=== PATIENT | male | born 1935 | race Caucasian/White ===

== ENCOUNTER 2017-09-26 08:39 | Emergency (ER) | payer MEDICARE, OTHER ==
[~2017-09-26] VITALS: Ht 180.3 cm; Wt 106.6 kg
[~2017-09-26 08:39] MED LIST: ADULT LOW DOSE81 MG PO; ALBUTEROL S5 MG/1 ML INH; ALLOPURINOL100 MG PO; AMLODIPINE BESYL5 MG PO; ATENOLOL100 MG PO; ATORVASTATIN CA40 MG PO; CEPHALEXIN500 MG PO; DOXAZOSIN MESYLA1 MG PO; DOXAZOSIN MESYLA8 MG PO; FLOMAX0.4 MG PO; HYDROCODON-ACE1 EA10 PO; IBUPROFEN600 MG PO; LIPITOR20 MG PO; LISINOPRIL10 MG PO; METFORMIN HCL500 MG PO; NORCO 5-325 TA1 EACH PO; OCUVITE SOFTGE1 EACH PO; PANTOPRAZOLE SO40 MG PO; PERCOCET 5-3251 EACH PO; PROTONIX40 MG PO; TESTOSTERO200 MG/1 M IM; TUMS200 MG PO
[2017-09-26] MEDS ORDERED: ONDANSETRON ODT8 MG PO (10:09)
[2017-09-26] MEDS ORDERED: NORCO 5-325 TA1 EACH PO (10:09)
== END 2017-09-26 10:28 | disposition home or self-care (01) ==
LOC: ED 08:39
DX: T21.14XA Burn of first degree of lower back, initial encounter (principal); T31.0 Burns involving less than 10% of body surface; M54.5 Low back pain; I10 Essential (primary) hypertension; Z87.01 Personal history of pneumonia (recurrent); Z91.041 Radiographic dye allergy status; Z79.899 Other long term (current) drug therapy; Z79.82 Long term (current) use of aspirin; X16.XXXA Contact with hot heating appliances, radiators and pipes, initial encounter
CPT/HCPCS: 81001; 99283

== ENCOUNTER 2018-08-19 09:25 | Emergency (ER) | payer MEDICARE, OTHER ==
[~2018-08-19] VITALS: Ht 180.3 cm; Wt 106.6 kg
[~2018-08-19 09:25] MED LIST changes: +ONDANSETRON ODT8 MG PO
== END 2018-08-19 13:36 | disposition home or self-care (01) ==
LOC: ED 09:25
DX: R10.9 Unspecified abdominal pain (principal); I10 Essential (primary) hypertension; Z87.442 Personal history of urinary calculi; Z87.01 Personal history of pneumonia (recurrent); Z90.49 Acquired absence of other specified parts of digestive tract; Z91.041 Radiographic dye allergy status; Z79.899 Other long term (current) drug therapy; Z79.82 Long term (current) use of aspirin
CPT/HCPCS: 99283

== ENCOUNTER 2018-11-24 08:40 | Emergency (ER) | payer MEDICARE, OTHER ==
[~2018-11-24] VITALS: Ht 180.3 cm; Wt 106.6 kg
[2018-11-24] MEDS ORDERED: NORVASC5 MG PO (12:20)
[2018-11-24] MEDS ORDERED: LIPITOR40 MG PO (12:21)
== END 2018-11-24 13:52 | disposition home or self-care (01) ==
LOC: ED 08:40
PROC: 4A0D7LZ Measurement of Urinary Volume, Via Natural or Artificial Opening (ICD-10-PCS; principal; 2018-11-24)
DX: R53.1 Weakness (principal); R35.0 Frequency of micturition; I10 Essential (primary) hypertension; Z87.01 Personal history of pneumonia (recurrent); Z87.442 Personal history of urinary calculi; Z90.49 Acquired absence of other specified parts of digestive tract; Z91.041 Radiographic dye allergy status; Z79.899 Other long term (current) drug therapy; Z79.82 Long term (current) use of aspirin
CPT/HCPCS: 51798; 80053; 81001; 84484; 85025; 99284-25; J7040

== ENCOUNTER 2019-12-15 10:17 | Emergency (ER) | payer MEDICARE, OTHER ==
[~2019-12-15] VITALS: Ht 180.3 cm; Wt 106.6 kg
--- OUTSIDE RECORDS SUMMARY | ~2019-12-15 | XMS | Encounter Summary ---
Demographics + + + | Address | [address] | | | [place] [address] | + + + | Home Phone | | + + + | Preferred Language | Unknown | + + + | Marital Status | | + + + | Caodaism Affiliation | 1013 | + + + | Race | Unknown | + + + | Ethnic Group | Unknown | + + + Author + + + | Author | [facility] | | | and [place] | + + + | Organization | [facility] | | | and [place] | + + + | Address | Unknown | + + + | Phone | Unavailable | + + + Support + + + + + | Name | Relationship | Address | Phone | + + + + + | Katie Yusuf | ECON | [address] | | | | | [place] [address] | | + + + + + | Melissa Daley | ECON | [address] | | | | | [place] [address] | | + + + + + Care Team Providers + +------+ + | Care Bacon De Rinder Name | Role | Phone | + +------+ + | Jona Deal MD | PCP | | + +------+ + Reason for Visit +--------+--------+ + | Reason | Onset | Comments | | | Date | | +--------+--------+ + | Other | 06/03/ | | | | 2011 | | +--------+--------+ + Encounter Details +--------+ + + + + | Date | Type | Department | Care Team | Description | +--------+ + + + + | 06/03/ | Telephone | [facility] | Jared Garcia, | Other | | 2011 | | PULMONARY [address] | RN | | | | | [place], | | | | | | [place] [address] | | | | | | [phone] | | | +--------+ + + + + Social History + +-------+ +--------+------+ | Tobacco Use | Types | Packs/Day | Years | Date | | | | | Used | | + +-------+ +--------+------+ | Never Smoker | | | | | + +-------+ +--------+------+ + + +---------+ + | Alcohol Use | Drinks/Week | oz/Week | Comments | + + +---------+ + | No | | | | + + +---------+ + + + + | Sex Assigned at | Date Recorded | | | | + + + | Not on file | | + + + documented as of this encounter Miscellaneous Notes Telephone Encounter - Jared Garcia RN - 06/03/2012 2:30 PM PSTSusan Velasquez and relay ed this message. Okay per patient.Electronically signed by Jared Garcia RN at 2 2:30 PM PSTTelephone Encounter - Jared Garcia RN - 06/03/2012 2:29 PM PSTKoby masters opied by JARED GARCIA on ThuJun 03, 2012 1429 ------ Message from: ERNESTO QUACH Created: ThuJun 02, 2012 1305 Please let Mr. Daley know his chest x-ray looks improved. documented in this encounter Plan of Treatment +--------+---------+ + + + | Date | Type | Specialty | Care Team | Description | +--------+---------+ + + + | 01/12/ | Office | Neurology | Erica Nova | | | 2020 | Visit | | MD Sebastian [address] | | | | | | [place] | | | | | | [place] [address] | | | | | | [phone] | | | | | | | | +--------+---------+ + + + documented as of this encounter Visit Diagnoses Not on filedocumented in this encounter"
--- OUTSIDE RECORDS SUMMARY | ~2019-12-15 | XMS | Encounter Summary ---
Demographics + + + | Address | [address] | | | [place] [address] | + + + | Home Phone | | + + + | Preferred Language | Unknown | + + + | Marital Status | | + + + | Anabaptist Affiliation | 1013 | + + + | Race | Unknown | + + + | Ethnic Group | Unknown | + + + Author + + + | Author | [facility] | | | and [place] | + + + | Organization | [facility] | | | and [...] | | | | | [place] [address] | | + + + + + | Melissa Daley | ECON | [address] | | | | | [place] [address] | | + + + + + Care Team Providers + +------+ + | Care Rocket Engine Component Mechanic Name | Role | Phone | + +------+ + | Unknown, Doctor | PCP | | + +------+ + Encounter Details +--------+ + + + + | Date | Type | Department | Care Team | Description | +--------+ + + + + | 05/31/ | Abstract | [facility] [place] | Offenstein, | Abnormal chest CT; | | 2011 | | PULMONARY [address] | Carmelita Penny MD | Respiratory failure | | | | [place], | | ([facility]); Chronic | | | | [place] [address] | | hypoxemic | | | | [phone] | | respiratory failure | | | | | | ([facility]); Pneumonia; | | | | | | Bronchiectasis | | | | | | (HCC); Renal | | | | | | calculi; GERD | | | | | | (gastroesophageal | | | | | | reflux disease); | | | | | | Osteoarthritis; | | | | | | Pulmonary | | | | | | hypertension (HCC); | | | | | | Dyslipidemia | +--------+ + + + + Social [...] + + + | Blood Pressure | 153/86 | 05/31/2012 1:14 PM | | | | | PST | | + + + + + | Pulse | 72 | 05/31/2012 1:14 PM | | | | | PST | | + + + + + | Temperature | 36.4 C (97.5 F) | 05/31/2012 1:14 PM | | | | | PST | | + + + + + | Respiratory Rate | 20 | 05/31/2012 1:14 PM | | | | | PST | | + + + + + | Oxygen Saturation | 90% | 05/31/2012 1:14 PM | | | | | PST | | + + + + + | Inhaled Oxygen | - | - | | | Concentration | | | | + + + + + | Weight | - | - | | + + + + + | Height | - | - | | + + + + + | Body Mass Index | - | - | | + + + + + documented in this encounter Plan of Treatment +--------+---------+ + + + | Date | Type | Specialty | Care Team | Description | +--------+---------+ + + + | 01/12/ | Office | Neurology | Erica Nova | | | 2019 | Visit | | MD Sebastian [address] | | | | | | [place] | | | | | | [place] [address] | | | | | | [phone] | | | | | | | | +--------+---------+ + + + documented as of this encounter Visit Diagnoses + + | Diagnosis | + + | Abnormal chest CT Nonspecific (abnormal) findings on radiological and other | | examination of other intrathoracic organs | + + | Respiratory failure (HCC) Acute respiratory failure | + + | Chronic hypoxemic respiratory failure (HCC) Chronic respiratory failure | + + | Pneumonia Pneumonia, organism unspecified | + + | Bronchiectasis (HCC) Bronchiectasis without acute exacerbation | + + | Renal calculi Calculus of kidney | + + | GERD (gastroesophageal reflux disease) Esophageal reflux | + + | Osteoarthritis Osteoarthrosis, unspecified whether generalized or localized, | | unspecified site | + + | Pulmonary hypertension (HCC) Other chronic pulmonary heart diseases | + + | Dyslipidemia Other and unspecified hyperlipidemia | + + documented in this encounter"
--- OUTSIDE RECORDS SUMMARY | ~2019-12-15 | XMS | Clinical Summary ---
Demographics + + + | Address | [address] | | | [place] [address] | + + + | Home Phone | | + + + | Preferred Language | Unknown | + + + | Marital Status | | + + + | Restorationism Affiliation | 1013 | + + + | Race | Unknown | + + + | Ethnic Group | Unknown | + + + Author + + + | Author | [facility] | | | and [place] | + + + | Organization | [facility] | | | [...] | | | | | [place] [address] | | + + + + + | Melissa Daley | ECON | [address] | | | | | [place] [address] | | + + + + + Care Team Providers + +------+ + | Care Laboratory Mechanic Helper Name | Role | Phone | + +------+ + | Jona Deal MD | PCP | | + +------+ + Allergies + + + + + + | Active Allergy | Reactions | Severity | Noted | Comments | | | | | Date | | + + + + + + | Meperidine | | | 12/04/10 | | | | | | 12 | | + + + + + + | Iodine | | | 12 | IV Iodine | | | | | 12 | | + + + + + + | Morphine | | | 1220 | | | | | | 12 | | + + + + + + Medications + + + +---------+------+------+-------+ | Medication | Sig | Dispensed | Refills | Star | End | Statu | | | | | | t | Date | s | | | | | | Date | | | + + + +---------+------+------+-------+ | allopurinol | Take 100 mg by mouth | | 0 | | | Activ | | (ZYLOPRIM) 100 mg | Daily. | | | | | e | | tablet | | | | | | | + + + +---------+------+------+-------+ | amLODIPine | Take 2.5 mg by mouth | | 0 | | | Activ | | (NORVASC) 5 mg | Daily. | | | | | e | | tablet | | | | | | | + + + +---------+------+------+-------+ | atorvaSTATin | Take 20 mg by mouth | | 0 | 12/1 | | Activ | | (LIPITOR) 40 mg | nightly. | | | / | | e | | tablet | | | | 16 | | | + + + +---------+------+------+-------+ | doxazosin | take 1/2 tablet by | | 0 | 01/3 | | Activ | | (CARDURA) 8 MG | mouth twice a day | | | 0/20 | | e | | tablet | | | | 17 | | | + + + +---------+------+------+-------+ | pantoprazole | Take 40 mg by mouth | | 0 | 11/2 | | Activ | | (PROTONIX) 40 mg | Daily. | | | /20 | | e | | tablet | | | | 16 | | | + + + +---------+------+------+-------+ | aspirin 325 mg | Take 325 mg by mouth | | 0 | | | Activ | | tablet | Daily. | | | | | e | + + + +---------+------+------+-------+ | atenolol | Take 1 tablet by | | 0 | 05/22 | | Activ | | (TENORMIN) 50 mg | mouth 2 times daily. 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 | 2014 | | classifiable elsewhere | | + + + | Sleepiness | 2014 | + + + | Abnormal humeral head xray | 07/26/2013 | + + + | Diabetes mellitus, type 2 | 04/01/2013 | + + + | Chronic rhinitis | 06/02/2012 | + + + | BOOP (bronchiolitis obliterans with organizing pneumonia) | 06/02/2012 | + + + | Bronchiectasis | 05/31/2012 | + + + | GERD (gastroesophageal reflux disease) | 05/31/2012 | + + + | Osteoarthritis | 05/31/2012 | + + + | Dyslipidemia | 05/31/2012 | + + + | Peripheral vascular disease | | + + + | Prostatic hyperplasia, benign localized, with obstruction | | + + + | Gastro-esophageal reflux disease with esophagitis | | + + + | Gout | | + + + | Bilateral nephrolithiasis | | + + + | Intermittent claudication | | + + + | Hyperlipoproteinemia | | + + + + + | Overview: Hyperlipoproteinemia Type-Ii-a | + + Resolved Problems + + + + | Problem | Noted | Resolved | | | Date | Date | + + + + | Diabetes in | 06/02/20 | | | | 12 | 2 | + + + + | 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 | | | | 12 | 3 | + + + + | Abnormal chest CT | 05/31/20 | | | | 12 | 2 | + + + + | Respiratory failure | 05/31/20 | | | | 12 | 2 | + + + + | Chronic hypoxemic respiratory failure | 05/31/20 | | | | 12 | 2 | + + + + | Pneumonia | 05/31/20 | | | | 12 | 3 | + + + + | Renal calculi | 05/31/20 | | | | 12 | 3 | + + + + | Pulmonary hypertension | 05/31/20 | | | | 12 | 2 | + + + + Encounters +--------+ + + + + | Date | Type | Specialty | Care Team | Description | +--------+ + + + + | 12/14/ | Imaging | Radiology | Sowmya Sykes | | 2019 | Exam | | MD Joy | | +--------+ + + + + | 12/14/ | Hospital | | Kiko Garrido, | | | 2019 | Encounter | | | | +--------+ + + + + | 09/25/ | Telephone | Neurology | Erica Nova | Appointment | | 2019 | | | MD Sebastian | | +--------+ + + + + from Last 3 Months Immunizations + + + + | Name | Administration Dates | Next Due | + + + + | INFLUENZA PF 16 Y OR | 03/25/2013, 05/25/2012 | | | >,TRIVALENT | | | | RECOMBINANT | | | + + + + | PNEUMOCOCCAL | 07/21/2012, 06/23/2002 | | | POLYSACCHARIDE | | | | 23-VALENT (PPSV23) | | | + + + + Family History + + +------+ + | Medical History | Relation | Name | Comments | + + +------+ + | Heart attack | Father | | | + + +------+ + | Kidney disease | Sister | | | + + +------+ + | Other (see comment) | Sister | | hemodialysis | + + +------+ + | Hypertension | Sister | | | + + +------+ + | Diabetes | Sister | | | + + +------+ + + +------+ + + | Relation | Name | Status | Comments | + +------+ + + | Father | | | | + +------+ + + | Mother | | | | + +------+ + + | Sister | | | | + +------+ + + | Sister | | | | + +------+ + + | Sister | | | | + +------+ + + | Sister | | | | + +------+ + + Social History + +-------+ +--------+------+ [...] on file | | + + + Last Filed Vital Signs + + + + + | Vital Sign | Reading | Time Taken | Comments | + + + + + | Blood Pressure | 142/86 | 06/08/2017 2:16 PM | | | | | PST | | + + + + + | Pulse | 66 | 06/08/2017 2:16 PM | | | | | PST | | + + + + + | Temperature | 37.1 C (98.8 F) | 06/08/2017 2:16 PM | | | | | PST | | + + + + + | Respiratory Rate | 18 | 06/08/2017 2:16 PM | | | | | PST | | + + + + + | Oxygen Saturation | 95% | 06/08/2017 2:16 PM | | | | | PST | | + + + + + | Inhaled Oxygen | - | - | | | Concentration | | | | + + + + + | Weight | 109.5 kg (241 lb 6.5 | 06/08/2017 2:16 PM | | | | oz) | PST | | + + + + + | Height | 175.3 cm (5' 9") | 06/08/2017 2:16 PM | | | | | PST | | + + + + + | Body Mass Index | 35.65 | 06/08/2017 2:16 PM | | | | | PST | | + + + + + Plan of Treatment +--------+---------+ + + + | Date | Type | Specialty | Care Team | Description | +--------+---------+ + + + | 01/12/ | Office | Neurology | Erica Nova | | | 2020 | Visit | | MD Sebastian [address] | | | | | | [place] | | | | | | [place] [address] | | | | | | [phone] | | | | | | | | +--------+---------+ + + + + + + + + | Health Maintenance | Due Date | Last | Comments | | | | Done | | + + + + + | Diabetic Eye Exam | | | | | | 1 | | | + + + + + | Diabetic Foot Exam | | | | | | 1 | | | + + + + + | Vaccine: | | | | | Dtap/Tdap/Td (1 - | 2 | | | | Tdap) | | | | + + + + + | Vaccine: Zoster (1 | | | | | of 2) | 3 | | | + + + + + | Hemoglobin A1c | | 01/13/20 | | | Screening | 4 | 14 | | + + + + + | Adult Annual | | | | | Wellness Visit | 5 | | | + + + + + | Microalbumin | | | | | Screening | 5 | | | + + + + + | Vaccine: Influenza | | 03/25/20 | | | (Season Ended) | 0 | 13, | | | | | 05/25/20 | | | | | 12 | | + + + + + | Vaccine: | Completed | 07/21/19 | | | Pneumococcal 65+ | | 13, | | | | | 06/23/19 | | | | | 03 | | + + + + + Procedures + +--------+ + + + | Procedure Name | Priori | Date/Time | Associated Diagnosis | Comments | | | ty | | | | + +--------+ + + + | CT ABDOMEN PELVIS WO | Routin | 12/15/2019 | | Results for this | | CONTRAST | e | 3:03 PM | | procedure are in the | | | | PDT | | results section. | + +--------+ + + + from Last [address] Abdomen Pelvis wo Contrast (12/15/2019 3:03 PM PDT) + + | Specimen | [...] | | | + +---------+ + + from Last 3 Months Insurance + +--------+ +--------+ + +--------+ | Payer | Benefi | Subscriber | Effect | Phone | Address | Type | | | t Plan | ID | mike | | | | | | / | | Dates | | | | | | Group | | | | | | + +--------+ +--------+ + +--------+ | MEDICARE | MEDICA | [id number] | 12/20/18 | [phone] | | Medica | | | RE | | 98-Pre | 5 | | re | | | PART A | | sent | | | | | | AND B | | | | | | + +--------+ +--------+ + +--------+ | MEDICARE | MEDICA | [id number] | 12/20/18 | [phone] | | Medica | | | RE | | 98-Pre | 5 | | re | | | PART A | | sent | | | | | | AND B | | | | | | + +--------+ +--------+ + +--------+ | MODA | MODA | [id number] | 06/22/19 | [phone] | [address] | Indemn | | | HEALTH | | 19-Pre | 9 | [phone] | ity | | | MDCR | | sent | | [place], | | | | [place] | | | | [place] [address] | | + +--------+ +--------+ + +--------+ | MODA | MODA | [id number] | 08/21/19 | [phone] | [address] | Indemn | | | HEALTH | | 08-Pre | 9 | [phone] | ity | | | MDCR | | sent | | [place], | | | | [place] | | | | [place] [address] | | + +--------+ +--------+ + +--------+ + +--------+ +--------+ + + | Guarantor Name | Accoun | Relation to | Date | Phone | Billing Address | | | t Type | Patient | of | | | | | | | | | | + +--------+ +--------+ + + | Ron Daley | Person | Self [birth year] | [address] | | [place] | al/Fam | | 1935 | [phone] | [address] [place], | | | [place] | | | [address] (Home) | [place] [address] | + +--------+ +--------+ + + | Ron Daley | Person | Self | [birth year] | [address] | | [place] | al/Fam | | 1935 | [phone] | [address] [place], | | | [place] | | | [address] (Home) | [place] [address] | + +--------+ +--------+ + + Advance Directives + + + + + | Type | Date Recorded | Patient | Explanation | | | | Composing Machine Operator/Tender | | + + + + + | Power of | | | | | Strip Deburrer | | | | + + + + + | Advance | | | | | Directive | | | | + + + + +
--- OUTSIDE RECORDS SUMMARY | ~2019-12-15 | XMS | Encounter Summary ---
Demographics + + + | Address | [address] | | | [place] [address] | + + + | Home Phone | | + + + | Preferred Language | Unknown | + + + | Marital Status | | + + + | Samaritan Affiliation | 1013 | + + + | Race | Unknown | + + + | Ethnic Group | Unknown | + + + Author + + + | Author | [facility] | | | and [place] | + + + | Organization | [facility] | | | [...] | | | | | [place] [address] | | + + + + + | Melissa Sheldon | ECON | [address] | | | | | [place] [address] | | + + + + + Care Team Providers + +------+ + | Care Triage Specialist Name | Role | Phone | + +------+ + | Jona Deal MD | PCP | | + +------+ + Encounter Details +--------+ + + + + | Date | Type | Department | Care Team | Description | +--------+ + + + + | 07/21/ | Hospital | [facility] | Offenstein, | BOOP (bronchiolitis | | 2012 - | Encounter | MED CTR XRAY [address] | Carmelita Penny MD | obliterans with | | | | [place] | | organizing | | 07/23/ | | [place] [address] | | pneumonia) (HCC) | | 2012 | | [phone] | | | +--------+ + + + [...] +---------+ + + | metFORMIN | Take 500 mg by mouth | | 0 | 07/21/19 | | | (GLUCOPHAGE) 500 mg | 2 times daily. | | | 13 | 3 | | tablet | | | | | | + + + +---------+ + + | metFORMIN | Take 1 tablet by | 30 | 0 | 07/21/19 | | | (GLUCOPHAGE) 500 mg | mouth daily (with | tablet | | 13 | 3 | | tabletIndications: | breakfast). | | | | | | BOOP (bronchiolitis | | | | | | | obliterans with | | | | | | | organizing | | | | | | | pneumonia) ([facility]) | | | | | | + + + +---------+ + + | omeprazole | Take 20 mg by mouth | | 0 | | | | (PRILOSEC) 20 mg | 2 times daily. | | | | 3 | | capsule | | | | | | + + + +---------+ + + | predniSONE | Take 0.5 tablets by | | 0 | 07/21/19 | | | (DELTASONE) 10 mg | mouth Every other | | | 13 | 3 | | tabletIndications: | day. | | | | | | BOOP (bronchiolitis | | | | | | | obliterans with | | | | | | | organizing | | | | | | | pneumonia) ([facility]) | | | | | | + + + +---------+ + + | testosterone | Inject 200 mg of | | 0 | | 02/06/201 | | (ANDROGEL) 50 mg/5 g | [...] | | | | | [place] [address] | | | | | | [phone] | | | | | | | | +--------+---------+ + + + documented as of this encounter Procedures + +--------+ + + + | Procedure Name | Priori | Date/Time | Associated Diagnosis | Comments | | | ty | | | | + +--------+ + + + | XR CHEST PA AND | Routin | 07/21/2012 | BOOP | Results for this | | LATERAL | e | 11:21 AM | (bronchiolitis | procedure are in the | | | | PST | obliterans with | results section. | | | | | organizing | | | | | | pneumonia) (HCC) | | + +--------+ + + + documented in this encounter Results XR Chest PA and Lateral (07/21/2012 11:21 AM PST) + + | Specimen | + + | | + + + + + | Narrative | Performed At | + + + | [facility] | [place] | | Department [address] [place] | [facility] | | [ rep ct [address]] [ rep ct [facility] | | st zip] Signed | - IMAGING | | | | | Patient Name: RON SHELDON V Physician: | | | OFFE. : 1935 Age: 77 Sex: M Unit #: [id number] | | | Exam Date: 07/21/12 [place] [facility] [place] | | Report #: [id number] Page: | | | %(RAD)RES..mtdd.print.filter("pg") of %(RAD) | | | RES..mtdd.print.filter("tpg") | | | | | | Accession Number: [id number] | | | PA AND LATERAL TWO VIEW CHEST X-RAY CLINICAL HISTORY: | | | FOLLOW UP BOOP. COMPARISON: 06/23/2012 and multiple | | | x-rays dating back to April 2012. CT chest 05/17/2012. | | | FINDINGS: Heart size and mediastinal contours are within normal | | | limits. There is stable widespread patchy increased lung | | | opacification with linear and patchy components. Density in the | | | region of the horizontal fissure is unchanged, consistent with | | | scarring. Perihilar region increased density is also unchanged. | | | There is no superimposed focal consolidation to suggest pneumonia. | | | There is no pleural effusion or pneumothorax. There is | | | flattening of the hemidiaphragms. There is diffuse degenerative | | | disk disease with bridging osteophyte formation and some suggestion of | | | ankylosis. There is osteopenia. Degenerative change is seen in | | | both shoulders. IMPRESSION: NO CHANGE IN THE | | | DIFFUSE PULMONARY DENSITIES COMPARED WITH 06/23/2012. | | | Dictated Date/Time: 07/21/2012 11:21 Transcribed Date/Time: | | | 07/21/2012 11:27 Policeman: | | | <<Signature on File>> | | | Kiko | | | Melina Hair MD07/21/121920 <Electronically signed by Kiko Summers | | | Laxmi TERAN> Kiko Hair MD 07/21/12 1121 | | | Policeman: [employer] [id number]/30/13 1127 | | | Carmelita Mckeon MD | | + + + + + + + + | Performing | Address | City/State/Zipcode | Phone Number | | Organization | | | | + + + + + | [facility] | [address] 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
--- OUTSIDE RECORDS SUMMARY | ~2019-12-15 | XMS | Encounter Summary ---
Demographics + + + | Address | [address] | | | [place] [address] | + + + | Home Phone | | + + + | Preferred Language | Unknown | + + + | Marital Status | | + + + | Baptism Affiliation | 1013 | + + + | Race | Unknown | + + + | Ethnic Group | Unknown | + + + Author + + + | Author | [facility] | | | and [place] | + + + | Organization | [facility] | | [...] | | | | | [place] [address] | | + + + + + | Melissa Daley | ECON | [address] | | | | | [place] [address] | | + + + + + Care Team Providers + +------+ + | Care Corporate Counsel Name | Role | Phone | + [...] Description | +--------+--------+ + + + | 12/12/ | Refill | [facility] | Mike, | Medication Refill | | 2012 | | PULMONARY [address] | Carmelita Penny MD | | | | | [place], | | | | | | [place] [address] | | | | | | [phone] | | | +--------+--------+ + + + [...] | Visit | | MD Sebastian [address] | | | | | | [place] | | | | | | [place] [address] | | | | | | [phone] | | | | | | | | +--------+---------+ + + + documented as of this encounter Visit Diagnoses Not on filedocumented in this encounter"
--- OUTSIDE RECORDS SUMMARY | ~2019-12-15 | XMS | Encounter Summary ---
Demographics + + + | Address | [address] | | | [place] [address] | + + + | Home Phone | | + + + | Preferred Language | Unknown | + + + | Marital Status | | + + + | Mandaeism Affiliation | 1013 | + + + | Race | Unknown | + + + | Ethnic Group | Unknown | + + + Author + + + | Author | [facility] | | | and [place] | + + + | Organization | [facility] | | [...] | | | | | [place] [address] | | + + + + + | Melissa Daley | ECON | [address] | | | | | [place] [address] | | + + + + + Care Team Providers + +------+ + | Care Forestry Patrolman Name | Role | Phone | + +------+ + | Jona Mcintosh MD | PCP | | + +------+ + Encounter Details +--------+ + + + + | Date | Type | Department | Care Team | Description | +--------+ + + + + | 04/30/ | Emergency | [facility] | Anthony Ramirez | Syncope, vasovagal | | 2013 | | [facility] | MD [address] | | | | | EM[facility]Y [facility]ENTER | [place], | | | | | [address] [facility] [facility] | [place] [address] | | | | | [place], [place] | [phone] | | | | | [address] | | | | | | [phone] | | | +--------+ + + + [...] + +---------+ + + | fluticasone | | | 0 | 06/29/19 | | | (FLONASE) 50 | | | | 14 | 7 | | mcg/nasal spray | | | | | | + [...] + + documented as of this encounter ED Notes Conversion Transaction, Provider Unknown - 04/30/2014 12:47 PM PSTFormatting of this note m ight be different from the original. ED Notes by Cecelia Alamo at 04/30/14 1247 Author: Cecelia Alamo Service: (none) Author Type: Gravure Printing Machinist Filed: 04/30/141246 Date of Service: 04/30/141246 Status: Signed Researcher: Cecelia Alamo (Gravure Printing Machinist) EKG completed, results given to Dr Hugh Alamo 04/30/141246 Anthony Awan MD - 04/30/2014 12:04 PM PST ED Provider Notes by Anthony Ramirez MD at 04/30/14 1204 Author: Anthony Ramirez MD Service: Emergency Department Author Type: Physician Filed: 04/30/14 1758 Date of Service: 04/30/14 120 Status: Signed Researcher: Anthony Ramirez MD (Physician) [facility] Department of Emergency Medicine 04/30/14 12:04 PM History of Present Illness Patient Identification Ron Daley is a 79 y.o. male. Patient information was obtained from patient. History/Exam limitations: none. Patient presented to the Emergency Department by: Car Chief Complaint Chief Complaint Patient presents with Syncope pt was a visiting in ICU, had syncopal episode. "I was visiting my who had heart s urgery yesterday. I was standing." The patient presents to ED with complaints of syncope. 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 The symptoms are described to be of moderate severity. The patient describe s the quality and location of the symptoms as the following: The pt reports he was visiting his in ICU after she had heart surgery and the began to become lightheaded. The pt's re lative reports the pt stopped talking and began to slide down the wall. The pt's relative re ports the pt was sitting down and would not talk for a minute or less and then began talking again. The pt reports having breakfast this morning. The patient also complains of nausea. Patient denies diaphoresis, fever, cough, or congestion. No care REGIONAL MARKETING DIRECTOR. The pt reports he has never passed out in the past and denies hx of seizures. PMHx: Pneumonia treated with steroids which caused the pt to have high blood sugar. Hypertension. The pt reports having kidney stones about a week ago and reports he has not passed the ston e yet. PCP: JONA MCINTOSH Past Medical History Diagnosis Date Pneumonia 2012 Diabetes mellitus, type 2 Hypertension Gout GERD (gastroesophageal reflux disease) Arthritis Past Surgical History Procedure Laterality Date Knee arthroplasty Bilateral Ankle fusion Right Rotator cuff repair Right Prior to Admission medications Medication Sig Start Date End Date Taking? Authorizing Provider amLODIPine (NORVASC) 2.5 MG tablet Take 2.5 mg by mouth daily. Yes Historical Provider atenolol (TENORMIN) 100 MG tablet Take 100 mg by mouth 2 (two) times daily. Yes Historica l Provider atorvastatin (LIPITOR) 20 MG tablet Take 20 mg by mouth nightly. Yes Historical Provider doxazosin (CARDURA) 4 MG tablet Take 4 mg by mouth 2 (two) times daily. Yes Historical Pr ovider No Known Allergies History Social History Marital Status: Spouse Name: N/A Number of Children: N/A Years of Education: N/A Occupational History Not on file. Social History Main Topics Smoking status: Never Smoker Smokeless tobacco: Never Used Alcohol Use: No Drug Use: Not on file Sexually Active: Not on file Other Topics Concern Not on file Social History Narrative History reviewed. No pertinent family history. Review of Systems Constitutional: Negative for fever, chills, diaphoresis Eyes: Negative for vision changes Nose: Negative for congestion, nosebleeds Throat: Negative for sore throat CV/Resp: Negative for chest pain, ncwjvabky-[id number]-nkgpka, cough GI: Positive for nausea Negative for abdominal pain, vomiting, or diarrhea : Negative for urinary problems Musculoskeletal: Negative for back pain, joint pain Skin: Negative for rash Neuro/Psych: Positive for syncope and lightheadedness Negative for headache Endo/heme/Lymph: Negative for swollen lymph nodes, easy bruising All other systems reviewed and negative except as noted. Physical Exam BP 134/75 | Pulse 68 | Temp(Src) 98.5 F (36.9 C) (Temporal) | Resp 16 | Wt 105.688 kg ( 233 lb) | SpO2 95% Vital signs interpretation: Normal Pulse Oximetry interpretation: Normal General: Alert, awake, and well oriented, in no apparent distress Eyes: Normal inspection, pupils equal and round, non-icteric HEENT: NCAT Ears normal TMs nl Nose normal Pharynx normal Nl oropharyngeal mucosa Voice nl Neck: Normal inspection, normal ROM with no apparent pain No lymphadenopathy No JVD Cardiovascular: Rate and rhythm normal No murmurs, no bruit or gallop Good distal pulses and good cap refill Chest: Non tender, good excursion Respiratory: Breath sounds normal bilaterally No rales, wheezing or rhonchi No accessory muscle use Abdomen: Soft, non-tender at this time, non-distended Normal active bowel sounds No organomegaly No guarding or rebound Back: Normal inspection, good ROM without apparent pain Extremities: No edema, good ROM without aparent pain Skin: Color normal Warm and dry No rash Neuro: Alert, no AMS No motor deficit No sensory deficit Medical Decision Making and Emergency Department Course ED Department Course Patient presents to ED with complaints of one syncopal episode. The pt has an unremarkable exam. My DDx includes, but is not limited to: vasovagal syncope, ACS, arrhythmia, bleeding, cerebral vascular insufficiency, vs other. Will order EKG, cardiac panel, and reevaluate the patient. Patient is stable at this time. 12:11 PM Cardiac panel reviewed, which appears good. Will repeat heart enzyme labs. 12:59 PM Pt reevaluation. Pt is stable and reports feeling better at this time. I have disc ussed my clinical impression and treatment plan with the pt. We have specifically discussed the signs and symptoms that would constitute the need for an immediate return to the ED, the importance of continued outpatient f/u and the importance of compliance with the d/c instru ctions. I have answered any questions that the pt has to the best of my ability. Based upon the pt s history, physical exam, ED course, and diagnostic studies, I feel that there is n o current emergent medical condition that warrants admission, transfer, or further ED treatm ent at this time. Records Reviewed Old medical records. Nursing notes. Laboratory Evaluation Results Procedure Component Value Ref Range Date/Time Troponin I, Lab [[id number]] Collected: 04/30/14 1134 Order Status: Completed Updated: 04/30/14 1205 Specimen Information: Blood TROPONIN I <0.020 0.00 - 0.10 ng/mL Cardiac Panel [[id number]] (Abnormal) Collected: 04/30/14 1134 Order Status: Completed Updated: 04/30/14 1205 WBC 5.9 3.8 - 11.0 K/uL RBC 4.28 4.20 - 5.70 M/uL HGB 14.8 13.2 - 17.0 g/dL HCT 44.0 39.0 - 50.0 % MCV 103.0 (H) 80.0 - 100.0 fl MCH 34.6 (H) 27.0 - 34.0 pg MCHC 33.6 32.0 - 35.5 g/dL RDW SD 48.6 37 - 53 fl PLT 175 150 - 400 K/uL MPV 8.5 fl DIFF TYPE AUTOMATED NEUTROPHILS 68.4 % LYMPHOCYTES 23.0 % MONOCYTES 7.5 % EOSINOPHILS 0.4 % BASOPHILS 0.7 % NEUTROPHILS ABS 4.1 1.9 - 7.4 K/uL LYMPHOCYTES ABS 1.4 1.0 - 3.9 K/uL MONOCYTES ABS 0.4 0 - 0.8 K/uL EOSINOPHILS ABS 0.0 0 - 0.5 K/uL BASOPHILS ABS 0.0 0 - 0.1 K/uL SODIUM 143 135 - 143 mmol/L POTASSIUM 3.9 3.5 - 4.9 mmol/L CHLORIDE 112 (H) 99 - 109 mmol/L CO2 26 23 - 32 mmol/L ANION GAP AGAP 9 5 - 20 mmol/L GLUCOSE 114 (H) 65 - 99 mg/dL BUN 15 8 - 25 mg/dL CREATININE 1.09 0.70 - 1.30 mg/dL BUN/CREAT 14 CALCIUM 8.5 8.5 - 10.2 mg/dL TOTAL PROTEIN 6.7 6.3 - 8.2 g/dL Albumin 3.7 3.3 - 4.8 g/dL GLOBULIN 3.1 1.3 - 4.9 g/dL A/G 1.2 1.0 - 2.4 TBIL 1.4 0.1 - 1.5 mg/dL ALK PHOS 93 35 - 115 U/L AST 19 10 - 45 U/L ALT 25 10 - 65 U/L EGFR >60 >60 mL/min/1.73m2 CPK 53 (L) 55 - 400 U/L INR 1.1 APTT 21 (L) 23 - 32 seconds MMB 1.1 0.5 - 3.6 ng/mL CK-MB Index 2.1 I personally reviewed the lab results and they have been posted to the chart. Pertinent po sitive and negative findings have been addressed appropriately. Radiology and EKG Evaluation Imaging Results None Secondary EKG done at 12:43 PM: NSR with a rate of 67 bpm Normal intervals Normal axes Normal ST No signs of ischemia This study has been independently viewed and interpreted by me Anthony Ramirez MD ED Diagnosis Final diagnosis Syncope, vasovagal Disposition: ED Disposition Discharge Condition at discharge: Stable Follow-up Information Follow up With Details Comments Contact Info Jona Mcintosh MD In 2 days For follow up [address] [place] [id number] [facility] Emergency Department If symptoms worsen [address] [place] [address] Discharge Medications: Discharge Medication List as of 04/30/2014 1:17 PM Procedures Additional Documentation Procedures Attending Note: Documentation assistance provided by Marisa Yanes (Scribe). Information recorded by the scribe has been reviewed and validated by me. I gumaro [place] with its contents. MD Anthony Calderón MD 04/30/14 5143 onversion Pina saction, Provider Unknown - 04/30/2014 10:31 AM PSTFormatting of this note might be differen t from the original. ED Notes by Anika Lee RN at 04/30/14 1031 Author: Anika Lee RN Service: (none) Author Type: Registered Nurse Filed: 04/30/14 1031 Date of Service: 04/30/14 103 Status: Signed Researcher: Anika Lee RN (Registered Nurse) Laced pt placed in ED Room B for EKG Anika Lee RN 04/30/14 103 docume nted in this encounter Plan of Treatment +--------+---------+ + + + | Date | Type | Specialty | Care Team | Description | +--------+---------+ + + + | 01/12/ | Office | Neurology | Erica Nova | | | 2019 | Visit | | MD Sebastian [address] | | | | | | [place] | | | | | | [place] [address] | | | | | | [phone] | | | | | | | | +--------+---------+ + + + documented as of this encounter Procedures + +--------+ + + + | Procedure Name | Priori | Date/Time | Associated Diagnosis | Comments | | | ty | | | | + +--------+ + + + | ECG 12 LEAD | Routin | 04/30/2014 | | Results for this | | | e | 12:43 PM | | procedure are in the | | | | PST | | results section. | + +--------+ + + + | HISTORICAL LAB PANEL | Routin | 04/30/2014 | | Results for this | | RESULT | e | 11:34 AM | | procedure are in the | | | | PST | | results section. | + +--------+ + + + | TROPONIN I | Routin | 04/30/2014 | | Results for this | | | e | 11:34 AM | | procedure are in the | | | | PST | | results section. | + +--------+ + + + documented in this encounter Results ECG 12 lead (04/30/2014 12:43 PM PST) + + + + + + | Component | Value | Ref Range | Performed | Pathologist | | | | | At | Signature | + + + + + + | DIAGNOSIS: | Normal sinus | | EXTERNAL | | | | rhythmNormal ECGNo | | LAB | | | | previous ECGs | | | | | | availableThis ECG | | | | | | contains Unconfirmed | | | | | | Interpretation | | | | | | Statements. See ED | | | | | | Record for Physician | | | | | | Interpretation. | | | | | | Confirmed by MUSE READ | | | | | | ONLY, -COMPUTER ([id number]), | | | | | | material expeditor Tracie Ortiz | | | | | | (29) on 04/30/2014 | | | | | | 5:19:20 PM | | | | + + + + + + + + | Specimen | + + | | + + + + + | Narrative | Performed At | + + + | Historically converted procedure from [facility] environment | EXTERNAL LAB | + + + + +---------+ + + | Performing | Address | City/State/Zipcode | Phone Number | | Organization | | | | + +---------+ + + | EXTERNAL LAB | | | | + +---------+ + + HISTORICAL LAB PANEL RESULT (04/30/2014 11:34 AM PST) + + + + + -+ | Component | Value | Ref Range | Performed | Pathologist | | | | | At | Signature | + + + + + -+ | WBC | 5.9Comment: Testing | 3.8 - 11.0 K/uL | EXTERNAL | | | | performed at [facility] | | LAB | | | | [address];[place] | | | | | | [address] | | | | + + + + + -+ | Red Blood | 4.28Comment: Testing | 4.20 - 5.70 | EXTERNAL | | | Cells | performed at [facility];[address] | M/uL | LAB | | | Counted | [address];[place] | | | | | | [address] | | | | + + + + + -+ | Hemoglobin | 14.8Comment: Testing | 13.2 - 17.0 | EXTERNAL | | | | performed at [facility];[address] | g/dL | LAB | | | | [address];[place] | | | | | | [address] | | | | + + + + + -+ | Hematocrit, | 44.0Comment: Testing | 39.0 - 50.0 % | EXTERNAL | | | POC | performed at [facility];[address] | | LAB | | | | [address];[place] | | | | | | [address] | | | | + + + + + -+ | MCV | 103.0 (H)Comment: | 80.0 - 100.0 fl | EXTERNAL | | | | Testing performed at | | LAB | | | | [facility];[address] | | | | | | [address];[place] [address] | | | | + + + + + -+ | MCH | 34.6 (H)Comment: Testing | 27.0 - 34.0 pg | EXTERNAL | | | | performed at [facility];[address] | | LAB | | | | [address];[place] | | | | | | [address] | | | | + + + + + -+ | MCHC | 33.6Comment: Testing | 32.0 - 35.5 | EXTERNAL | | | | performed at [facility];[address] | g/dL | LAB | | | | [address];[place] | | | | | | [address] | | | | + + + + + -+ | RDW-CV | 48.6Comment: Testing | 37 - 53 fl | EXTERNAL | | | | performed at [facility];[address] | | LAB | | | | [address];[place] | | | | | | [address] | | | | + + + + + -+ | Platelet | 175Comment: Testing | 150 - 400 K/uL | EXTERNAL | | | Count | performed at [facility];[address] | | LAB | | | Plasma | [address];[place] | | | | | | [address] | | | | + + + + + -+ | MPV | 8.5Comment: Testing | fl | EXTERNAL | | | | performed at [facility];[address] | | LAB | | | | [address];[place] | | | | | | [address] | | | | + + + + + -+ | Differentia | AUTOMATEDComment: | | EXTERNAL | | | l Type | Testing performed at | | LAB | | | | [facility];[address];[place] [address] | | | | + + + + + -+ | % Segmented | 68.4Comment: Testing | % | EXTERNAL | | | | performed at [facility];[address] | | LAB | | | Neutrophils | [address];[place] | | | | | | [address] | | | | + + + + + -+ | % | 23.0Comment: Testing | % | EXTERNAL | | | Lymphocytes | performed at [facility];[address] | | LAB | | | | [address];[place] | | | | | | [address] | | | | + + + + + -+ | % Monocytes | 7.5Comment: Testing | % | EXTERNAL | | | | performed at [facility];[address] | | LAB | | | | [address];[place] | | | | | | [address] | | | | + + + + + -+ | % | 0.4Comment: Testing | % | EXTERNAL | | | Eosinophils | performed at [facility];[address] | | LAB | | | | [address];[place] | | | | | | [address] | | | | + + + + + -+ | % Basophils | 0.7Comment: Testing | % | EXTERNAL | | | | performed at [facility];[address] | | LAB | | | | [address];[place] | | | | | | [address] | | | | + + + + + -+ | Absolute | 4.1Comment: Testing | 1.9 - 7.4 K/uL | EXTERNAL | | | Segmented | performed at [facility];[address] | | LAB | | | Neutrophils | [address];[place] | | | | | | [address] | | | | + + + + + -+ | Absolute | 1.4Comment: Testing | 1.0 - 3.9 K/uL | EXTERNAL | | | Lymphocytes | performed at [facility];[address] | | LAB | | | | [address];[place] | | | | | | [address] | | | | + + + + + -+ | Absolute | 0.4Comment: Testing | 0 - 0.8 K/uL | EXTERNAL | | | Monocytes | performed at [facility];[address] | | LAB | | | | [address];[place] | | | | | | [address] | | | | + + + + + -+ | Absolute | 0.0Comment: Testing | 0 - 0.5 K/uL | EXTERNAL | | | Eosinophils | performed at [facility];[address] | | LAB | | | | [address];[place] | | | | | | [address] | | | | + + + + + -+ | Absolute | 0.0Comment: Testing | 0 - 0.1 K/uL | EXTERNAL | | | Basophils | performed at [facility];[address] | | LAB | | | | [address];[place] | | | | | | [address] | | | | + + + + + -+ | Na | 143Comment: Testing | 135 - 143 | EXTERNAL | | | | performed at [facility];[address] | mmol/L | LAB | | | | [address];[place] | | | | | | [address] | | | | + + + + + -+ | K | 3.9Comment: Testing | 3.5 - 4.9 | EXTERNAL | | | | performed at [facility];[address] | mmol/L | LAB | | | | [address];[place] | | | | | | [address] | | | | + + + + + -+ | Cl | 112 (H)Comment: Testing | 99 - 109 mmol/L | EXTERNAL | | | | performed at [facility];[address] | | LAB | | | | [address];[place] | | | | | | [address] | | | | + + + + + -+ | CO2 | 26Comment: Testing | 23 - 32 mmol/L | EXTERNAL | | | | performed at [facility];[address] | | LAB | | | | [address];[place] | | | | | | [address] | | | | + + + + + -+ | Anion Gap | 9Comment: Testing | 5 - 20 mmol/L | EXTERNAL | | | | performed at [facility];[address] | | LAB | | | | [address];[place] | | | | | | [address] | | | | + + + + + -+ | Glucose, | 114 (H)Comment: Testing | 65 - 99 mg/dL | EXTERNAL | | | Fasting | performed at [facility];[address] | | LAB | | | | [address];[place] | | | | | | [address] | | | | + + + + + -+ | BUN | 15Comment: Testing | 8 - 25 mg/dL | EXTERNAL | | | | performed at [facility];[address] | | LAB | | | | [address];[place] | | | | | | [address] | | | | + + + + + -+ | Creatinine | 1.09Comment: Testing | 0.70 - 1.30 | EXTERNAL | | | | performed at [facility];[address] | mg/dL | LAB | | | | [address];[place] | | | | | | [address] | | | | + + + + + -+ | BUN/Creatin | 14Comment: Testing | | EXTERNAL | | | ine Ratio | performed at [facility];[address] | | LAB | | | | [address];[place] | | | | | | [address] | | | | + + + + + -+ | Calcium | 8.5Comment: Testing | 8.5 - 10.2 | EXTERNAL | | | | performed at [facility];[address] | mg/dL | LAB | | | | [address];[place] | | | | | | [address] | | | | + + + + + -+ | Protein, | 6.7Comment: Testing | 6.3 - 8.2 g/dL | EXTERNAL | | | Total | performed at [facility];[address] | | LAB | | | | [address];[place] | | | | | | [address] | | | | + + + + + -+ | Albumin | 3.7Comment: Testing | 3.3 - 4.8 g/dL | EXTERNAL | | | | performed at [facility];[address] | | LAB | | | | [address];[place] | | | | | | [address] | | | | + + + + + -+ | Globulin | 3.1Comment: Testing | 1.3 - 4.9 g/dL | EXTERNAL | | | | performed at [facility];[address] | | LAB | | | | [address];[place] | | | | | | [address] | | | | + + + + + -+ | A/G Ratio | 1.2Comment: Testing | 1.0 - 2.4 | EXTERNAL | | | | performed at [facility];[address] | | LAB | | | | [address];[place] | | | | | | [address] | | | | + + + + + -+ | Bilirubin | 1.4Comment: Testing | 0.1 - 1.5 mg/dL | EXTERNAL | | | Total | performed at [facility];[address] | | LAB | | | | [address];[place] | | | | | | [address] | | | | + + + + + -+ | ALP, | 93Comment: Testing | 35 - 115 U/L | EXTERNAL | | | External | performed at [facility];[address] | | LAB | | | | [address];[place] | | | | | | [address] | | | | + + + + + -+ | AST | 19Comment: Testing | 10 - 45 U/L | EXTERNAL | | | | performed at [facility];[address] | | LAB | | | | [address];[place] | | | | | | [address] | | | | + + + + + -+ | ALT | 25Comment: Testing | 10 - 65 U/L | EXTERNAL | | | | performed at [facility];[address] | | LAB | | | | [address];[place] | | | | | | [address] | | | | + + + + + -+ | Estimated | >60Comment: GFR <60: | mL/min/1.73m2 | EXTERNAL | | | GFR | CHRONIC KIDNEY DISEASE, | | LAB | | | | IF FOUND OVER A 3 MONTH | | | | | | PERIOD.GFR <15: KIDNEY | | | | | | FAILURE.FOR | | | | | | AMERICANS, MULTIPLY THE | | | | | | CALCULATED GFR BY | | | | | | 1.210.Testing performed | | | | | | at [facility];[address] | | | | | | [address];[place] [address] | | | | + + + + + -+ | CK, Total | 53 (L)Comment: Testing | 55 - 400 U/L | EXTERNAL | | | | performed at [facility];[address] | | LAB | | | | [address];[place] | | | | | | [address] | | | | + + + + + -+ | INR | 1.1Comment: REFERENCE | | EXTERNAL | | | | RANGE:0.9 - 1.2 | | LAB | | | | NON-ANTICOAGULATED2.0 | | | | | | - 3.0 ALL OTHER | | | | | | THERAPEUTIC | | | | | | INDICATIONS2.5 - 3.5 | | | | | | MECHANICAL HEART VALVES, | | | | | | RECURRENT OR SYSTEMIC | | | | | | EMBOLISMTesting | | | | | | performed at [facility];[address] | | | | | | [address];[place] | | | | | | [address] | | | | + + + + + -+ | aPTT, | 21 (L)Comment: Testing | 23 - 32 seconds | EXTERNAL | | | Patient | performed at [facility];[address] | | LAB | | | | [address];[place] | | | | | | [address] | | | | + + + + + -+ | CK-MB | 1.1Comment: Testing | 0.5 - 3.6 ng/mL | EXTERNAL | | | | performed at [facility];[address] | | LAB | | | | [address];[place] | | | | | | [address] | | | | + + + + + -+ | CK-MB Index | 2.1Comment: CK INDEX | | EXTERNAL | | | | INTERPRETATION: | | LAB | | | | MMB ng/mL | | | | | | | | | | | |CK INDEX INTERPRETATION: | | | | | | MMB ng/mL | | | | | | | | | | + + + + + -+ + + | Specimen | + + | | + + + +---------+ + + | Performing | Address | City/State/Zipcode | Phone Number | | Organization | | | | + +---------+ + + | EXTERNAL LAB | | | | + +---------+ + + Troponin I (04/30/2014 11:34 AM PST) + + + + + + | Component | Value | Ref Range | Performed | Pathologist | | | | | At | Signature | + + + + + + | Troponin I, | <0.020Comment: 0.00 to | 0.00 - 0.10 | EXTERNAL | | | Qual | 0.10 CONSISTENT WITH | ng/mL | LAB | | | | NORMAL POPULATION0.11 | | | | | | to 0.60 CONSISTENT | | | | | | WITH INCREASED RISK FOR | | | | | | ADVERSE OUTCOMES> 0.60 | | | | | | CONSISTENT | | | | | | WITH WHO CRITERIA FOR | | | | | | ACUTE SC Testing | | | | | | performed at [facility];[address] | | | | | | [facility];[place], [place] | | | | | | [address] | | | | + + + + + + + + | Specimen | + + | Blood specimen | | (specimen) | + + + +---------+ + + | Performing | Address | City/State/Zipcode | Phone Number | | Organization | | | | + +---------+ + + | EXTERNAL LAB | | | | + +---------+ + + documented in this encounter Visit Diagnoses + + | Diagnosis | + + | Syncope, vasovagal Syncope and collapse | + + documented in this encounter
--- OUTSIDE RECORDS SUMMARY | ~2019-12-15 | XMS | Encounter Summary ---
Demographics + + + | Address | [address] | | | [place] [address] | + + + | Home Phone | | + + + | Preferred Language | Unknown | + + + | Marital Status | | + + + | Lutheran Affiliation | 1013 | + + + | Race | Unknown | + + + | Ethnic Group | Unknown | + + + Author + + + | Author | [facility] | | | and [place] | + + + | Organization | [facility] | | | [...] | | | | | [place] [address] | | + + + + + | Melissa Daley | ECON | [address] | | | | | [place] [address] | | + + + + + Care Team Providers + +------+ + | Care Cement Mason Apprentice Name | Role | Phone | + +------+ + | Jona Deal MD | PCP | | + +------+ + Encounter Details +--------+ + + + + | Date | Type | Department | Care Team | Description | +--------+ + + + + | // | Orders Only | [facility] | Marci Mcneal, | Nocturnal hypoxemia | | 2013 | | PULMONARY [address] | RN | | | | | [place], | | | | | | [place] [address] | | | | | | [phone] | | | +--------+ + + + [...] | | | | | [place] [address] | | | | | | [phone] | | | | | | | | +--------+---------+ + + + documented as of this encounter Visit Diagnoses + + | Diagnosis | + + | Nocturnal hypoxemia Hypoxemia | + + documented in this encounter"
--- OUTSIDE RECORDS SUMMARY | ~2019-12-15 | XMS | Encounter Summary ---
Demographics + + + | Address | [address] | | | [place] [address] | + + + | Home Phone [...] | | | | | [place] [address] | | + + + + + | Melissa Sheldon | ECON | [address] | | | | | [place] [address] | | + + + + + Care Team Providers + +------+ + | Care Public Health Dentist Name | Role | Phone | + [...] Description | +--------+---------+ + + + | 06/01/ | Office | [facility] | [place], | BOOP (bronchiolitis | | 2011 | Visit | PULMONARY [address] | Carmelita Penny MD | obliterans with | | | | [place], | | organizing | | | | [place] [address] | | pneumonia) ([facility]); | | | | [phone] | | Hypoxemia; Chronic | | | | | | rhinitis; | | | | | | 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[facility]) | +--------+---------+ + + + Social History [...] + + + | Blood Pressure | 120/70 | 06/01/2012 9:45 AM | | | | | PST | | + + + + + | Pulse | 68 | 06/01/2012 9:45 AM | | | | | PST | | + + + + + | Temperature | - | - | | + + + + + | Respiratory Rate | - | - | | + + + + + | Oxygen Saturation | 93% | 06/01/2012 9:45 AM | | | | | PST | | + + + + + | Inhaled Oxygen | - | - | | | Concentration | | | | + + + + + | Weight | 101.5 kg (223 lb | 06/01/2012 9:45 AM | | | | 11.2 oz) | PST | | + + + + + | Height | 175.3 cm (5' 9") | 06/01/2012 9:45 AM | | | | | PST | | + + + + + | Body Mass Index | 33.03 | 06/01/2012 9:45 AM | | | | | PST | | + + + + + documented in this encounter Patient Instructions Patient Instructions Carmelita Mckeon MD - 06/01/2012 10:43 AM PSTPlease make ling drapero w up with Dr. Deal regarding diabetes and having home health discontinued. documented in this encounter Progress Notes Carmelita Mckeon MD - 06/01/2012 10:20 AM PSTFormatting of this note might be differe nt from the original. Pulmonary Follow Up HPI Ron Sheldon is a 77 y.o. male patient of Jona Deal here today for follow u p of BOOP. He comes in today for post hospital follow up. He was recently hospitalized and diagnosed w ith BOOP, and responded well to steroids. He went home on oxygen, 2LPM with exertion and 2LP M at night. He is wearing the oxygen with exertion with longer walks, but not simple things like shaving, showering and getting to the breakfast table. He is wearing it reliably at [facility] [place]. He is coughing almost not at all, only a mild throat tickle. He has not coughed up any b lood. He has had some blood clots from his nose. He does feel like the shortness of breath i s getting better and better. He walked seven times around the house last night, which is 150 feet each time. The home health nurse has come twice. His blood sugars have been doing okay. He is running 110 first thing in the morning. At noon he is as high as 220, as well as in the evening. The y are covering him with sliding scale insulin, and he is taking medication as well. He does not have symptoms of heartburn or reflux. The nasal congestion is doing okay. He is using Flonase for the nasal congestion and this is helping. Past Medical History Past Medical History Diagnosis [...] Topics Smoking status: Never Smoker Smokeless tobacco: None Alcohol Use: No Drug Use: No Sexually Active: None Other Topics Concern None Social History Narrative None Allergies: Allergies Allergen Reactions Iodine IV Iodine Meperidine Morphine Medications: Outpatient Encounter Prescriptions as of 06/01/2012 Medication Sig Dispense Refill doxazosin (CARDURA) 4 mg tablet Take 4 mg by mouth 2 times daily. testosterone (ANDROGEL) 50 mg/5 g (1%) gel Inject 200 mg of testosterone into the muscl e Daily. Every three weeks. predniSONE (DELTASONE) 10 mg tablet Take 6 tablets by mouth Daily. metFORMIN (GLUCOPHAGE) 500 mg tablet Take 1 tablet by mouth daily (with breakfast). 30 tablet 0 atenolol (TENORMIN) 100 MG tablet Take 100 mg by mouth 2 times daily. albuterol-ipratropium (DUONEB) 2.5-0.5 mg/3 mL SOLN Take 3 mLs by nebulization. allopurinol (ZYLOPRIM) 100 mg tablet Take 100 mg by mouth 2 times daily. lisinopril (PRINIVIL, ZESTRIL) 10 mg tablet Take 10 mg by mouth Daily. omeprazole (PRILOSEC) 20 mg capsule Take 20 mg by mouth 2 times daily. atorvaSTATin (LIPITOR) 20 mg tablet Take 20 mg by mouth Daily. amLODIPine (NORVASC) 5 mg tablet Take 5 mg by mouth Daily. fluticasone (FLONASE) 50 mcg/nasal spray 2 sprays by Nasal route Daily. @ sprays in eac h nostril daily 16 g 12 acetaminophen (TYLENOL) 650 MG CR tablet Take 650 mg by mouth every 8 hours as needed. Insulin regular sliding scale docusate sodium (COLACE) 100 mg capsule Take 100 mg by mouth Twice daily as needed. Review of Systems Constitutional: Denies fever, chills, sweats. He has not gained weight since discharge. Sleep: He reports he is sleeping better at night. Eyes: Denies vision change and eye irritation. ENT: Denies earache, sore throat, and hoarseness. He has decreased hearing, no change. Resp: See HPI. CV: Denies chest pain, palpitations, syncope, and peripheral edema. GI: Denies nausea, vomiting, and abdominal pain. : Denies difficulty emptying bladder. Nocturia 2-3 times per night. Musculoskeletal: Chronic arthritis. Objective BP 120/70 | Pulse 68 | Ht 1.753 m (5' 9") | Wt 101.47 kg (223 lb 11.2 oz) | BMI 33.03 kg/m2 | SpO2 93% General Appearance: Alert, cooperative, no distress, appears stated age Head: Normocephalic, without obvious abnormality, atraumatic Eyes: PERRL, conjunctiva clear, no scleral icterus, EOM's intact Ears: Normal TM's and external auditory canals, significantly diminished acuity Nose: Nares normal, septum midline, mucosa edematous with turbinate hypertrophy Mouth: No oral lesions or exudate, large tongue, Mallampati 3-4 Neck: Supple, symmetrical, no adenopathy Lungs: No accessory muscle use, breath sounds are slightly diminished, no wheezes, crackl es or rhonchi Chest Wall: No deformity Heart: Regular rate and rhythm, no murmur, rub or gallop Abdomen: Soft, non-tender, non-distended, mildly obese Extremities: No cyanosis, clubbing, or edema Pulses: Radial pulses 2+ and symmetric Skin: Warm and dry Lymph nodes: Cervical and supraclavicular nodes normal Neurologic: Gait normal Data: No new data since hospitalization Assessment /Plan Mr. 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 I think at this point we will taper his steroids, dropping from 60 mg a day to 40 mg a day to day. I will leave him on 40 mg a day of prednisone until I see him at his next vis it in 2 weeks, and likely plan on continuing that for a total of 4 weeks before dropping him to 30 mg. We will check a chest x-ray today, and also ambulating oximetry. He would like to get off of exertional oxygen. We will also do an overnight oximetry, to evaluate to see if he is still desaturating at night, per [facility]'s request. - Pulse oximetry titration today - Overnight oximetry study on room air - XR Chest PA and Lateral today - predniSONE (DELTASONE) 40 mg Daily. Hypoxemia His hypoxemia has improved significantly especially when compared to a couple of weeks ago. We will repeat his ambulating oximetry, and then do nocturnal oximetry testing on room air to confirm that he does require nocturnal oxygen. If he does require nocturnal oxygen, we will repeat his study on 2 L per minute. In the hospital when he was spot checked at night he was satting approximately 90% on 2 L per minute. Chronic rhinitis He has had long-standing issues with chronic rhinitis, which has improved significantly on nasal Flonase. We did discharge him on this medication, and his symptoms continue to be imp roved. 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 I encouraged him to followup with his primary care lynda phoenix and remain on the metformin for now. They feel comfortable with the sliding scale t hat they are on. I am hopeful that with decreasing the prednisone dose, his blood sugars wi ll decrease. His did have some questions today about what optimal blood sugar control should be. I did do some education regarding that blood sugars in the 220 range were too hi gh, and while I did not know what the optimal control was considered currently, my feeling w as that ideally his blood sugar should likely be less than 120 in the fasting state. His me tformin prescription was refilled today as they only have several more days left on the pres cription. - metFORMIN (GLUCOPHAGE) 500 mg tablet; Take 1 tablet by mouth daily (with breakfast) . Return to clinic in 2 weeks. CC: Jona Deal documented in t his encounter Plan of Treatment +--------+---------+ + + + | Date | Type | Specialty | Care Team | Description | +--------+---------+ + + + | 01/12/ | Office | Neurology | Erica Nova | | | 2019 | Visit | | MD Sebastian [address] | | | | | | [place], [place] | | | | | | [place] [address] | | | | | | [phone] | | | | | | | | +--------+---------+ + + + + + +--------+ + + | Name | Type | Priori | Associated Diagnoses | Order Schedule | | | | ty | | | + + +--------+ + + | Pulse oximetry | Respiratory | Routin | BOOP | Expected: | | titation | Care | e | (bronchiolitis | 06/01/2012, Expires: | | | | | obliterans with | 06/01/2013 | | | | | organizing | | | | | | pneumonia) ([facility]) | | + + +--------+ + + | Pulse oximetry, | Respiratory | Routin | BOOP | Expected: | | overnight study | Care | e | (bronchiolitis | 06/03/2012, Expires: | | | | | obliterans with | 06/02/2013 | | | | | organizing | | | | | | pneumonia) ([facility]) | | + + +--------+ + + documented as of this encounter Results XR Chest PA and Lateral (06/01/2012 2:14 PM PST) + + | Specimen | + + | | + + + + + | Narrative | Performed At | + + + | [facility] | [place] | | Department [address] [facility] | [facility] | | [ rep [address]] [ rep ct [facility] | | st zip] Signed | - IMAGING | | | | | Patient Name: RON SHELDON V Physician: | | | CARLIEE. : 1935 Age: 77 Sex: M Unit #: [id number] | | | Exam Date: 06/01/12 Location: [facility] | | | Report #: [id number] Page: | | | %(RAD)RES..mtdd.print.filter("pg") of %(RAD) | | | RES..mtdd.print.filter("tpg") | | | | | | Accession Number: [id number] | | | CHEST PA AND LATERAL, 06/01/2012 CLINICAL HISTORY: | | | FOLLOW UP BOOP. COMPARISON: 05/23/2012 | | | FINDINGS: Frontal and lateral views of the chest. There has been | | | interval decrease in irregularly- shaped areas of parenchymal | | | consolidation in both lungs. A significant amount of residual | | | airspace disease remains. No new areas of involvement. No | | | pleural effusions. No pneumothorax. Cardiac contour is mildly | | | enlarged but stable. Osseous structures are grossly unchanged. | | | IMPRESSION: 1. SOME RADIOGRAPHIC IMPROVEMENT OF | | | BILATERAL AIRSPACE PROCESSES. Dictated Date/Time: | | | 06/01/2012 14:14 Transcribed Date/Time: 06/01/2012 15:42 | | | Body Trimmer: <<Signature on File>> | | | | | | Rakesh Guerrero MD06/01/122004 <Electronically signed by Rakesh Whitmore | | | Yolanda TERAN> Rakesh Guerrero MD 06/01/12 1414 | | | Body Trimmer: Cayetano [id number]/11/12 0810 | | | Carmelita Mckeon MD | | + + + + + + + + | Performing | Address | City/State/Zipcode | Phone Number | | Organization | | | | + + + + + | [facility] | [address] 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
--- OUTSIDE RECORDS SUMMARY | ~2019-12-15 | XMS | Encounter Summary ---
Demographics + + + | Address | [address] | | | [place] [address] | + + + | Home Phone | | + + + | Preferred Language | Unknown | + + + | Marital Status | | + + + | Christian Affiliation | 1013 | + + + | Race | Unknown | + + + | Ethnic Group | Unknown | + + + Author + + + | Author | [facility] | | | and [place] | + + + | Organization | [facility] | | | [...] | | | | | [place] [address] | | + + + + + | Melissa Daley | ECON | [address] | | | | | [place] [address] | | + + + + + Care Team Providers + +------+ + | Care Sports Equipment Repairer Name | Role | Phone | + +------+ + PCP | Unavailable | + +------+ + Encounter Details +--------+ + + + + | Date | Type | Department | Care Team | Description | +--------+ + + + + | 02/01/ | Hospital | [facility] | | | | 1991 | Encounter | MED CTR XRAY [address] | | | | | | [place] | | | | | | [place] [address] | | | | | | [phone] | | | +--------+ + + + [...] | | | | | [place] [address] | | | | | | [phone] | | | | | | | | +--------+---------+ + + + documented as of this encounter Visit Diagnoses Not on filedocumented in this encounter"
--- OUTSIDE RECORDS SUMMARY | ~2019-12-15 | XMS | Encounter Summary ---
Demographics + + + | Address | [address] | | | [place] [address] | + + + | Home Phone [...] + | Author | [facility] | | | and [place] | + + + | Organization | [facility] | | | and [...] | | | | | [place] [address] | | + + + + + | Melissa Sheldon | ECON | [address] | | | | | [place] [address] | | + + + + + Care Team Providers + +------+ + | Care Alining Inspector Name | Role | Phone | + +------+ + | Jona Deal MD | PCP | | + +------+ + Encounter Details +--------+ + + + + | Date | Type | Department | Care Team | Description | +--------+ + + + + | 06/23/ | Hospital | [facility] | [place], | BOOP (bronchiolitis | | 2012 - | Encounter | MED CTR XRAY [address] | Carmelita Penny MD | obliterans with | | | | [place] | | organizing | | 06/25/ | | [place] [address] | | pneumonia) (HCC) | | 2012 | | [phone] | | | +--------+ + + + [...] | | | | | | pneumonia) ([facility]) | | | | | | + [...] | | | | | | pneumonia) ([facility]) | | | | | | + [...] | | | | | [place] [address] | | | | | | [phone] | | | | | | | [...] Performed At | + + + | [facility] | PERRY | | Department [address] [facility] [place] | [facility] | | [ rep ct [address]] [ rep [facility] | | st zip] Signed | - IMAGING | | | | | Patient Name: RON SHELDON V Physician: | | | DOROTEO. : 1935 Age: 77 Sex: M Unit #: [id number] | | | Exam Date: 06/23/12 Location: [facility] | | | Report #: [id number] Page: | | | %(RAD)RES..mtdd.print.filter("pg") of %(RAD) | | | RES..mtdd.print.filter("tpg") | | | | | | Accession Number: [id number] | | | TWO-VIEW CHEST CLINICAL HISTORY: [...] Transcribed Date/Time: 06/23/2012 13:44 | | | Accountant Cost: <<Signature on File>> | | | | | | Tan Keenan MD06/23/12 0757 <Electronically signed by | | | Tan Keenan MD> Tan Keenan MD 06/23/12 | | | 3179 Accountant Cost: [employer] Spbgeebtsfcep45/02/13 6484 | | | Carmelita Mckeon MD | | + + + + + + + + | Performing | Address | City/State/Zipcode | Phone Number | | Organization | | | | + + + + + | [facility] | [address] 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
--- OUTSIDE RECORDS SUMMARY | ~2019-12-15 | XMS | Encounter Summary ---
Demographics + + + | Address | [address] | | | [place] [address] | + + + | Home Phone | | + + + | Preferred Language | Unknown | + + + | Marital Status | | + + + | Christianity Affiliation | 1013 | + + + [...] | | | | | [place] [address] | | + + + + + | Melissa Daley | ECON | [address] | | | | | [place] [address] | | + + + + + Care Team Providers + +------+ + | Care Shoe Stainer Name | Role | Phone | + [...] MD | Dx) | | | | [place], | | | | | | [place] [address] | | | | | | [phone] | | | +--------+ + + + [...] Description | +--------+---------+ + + + | 07/24/ | Office | Neurology | Erica Nova | | | 2020 | Visit | | MD Sebastian [address] | | | | | | [place] | | | | | | [place] [address] | | | | | | [phone] | | | | | | | [...]
--- OUTSIDE RECORDS SUMMARY | ~2019-12-15 | XMS | Encounter Summary ---
Demographics + + + | Address | [address] | | | [place] [address] | + + + | Home Phone [...] | | | | | [place] [address] | | + + + + + | Melissa Daley | ECON | [address] | | | | | [place] [address] | | + + + + + Care Team Providers + +------+ + | Care Poultry Field Service Technician Name | Role | Phone | [...] | RN | | | | | [place], | | | | | | [place] [address] | | | | | | [phone] | | | +--------+ + + + [...] | | | | | | [place], [place] [address] | | | | | | [phone] | | | | | | | | +--------+---------+ + + + documented as of this encounter Visit Diagnoses Not on filedocumented in this encounter"
--- OUTSIDE RECORDS SUMMARY | ~2019-12-15 | XMS | Encounter Summary ---
Demographics + + + | Address | [address] | | | [place] [address] | + + + | Home Phone [...] | | | | | [place] [address] | | + + + + + | Melissa Daley | ECON | [address] | | | | | [place] [address] | | + + + + + Care Team Providers + +------+ + | Care Structural Engineering Drafting Officer Name | Role | Phone | [...] | alveolar and | | | | [place], | | parietoalveolar | | | | [place] [address] | | pneumonopathies | | | | [phone] | | ([facility]); | | | | | | Bronchiectasis | | | | | | without acute | | | | | | exacerbation ([facility]); | | | | | | Hypoxemia [...] | 01/12/ | Office | Neurology | Rohini Erica | | | 2019 | Visit | | MD [address] | | | | | | [place] | | | | | | [place] [address] | | | | | | [phone] | | | | | | | [...]
--- OUTSIDE RECORDS SUMMARY | ~2019-12-15 | XMS | Encounter Summary ---
Demographics + + + | Address | [address] | | | [place] [address] | + + + | Home Phone [...] | | | | | [place] [address] | | + + + + + | Melissa Sheldon | ECON | [address] | | | | | [place] [address] | | + + + + + Care Team Providers + +------+ + | Care Hydrostatic Tester Name | Role | Phone | + +------+ + | Jona Deal MD | PCP | | + +------+ + Encounter Details +--------+ + + + + | Date | Type | Department | Care Team | Description | +--------+ + + + + | 07/26/ | Hospital | [facility] | [place], | BOOP (bronchiolitis | | 2014 | Encounter | MED CTR XRAY [address] | Carmelita Penny MD | obliterans with | | | | [place] | | organizing | | | | [place] [address] | | pneumonia) (HCC) | | | | [phone] | | | +--------+ + + + [...] + +---------+ + + | fluticasone | instill 2 sprays | 16 g | 12 | 06/29/19 | | | (FLONASE) 50 | into each nostril | | | 14 | 4 | | mcg/nasal spray | once daily | | | | | + [...] | | | | | [place] [address] | | | | | | [phone] | | | | | | | | +--------+---------+ + + + documented as of this encounter Procedures + +--------+ + + + | Procedure Name | Priori | Date/Time | Associated Diagnosis | Comments | | | ty | | | | + +--------+ + + + | XR CHEST PA AND | Routin | 07/26/2013 | BOOP | Results for this | | LATERAL | e | 2:32 PM | (bronchiolitis | procedure are in [...] At | + + + | [facility] | [place] | | Department [address] [place] [place] | [facility] | | [ rep ct [address]] [ rep ct [facility] | | st zip] Signed | - IMAGING | | | | | Patient Name: RON SHELDON Anabelle Physician: | | | CARMENE.01 : 1935 Age: 78 Sex: M Unit #: [id number] | | | Exam Date: 07/26/13 Location: [facility] | | | Report #: [id number] Page: | | | %(RAD)RES..mtdd.print.filter("pg") of %(RAD) | | | RES..mtdd.print.filter("tpg") | | | | | | Accession Number: [id number] | | | CHEST, PA AND LATERAL, [...] Transcribed Date/Time: 07/26/2013 16:02 | | | Enterostomal Nurse: <<Signature on File>> | | | | | | Kiko Hair MD07/26/13 1931 <Electronically signed by Kiko | | | Melina Hair MD> Kiko Hair MD 07/26/13 1432 | | | Enterostomal Nurse: RunTitle [id number]/04/14 1602 | | | Carmelita Mckeon MD | | + + + + + + + + | Performing | Address | City/State/Zipcode | Phone Number | | Organization | | | | + + + + + | [facility] | [address] 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
--- OUTSIDE RECORDS SUMMARY | ~2019-12-15 | XMS | Encounter Summary ---
Demographics + + + | Address | [address] | | | [place] [address] | + + + | Home Phone | | + + + | Preferred Language | Unknown | + + + | Marital Status | | + + + | Baptism Affiliation | 1013 | + + + | Race | Unknown | + + + | Ethnic Group | Unknown | + + + Author + + + | Author | [facility] | | | and [place] | + + + | Organization | [facility] | | [...] | | | | | [place] [address] | | + + + + + | Melissa Daley | ECON | [address] | | | | | [place] [address] | | + + + + + Care Team Providers + +------+ + | Care Can Maker Name | Role | Phone | + [...] | | | | unspecified | Elvi Berg | [place], | | | | | ([facility]) | [place], | [place] [address] | | | | | Procedures | [place] | Phone: | | | | | [place] OFFICE | [address] | [phone] | | | | | OUTPATIENT | Phone: | Fax: | | | | | NEW 45 | [phone] | [phone] | | | | | MINUTES TRAFFIC INSPECTOR | Fax: | | | | | | | [phone] | | +--------+--------+ + + + + Encounter Details +--------+---------+ + + + | Date | Type | Department | Care Team | Description | +--------+---------+ + + + | 06/08/ | Office | [facility] | Alex Nam | 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 Nahun vang in [place], [place]. Reports he did his total knees. [...] and numbness in his toes. CARDIAC: Denies [place], chest pain or tightness. RISK: Never smoker, Denies diabetes. Father had [place] SANDRA Score: 5 SANDRA Risk Score 06/08/2017 Risk for Obstructive Sleep Apnea Suspected Risk for SANDRA RECENT TEST RESULTS and IMAGING: [facility] facility practice specialist. RIGHT: 1.12 LEFT 1.19 NOTES: Bilateral [...] intact, face symmetric, tongue protrudes midline Equal hair baler and plantar flexion, no pronator drift, Gait [...] | | | | | [place] [address] | | | | | | [phone] | | | | | | | [...]
--- OUTSIDE RECORDS SUMMARY | ~2019-12-15 | XMS | Encounter Summary ---
Demographics + + + | Address | [address] | | | [place] [address] | + + + | Home Phone | | + + + | Preferred Language | Unknown | + + + | Marital Status | | + + + | Hoahaoism Affiliation | 1013 | + + + | Race | Unknown | + + + | Ethnic Group | Unknown | + + + Author + + + | Author | [facility] | | | and [place] | + + + | Organization | [facility] | | [...] | | | | | [place] [address] | | + + + + + | Melissa Daley | ECON | [address] | | | | | [place] [address] | | + + + + + Care Team Providers + +------+ + | Care Company Laborer Name | Role | Phone | + [...] | obliterans with | | | | [place], | | organizing | | | | [place] [address] | | pneumonia) ([facility]) | | | | [phone] | | (Primary Dx); Other | | | | | | 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 | | | | | | ([facility]) | +--------+ + + + [...] | | | | | [place] [address] | | | | | | [phone] | | | | | | | [...] | | | | | | pneumonia) ([facility]) | | + + +--------+ [...]
--- OUTSIDE RECORDS SUMMARY | ~2019-12-15 | XMS | Encounter Summary ---
Demographics + + + | Address | [address] | | | [place] [address] | + + + | Home Phone | | + + + | Preferred Language | Unknown | + + + | Marital Status | | + + + | Oriental Orthodox Affiliation | 1013 | + + + [...] | | | | | [place] [address] | | + + + + + | Melissa Daley | ECON | [address] | | | | | [place] [address] | | + + + + + Care Team Providers + +------+ + | Care Road Hogger Operator Name | Role | Phone | + +------+ + PCP | Unavailable | + +------+ + Encounter Details +--------+ + + + + | Date | Type | Department | Care Team | Description | +--------+ + + + + | 10/10/ | Hospital | [facility] | Rakesh Ruiz MD | | | 2008 | Encounter | MED CTR GENERIC OP | [address], [place] | | | | | CONV DEPT [address] | [address] [place], [place] | | | | | [place], | [address] | | | | | [place] [address] | | | | | | [phone] | | | +--------+ + + + [...] | | | | | [place] [address] | | | | | | [phone] | | | | | | | | +--------+---------+ + + + documented as of this encounter Visit Diagnoses Not on filedocumented in this encounter"
--- OUTSIDE RECORDS SUMMARY | ~2019-12-15 | XMS | Encounter Summary ---
Demographics + + + | Address | [address] | | | [place] [address] | + + + | Home Phone [...] | | | | | [place] [address] | | + + + + + | Melissa Daley | ECON | [address] | | | | | [place] [address] | | + + + + + Care Team Providers + +------+ + | Care Product Marketing Programs Manager Name | Role | Phone | + +------+ + | Jona Deal MD | PCP | | + +------+ + Encounter Details +--------+ + + + + | Date | Type | Department | Care Team | Description | +--------+ + + + + | 05/22/ | Abstract | [facility] | Alex Nam | Peripheral vascular | | 2017 | | SURGERY [address] | MD Malaika, FACS [address] | disease (HCC); | | | | [address] [place], [place] | [address] | Prostatic | | | | [address] | [place] [address] | hyperplasia, benign | | | | [phone] | [phone] | localized, with | | | | [...] and Digit waveform s on 05/05/2017 at [facility] affirmative action specialist. NOTES: Bilateral waveforms and numeric values [...] | | | | | [place] [address] | | | | | | [phone] | | | | | | | [...]
--- OUTSIDE RECORDS SUMMARY | ~2019-12-15 | XMS | Encounter Summary ---
Demographics + + + | Address | [address] | | | [place] [address] | + + + | Home Phone | | + + + | Preferred Language | Unknown | + + + | Marital Status | | + + + | Taoism Affiliation | 1013 | + + + | Race | Unknown | + + + | Ethnic Group | Unknown | + + + Author + + + | Author | [facility] | | | and [place] | + + + | Organization | [facility] | | | [...] | | | | | [place] [address] | | + + + + + | Melissa Daley | ECON | [address] | | | | | [place] [address] | | + + + + + Care Team Providers + +------+ + | Care Meter Shop Superintendent Name | Role | Phone | + [...] | [address], | [place] [address] | | | | | [place] [address] | [phone] | | | | | [phone] | | | +--------+ + + + [...] | | | | | [place] [address] | | | | | | [phone] | | | | | | | | +--------+---------+ + + + documented as of this encounter Visit Diagnoses Not on filedocumented in this encounter"
--- OUTSIDE RECORDS SUMMARY | ~2019-12-15 | XMS | Encounter Summary ---
Demographics + + + | Address | [address] | | | [place] [address] | + + + | Home Phone | | + + + | Preferred Language | Unknown | + + + | Marital Status | | + + + | Religion Affiliation | 1013 | + + + | Race | Unknown | + + + | Ethnic Group | Unknown | + + + Author + + + | Author | [facility] | | | and [place] | + + + | Organization | [facility] | | | [...] | | | | | [place] [address] | | + + + + + | Melissa Daley | ECON | [address] | | | | | [place] [address] | | + + + + + Care Team Providers + +------+ + | Care Cocktail Server Name | Role | Phone | + +------+ + PCP | Unavailable | + +------+ + Encounter Details +--------+ + + + + | Date | Type | Department | Care Team | Description | +--------+ + + + + | 05/27/ | Hospital | [facility] | | | | 2000 | Encounter | MED CTR GENERIC OP | | | | | | CONV DEPT [address] | | | | | | [place], | | | | | | [place] [address] | | | | | | [phone] | | | +--------+ + + + [...] | | | | | [place] [address] | | | | | | [phone] | | | | | | | | +--------+---------+ + + + documented as of this encounter Visit Diagnoses Not on filedocumented in this encounter"
--- OUTSIDE RECORDS SUMMARY | ~2019-12-15 | XMS | Encounter Summary ---
Demographics + + + | Address | [address] | | | [place] [address] | + + + | Home Phone | | + + + | Preferred Language | Unknown | + + + | Marital Status | | + + + | Bahai Affiliation | 1013 | + + + | Race | Unknown | + + + | Ethnic Group | Unknown | + + + Author + + + | Author | [facility] | | | and [place] | + + + | Organization | [facility] | | [...] | | | | | [place] [address] | | + + + + + | Melissa Daley | ECON | [address] | | | | | [place] [address] | | + + + + + Care Team Providers + +------+ + | Care Estimator Project Manager Name | Role | Phone | + +------+ + | Jona Deal MD | PCP | | + +------+ + Encounter Details +--------+ + + + + | Date | Type | Department | Care Team | Description | +--------+ + + + + | 01/12/ | Hospital | [facility] | [place], | DM type 2 (diabetes | | 2014 | Encounter | MED CTR LABORATORY | Carmelita Penny MD | mellitus, type 2) | | | | [address] | | ([facility]) | | | | [place] | | | | | | [address] | | | | | | [phone] | | | +--------+ + + + [...] | | | | | [place] [address] | | | | | | [phone] | | | | | | | [...] | | | PDT | type 2) ([facility]) | results section. | + +--------+ + [...] | | | A1c | | | [facility] | | [...] + | [facility] | [address] | [place] | [phone] | | [facility] | | [address] | | | - LABORATORY | | | | + + + + + | [facility] | [address] | [place] | | | [facility] | | [address], [place] | | | - LABORATORY | | | | + + + + + documented in this encounter Visit Diagnoses + + | Diagnosis | + + | DM type 2 (diabetes mellitus, type 2) ([facility]) Type II or unspecified type diabetes | | mellitus without mention of complication, not stated as uncontrolled | + + documented in this encounter"
--- OUTSIDE RECORDS SUMMARY | ~2019-12-15 | XMS | Encounter Summary ---
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 100 each 3 DISCONTD: predniSONE [...] | | | | | | [place] [address] | | | | | | [phone] | | | | | | | | +--------+---------+ + + + documented as of this encounter Results XR Chest PA and Lateral (08/16/2012 11:14 AM PST) + + | Specimen | + + | | + + + + + | Narrative | Performed At | + + + | [facility] | [place] | | Department [address] [facility] | [facility] | | [ rep [address]] [ rep [facility] | | st zip] Signed | - IMAGING | | | | | Patient Name: RON SHELDON V Physician: | | | : 1935 Age: 77 Sex: M Unit #: [id number] | | | Exam Date: 08/16/12 Location: [facility] | | | Report #: [id number] Page: | | | %(RAD)RES..mtdd.print.filter("pg") of %(RAD) | | | RES..mtdd.print.filter("tpg") | | | | | | Accession Number: [id number] | | | CHEST X-RAY CLINICAL HISTORY: [...] Transcribed Date/Time: | | | 08/16/2012 11:23 Typer: | | | <<Signature on File>> | | | Mart | | | MD [place]08/16/12 1439 <Electronically signed by Mart Boyle MD> | | | Mart Boyle MD 08/16/12 1114 Typer: [place] | | | Zydtrqryiojyn64/25/13 1123 Carmelita Mckeon MD | | | | | + + + + + + + + | Performing | Address | City/State/Zipcode | Phone Number | | Organization | | | | + + + + + | [facility] | [address] | [place], [place] | [phone] | | [facility] | | [address] | | | - IMAGING | | [...]
--- OUTSIDE RECORDS SUMMARY | ~2019-12-15 | XMS | Encounter Summary ---
Demographics + + + | Address | [address] | | | [place] [address] | + + + | Home Phone [...] | | | | | [place] [address] | | + + + + + | Melissa Sheldon | ECON | [address] | | | | | [place] [address] | | + + + + + Care Team Providers + +------+ + | Care Dairy Husbandry Teacher Name | Role | Phone | + +------+ + | Unknown, Doctor | PCP | | + +------+ + Encounter Details +--------+ + + + + | Date | Type | Department | Care Team | Description | +--------+ + + + + | 05/17/ | Hospital | [facility] | Felice Ford, | | | 2011 - | Encounter | [facility] | [address] | | | | | [address] [place] | [place], [place] | | | 05/24/ | | [place] [address] | [address] | | | 2011 | | [phone] | [phone] | | | | | | | | | | | | Mali Foreman MD | | | | | | [address] | | | | | | [place] | | | | | | [address] | | | | | | | [...] Mali Foreman MD - 05/24/2012 10:32 [place] [address] Patient Name: RON SHELDON V Provider: Felice Ford MD Unit #: [id number] Location: [address] [place] [address] #: [id number] : 1935 ADMISSION DATE: 05/17/2012 DISCHARGE DATE: 05/24/2012 DISCHARGE CONDITION: Good. DISCHARGE DIAGNOSES 1. ACUTE RESPIRATORY FAILURE. 2. BRONCHIOLITIS OBLITERANS-ORGANIZING PNEUMONIA. 3. RESPIRATORY CULTURE POSITIVE FOR KARLY AND SENSITIVE STAPHYLOCOCCUS. 4. HYPERTENSION. 5. DYSLIPIDEMIA. 6. OSTEOARTHRITIS. 7. HISTORY OF COLON POLYPS. 8. GASTROESOPHAGEAL REFLUX DISEASE. 9. RENAL CALCULI. 10. STATUS POST APPENDECTOMY. 11. CHOLECYSTECTOMY. 12. RIGHT ANKLE FUSION. 13. RIGHT SHOULDER SURGERY. 14. THREE BACK SURGERIES. 15. BILATERAL KNEE REPLACEMENT. HOSPITAL COURSE: The patient was admitted on transfer from [facility] in [place], [place] , after being admitted 05/13/2012. He required up to 10 liters of oxygen and h ad a significant cough. As there was no pulmonary consultation available, he was transferre d to [facility]. The patient was started on IV methylprednisolone 8 0 mg t.i.d., but due to hyperglycemia, this apparently was discontinued. Sputum culture gre w staph feces, which appeared to be sensitive. Additional respiratory culture here at [facility] grew Karly. The patient was empirically covered with Levaquin, [...] is re commended by Dr. Mckeon, his fundraising consultant, that he have a sleep study [...] Mali Foreman MD Internal Medicine JOB #: [id number] EXT JOB #:[id number] cc: MD Jona Gregorio MD Benjamin Leach, [...] Felice Ford MD - 05/17/2012 8:00 [place] [address] Patient Name: RON SHELDON V Provider: Felice Ford MD Unit #: [id number] Location: [address] [place] [address] #: [id number] : 1935 DATE: 05/17/2012 CHIEF COMPLAINT: Cough, [...] has had in the past was what aure lindo describes as a "walking pneumonia" in [...] about 20 feet. He was admitted to [facility] on 05/13/2012. An xray showed multifocal consolidations. [...] up to 10 liters of oxygen at [facility] and because a backshoe person was not available, he was transferred to [facility] for further workup. He did have a [...] HISTORY: He lives on a ranch outside [place]. 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 He denies any history of ever smoking. Aure lindo has never used alcohol. He states [...] and well perfused. LABORATORY DATA: Chem-7 from [facility] this AM shows sodium 135, potassium 4, [...] initial sputum culture, negative bacterial culture at [facility]. It does seem to be a subacute [...] BY: Felice Ford MD Hospitalist JOB #: [id number] EXT JOB #:[id number] cc: Carmelita Mckeon MD <<Signature on File>> Dat Jarvis D107/18/11 0123 < documented in thi s encounter Consult Notes Carmelita Mckeon MD - 05/18/2012 3:19 PM PST [place], [place] [address] Patient Name: RON SHELDON V Provider: Felice Ford MD Unit #: [id number] Location: [address] [place], [place] [address] #: [id number] : 1935 DATE: 05/18/2012 CONSULTING PHYSICIAN: Carmelita [...] [facility] in [place], [place] on 05/13/2012, with cough, hemoptysis, and [...] any unusual travel. He did have a libertarian back in January where he was i n contact with a number of people to celebrate his mcc from farming as well as his anniversary. He notes that at baseline he goes to mosque every Thursday and at [facility] he is exposed to a large [...] He went to a care clinic in [place] on Thursday05/03/2012 and wa s treated with [...] not have the notes available [facility]. Three days later on , which is now 05/13/2012, he had continu ed to have worsening shortness of breath, increasing hemoptysis with now fresh blood mixed in with his sputum and was now turning blue with exertion. This prompted him to go to the e mergency room at [facility]. He notes that the color of [...] was poor. Chest x-ray on presentation to [facility] showed multifocal consolidations and ground- glass [...] and sputum cultures sent on presentation to [facility] and his sputum culture is gr [...] transfer arrangements were made to transfer to [facility]. On the morning as his transfer he [...] He lives on a ranch outside of [place] with his of 60 years. There are [...] g use. 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 He has previously been exposed to to [facility] chemicals, namely herbicides, and also extensively to [...] had had high blood mccollum gars in [place]. He denies any history of thyroid disease. [...] negative. Influenza A and B swab from [facility] was also negative. BNP on arrival to [facility] w as 349 and decreased to [...] 05/17/2012 . His chest x-ray from the [facility] on 05/10/2012, already shows patchy [...] with steroids for about 24 hours at [facility] a nd had clinical worsening of [...] going to request the culture data from [facility] to see if they have further speciated [...] Carmelita Mckeon MD Pulmonary Medicine JOB #: [id number] EXT JOB #:[id number] cc: MD Felice Worthy MD <<Signature on [...] | | | | | [place] [address] | | | | | | [phone] | | | | | | | [...] | | | DIFFERENTIA | | | [facility] | | | L ? | [...] + | [facility] | [address] | [place] | [phone] | | [facility] | | [address] | | | - LABORATORY | | | | + + + + + | [facility] | [address] | [place], [place] | | | [facility] | | [address], [facility] | | | - [...] | | | | | mg/dL | [facility] | | | | [...] [address] | [place] | [phone] | | [facility] | | [address] | | | - LABORATORY | | | | + + + + + | [facility] | [address] | [place] | | | [facility] | | [address], [facility] | | | - LABORATORY | | | | + + + + + XR Chest AP Portable (05/23/2012 12:43 PM PST) + + | Specimen | + + | | + + + + + | Narrative | Performed At | + + + | [facility] Diagnostic Imaging | [place] | | Department [address], [place] | [facility] | | [ rep ct street1+2] [ rep [facility] | | st zip] Signed | - IMAGING | | | | | Patient Name: RON SHELDON V Physician: | | | VAN. : 1935 Age: 77 Sex: M Unit #: [id number] | | | Exam Date: 05/23/12 Location: [address] [place] [address] | | | Report #: [id number] Page: | | | %(RAD)RES..mtdd.print.filter("pg") of %(RAD) | | | RES..mtdd.print.filter("tpg") | | | | | | Accession Number: [id number] | | | PORTABLE CHEST, 05/23/2012 CLINICAL [...] | | | Transcribed Date/Time: 05/23/2012 14:11 Inspector Heating And Refrigeration: | | | MR.SC <<Signature on File>> | | | Rakesh | | | Myranda Guerrero MD05/23/12 1725 <Electronically signed by Rakesh Whitmore | Sowmya Guerrero MD> Rakesh Guerrero MD 05/23/12 1243 | | | Inspector Heating And Refrigeration: [employer] Yljujgzpqmohf48/02/12 1411 | | | | | + + + + + + + + | Performing | Address | City/State/Zipcode | Phone Number | | Organization | | | | + + + + + | [facility] | [address] | [place] | [phone] | | [facility] | | [address] | | | - IMAGING | | [...] + | [facility] | [address] | [place] | [phone] | | [facility] | | [address] | | | - LABORATORY | | | | + + + + + | [facility] | [address] | [place] | | | [facility] | | [address] | | | - [...] [address] | [place] | [phone] | | [facility] | | [address] | | | - LABORATORY | | | | + + + + + | [facility] | [address] | [place] | | | [facility] | | [address] | | | - LABORATORY | [...] (H) | 7 - 18 mg/dL | [facility] | | | | | | [facility] | | | | | | MEDICAL | | | | | | CENTER - | | | | | | LABORATORY | | + + + + + + | Creatinine | 0.95 | 0.60 - 1.30 | [facility] | | | | | mg/dL | [...] + | [facility] | [address] | [place], [place] | [phone] | | [facility] | | [address] | | | - LABORATORY | | | | + + + + + | [facility] | [address] | [place], [place] | | | [facility] | | [address], [facility] | | | - LABORATORY | | | | + + + + + XR Chest AP Portable (05/22/2012 10:52 AM PST) + + | Specimen | + + | | + + + + + | Narrative | Performed At | + + + | [facility] Diagnostic [facility] | [place] | | Department [address] [place] [address] | [facility] | | [ rep ct street1+2] [ rep ct [facility] | | [facility] Signed | - IMAGING | | | | | Patient Name: RON SHELDON V Physician: | | | OFFMelina. : 1935 Age: 77 Sex: M Unit #: [id number] | | | Exam Date: 05/22/12 Location: [address] [place] [address] | | | Report #: [id number] Page: | | | %(RAD)RES..mtdd.print.filter("pg") of %(RAD) | | | RES..mtdd.print.filter("tpg") | | | | | | Accession Number: [id number] | | | PORTABLE CHEST, 05/22/2012 CLINICAL [...] Transcribed Date/Time: | | | 05/22/2012 11:53 Inspector Heating And Refrigeration: | | | <<Signature on File>> | | | Rakesh | | | Myranda Guerrero MD05/22/121943 <Electronically signed by Rakesh Whitmore | | | Yolanda TERAN> Rakesh Guerrero MD 05/22/12 1052 | | | Inspector Heating And Refrigeration: [employer] [id number]/01/12 1153 | | | Carmelita Mckeon MD | | + + + + + + + + | Performing | Address | City/State/Zipcode | Phone Number | | Organization | | | | + + + + + | [facility] | [address] | [place] | [phone] | | [facility] | | [address] | | | - IMAGING | | [...] | | | | | M/uL | [facility] | | | | [...] | | Neutrophils | | | [facility] | | | | | | MEDICAL | | | | | | CENTER - | | | | | | LABORATORY | | + + + + + + | % | 3.8 (L) | 20 - 45 % | [facility] | | | Lymphocytes | | | [facility] | | [...] + | [facility] | [address] | [place], [place] | [phone] | | [facility] | | [address] | | | - LABORATORY | | | | + + + + + | [facility] | [address] | [place], [place] | | | [facility] | | [id number] [place] [address] | | | - LABORATORY | | [...] | 0.92 | 0.60 - 1.30 | [facility] | | | | | mg/dL | [facility] | | | | | | MEDICAL | | | | | | CENTER - | | | | | | LABORATORY | | + + + + + + | Estimated | >60Comment: For | >60 mL/min/A | [facility] | | | GFR | -Americans, | [...] 26.1 (H) | 12 - 20 | [place] | [...] + | [facility] | [address] | [place], [place] | [phone] | | [facility] | | [address] | | | - LABORATORY | | | | + + + + + | [facility] | [address] | [place], [place] | | | [facility] | | [address] | | | - LABORATORY | [...] + | [facility] | [address] | [place], [place] | [phone] | | [facility] | | [address] | | | - LABORATORY | | | | + + + + + | [facility] | [address] | [place], [place] | | | [facility] | | [address] [place] [address] | | | - LABORATORY | | [...] | performed on the Nate | | [facility] | | | | [facility] | | MEDICAL | | | [...] + | [facility] | [address] | [place] | [phone] | | [facility] | | [address] | | | - LABORATORY | | | | + + + + + | [facility] | [address] | [place] | | | [facility] | | [address] | | | - LABORATORY | [...] (L) | 3.2 - 5.0 gm/dL | [facility] | | | | | | ST[facility]yler [...] + | [facility] | [address] | [place] | [phone] | | [facility] | | [address] | | | - LABORATORY | | | | + + + + + | [facility] | [address] | [place] | | | [facility] | | [address], [facility] | | | - [...] (H) | 7 - 18 mg/dL | [facility] | | | | [...] | >60Comment: For | >60 mL/min/A | [facility] | | | GFR | -Americans, | [...] + | [facility] | [address] | [place], [place] | [phone] | | [facility] | | [address] | | | - LABORATORY | | | | + + + + + | [facility] | [address] | [place], [place] | | | [facility] | | [id number] [place] [address] | | | - LABORATORY | | [...] + | [facility] | [address] | [place] | [phone] | | [facility] | | [address] | | | - LABORATORY | | | | + + + + + | [facility] | [address] | [place], [place] | | | [facility] | | [address] | | | - LABORATORY | | | | + + + + + XR Chest AP Portable (05/20/2012 10:12 AM PST) + + | Specimen | + + | | + + + + + | Narrative | Performed At | + + + | [facility] | [place] | | Department [address] [facility], [place] | [facility] | | [ rep ct street1+2] [ rep [facility] | | st zip] Signed | - IMAGING | | | | | Patient Name: RON SHELDON V Physician: | | | E. : 1935 Age: 77 Sex: M Unit #: [id number] | | | Exam Date: 05/20/12 Location: [address] [place] [address] | | | Report #: [id number] Page: | | | %(RAD)RES..mtdd.print.filter("pg") of %(RAD) | | | RES..mtdd.print.filter("tpg") | | | | | | Accession Number: [id number] | | | PORTABLE CHEST X-RAY CLINICAL [...] Transcribed | | | Date/Time: 05/20/2012 10:16 Inspector Heating And Refrigeration: | | | <<Signature on File>> | | | Kiko | | | Melina Hair MD05/20/12 1038 <Electronically signed by Kiko Lindo | | | Laxmi TERAN> Kiko Hair MD 05/20/12 1012 | | | Inspector Heating And Refrigeration: Cayetano Iwmszcucbypmb62/29/12 1016 | | | Carmelita Mckeon MD | | + + + + + + + + | Performing | Address | City/State/Zipcode | Phone Number | | Organization | | | | + + + + + | [facility] | [address] | [place] | [phone] | | [facility] | | [address] | | | - IMAGING | | [...] | Sample Type | | | [facility] | | | | | | MEDICAL | | | | | | CENTER - | | | | | | LABORATORY | | + + + + + + | Blood Gas | 1LR0 | | [facility] | | | Sample Site | | | [facility] | | [...] | | Oxygen | | | [facility] | | | | | | MEDICAL | | | | | | CENTER - | | | | | | LABORATORY | | + + + + + + | L/min of O2 | 15 | | [facility] | | | | | | [facility] | | | | | | [...] + | [facility] | [address] | [place], [place] | [phone] | | [facility] | | [address] | | | - LABORATORY | | | | + + + + + | [facility] | [address] | [place], [place] | | | [facility] | | [address] | | | - LABORATORY | [...] | | | | | g/dL | [facility] | | | | [...] | | Monocytes | | | [facility] | | [...] [address] | [place] | [phone] | | [facility] | | [address] | | | - LABORATORY | | | | + + + + + | [facility] | [address] | [place] | | | [facility] | | [address] | | | - LABORATORY | [...] 4.1 | 3.5 - 5.1 mEq/l | [facility] | | | | | | ST. [...] + | [facility] | [address] | [place] | [phone] | | [facility] | | [address] | | | - LABORATORY | | | | + + + + + | [facility] | [address] | [place] | | | [facility] | | [address] | | | - [...] + | [facility] | [address] | [place] | [phone] | | [facility] | | [address] | | | - LABORATORY | | | | + + + + + | [facility] | [address] | [place] | | | [facility] | | [address] | | | - LABORATORY | | | | + + + + + CBC with Differential (05/19/2012 5:25 AM PST) + + + + + + | Component | Value | Ref Range | Performed | Pathologist | | | | | At | Signature | + + + + + + | MANUAL | NO | | [facility] | | | DIFFERENTIA | | | BRYN | | | L ? | [...] | | | | | g/dL | [facility] | | | | [...] | | Neutrophils | | | [facility] | | [...] + | [facility] | [address] | [place], [place] | [phone] | | [facility] | | [address] | | | - LABORATORY | | | | + + + + + | [facility] | [address] | [place], [place] | | | [facility] | | [address], [facility] | | | - [...] | >60Comment: For | >60 mL/min/A | [facility] | | | GFR | -Americans, | [...] + | [facility] | [address] | [place] | [phone] | | [facility] | | [address] | | | - LABORATORY | | | | + + + + + | [facility] | [address] | [place], [place] | | | [facility] | | [address] | | | - LABORATORY | | | | + + + + + Quantiferon Gold (05/18/2012 2:48 PM PST) + + + [...] | | | | | | by: [facility] | | | | | | Laboratory, [address] | | | | | | [address], | | | | | | [place] [address] | | | | + + + + + + + + | Specimen | + + | | + + + + + + + | Performing | Address | City/State/Zipcode | Phone Number | | Organization | | | | + + + + + | [facility] | [address] | [place] | [phone] | | [facility] | | [address] | | | - LABORATORY | | | | + + + + + | [facility] | [address] | [place] | | | [facility] | | [id number] [place] [address] | | | - LABORATORY | | [...] | | | | | | Performed: [facility] | | | | | | Diagnostics, [address] | | | | | | [facility], | | | | | | [place] [address] | | | | | | CLIA: [id number] | | | | + + + + + + + + | Specimen | + + | | + + + + + + + | Performing | Address | City/State/Zipcode | Phone Number | | Organization | | | | + + + + + | [facility] | [address] | [place] | [phone] | | [facility] | | [address] | | | - LABORATORY | | | | + + + + + | [facility] | [address] | [place] | | | [facility] | | [address] | | | - LABORATORY | | | | + + + + + XR Chest AP Portable (05/18/2012 8:55 AM PST) + + | Specimen | + + | | + + + + + | Narrative | Performed At | + + + | [facility] | [place] | | Department [address], [place] | [facility] | | [ rep ct street1+2] [ rep ct [facility] | | st zip] Signed | - IMAGING | | | | | Patient Name: RON SHELDON V Physician: | | | [id number] : 1935 Age: 77 Sex: M Unit #: [id number] | | | Exam Date: 05/17/12 Location: [address] [place] [address] | | | Report #: [id number] Page: | | | %(RAD)RES..mtdd.print.filter("pg") of %(RAD) | | | RES..mtdd.print.filter("tpg") | | | | | | Accession Number: [id number] | | | PORTABLE CHEST CLINICAL HISTORY: [...] Transcribed Date/Time: | | | 05/18/2012 08:58 Inspector Heating And Refrigeration: RUPERT | | | <<Signature on File>> | | | | | | Tan Keenan MD05/18/12 1402 <Electronically signed by | | | Tan Keenan MD> Tan Keenan MD 05/18/12 | | | 0855 Inspector Heating And Refrigeration: [employer] [id number]/27/12 0858 | | | | | + + + + + + + + | Performing | Address | City/State/Zipcode | Phone Number | | Organization | | | | + + + + + | [facility] | [address] | [place] | [phone] | | [facility] | | [address] | | | - IMAGING | | [...] + | [facility] | [address] | [place] | [phone] | | [facility] | | [address] | | | - LABORATORY | | | | + + + + + | [facility] | [address] | [place], [place] | | | [facility] | | [address], [facility] | | | - [...] | performed on the Nate | | [facility] | | | | [facility] | | MEDICAL | | | [...] + | [facility] | [address] | [place] | [phone] | | [facility] | | [address] | | | - LABORATORY | | | | + + + + + | [facility] | [address] | [place] | | | [facility] | | [address] | | | - [...] | | | DIFFERENTIA | | | [facility] | | | L ? | [...] + | [facility] | [address] | [place], [place] | [phone] | | [facility] | | [address] | | | - LABORATORY | | | | + + + + + | [facility] | [address] | [place], [place] | | | [facility] | | [address] [place] [address] | | | - LABORATORY | | [...] | CENTER - | | | | [address] CLIA: [id number] | | LABORATORY | | | | | | | | + + + + + + + + | Specimen | + + | | + + + + + + + | Performing | Address | City/State/Zipcode | Phone Number | | Organization | | | | + + + + + | [facility] | [address] | [place] | [phone] | | [facility] | | [address] | | | - LABORATORY | | | | + + + + + | [facility] | [address] | [place], [place] | | | [facility] | | [address] | | | - LABORATORY | | | | + + + + + SEMAJ Anais, Loreto, Reflex (05/18/2012 4:39 AM PST) + + [...] CENTER - | | | | Chromatin, KELP OR SEAGRASS GATHERER, Sm KELP OR SEAGRASS GATHERER, | | LABORATORY | | | | [...] | | | | | [address], [place] | | | | | | [address] CLIA: [id number] | | | | | | | | | | + + + + + + + + | Specimen | + + | | + + + + + + + | Performing | Address | City/State/Zipcode | Phone Number | | Organization | | | | + + + + + | [facility] | [address] | [place] | [phone] | | [facility] | | [address] | | | - LABORATORY | | | | + + + + + | [facility] | [address] | [place], [place] | | | [facility] | | [address] | | | - LABORATORY | | | | + + + + + TSH (05/18/2012 4:39 AM PST) + + + + + + | Component | Value | Ref Range | Performed | Pathologist | | | | | At | Signature | + + + + + + | TSH | 1.10Comment: Testing | 0.34 - 5.60 | [facility] | | | | performed on the Nate | uIU/mL | [facility] | | | | [facility] | | MEDICAL | | | [...] + | [facility] | [address] | [place] | [phone] | | [facility] | | [id number] | | | - LABORATORY | | | | + + + + + | [facility] | [address] | [place], [place] | | | [facility] | | [address], [facility] | | | - [...] | | | Cells, | | | [facility] | | | Urine | | | [...] + | [facility] | [address] | [place], [place] | [phone] | | [facility] | | [address] | | | - LABORATORY | | | | + + + + + | [facility] | [address] | [place], [place] | | | [facility] | | [address] | | | - LABORATORY | [...] - 1.030 | [facility] | | | [place], | | | [facility] | | [...] [address] | [place] | [phone] | | [facility] | | [address] | | | - LABORATORY | | | | + + + + + | [facility] | [address] | [place] | | | [facility] | | [address], [facility] | | | - LABORATORY | | | | + + + + + Respiratory Syncytial Virus, Screen (05/17/2012 9:41 PM PST) + + + + + + | Component | Value | Ref Range | Performed | Pathologist | | | | | At | Signature | + + + + + + | RSV | NEGATIVEComment: | | [facility] | | | Antigen, | INTERPRETATION: | | [facility] | | | Rapid | NEGATIVE: [...] [address] | [place] | [phone] | | [facility] | | [address] | | | - LABORATORY | | | | + + + + + | [facility] | [address] | [place], [place] | | | [facility] | | [address], [facility] | | | - [...] | | AB | NEGATIVEComment: | | [facility] | | | | Presumptive NEGATIVE [...] | + + + + + | [facility] | [address] | [place] | [phone] | | [facility] | | [address] | | | - LABORATORY | | | | + + + + + | [facility] | [address] | [place], [place] | | | [facility] | | [address], [facility] | | | - [...] + + | [facility] | [address] | [place] | [phone] | | [facility] | | [address] | | | - LABORATORY | | | | + + + + + documented in this encounter Visit Diagnoses Not on filedocumented in this encounter
--- OUTSIDE RECORDS SUMMARY | ~2019-12-15 | XMS | Encounter Summary ---
Demographics + + + | Address | [address] | | | [place] [address] | + + + | Home Phone | | + + + | Preferred Language | Unknown | + + + | Marital Status | | + + + | Zoroastrianism Affiliation | 1013 | + + + [...] | | | | | [place] [address] | | + + + + + | Melissa Daley | ECON | [address] | | | | | [place] [address] | | + + + + + Care Team Providers + +------+ + | Care Broadband Technician Name | Role | Phone | + +------+ + | Jona Deal MD | PCP | | + +------+ + Reason for Visit +--------+--------+ + | Reason | Onset | Comments | | | Date | | +--------+--------+ + | Other | 07/14/ | Oximetry order | | | 2012 | | +--------+--------+ + Encounter Details +--------+ + + + + | Date | Type | Department | Care Team | Description | +--------+ + + + + | 07/14/ | Telephone | [facility] [place] | Offenstein, | Other (Oximetry | | 2012 | | PULMONARY [address] | Carmelita Penny MD | order) | | | | [place], | | | | | | [place] [address] | | | | | | [phone] | | | +--------+ + + + [...] Telephone Encounter - Sushil Crockett RN - 07/14/2012 9:30 AM PSTPatient called. re sharrond. Informed that overnight pulse oximetry to be done on room air. Voiced understanding . Order faxed to Joya Butt. documented in this en counter Plan of [...] | | | | | [place] [address] | | | | | | [phone] | | | | | | | | +--------+---------+ + + + documented as of this encounter Visit Diagnoses Not on filedocumented in this encounter"
--- OUTSIDE RECORDS SUMMARY | ~2019-12-15 | XMS | Encounter Summary ---
Demographics + + + | Address | [address] | | | [place] [address] | + + + | Home Phone | | + + + | Preferred Language | Unknown | + + + | Marital Status | | + + + | Caodaism Affiliation | 1013 | + + + | Race | Unknown | + + + | Ethnic Group | Unknown | + + + Author + + + | Author | [facility] | | | and [place] | + + + | Organization | [facility] | | | [...] | | | | | [place] [address] | | + + + + + | Melissa Daley | ECON | [address] | | | | | [place] [address] | | + + + + + Care Team Providers + +------+ + | Care Pheresis Nurse Name | Role | Phone | [...] | | | | | | [place] [address] | | | | | | [phone] | | | +--------+ + + + [...] | | | | | [place], [place] [address] | | | | | | [phone] | | | | | | | | +--------+---------+ + + + documented as of this encounter Visit Diagnoses Not on filedocumented in this encounter"
--- OUTSIDE RECORDS SUMMARY | ~2019-12-15 | XMS | Encounter Summary ---
Demographics + + + | Address | [address] | | | [place] [address] | + + + | Home Phone | | + + + | Preferred Language | Unknown | + + + | Marital Status | | + + + | Baptism Affiliation | 1013 | + + + | Race | Unknown | + + + | Ethnic Group | Unknown | + + + Author + + + | Author | [facility] | | | and [place] | + + + | Organization | [facility] | | | and [...] | | | | | [place] [address] | | + + + + + | Melissa Daley | ECON | [address] | | | | | [place] [address] | | + + + + + Care Team Providers + +------+ + | Care Half Backer Name | Role | Phone | + +------+ + PCP | Unavailable | + +------+ + Encounter Details +--------+ + + + + | Date | Type | Department | Care Team | Description | +--------+ + + + + | 02/24/ | Hospital | [facility] | Rakseh Ruiz MD | | | 1999 | Encounter | MED CTR GENERIC OP | [address], [place] | | | | | CONV DEPT [address] | [address] [place], [place] | | | | | [place], | [address] | | | | | [place] [address] | | | | | | [phone] | | | +--------+ + + + [...] | | | | | [place] [address] | | | | | | [phone] | | | | | | | | +--------+---------+ + + + documented as of this encounter Visit Diagnoses Not on filedocumented in this encounter"
--- OUTSIDE RECORDS SUMMARY | ~2019-12-15 | XMS | Encounter Summary ---
Demographics + + + | Address | [address] | | | [place] [address] | + + + | Home Phone | | + + + | Preferred Language | Unknown | + + + | Marital Status | | + + + | Religion Affiliation | 1013 | + + + | Race | Unknown | + + + | Ethnic Group | Unknown | + + + Author + + + | Author | [facility] | | | and [place] | + + + | Organization | [facility] | | | [...] | | | | | [place] [address] | | + + + + + | Melissa Sheldon | ECON | [address] | | | | | [place] [address] | | + + + + + Care Team Providers + +------+ + | Care Manager Control Name | Role | Phone | + [...] + | 08/16/ | Office | [facility] | Mike, | BOOP (bronchiolitis | | 2013 | Visit | PULMONARY [address] | Carmelita Penny MD | obliterans with | | | | [place], | | organizing | | | | [place] [address] | | pneumonia) ([facility]) | | | | [phone] | | (Primary Dx); | | | [...] routine follow up. He notes that Dr. Deal di d also double his metformin dose to [...] | | | | | [place] [address] | | | | | | [phone] | | | | | | | | +--------+---------+ + + + documented as of this encounter Results XR Chest PA and Lateral (09/29/2012 12:27 PM PDT) + + | Specimen | + + | | + + + + + | Narrative | Performed At | + + + | [facility] | [place] | | Department [address] [facility] | [facility] | | [ rep ct [address]] [ rep [facility] | | st zip] Signed | - IMAGING | | | | | Patient Name: RON SHELDON V Physician: | | | DOROTEOTylerAllan : 1935 Age: 77 Sex: M Unit #: [id number] | | | Exam Date: 09/29/12 Location: [facility] | | | Report #: [id number] Page: | | | %(RAD)RES..mtdd.print.filter("pg") of %(RAD) | | | RES..mtdd.print.filter("tpg") | | | | | | Accession Number: [id number] | | | CHEST, PA AND LATERAL, [...] | | | Transcribed Date/Time: 09/29/2012 12:33 Customs Examiner: | | | MR.BS <<Signature on File>> | | | Mart | | | MD [place]09/29/12 1551 <Electronically signed by Mart Boyle MD> | | | Mart Boyle MD 09/29/12 1227 Customs Examiner: [employer] | | | Hasctjnadatfg84/10/13 1233 Carmelita Mckeon MD | | | | | + + + + + + + + | Performing | Address | City/State/Zipcode | Phone Number | | Organization | | | | + + + + + | [facility] | [address] | [place] | [phone] | | [facility] | | [address] | | | - IMAGING | | [...]
--- OUTSIDE RECORDS SUMMARY | ~2019-12-15 | XMS | Encounter Summary ---
Demographics + + + | Address | [address] | | | [place] [address] | + + + | Home Phone | | + + + | Preferred Language | Unknown | + + + | Marital Status | | + + + | Sabianist Affiliation | 1013 | + + + | Race | Unknown | + + + | Ethnic Group | Unknown | + + + Author + + + | Author | [facility] | | | and [place] | + + + | Organization | [facility] | | [...] | | | | | [place] [address] | | + + + + + | Melissa Daley | ECON | [address] | | | | | [place] [address] | | + + + + + Care Team Providers + +------+ + | Care House Carpenter Name | Role | Phone | + [...] | obliterans with | | | | [place], | | organizing | | | | [place] [address] | | pneumonia) (HCC) | | | | [phone] | | | +--------+ + + + [...] [place] | | | | | | [place] [address] | | | | | | [phone] | | | | | | | | +--------+---------+ + + + documented as of this encounter Visit Diagnoses + + | Diagnosis | + + | BOOP (bronchiolitis obliterans with organizing pneumonia) ([facility]) 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
--- OUTSIDE RECORDS SUMMARY | ~2019-12-15 | XMS | Encounter Summary ---
Demographics + + + | Address | [address] | | | [place] [address] | + + + | Home Phone | | + + + | Preferred Language | Unknown | + + + | Marital Status | | + + + | Muslim Affiliation | 1013 | + + + [...] | | | | | [place] [address] | | + + + + + | Melissa Sheldon | ECON | [address] | | | | | [place] [address] | | + + + + + Care Team Providers + +------+ + | Care Supervisor Film Processing Name | Role | Phone | + [...] + + | 07/26/ | Office | [facility] | Carlieenstein, | BOOP (bronchiolitis | | 2013 | Visit | PULMONARY [address] | Carmelita Penny MD | obliterans with | | | | [place], | | organizing | | | | [place] [address] | | pneumonia) (HCC) | | | | [phone] | | (Primary Dx); | | | [...] [place] [facility] [address] [place], [address] HPI Ron Sheldon is a 78 y.o. [...] made to ensure accuracy; however, inadvertent computerized behavioral health consultant errors may be pre sent. Ydorose mary in t his encounter Plan of Treatment [...] | | | | | [place] [address] | | | | | | [phone] | | | | | | | [...] | [facility] | [place] | | Department [address] [facility] | [place] | | [ rep ct [address]] [ rep ct [facility] | | st zip] Signed | - IMAGING | | | | | Patient Name: RON SHELDON V Physician: | | | DOROTEO. : 1935 Age: 78 Sex: M Unit #: [id number] | | | Exam Date: 07/26/13 Location: [facility] | | | Report #: [id number] Page: | | | %(RAD)RES..mtdd.print.filter("pg") of %(RAD) | | | RES..mtdd.print.filter("tpg") | | | | | | Accession Number: [id number] | | | CHEST, PA AND LATERAL, [...] Transcribed Date/Time: 07/26/2013 16:02 | | | Gis Consultant: <<Signature on File>> | | | | | | Kiko Hair MD07/26/13 1931 <Electronically signed by Kiko | | | Melina Hair MD> Kiko Hair MD 07/26/13 1432 | | | Gis Consultant: [email or web address] Intelligenceangela Mcrtxhuixoaco73/04/14 1602 | | | Carmelita Mckeon MD | | + + + + + + + + | Performing | Address | City/State/Zipcode | Phone Number | | Organization | | | | + + + + + | [facility] | [address] | [place] | [phone] | | [facility] | | [address] | | | - IMAGING | | [...]
--- OUTSIDE RECORDS SUMMARY | ~2019-12-15 | XMS | Encounter Summary ---
Demographics + + + | Address | [address] | | | [place] [address] | + + + | Home Phone | | + + + | Preferred Language | Unknown | + + + | Marital Status | | + + + | Buddhist Affiliation | 1013 | + + + [...] | | | | | [place] [address] | | + + + + + | Melissa Daley | ECON | [address] | | | | | [place] [address] | | + + + + + Care Team Providers + +------+ + | Care Electroplater Automatic Name | Role | Phone | + +------+ + PCP | Unavailable | + +------+ + Encounter Details +--------+ + + + + | Date | Type | Department | Care Team | Description | +--------+ + + + + | 02/23/ | Hospital | [facility] | | | | 1991 | Encounter | MED CTR XRAY [address] | | | | | | [place] | | | | | | [place] [address] | | | | | | [phone] | | | +--------+ + + + [...] | | | | | [place] [address] | | | | | | [phone] | | | | | | | | +--------+---------+ + + + documented as of this encounter Visit Diagnoses Not on filedocumented in this encounter"
--- OUTSIDE RECORDS SUMMARY | ~2019-12-15 | XMS | Encounter Summary ---
Demographics + + + | Address | [address] | | | [place] [address] | + + + | Home Phone | | + + + | Preferred Language | Unknown | + + + | Marital Status | | + + + | Jain Affiliation | 1013 | + + + | Race | Unknown | + + + | Ethnic Group | Unknown | + + + Author + + + | Author | [facility] | | | and [place] | + + + | Organization | [facility] | | [...] | | | | | [place] [address] | | + + + + + | Melissa Daley | ECON | [address] | | | | | [place] [address] | | + + + + + Care Team Providers + +------+ + | Care Engineering Scientist Name | Role | Phone | + [...] Penny MD | | | | | [place], | | | | | | [place] [address] | | | | | | [phone] | | | +--------+--------+ + + + [...] | | | | | [place] [address] | | | | | | [phone] | | | | | | | | +--------+---------+ + + + documented as of this encounter Visit Diagnoses Not on filedocumented in this encounter"
--- OUTSIDE RECORDS SUMMARY | ~2019-12-15 | XMS | Encounter Summary ---
Demographics + + + | Address | [address] | | | [place] [address] | + + + | Home Phone | | + + + | Preferred Language | Unknown | + + + | Marital Status | | + + + | Denominational Affiliation | 1013 | + + + | Race | Unknown | + + + | Ethnic Group | Unknown | + + + Author + + + | Author | [facility] | | | and [place] | + + + | Organization | [facility] | [...] | | | | | [place] [address] | | + + + + + | Melissa Daley | ECON | [address] | | | | | [place] [address] | | + + + + + Care Team Providers + +------+ + | Care Chopping Machine Operator Name | Role | Phone [...] Penny MD | | | | | [place], | | | | | | [place] [address] | | | | | | [phone] | | | +--------+--------+ + + + [...] | | | | | [place] [address] | | | | | | [phone] | | | | | | | | +--------+---------+ + + + documented as of this encounter Visit Diagnoses Not on filedocumented in this encounter"
--- OUTSIDE RECORDS SUMMARY | ~2019-12-15 | XMS | Encounter Summary ---
Demographics + + + | Address | [address] | | | [place] [address] | + + + | Home Phone [...] | | | | | [place] [address] | | + + + + + | Melissa Daley | ECON | [address] | | | | | [place] [address] | | + + + + + Care Team Providers + +------+ + | Care Bakery Worker Conveyor Line Name | Role | Phone | + [...] | | | | | | [place] [address] | | | | | | [phone] | | | +--------+ + + + [...] time. P M PDTTelephone Encounter - Marci Mcneal RN - 04/05/2013 3:09 PM PDTCalled Ron [...] | | | | | [place], [place] [address] | | | | | | [phone] | | | | | | | | +--------+---------+ + + + documented as of this encounter Visit Diagnoses Not on filedocumented in this encounter"
--- OUTSIDE RECORDS SUMMARY | ~2019-12-15 | XMS | Encounter Summary ---
Demographics + + + | Address | [address] | | | [place] [address] | + + + | Home Phone [...] + + | Author | [facility] | | | and [place] | + + + | Organization | [facility] | | | [...] | | | | | [place] [address] | | + + + + + | Melissa Daley | ECON | [address] | | | | | [place] [address] | | + + + + + Care Team Providers + +------+ + | Care Country Printer Name | Role | Phone | + [...] | RN | | | | | [place], | | | | | | [place] [address] | | | | | | [phone] | | | +--------+ + + + [...] | | | | | [place] [address] | | | | | | [phone] | | | | | | | | +--------+---------+ + + + documented as of this encounter Visit Diagnoses Not on filedocumented in this encounter"
--- OUTSIDE RECORDS SUMMARY | ~2019-12-15 | XMS | Encounter Summary ---
Demographics + + + | Address | [address] | | | [place] [address] | + + + | Home Phone | | + + + | Preferred Language | Unknown | + + + | Marital Status | | + + + | Hinduism Affiliation | 1013 | + + + | Race | Unknown | + + + | Ethnic Group | Unknown | + + + Author + + + | Author | [facility] | | | and [place] | + + + | Organization | [facility] | | [...] | | | | | [place] [address] | | + + + + + | Melissa Daley | ECON | [address] | | | | | [place] [address] | | + + + + + Care Team Providers + +------+ + | Care Pier Hand Name | Role | Phone | + +------+ + PCP | Unavailable | + +------+ + Encounter Details +--------+ + + + + | Date | Type | Department | Care Team | Description | +--------+ + + + + | 09/19/ | Hospital | [facility] | Rakesh Ruiz MD | | | 2005 | Encounter | MED CTR GENERIC OP | [address], [place] | | | | | CONV DEPT [address] | [address] [place], [place] | | | | | [place], | [address] | | | | | [place] [address] | | | | | | [phone] | | | +--------+ + + + [...] | | | | | [place] [address] | | | | | | [phone] | | | | | | | | +--------+---------+ + + + documented as of this encounter Visit Diagnoses Not on filedocumented in this encounter"
--- OUTSIDE RECORDS SUMMARY | ~2019-12-15 | XMS | Encounter Summary ---
Demographics + + + | Address | [address] | | | [place] [address] | + + + | Home Phone | | + + + | Preferred Language | Unknown | + + + | Marital Status | | + + + | Adventism Affiliation | 1013 | + + + [...] | | | | | [place] [address] | | + + + + + | Melissa Daley | ECON | [address] | | | | | [place] [address] | | + + + + + Care Team Providers + +------+ + | Care Stereotype Finisher Name | Role | Phone | + +------+ + | Jona Deal MD | PCP | | + +------+ + Encounter Details +--------+ + + + + | Date | Type | Department | Care Team | Description | +--------+ + + + + | 06/01/ | Abstract | [facility] | Alex Nam | | | 2017 | | SURGERY [address] | MD Malaika, FACS [address] | | | | [address] [place], [place] | [address] [facility] | | | | | [address] | [place] [address] | | | | | [phone] | [phone] | | | | | | | [...] and Digit waveform s on 05/05/2017 at [facility] client resolution specialist. RIGHT: 1.12 LEFT 1.19 NOTES: Bilateral [...] | | | | | [place] [address] | | | | | | [phone] | | | | | | | | +--------+---------+ + + + documented as of this encounter Visit Diagnoses Not on filedocumented in this encounter"
--- OUTSIDE RECORDS SUMMARY | ~2019-12-15 | XMS | Encounter Summary ---
Demographics + + + | Address | [address] | | | [place] [address] | + + + | Home Phone [...] | | | | | [place] [address] | | + + + + + | Melissa Sheldon | ECON | [address] | | | | | [place] [address] | | + + + + + Care Team Providers + +------+ + | Care Admissions Recruiter Name | Role | Phone | + +------+ + | Jona Deal MD | PCP | | + +------+ + Encounter Details +--------+ + + + + | Date | Type | Department | Care Team | Description | +--------+ + + + + | 09/29/ | Hospital | [facility] | Offenstein, | BOOP (bronchiolitis | | 2012 - | Encounter | MED CTR XRAY [address] | Carmelita Penny MD | obliterans with | | | | [place] | | organizing | | 10/01/ | | [place] [address] | | pneumonia) (HCC) | | 2012 | | [phone] | | | +--------+ + + + [...] | | | | | [place] [address] | | | | | | [phone] | | | | | | | [...] Performed At | + + + | [facility] | [place] | | Department [address] [place] [address], [place] | [facility] | | [ rep ct [address]] [ rep [facility] | | st zip] Signed | - IMAGING | | | | | Patient Name: RON SHELDON V Physician: | | | DOROTEOTyler : 1935 Age: 77 Sex: M Unit #: [id number] | | | Exam Date: 09/29/12 Location: [facility] | | | Report #: [id number] Page: | | | %(RAD)RES..mtdd.print.filter("pg") of %(RAD) | | | RES..mtdd.print.filter("tpg") | | | | | | Accession Number: [id number] | | | CHEST, PA AND LATERAL, [...] | | | Transcribed Date/Time: 09/29/2012 12:33 Engineering Designer: | | | <<Signature on File>> | | | Mart | | | MD [place]09/29/12 1551 <Electronically signed by Mart Boyle MD> | | | Mart Boyle MD 09/29/12 1227 Engineering Designer: SofGenieangela | | | [email or web address]/10/13 1233 Carmelita Mckeon MD | | | | | + + + + + + + + | Performing | Address | City/State/Zipcode | Phone Number | | Organization | | | | + + + + + | [facility] | [address] 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
--- OUTSIDE RECORDS SUMMARY | ~2019-12-15 | XMS | Encounter Summary ---
Demographics + + + | Address | [address] | | | [place] [address] | + + + | Home Phone | | + + + | Preferred Language | Unknown | + + + | Marital Status | | + + + | Sikhism Affiliation | 1013 | + + + [...] | | | | | [place] [address] | | + + + + + | Melissa Daley | ECON | [address] | | | | | [place] [address] | | + + + + + Care Team Providers + +------+ + | Care Friction Paint Machine Tender Name | Role | Phone [...] | RN | | | | | [place], | | | | | | [place] [address] | | | | | | [phone] | | | +--------+ + + + [...] wearing nocturnal O 2 at 1 l/m. Okjosr per Mrs. Daley. 13 12:04 PM PSTdocumented [...] | | | | | [place] [address] | | | | | | [phone] | | | | | | | | +--------+---------+ + + + documented as of this encounter Visit Diagnoses Not on filedocumented in this encounter"
--- OUTSIDE RECORDS SUMMARY | ~2019-12-15 | XMS | Encounter Summary ---
Demographics + + + | Address | [address] | | | [place] [address] | + + + | Home Phone [...] | | | | | [place] [address] | | + + + + + | Melissa Daley | ECON | [address] | | | | | [place] [address] | | + + + + + Care Team Providers + +------+ + | Care Land Leasing Examiner Name | Role | Phone | + [...] | | | | | | [place] [address] | | | | | | | Phone: | | | | | | | [phone] | | | | | | | Fax: | | | | | | | [phone] | +--------+--------+ + + + + Encounter Details +--------+---------+ + + + | Date | Type | Department | Care Team | Description | +--------+---------+ + + + | 03/05/ | Office | [facility] | Donnie Palacios, | Primary | | 2017 | Visit | ORTHOPEDIC SURGERY | [address] | 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
--- OUTSIDE RECORDS SUMMARY | ~2019-12-15 | XMS | Encounter Summary ---
Demographics + + + | Address | [address] | | | [place] [address] | + + + | Home Phone | | + + + | Preferred Language | Unknown | + + + | Marital Status | | + + + | Mormon Affiliation | 1013 | + + + | Race | Unknown | + + + | Ethnic Group | Unknown | + + + Author + + + | Author | [facility] | | | and [place] | + + + | Organization | [facility] | | | [...] | | | | | [place] [address] | | + + + + + | Melissa Daley | ECON | [address] | | | | | [place] [address] | | + + + + + Care Team Providers + +------+ + | Care Watchmaking Teacher Name | Role | Phone | [...] | | | | | | [place] [address] | | | | | | [phone] | | | +--------+ + + + [...] discontinue portable oxygen. V oineelima Hinson in [place] faxed DC of portable Oxygen order. documented [...] | | | | | [place] [address] | | | | | | [phone] | | | | | | | | +--------+---------+ + + + documented as of this encounter Visit Diagnoses Not on filedocumented in this encounter"
--- OUTSIDE RECORDS SUMMARY | ~2019-12-15 | XMS | Encounter Summary ---
Demographics + + + | Address | [address] | | | [place] [address] | + + + | Home Phone [...] | | | | | [place] [address] | | + + + + + | Melissa Daley | ECON | [address] | | | | | [place] [address] | | + + + + + Care Team Providers + +------+ + | Care Roller Hand Name | Role | Phone | [...] | RN | | | | | [place], | | | | | | [place] [address] | | | | | | [phone] | | | +--------+ + + + [...] | | | | | [place] [address] | | | | | | [phone] | | | | | | | | +--------+---------+ + + + documented as of this encounter Visit Diagnoses Not on filedocumented in this encounter"
--- OUTSIDE RECORDS SUMMARY | ~2019-12-15 | XMS | Encounter Summary ---
Demographics + + + | Address | [address] | | | [place] [address] | + + + | Home Phone [...] | | | | | [place] [address] | | + + + + + | Melissa Daley | ECON | [address] | | | | | [place] [address] | | + + + + + Care Team Providers + +------+ + | Care Director Human Services Name | Role | Phone | + +------+ + PCP | Unavailable | + +------+ + Encounter Details +--------+ + + + + | Date | Type | Department | Care Team | Description | +--------+ + + + + | 10/18/ | Hospital | [facility] | Unknown, | | | 1992 | Encounter | MED CTR XRAY [address] | MD Payton . | | | | | [place] | | | | | | [place] [address] | (Fax) | | | | | [phone] | | | +--------+ + + + [...] | | | | | [place] [address] | | | | | | [phone] | | | | | | | | +--------+---------+ + + + documented as of this encounter Visit Diagnoses Not on filedocumented in this encounter"
--- OUTSIDE RECORDS SUMMARY | ~2019-12-15 | XMS | Encounter Summary ---
Demographics + + + | Address | [address] | | | [place] [address] | + + + | Home Phone [...] | | | | | [place] [address] | | + + + + + | Melissa Daley | ECON | [address] | | | | | [place] [address] | | + + + + + Care Team Providers + +------+ + | Care Assembler Seat Name | Role | Phone | + [...] + + | 12/18/ | Telephone | [facility] | Rakesh Ruiz MD | Referral | | 2017 | | GASTROENTEROLOGY | [address], [place] | (colonoscopy not | | | | [address] [place] | [address] [place] | needed unless | | | | [address] [place], [place] | [address] | symptoms.) | | | | [address] | | | | | | [phone] | | | +--------+ + + + [...] [address] | | | | | | [address], [place] | | | | | | [place] [address] | | | | | | [phone] | | | | | | | | +--------+---------+ + + + documented as of this encounter Visit Diagnoses Not on filedocumented in this encounter"
--- OUTSIDE RECORDS SUMMARY | ~2019-12-15 | XMS | Encounter Summary ---
Demographics + + + | Address | [address] | | | [place] [address] | + + + | Home Phone [...] | | | | | [place] [address] | | + + + + + | Melissa Daley | ECON | [address] | | | | | [place] [address] | | + + + + + Care Team Providers + +------+ + | Care Second Floor Operator Name | Role | Phone | + +------+ + PCP | Unavailable | + +------+ + Encounter Details +--------+ + + + + | Date | Type | Department | Care Team | Description | +--------+ + + + + | 04/09/ | Hospital | [facility] | | | | 2000 | Encounter | MED CTR XRAY [address] | | | | | | [place] | | | | | | [place] [address] | | | | | | [phone] | | | +--------+ + + + [...] | | | | | [place] [address] | | | | | | [phone] | | | | | | | | +--------+---------+ + + + documented as of this encounter Visit Diagnoses Not on filedocumented in this encounter"
--- OUTSIDE RECORDS SUMMARY | ~2019-12-15 | XMS | Encounter Summary ---
Demographics + + + | Address | [address] | | | [place] [address] | + + + | Home Phone | | + + + | Preferred Language | Unknown | + + + | Marital Status | | + + + | Anglican Affiliation | 1013 | + + + [...] | | | | | [place] [address] | | + + + + + | Melissa Sheldon | ECON | [address] | | | | | [place] [address] | | + + + + + Care Team Providers + +------+ + | Care Radio Division Officer Name | Role | Phone | [...] + + | 06/23/ | Office | [facility] | Carlieenstein, | BOOP (bronchiolitis | | 2012 | Visit | PULMONARY [address] | Carmelita Penny MD | obliterans with | | | | [place], | | organizing | | | | [place] [address] | | pneumonia) (HCC) | | | | [phone] | | (Primary Dx); | | | [...] note he occasionally has gotten dizzy with Lingvist around. His oxygen level has been running [...] breath sounds are diminished bilaterally, no wheezes, aircraft maintenance instructor ckles or rhonchi Chest Wall: No deformity [...] | | | | | [place] [address] | | | | | | [phone] | | | | | | | | +--------+---------+ + + + documented as of this encounter Results XR Chest PA and Lateral (07/21/2012 11:21 AM PST) + + | Specimen | + + | | + + + + + | Narrative | Performed At | + + + | [facility] | [place] | | Department [address] [facility] [place] | [facility] | | [ rep ct street[address]] [ rep ct [facility] | | st zip] Signed | - IMAGING | | | | | Patient Name: MARQUISMyrandaRACHAELRON Anabelle Physician: | | | E. : 1935 Age: 77 Sex: M Unit #: [id number] | | | Exam Date: 07/21/12 Location: [facility] | | | Report #: [id number] Page: | | | %(RAD)RES..mtdd.print.filter("pg") of %(RAD) | | | RES..mtdd.print.filter("tpg") | | | | | | Accession Number: [id number] | | | PA AND LATERAL TWO [...] Transcribed Date/Time: | | | 07/21/2012 11:27 Film Cutter: | | | <<Signature on File>> | | | Kiko | | | Melina Hair MD07/21/121920 <Electronically signed by Kiko Deng | Sowmya Hair MD> Kiko Hair MD 07/21/12 1121 | | | Film Cutter: [employer] [id number]/30/13 1127 | | | Carmelita Mckeon MD | | + + + + + + + + | Performing | Address | City/State/Zipcode | Phone Number | | Organization | | | | + + + + + | [facility] | [address] | [place] | [phone] | | [facility] | | [address] | | | - IMAGING | | | | + + + + + XR Chest PA and Lateral (06/23/2012 1:39 PM PST) + + | Specimen | + + | | + + + + + | Narrative | Performed At | + + + | [facility] | [place] | | Department [address] [place] | [facility] | | [ rep ct street1+[address]] [ rep ct [facility] | | st zip] Signed | - IMAGING | | | | | Patient Name: RON SHELDON V Physician: | | | OFFE.01 : 1935 Age: 77 Sex: M Unit #: [id number] | | | Exam Date: 06/23/12 Location: [facility] | | | Report #: [id number] Page: | | | %(RAD)RES..mtdd.print.filter("pg") of %(RAD) | | | RES..mtdd.print.filter("tpg") | | | | | | Accession Number: [id number] | | | TWO-VIEW CHEST CLINICAL HISTORY: [...] Transcribed Date/Time: 06/23/2012 13:44 | | | Film Cutter: <<Signature on File>> | | | | | | Tan Keenan MD06/23/12 1729 <Electronically signed by | | | Tan Keenan MD> Tan Keenan MD 06/23/12 | | | 1339 Film Cutter: [employer] [id number]/02/13 1344 | | | Carmelita Mckeon MD | | + + + + + + + + | Performing | Address | City/State/Zipcode | Phone Number | | Organization | | | | + + + + + | [facility] | [address] | [place] | [phone] | | [facility] | | [address] | | | - IMAGING | | [...]
--- OUTSIDE RECORDS SUMMARY | ~2019-12-15 | XMS | Encounter Summary ---
Demographics + + + | Address | [address] | | | [place] [address] | + + + | Home Phone | | + + + | Preferred Language | Unknown | + + + | Marital Status | | + + + | Amish Affiliation | 1013 | + + + | Race | Unknown | + + + | Ethnic Group | Unknown | + + + Author + + + | Author | [facility] | | | and [place] | + + + | Organization | [facility] | [...] [address] | | | | | [place] [address] | | + + + + + | Melissa Sheldon | ECON | [address] | | | | | [place] [address] | | + + + + + Care Team Providers + +------+ + | Care Agency Development Manager Name | Role | Phone | + +------+ + | Jona Deal MD | PCP | | + +------+ + Encounter Details +--------+ + + + + | Date | Type | Department | Care Team | Description | +--------+ + + + + | 05/17/ | Hospital | [facility] | | | | 2012 | Encounter | MED CTR XRAY [address] | | | | | | [place] | | | | | | [place] [address] | | | | | | [phone] | | | +--------+ + + + [...] | | | | | [place] [address] | | | | | | [phone] | | | | | | | [...] + | [facility] | [place] | | Department [address] [facility] [place] | [facility] | | [ rep ct street1+2] [ rep [facility] | | st zip] Signed | - IMAGING | | | | | Patient Name: RON SHELDON V Physician: | | | GIFF.20 : 1935 Age: 78 Sex: M Unit #: [id number] | | | Exam Date: 05/17/13 [place] [facility] | | | Report #: [id number] Page: | | | %(RAD)RES..mtdd.print.filter("pg") of %(RAD) | | | RES..mtdd.print.filter("tpg") | | | | | | Accession Number: [id number] | | | MRI LUMBAR SPINE, 05/17/2013 [...] | | pole of the right kidney. Nvlmz-tp-qasiy analysis of | | | the axial [...] | | | Transcribed Date/Time: 05/17/2013 17:36 Orthotic/Prosthetic Practitioner: | | | <<Signature on File>> | | | | | | Tan Keenan MD05/18/13 0654 <Electronically signed by | | | Tan Keenan MD> Tan Keenan MD 05/17/13 | | | 1548 Orthotic/Prosthetic Practitioner: [employer] [email or web address]/26/13 1736 | | | DO Jona Weir MD | | + + + + + + + + | Performing | Address | City/State[facility] | Phone Number | | Organization | | | | + + + + + | [facility] | [address] | [place] | [phone] | | [facility] | | [address] | | | - IMAGING | | | | + + + + + documented in this encounter Visit Diagnoses Not on filedocumented in this encounter
--- OUTSIDE RECORDS SUMMARY | ~2019-12-15 | XMS | Encounter Summary ---
Demographics + + + | Address | [address] | | | [place] [address] | + + + | Home Phone [...] | | | | | [place] [address] | | + + + + + | Melissa Sheldon | ECON | [address] | | | | | [place] [address] | | + + + + + Care Team Providers + +------+ + | Care Rubber Goods Assembler Name | Role | Phone | + +------+ + | Jona Deal MD | PCP | | + +------+ + Encounter Details +--------+ + + + + | Date | Type | Department | Care Team | Description | +--------+ + + + + | 04/01/ | Hospital | [facility] | [place], | BOOP (bronchiolitis | | 2013 | Encounter | MED CTR XRAY [address] | Carmelita Penny MD | obliterans with | | | | [place] | | organizing | | | | [place] [address] | | pneumonia) (HCC) | | | | [phone] | | | +--------+ + + + [...] | | | | | [place] [address] | | | | | | [phone] | | | | | | | [...] At | + + + | [facility] | [place] | | Department [address] [facility] | [facility] | | [ rep ct street1[address]] [ rep [facility] | | [facility]] Signed | - IMAGING | | | | | Patient Name: RON SHELDON V Physician: | | | DOROTEO. : 1935 Age: 78 Sex: M Unit #: [id number] | | | Exam Date: 04/01/13 Location[place] [facility] | | | Report #: [id number] Page: | | | %(RAD)RES..mtdd.print.filter("pg") of %(RAD) | | | RES..mtdd.print.filter("tpg") | | | | | | Accession Number: [id number] | | | CHEST X-RAY CLINICAL HISTORY: [...] | | | Transcribed Date/Time: 04/01/2013 13:30 Dental Assisting Instructor: | | | <<Signature on File>> | | | Mart | | | MD [place]04/01/13 5885 <Electronically signed by Mart Boyle MD> | | | Mart Boyle MD 04/01/13 1300 Dental Assisting Instructor: Cayetano | | | [id number]/11/13 5451 Carmelita Mckeon MD | | | | | + + + + + + + + | Performing | Address | City/State/Zipcode | Phone Number | | Organization | | | | + + + + + | [facility] | [address] 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
--- OUTSIDE RECORDS SUMMARY | ~2019-12-15 | XMS | Encounter Summary ---
Demographics + + + | Address | [address] | | | [place] [address] | + + + | Home Phone [...] | | | | | [place] [address] | | + + + + + | Melissa Daley | ECON | [address] | | | | | [place] [address] | | + + + + + Care Team Providers + +------+ + | Care Varnish Cooker Name | Role | Phone | + [...] | | [address] [place] [address] | [place] [address] | | | | | | [place], | Phone: | | | | | | [place] | [phone] | | | | | | [address] | Fax: | | | | | | Phone: | [phone] | | | | | | [phone] | | | | | | | Fax: | | | | | | | [phone] | | +--------+--------+ + + + + Encounter Details +--------+---------+ + + + | Date | Type | Department | Care Team | Description | +--------+---------+ + + + | 07/28/ | Office | [facility] | Donnie Palacios, | Plantar fasciitis of | | 2017 | Visit | ORTHOPEDIC SURGERY | MD [address] | right foot (Primary | | | | [address] [place] | [place] | Dx) | | | | [place] | [address] | | | | | [address] | | | | | | [phone] | | | +--------+---------+ + + + [...] remodeling 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
--- OUTSIDE RECORDS SUMMARY | ~2019-12-15 | XMS | Encounter Summary ---
Demographics + + + | Address | [address] | | | [place] [address] | + + + | Home Phone [...] + + | Author | [facility] | | | and [place] | + + + | Organization | [facility] | | [...] | | | | | [place] [address] | | + + + + + | Melissa Daley | ECON | [address] | | | | | [place] [address] | | + + + + + Care Team Providers + +------+ + | Care Tennis Camp Instructor Name | Role | Phone | + +------+ + | Jona Deal MD | PCP | | + +------+ + Encounter Details +--------+ + + + + | Date | Type | Department | Care Team | Description | +--------+ + + + + | 12/14/ | Hospital | [facility] | Kiko Garrido, | | | 2019 | Encounter | MED CTR SURGICAL | [address] | | | | | [address] [place] | [place] | | | | | [place] [address] | [address] | | | | | [phone] | | | +--------+ + + + [...] | | | | | [place] [address] | | | | | | [phone] | | | | | | | | +--------+---------+ + + + documented as of this encounter Visit Diagnoses Not on filedocumented in this encounter"
--- OUTSIDE RECORDS SUMMARY | ~2019-12-15 | XMS | Encounter Summary ---
Demographics + + + | Address | [address] | | | [place] [address] | + + + | Home Phone [...] | | | | | [place] [address] | | + + + + + | Melissa Daley | ECON | [address] | | | | | [place] [address] | | + + + + + Care Team Providers + +------+ + | Care Senior Financial Reporting Analyst Name | Role | Phone | + +------+ + PCP | Unavailable | + +------+ + Encounter Details +--------+ + + + + | Date | Type | Department | Care Team | Description | +--------+ + + + + | 04/16/ | Hospital | [facility] | | | | 2000 - | Encounter | MED CTR OP REHAB | | | | | | [address] | | | | 04/20/ | | [place] [address] | | | | 2000 | | [phone] | | | +--------+ + + + [...] | | | | | [place] [address] | | | | | | [phone] | | | | | | | | +--------+---------+ + + + documented as of this encounter Visit Diagnoses Not on filedocumented in this encounter"
--- OUTSIDE RECORDS SUMMARY | ~2019-12-15 | XMS | Encounter Summary ---
Demographics + + + | Address | [address] | | | [place] [address] | + + + | Home Phone [...] | | | | | [place] [address] | | + + + + + | Melissa Daley | ECON | [address] | | | | | [place] [address] | | + + + + + Care Team Providers + +------+ + | Care Six Color Press Operator Name | Role | Phone | [...] | alveolar and | | | | [place], | | parietoalveolar | | | | [place] [address] | | pneumonopathies | | | | [phone] | | (HCC) (Primary Dx); | | [...] | | | | | [place] [address] | | | | | | [phone] | | | | | | | [...]
--- OUTSIDE RECORDS SUMMARY | ~2019-12-15 | XMS | Encounter Summary ---
Demographics + + + | Address | [address] | | | [place] [address] | + + + | Home Phone | | + + + | Preferred Language | Unknown | + + + | Marital Status | | + + + | Pentecostalism Affiliation | 1013 | + + + [...] | | | | | [place] [address] | | + + + + + | Melissa Daley | ECON | [address] | | | | | [place] [address] | | + + + + + Care Team Providers + +------+ + | Care Channel Cementer Outsole Machine Name | Role | Phone | + [...] + + | 04/01/ | Office | [facility] | Carlieenstein, | BOOP (bronchiolitis | | 2012 | Visit | PULMONARY [address] | Carmelita Penny MD | obliterans with | | | | [place], | | organizing | | | | [place] [address] | | pneumonia) (HCC) | | | | [phone] | | (Primary Dx); | | | | | | Nocturnal hypoxemia; | | | | | | Diabetes mellitus, | | | | | | type 2 ([facility]); | | | | | | [...] PDTDo an overnight oxy gen test through [employer]. Call to have a box delivered by the [employer]. Wear the finger probe through the night. Do the test on room air. Call the [employer] to contreras ve the box picked up the following day. Try a [employer] Sinus Rinse for your nose once a day. documented in this encounter Progress Notes Carmelita Mckeon MD - 04/01/2013 11:18 AM PDTFormatting of this note might be differe nt from the original. Pulmonary Follow Up MD [place] [facility] [address] [place], [address] HPI Ron Daley is a 78 y.o. 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 He had a fasting blood sugar on Thursday, and it was 103. He stopped the metformin on Thursday. He has been checking his blood sugars before supper and they have been 100-120. On the [facility] or, off the prednisone, he did have [...] made to ensure accuracy; however, inadvertent computerized employee development manager errors may be pre sent. documented [...] | | | | | [place] [address] | | | | | | [phone] | | | | | | | [...] + + | Diabetes mellitus, type 2 ([facility]) Type II or unspecified type diabetes mellitus without | | mention of complication, not stated as uncontrolled | + + | Chronic rhinitis | + + documented in this encounter
--- OUTSIDE RECORDS SUMMARY | ~2019-12-15 | XMS | Encounter Summary ---
Demographics + + + | Address | [address] | | | [place] [address] | + + + | Home Phone [...] | | | | | [place] [address] | | + + + + + | Melissa Daley | ECON | [address] | | | | | [place] [address] | | + + + + + Care Team Providers + +------+ + | Care Line Cook Name | Role | Phone | + [...] | RN | | | | | [place], | | | | | | [place] [address] | | | | | | [phone] | | | +--------+ + + + [...] | | | | | [place] [address] | | | | | | [phone] | | | | | | | | +--------+---------+ + + + documented as of this encounter Visit Diagnoses Not on filedocumented in this encounter"
--- OUTSIDE RECORDS SUMMARY | ~2019-12-15 | XMS | Encounter Summary ---
Demographics + + + | Address | [address] | | | [place] [address] | + + + | Home Phone [...] | | | | | [place] [address] | | + + + + + | Melissa Sheldon | ECON | [address] | | | | | [place] [address] | | + + + + + Care Team Providers + +------+ + | Care Computer Operator Name | Role | Phone | [...] + + | 09/29/ | Office | [facility] | Mike, | BOOP (bronchiolitis | | 2013 | Visit | PULMONARY [address] | Carmelita Penny MD | obliterans with | | | | [place], | | organizing | | | | [place] [address] | | pneumonia) (HCC) | | | | [phone] | | (Primary Dx); | | | | | | Nocturnal hypoxemia; | | | | | | Diabetes mellitus | | | | | | ([facility]) | +--------+---------+ + + + Social History [...] his lungs. They return today for rout [facility] follow up. Currently they are able to [...] time. 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 He is not ve ry interested in [...] made to ensure accuracy; however, inadvertent computerized unloader operator errors may be pre sent. documented in [...] | | | | | | [place] [address] | | | | | | [phone] | | | | | | | | +--------+---------+ + + + + +------+--------+ + + | Name | Type | Priori | Associated Diagnoses | Order Schedule | | | | ty | | | + +------+--------+ + + | Glucose, Fasting | Lab | Routin | Diabetes mellitus | 1 Occurrences | | | | e | ([facility]) | starting 09/29/2012 | | | | | | until 09/29/2013 | + +------+--------+ + + documented as of this encounter Results XR Chest PA and Lateral (04/01/2013 1:07 PM PDT) + + | Specimen | + + | | + + + + + | Narrative | Performed At | + + + | [facility] | [place] | | Department [address] [place] [address] | [facility] | | [ rep ct [address]] [ rep ct [facility] | | [facility]] Signed | - IMAGING | | | | | Patient Name: RON SHELDON V Physician: | | | DOROTEO. : 1935 Age: 78 Sex: M Unit #: [id number] | | | Exam Date: 04/01/13 Location: [facility] | | | Report #: [id number] Page: | | | %(RAD)RES..mtdd.print.filter("pg") of %(RAD) | | | RES..mtdd.print.filter("tpg") | | | | | | Accession Number: [id number] | | | CHEST X-RAY CLINICAL HISTORY: [...] | | | Transcribed Date/Time: 04/01/2013 13:30 Rubber Extrusion Machine Operator: | | | <<Signature on File>> | | | Mart | | | MD [place]04/01/13 3816 <Electronically signed by Mart Boyle MD> | | | Mart Boyle MD 04/01/13 1307 Rubber Extrusion Machine Operator: [employer] | | | [id number]/11/13 2905 Carmelita Mckeon MD | | | | | + + + + + + + + | Performing | Address | City/State/Zipcode | Phone Number | | Organization | | | | + + + + + | [facility] | [address] | [place] | [phone] | | [facility] | | [address] | | | - IMAGING | | | | + + + + + documented in this encounter Visit Diagnoses + + | Diagnosis | + + | BOOP (bronchiolitis obliterans with organizing pneumonia) ([facility]) - Primary Other | | specified alveolar and parietoalveolar pneumonopathies | + + | Nocturnal hypoxemia Hypoxemia | + + | Diabetes mellitus ([facility]) Type II or unspecified type diabetes mellitus without mention | | of complication, not stated as uncontrolled | + + documented in this encounter
--- OUTSIDE RECORDS SUMMARY | ~2019-12-15 | XMS | Encounter Summary ---
Demographics + + + | Address | [address] | | | [place] [address] | + + + | Home Phone [...] | | | | | [place] [address] | | + + + + + | Melissa Daley | ECON | [address] | | | | | [place] [address] | | + + + + + Care Team Providers + +------+ + | Care Forest Technology Professor Name | Role | Phone | + +------+ + PCP | Unavailable | + +------+ + Encounter Details +--------+ + + + + | Date | Type | Department | Care Team | Description | +--------+ + + + + | 05/31/ | Hospital | [facility] | | | | 2000 - | Encounter | MED CTR GENERIC IP | | | | | | CONV DEPT [address] | | | | 06/02/ | | [place], | | | | 2000 | | [place] [address] | | | | | | [phone] | | | +--------+ + + + [...] | | | | | [place] [address] | | | | | | [phone] | | | | | | | | +--------+---------+ + + + documented as of this encounter Visit Diagnoses Not on filedocumented in this encounter"
--- OUTSIDE RECORDS SUMMARY | ~2019-12-15 | XMS | Encounter Summary ---
Demographics + + + | Address | [address] | | | [place] [address] | + + + | Home Phone [...] | | | | | [place] [address] | | + + + + + | Melissa Daley | ECON | [address] | | | | | [place] [address] | | + + + + + Care Team Providers + +------+ + | Care Second Crusher Name | Role | Phone | + [...] Penny MD | | | | | [place], | | | | | | [place] [address] | | | | | | [phone] | | | +--------+--------+ + + + [...] | | | | | [place] [address] | | | | | | [phone] | | | | | | | | +--------+---------+ + + + documented as of this encounter Visit Diagnoses Not on filedocumented in this encounter"
--- OUTSIDE RECORDS SUMMARY | ~2019-12-15 | XMS | Encounter Summary ---
Demographics + + + | Address | [address] | | | [place] [address] | + + + | Home Phone [...] | | | | | [place] [address] | | + + + + + | Melissa Sheldon | ECON | [address] | | | | | [place] [address] | | + + + + + Care Team Providers + +------+ + | Care Supervisor Compounding And Finishing Name | Role | Phone | + +------+ + | Jona Deal MD | PCP | | + +------+ + Encounter Details +--------+ + + + + | Date | Type | Department | Care Team | Description | +--------+ + + + + | 08/16/ | Hospital | [facility] | [place], | BOOP (bronchiolitis | | 2012 - | Encounter | MED CTR XRAY [address] | Carmelita Penny MD | obliterans with | | | | [place] | | organizing | | 08/18/ | | [place] [address] | | pneumonia) (HCC) | | 2012 | | [phone] | | | +--------+ + + + [...] | | | | | [place] [address] | | | | | | [phone] | | | | | | | [...] At | + + + | [facility] | [place] | | Department [address] [facility] [address] | [facility] | | [ rep ct [address]] [ rep [facility] | | st [facility]] Signed | - IMAGING | | | | | Patient Name: RON SHELDON Anabelle Physician: | | | DOROTEO.01 : 1935 Age: 77 Sex: M Unit #: [id number] | | | Exam Date: 08/16/12 Location: [facility] | | | Report #: [id number] Page: | | | %(RAD)RES..mtdd.print.filter("pg") of %(RAD) | | | RES..mtdd.print.filter("tpg") | | | | | | Accession Number: [id number] | | | CHEST X-RAY CLINICAL HISTORY: [...] Transcribed Date/Time: | | | 08/16/2012 11:23 Head Stock Operator: | | | <<Signature on File>> | | | Mart | | | MD [place]08/16/12 1439 <Electronically signed by Mart Boyle MD> | | | Mart Boyle MD 08/16/12 1114 Head Stock Operator: Cayetano | | | Tfarhqqiufbfy80/25/13 1123 Carmelita Mckeon MD | | | | | + + + + + + + + | Performing | Address | City/State/Zipcode | Phone Number | | Organization | | | | + + + + + | [facility] | [address] 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
--- OUTSIDE RECORDS SUMMARY | ~2019-12-15 | XMS | Encounter Summary ---
Demographics + + + | Address | [address] | | | [place] [address] | + + + | Home Phone | | + + + | Preferred Language | Unknown | + + + | Marital Status | | + + + | Yazidism Affiliation | 1013 | + + + [...] | | | | | [place] [address] | | + + + + + | Melissa Daley | ECON | [address] | | | | | [place] [address] | | + + + + + Care Team Providers + +------+ + | Care Aircraft Systems Technician Name | Role | Phone | [...] | | BOOP | [place], | [place] | | | | | (bronchiolit | Carmelita B, | [place], | | | | | is | MD [address] | [place] [address] | | | | | obliterans | [address] | Phone: | | | | | with | [place], | [phone] | | | | | organizing | [place] [address] | Fax: | | | | | pneumonia) | | [phone] | | | | | (HCC) | [...] + + | 01/12/ | Office | [facility] | [place], | BOOP (bronchiolitis | | 2013 | Visit | PULMONARY [address] | Carmelita Penny MD | obliterans with | | | | [place], | | organizing | | | | [place] [address] | | pneumonia) ([facility]) | | | | [phone] | | (Primary Dx); Sleep | | [...] made to ensure accuracy; however, inadvertent computerized assistant director of residence life errors may be pre sent. Electronically signed by: Carmelita Mckeon MD 01/12/2014 10:26 documented in t his encounter Miscellaneous Notes Miscellaneous - ONNAHOMI CEDENO - 01/12/2014 12:00 AM PDT documented in this encounter Plan of Treatment +--------+---------+ + + + | Date | Type | Specialty | Care Team | Description | +--------+---------+ + + + | 01/12/ | Office | Neurology | Erica Nova | | | 2019 | Visit | | MD Sebastian [address] | | | | | [address], [place] | | | | | | [place] [address] | | | | | | [phone] | | | | | | | [...] | Estimated | 117 | mg/dL | [facility] | | | Average | | | [...] + | [facility] | [address] | [place], [place] | [phone] | | [facility] | | [address] | | | - LABORATORY | | | | + + + + + | [facility] | [address] | [place], [place] | | | [facility] | | [address] [place] [address] | | | - LABORATORY | | [...] CT chest dated May 17, 2012 from [facility] | | | [facility]. TECHNIQUE: Axial images are obtained from | [...] CT chest dated May 17, 2012 from [facility] | | [facility].TECHNIQUE: Axial images are obtained from [...] + | MISCELLANEOUS LAB | | | [phone] | + +---------+ + + | MISCELANIOUS LAB | | | [phone] | + +---------+ + + documented in [...]
--- OUTSIDE RECORDS SUMMARY | ~2019-12-15 | XMS | Encounter Summary ---
Demographics + + + | Address | [address] | | | [place] [address] | + + + | Home Phone [...] | | | | | [place] [address] | | + + + + + | Melissa Daley | ECON | [address] | | | | | [place] [address] | | + + + + + Care Team Providers + +------+ + | Care Pbx Manager Name | Role | Phone | [...] | | BOOP | [place], | [address] [place] | | | | | (bronchiolit | Carmelita B, | [place], | | | | | is | MD [address] | [place] [address] | | | | | obliterans | [address] | Phone: | | | | | with | [place], | [phone] | | | | | organizing | [place] [address] | Fax: | | | | | pneumonia) | | [phone] | | | | | (HCC) | [...] | | BOOP | [place], | [address] | | | | | (bronchiolit | Carmelita B, | [place], | | | | | is | MD [address] | [place] [address] | | | | | obliterans | [address] | Phone: | | | | | with | [place], | [phone] | | | | | organizing | [place] [address] | Fax: | | | | | pneumonia) | | [phone] | | | | | (HCC) | [...] + + | 01/12/ | Hospital | [facility] | [place], | BOOP (bronchiolitis | | 2014 | Encounter | MED CTR CT [address] | Carmelita Penny MD | obliterans with | | | | [place], | | organizing | | | | [place] [address] | | pneumonia) ([facility]) | | | | [phone] | | | +--------+ + + + [...] | | | | | [place] [address] | | | | | | [phone] | | | | | | | [...] 17, [address] | | | [facility]. 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
--- OUTSIDE RECORDS SUMMARY | ~2019-12-15 | XMS | Encounter Summary ---
Demographics + + + | Address | [address] | | | [place] [address] | + + + | Home Phone [...] | | | | | [place] [address] | | + + + + + | Melissa Daley | ECON | [address] | | | | | [place] [address] | | + + + + + Care Team Providers + +------+ + | Care Grab Operator Name | Role | Phone | [...] | | | | | | [place] [address] | | | | | | [phone] | | | +--------+ + + + [...] | | | | | [place] [address] | | | | | | [phone] | | | | | | | | +--------+---------+ + + + documented as of this encounter Visit Diagnoses Not on filedocumented in this encounter"
--- OUTSIDE RECORDS SUMMARY | ~2019-12-15 | XMS | Encounter Summary ---
Demographics + + + | Address | [address] | | | [place] [address] | + + + | Home Phone | | + + + | Preferred Language | Unknown | + + + | Marital Status | | + + + | Islam Affiliation | 1013 | + + + [...] | | | | | [place] [address] | | + + + + + | Melissa Sheldon | ECON | [address] | | | | | [place] [address] | | + + + + + Care Team Providers + +------+ + | Care Weight Guesser Name | Role | Phone | + +------+ + | Jona Deal MD | PCP | | + +------+ + Encounter Details +--------+ + + + + | Date | Type | Department | Care Team | Description | +--------+ + + + + | 06/01/ | Hospital | [facility] | [place], | BOOP (bronchiolitis | | 2011 - | Encounter | MED CTR GENERIC OP | Carmelita Penny MD | obliterans with | | | | CONV DEPT [address] | | organizing | | 06/03/ | | [place], | | pneumonia) (HCC) | | 2011 | | [place] [address] | | | | | | [phone] | | | +--------+ + + + [...] | | | | pneumonia) ([facility]) | | | | | [...] | | | | pneumonia) ([facility]) | | | | | [...] | | | | | [place], [place] [address] | | | | | | [phone] | | | | | | | [...] | | | | pneumonia) ([facility]) | | + +--------+ + + + documented in this encounter Results XR Chest PA and Lateral (06/01/2012 2:14 PM PST) + + | Specimen | + + | | + + + + + | Narrative | Performed At | + + + | [facility] | [place] | | Department [address] [facility] | [facility] | | [ rep ct [address]2] [ rep [facility] | | st zip] Signed | - IMAGING | | | | | Patient Name: RON SHELDON V Physician: | | | DOROTEO. : 1935 Age: 77 Sex: M Unit #: [id number] | | | Exam Date: 06/01/12 Location: [facility] | | | Report #: [id number] Page: | | | %(RAD)RES..mtdd.print.filter("pg") of %(RAD) | | | RES..mtdd.print.filter("tpg") | | | | | | Accession Number: [id number] | | | CHEST PA AND LATERAL, [...] Transcribed Date/Time: 06/01/2012 15:42 | | | Etiologist: <<Signature on File>> | | | | | | Rakesh Guerrero MD06/01/122004 <Electronically signed by Rakesh Whitmore | | | Yolanda TERAN> Rakesh Guerrero MD 06/01/12 1414 | | | Etiologist: Cayetano Vmergtqmoahqe15/11/12 1646 | | | Carmelita Mckeon MD | | + + + + + + + + | Performing | Address | City/State/Zipcode | Phone Number | | Organization | | | | + + + + + | [facility] | [address] 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
[~2019-12-15 10:17] MED LIST changes: +LIPITOR40 MG PO; +NORVASC5 MG PO
== END 2019-12-15 15:10 | disposition short-term general hospital (02) ==
LOC: ED 10:17
PROC: 0T9B70Z Drainage of Bladder with Drainage Device, Via Natural or Artificial Opening (ICD-10-PCS; principal; 2019-12-15)
DX: N13.2 Hydronephrosis with renal and ureteral calculous obstruction (principal); I10 Essential (primary) hypertension; Z91.041 Radiographic dye allergy status; Z79.899 Other long term (current) drug therapy; Z79.82 Long term (current) use of aspirin
CPT/HCPCS: 51701; 51798; 74176; 80053; 81001; 83690; 85025; 99285-25; J2405; J7030; J7040

== ENCOUNTER 2019-12-20 10:36 | Emergency (ER) | payer MEDICARE, OTHER ==
[~2019-12-20] VITALS: Ht 180.3 cm; Wt 106.6 kg
--- OUTSIDE RECORDS SUMMARY | ~2019-12-20 | XMS | Encounter Summary ---
Demographics + + + | Address | [address] | | | [place] [address] | + + + | Home Phone | | + + + | Preferred Language | Unknown | + + + | Marital Status | | + + + | Bahai Affiliation | 1013 | + + + | Race | Unknown | + + + | Ethnic Group | Unknown | + + + Author + + + | Author | [facility] | | | and [place] | + + + | Organization | [facility] | | | and [place] | + + + | Address | Unknown | + + + | Phone | Unavailable | + + + Support + + + + + | Name | Relationship | Address | Phone | + + + + + | Katie Yusuf | ECON | [address] | | | | | [place] [address] | | + + + + + | Melissa Sheldon | ECON | [address] | | | | | [place] [address] | | + + + + + Care Team Providers + +------+ + | Care Junior Architect Name | Role | Phone | + +------+ + | Jona Deal MD | PCP | | + +------+ + Reason for Visit + + + | Reason | Comments | + + + | Follow-up | BOVASILIY | + + + Encounter Details +--------+---------+ + + + | Date | Type | Department | Care Team | Description | +--------+---------+ + + + | 09/29/ | Office | [facility] | Mike, | BOOP (bronchiolitis | | 2013 | Visit | PULMONARY [address] | Carmelita Penny MD | obliterans with | | | | [place], | | organizing | | | | [place] [address] | | pneumonia) (HCC) | | | | [phone] | | (Primary Dx); | | | | | | Nocturnal hypoxemia; | | | | | | Diabetes mellitus | | | | | | ([facility]) | +--------+---------+ + + + Social History + +-------+ +--------+------+ | Tobacco Use | Types | Packs/Day | Years | Date | | | | | Used | | + +-------+ +--------+------+ | Never Smoker | | | | | + +-------+ +--------+------+ + +---+---+---+ | Smokeless Tobacco: | | | | | Never Used | | | | + +---+---+---+ + + +---------+ + | Alcohol Use | Drinks/Week | oz/Week | Comments | + + +---------+ + | No | | | | + + +---------+ + + + + | Sex Assigned at | Date Recorded | | | | + + + | Not on file | | + + + documented as of this encounter Last Filed Vital Signs + + + + + | Vital Sign | Reading | Time Taken | Comments | + + + + + | Blood Pressure | 130/80 | 09/29/2012 10:52 AM | | | | | PDT | | + + + + + | Pulse | 69 | 09/29/2012 10:52 AM | | | | | PDT | | + + + + + | Temperature | - | - | | + + + + + | Respiratory Rate | - | - | | + + + + + | Oxygen Saturation | 98% | 09/29/2012 10:52 AM | | | | | PDT | | + + + + + | Inhaled Oxygen | - | - | | | Concentration | | | | + + + + + | Weight | 102.6 kg (226 lb 4.8 | 09/29/2012 10:52 AM | | | | oz) | PDT | | + + + + + | Height | 175.3 cm (5' 9.02") | 09/29/2012 10:52 AM | | | | | PDT | | + + + + + | Body Mass Index | 33.4 | 09/29/2012 10:52 AM | | | | | PDT | | + + + + + documented in this encounter Patient Instructions Patient Instructions Cramelita Mckeon MD - 09/29/2012 11:41 AM PDTStop metformin a we ek before blood test. Do fasting blood sugar with next blood draw. Let me know if blood sugar is high off of metf ormin. documented in this encounter Progress Notes Carmelita Mckeon MD - 09/29/2012 11:10 AM PDTFormatting of this note might be differe nt from the original. Pulmonary Follow Up HPI Ron Sheldon is a 77 y.o. male patient of Jona Deal here today for follow u p of bronchiolitis obliterans organizing pneumonia. He notes that last Thursday he had a kidney stone. He has since seen two doctor's. He did take 9 oxycodone during this time. He reports that it is still in his bladder and has not pa ssed out yet. At their last visit, we had him take 2.5mg of prednisone for about two weeks and then stop. He has been off prednisone for about three weeks now and has not had any issues since that time. Since their last visit he feels like he has been doing otherwise okay. He has not othe rwise been ill. He is not on any other medications for his lungs. They return today for [facility] follow up. Currently they are able to walk 1/2 mile at their own pace on level ground. They are exerci sing regularly. He does not cough chronically. He did bring up some mucous on Thursday afternoon. They have n ot had hemoptysis. He has been evaluated for nocturnal oxygen and does use it. They are currently on 1 LPM at night. They report good compliance. He does not have symptoms of heartburn or reflux. They have had symptoms of nasal congestio n, runny nose or post nasal drip. His nose has been running some, but not worse than previou s. It comes and goes some. Blood sugars have been running in the low 100s. Oxygen is running 95-97% during the day even with exertion. Past Medical History Past Medical History Diagnosis Date BOOP (bronchiolitis obliterans with organizing pneumonia) Acute respiratory failure with hypoxia Hypertension Dyslipidemia Colon polyps Acid reflux disease Cough Sinus infection Hyperlipidemia Diverticulosis Nephrolithiasis Cataract Carpal tunnel syndrome Osteoarthritis Walking pneumonia Steroid-induced diabetes Past Surgical History Past Surgical History Procedure Date Colonoscopy Appendectomy age 8 Cholecystectomy Ankle fusion right, x2 Shoulder surgery x2 Back surgery x3 including 2 laminectomies and one fusion Total knee arthroplasty Tonsillectomy Carpal tunnel release Social History: History Social History Marital Status: Spouse Name: N/A Number of Children: N/A Years of Education: N/A Social History Main Topics Smoking status: Never Smoker Smokeless tobacco: Never Used Alcohol Use: No Drug Use: No Sexually Active: None Other Topics Concern None Social History Narrative None Allergies: Allergies Allergen Reactions Iodine IV Iodine Meperidine Morphine Medications: Outpatient Encounter Prescriptions as of 09/29/2012 Medication Sig Dispense Refill metFORMIN (GLUCOPHAGE) 500 mg tablet Take 500 mg by mouth 2 times daily. BD PEN NEEDLE DONELL U/F 32G X 4 MM MISC glucose blood test strips (ONE TOUCH ULTRA TEST) strip Use to test blood sugar 4 true es daily. 100 each 3 doxazosin (CARDURA) 4 mg tablet Take 4 mg by mouth 2 times daily. testosterone (ANDROGEL) 50 mg/5 g (1%) gel Inject 200 mg of testosterone into the muscl e Daily. Every three weeks. atenolol (TENORMIN) 100 MG tablet Take 100 mg by mouth 2 times daily. albuterol-ipratropium (DUONEB) 2.5-0.5 mg/3 mL SOLN Take 3 mLs by nebulization. allopurinol (ZYLOPRIM) 100 mg tablet Take 200 mg by mouth Daily. lisinopril (PRINIVIL, ZESTRIL) 10 mg tablet Take 10 mg by mouth Daily. acetaminophen (TYLENOL) 650 MG CR tablet Take 650 mg by mouth every 8 hours as needed. atorvaSTATin (LIPITOR) 20 mg tablet Take 20 mg by mouth Daily. amLODIPine (NORVASC) 5 mg tablet Take 5 mg by mouth Daily. fluticasone (FLONASE) 50 mcg/nasal spray 2 sprays by Nasal route Daily. @ sprays in eac h nostril daily 16 g 12 Review of Systems Constitutional: Denies fever, chills, sweats, and change in weight. Sleep: He is wearing the oxygen and occasionally snores. Eyes: Denies vision change and eye irritation. ENT: Denies earache, decreased hearing, nasal congestion, nosebleeds, sore throat, and ho arseness. Resp: See HPI. CV: Denies chest pain, palpitations, syncope. Some right ankle edema. GI: Denies nausea, vomiting, and abdominal pain. : Denies difficulty emptying bladder and nocturia. Musculoskeletal: Denies joint pain/stiffness, joint swelling, and muscle cramps. Objective BP 130/80 | Pulse 69 | Ht 1.753 m (5' 9.02") | Wt 102.649 kg (226 lb 4.8 oz) | BMI 33.40 kg /m2 | SpO2 98% General Appearance: Alert, cooperative, no distress, appears stated age Head: Normocephalic, without obvious abnormality, atraumatic Eyes: PERRL, conjunctiva clear, no scleral icterus, EOM's intact Ears: Normal TM's, external auditory canals, and acuity Nose: Nares normal, septum midline, mucosa remains edematous with some turbinate hypertroph y but no drainage Mouth: No oral lesions or exudate Neck: Supple, symmetrical, no adenopathy Lungs: No accessory muscle use, breath sounds are somewhat diminished bilaterally, no whe ezes, crackles or rhonchi Chest Wall: No deformity Heart: Regular rate and rhythm, no murmur, rub or gallop Abdomen: Soft, non-tender, non-distended Extremities: No cyanosis, clubbing, trace edema Pulses: Radial pulses 1+ and symmetric Skin: Warm and dry Lymph nodes: Cervical and supraclavicular nodes normal Data: Labs reviewed. Fasting blood sugar was 110. HgBA1C was 5.1. Chest x-ray was done prior to clinic today and was reviewed and interpreted in clinic today . It shows continued clearing, but with a persistent linear scar. Immunization History Administered Date(s) Administered INFLUENZA, PRESERVATIVE FREE IM 05/25/2012 Pneumococcal (Adult) 06/23/2002, 07/21/2012 Assessment /Plan Mr. 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 Diagnoses and associated orders for this visit: Boop (bronchiolitis obliterans with organizing pneumonia) His x-ray continues to clear and he continues to improve clinically off the prednisone. We will check back in 6 months to ensure he continues to improve and consider follow up chest C T at that time. - XR Chest PA and Lateral; 6 months Nocturnal hypoxemia He remains on nocturnal oxygen at this time. 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 He is not ve ry interested in a sleep study and they feel he snores very little at this point. We will co ntinue the oxygen for now, and consider reevaluation at next visit. Diabetes mellitus He has a fasting blood sugar of 1110 and a hemoglobin A1C of 5.1 on metformin. Their feelin g was that Dr. Deal wanted me to manage this. I recommended stopping the metformin a wee k before his next blood draw, checking his blood sugars periodically and then doing a fastin g blood sugar at his next blood draw. If it is less than 121, he can stop the metformin for now. - Glucose, Fasting; with next lab draw He was advised to call if new pulmonary symptoms were to develop. Return to clinic in 6 months, with check of fasting blood sugar prior to then to determine if we need to stop metformin. CC: Jona Deal MD Portions of this report were transcribed using voice recognition software. Every effort wa s made to ensure accuracy; however, inadvertent computerized prosthetic assistant errors may be pre sent. documented in t his encounter Plan of Treatment +--------+---------+ + + + | Date | Type | Specialty | Care Team | Description | +--------+---------+ + + + | 12/25/ | Office | Urology | Kiko Garrido, | | | 2019 | Visit | | MD Jorge [address] | | | | | | [place] | | | | | | [address] | | | | | | | | +--------+---------+ + + + | 01/12/ | Office | Neurology | Erica Nova | | | 2020 | Visit | | MD Sebastian [address] | | | | | | [place] | | | | | | [place] [address] | | | | | | [phone] | | | | | | | | +--------+---------+ + + + + +------+--------+ + + | Name | Type | Priori | Associated Diagnoses | Order Schedule | | | | ty | | | + +------+--------+ + + | Glucose, Fasting | Lab | Routin | Diabetes mellitus | 1 Occurrences | | | | e | ([facility]) | starting 09/29/2012 | | | | | | until 09/29/2013 | + +------+--------+ + + documented as of this encounter Results XR Chest PA and Lateral (04/01/2013 1:07 PM PDT) + + | Specimen | + + | | + + + + + | Narrative | Performed At | + + + | [facility] | [facility] | | Department [address] [place] [address] [place] | [facility] | | [ rep [address]] [ rep [facility] | | st zip] Signed | - IMAGING | | | | | Patient Name: RON SHELDON V Physician: | | | DOROTEO. : 1935 Age: 78 Sex: M Unit #: [id number] | | | Exam Date: 04/01/13 Location: [facility] | | | Report #: [id number] Page: | | | %(RAD)RES..mtdd.print.filter("pg") of %(RAD) | | | RES..mtdd.print.filter("tpg") | | | | | | Accession Number: [id number] | | | CHEST X-RAY CLINICAL HISTORY: FOLLOWUP OF BOOP. | | | COMPARISON: Numerous previous chest x-rays, most recently 09/29/2012. | | | FINDINGS: Again seen are diffuse reticulonodular | | | opacities of the bilateral lungs. Some thicker scarring is observed | | | in the right mid lung that has remained stable. Subtle focal scarring | | | is observed in the right mid lung as well just superior to this and | | | has remained stable. The cardiomediastinal silhouette is normal. The | | | aorta is tortuous. Moderate spondylosis is present of the thoracic | | | spine with bridging osteophytes. There are degenerative changes | | | involving the bilateral shoulders with some slight flattening of the | | | right humeral head that is better observed compared to prior studies. | | | IMPRESSION: 1. 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 2. DEGENERATIVE CHANGES | | | OF BOTH SHOULDERS WITH SOME FLATTENING OF THE RIGHT HUMERAL HEAD THAT | | | IS BETTER APPRECIATED. THIS COULD POTENTIALLY REPRESENT AVASCULAR | | | NECROSIS. IF CLINICALLY INDICATED, DEDICATED X-RAYS OF THE RIGHT | | | SHOULDER COULD BE OBTAINED FOR FURTHER EVALUATION. COMMENT: | | | This information was conveyed to the office of Dr. Mae | | | Mike. Dictated Date/Time: 04/01/2013 13:07 | | | Transcribed Date/Time: 04/01/2013 13:30 Booking Clerk: | | | <<Signature on File>> | | | Mart | | | MD [place]04/01/13 [id number] <Electronically signed by Mart Boyle MD> | | | Mart Boyle MD 04/01/13 [id number] Booking Clerk: Cayetano | | | [email or web address]/11/13 4571 Carmelita Mckeon MD | | | | | + + + + + + + + | Performing | Address | City/State/Zipcode | Phone Number | | Organization | | | | + + + + + | [facility] | [address] 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
--- OUTSIDE RECORDS SUMMARY | ~2019-12-20 | XMS | Encounter Summary ---
Demographics + + + | Address | [address] | | | [place] [address] | + + + | Home Phone | | + + + | Preferred Language | Unknown | + + + | Marital Status | | + + + | Mu-Ism Affiliation | 1013 | + + + | Race | Unknown | + + + | Ethnic Group | Unknown | + + + Author + + + | Author | [facility] | | | and [place] | + + + | Organization | [facility] | | | [...] | | | | | [place] [address] | | + + + + + | Melissa Daley | ECON | [address] | | | | | [place] [address] | | + + + + + Care Team Providers + +------+ + | Care Digital Experience Manager Name | Role | Phone | + +------+ + PCP | Unavailable | + +------+ + Encounter Details +--------+ + + + + | Date | Type | Department | Care Team | Description | +--------+ + + + + | 10/18/ | Hospital | [facility] | Unknown, | | | 1992 | Encounter | MED CTR XRAY [address] | MD [place] . | | | | | [place] | | | | | | [place] [address] | (Fax) | | | | | [phone] | | | +--------+ + + + + Social History + +-------+ +--------+------+ | Tobacco Use | Types | Packs/Day | Years | Date | | | | | Used | | + +-------+ +--------+------+ | Never Assessed | | | | | + +-------+ +--------+------+ + + + | Sex Assigned at | Date Recorded | | | | + + + | Not on file | | + + + documented as of this encounter Plan of Treatment +--------+---------+ + + + | Date | Type | Specialty | Care Team | Description | +--------+---------+ + + + | 12/25/ | Office | Urology | Kiko Garrido, | | | 2019 | Visit | | MD Jorge A [address] | | | | | | [place] | | | | | | [address] | | | | | | | | +--------+---------+ + + + | 01/12/ | Office | Neurology | Erica Nova | | | 2019 | Visit | | MD Sebastian [address] | | | | | | [place] | | | | | | [place] [address] | | | | | | [phone] | | | | | | | | +--------+---------+ + + + documented as of this encounter Visit Diagnoses Not on filedocumented in this encounter"
--- OUTSIDE RECORDS SUMMARY | ~2019-12-20 | XMS | Encounter Summary ---
Demographics + + + | Address | [address] | | | [place] [address] | + + + | Home Phone | | + + + | Preferred Language | Unknown | + + + | Marital Status | | + + + | Episcopal Affiliation | 1013 | + + + | Race | Unknown | + + + | Ethnic Group | Unknown | + + + Author + + + | Author | [facility] | | | and [place] | + + + | Organization | [facility] | | | [...] | | | | | [place] [address] | | + + + + + | Melissa Daley | ECON | [address] | | | | | [place] [address] | | + + + + + Care Team Providers + +------+ + | Care Marketing Project Manager Name | Role | Phone | + +------+ + | Bunny Corcoran | PCP | | | MD | | | + +------+ + Reason for Visit + + + | Reason | Comments | + + + | Medication Refill | | + + + Encounter Details +--------+--------+ + + + | Date | Type | Department | Care Team | Description | +--------+--------+ + + + | 12/21/ | Refill | [facility] | Mike, | Medication Refill | | 2012 | | PULMONARY [address] | Carmelita Penny MD | | | | | [place], | | | | | | [place] [address] | | | | | | [phone] | | | +--------+--------+ + + + Social History + +-------+ [...] | | 2019 | Visit | | [address] | | | | | | [place] | | | | | | [address] | | | | | | | | +--------+---------+ + + + | 01/12/ | Office | Neurology | Erica Nova | | | 2019 | Visit | | MD Sebastian [address] | | | | | | [place] | | | | | | [place] [address] | | | | | | [phone] | | | | | | | | +--------+---------+ + + + documented as of this encounter Visit Diagnoses Not on filedocumented in this encounter Additional Health Concerns + + + + + | Infection | Onset Date | Last Indicated | Resolved Time | + + + + + | Rule out COVID-19 | 12/15/2019 | 12/15/2019 | 12/15/2019 5:40 PM | | | | | PDT | + + + + + documented as of this encounter"
--- OUTSIDE RECORDS SUMMARY | ~2019-12-20 | XMS | Encounter Summary ---
Demographics + + + | Address | [address] | | | [place] [address] | + + + | Home Phone | | + + + | Preferred Language | Unknown | + + + | Marital Status | | + + + | Mormon Affiliation | 1013 | + + + | Race | Unknown | + + + | Ethnic Group | Unknown | + + + Author + + + | Author | [facility] | | | and [place] | + + + | Organization | [facility] | | [...] | | | | | [place] [address] | | + + + + + | Melissa Daley | ECON | [address] | | | | | [place] [address] | | + + + + + Care Team Providers + +------+ + | Care Rocket Motor Mechanic Name | Role | Phone | + +------+ + | Jona Deal MD | PCP | | + +------+ + Reason for Visit +--------+--------+ + | Reason | Onset | Comments | | | Date | | +--------+--------+ + | Other | 07/01/ | | | | 2012 | | +--------+--------+ + Encounter Details +--------+ + + + + | Date | Type | Department | Care Team | Description | +--------+ + + + + | 07/01/ | Telephone | [facility] [place] | Marci Mcneal, | Other | | 2012 | | PULMONARY [address] | RN | | | | | [place], | | | | | | [place] [address] | | | | | | [phone] | | | +--------+ + + + [...] this encounter Miscellaneous Notes Telephone Encounter - Marci Mcneal RN - 07/02/2012 11:24 AM PSTThis message was relay ed to Ron on 06/24/12 and again today. Okay per Ron. elephone Encounter - Carmelita Mckeon MD - 2012 3:24 PM PSTResult note routed to you on 06/24 noting that chest x-ray was improved. Han martinez reference that report. Thanks. Electronically signed by Carmelita Mckeon MD at 07/01 3:24 PM PSTTelephone Encounter - Marci Mcneal RN - 07/01/2012 2:29 PM PSTMrs. Rhinhart called asking for results of Ron's CXR. documented in this encounter Plan of Treatment +--------+---------+ + + + | Date | Type | Specialty | Care Team | Description | +--------+---------+ + + + | 12/25/ | Office | Urology | Kiko Garrido, | | 2019 | Visit | | [address] | | | | | | [place] | | | | | | [address] | | | | | | | | +--------+---------+ + + + | 01/12/ | Office | Neurology | Erica Nova | | 2019 | Visit | | MD Sebastian [address] | | | | | | [place] | | | | | | [place] [address] | | | | | | [phone] | | | | | | | | +--------+---------+ + + + documented as of this encounter Visit Diagnoses Not on filedocumented in this encounter"
--- OUTSIDE RECORDS SUMMARY | ~2019-12-20 | XMS | Encounter Summary ---
Demographics + + + | Address | [address] | | | [place] [address] | + + + | Home Phone | | + + + | Preferred Language | Unknown | + + + | Marital Status | | + + + | Scientologist Affiliation | 1013 | + + + [...] | | | | | [place] [address] | | + + + + + | Melissa Daley | ECON | [address] | | | | | [place] [address] | | + + + + + Care Team Providers + +------+ + | Care Vehicle Body Builder Name | Role | Phone | + +------+ + PCP | Unavailable | + +------+ + Encounter Details +--------+ + + + + | Date | Type | Department | Care Team | Description | +--------+ + + + + | 02/24/ | Hospital | [facility] | Rakesh Ruiz MD | | | 1999 | Encounter | MED CTR GENERIC OP | [address], [place] | | | | | CONV DEPT [address] | [address] [place], [place] | | | | | [place], | [address] | | | | | [place] [address] | | | | | | [phone] | | | +--------+ + + + [...] [place] | | | | | | [address] | | | | | | | | +--------+---------+ + + + | 01/12/ | Office | Neurology | Erica Nova | | | 2019 | Visit | | MD Sebastian [address] | | | | | | [place] | | | | | | [place] [address] | | | | | | [phone] | | | | | | | | +--------+---------+ + + + documented as of this encounter Visit Diagnoses Not on filedocumented in this encounter"
--- OUTSIDE RECORDS SUMMARY | ~2019-12-20 | XMS | Encounter Summary ---
Demographics + + + | Address | [address] | | | [place] [address] | + + + | Home Phone | | + + + | Preferred Language | Unknown | + + + | Marital Status | | + + + | Congregational Affiliation | 1013 | + + + | Race | Unknown | + + + | Ethnic Group | Unknown | + + + Author + + + | Author | [facility] | | | and [place] | + + + | Organization | [facility] | | | and [...] | | | | | [place] [address] | | + + + + + | Melissa Daley | ECON | [address] | | | | | [place] [address] | | + + + + + Care Team Providers + +------+ + | Care Bog Worker Name | Role | Phone | + +------+ + PCP | Unavailable | + +------+ + Encounter Details +--------+ + + + + | Date | Type | Department | Care Team | Description | +--------+ + + + + | 09/19/ | Hospital | [facility] | Rakesh Ruiz MD | | | 2005 | Encounter | MED CTR GENERIC OP | [address], [place] | | | | | CONV DEPT [address] | [address] [place], [place] | | | | | [place], | [address] | | | | | [place] [address] | | | | | | [phone] | | | +--------+ + + + [...] [place] | | | | | | [id number] | | | | | | | | +--------+---------+ + + + | 01/12/ | Office | Neurology | Erica Nova | | | 2019 | Visit | | MD Sebastian [address] | | | | | | [place] | | | | | | [place] [address] | | | | | | [phone] | | | | | | | | +--------+---------+ + + + documented as of this encounter Visit Diagnoses Not on filedocumented in this encounter"
--- OUTSIDE RECORDS SUMMARY | ~2019-12-20 | XMS | Encounter Summary ---
Demographics + + + | Address | [address] | | | [place] [address] | + + + | Home Phone | | + + + | Preferred Language | Unknown | + + + | Marital Status | | + + + | Samaritan Affiliation | 1013 | + + + | Race | Unknown | + + + | Ethnic Group | Unknown | + + + Author + + + | Author | [facility] | | | and [place] | + + + | Organization | [facility] | | | [...] | | | | | [place] [address] | | + + + + + | Melissa Daley | ECON | [address] | | | | | [place] [address] | | + + + + + Care Team Providers + +------+ + | Care Photo Editor Name | Role | Phone | + +------+ + PCP | Unavailable | + +------+ + Encounter Details +--------+ + + + + | Date | Type | Department | Care Team | Description | +--------+ + + + + | 10/10/ | Hospital | [facility] | Rakesh Ruiz MD | | | 2008 | Encounter | MED CTR GENERIC OP | [address], [place] | | | | | CONV DEPT [address] | [address] [place], [place] | | | | | [place], | [address] | | | | | [place] [address] | | | | | | [phone] | | | +--------+ + + + [...] 12/25/ | Office | Urology | Kiko Garirdo, | | | 2019 | Visit | | [address] | | | | | | [place] | | | | | | [id number] | | | | | | | | +--------+---------+ + + + | 01/12/ | Office | Neurology | Erica Nova | | | 2019 | Visit | | MD Sebastian [address] | | | | | | [place] | | | | | | [place] [address] | | | | | | [phone] | | | | | | | | +--------+---------+ + + + documented as of this encounter Visit Diagnoses Not on filedocumented in this encounter"
--- OUTSIDE RECORDS SUMMARY | ~2019-12-20 | XMS | Encounter Summary ---
Demographics + + + | Address | [address] | | | [place] [address] | + + + | Home Phone | | + + + | Preferred Language | Unknown | + + + | Marital Status | | + + + | Jewish Affiliation | 1013 | + + + | Race | Unknown | + + + | Ethnic Group | Unknown | + + + Author + + + | Author | [facility] | | | and [place] | + + + | Organization | [facility] | | [...] | | | | | [place] [address] | | + + + + + | Melissa Daley | ECON | [address] | | | | | [place] [address] | | + + + + + Care Team Providers + +------+ + | Care Hatch Supervisor Name | Role | Phone | + +------+ + | Jona Deal MD | PCP | | + +------+ + Reason for Visit +---------+--------+ + | Reason | Onset | Comments | | | Date | | +---------+--------+ + | Results | 04/29/ | nocturnal oximetry | | | 2012 | | +---------+--------+ + Encounter Details +--------+ + + + + | Date | Type | Department | Care Team | Description | +--------+ + + + + | 04/29/ | Telephone | [facility] | Marci Mcneal, | Results (nocturnal | | 2012 | | PULMONARY [address] | RN | oximetry) | | | | [place], | | | | | | [place] [address] | | | | | | [phone] | | | +--------+ + + + [...] encounter Miscellaneous Notes Telephone Encounter - Marci Mcneal, JUANCARLOS - 04/29/2013 10:53 AM PSTCalguanaco Velasquez and advis ed per Dr Fabian that he technically still meets criteria for oxygen at night but just b rasheeda. Okay per patient. documented in this encounter Plan of Treatment +--------+---------+ + + + | Date | Type | Specialty | Care Team | Description | +--------+---------+ + + + | 12/25/ | Office | Urology | Kiko Garrido, | | 2019 | Visit | | [address] | | | | | | [place] | | | | | | [address] | | | | | | | | +--------+---------+ + + + | 01/12/ | Office | Neurology | Erica Nova | | 2019 | Visit | | MD Sebastian [address] | | | | | | [place] | | | | | | [place] [address] | | | | | | [phone] | | | | | | | | +--------+---------+ + + + documented as of this encounter Visit Diagnoses Not on filedocumented in this encounter"
--- OUTSIDE RECORDS SUMMARY | ~2019-12-20 | XMS | Encounter Summary ---
Demographics + + + | Address | [address] | | | [place] [address] | + + + | Home Phone | | + + + | Preferred Language | Unknown | + + + | Marital Status | | + + + | Spiritism Affiliation | 1013 | + + + | Race | Unknown | + + + | Ethnic Group | Unknown | + + + Author + + + | Author | [facility] | | | and [place] | + + + | Organization | [facility] | | | [...] | | | | | [place] [address] | | + + + + + | Melissa Daley | ECON | [address] | | | | | [place] [address] | | + + + + + Care Team Providers + +------+ + | Care Cocoa Mill Operator Name | Role | Phone | + +------+ + | Jona Deal MD | PCP | | + +------+ + Reason for Visit + + + | Reason | Comments | + + + | New Patient | PVD | + + + Evaluate & Treat (Routine) +--------+--------+ + + + + | Status | Reason | Specialty | Diagnoses / | Referred By | Referred To | | | | | Procedures | Contact | Contact | +--------+--------+ + + + + | Closed | | General | Diagnoses | Nilo, | , | | | | Surgery | Peripheral | Bunny | Alex Dai, | | | | | vascular | MD Drew | , FACS [address] | | | | | disease, | [address] | | | | | unspecified | Elvi Henriquez | [place], | | | | | ([facility]) | [place], | [place] [address] | | | | | Procedures | [place] | Phone: | | | | | CT OFFICE | [address] | [phone] | | | | | OUTPATIENT | Phone: | Fax: | | | | | NEW 45 | [phone] | [phone] | | | | | [employer] [address] | Fax: | | | | | | | [phone] | | +--------+--------+ + + + + Encounter Details +--------+---------+ + + + | Date | Type | Department | Care Team | Description | +--------+---------+ + + + | 06/08/ | Office | [facility] | Alex Nam | Neurogenic | | 2017 | Visit | SURGERY [address] | MD Malaika, FACS [address] | | | | [address] [place], [place] | [address] [facility] | (Primary Dx) | | | | [address] | [place] [address] | | | | | [phone] | [phone] | | | | | | | | +--------+---------+ + + + Social History [...] + + + documented in this encounter Progress Notes Alex Nam MD, FACS - 06/08/2017 2:20 PM PSTFormatting of this note might be diff erent from the original. Vascular Surgery Consult Note HISTORY OF PRESENT ILLNESS Ron Daley is a 82 y.o. male patient of Jona Deal MD here today. Is here with his . ( daughter is Katie Yusuf). Physician notes: Patient arrives to consult on PVD. Patient reports pain in bilateral legs. States his legs hurt a lot and if he is on them for long periods of time in the morning, by noon he can hardly get in the house. Patient report s RIGHT greater then LEFT ankle pain. Patient states pain started to get worse about 6 year s ago. Has hd two back surgeries in the past. Patient reports previous RIGHT ankle fusion 8 years ago. His Orthopedic surgeon was Dr. Nahun vang in [place]. Reports he did his total knees. And ? Fused his right ankle. Noy ent has not seen him regarding his LEFT ankle pain. Dr. Ruggiero would not do anything mo re for the RIGHT ankle. States his RIGHT ankle swells in the day but goes down in the night. Saw a foot doctor which recommended different shoes and liners which helped. Patient is unable to stand for long periods of time. States Just standing up his legs and b ack hurt. states he does his personal hygiene sitting down due to his back pain. He rep orts a prior back fusion and 2 laminectomies. States he is able to walk 300-400 ft before his feet start to hurt. He then has to sit befo re continuing. Worse pain is in his feet and back. Denies nocturnal pain in legs. Patient s leeps in a bed. Reports occasional tingling and numbness in his toes. CARDIAC: Denies NH, chest pain or tightness. RISK: Never smoker, Denies diabetes. 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 RIGHT: 1.12 LEFT 1.19 NOTES: Bilateral waveforms and numeric values suggest that the patient is at low risk for signific ant peripheral vascular disease. RENAL: BUN/Cr Lab Results Component Value Date BUN 26 (H) 05/24/2012 Lab Results Component Value Date CREA 1.06 05/24/2012 Jona Deal MD's notes were reviewed in clinic today. 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) Carpal tunnel syndrome Cataract Colon polyps Cough Diabetes mellitus, type 2 (HCC) Diverticulosis Dyslipidemia Gastro-esophageal reflux disease with esophagitis Gout Hyperlipidemia Hyperlipoproteinemia Hyperlipoproteinemia Type-Ii-a Hypertension Intermittent claudication (HCC) Nephrolithiasis recurrent, calcium oxalate crystals Osteoarthritis Sinus infection Walking pneumonia Past Surgical History: Procedure Laterality Date ANKLE FUSION Right right, x2 APPENDECTOMY age 8 BACK SURGERY x3 including 2 laminectomies and one fusion CARPAL TUNNEL RELEASE Right 2016 CHOLECYSTECTOMY 1985 COLONOSCOPY Kidney Stones Removed KNEE JOINT REPLACEMENT Left 1992 SHOULDER SURGERY x2 TONSILLECTOMY TOTAL KNEE ARTHROPLASTY Right 1995 Allergies Allergen Reactions Iodine IV Iodine Meperidine Morphine Medications: Outpatient Encounter Prescriptions as of 06/08/2017 Medication Sig Dispense Refill allopurinol (ZYLOPRIM) 100 mg tablet Take 100 mg by mouth Daily. amLODIPine (NORVASC) 5 mg tablet Take 2.5 mg by mouth Daily. aspirin 325 mg tablet Take 325 mg by mouth Daily. [DISCONTINUED] atenolol (TENORMIN) 100 MG tablet Take 50 mg by mouth 2 times daily. atenolol (TENORMIN) 50 mg tablet Take 1 tablet by mouth 2 times daily. 0 atorvaSTATin (LIPITOR) 40 mg tablet Take 20 mg by mouth nightly. 0 doxazosin (CARDURA) 8 MG tablet take 1/2 tablet by mouth twice a day 0 pantoprazole (PROTONIX) 40 mg tablet Take 40 mg by mouth Daily. 0 No facility-administered encounter medications on file as of 06/08/2017. Family History Problem Relation Age of Onset Heart attack Father Kidney disease Sister Other (see comment) Sister hemodialysis Hypertension Sister Diabetes Sister Social History: He reports that he has never smoked. He has never used smokeless tobacco. He reports that h e does not drink alcohol or use drugs. REVIEW OF SYSTEMS General: []Weight loss/gain (over 10 lbs) []Fever/chills []Night sweats Hematologic: []Bleeding/brusing tendencies []Blood transfusion []Anemia Heent: [x]Vision loss [x]Hearing loss []Sinus problems/nose bleeds []Hoarseness Respiratory: []Wheezing [x]Shortness of breath []Cough []Spitting up blood []On oxygen []Use CPAP machine Cardiac: []Chest pain []Palpitations/heart racing []Swelling of ankles/hands []Unusual shortness of breath []Difficulty sleeping flat Gastrointestinal: []Nausea/vomiting []Difficulty swallowing []Heartburn []Loss of appetite []Abdominal pain []Stomach Ulcers []Diarrhea []Constipation []Kofi k or bloody stools Vascular: []Nicole/TIAs []Fainting []Difficulty with speech []Leg cramps [x]Pain in feet/legs at rest []Foot ulcers/s ores []Varicose veins []Phlebitis/blood clots Musculoskeletal: [x]Joint stiffness/swelling [x]Join pain [x]Back pain [x]Arthritis []Gout Urologic: []Blood in urine [x]Frequent urination at night []Burning/painful urination [x]Kidney stones []Difficulty urination []Sexual difficulties Neuro/Psychiatric: []Headaches []Seizures []Depression []Anxiety attacks []Memory loss or confusion PHYSICAL EXAM Vitals: 06/08/17 1416 BP: 142/86 Pulse: 66 Resp: 18 Temp: 37.1 C (98.8 F) TempSrc: Temporal SpO2: 95% Weight: 109.5 kg (241 lb 6.5 oz) Height: 1.753 m (5' 9") Body mass index is 35.65 kg/m. General Appearance: Alert, cooperative, no distress, appears stated age Head: Normocephalic, without obvious abnormality Eyes: PERRL, conjunctiva/corneas clear, EOM's intact, vision adequate bilateral Ears: Adequate hearing Nose: No visible lesions Throat: Lips, mucosa, and tongue normal; teeth and gums normal Neck: Supple, symmetrical, no adenopathy, no neck bruits Lungs: Breath sounds are clear to auscultation bilaterally, no wheezes or crackles. Chest Wall: No tenderness or deformity, no pacemaker Heart: Regular rate and rhythm, S1, S2 normal, no murmur. Abdomen: Soft, non-tender, flat, no hernia in supine position.No abdominal bruits RIGHT subcostal scar, RIGHT perimedian scar Extremities: Extremities normal, atraumatic, no cyanosis, clubbing, or edema RIGHT anterior knee and RIGHT anterior ankle scar. Palpable Pulses*: Femoral Popliteal Dorsalis pedis Post tibial LEFT 2+ 2 0 2 RIGHT 2+ 1-2 0 2+ Doppler Pulses: LEFT absent strong RIGHT Absent. strong Neurologic: Cranial nerves II-XII grossly intact, face symmetric, tongue protrudes midline Equal pmo consultant and plantar flexion, no pronator drift, Gait normal Deep tendon reflexes--quadriceps 2/5 and symmetric. Lab Results Component Value Date NA 133 (L) 05/24/2012 K 4.4 05/24/2012 CL 104 05/24/2012 CO2 22 (L) 05/24/2012 BUN 26 (H) 05/24/2012 CREA 1.06 05/24/2012 Lab Results Component Value Date WBC 8.3 05/24/2012 HGB 15.3 05/24/2012 HCT 44.5 05/24/2012 MCV 102.2 (H) 05/24/2012 PLT 179 (A) 05/24/2012 Assessment /Plan 1. Neurogenic claudication Patient with essentially normal pulses today. Suspect leg pains are due mainly to Neuroge chhaya claudication and arthritis of ankles. Recommend patient consult with physiatry ( Dr. Cj Mckinley) . To keep the paper work barbara t, will ask Primary Care to put in this referral. Patient to follow with primary care and physiatry. I will be available should his conditi on change. I appreciate having been involved in the care of this patient. Alex Nam MD, FACS Vascular and General Surgery I Lisseth Santo am acting as a scribe on behalf of, and in the presence of Alex mccracken MD, FACS. I have reviewed and edited this note. Lisseth Santo CMA 06/08/17 Alex Dai MD, FACS, personally performed the services described in this docume ntation, as scribed by Lisseth Santo CMA in my presence, and it is both accurate and complet e. Lisseth Santo CMA 06/08/2017 14:49 CC: Jona Deal MDElectronically signed by Alex Nam MD, FACS at 2016 4:02 PM PSTdocumented in this encounter Plan of Treatment +--------+---------+ + + + | Date | Type | Specialty | Care Team | Description | +--------+---------+ + + + | 12/25/ | Office | Urology | Kiko Garrido, | | | 2019 | Visit | | [address] | | | | | | [place] | | | | | | [address] | | | | | | | | +--------+---------+ + + + | 01/12/ | Office | Neurology | Erica Nova | | | 2019 | Visit | | MD Sebastian [address] | | | | | | [place] | | | | | | [place] [address] | | | | | | [phone] | | | | | | | | +--------+---------+ + + + documented as of this encounter Procedures + +--------+ + + + | Procedure Name | Priori | Date/Time | Associated Diagnosis | Comments | | | ty | | | | + +--------+ + + + | DIAGNOSTIC REPORT - | | 05/05/2017 | | Results for this | | EXTERNAL SCAN | | 12:00 AM | | procedure are in the | | | | PST | | results section. | + +--------+ + + + documented in this encounter Results DIAGNOSTIC REPORT - EXTERNAL SCAN (05/05/2017 12:00 AM PST) + + + | Narrative | Performed At | + + + | Ordered by an | | | unspecified provider. | | + + + documented in this encounter Visit Diagnoses + + | Diagnosis | + + | Neurogenic claudication - Primary Spinal stenosis, lumbar region, with neurogenic | | claudication | + + documented in this encounter
--- OUTSIDE RECORDS SUMMARY | ~2019-12-20 | XMS | Encounter Summary ---
Demographics + + + | Address | [address] | | | [place] [address] | + + + | Home Phone | | + + + | Preferred Language | Unknown | + + + | Marital Status | | + + + | Protestant Affiliation | 1013 | + + + | Race | Unknown | + + + | Ethnic Group | Unknown | + + + Author + + + | Author | [facility] | | | and [place] | + + + | Organization | [facility] | | | [...] | | | | | [place] [address] | | + + + + + | Melissa Daley | ECON | [address] | | | | | [place] [address] | | + + + + + Care Team Providers + +------+ + | Care Aerial Survey Technician Name | Role | Phone | + [...] | | | | | | [place] [address] | | | | | | [phone] | | | +--------+ + + + [...] P M PDTTelephone Encounter - Marci Mcneal, RN - 04/05/2013 3:09 PM PDTCalled Ron at [...] [place] | | | | | | [id number] | | | | | | | | +--------+---------+ + + + | 01/12/ | Office | Neurology | Erica Nova | | 2019 | Visit | | MD Sebastian [address] | | | | | | [place] | | | | | | [place] [address] | | | | | | [phone] | | | | | | | | +--------+---------+ + + + documented as of this encounter Visit Diagnoses Not on filedocumented in this encounter"
--- OUTSIDE RECORDS SUMMARY | ~2019-12-20 | XMS | Encounter Summary ---
Demographics + + + | Address | [address] | | | [place] [address] | + + + | Home Phone | | + + + | Preferred Language | Unknown | + + + | Marital Status | | + + + | Baptist Affiliation | 1013 | + + + | Race | Unknown | + + + | Ethnic Group | Unknown | + + + Author + + + | Author | [facility] | | | and [place] | + + + | Organization | [facility] | | | [...] | | | | | [place] [address] | | + + + + + | Melissa Daley | ECON | [address] | | | | | [place] [address] | | + + + + + Care Team Providers + +------+ + | Care Supervisor Plate Pasting Name | Role | Phone | + +------+ + | Jona Deal MD | PCP | | + +------+ + Reason for Visit + + + | Reason | Comments | + + + | Hand Problem | Hand & Ankle Pain ONSET Several Months | + + + Self-referral (Routine) +--------+--------+ + + + + | Status | Reason | Specialty | Diagnoses / | Referred By | Referred To | | | | | Procedures | Contact | Contact | +--------+--------+ + + + + | Closed | | Orthopedic | Diagnoses | | Philip, | | | | Surgery | Pain in | | Donnie Summers MD | | | | | left hand | | [address] | | | | | | | [place] | | | | | | | [place] [address] | | | | | | | Phone: | | | | | | | [phone] | | | | | | | Fax: | | | | | | | [phone] | +--------+--------+ + + + + Encounter Details +--------+---------+ + + + | Date | Type | Department | Care Team | Description | +--------+---------+ + + + | 03/05/ | Office | [facility] | Donnie Palacios, | Primary | | 2017 | Visit | ORTHOPEDIC SURGERY | [address] | osteoarthritis of | | | | [address] [place] | [place] | left wrist (Primary | | | | [place] | [address] | Dx); Arthritis of | | | | [address] | | carpometacarpal | | | | [phone] | | (CMC) joint of left | | | | | | thumb | +--------+---------+ + + + Social History [...] + + + | Blood Pressure | - | - | | + + + + + | Pulse | - | - | | + + + + + | Temperature | 36.5 C (97.7 F) | 03/05/2017 9:42 AM | | | | | PDT [...] + documented in this encounter Progress Notes Donnie Palacios MD - 03/05/2017 10:00 AM PDTPatient presents with a new complaint of left hand pain He states it started 6 months ago He didn't injure that he is noted that with certain positions of reaching it would become a wkward as he would get a sharp pain and spasm on the ulnar side of his wrist The symptoms are very intermittent and mild As soon as he stops doing whatever aggravates it the symptoms go away On physical exam he has a well-healed carpal tunnel release scar He has 30 of wrist dorsiflexion and about 30 forward flexion He has full pronation and supination He has obvious prominence and subluxation of his first CMC joint with mild tenderness to ax ial loading He doesn't have full palmar abduction or flexion as a result of his first CMC arthrosis 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 digits No hyperextension of the thumb MP joint I used the C-arm to image his left hand and wrist 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 The natural history and treatment options are discussed at length on today's visit Overall my advice to him is to continue to cope with this the best he can Since his symptoms are largely tolerable I don't think he would appreciate the limitations of a wrist fusion He was appreciative of today's visit and will let us know if he has further symptoms progre ssion documented in thi s encounter Plan of Treatment +--------+---------+ + + + | Date | Type | Specialty | Care Team | Description | +--------+---------+ + + + | 12/25/ | Office | Urology | Kiko Garrido, | | | 2019 | Visit | | MD [address] | | | | | | [place] | | | | | | [address] | | | | | | | | +--------+---------+ + + + | 01/12/ | Office | Neurology | Erica Nova | | | 2019 | Visit | | MD Sebastian [address] | | | | | | [place] | | | | | | [place] [address] | | | | | | [phone] | | | | | | | | +--------+---------+ + + + documented as of this encounter Visit Diagnoses + + | Diagnosis | + + | Primary osteoarthritis of left wrist - Primary Primary localized osteoarthrosis, | | forearm | + + | 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
--- OUTSIDE RECORDS SUMMARY | ~2019-12-20 | XMS | Encounter Summary ---
Demographics + + + | Address | [address] | | | [place] [address] | + + + | Home Phone [...] | | | | | [place] [address] | | + + + + + | Melissa Daley | ECON | [address] | | | | | [place] [address] | | + + + + + Care Team Providers + +------+ + | Care Cushion Worker Name | Role | Phone | + +------+ + PCP | Unavailable | + +------+ + Encounter Details +--------+ + + + + | Date | Type | Department | Care Team | Description | +--------+ + + + + | 02/01/ | Hospital | [facility] | | | | 1991 | Encounter | MED CTR XRAY [address] | | | | | | [place] | | | | | | [place] [address] | | | | | | [phone] | | | +--------+ + + + [...] [place] | | | | | | [address] | | | | | | | | +--------+---------+ + + + | 01/12/ | Office | Neurology | Erica Nova | | 2019 | Visit | | MD Sebastian [address] | | | | | | [place] | | | | | | [place] [address] | | | | | | [phone] | | | | | | | | +--------+---------+ + + + documented as of this encounter Visit Diagnoses Not on filedocumented in this encounter"
--- OUTSIDE RECORDS SUMMARY | ~2019-12-20 | XMS | Encounter Summary ---
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 Call to have a box delivered by the [facility]. Wear the finger probe through the night. Do the test on room air. Call the [employer] to contreras ve the box picked up the following day. Try a [employer] Sinus Rinse for your nose once a day. documented in this encounter Progress Notes Carmelita Mckeon MD - 04/01/2013 11:18 AM PDTFormatting of this note might be differe nt from the original. Pulmonary Follow Up MD [facility] [address] [place], [address] HPI Ron Daley is a 78 y.o. 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 He had a fasting blood sugar on Thursday, and it was 103. He stopped the metformin on Thursday. He has been checking his blood sugars before supper and they have been 100-120. On the [facility] or, off the prednisone, he did have a [...] made to ensure accuracy; however, inadvertent computerized tobacco shaker errors may be pre sent. documented in t his encounter Procedure Notes JUSTICE CEDENO - 03/25/2013 12:00 AM PDTAssociated Order(s): LABS - EXTERNAL SCANElectron ically signed by Shaquille Villaseñor at 04/05/2013 10:42 AM PDTdocumented in this encounter Plan of Treatment +--------+---------+ + + + | Date | Type | Specialty | Care Team | Description | +--------+---------+ + + + | 07/06/ | Office | Urology | Kiko Garrido, | | | 2019 | Visit | | [address] | | | | | | [place] | | | | | | [address] | | | | | | | | +--------+---------+ + + + | 01/12/ | Office | Neurology | Erica Nova | | | 2019 | Visit | | MD Sebastian [address] | | | | | | [place] | | | | | | [place] [address] | | | | | | [phone] | | | | | | | [...] | BOOP (bronchiolitis obliterans with organizing pneumonia) ([facility]) - Primary Other | | specified alveolar and parietoalveolar pneumonopathies | + + | Nocturnal hypoxemia Hypoxemia | + + | Diabetes mellitus, type 2 ([facility]) Type II or unspecified type diabetes mellitus without | | mention of complication, not stated as uncontrolled | + + | Chronic rhinitis | + + documented in this encounter
--- OUTSIDE RECORDS SUMMARY | ~2019-12-20 | XMS | Encounter Summary ---
Demographics + + + | Address | [address] | | | [place] [address] | + + + | Home Phone | | + + + | Preferred Language | Unknown | + + + | Marital Status | | + + + | Mandaen Affiliation | 1013 | + + + | Race | Unknown | + + + | Ethnic Group | Unknown | + + + Author + + + | Author | [facility] | | | and [place] | + + + | Organization | [facility] | | | and [...] | | | | | [place] [address] | | + + + + + | Melissa Daley | ECON | [address] | | | | | [place] [address] | | + + + + + Care Team Providers + +------+ + | Care Attorney Recruiter Name | Role | Phone | + +------+ + | Jona Deal MD | PCP | | + +------+ + Reason for Visit +--------+--------+ + | Reason | Onset | Comments | | | Date | | +--------+--------+ + | Other | 07/30/ | | | | 2012 | | +--------+--------+ + Encounter Details +--------+ + + + + | Date | Type | Department | Care Team | Description | +--------+ + + + + | 07/30/ | Telephone | [facility] | Marci Mcneal, | Other | | 2012 | | PULMONARY [address] | RN | | | | | [place], | | | | | | [place] [address] | | | | | | [phone] | | | +--------+ + + + [...] Telephone Encounter - Marci Mcneal RN - 07/30/2012 12:03 PM PSTCalguanaco Velasquez and spoke with Mrs Daley. Advised per Dr Mckeon that Ron should continue wearing nocturnal O 2 at 1 l/m. Okay per Mrs. Daley. 13 12:04 PM PSTdocumented in this encounter Plan of Treatment +--------+---------+ + + + | Date | Type | Specialty | Care Team | Description | +--------+---------+ + + + | 12/25/ | Office | Urology | Kiko Garrido, | | | 2019 | Visit | | [address] | | | | | | [place] | | | | | | [address] | | | | | | | | +--------+---------+ + + + | 01/12/ | Office | Neurology | Erica Nova | | 2019 | Visit | | MD Sebastian [address] | | | | | | [place] | | | | | | [place] [address] | | | | | | [phone] | | | | | | | | +--------+---------+ + + + documented as of this encounter Visit Diagnoses Not on filedocumented in this encounter"
--- OUTSIDE RECORDS SUMMARY | ~2019-12-20 | XMS | Encounter Summary ---
Demographics + + + | Address | [address] | | | [place] [address] | + + + | Home Phone | | + + + | Preferred Language | Unknown | + + + | Marital Status | | + + + | Yarsani Affiliation | 1013 | + + + [...] | | | | | [place] [address] | | + + + + + | Melissa Daley | ECON | [address] | | | | | [place] [address] | | + + + + + Care Team Providers + +------+ + | Care Pan Devulcanizer Name | Role | Phone | + +------+ + PCP | Unavailable | + +------+ + Encounter Details +--------+ + + + + | Date | Type | Department | Care Team | Description | +--------+ + + + + | 02/23/ | Hospital | [facility] | | | | 1991 | Encounter | MED CTR XRAY [address] | | | | | | [place] | | | | | | [place] [address] | | | | | | [phone] | | | +--------+ + + + [...] | 2019 | Visit | | [address] | | | | | | [place] | | | | | | [address] | | | | | | | | +--------+---------+ + + + | 01/12/ | Office | Neurology | Eriac Nova | | 2019 | Visit | | MD Sebastian [address] | | | | | | [place] | | | | | | [place] [address] | | | | | | [phone] | | | | | | | | +--------+---------+ + + + documented as of this encounter Visit Diagnoses Not on filedocumented in this encounter"
--- OUTSIDE RECORDS SUMMARY | ~2019-12-20 | XMS | Clinical Summary ---
Demographics + + + | Address | [address] | | | [place] [address] | + + + | Home Phone | | + + + | Preferred Language | Unknown | + + + | Marital Status | | + + + | Denominational Affiliation | 1013 | + + + [...] | + + + + + | Katei Yusuf | ECON | [address] | | | | | [place] [address] | | + + + + + | Melissa Daley | ECON | [address] | | | | | [place] [address] | | + + + + + Care Team Providers + +------+ + | Care Housekeeping Coordinator Name | Role | Phone | + +------+ + | Bunny Corcoran | PCP | | | MD | | | + +------+ + Allergies + + + + + + | Active Allergy | Reactions | Severity | Noted | Comments | | | | | Date | | + + + + + + | Meperidine | | | 12/04/10 | | | | | | 12 | | + + + + + + | Iodine | | | 05/31/20 | IV Iodine | | | | [...] 40 mg | nightly. | | | 03/11 | | e | | tablet | [...] mg by mouth | | 0 | 04/23 | | Activ | | (PROTONIX) 40 mg | Daily. 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 | 2014 | | classifiable elsewhere | | + + + | Sleepiness | 2014 | + + + | Abnormal humeral head xray | 07/26/2013 | + + + | Diabetes mellitus type II, non insulin dependent | 04/01/2013 | + + + | [...] | 05/31/2012 | + + + | Beta Blockers - Daily Use | | + + + | Obesity, Class II, BMI 35-39.9 | | + + + | Peripheral vascular disease | | + + + | Hyperplasia of prostate with lower urinary tract symptoms (LUTS) | | + + + + + | Overview: doxazosin | + + + +---+ | Gastro-esophageal reflux disease with esophagitis | | + +---+ | Gout | | + +---+ | Bilateral nephrolithiasis | | + +---+ | Intermittent claudication | | + +---+ | Hyperlipoproteinemia | | + +---+ + + | Overview: Hyperlipoproteinemia Type-Ii-a | + + + +---+ | HTN (hypertension) | | + +---+ | History of colon polyps | | + +---+ Resolved Problems + + + + | Problem | Noted | Resolved | | | Date | Date | + + + + | Steroid-induced [...] | +--------+ + + + + | 12/18/ | Orders Only | Urology | Kiko Garrido, | Left ureteral | | 2019 | | | MD | calculus (Primary | | | | | | Dx) | +--------+ + + + + | 12/14/ | Surgery | | Kiko Garrido, | CYSTOSCOPY PLACEMENT | | 2019 | | | MD | URETERAL STENT | +--------+ + + + + | 12/14/ | Anesthesia | | Pietro Tang | | 2019 | Event | | P, MD | | +--------+ + + + + | 12/14/ | Hospital | | Kiko Garrido, | Ureteral calculus, | | 2019 - | Encounter | | MD | left; | | | | | | Hydronephrosis, | | 12/15/ | | | | left; Renal colic on | 2019 | | | | left side; Acute | | | | | | kidney injury (HCC) | +--------+ + + + + | 12/14/ | Imaging | Radiology | Provider, | Arrived | 2019 | Exam | | MD Joy | | +--------+ + + + + | 12/14/ | Surgery | | Kiko Garrido, | Procedure not | 2019 | | | | performed | +--------+ + + + + | 09/25/ | Telephone | Neurology | Erica Nova | Appointment | 2019 | | | MD Sebastian [...] + + + | Blood Pressure | 150/72 | 12/16/2019 11:36 AM | | | | | PDT | | + + + + + | Pulse | 68 | 12/16/2019 11:36 AM | | | | | PDT | | + + + + + | Temperature | 36.8 C (98.2 F) | 12/16/2019 11:36 AM | | | | | PDT | | + + + + + | Respiratory Rate | 18 | 12/16/2019 11:36 AM | | | | | PDT | | + + + + + | Oxygen Saturation | 94% | 12/16/2019 11:36 AM | | | | | PDT | | + + + + + | Inhaled Oxygen | - | - | | | Concentration | | | | + + + + + | Weight | 108.6 kg (239 lb 6.7 | 12/15/2019 8:10 PM | | | | oz) | PDT | | + + + + + | Height | 177.8 cm (5' 10") | 12/15/2019 8:10 PM | | | | | PDT | | + + + + + | Body Mass Index | 34.35 | 12/15/2019 8:10 PM | | | | | PDT [...] [place] | | | | | | [address] | | | | | | | | +--------+---------+ + + + | 01/12/ | Office | Neurology | Erica Nova | | | 2019 | Visit | | MD Sebastian [address] | | | | | | [place] | | | | | | [place] [address] | | | | | | [phone] | | | | | | | [...] + + + + | Vaccine: Zoster (2 | | 02/02/20 | | | of 3) | 2 | 12 | | + + + [...] + + + | Vaccine: | | 03/21/20 | | | Dtap/Tdap/Td (3 - | 6 | 16, | | | Td) | | 02/02/20 | | | | | 12 | | + + + + + | Vaccine: | Completed | 07/21/19 | | | Pneumococcal 65+ | | 13, | | | | | 06/23/19 | | | | | 03 | | + + + + + | Vaccine: Influenza | Completed | 02/29/20 | | | | | 19, | | | | | 03/02/20 | | | | | 18, | | | | | 02/25/20 | | | | | 17, | | | | | Addition | | | | | al | | | | | history | | | | | exists | | + + + + + Implants + +-------+--------+ +--------+--------+--------+ | Implanted | Type | Area | Manufacture | Device | Shelf | Model | | | | | r | | Expira | / | | | | | | Identi | tion | Serial | | | | | | fier | Date | / Lot | + +-------+--------+ +--------+--------+--------+ | Stent Uro Unvrs Sft 7fr 26cm | Stent | Left: | COOK | | 09/20/ | [id number] | | - Sn/AImplanted: Qty: 1 on | | Ureter | [employer] | | 2022 | /N/A | | 12/15/2019 by Kiko Garrido | | | - [place] | | | [id number] | | MD Patricia at [facility] | | | | | | [address] | | [facility] | | | | | | | + +-------+--------+ +--------+--------+--------+ Procedures + +--------+ + + + | Procedure Name | Priori | Date/Time | Associated Diagnosis | Comments | | | ty | | | | + +--------+ + + + | URIC ACID | Routin | 12/16/2019 | | Results for this | | | e | 5:22 AM | | procedure are in the | | | | PDT | | results section. | + +--------+ + + + | CBC NO DIFFERENTIAL | Routin | 12/16/2019 | | Results for this | | | e | 5:22 AM | | procedure are in the | | | | PDT | | results section. | + +--------+ + + + | BASIC METABOLIC | Routin | 12/16/2019 | | Results for this | | PANEL | e | 5:22 AM | | procedure are in the | | | | PDT | | results section. | + +--------+ + + + | BABAR DELGADO STATSalvador NO | Routin | 12/15/2019 | | Results for this | | CHARGE | e | 6:58 PM | | procedure are in the | | | | PDT | | results section. | + +--------+ + + + | XR ABDOMEN AP | Routin | 12/15/2019 | | Results for this | | | e | 6:57 PM | | procedure are in the | | | | PDT | | results section. | + +--------+ + + + | ANE AIRWAY NOTE | Routin | 12/15/2019 | | Results for this | | | e | 6:35 PM | | procedure are in the | | | | PDT | | results section. | + +--------+ + + + | CYSTOSCOPY PLACEMENT | | 12/15/2019 | Left ureteral | | | URETERAL STENT | | 6:26 PM | calculus | | | | | PDT | | | + +--------+ + + + | CBC NO DIFFERENTIAL | Routin | 12/15/2019 | | Results for this | | | e | 5:17 PM | | procedure are in the | | | | PDT | | results section. | + +--------+ + + + | BASIC METABOLIC | Routin | 12/15/2019 | | Results for this | | PANEL | e | 5:17 PM | | procedure are in the | | | | PDT | | results section. | + +--------+ + + + | ECG 12 LEAD | Routin | 12/15/2019 | | Results for this | | | e | 5:16 PM | | procedure are in the | | | | PDT | | results section. | + +--------+ + + + | CORONAVIRUS | Routin | 12/15/2019 | | Results for this | | (COVID-19) NAAT | e | 5:10 PM | | procedure are in the [...] | + +--------+ + + + | PROCEDURE NOT | | 12/15/2019 | left ureteral | | | PERFORMED | | 8:00 AM | calculus | | | | | PDT | | | + +--------+ + + + from Last 3 Months Results CBC no Differential (12/16/2019 5:22 AM PDT)Only the most recent of 2 results within the period is included. + + + + + + | Component | Value | Ref Range | Performed | Pathologist | | | | | At | Signature | + + + + + + | WBC | 7.0 | 4.0 - 11.0 K/uL | [facility] | | | | | | [facility] | | | | | | [facility] | | | | | [facility] - | | | | | | LABORATORY | | + + + + + + | RBC | 4.32 | 4.30 - 5.70 | [facility] | | | | | M/uL | [facility] | | | | | | [facility] | | | | | | [facility] - | | | | | | LABORATORY | | + + + + + + | Hemoglobin | 14.2 | 13.5 - 18.0 | [facility] | | | | | g/dL | [facility] | | | | | | [facility] | | | | | | [facility] - | | | | | | LABORATORY | | + + + + + + | Hematocrit | 42.9 | 40.0 - 51.0 % | [facility] | | | | | | [facility] | | | | | | [facility] | | | | | | [facility] - | | | | | | LABORATORY | | + + + + + + | MCV | 99.3 | 83.0 - 101.0 fL | [facility] | | | | | | [facility] | | | | | | [facility] | | | | | | [facility] - | | | | | | LABORATORY | | + + + + + + | MCH | 32.9 | 28.0 - 35.0 pg | [facility] | | | | | | [facility] | | | | | | [facility] | | | | | | [facility] - | | | | | | LABORATORY | | + + + + + + | MCHC | 33.1 | 32.0 - 36.0 | [facility] | | | | | g/dL | [facility] | | | | | | [facility] | | | | | | [facility] - | | | | | | LABORATORY | | + + + + + + | RDW-CV | 13.2 | <15.0 % | [facility] | | | | | | [facility] | | | | [facility] | [facility] | | | | | | [facility] - | | | | | | LABORATORY | | + + + + + + | RDW-SD | 49.1 (H) | 35.1 - 46.3 fL | [facility] | | | | | | [facility] | | [facility] | [facility] | | | | | | [facility] - | | | | | | LAB[facility]ATORY | | + + + + + + | Platelet | 174 | 140 - 440 K/uL | [facility] | | | Count | | | [facility] | | | | | | [facility] | | | | | | [facility] - | | | | | | LABORATORY | | + + + + + + | MPV | 11.5 | 6.5 - 12.4 fL | [facility] | | | | | | [facility] | | | | | | [facility] | | | | | | [facility] - | | | | | | LABORATORY | | + + + + + + | % nRBC | 0 | 0 - 2 per 100 | [facility] | | | | | WBCs | [facility] | | | | | | [facility] | | | | | | C[facility] - | | | | | | LABORATORY | | + + + + + + | Absolute | 0.00 | 0.00 - 0.01 | [facility] | | | nRBC | | K/uL | [facility] | | | | [...] ST. | [address] | [place], [place] | [phone] | | [facility] | | [address] | | | - LABORATORY | | | | + + + + + Uric Acid (12/16/2019 5:22 AM PDT) + +-------+ + + + | Component | Value | Ref Range | Performed | Pathologist | | | | | At | Signature | + +-------+ + + + | Uric Acid | 5.8 | 3.7 - 9.2 mg/dL | [facility] | | | | [...] [address] | [place] | [phone] | | [facility] | | [address] | | | - LABORATORY | | | | + + + + + Basic Metabolic Panel (12/16/2019 5:22 AM PDT)Only the most recent of 2 results within the time period is included. + + + + + + | Component | Value | Ref Range | Performed | Pathologist | | | | | At | Signature | + + + + + + | Na | 142 | 136 - 145 | [facility] | | | | | mmol/L | [facility] | | | | | | [facility] | | | | | | CENTER - | | | | | | LABORATORY | | + + + + + + | K | 3.8 | 3.4 - 5.1 | [facility] | | | | | mmol/L | [facility] | | | | | | [facility] | | | | | | C[facility] - | | | | | | LABORATORY | | + + + + + + | Cl | 108 (H) | 98 - 107 mmol/L | [facility] | | | | | | [facility] | | | | | | [facility] | | | | | | C[facility] - | | | | | | LABORATORY | | + + + + + + | CO2 | 24 | 20 - 31 mmol/L | [facility] | | | | | | [facility] | | | | | | [facility] | | | | | | [facility] - | | | | | | LABORATORY | | + + + + + + | Anion Gap | 10 | 3 - 16 mmol/L | [facility] | | | | | | [facility] | | | | | | [facility] | | | | | | CENTER - | | | | | | LABORATORY | | + + + + + + | Glucose | 213 (H) | 60 - 106 mg/dL | [facility] | | | | | | [facility] | | | | | | [facility] | | | | | | CENTER - | | | | | | LABORATORY | | + + + + + + | BUN | 20 | 9 - 23 mg/dL | [facility] | | | | | | [facility] | | | | | | [facility]ICAL | | | | | | CENTER - | | | | | | LABORATORY | | + + + + + + | Creatinine | 1.19 | 0.70 - 1.30 | [facility] | | | | | mg/dL | [facility] | | | | | | MEDICAL | | | | | | CENTER - | | | | | | LABORATORY | | + + + + + + | eGFR if not | 58 (L)Comment: | >=60 | [facility] | | | | GLOMERULAR FILTRATION | mL/min/1.73m2 | [facility] | | | CYMRO | RATE,ESTIMATED | | MEDICAL | | | | mL/min/1.04l1Gjap than | | CENTER - | | | | 60 Chronic kidney | | LABORATORY | | | | disease,if found over a | | | | | | 3-month period.Less than | | | | | | 15 Kidney failureFor | | | | | | | | | | | | Americans,multiply the | | | | | | calculated GFR by 1.21. | | | | | | | | | | + + + + + + | Calcium | 8.7 | 8.7 - 10.4 | [facility] | | | | | mg/dL | [facility] | | | | | | MEDICAL | | | | | | CENTER - | | | | | | LABORATORY | | + + + + + + | BUN/Creatin | 16.8 | | [facility] | | | ine Ratio [...] [address] | [place] | [phone] | | [facility] | | [address] | | | - LABORATORY | | | | + + + + + FL Ivone-Kendrick Stats No Charge (12/15/2019 6:58 PM PDT) + + | Specimen | + + | | + + + + + | Narrative | Performed At | + + + | This exam has been auto-finalized. It was entered for statistical | [facility] | | purposes only. | | + + + + +---------+ + + | Performing | Address | City/State/Zipcode | Phone Number | | Organization | | | | + +---------+ + + | [facility] | | | | + +---------+ + + XR Abdomen AP (12/15/2019 6:57 PM PDT) + + | Specimen | + + | | + + + + + | Impressions | Performed At | + + + | 1. INTERVAL PLACEMENT OF A LEFT URETERAL STENT DESCRIBED. | [facility] | | PLEASE SEE THE OPERATIVE REPORT FOR FURTHER DETAILS. | | | Electronically signed by Anibal Jolly MD 12/15/2019 9:21 PM | | + + + + + + | Narrative | Performed At | + + + | 2 VIEW ABDOMEN 12/15/2019 6:57 PM CLINICAL HISTORY: intra op | [facility] | | COMPARISON: CT from earlier in the day FINDINGS: 2 fluoroscopic | | | spot images are provided and demonstrate interval placement of a | | | double-J left ureteral stent extending from the mid abdomen into the | | | pelvic cavity. The proximal stent demonstrates a prominent bend or | | | kink distal to the pigtail. No conclusive calculus is visible along | | | the imaged course of the stent. | | + + + + + | Procedure Note | + + | Dante, Rad Results In - 12/15/2019 9:24 PM PDT 2 VIEW ABDOMEN 12/15/2019 6:57 PM | | | | CLINICAL HISTORY: intra op | | | | COMPARISON: CT from earlier in the day | | | | FINDINGS: 2 fluoroscopic spot images are provided and demonstrate | | interval placement of a double-J left ureteral stent extending from | | the mid abdomen into the pelvic cavity. The proximal stent | | demonstrates a prominent bend or kink distal to the pigtail. No | | conclusive calculus is visible along the imaged course of the stent. | | | | IMPRESSION: | | | | 1. INTERVAL PLACEMENT OF A LEFT URETERAL STENT DESCRIBED. PLEASE | | SEE THE OPERATIVE REPORT FOR FURTHER DETAILS. | | | | Electronically signed by Anibal Jolly MD 12/15/2019 9:21 PM | + + + +---------+ + + | Performing | Address | City/State/Zipcode | Phone Number | | Organization | | | | + +---------+ + + | [facility] | | | | + +---------+ + + Airway (12/15/2019 6:35 PM PDT) + + + | Narrative | Performed At | + + + | Pietro Tang MD 12/15/2019 6:39 PM Anesthesia Airway | | | Placement 12/15/2019 6:31 PM Preprocedure check: patient | | | identified, oxygen, airway assessed, patient reassessment prior to | | | induction, airway equipment checked and suction Rapid Sequence | | | Induction: no Mask ventilation: easy Attempts: 1 Airway type: | | | laryngeal mask Size: 5 Cuffed: cuffed Route, reference point: | | | center of mouth Tube secured with: adhesive tape Trauma: none Tube | | | placement verification: carbon dioxide detection, equal bilateral | | | breath sounds and bilateral chest rise Performing provider: Pietro | | | Gerardo Tang MD Authorizing provider: Pietro Tang MD | | | Comments: Smooth IV induction. LMA placed and well seated. Secured | | | in place. Breathing Circuit attached to LMA. BSEB/ETCO2 | | | (auscultation and capnography) and placement confirmed. Please | | | see intraoperative grid for any additional medication documentation. | | + + + ECG 12 lead (12/15/2019 5:16 PM PDT) + + + + + + | Component | Value | Ref Range | Performed | Pathologist | | | | | At | Signature | + + + + + + | VENTRICULAR | 68 | BPM | [facility] | | | RATE EKG | | | | | + + + + + + | ATRIAL RATE | 68 | BPM | [facility] | | + + + + + + | P-R | 220 | ms | [facility] | | | INTERVAL | | | | | + + + + + + | QRS | 108 | ms | [facility] | | | DURATION | | | | | + + + + + + | Q-T | 432 | ms | [facility] | | | INTERVAL | | | | | + + + + + + | Q-T | 459 | ms | [facility] | | | INTERVAL | | | | | | (CORRECTED) | | | | | + + + + + + | P WAVE AXIS | 78 | degrees | [facility] | | + + + + + + | QRS AXIS | 22 | degrees | [facility] | | + + + + + + | T AXIS | 72 | degrees | [facility] | | + + + + + + | INTERPRETAT | Sinus rhythm with 1st | | [facility] | | | ION TEXT | degree AV | | | | | | blockNonspecific T wave | | | | | | abnormality Inferior | | | | | | leads and leads | | | | | | V5-6Nonspecific ST and T | | | | | | wave abnormality leads | | | | | | I and aVLAbnormal ECGNo | | | | | | previous ECGs | | | | | | availableConfirmed by | | | | | | MICHEL TERANLILLIAN ([id number]) | | | | | | on 12/16/2019 5:55:20 AM | | | | + + + + + + + + | Specimen | + + | | + + + + + | Narrative | Performed At | + + + | | | + + + + +---------+ + + | Performing | Address | City/State/Zipcode | Phone Number | | Organization | | | | + +---------+ + + | [facility] | | | | + +---------+ + + Coronavirus (COVID-19) NAAT (12/15/2019 5:10 PM PDT) + + + + + + | Component | Value | Ref Range | Performed | Pathologist | | | | | At | Signature | + + + + + + | SARS | NegativeComment: | Negative | [facility] | | | coronavirus | SARS-CoV-2, RNA | | . [facility] | | | 2 NAAT | (COVID-19) EUA This | | MEDICAL | | | | assay has been cleared | | CENTER - | | | | for use under an FDA | | LABORATORY | | | | Emergency Use | | | | | | Authorization. This test | | | | | | is used for clinical | | | | | | purposes. It should not | | | | | | be regarded as | | | | | | investigational or for | | | | | | research. This | | | | | | laboratory is certified | | | | | | under the Clinical | | | | | | Laboratory Improvement | | | | | | Amendments (CLIA) as | | | | | | qualified to perform | | | | | | high complexity testing. | | | | | | This test has been | | | | | | validated in accordance | | | | | | with the FDA's Guidance | | | | | | Document "Policy for | | | | | | Diagnostics Testing in | | | | | | Laboratories Certified | | | | | | to Perform High | | | | | | Complexity Testing under | | | | | | CLIA prior to Emergency | | | | | | Use Authorization for | | | | | | Coronavirus Disease-2019 | | | | | | during the Public | | | | | | Health Emergency" issued | | | | | | on August 20, 2019. | | | | | | FDA independent review | | | | | | of this validation is | | | | | | pending. This test is | | | | | | only authorized for the | | | | | | duration of time the | | | | | | declaration that | | | | | | circumstances exist | | | | | | justifying the | | | | | | authorization of the | | | | | | emergency use of in | | | | | | vitro diagnostic tests | | | | | | for detection of | | | | | | SARS-CoV-2 virus and/or | | | | | | diagnosis of COVID-19 | | | | | | infection under section | | | | | | 564(b)(1) of the Act, 21 | | | | | | U.S.C. 360bbb-3(b)(1), | | | | | | unless the authorization | | | | | | is terminated or | | | | | | revoked sooner. unless | | | | | | the authorization is | | | | | | terminated or revoked | | | | | | sooner. | | | | + + + + + + + + | Specimen | + + | Tissue - Both | | anterior nares (body | | structure) | + + + + + + + | Performing | Address | City/State/Zipcode | Phone Number | | Organization | | | | + + + + + | [facility] | [address] | [place], [place] | [phone] | | [facility] | | [address] | | | - LABORATORY | | | | + + + + + CT Abdomen Pelvis wo Contrast (12/15/2019 3:03 [...] + +--------+ | MEDICARE | MEDICA | [id number] | 12/20/18 | [phone] | | Medica | | | RE | | 98-Pre | 5 | | re | | | PART A | | sent | | | | | | AND B | | | | | | + +--------+ +--------+ + +--------+ | MEDICARE | MEDICA | [id number] | 12/20/18 | [phone] | | Medica | | | RE | | 98-Pre | 5 | | re | | | PART A | | sent | | | | | | AND B | | | | | | + +--------+ +--------+ + +--------+ | MODA | MODA | [id number] | 06/22/19 | [phone] | [address] | Indemn | | | HEALTH | | 19-Pre | 9 | [address] | ity | | | MDCR | | sent | | [place], | | | | [place] | | | | [place] [address] | | + +--------+ +--------+ + +--------+ | MODA | MODA | [id number] | 08/21/19 | [phone] | [address] | Indemn | | | HEALTH | | 08-Pre | 9 | [address] | ity | | | MDCR | | sent | | [place], | | | | [place] | | | | [place] [address] | | + +--------+ +--------+ + +--------+ [...] | [birth year] | [address] | | [place] | al/Fam | | 1935 | [phone] | [address] [place], | | | mal[place] | | | [address] (Home) | [place] [address] | + +--------+ +--------+ + + | ThuyRon | Person | Self | [birth year] | [address] | | [place] | al/Fam | | 1935 | [phone] | [address] [place], | | | [place] | | | [address] (Home) | [place] [address] | + +--------+ +--------+ + + Advance Directives + + + + + | Type | Date Recorded | Patient | Explanation | | | | 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
--- OUTSIDE RECORDS SUMMARY | ~2019-12-20 | XMS | Encounter Summary ---
Demographics + + + | Address | [address] | | | [place] [address] | + + + | Home Phone | | + + + | Preferred Language | Unknown | + + + | Marital Status | | + + + | Mormonism Affiliation | 1013 | + + + [...] | | | | | [place] [address] | | + + + + + | Melissa Daley | ECON | [address] | | | | | [place] [address] | | + + + + + Care Team Providers + +------+ + | Care Loan Processor Name | Role | Phone | + [...] | RN | | | | | [place], | | | | | | [place] [address] | | | | | | [phone] | | | +--------+ + + + [...] [place] | | | | | | [address] | | | | | | | | +--------+---------+ + + + | 01/12/ | Office | Neurology | [facility] | | 2019 | Visit | | MD Sebastian [address] | | | | | | [place] | | | | | | [place] [address] | | | | | | [phone] | | | | | | | | +--------+---------+ + + + documented as of this encounter Visit Diagnoses + + | Diagnosis | + + | Nocturnal hypoxemia Hypoxemia | + + documented in this encounter"
--- OUTSIDE RECORDS SUMMARY | ~2019-12-20 | XMS | Encounter Summary ---
Demographics + + + | Address | [address] | | | [place] [address] | + + + | Home Phone | | + + + | Preferred Language | Unknown | + + + | Marital Status | | + + + | Anabaptism Affiliation | 1013 | + + + | Race | Unknown | + + + | Ethnic Group | Unknown | + + + Author + + + | Author | [facility] | | | and [place] | + + + | Organization | [facility] | | [...] | | | | | [place] [address] | | + + + + + | Melissa Sheldon | ECON | [address] | | | | | [place] [address] | | + + + + + Care Team Providers + +------+ + | Care System Admin Name | Role | Phone | + [...] Description | +--------+---------+ + + + | 07/26/ | Office | [facility] | [place], | BOOP (bronchiolitis | | 2013 | Visit | PULMONARY [address] | Carmelita Penny MD | obliterans with | | | | [place], | | organizing | | | | [place] [address] | | pneumonia) (HCC) | | | | [phone] | | (Primary Dx); | | | | | | Nocturnal hypoxemia; | | | | | | Abnormal humeral | | | | | | head xray | +--------+---------+ + + + Social History [...] + + + | Blood Pressure | 144/82 | 07/26/2013 10:59 AM | | | | | PST | | + + + + + | Pulse | 65 | 07/26/2013 10:59 AM | | | | | PST | | + + + + + | Temperature | - | - | | + + + + + | Respiratory Rate | - | - | | + + + + + | Oxygen Saturation | 95% | 07/26/2013 10:59 AM | | | | | PST | | + + + + + | Inhaled Oxygen | - | - | | | Concentration | | | | + + + + + | Weight | 109.5 kg (241 lb 4.8 | 07/26/2013 10:59 AM | | | | oz) | PST | | + + + + + | Height | 175.3 cm (5' 9") | 07/26/2013 10:59 AM | | | | | PST | | + + + + + | Body Mass Index | 35.63 | 07/26/2013 10:59 AM | | | | | PST | | + + + + + documented in this encounter Patient Instructions Patient Instructions Carmelita Mckeon MD - 07/26/2013 11:37 AM PSTHave chest x-ray to day. I will write to discontinue the oxygen. documented in this encounter Progress Notes Carmelita Mckeon MD - 07/26/2013 12:17 PM PSTFormatting of this note might be differe nt from the original. Pulmonary Follow Up MD Jan[facility] [address] [place], [address] HPI Ron Sheldon is a 78 y.o. male patient of Jona Deal here today for follow u p of history of BOOP with nocturnal hypoxemia. Mr. Sheldon initially presented back in April 2012 with severe community acquired pneum onia and secondary BOOP. He then slowly improved, with slow tapering of steroids. He has had ongoing nocturnal hypoxemia. He has some minimal chest x-ray findings, described as "reticu lonodular findings." He also has a right sided linear density in the fissural region. This r emains after his chest x-ray cleared substantially. He has not had recurrence after stopping steroids. Since their last visit he feels like he has been doing pretty well. He has not had any acu te illnesses. He does note that he had one episode a week ago, where he noted his oxygen lev el to desaturate on exertion. He noted it to drop to 82%. He was walking up a hill (a slight incline per his ). He was not wearing gloves at the time, and his hands were cold (his notes they usually do not get cold). He was panting quite a bit, and so he checked his oxygen level. Typically he drops to 90% with exertion uphill and 95% with exertion on level ground. He can walk about 1/2 mile on level ground without stopping, then he stops mostly due to ba ck and hip pain. He can walk the 1/2 mile with the hill at home, more stopping due to dyspne a to rest for a minute or so. He is using oxygen at night at 1L. He would like to stop this, or at least get rid of the b ack up tank. Dr. Deal wrote a letter to [facility] without result (they did not pick it up). He also would like to know if he can travel without his oxygen. We discussed risks and bene fits of using and not using his oxygen at night. His time under 88% is quite low, though he consistently meets criteria. Past Medical History Past Medical History Diagnosis Date BOOP (bronchiolitis obliterans with organizing pneumonia) Acute respiratory failure with hypoxia Hypertension Dyslipidemia Colon polyps Acid reflux disease Cough Sinus infection Hyperlipidemia Diverticulosis Nephrolithiasis recurrent, calcium oxalate crystals Cataract Carpal tunnel syndrome Osteoarthritis Walking pneumonia Diabetes mellitus, type 2 Past Surgical History Past Surgical History Procedure [...] Morphine Medications: Outpatient Encounter Prescriptions as of 07/26/2013 Medication Sig Dispense Refill acetaminophen (TYLENOL) 650 MG CR tablet Take 650 mg by mouth every 8 hours as needed. allopurinol (ZYLOPRIM) 100 mg tablet Take 200 mg by mouth Daily. amLODIPine (NORVASC) 5 mg tablet Take 5 mg by mouth Daily. atenolol (TENORMIN) 100 MG tablet Take 100 mg by mouth 2 times daily. atorvaSTATin (LIPITOR) 20 mg tablet Take 20 mg by mouth Daily. doxazosin (CARDURA) 4 mg tablet Take 4 mg by mouth 2 times daily. fluticasone (FLONASE) 50 mcg/nasal spray instill 2 sprays into each nostril once daily 16 g 12 lisinopril (PRINIVIL, ZESTRIL) 10 mg tablet Take 10 mg by mouth Daily. ONE TOUCH ULTRA TEST strip USE TO TEST 4 TIMES DAILY 100 each 3 testosterone (ANDROGEL) 50 mg/5 g (1%) gel Inject 200 mg of testosterone into the muscl e Daily. Every three weeks. Review of Systems Constitutional: Denies fever, chills, sweats, and change in weight. Sleep: Denies difficulty sleeping, excessive snoring, and daytime sleepiness. Eyes: Denies vision change and eye irritation. ENT: Using the nasal spray at times with no further bleeding and less congestion and drain age. His nose seems more dry in general. Resp: See HPI. CV: Denies chest pain, palpitations, syncope, and peripheral edema. GI: Denies heartburn, nausea, vomiting, and abdominal pain. : Denies difficulty emptying bladder and nocturia. Musculoskeletal: Denies joint pain/stiffness, joint swelling, and muscle cramps. Objective BP 144/82 | Pulse 65 | Ht 1.753 m (5' 9") | Wt 109.453 kg (241 lb 4.8 oz) | BMI 35.63 kg/m2 | SpO2 95% General Appearance: Alert, cooperative, no distress, appears stated age Head: Normocephalic, without obvious abnormality, atraumatic Eyes: PERRL, conjunctiva clear, no scleral icterus, EOM's intact Ears: Normal TM's, external auditory canals, slightly diminished acuity Nose: Nares normal, septum midline, mucosa mildly edematous Mouth: No oral lesions or exudate Neck: Supple, symmetrical, no adenopathy Lungs: No accessory muscle use, breath sounds are are somewhat diminished bilaterally, no wheezes, crackles or rhonchi Chest Wall: No deformity Heart: Regular rate and rhythm, no murmur, rub or gallop Abdomen: Soft, non-tender, non-distended, mildly obese Extremities: No cyanosis, clubbing, or edema Pulses: Radial pulses 2+ and symmetric Skin: Warm and dry Lymph nodes: Cervical and supraclavicular nodes normal Data: Overnight oximetry was done on room air on April 07, 2013 and was reviewed and interprete d in clinic today. It shows he spent 6 minutes 44 seconds with a saturation less than 88 %. Overnight oximetry was done on room air on May 14, 2013 and was reviewed and interpret ed in clinic today. It shows he spent 9 minutes 20 seconds with a saturation less than 88 %. Chest x-ray was done on April 01, 2013 and was reviewed and interpreted in clinic today. It shows degenerative changes of the left humeral head, question of possible avascular necr osis. My nurse called and spoke to Ron, who reported no change in his shoulder symptoms or recent injuries. He reported having had surgery to this in the . I asked that a copy b e sent to his PCP. I am noting it here again, to send with my note. Immunization History Administered Date(s) Administered INFLUENZA, PRESERVATIVE FREE IM 05/25/2012, 03/25/2013 Pneumococcal (Adult) 06/23/2002, 07/21/2012 Assessment 1. BOOP (bronchiolitis obliterans with organizing pneumonia) - Clinically he seems stable. He has always had some residual x-ray changes which raises the question of some type of othe r underlying disease, or possibly has scarring from his prior process, or he could get recur rence. He also never had biopsy confirmation, though responded clinically consistent with AMALIA OP. Given that he had a desaturation (unclear if real, as it was cold and it could be periphera l vasoconstriction, but he was very dyspneic), we will repeat his x-ray today, and if needed do a CT scan. 2. Nocturnal hypoxemia - He meets criteria for nocturnal oxygen, though barely. We discusse d risks and benefits of use, and at this time he chooses to stay off of oxygen. We will disc ontinue and monitor his nocturnal saturation every 6 months. We will recheck in 6 months wit h a follow up appointment. This could be from his prior lung injury or could be due to hypov entilation, and concern for sleep apnea ("that is a end" says his , so we will not attempt to evaluate further). 3. Abnormal humeral head xray- Likely this represents degenerative changes, though question of avascular necrosis is raised (he did get prolonged systemic steroids). He has had surger y on this side per his report. He denies specific complaints. I have asked that this report be sent to his primary, and am noting again here. Plan 1.Check chest x-ray today. 2.Discontinue oxygen at his request. He is educated on risks and benefits. He was advised to call if new pulmonary symptoms were to develop. Return to clinic in 6 months, or sooner with concerns. CC: Jona Deal Portions of this report were transcribed using voice recognition software. Every effort wa s made to ensure accuracy; however, inadvertent computerized landscape foreman errors may be pre sent. Katelynn in t his encounter Plan of Treatment +--------+---------+ + + + | Date | Type | Specialty | Care Team | Description | +--------+---------+ + + + | 12/25/ | Office | Urology | Kiko Garrido | | | 2019 | Visit | | MD Jorge A HENRIQUEZ | | | | | | [place] | | | | | | [address] | | | | | | | | +--------+---------+ + + + | 01/12/ | Office | Neurology | Erica Nova | | | 2019 | Visit | | MD Sebastian [address] | | | | | | [place] | | | | | | [place] [address] | | | | | | [phone] | | | | | | | | +--------+---------+ + + + + + +--------+ + + | Name | Type | Priori | Associated Diagnoses | Order Schedule | | | | ty | | | + + +--------+ + + | Oxygen Therapy | Respiratory | Routin | Nocturnal | Expected: | | | Care | e | hypoxemia | 07/26/2013, Expires: | | | | | | 07/26/2014 | + + +--------+ + + documented as of this encounter Results XR Chest PA and Lateral (07/26/2013 2:32 PM PST) + + | Specimen | + + | | + + + + + | Narrative | Performed At | + + + | [facility] | [place] | | Department [address] [facility], [place] | [facility] | | [ rep [address]] [ rep ct [facility] | | st zip] Signed | - IMAGING | | | | | Patient Name: ORN SHELDON V Physician: | | | OFFE.01 : 1935 Age: 78 Sex: M Unit #: [id number] | | | Exam Date: 07/26/13 Location: [facility] | | | Report #: [id number] Page: | | | %(RAD)RES..mtdd.print.filter("pg") of %(RAD) | | | RES..mtdd.print.filter("tpg") | | | | | | Accession Number: [id number] | | | CHEST, PA AND LATERAL, 07/26/2013 CLINICAL HISTORY: | | | HISTORY OF BOOP, SOME LOW OXYGEN LEVELS LAST WEEK WHEN OUT WALKING | | | IN THE COLD. NO CHANGE IN SYMPTOMS. COMPARISON: | | | 04/01/2013. FINDINGS: Reticulonodular | | | opacities are again seen in bilateral lungs, not substantially changed | | | as compared with 04/01/2013. There is hyperexpansion of the | | | lungs, with flattening of the hemidiaphragms bilaterally. Scarring | | | is seen in the right mid lung zone. Atelectasis and/or scarring is | | | seen at the lung bases. There is increased lucency in the upper | | | lung zones, as might be seen with emphysema. Heart size and | | | mediastinal contours are within normal limits other than for tortuous | | | aorta. There is spondylosis with bridging osteophytes at multiple | | | levels. No acute osseous or soft tissue abnormalities. | | | IMPRESSION: NO FOCAL CONSOLIDATION TO SUGGEST PNEUMONIA. 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 Dictated Date/Time: | | | 07/26/2013 14:32 Transcribed Date/Time: 07/26/2013 16:02 | | | Flower Buncher Or Picker: <<Signature on File>> | | | | | | Kiko Hair MD07/26/13 1931 <Electronically signed by Kiko | | | Melina Hair MD> Kiko Hair MD 07/26/13 1432 | | | Flower Buncher Or Picker: [employer] [id number]/04/14 1602 | | | Carmelita Mckeon MD | | + + + + + + + + | Performing | Address | City/State/Zipcode | Phone Number | | Organization | | | | + + + + + | [facility] | [address] | [place] | [phone] | | [facility] | | [address] | | | - IMAGING | | | | + + + + + documented in this encounter Visit Diagnoses + + | Diagnosis | + + | BOOP (bronchiolitis obliterans with organizing pneumonia) (HCC) - Primary Other | | specified alveolar and parietoalveolar pneumonopathies | + + | Nocturnal hypoxemia Hypoxemia | + + | Abnormal humeral head xray Nonspecific (abnormal) findings on radiological and other | | examination of musculoskeletal system | + + documented in this encounter
--- OUTSIDE RECORDS SUMMARY | ~2019-12-20 | XMS | Encounter Summary ---
Demographics + + + | Address | [address] | | | [place] [address] | + + + | Home Phone [...] | | | | | [place] [address] | | + + + + + | Melissa Daley | ECON | [address] | | | | | [place] [address] | | + + + + + Care Team Providers + +------+ + | Care Bumboater Name | Role | Phone | + [...] | alveolar and | | | | [place], | | parietoalveolar | | | | [place] [address] | | pneumonopathies | | | | [phone] | | (HCC) (Primary Dx); | | [...] [place] | | | | | | [address] | | | | | | | | +--------+---------+ + + + | 01/12/ | Office | Neurology | Erica Nova | | 2019 | Visit | | MD Sebastian [address] | | | | | | [place] | | | | | | [place] [address] | | | | | | [phone] | | | | | | | [...] | | | | | | exacerbation (HCC) | | | | | | Hypoxemia [...]
--- OUTSIDE RECORDS SUMMARY | ~2019-12-20 | XMS | Encounter Summary ---
Demographics + + + | Address | [address] | | | [place] [address] | + + + | Home Phone [...] | | | | | [place] [address] | | + + + + + | Melissa Daley | ECON | [address] | | | | | [place] [address] | | + + + + + Care Team Providers + +------+ + | Care Sports Doctor Name | Role | Phone | + +------+ + | Jona Deal MD | PCP | | + +------+ + Reason for Visit + +--------+ + | Reason | Onset | Comments | | | Date | | + +--------+ + | Referral | 12/18/ | colonoscopy not needed unless symptoms. | | | 2017 | | + +--------+ + Encounter Details +--------+ + + + + | Date | Type | Department | Care Team | Description | +--------+ + + + + | 12/18/ | Telephone | [facility] | Rakesh Ruiz MD | Referral | | 2017 | | GASTROENTEROLOGY | [address], [place] | (colonoscopy not | | | | [address] [place] | [address] [place] | needed unless | | | | [address] [place], [place] | [address] | symptoms.) | | | | [address] | | | | | | [phone] | | | +--------+ + + + [...] this encounter Miscellaneous Notes Telephone Encounter - Erica Casas RN - 12/18/2017 4:28 PM PDTDiscussed with miguel boggs's Melissa that Dr. Ruiz reviewed Ron's chart and past colonoscopies and if no lower GI symptoms and no family history of colon cancer then would not do colonoscopy at age 82. If patient develops any lower GI symptoms such as rectal bleeding or change in bowel patter n they may call our office and Dr. Ruiz would do colonoscopy. was happy to hear that colonoscopy not needed. documented in this encounter Plan of Treatment +--------+---------+ + + + | Date | Type | Specialty | Care Team | Description | +--------+---------+ + + + | 12/25/ | Office | Urology | Kiko Garrido, | | | 2019 | Visit | | MD Jorge A HENRIQUEZ | | | | | | [place] | | | | | | [id number] | | | | | | | | +--------+---------+ + + + | 01/12/ | Office | Neurology | Erica Nova | | | 2019 | Visit | | MD Sebastian [address] | | | | | | [place] | | | | | | [place] [address] | | | | | | [phone] | | | | | | | | +--------+---------+ + + + documented as of this encounter Visit Diagnoses Not on filedocumented in this encounter"
--- OUTSIDE RECORDS SUMMARY | ~2019-12-20 | XMS | Encounter Summary ---
Demographics + + + | Address | [address] | | | [place] [address] | + + + | Home Phone | | + + + | Preferred Language | Unknown | + + + | Marital Status | | + + + | Amish Affiliation | 1013 | + + + [...] | | | | | [place] [address] | | + + + + + | Melissa Daley | ECON | [address] | | | | | [place] [address] | | + + + + + Care Team Providers + +------+ + | Care Trainmaster Name | Role | Phone | + +------+ + | Jona Deal MD | PCP | | + +------+ + Encounter Details +--------+ + + + + | Date | Type | Department | Care Team | Description | +--------+ + + + + | 06/01/ | Abstract | [facility] | Alex Nam | | | 2017 | | SURGERY [address] | MD Malaika, FACS [address] | | [address] [place], [place] | [address] [facility] | | | | | [address] | [place] [address] | | | | | [phone] | [phone] | | | | | | | [...] + documented as of this encounter Progress Lisseth Ramirez CMA - 06/01/2017 11:02 AM PSTABI with Doppler waveforms and Digit waveform s on 05/05/2017 at [facility] human factors specialist. RIGHT: 1.12 LEFT 1.19 NOTES: Bilateral [...] [place] | | | | | | [address] | | | | | | | | +--------+---------+ + + + | 01/12/ | Office | Neurology | Erica Nova | | | 2019 | Visit | | MD Sebastian [address] | | | | | | [place] | | | | | | [place] [address] | | | | | | [phone] | | | | | | | | +--------+---------+ + + + documented as of this encounter Visit Diagnoses Not on filedocumented in this encounter"
--- OUTSIDE RECORDS SUMMARY | ~2019-12-20 | XMS | Encounter Summary ---
Demographics + + + | Address | [address] | | | [place] [address] | + + + | Home Phone | | + + + | Preferred Language | Unknown | + + + | Marital Status | | + + + | Hoahaoism Affiliation | 1013 | + + + [...] | | | | | [place] [address] | | + + + + + | Melissa Daley | ECON | [address] | | | | | [place] [address] | | + + + + + Care Team Providers + +------+ + | Care Crane Engineer Name | Role | Phone | [...] | obliterans with | | | | [place], | | organizing | | | | [place] [address] | | pneumonia) ([facility]) | | | | [phone] | | (Primary Dx); Other | | | | | | 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 | | | | | | ([facility]) | +--------+ + + + [...] [place] | | | | | | [address] | | | | | | | | +--------+---------+ + + + | 01/12/ | Office | Neurology | Erica Nova | | 2019 | Visit | | MD Sebastian [address] | | | | | | [place] | | | | | | [place] [address] | | | | | | [phone] | | | | | | | [...] | | | | | | pneumonia) ([facility]) | | + + +--------+ + + documented as of this encounter Visit Diagnoses + + | Diagnosis | + + | BOOP (bronchiolitis obliterans with organizing pneumonia) ([facility]) - Primary Other | | specified alveolar and parietoalveolar pneumonopathies | + + | Other specified alveolar and parietoalveolar pneumonopathies | + + documented in this encounter"
--- OUTSIDE RECORDS SUMMARY | ~2019-12-20 | XMS | Encounter Summary ---
Demographics + + + | Address | [address] | | | [place] [address] | + + + | Home Phone | | + + + | Preferred Language | Unknown | + + + | Marital Status | | + + + | Jehovah'S Witness Affiliation | 1013 | + + + [...] | | | | | [place] [address] | | + + + + + | Melissa Sheldon | ECON | [address] | | | | | [place] [address] | | + + + + + Care Team Providers + +------+ + | Care Shipper Name | Role | Phone | + +------+ + | Unknown, Doctor | PCP | | + +------+ + Encounter Details +--------+ + + + + | Date | Type | Department | Care Team | Description | +--------+ + + + + | 05/17/ | Hospital | [facility] | Felice Ford, | | | 2011 - | Encounter | [facility] | [address] | | | | | [address] [place] | [place], [place] | | | 05/24/ | | [place] [address] | [id number] | | | 2011 | | [phone] | [phone] | | | | | | | | | | | | Mali Foreman MD | | | | | | [address] | | | | | | [place] | | | | | | [address] | | | | | | | [...] Mali Foreman MD - 05/24/2012 10:32 [place] [address] Patient Name: RON SHELDON V Provider: Felice Ford MD Unit #: [id number] Location: [address] [place] [address] #: [id number] : 1935 ADMISSION DATE: 05/17/2012 DISCHARGE DATE: [...] The patient was admitted on transfer from [facility] in [place], [place] , after being admitted 05/13/2012. He required up to 10 liters of oxygen and h ad a significant cough. As there was no pulmonary consultation available, he was transferre d to [facility]. The patient was started on IV methylprednisolone 8 0 mg t.i.d., but due to hyperglycemia, this apparently was discontinued. Sputum culture gre w staph feces, which appeared to be sensitive. Additional respiratory culture here at [facility] grew Jonn. The patient was empirically [...] is re commended by Dr. Mckeon, his organizational effectiveness consultant, that he have a sleep study [...] be increased, as well as NovoLog sl idi school scale as ordered above. DICTATED BY: Mali Foreman MD Internal Medicine JOB #: [id number] EXT JOB #:[id number] cc: MD Jona Gregorio MD Benjamin Leach, [...] Felice Ford MD - 05/17/2012 8:00 [place] [address] Patient Name: RON SHELDON V Provider: Felice Ford MD Unit #: [id number] Location: [address] [place] [address] #: [id number] : 1935 DATE: 05/17/2012 CHIEF COMPLAINT: Cough, [...] about 20 feet. He was admitted to [facility] on 05/13/2012. An xray showed multifocal consolidations. [...] up to 10 liters of oxygen at [facility] and because a master automotive technician was not available, he was transferred to [facility] for further workup. He did have a [...] HISTORY: He [place] outside [place]. 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 LABORATORY DATA: Chem-7 from [facility] this AM shows sodium 135, potassium 4, [...] initial sputum culture, negative bacterial culture at [facility]. It does seem to be a subacute [...] BY: Felice Ford MD Hospitalist JOB #: [id number] EXT JOB #:[id number] cc: Carmelita Mckeon MD <<Signature on File>> Dat Jarvis D107/18/11 0123 < documented in thi s encounter Consult Notes Carmelita Mckeon MD - 05/18/2012 3:19 PM PST [place], [place] [address] Patient Name: RON SHELDON V Provider: Felice Ford MD Unit #: [id number] Location: [address] [place], [place] [address] #: [id number] : 1935 DATE: 05/18/2012 CONSULTING PHYSICIAN: Carmelita [...] olyps and reflux disease who presented to [facility] in [place], [place] on 05/13/2012, with cough, hemoptysis, and [...] any unusual travel. 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 He notes that at baseline he goes to mormonism every Thursday and at [facility] he is exposed to [...] He went to a care clinic in [place] on Thursday05/03/2012 and wa s treated with [...] not have the notes available from that [facility] clinic visit. Three days later on , which is now 05/13/2012, he had continu ed to have worsening shortness of breath, increasing hemoptysis with now fresh blood mixed in with his sputum and was now turning blue with exertion. This prompted him to go to the e mergency room at [facility]. He notes that the color of [...] was poor. Chest x-ray on presentation to [facility] showed multifocal consolidations and ground- glass [...] and sputum cultures sent on presentation to [facility] and his sputum culture is gr [...] transfer arrangements were made to transfer to [facility]. On the morning as his transfer he [...] wash out, followed by prolonged antibiotics through [facility]. 7. Status post tons illectomy. 8. Status [...] He lives on a ranch outside of [place] with his of 60 years. There are [...] g use. 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 He has previously been exposed to to [facility] chemicals, namely herbicides, and also extensively [...] had had high blood mccollum gars in [place]. He denies any history of thyroid disease. [...] was warm and dry. DATA: Records from [facility] were reviewed as was a [...] negative. Influenza A and B swab from [facility] was also negative. BNP on arrival to [facility] w as 349 and decreased to [...] 05/17/2012 . His chest x-ray from the [facility] on 05/10/2012, already shows patchy bilateral [...] his chest CT scan appearance. 2. ABNORMAL [address] [facility] [address]. As noted above, this appears [...] with steroids for about 24 hours at [facility] a nd had clinical worsening of [...] going to request the culture data from [facility] to see if they have further speciated [...] Carmelita Mckeon MD Pulmonary Medicine JOB #: [id number] EXT JOB #:[id number] cc: MD Felice Worthy MD <<Signature on [...] | | | | | [place] | | | | | | [address] | | | | | | | | +--------+---------+ + + + | 01/12/ | Office | Neurology | Erica Nova | | | 2019 | Visit | | MD Sebastian [address] | | | | | | [place] | | | | | | [place] [address] | | | | | | [phone] | | | | | | | [...] | + +--------+ + + + | VANCOMYCIN, TROUGH | Routin | 05/19/2012 | | Results [...] | + +--------+ + + + | ROSSANA PANEL | Routin | 05/18/2012 | | [...] | + +--------+ + + + | UA, MICROSCOPIC, | Routin | 05/17/2012 | | Results [...] + + + + | WBC | 8.3 | 4.0 - 11.0 K/uL | [facility] | [facility] | | | | | | MEDICAL | | | | | | CENTER - | | | | | | LABORATORY | | + + + + + + | RBC | 4.36 | 4.30 - 5.70 | [...] + | [facility] | [address] | [place], [place] | [phone] | | [facility] | | [address] | | | - LABORATORY | | | | + + + + + | [facility] | [address] | [place], [place] | | | [facility] | | Critical access hospital, [facility] | | | - LABORATORY | [...] (H) | 70 - 109 mg/dL | [facility] | | | | [...] (H) | 7 - 18 mg/dL | [facility] | | | | | | [facility] | | | | | | MEDICAL | | | | | | CENTER - | | | | | | LABORATORY | | + + + + + + | Creatinine | 1.06 | 0.60 - 1.30 | [facility] | | | | | mg/dL | [facility] | | | | | | MEDICAL | | | | | | CENTER - | | | | | | LABORATORY | | + + + + + + | Estimated | >60Comment: For | >60 mL/min/A | [facility] | | | GFR | -Americans, | | [facility] | | | | please multiply [...] | 11.4 | 6.0 - 17.0 | [facility] | [...] + | [facility] | [address] | [place], [place] | [phone] | | [facility] | | [address] | | | - LABORATORY | | | | + + + + + | [facility] | [address] | [place], [place] | | | [facility] | | [address], [facility] | | | - LABORATORY | | | | + + + + + XR Chest AP Portable (05/23/2012 12:43 PM PST) + + | Specimen | + + | | + + + + + | Narrative | Performed At | + + + | [facility] | [place] | | Department [address] [facility] [place] | [facility] | | [ rep ct street1+2] [ rep [facility] | | st zip] Signed | - IMAGING | | | | | Patient Name: MARQUISMyrandaRON V Physician: | | | VAN.01 : 1935 Age: 77 Sex: M Unit #: [id number] | | | Exam Date: 05/23/12 Location: [address] [place] [address] | | | Report #: [id number] Page: | | | %(RAD)RES..mtdd.print.filter("pg") of %(RAD) | | | RES..mtdd.print.filter("tpg") | | | | | | Accession Number: [id number] | | | PORTABLE CHEST, 05/23/2012 CLINICAL [...] | | | Transcribed Date/Time: 05/23/2012 14:11 Translator: | | | <<Signature on File>> | | | Rakesh | | | Myranda Guerrero MD05/23/12 1725 <Electronically signed by Rakesh Whitmore | | | Yolanda TERAN> Rakesh Guerrero MD 05/23/12 1243 | | | Translator: [employer] Jertrtyaexxdh31/02/12 1411 | | | | | + + + + + + + + | Performing | Address | City/State/Zipcode | Phone Number | | Organization | | | | + + + + + | [facility] | [address] | [place] | [phone] | | [facility] | | [address] | | | - IMAGING | | [...] + + + + | WBC | 8.9 (A) | 4.0 - 11.0 K/uL | [facility] | | | | | | [facility] | | | | | | MEDICAL | | | | | | CENTER - | | | | | | LABORATORY | | + + + + + + | RBC | 4.13 (L) | 4.30 - 5.70 | [facility] | | | | | M/uL | [facility] | [...] + | [facility] | [address] | [place], [place] | [phone] | | [facility] | | [address] | | | - LABORATORY | | | | + + + + + | [facility] | [address] | [place], [place] | | | [facility] | | [address] | | | - LABORATORY [...] (L) | 3.2 - 5.0 gm/dL | [facility] | | | | | [...] + | [facility] | [address] | [place] | [phone] | | [facility] | | [address] | | | - LABORATORY | | | | + + + + + | [facility] | [address] | [place] | | | [facility] | | [address] | | | - [...] (H) | 70 - 109 mg/dL | [facility] | | | | [...] | 0.95 | 0.60 - 1.30 | [facility] | [...] + | [facility] | [address] | [place], [place] | [phone] | | [facility] | | [address] | | | - LABORATORY | | | | + + + + + | [facility] | [address] | [place], [place] | | | [facility] | | [address] | | | - LABORATORY | | | | + + + + + XR Chest AP Portable (05/22/2012 10:52 AM PST) + + | Specimen | + + | | + + + + + | Narrative | Performed At | + + + | [facility] | [place] | | Department [address] [facility] [place] | [facility] | | [ rep ct street1+2] [ rep [facility] | | st zip] Signed | - IMAGING | | | | | Patient Name: RON SHELDON V Physician: | | | DOROTEO. : 1935 Age: 77 Sex: M Unit #: [id number] | | | Exam Date: 05/22/12 Location: [address] [place] [address] | | | Report #: [id number] Page: | | | %(RAD)RES..mtdd.print.filter("pg") of %(RAD) | | | RES..mtdd.print.filter("tpg") | | | | | | Accession Number: [id number] | | | PORTABLE CHEST, 05/22/2012 CLINICAL [...] Transcribed Date/Time: | | | 05/22/2012 11:53 Translator: | | | <<Signature on File>> | | | Rakesh | | | Myranda Guerrero MD05/22/121943 <Electronically signed by Rakesh Whitmore | | | Yolanda TERAN> Rakesh Guerrero MD 05/22/12 1052 | | | Translator: [employer] Bgqhjtyryolef17/01/12 1153 | | | Carmelita Mckeon MD | | + + + + + + + + | Performing | Address | City/State/Zipcode | Phone Number | | Organization | | | | + + + + + | [facility] | [address] | [place] | [phone] | | [facility] | | [address] | | | - IMAGING | | [...] + + + + | WBC | 11.7 (H) | 4.0 - 11.0 K/uL | [facility] | | | | | | [facility] | | | | | | MEDICAL | | | | | | CENTER - | | | | | | LABORATORY | | + + + + + + | RBC | 3.94 (L) | 4.30 - 5.70 | [facility] | | | | | M/uL | [facility] | [...] 0.0 | 0.0 - 0.1 K/uL | [facility] [...] [address] | [place] | [phone] | | [facility] | | [address] | | | - LABORATORY | | | | + + + + + | [facility] | [address] | [place] | | | [facility] | | [address] | | | - [...] (H) | 7 - 18 mg/dL | [facility] | | | | | | [facility] | | | | | | MEDICAL | | | | | | CENTER - | | | | | | LABORATORY | | + + + + + + | Creatinine | 0.92 | 0.60 - 1.30 | [facility] | [...] + | [facility] | [address] | [place] | [phone] | | [facility] | | [address] | | | - LABORATORY | | | | + + + + + | [facility] | [address] | [place], [place] | | | [facility] | | [id number] [place] [address] | | | - LABORATORY | | [...] + + + + | WBC | 9.4 | 4.0 - 11.0 K/uL | [facility] | | | | | | [facility] | | | | | | MEDICAL | | | | | | CENTER - | | | | | | LABORATORY | | + + + + + + | RBC | 4.08 (L) | 4.30 - 5.70 | [facility] | | | | | M/uL | [facility] | | | | | | MEDICAL | | | | | | CENTER - | | | | | | LABORATORY | | + + + + + + | Hemoglobin | 14.4 | 13.5 - 18.0 | [facility] | | | | | gm/dL | [facility] | | | | [...] [facility] | | | | | | [facility] | | | | | | MEDICAL | | | | | | CENTER - | | | | | | LABORATORY | | + + + + + + | MCH | 35.4 (H) | 28.0 - 35.0 pg | [facility] | | | | | | [facility] | | | | | | [...] 0.0 | 0.0 - 0.1 K/uL | [facility] | | | Basophils | | | [...] [address] | [place] | [phone] | | [facility] | | [address] | | | - LABORATORY | | | | + + + + + | [facility] | [address] | [place] | | | [facility] | | [address] | | | - [...] | 51Comment: Testing | <100 pg/mL | [facility] | | | | performed on the Nate | | [facility] | | | | [facility] [...] + | [facility] | [address] | [place], [place] | [phone] | | [facility] | | [address] | | | - LABORATORY | | | | + + + + + | [facility] | [address] | [place], [place] | | | [facility] | | [id number] [place] [address] | | | - LABORATORY | | [...] | | | Total | | | [facility] | | | | | | MEDICAL | | | | | | CENTER - | | | | | | LABORATORY | | + + + + + + | Bilirubin | 0.1 | 0.0 - 0.2 mg/dL | [facility] | | | Direct | | | [facility] | | | | | | MEDICAL | | | | | | CENTER - | | | | | | LABORATORY | | + + + + + + | BILIRUBIN | 0.5Comment: DIRECT BILI | 0.00 - 1.00 | [facility] | | | INDIRECT | = CONJUGATED | mg/dL | [facility] | | | | INDIRECT BILI = [...] (L) | 3.2 - 5.0 gm/dL | [facility] | | | | | [...] + | [facility] | [address] | [place] | [phone] | | [facility] | | [address] | | | - LABORATORY | | | | + + + + + | [facility] | [address] | [place] | | | [facility] | | [address], [facility] | | | - LABORATORY | [...] (H) | 70 - 109 mg/dL | [facility] | | | | [...] 21.2 (H) | 12 - 20 | [facility] | | | ine Ratio | | | [facility] | | | | | | MEDICAL | | | | | | CENTER - | | | | | | LABORATORY | | + + + + + + | Na | 133 (L) | 136 - 149 mEq/L | [facility] | | | | | [...] | 9.3 | 6.0 - 17.0 | [facility] | [...] + + | [facility] | [address] | [place] | [phone] | | [facility] | | [address] | | | - LABORATORY | | | | + + + + + | [facility] | [address] | [place] | | | [facility] | | [address], [facility] | | | - LABORATORY | [...] | | >8.0 mg/L indicate | | [facility] | | | | possible infection, | [...] + | [facility] | [address] | [place], [place] | [phone] | | [facility] | | [address] | | | - LABORATORY | | | | + + + + + | [facility] | [address] | [place], [place] | | | [facility] | | [id number] [place] [address] | | | - LABORATORY | | | | + + + + + XR Chest AP Portable (05/20/2012 10:12 AM PST) + + | Specimen | + + | | + + + + + | Narrative | Performed At | + + + | [facility] | [place] | | Department [address] [facility] | [facility] | | [ rep nc street1+2] [ rep [facility] | | [facility]] Signed | - IMAGING | | | | | Patient Name: RON SHELDON V Physician: | | | OFFMelina. : 1935 Age: 77 Sex: M Unit #: [id number] | | | Exam Date: 05/20/12 Location: [address] [place] [address] | | | Report #: [id number] Page: | | | %(RAD)RES..mtdd.print.filter("pg") of %(RAD) | | | RES..mtdd.print.filter("tpg") | | | | | | Accession Number: [id number] | | | PORTABLE CHEST X-RAY CLINICAL [...] Transcribed | | | Date/Time: 05/20/2012 10:16 Translator: | | | <<Signature on File>> | | | Kiko | | | Melina Hair MD05/20/12 1038 <Electronically signed by Kiko Lindo | | | Laxmi TERAN> Kiko Hair MD 05/20/12 1012 | | | Translator: Cayetano Tzfeaeczdswqj00/29/12 1016 | | | Carmelita Mckeon MD | | + + + + + + + + | Performing | Address | City/State/Zipcode | Phone Number | | Organization | | | | + + + + + | [facility] | [address] | [place] | [phone] | | [facility] | | [address] | | | - IMAGING | | [...] | | Sample Type | | | [facility] | | | | | | MEDICAL | | | | | | CENTER - | | | | | | LABORATORY | | + + + + + + | Blood Gas | 1LR0 | | [facility] | | | Sample Site | | | [facility] | | [...] | | | Oxygen | | | [facility] | | [...] + | [facility] | [address] | [place], [place] | [phone] | | [facility] | | [address] | | | - LABORATORY | | | | + + + + + | [facility] | [address] | [place], [place] | | | [facility] | | [address] | | | - [...] + + + + | WBC | 9.2 (A) | 4.0 - 11.0 K/uL | [facility] | | | | | | [facility] | | | | | | MEDICAL | | | | | | CENTER - | | | | | | LABORATORY | | + + + + + + | RBC | 3.90 (L) | 4.30 - 5.70 [...] + | [facility] | [address] | [place] | [phone] | | [facility] | | [address] | | | - LABORATORY | | | | + + + + + | [facility] | [address] | [place], [place] | | | [facility] | | [id number] [place] [address] | | | - LABORATORY | | [...] (H) | 70 - 109 mg/dL | [facility] | | | | [...] | >60Comment: For | >60 mL/min/A | [facility] | | | GFR | -Americans, | [...] (L) | 136 - 149 mEq/L | [facility] | | | | | [...] + + | Performing | Address | City/State/[facility] | Phone Number | | Organization | | | | + + + + + | [facility] | [address] | [place] | [phone] | | [facility] | | [address] | | | - LABORATORY | | | | + + + + + | [facility] | [address] | [place] | | | [facility] | | [address], [place] | | | - LABORATORY | | [...] + | [facility] | [address] | [place], [place] | [phone] | | [facility] | | [address] | | | - LABORATORY | | | | + + + + + | [facility] | [address] | [place], [place] | | | [facility] | | [address] | | | - LABORATORY [...] + + + + | WBC | 7.7 | 4.0 - 11.0 K/uL | [facility] | | | | | | [facility] | | | | | | MEDICAL | | | | | | CENTER - | | | | | | LABORATORY | | + + + + + + | RBC | 4.07 (L) | 4.30 - 5.70 | [facility] | | | | | M/uL | [facility] | [address] | [place] | [phone] | | [facility] | | [address] | | | - LABORATORY | | | | + + + + + | [facility] | [address] | [place] | | | [facility] | | [address], [facility] | | | - LABORATORY | [...] 8.0 (L) | 8.3 - 10.5 | [facility] | | | | | mg/dL | [...] | 0.87 | 0.60 - 1.30 | [facility] | [...] | 17.2 | 12 - 20 | [facility] | [...] + | [facility] | [address] | [place], [place] | [phone] | | [facility] | | [address] | | | - LABORATORY | | | | + + + + + | [facility] | [address] | [place], [place] | | | [facility] | | [address], [facility] | | | - LABORATORY | [...] | | | | | | by: [facility] | | | | | | Laboratory, [address] | | | | | | [address], | | | | | | [place] [address] | | | | + + + + + + + + | Specimen | + + | | + + + + + + + | Performing | Address | City/State/Zipcode | Phone Number | | Organization | | | | + + + + + | [facility] | [address] | [place] | [phone] | | [facility] | | [address] | | | - LABORATORY | | | | + + + + + | [facility] | [address] | [place] | | | [facility] | | [address], [facility] | | | - LABORATORY | [...] | | | | | | Performed: [facility] | | | | | | Diagnostics, [address] | | | | | | [facility] [place], | | | | | | [place] [address] | | | | | | CLIA: [id number] | | | | + + + + + + + + | Specimen | + + | | + + + + + + + | Performing | Address | City/State/Zipcode | Phone Number | | Organization | | | | + + + + + | [facility] | [address] | [place], [place] | [phone] | | [facility] | | [address] | | | - LABORATORY | | | | + + + + + | [facility] | [address] | [place], [place] | | | [facility] | | [address] | | | - LABORATORY | | | | + + + + + XR Chest AP Portable (05/18/2012 8:55 AM PST) + + | Specimen | + + | | + + + + + | Narrative | Performed At | + + + | [facility] | [place] | | Department [address] [facility] [place] | [facility] | | [ rep ct street1+2] [ rep ct [facility] | | st zip] Signed | - IMAGING | | | | | Patient Name: RON SHELDON V Physician: | | | KARTIK.02 : 1935 Age: 77 Sex: M Unit #: [id number] | | | Exam Date: 05/17/12 Location: [address] [place] [address] | | | Report #: [id number] Page: | | | %(RAD)RES..mtdd.print.filter("pg") of %(RAD) | | | RES..mtdd.print.filter("tpg") | | | | | | Accession Number: [id number] | | | PORTABLE CHEST CLINICAL HISTORY: [...] Transcribed Date/Time: | | | 05/18/2012 08:58 Translator: | | | <<Signature on File>> | | | | | | Tan Keenan MD05/18/12 1402 <Electronically signed by | | | Tan Keenan MD> Tan Keenan MD 05/18/12 | | | 0855 Translator: Stereotypesangela Ckmzxxuyobhco60/27/12 0858 | | | | | + + + + + + + + | Performing | Address | City/State/Zipcode | Phone Number | | Organization | | | | + + + + + | [facility] | [address] | [place] | [phone] | | [facility] | | [address] | | | - IMAGING | | [...] (H) | 70 - 109 mg/dL | [facility] | | | | [...] | | | | | | [facility] | | [...] + | [facility] | [address] | [place] | [phone] | | [facility] | | [address] | | | - LABORATORY | | | | + + + + + | [facility] | [address] | [place], [place] | | | [facility] | | [address] | | | - [...] | | | | performed on the [employer] | | [facility] | | | | [place] [facility] | | MEDICAL | | | [...] + | [facility] | [address] | [place], [place] | [phone] | | [facility] | | [id number] | | | - LABORATORY | | | | + + + + + | [facility] | [address] | [place], [place] | | | [facility] | | [address] [place] [address] | | | - LABORATORY | | [...] + + + + | WBC | 7.1 | 4.0 - 11.0 K/uL | [facility] | | | | [facility] | [facility] | | | | | [facility] - | | | | | | LABORATORY | | + + + + + + | RBC | 4.08 (L) | 4.30 - 5.70 | [facility] | | | | | M/uL | [facility] | [...] 0.0 | 0.0 - 0.1 K/uL | [facility] | | | Basophils | | | [facility] | | [...] + | [facility] | [address] | [place] | [phone] | | [facility] | | [address] | | | - LABORATORY | | | | + + + + + | [facility] | [address] | [place] | | | [facility] | | [id number], [facility] | | | - LABORATORY | | | | + + + + + ANCA Panel (05/18/2012 4:39 AM PST) + + + + + + | Component | Value | Ref Range | Performed | Pathologist | | | | | At | Signature | + + + + + + | Anti-Neutro | <1:20Comment: Reference | () | [facility] | | | niharika | Range: <1:20 Testing | | [facility] | | | Cytoplasmic | Performed: [facility], [address] | | MEDICAL | | | Antibody | [address], [place] | | CENTER - | | | | [address] CLIA: [id number] | | LABORATORY | | | | | | | | + + + + + + + + | Specimen | + + | | + + + + + + + | Performing | Address | City/State/Zipcode | Phone Number | | Organization | | | | + + + + + | [facility] | [address] | [place], [place] | [phone] | | [facility] | | [address] | | | - LABORATORY | | | | + + + + + | [facility] | [address] | [place], [place] | | | [facility] | | [address], [facility] | | | - LABORATORY | [...] | multiplex screen for 11 | | [facility] | | | | autoantibodies (dsDNA, | | MEDICAL | | | | Sm, Ribosomal P, | | CENTER - | | | | Chromatin, TOXICOLOGY TEACHER, Sm TOXICOLOGY TEACHER, | | LABORATORY | | | | Scl-70, Centromere B, | | | | | | SSA, SSB and Desiree-1) was | | | | | | performed and no | | | | | | autoantibodies were | | | | | | detected. Testing | | | | | | Performed: [facility], [address] | | | | | | [place], [place] | | | | | | [address] CLIA: [id number] | | | | | | | | | | + + + + + + + + | Specimen | + + | | + + + + + + + | Performing | Address | City/State/Zipcode | Phone Number | | Organization | | | | + + + + + | [facility] | [address] | [place], [place] | [phone] | | [facility] | | [address] | | | - LABORATORY | | | | + + + + + | [facility] | [address] | [place], [place] | | | [facility] | | [address] | | | - [...] 1.10Comment: Testing | 0.34 - 5.60 | [facility] | | | | performed on the Nate | uIU/mL | [facility] | | | | [place] [facility] | | MEDICAL | | | [...] [address] | [place] | [phone] | | [facility] | | [address] | | | - LABORATORY | | | | + + + + + | [facility] | [address] | [place] | | | [facility] | | [address], [facility] | | | - LABORATORY | [...] | | | Cells, | | | [facility] | | | Urine | | [...] | + + + + + | [facility] | [address] | [place], [place] | [phone] | | [facility] | | [address] | | | - LABORATORY | | | | + + + + + | [facility] | [address] | [place], [place] | | | [facility] | | [address] [place] [address] | | | - LABORATORY | | [...] + + + + + + | Clarity | CLEAR | | [facility] | | | | [...] - 1.030 | [facility] | | | [place], | | | [facility] | | [...] | | | Urine | | | [facility] | | [...] + | [facility] | [address] | [place], [place] | [phone] | | [facility] | | [address] | | | - LABORATORY | | | | + + + + + | [facility] | [address] | [place], [place] | | | [facility] | | [address], [facility] | | | - LABORATORY | [...] | | Antigen, | INTERPRETATION: | | [facility] | | | Rapid | NEGATIVE: Infection [...] + | [facility] | [address] | [place] | [phone] | | [facility] | | [address] | | | - LABORATORY | | | | + + + + + | [facility] | [address] | [place] | | | [facility] | | [address] | | | - [...] | | AB | NEGATIVEComment: | | [facility]YN | | | | Presumptive NEGATIVE for [...] [address] | [place] | [phone] | | [facility] | | [address] | | | - LABORATORY | | | | + + + + + | [facility] | [address] | [place], [place] | | | [facility] | | [address] | | | - [...] + | [facility] | [address] | [place], [place] | [phone] | | [facility] | | [address] | | | - LABORATORY | | | | + + + + + documented in this encounter Visit Diagnoses Not on filedocumented in this encounter
--- OUTSIDE RECORDS SUMMARY | ~2019-12-20 | XMS | Encounter Summary ---
Demographics + + + | Address | [address] | | | [place] [address] | + + + | Home Phone | | + + + | Preferred Language | Unknown | + + + | Marital Status | | + + + | Taoism Affiliation | 1013 | + + + | Race | Unknown | + + + | Ethnic Group | Unknown | + + + Author + + + | Author | [facility] | | | and [place] | + + + | Organization | [facility] [...] | | | | | [place] [address] | | + + + + + | Melissa Sheldon | ECON | [address] | | | | | [place] [address] | | + + + + + Care Team Providers + +------+ + | Care Bakery Machine Mechanic Supervisor Name | Role | Phone | + +------+ + | Jona Deal MD | PCP | | + +------+ + Encounter Details +--------+ + + + + | Date | Type | Department | Care Team | Description | +--------+ + + + + | 09/29/ | Hospital | [facility] | Offenstein, | BOOP (bronchiolitis | | 2012 - | Encounter | MED CTR XRAY [address] | Carmelita Penny MD | obliterans with | | | | [place] | | organizing | | 10/01/ | | [place] [address] | | pneumonia) (HCC) | | 2012 | | [phone] | | | +--------+ + + + [...] [place] | | | | | | [address] | | | | | | | | +--------+---------+ + + + | 01/12/ | Office | Neurology | Erica Nova | | | 2019 | Visit | | MD Sebastian [address] | | | | | | [place] | | | | | | [place] [address] | | | | | | [phone] | | | | | | | | +--------+---------+ + + + documented as of this encounter Procedures + +--------+ + + + | Procedure Name | Priori | Date/Time | Associated Diagnosis | Comments | | | ty | | | | + +--------+ + + + | XR CHEST PA AND | Routin | 09/29/2012 | BOOP | Results for this | | LATERAL | e | 12:27 PM | (bronchiolitis | procedure are in [...] At | + + + | [facility] | [place] | | Department [address] [facility] [address] [facility] [place] | [facility] | | [ rep ct [address]] [ rep ct [facility] | | [facility]] Signed | - IMAGING | | | | | Patient Name: RON SHELDON V Physician: | | | OFFE. : 1935 Age: 77 Sex: M Unit #: [id number] | | | Exam Date: 09/29/12 Location: [facility] | | | Report #: [id number] Page: | | | %(RAD)RES..mtdd.print.filter("pg") of %(RAD) | | | RES..mtdd.print.filter("tpg") | | | | | | Accession Number: [id number] | | | CHEST, PA AND LATERAL, [...] | | | Transcribed Date/Time: 09/29/2012 12:33 Carpenter Inspector: | | | <<Signature on File>> | | | Mart | | | MD [place]09/29/12 1551 <Electronically signed by Mart Boyle MD> | | | Mart Boyle MD 09/29/12 1227 Carpenter Inspector: Cayetano | | | [email or web address]/10/13 1233 Carmelita Mckeon MD | | | | | + + + + + + + + | Performing | Address | City/State/Zipcode | Phone Number | | Organization | | | | + + + + + | [facility] | [address] 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
--- OUTSIDE RECORDS SUMMARY | ~2019-12-20 | XMS | Encounter Summary ---
Demographics + + + | Address | [address] | | | [place] [address] | + + + | Home Phone | | + + + | Preferred Language | Unknown | + + + | Marital Status | | + + + | Scientology Affiliation | 1013 | + + + [...] | | | | | [place] [address] | | + + + + + | Melissa Daley | ECON | [address] | | | | | [place] [address] | | + + + + + Care Team Providers + +------+ + | Care Sheep Clipper Name | Role | Phone | + +------+ + | Jona Deal MD | PCP | | + +------+ + Reason for Visit + +--------+ + | Reason | Onset | Comments | | | Date | | + +--------+ + | Appointment | 09/25/ | | | | 2020 | | + +--------+ + Encounter Details +--------+ + + + + | Date | Type | Department | Care Team | Description | +--------+ + + + + | 09/25/ | Telephone | [facility] | Erica Nova | Appointment | | 2020 | | HOSPITAL NEUROLOGY | MD [address] | | | | | CLINIC [address] | [place] | | | | | [address] [place], | [place] [address] | | | | | [place] [address] | [phone] | | | | | [phone] | | | +--------+ + + + [...] this encounter Miscellaneous Notes Telephone Encounter - Belinda Preston - 09/26/2019 8:55 AM PDTTried calling to schedule consult. documented in this encounter Plan of Treatment +--------+---------+ + + + | Date | Type | Specialty | Care Team | Description | +--------+---------+ + + + | 12/25/ | Office | Urology | Kiko Garrido, | | 2019 | Visit | | [address] | | | | | | [place] | | | | | | [address] | | | | | | | | +--------+---------+ + + + | 01/12/ | Office | Neurology | Erica Nova | | 2019 | Visit | | MD Sebastian [address] | | | | | | [place] | | | | | | [place] [address] | | | | | | [phone] | | | | | | | | +--------+---------+ + + + documented as of this encounter Visit Diagnoses Not on filedocumented in this encounter"
--- OUTSIDE RECORDS SUMMARY | ~2019-12-20 | XMS | Encounter Summary ---
Demographics + + + | Address | [address] | | | [place] [address] | + + + | Home Phone | | + + + | Preferred Language | Unknown | + + + | Marital Status | | + + + | Jew Affiliation | 1013 | + + + | Race | Unknown | + + + | Ethnic Group | Unknown | + + + Author + + + | Author | [facility] | | | and [place] | + + + | Organization | [facility] | | [...] | | | | | [place] [address] | | + + + + + | Melissa Daley | ECON | [address] | | | | | [place] [address] | | + + + + + Care Team Providers + +------+ + | Care Quill Cleaning Machine Operator Name | Role | Phone | + +------+ + | Jona Deal MD | PCP | | + +------+ + Encounter Details +--------+ + + + + | Date | Type | Department | Care Team | Description | +--------+ + + + + | 05/22/ | Abstract | [facility] | Alex Nam | Peripheral vascular | | 2017 | | SURGERY [address] | MD Malaika, FACS [address] | disease (HCC); | | | | [address] [place], [place] | [address] | Prostatic | | | | [address] | [place] [address] | hyperplasia, benign | | | | [phone] | [phone] | localized, with | | | | [...] and Digit waveform s on 05/05/2017 at [facility] fabrication specialist. NOTES: Bilateral waveforms and numeric values [...] | | | | | [place] | | | | | | [id number] | | | | | | | | +--------+---------+ + + + | 01/12/ | Office | Neurology | Erica Nova | | 2019 | Visit | | MD Sebastian [address] | | | | | | [place] | | | | | | [place] [address] | | | | | | [phone] | | | | | | | [...]
--- OUTSIDE RECORDS SUMMARY | ~2019-12-20 | XMS | Encounter Summary ---
Demographics + + + | Address | [address] | | | [place] [address] | + + + | Home Phone | | + + + | Preferred Language | Unknown | + + + | Marital Status | | + + + | Taoist Affiliation | 1013 | + + + [...] | | | | | [place] [address] | | + + + + + | Melissa Daley | ECON | [address] | | | | | [place] [address] | | + + + + + Care Team Providers + +------+ + | Care Applications Engineering Manager Name | Role | Phone | + +------+ + PCP | Unavailable | + +------+ + Encounter Details +--------+ + + + + | Date | Type | Department | Care Team | Description | +--------+ + + + + | 05/27/ | Hospital | [facility] | | | | 2000 | Encounter | MED CTR GENERIC OP | | | | | | CONV DEPT [address] | | | | | | [place], | | | | | | [place] [address] | | | | | | [phone] | | | +--------+ + + + [...] [place] | | | | | | [address] | | | | | | | | +--------+---------+ + + + | 01/12/ | Office | Neurology | Erica Nova | | | 2019 | Visit | | MD Sebastian [address] | | | | | | [place] | | | | | | [place] [address] | | | | | | [phone] | | | | | | | | +--------+---------+ + + + documented as of this encounter Visit Diagnoses Not on filedocumented in this encounter"
--- OUTSIDE RECORDS SUMMARY | ~2019-12-20 | XMS | Encounter Summary ---
Demographics + + + | Address | [address] | | | [place] [address] | + + + | Home Phone | | + + + | Preferred Language | Unknown | + + + | Marital Status | | + + + | Scientology Affiliation | 1013 | + + + | Race | Unknown | + + + | Ethnic Group | Unknown | + + + Author + + + | Author | [facility] | | | and [place] | + + + | Organization | [facility] | | [...] | | | | | [place] [address] | | + + + + + | Melissa Daley | ECON | [address] | | | | | [place] [address] | | + + + + + Care Team Providers + +------+ + | Care Assembler Aircraft Power Plant Name | Role | Phone | + [...] Description | +--------+--------+ + + + | 06/29/ | Refill | [facility] [place] | Mike, | Medication Refill | | 2013 | | PULMONARY [address] | Carmelita Penny MD | | | | | [place], | | | | | | [place] [address] | | | | | | [phone] | | | +--------+--------+ + + + [...] [place] | | | | | | [address] | | | | | | | | +--------+---------+ + + + | 01/12/ | Office | Neurology | Erica Nova | | | 2019 | Visit | | MD Sebastian [address] | | | | | | [place] | | | | | | [place] [address] | | | | | | [phone] | | | | | | | [...]
--- OUTSIDE RECORDS SUMMARY | ~2019-12-20 | XMS | Encounter Summary ---
Demographics + + + | Address | [address] | | | [place] [address] | + + + | Home Phone [...] | | | | | [place] [address] | | + + + + + | Melissa Daley | ECON | [address] | | | | | [place] [address] | | + + + + + Care Team Providers + +------+ + | Care Managing Director Atlas Name | Role | Phone | + +------+ + | Jona Deal MD | PCP | | + +------+ + Reason for Visit +--------+--------+ + | Reason | Onset | Comments | | | Date | | +--------+--------+ + | Other | 06/25/ | | | | 2012 | | +--------+--------+ + Encounter Details +--------+ + + + + | Date | Type | Department | Care Team | Description | +--------+ + + + + | 06/25/ | Telephone | [facility] [place] | Marci Mcneal, | Other | | 2012 | | PULMONARY [address] | RN | | | | | [place], | | | | | | [place] [address] | | | | | | [phone] | | | +--------+ + + + [...] Mcneal RN - 06/25/2012 2:36 PM Kate Velasquez and mely mccracken with . Advised per Dr Mckeon that Ron needs to have a repeat nocturnal p ulse oximetry on O2 at 2 l/m. Yasmeen and she will relay this message to [...] [place] | | | | | | [address] | | | | | | | | +--------+---------+ + + + | 01/12/ | Office | Neurology | Erica Nova | | 2019 | Visit | | MD Sebastian [address] | | | | | | [place] | | | | | | [place] [address] | | | | | | [phone] | | | | | | | | +--------+---------+ + + + documented as of this encounter Visit Diagnoses Not on filedocumented in this encounter"
--- OUTSIDE RECORDS SUMMARY | ~2019-12-20 | XMS | Encounter Summary ---
Demographics + + + | Address | [address] | | | [place] [address] | + + + | Home Phone [...] | | | | | [place] [address] | | + + + + + | Melissa Daley | ECON | [address] | | | | | [place] [address] | | + + + + + Care Team Providers + +------+ + | Care Woodworking Belt Sander Name | Role | Phone | [...] + | 06/01/ | Telephone | [facility] [place] | Mike, | Other (Discontinue | | 2011 | | PULMONARY [address] | Carmelita Penny MD | portable oxygen) | | | | [place], | | | | | | [place] [address] | | | | | | [phone] | | | +--------+ + + + [...] Dr Mckeon to discontinue portable oxygen. V oineelima Hinson in [place] faxed DC of portable Oxygen order. documented [...] [place] | | | | | | [address] | | | | | | | | +--------+---------+ + + + | 01/12/ | Office | Neurology | Erica Nova | | 2019 | Visit | | MD Sebastian [address] | | | | | | [place] | | | | | | [place] [address] | | | | | | [phone] | | | | | | | | +--------+---------+ + + + documented as of this encounter Visit Diagnoses Not on filedocumented in this encounter"
--- OUTSIDE RECORDS SUMMARY | ~2019-12-20 | XMS | Encounter Summary ---
Demographics + + + | Address | [address] | | | [place] [address] | + + + | Home Phone | | + + + | Preferred Language | Unknown | + + + | Marital Status | | + + + | Moravian Affiliation | 1013 | + + + | Race | Unknown | + + + | Ethnic Group | Unknown | + + + Author + + + | Author | [facility] | | | and [place] | + + + | Organization | [facility] | | | and [...] | | | | | [place] [address] | | + + + + + | Melissa Daley | ECON | [address] | | | | | [place] [address] | | + + + + + Care Team Providers + +------+ + | Care Analytical Strategist Name | Role | Phone | + [...] | | | | | [address] | [address] [place], [place] | | | | | [place], [place] | [address] | | | | | [address] | [phone] | | | | | [phone] | | | +--------+ + + + [...] +----+---+ + + | | 1 | [place] | | | | 8 | 43-degrees [...] +----+---+ + + | | 1 | [place] off | | | | 8 | [...] EVALUATION Ron Daley 84 y.o. male 1935 [id number] Procedure(s) CYSTOSCOPY PLACEMENT URETERAL STENT (Left Ureter) [...] Pietro Tang MD 12/15/2019 9:48 PM PDT [facility] nesthesia Procedure Notes - Pietro Tang [...] EVALUATION Ron Shaht 84 y.o. male 1935 [id number] Procedure(s): CYSTOSCOPY PLACEMENT URETERAL STENT (Left Ureter) [...] | | | | | [place] [address] | | | | | | [phone] | | | | | | | [...] | | | | | | Starting [facility] 12/15/19 at 1659, For | | | [...]
--- OUTSIDE RECORDS SUMMARY | ~2019-12-20 | XMS | Encounter Summary ---
Demographics + + + | Address | [address] | | | [place] [address] | + + + | Home Phone [...] | | | | | [place] [address] | | + + + + + | Melissa Daley | ECON | [address] | | | | | [place] [address] | | + + + + + Care Team Providers + +------+ + | Care Workgroup Leader Name | Role | Phone | [...] Kiko Garrido, | CYSTOSCOPY PLACEMENT | | 2020 | | MED CTR OR INTRA OP | MD [address] | URETERAL STENT | | | | [address] | [place], [place] | | | | | [place], [place] | [address] | | | | | [address] | | | | | | [phone] | | | +--------+---------+ + + + [...] voiding. Follow up: Call Dr Garrido's office ([phone]) to set up your follow-up appointment or [...] DATA: Lab Results Component Value Date CREA 1.19 12/16/2019 BUN 20 12/16/2019 NA 142 12/16/2019 K [...] 1935 Date of Admission: 12/15/2019 Requesting/Referring Physician: [facility] emergency department Chief Complaint: 11 mm proximal [...] a visit to the emergency department at [facility]. While at [facility], CT imaging was performed which demonstrated an [...] Kiko Garrido MD 4 mg at 12/15/19 4281 Allergies: Allergies Allergen Reactions Demerol [Meperidine] Iodine [...] file Gets together: Not on file Attends zoroastrianism service: Not on file Active member of [...] 175 04/30/2014 PLT 169 12/15/2019 Creatinine at [facility] today is reported to be 1.5. Lab [...] surgical procedure and anesthesia including DVT, PE, ID, CVA, and even . Ron indicates his [...] Electronically signed by: Kiko Garrido MD 12/15/2019 [facility] documented in this en counter Miscellaneous Notes Plan of Carmelita Britton MSW - 12/16/2019 5:33 PM PDT Problem: Discharge Planning Goal: Patient's discharge needs will be identified in a timely manner Outcome: Met Goal: Patient will be discharged in a safe manner Outcome: Met This lining caser met with Ron to discuss his discharge plan. Ron states that he lives with his spouse Melissa in [place] at the [facility]. He states that he can d o his own ADLs. He doesn't use any A/D. The long term home helps with cleaning, providing m eals. He takes his own meds. He feels he is still independent and Melissa helps with medication management. His daughter is Katie Yusuf. She will be providing transportation back to his [facility] home today. This CM met with Katie prior to Ron being discharged. We dicussed his OBS status. Provide d a brochure and a ALFRED form. Ron signed it and this CM provided him with a copy. Katie feels he is safe to return home today. PCP is Nilo, he uses [facility] in [place]. PLAN: Home with spouse, daughter Katie to transport. lan of Jeanna Berger RN - 12/16/2019 2:13 PM PDTPt adequate for discharge. PIV removed. Educated pt and pt daughter on discharge instruct ions with emphasis on calling for outpatient appointment and s/s to seek medical attention. Transferred to daughter's car via wheelchair. Daughter to drive pt back to living facility i n [place]. All questions answered. 20 3:38 PM PDTPlan of Destiny [place] Chaplain - 12/16/2019 10:12 AM PDT Spiritua reece Velasquez Thierry Daley is a 84 y.o. male who is admitted for ureteral stone left ureteral calculus LEFT URETERAL CALCULUS. 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 Spiritual Evaluation: The patient was sitting up in his bed on the surgical unit and welcomed a spiritual care vi sit. He was immediately pleasant and engaging. The patient has a long, deep, and positive e xperience in his marriage, work and moravian. He lives at an assisted living facility with vignesh s , whose health is challenged, but he sees her resilience. He has been over 75 years and worked over 65 years. 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 His daughter works here and came to his bedside during our vis it. He is accepting of the need for surgery and has experienced this issue several times, s ome times needing hospitalization, other times not. Spiritual Interventions: The banana carrier attended, offered care, explored patient's life story [...] this afternoon. 10 :22 AM PDTPlan of Care - Letitia Randall RN - 12/16/2019 4:29 [...] Daley 84 y.o. 1935 Med. Record Number: [id number] Date of Operation/Procedure: 12/15/2019 Preoperative Diagnosis: 11 mm mid left ureteral calculus Left hydronephrosis Left renal colic Acute Kidney Injury Postoperative Diagnosis: 11 mm mid left ureteral calculus Left hydronephrosis Left renal colic Acute Kidney Injury Surgeon: Kiko Garrido MD Director Vaccine(s): None Anesthesia Provider(s): Anesthesiologist: Pietro Tang MD [...] guidance up into the renal pelvis. A 7-Portuguese X 26 cm double-J stent was placed [...] Garrido MD, 12/15/2019 7:02 PM PDT [facility] documented in this en counter Plan of Treatment +--------+---------+ + + + | Date | Type | Specialty | Care Team | Description | +--------+---------+ + + + | 12/25/ | Office | Urology | Kiko Garrido, | | 2019 | Visit | Sowmya TERAN [address] | | | | | | [place] | | | | | | [address] | | | | | | | | +--------+---------+ + + + | 01/12/ | Office | Neurology | Erica Nova | 2019 | Visit | Sowmya Cortes MD [address] | | | | | | [place] | | | | | | [place] [address] | | | | | | [phone] | | | | | | | [...] 5.8 | 3.7 - 9.2 mg/dL | [facility] | | | | [...] ST. | [address] | [place], [place] | [phone] | | [facility] | | [address] | | | - LABORATORY | | [...] | | nRBC | | K/uL | BRYN | | | | | [...] [address] | [place] | [phone] | | [facility] | | [address] | | | - LABORATORY | | [...] | 1.19 | 0.70 - 1.30 | [facility] | | | | | mg/dL | [...] mL/min/1.73m2 | [facility] | | | IRAQI | RATE,ESTIMATED | | MEDICAL | | | | mL/min/1.09y5Grfv than | | CENTER - | | [...] [address] | [place] | [phone] | | [facility] | | [address] | | | - LABORATORY | | [...] + + + + | WBC | 9.1 | 4.0 - 11.0 K/uL | [facility] | | | | | | [facility] | | | | | | MEDICAL | | | | | | CENTER - | | | | | | LABORATORY | | + + + + + + | RBC | 4.31 | 4.30 - 5.70 | [...] | | | Count | | | [facility] | | [...] ST. | [address] | [place] | [phone] | | [facility] | | [address] | | | - LABORATORY | | [...] 1.39 (H) | 0.70 - 1.30 | [facility] | | | | | mg/dL | [facility] | | | | | | MEDICAL | | | | | | CENTER - | | | | | | LABORATORY | | + + + + + + | eGFR if not | 48 (L)Comment: | >=60 | [facility] | | | | GLOMERULAR FILTRATION | mL/min/1.73m2 | [facility] | | | IRAQI | RATE,ESTIMATED | | MEDICAL | | | | mL/min/1.33k4Lycq than | | CENTER - | | [...] | 8.7 | 8.7 - 10.4 | [facility] | | | | | mg/dL | [facility] | | | | | | MEDICAL [...] [address] | [place] | [phone] | | [facility] | | [address] | | | - LABORATORY | | [...] | | | | LILLIAN PEARSON MD ([id number]) | | | | | | on [...] | coronavirus | SARS-CoV-2, RNA | | [facility] | | | 2 NAAT | (COVID-19) [...] [address] | [place] | [phone] | | [facility] | | [address] | | | - LABORATORY | | [...] than 38.3 | | | C, Starting [facility] 12/15/19 at 2003, | | | May [...] | | | | First dose on [facility] 12/15/19 at 2100 | | AM PDT [...] | | TIMES DAILY, First dose on Thu | | AM PDT | | | [...] | | First dose on Thu12/15/19 at 2100 | | AM PDT | [...] PDT | | | | | Starting [facility] 12/15/19 at 1700 | | | | | | + +-------+ +------+---+---+ + +---+ | | | + +---+ | ondansetron (ZOFRAN) injection | | | 4 mg 4 mg, Intravenous, EVERY 6 | | | HOURS PRN, Nausea, Vomiting, | | | Starting [facility] 12/15/19 at 2004, | | | First line agent. Use [...]
--- OUTSIDE RECORDS SUMMARY | ~2019-12-20 | XMS | Encounter Summary ---
Demographics + + + | Address | [address] | | | [place] [address] | + + + | Home Phone | | + + + | Preferred Language | Unknown | + + + | Marital Status | | + + + | Religion Affiliation | 1013 | + + + | Race | Unknown | + + + | Ethnic Group | Unknown | + + + Author + + + | Author | [facility] | | | and [place] | + + + | Organization | [facility] | | [...] | | | | | [place] [address] | | + + + + + | Melissa Daley | ECON | [address] | | | | | [place] [address] | | + + + + + Care Team Providers + +------+ + | Care Business Banker Name | Role | Phone | + [...] MD | Dx) | | | | [place], | | | | | | [place] [address] | | | | | | [phone] | | | +--------+ + + + [...] [place] | | | | | | [address] | | | | | | | | +--------+---------+ + + + | 01/12/ | Office | Neurology | Erica Nova | | | 2019 | Visit | | MD Sebastian [address] | | | | | | [place] | | | | | | [place] [address] | | | | | | [phone] | | | | | | | [...]
--- OUTSIDE RECORDS SUMMARY | ~2019-12-20 | XMS | Encounter Summary ---
Demographics + + + | Address | [address] | | | [place] [address] | + + + | Home Phone [...] | | | | | [place] [address] | | + + + + + | Melissa Daley | ECON | [address] | | | | | [place] [address] | | + + + + + Care Team Providers + +------+ + | Care Motorcycle Police Name | Role | Phone | + +------+ + | Bunny Corcorna | PCP | | | MD | | | + +------+ + Encounter Details +--------+ + + + + | Date | Type | Department | Care Team | Description | +--------+ + + + + | 12/14/ | Imaging | [facility] | Provider, | Arrived | | 2020 | Exam | MED CTR EXTERNAL | MD [address] | | | | | IMAGING [address] | [address] | | | | | [address] | [place] [address] | | | | | [place] [address] | | | | | | [phone] | | | +--------+ + + + [...] [place] | | | | | | [address] | | | | | | | | +--------+---------+ + + + | 01/12/ | Office | Neurology | Erica Nova | | 2019 | Visit | | MD Sebastian [address] | | | | | | [place] | | | | | | [place] [address] | | | | | | [phone] | | | | | | | [...]
--- OUTSIDE RECORDS SUMMARY | ~2019-12-20 | XMS | Encounter Summary ---
Demographics + + + | Address | [address] | | | [place] [address] | + + + | Home Phone [...] | | | | | [place] [address] | | + + + + + | Melissa Daley | ECON | [address] | | | | | [place] [address] | | + + + + + Care Team Providers + +------+ + | Care Iron Installer Name | Role | Phone | [...] | | BOOP | [place], | [address] | | | | | (bronchiolit | Carmelita B, | [place], | | | | | is | MD [address] | [place] [address] | | | | | obliterans | [address] | Phone: | | | | | with | [place], | [phone] | | | | | organizing | [place] [address] | Fax: | | | | | pneumonia) | | [phone] | | | | | (HCC) | [...] | | BOOP | [place], | [address] | | | | | (bronchiolit | Carmelita B, | [place], | | | | | is | MD [address] | [place] [address] | | | | | obliterans | [address] | Phone: | | | | | with | [place], | [phone] | | | | | organizing | [place] [address] | Fax: | | | | | pneumonia) | | [phone] | | | | | (HCC) | [...] + + | 01/12/ | Hospital | [facility] | [place], | BOOP (bronchiolitis | | 2014 | Encounter | MED CTR CT [address] | Carmelita Penny MD | obliterans with | | | | [address] [place], | | organizing | | | | [place] [address] | | pneumonia) ([facility]) | | | | [phone] | | | +--------+ + + + [...] [place] | | | | | | [address] | | | | | | | | +--------+---------+ + + + | 01/12/ | Office | Neurology | Erica Nova | | | 2019 | Visit | | MD Sebastian [address] | | | | | | [place] | | | | | | [place] [address] | | | | | | [phone] | | | | | | | [...] CT chest dated May 17, 2012 from [facility] | | | [facility]. 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
--- OUTSIDE RECORDS SUMMARY | ~2019-12-20 | XMS | Encounter Summary ---
Demographics + + + | Address | [address] | | | [place] [address] | + + + | Home Phone [...] | | | | | [place] [address] | | + + + + + | Melissa Daley | ECON | [address] | | | | | [place] [address] | | + + + + + Care Team Providers + +------+ + | Care Belt Cutter Name | Role | Phone | [...] Penny MD | | | | | [place], | | | | | | [place] [address] | | | | | | [phone] | | | +--------+--------+ + + + [...] [place] | | | | | | [address] | | | | | | | | +--------+---------+ + + + | 01/12/ | Office | Neurology | Erica Nova | | | 2019 | Visit | | MD Sebastian [address] | | | | | | [place] | | | | | | [place] [address] | | | | | | [phone] | | | | | | | [...]
--- OUTSIDE RECORDS SUMMARY | ~2019-12-20 | XMS | Encounter Summary ---
Demographics + + + | Address | [address] | | | [place] [address] | + + + | Home Phone [...] | | | | | [place] [address] | | + + + + + | Melissa Sheldon | ECON | [address] | | | | | [place] [address] | | + + + + + Care Team Providers + +------+ + | Care Wellness Director Name | Role | Phone | + +------+ + | Jona Deal MD | PCP | | + +------+ + Encounter Details +--------+ + + + + | Date | Type | Department | Care Team | Description | +--------+ + + + + | 05/17/ | Hospital | [facility] | | | | 2012 | Encounter | MED CTR XRAY [address] | | | | | | [place] | | | | | | [place] [address] | | | | | | [phone] | | | +--------+ + + + [...] [place] | | | | | | [address] | | | | | | | | +--------+---------+ + + + | 01/12/ | Office | Neurology | Erica Nova | | 2019 | Visit | | MD Sebastian [address] | | | | | | [place] | | | | | | [place] [address] | | | | | | [phone] | | | | | | | [...] At | + + + | [facility] | [facility] | | Department [address] , [place] | [facility] | | [ rep [phone]] [ rep ct [facility] | | zip] Signed | - IMAGING | | | | | Patient Name: RON SHELDON V Physician: | | | GIFF.20 : 1935 Age: 78 Sex: M Unit #: [id number] | | | Exam Date: 05/17/13 Location: [facility] | | | Report #: [id number] Page: | | | %(RAD)RES..mtdd.print.filter("pg") of %(RAD) | | | RES..mtdd.print.filter("tpg") | | | | | | Accession Number: [id number] | | | MRI LUMBAR SPINE, 05/17/2013 [...] | | pole of the right kidney. Xkrpw-[id number] analysis of | | | the axial [...] | | | Transcribed Date/Time: 05/17/2013 17:36 Upset Operator: | | | <<Signature on File>> | | | | | | Tan Keenan MD05/18/13 0654 <Electronically signed by | | | Tan Keenan MD> Tan Keenan MD 05/17/13 | | | 1548 Upset Operator: Occlutech Edifcclgbvxkw26/26/13 8283 | | | DO Jona Weir MD | | + + + + + + + + | Performing | Address | City/State/Zipcode | Phone Number | | Organization | | | | + + + + + | [facility] | [address] | [place] | [phone] | | [facility] | | [address] | | | - IMAGING | | | | + + + + + documented in this encounter Visit Diagnoses Not on filedocumented in this encounter
--- OUTSIDE RECORDS SUMMARY | ~2019-12-20 | XMS | Encounter Summary ---
Demographics + + + | Address | [address] | | | [place] [address] | + + + | Home Phone | | + + + | Preferred Language | Unknown | + + + | Marital Status | | + + + | Holiness Affiliation | 1013 | + + + | Race | Unknown | + + + | Ethnic Group | Unknown | + + + Author + + + | Author | [facility] | | | and [place] | + + + | Organization | [facility] | | | [...] | | | | | [place] [address] | | + + + + + | Melissa Daley | ECON | [address] | | | | | [place] [address] | | + + + + + Care Team Providers + +------+ + | Care Spine Nurse Name | Role | Phone | + +------+ + | Jona Dela MD | PCP | | + +------+ + Reason for Visit +--------+--------+ + | Reason | Onset | Comments | | | Date | | +--------+--------+ + | Other | 06/24/ | | | | 2012 | | +--------+--------+ + Encounter Details +--------+ + + + + | Date | Type | Department | Care Team | Description | +--------+ + + + + | 06/24/ | Telephone | [facility] | Jared Garcia, | Other | | 2012 | | PULMONARY [address] | RN | | | | | [place], | | | | | | [place] [address] | | | | | | [phone] | | | +--------+ + + + [...] Jared Garcia RN - 06/24/2012 12:07 PM PSTMessage justin mccracken by JARED GARICA on ThuJun 24, 2012 1207 ------ Message [...] 2019 | Visit | | [address] | | | | | | [place] | | | | | | [id number] | | | | | | | | +--------+---------+ + + + | 01/12/ | Office | Neurology | Erica Nova | | 2019 | Visit | | MD Sebastian [address] | | | | | | [place] | | | | | | [place], [place] [address] | | | | | | [phone] | | | | | | | | +--------+---------+ + + + documented as of this encounter Visit Diagnoses Not on filedocumented in this encounter"
--- OUTSIDE RECORDS SUMMARY | ~2019-12-20 | XMS | Encounter Summary ---
Demographics + + + | Address | [address] | | | [place] [address] | + + + | Home Phone [...] | | | | | [place] [address] | | + + + + + | Melissa Daley | ECON | [address] | | | | | [place] [address] | | + + + + + Care Team Providers + +------+ + | Care Paper Machine Tender Name | Role | Phone | + +------+ + | Jona Mcintosh MD | PCP | | + +------+ + Encounter Details +--------+ + + + + | Date | Type | Department | Care Team | Description | +--------+ + + + + | 04/30/ | Emergency | [facility] | Anthony Ramirez | Syncope, vasovagal | | 2013 | | [facility]ENTER | MD [address] | | | | | EMERG[facility]Y CENTER | [place]ON[place], | | | | | [address] [facility] | [place] [address] | | | | | [place], [place] | [phone] | | | | | [address] | | | | | | [phone] | | | +--------+ + + + [...] Author: Cecelia Alamo Service: (none) Author Type: Stoker Erector Filed: 04/30/141246 Date of Service: 04/30/141246 Status: Signed Facing Machine Operator: Cecelia Alamo (Stoker Erector) EKG completed, results given to Dr Hugh Alamo 04/30/141246 Anthony Awan MD - 04/30/2014 12:04 PM PST ED Provider Notes by Anthony Ramirez MD at 04/30/14 1204 Author: Anthony Ramirez MD Service: Emergency Department Author Type: Physician Filed: 04/30/14 1758 Date of Service: 04/30/14 120 Status: Signed Facing Machine Operator: Anthony Ramirez MD (Physician) [facility] Department of Emergency Medicine 04/30/14 12:04 PM [...] complaints of syncope. Onset of symptoms was ULTRASOUND TESTER, which occ urred only once. The symptoms [...] diaphoresis, fever, cough, or congestion. No care ULTRASOUND TESTER. The pt reports he has never passed [...] sore throat CV/Resp: Negative for chest pain, [id number]-qs-uzvfnb, cough GI: Positive for nausea Negative for [...] Value Ref Range Date/Time Troponin I, Lab [[id number]] Collected: 04/30/14 1134 Order Status: Completed Updated: 04/30/14 1205 Specimen Information: Blood TROPONIN I <0.020 0.00 - 0.10 ng/mL Cardiac Panel [[id number]] (Abnormal) Collected: 04/30/14 1134 Order Status: Completed [...] For follow up [address] [place] [id number] [facility] Emergency Department If symptoms worsen [address] [place] [address] Discharge Medications: Discharge Medication List as of 04/30/2014 1:17 PM Procedures Additional Documentation Procedures Attending Note: Documentation assistance provided by Marisa Yanes (Scribe). Information recorded by the scribe has been reviewed and validated by me. I gumaro madrid with its contents. MD Anthony Calderón MD 04/30/14 3239 onversion Pina saction, Provider Unknown - 04/30/2014 10:31 AM PSTFormatting of this note might be differen t from the original. ED Notes by Anika Lee RN at 04/30/14 1031 Author: Anika Lee RN Service: (none) Author Type: Registered Nurse Filed: 04/30/14 1031 Date of Service: 04/30/14 103 Status: Signed Facing Machine Operator: Anika Lee RN (Registered Nurse) Laced pt [...] [place] | | | | | | [id number] | | | | | | | | +--------+---------+ + + + | 01/12/ | Office | Neurology | Erica Nova | | | 2019 | Visit | | MD Sebastian [address] | | | | | | [place] | | | | | | [place] [address] | | | | | | [phone] | | | | | | | [...] | | | | | ONLY, -COMPUTER (429), | | | | | | dictionary editor Tracie Ortiz | | | | | | (29) on 04/30/2014 | | | | | | 5:19:20 PM | | | | + + + + + + + + | Specimen | + + | | + + + + + | Narrative | Performed At | + + + | Historically converted procedure from [facility] Epic environment | EXTERNAL LAB | + [...] | | | | performed at [facility] [place] | | LAB | | | | [address];[place] | | | | | | [address] | | | | + + + + + -+ | Red Blood | 4.28Comment: Testing | 4.20 - 5.70 | EXTERNAL | | | Cells | performed at [facility] [place] | M/uL | LAB | | | Counted | [address];[place] | | | | | | [address] | | | | + + + + + -+ | Hemoglobin | 14.8Comment: Testing | 13.2 - 17.0 | EXTERNAL | | | | performed at [facility] [place] | g/dL | LAB | | | | [address];[place] | | | | | | [address] | | | | + + + + + -+ | Hematocrit, | 44.0Comment: Testing | 39.0 - 50.0 % | EXTERNAL | | | POC | performed at [facility] [place] | | LAB | | | | [address];[place] | | | | | | [address] | | | | + + + + + -+ | MCV | 103.0 (H)Comment: | 80.0 - 100.0 fl | EXTERNAL | | | | Testing performed at | | LAB | | | | [facility] [place];[address] | | [address];[place] [address] | | | | + + + + + -+ | MCH | 34.6 (H)Comment: Testing | 27.0 - 34.0 pg | EXTERNAL | | | | performed at [facility] [place];[address] | | LAB | | | | [address];[place] | | | | | | [address] | | | | + + + + + -+ | MCHC | 33.6Comment: Testing | 32.0 - 35.5 | EXTERNAL | | | | performed at [facility] [place] | g/dL | LAB | | | | [address];[place] | | | | | | [address] | | | | + + + + + -+ | RDW-CV | 48.6Comment: Testing | 37 - 53 fl | EXTERNAL | | | | performed at [facility] [place];[address] | | LAB | | | | [address];[place] | | | | | | [address] | | | | + + + + + -+ | Platelet | 175Comment: Testing | 150 - 400 K/uL | EXTERNAL | | | Count | performed at [facility] [place] | | LAB | | | Plasma | [address];[place] | | | | | | [address] | | | | + + + + + -+ | MPV | 8.5Comment: Testing | fl | EXTERNAL | | | | performed at [facility] [place];[address] | | LAB | | | | [address];[place] | | | | | | [address] | | | | + + + + + -+ | Differentia | AUTOMATEDComment: | | EXTERNAL | | | l Type | Testing performed at | | LAB | | | | [facility] [place];[address] | | | | [address];[place] [address] | | | | + + + + + -+ | % Segmented | 68.4Comment: Testing | % | EXTERNAL | | | | performed at [facility] [place] | | LAB | | | Neutrophils | [address];[place] | | | | | | [address] | | | | + + + + + -+ | % | 23.0Comment: Testing | % | EXTERNAL | | | Lymphocytes | performed at [facility] [place];[address] | | LAB | | | | [address];[place] | | | | | | [address] | | | | + + + + + -+ | % Monocytes | 7.5Comment: Testing | % | EXTERNAL | | | | performed at [facility] [place];[address] | | LAB | | | | [address];[place] | | | | | | [address] | | | | + + + + + -+ | % | 0.4Comment: Testing | % | EXTERNAL | | | Eosinophils | performed at [facility] [place];[address] | | LAB | | | | [address];[place] | | | | | | [address] | | | | + + + + + -+ | % Basophils | 0.7Comment: Testing | % | EXTERNAL | | | | performed at [facility] [place];[address] | | LAB | | | | [address];[place] | | | | | | [address] | | | | + + + + + -+ | Absolute | 4.1Comment: Testing | 1.9 - 7.4 K/uL | EXTERNAL | | | Segmented | performed at [facility] [place] | | LAB | | | Neutrophils | [address];[place] | | | | | | [address] | | | | + + + + + -+ | Absolute | 1.4Comment: Testing | 1.0 - 3.9 K/uL | EXTERNAL | | | Lymphocytes | performed at [facility] [place];[address] | | LAB | | | | [address];[place] | | | | | | [address] | | | | + + + + + -+ | Absolute | 0.4Comment: Testing | 0 - 0.8 K/uL | EXTERNAL | | | Monocytes | performed at [facility] [place] | | LAB | | | | [address];[place] | | | | | | [address] | | | | + + + + + -+ | Absolute | 0.0Comment: Testing | 0 - 0.5 K/uL | EXTERNAL | | | Eosinophils | performed at [facility] [place] | | LAB | | | | [address];[place] | | | | | | [address] | | | | + + + + + -+ | Absolute | 0.0Comment: Testing | 0 - 0.1 K/uL | EXTERNAL | | | Basophils | performed at [facility] [place] | | LAB | | | | [address];[place] | | | | | | [address] | | | | + + + + + -+ | Na | 143Comment: Testing | 135 - 143 | EXTERNAL | | | | performed at [facility] [place] | mmol/L | LAB | | | | [address];[place] | | | | | | [address] | | | | + + + + + -+ | K | 3.9Comment: Testing | 3.5 - 4.9 | EXTERNAL | | | | performed at [facility] [place] | mmol/L | LAB | | | | [address];[place] | | | | | | [address] | | | | + + + + + -+ | Cl | 112 (H)Comment: Testing | 99 - 109 mmol/L | EXTERNAL | | | | performed at [facility] [place] | | LAB | | | | [address];[place] | | | | | | [address] | | | | + + + + + -+ | CO2 | 26Comment: Testing | 23 - 32 mmol/L | EXTERNAL | | | | performed at [facility] [place];[address] | | LAB | | | | [address];[place] | | | | | | [address] | | | | + + + + + -+ | Anion Gap | 9Comment: Testing | 5 - 20 mmol/L | EXTERNAL | | | | performed at [facility] [place] | | LAB | | | | [address];[place] | | | | | | [address] | | | | + + + + + -+ | Glucose, | 114 (H)Comment: Testing | 65 - 99 mg/dL | EXTERNAL | | | Fasting | performed at [facility] [place];[address] | | LAB | | | | [address];[place] | | | | | | [address] | | | | + + + + + -+ | BUN | 15Comment: Testing | 8 - 25 mg/dL | EXTERNAL | | | | performed at [facility] [place] [place];[address] | | LAB | | | | [address];[place] | | | | | | [address] | | | | + + + + + -+ | Creatinine | 1.09Comment: Testing | 0.70 - 1.30 | EXTERNAL | | | | performed at [facility] [place] | mg/dL | LAB | | | | [address];[place] | | | | | | [address] | | | | + + + + + -+ | BUN/Creatin | 14Comment: Testing | | EXTERNAL | | | ine Ratio | performed at [facility] [place];[address] | | LAB | | | | [address];[place] | | | | | | [address] | | | | + + + + + -+ | Calcium | 8.5Comment: Testing | 8.5 - 10.2 | EXTERNAL | | | | performed at [facility] [place] | mg/dL | LAB | | | | [address];[place] | | | | | | [address] | | | | + + + + + -+ | Protein, | 6.7Comment: Testing | 6.3 - 8.2 g/dL | EXTERNAL | | | Total | performed at [facility] [place] | | LAB | | | | [address];[place] | | | | | | [address] | | | | + + + + + -+ | Albumin | 3.7Comment: Testing | 3.3 - 4.8 g/dL | EXTERNAL | | | | performed at [facility] [place] | | LAB | | | | [address];[place] | | | | | | [address] | | | | + + + + + -+ | Globulin | 3.1Comment: Testing | 1.3 - 4.9 g/dL | EXTERNAL | | | | performed at [facility] [place] | | LAB | | | | [address];[place] | | | | | | [address] | | | | + + + + + -+ | A/G Ratio | 1.2Comment: Testing | 1.0 - 2.4 | EXTERNAL | | | | performed at [facility] [place] | | LAB | | | | [address];[place] | | | | | | [address] | | | | + + + + + -+ | Bilirubin | 1.4Comment: Testing | 0.1 - 1.5 mg/dL | EXTERNAL | | | Total | performed at [facility] [place] | | LAB | | | | [address];[place] | | | | | | [address] | | | | + + + + + -+ | ALP, | 93Comment: Testing | 35 - 115 U/L | EXTERNAL | | | External | performed at [facility] [place] | | LAB | | | | [address];[place] | | | | | | [address] | | | | + + + + + -+ | AST | 19Comment: Testing | 10 - 45 U/L | EXTERNAL | | | | performed at [facility] [place];[address] | | LAB | | | | [address];[place] | | | | | | [address] | | | | + + + + + -+ | ALT | 25Comment: Testing | 10 - 65 U/L | EXTERNAL | | | | performed at [facility] [place] | | LAB | | | | [facility];[place] | | | | | | [address] | | | | + + + [...] | | | | | at [facility] [place] [place];[address] | | | | | | [facility];[place] [address] | | | | + + + + + -+ | CK, Total | 53 (L)Comment: Testing | 55 - 400 U/L | EXTERNAL | | | | performed at [facility] [place];[address] | | LAB | | | | [address];[place] | | | | | | [address] | | | | + + + [...] | | | | performed at [facility] [place];[address] | | | | | | [address];[place] | | | | | | [address] | | | | + + + + + -+ | aPTT, | 21 (L)Comment: Testing | 23 - 32 seconds | EXTERNAL | | | Patient | performed at [facility] [place] | | LAB | | | | [address];[place] | | | | | | [address] | | | | + + + + + -+ | CK-MB | 1.1Comment: Testing | 0.5 - 3.6 ng/mL | EXTERNAL | | | | performed at [facility] [place];[address] | | LAB | | | | [address];[place], [place] | | | | | | [address] | | | | + + + [...] | | | | | | ACUTE [place] Testing | | | | | | performed at [facility] [place];[address] | | | | | | [address];[place], [place] | | | | | | [address] | | | | + + + [...]
--- OUTSIDE RECORDS SUMMARY | ~2019-12-20 | XMS | Encounter Summary ---
Demographics + + + | Address | [address] | | | [place] [address] | + + + | Home Phone | | + + + | Preferred Language | Unknown | + + + | Marital Status | | + + + | Scientologist Affiliation | 1013 | + + + | Race | Unknown | + + + | Ethnic Group | Unknown | + + + Author + + + | Author | [facility] | | | and [place] | + + + | Organization | [facility] | | | [...] | | | | | [place] [address] | | + + + + + | Melissa Sheldon | ECON | [address] | | | | | [place] [address] | | + + + + + Care Team Providers + +------+ + | Care Student Services Dean Name | Role | Phone | + +------+ + | Jona Deal MD | PCP | | + +------+ + Encounter Details +--------+ + + + + | Date | Type | Department | Care Team | Description | +--------+ + + + + | 08/16/ | Hospital | [facility] | Offenstein, | BOOP (bronchiolitis | | 2012 - | Encounter | MED CTR XRAY [address] | Carmelita Penny MD | obliterans with | | | | [place] | | organizing | | 08/18/ | | [place] [address] | | pneumonia) (HCC) | | 2012 | | [phone] | | | +--------+ + + + [...] [place] | | | | | | [address] | | | | | | | | +--------+---------+ + + + | 01/12/ | Office | Neurology | Erica Nova | | | 2020 | Visit | | MD Sebastian [address] | | | | | | [place] | | | | | | [place] [address] | | | | | | [phone] | | | | | | | [...] Performed At | + + + | [facility] | [place] | | Department [address] [place] [address] | [facility] | | [ rep [address]] [ rep [facility] | | st zip] Signed | - IMAGING | | | | | Patient Name: RON SHELDON V Physician: | | | : 1935 Age: 77 Sex: M Unit #: [id number] | | | Exam Date: 08/16/12 Location: [facility] | | | Report #: [id number] Page: | | | %(RAD)RES..mtdd.print.filter("pg") of %(RAD) | | | RES..mtdd.print.filter("tpg") | | | | | | Accession Number: [id number] | | | CHEST X-RAY CLINICAL HISTORY: [...] Transcribed Date/Time: | | | 08/16/2012 11:23 Child Caregiver Private Home: | | | <<Signature on File>> | | | Mart | | | MD [place]08/16/12 1431 <Electronically signed by Mart Boyle MD> | | | Mart Boyle MD 08/16/12 1114 Child Caregiver Private Home: [employer] | | | Rsmymqruheely50/25/13 1123 Carmelita Mckeon MD | | | | | + + + + + + + + | Performing | Address | City/State/Zipcode | Phone Number | | Organization | | | | + + + + + | [facility] | [address] 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
--- OUTSIDE RECORDS SUMMARY | ~2019-12-20 | XMS | Encounter Summary ---
Demographics + + + | Address | [address] | | | [place] [address] | + + + | Home Phone [...] | | | | | [place] [address] | | + + + + + | Melissa Sheldon | ECON | [address] | | | | | [place] [address] | | + + + + + Care Team Providers + +------+ + | Care Electrical Prospector Name | Role | Phone | + [...] + | 06/01/ | Office | [facility] | Carlieenstein, | BOOP (bronchiolitis | | 2011 | Visit | PULMONARY [address] | Carmelita Penny MD | obliterans with | | | | [place], | | organizing | | | | [place] [address] | | pneumonia) ([facility]); | | | | [phone] | | Hypoxemia; Chronic | | | | | | rhinitis; | | | | | | 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 He is wearing it reliably at [facility]. He is coughing almost not at all, [...] still desaturating at night, per [facility]'s request. - Pulse oximetry titration today [...] [place] | | | | | | [id number] | | | | | | | | +--------+---------+ + + + | 01/12/ | Office | Neurology | Erica Nova | | | 2020 | Visit | | MD Sebastian [address] | | | | | | [place] | | | | | | [place] [address] | | | | | | [phone] | | | | | | | [...] | | | | | | pneumonia) ([facility]) | | + + +--------+ + + | Pulse oximetry, | Respiratory | Routin | BOOP | Expected: | | overnight study | Care | e | (bronchiolitis | 06/03/2012, Expires: | | | | | obliterans with | 06/02/2013 | | | | | organizing | | | | | | pneumonia) ([facility]) | | + + +--------+ + + documented as of this encounter Results XR Chest PA and Lateral (06/01/2012 2:14 PM PST) + + | Specimen | + + | | + + + + + | Narrative | Performed At | + + + | [facility] | [place] | | [address] [place] | [place] | | [ rep [address]] [ rep ct [facility] | | st zip] Signed | - IMAGING | | | | | Patient Name: RON SHELDON V Physician: | | | DOROTEO. : 1935 Age: 77 Sex: M Unit #: [id number] | | | Exam Date: 06/01/12 Location: [facility] | | | Report #: [id number] Page: | | | %(RAD)RES..mtdd.print.filter("pg") of %(RAD) | | | RES..mtdd.print.filter("tpg") | | | | | | Accession Number: [id number] | | | CHEST PA AND LATERAL, [...] Transcribed Date/Time: 06/01/2012 15:42 | | | Shorer: <<Signature on File>> | | | | | | Rakesh Guerrero MD06/01/122004 <Electronically signed by Rakesh Whitmore | | | Yolanda TERAN> Rakesh Guerrero MD 06/01/12 1414 | | | Shorer: LiveRSVP Metiztqbosxxe24/11/12 1542 | | | Carmelita Mckeon MD | | + + + + + + + + | Performing | Address | City/State/Zipcode | Phone Number | | Organization | | | | + + + + + | [facility] | [address] | [place] | [phone] | | [facility] | | [address] | | | - IMAGING | | [...]
--- OUTSIDE RECORDS SUMMARY | ~2019-12-20 | XMS | Encounter Summary ---
Demographics + + + | Address | [address] | | | [place] [address] | + + + | Home Phone [...] | | | | | [place] [address] | | + + + + + | Melissa Daley | ECON | [address] | | | | | [place] [address] | | + + + + + Care Team Providers + +------+ + | Care Renewable Energy Consultant Name | Role | Phone | [...] | obliterans with | | | | [place], | | organizing | | | | [place] [address] | | pneumonia) (HCC) | | | | [phone] | | | +--------+ + + + [...] [place] | | | | | | [address] | | | | | | | | +--------+---------+ + + + | 01/12/ | Office | Neurology | Erica Nova | | | 2019 | Visit | | MD Sebastian [address] | | | | | | [place] | | | | | | [place] [address] | | | | | | [phone] | | | | | | | | +--------+---------+ + + + documented as of this encounter Visit Diagnoses + + | Diagnosis | + + | 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
--- OUTSIDE RECORDS SUMMARY | ~2019-12-20 | XMS | Encounter Summary ---
Demographics + + + | Address | [address] | | | [place] [address] | + + + | Home Phone | | + + + | Preferred Language | Unknown | + + + | Marital Status | | + + + | Catholic Affiliation | 1013 | + + + | Race | Unknown | + + + | Ethnic Group | Unknown | + + + Author + + + | Author | [facility] | | | and [place] | + + + | Organization | [facility] | | | [...] | | | | | [place] [address] | | + + + + + | Melissa Daley | ECON | [address] | | | | | [place] [address] | | + + + + + Care Team Providers + +------+ + | Care Management Accountant Name | Role | Phone | + [...] | | [address] | [place] [address] | | | | | | [place], | Phone: | | | | | | [place] | [phone] | | | | | | [address] | Fax: | | | | | | Phone: | [phone] | | | | | | [phone] | | | | | | | Fax: | | | | | | | [phone] | | +--------+--------+ + + + + Encounter Details +--------+---------+ + + + | Date | Type | Department | Care Team | Description | +--------+---------+ + + + | 07/28/ | Office | [facility] | Donnie Palacios, | Plantar fasciitis of | | 2017 | Visit | ORTHOPEDIC SURGERY | MD [address] | right foot (Primary | | | | [address] [place] | [place] | Dx) | | | | [place] | [id number] | | | | | [address] | | | | | | [phone] | | | +--------+---------+ + + + [...] remodeling 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
--- OUTSIDE RECORDS SUMMARY | ~2019-12-20 | XMS | Encounter Summary ---
Demographics + + + | Address | [address] | | | [place] [address] | + + + | Home Phone | | + + + | Preferred Language | Unknown | + + + | Marital Status | | + + + | Latter-Day Affiliation | 1013 | + + + [...] | | | | | [place] [address] | | + + + + + | Melissa Daley | ECON | [address] | | | | | [place] [address] | | + + + + + Care Team Providers + +------+ + | Care Refinery Operator Helper Name | Role | Phone | + +------+ + PCP | Unavailable | + +------+ + Encounter Details +--------+ + + + + | Date | Type | Department | Care Team | Description | +--------+ + + + + | 04/09/ | Hospital | [facility] | | | | 2000 | Encounter | MED CTR XRAY [address] | | | | | | [address] [place] | | | | | | [place] [address] | | | | | | [phone] | | | +--------+ + + + [...] GARCIA | | | | | | [address] | | | | | | | | +--------+---------+ + + + | 01/12/ | Office | Neurology | Erica Nova | | 2019 | Visit | | MD [address] | | | | | | [place] | | | | | | [place] [address] | | | | | | [phone] | | | | | | | | +--------+---------+ + + + documented as of this encounter Visit Diagnoses Not on filedocumented in this encounter"
--- OUTSIDE RECORDS SUMMARY | ~2019-12-20 | XMS | Encounter Summary ---
Demographics + + + | Address | [address] | | | [place] [address] | + + + | Home Phone | | + + + | Preferred Language | Unknown | + + + | Marital Status | | + + + | Jew Affiliation | 1013 | + + + | Race | Unknown | + + + | Ethnic Group | Unknown | + + + Author + + + | Author | [facility] | | | and [place] | + + + | Organization | [facility] | | [...] | | | | | [place] [address] | | + + + + + | Melissa Daley | ECON | [address] | | | | | [place] [address] | | + + + + + Care Team Providers + +------+ + | Care Interactive Producer Name | Role | Phone | + [...] | | | | | | [place] [address] | | | | | | [phone] | | | +--------+ + + + [...] [place] | | | | | | [address] | | | | | | | | +--------+---------+ + + + | 01/12/ | Office | Neurology | Erica Nova | | 2019 | Visit | | MD Sebastian [address] | | | | | | [place] | | | | | | [place] [address] | | | | | | [phone] | | | | | | | | +--------+---------+ + + + documented as of this encounter Visit Diagnoses Not on filedocumented in this encounter"
--- OUTSIDE RECORDS SUMMARY | ~2019-12-20 | XMS | Encounter Summary ---
Demographics + + + | Address | [address] | | | [place] [address] | + + + | Home Phone [...] | | | | | [place] [address] | | + + + + + | Melissa Sheldon | ECON | [address] | | | | | [place] [address] | | + + + + + Care Team Providers + +------+ + | Care Yarn Examiner Skeins Name | Role | Phone | + +------+ + | Jona Deal MD | PCP | | + +------+ + Encounter Details +--------+ + + + + | Date | Type | Department | Care Team | Description | +--------+ + + + + | 04/01/ | Hospital | [facility] | Offenstein, | BOOP (bronchiolitis | | 2013 | Encounter | MED CTR XRAY [address] | Carmelita Penny MD | obliterans with | | | | [place] | | organizing | | | | [place] [address] | | pneumonia) (HCC) | | | | [phone] | | | +--------+ + + + [...] [place] | | | | | | [address] | | | | | | | | +--------+---------+ + + + | 01/12/ | Office | Neurology | Erica Nova | | 2019 | Visit | | MD Sebastian [address] | | | | | | [place] | | | | | | [place] [address] | | | | | | [phone] | | | | | | | [...] Performed At | + + + | [facility] | HUME | | Department [address] [facility] [place] | [facility] | | [ rep ct [address]] [ rep ct [facility] | | st zip] Signed | - IMAGING | | | | | Patient Name: RON SHELDON V Physician: | | | CARMENE. : 1935 Age: 78 Sex: M Unit #: [id number] | | | Exam Date: 04/01/13 Location: [facility] [place] | | | Report #: [id number] Page: | | | %(RAD)RES..mtdd.print.filter("pg") of %(RAD) | | | RES..mtdd.print.filter("tpg") | | | | | | Accession Number: [id number] | | | CHEST X-RAY CLINICAL HISTORY: [...] | | | Transcribed Date/Time: 04/01/2013 13:30 Survival Equipment Repairer: | | | <<Signature on File>> | | | Mart | | | MD [place]04/01/13 9642 <Electronically signed by Mart Boyle MD> | | | Mart Boyle MD 04/01/13 1307 Survival Equipment Repairer: Cayetano | | | Fzwertrhxunks64/11/13 1330 Carmelita Mckeon MD | | | | | + + + + + + + + | Performing | Address | City/State/Zipcode | Phone Number | | Organization | | | | + + + + + | [facility] | [address] 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
--- OUTSIDE RECORDS SUMMARY | ~2019-12-20 | XMS | Encounter Summary ---
Demographics + + + | Address | [address] | | | [place] [address] | + + + | Home Phone [...] Organization | [facility] | | | and [place] | + + + | Address | Unknown | + + + | Phone | Unavailable | + + + Support + + + + + | Name | Relationship | Address | Phone | + + + + + | Katie Yusuf | ECON | [address] | | | | | [place] [address] | | + + + + + | Melissa Daley | ECON | [address] | | | | | [place] [address] | | + + + + + Care Team Providers + +------+ + | Care Procurement Clerk Name | Role | Phone | + [...] Telephone | [facility] | Jared Mcneal, | Other | | 2011 | | PULMONARY [address] | RN | | | | | [place], | | | | | | [place] [address] | | | | | | [phone] | | | +--------+ + + + [...] encounter Miscellaneous Notes Telephone Encounter - Jared Mcneal RN - 06/03/2012 2:30 PM PSTSusan Velasquez and relay ed this message. Okay per patient.Electronically signed by Jared Mcneal RN at 2 2:30 PM PSTTelephone Encounter - Jared Mcneal RN - 06/03/2012 2:29 PM PSTKoby masters opied by JARED MCNEAL on ThuJun 03, 2012 1429 ------ Message [...] [place] | | | | | | [address] | | | | | | | | +--------+---------+ + + + | 01/12/ | Office | Neurology | Erica Nova | | 2019 | Visit | | MD Sebastian [address] | | | | | | [place] | | | | | | [place] [address] | | | | | | [phone] | | | | | | | | +--------+---------+ + + + documented as of this encounter Visit Diagnoses Not on filedocumented in this encounter"
--- OUTSIDE RECORDS SUMMARY | ~2019-12-20 | XMS | Encounter Summary ---
Demographics + + + | Address | [address] | | | [place] [address] | + + + | Home Phone | | + + + | Preferred Language | Unknown | + + + | Marital Status | | + + + | Judaism Affiliation | 1013 | + + + | Race | Unknown | + + + | Ethnic Group | Unknown | + + + Author + + + | Author | [facility] | | | and [place] | + + + | Organization | [facility] | | [...] | | | | | [place] [address] | | + + + + + | Melissa Daley | ECON | [address] | | | | | [place] [address] | | + + + + + Care Team Providers + +------+ + | Care Block Cableman Name | Role | Phone | + [...] | Respiratory failure | | | | [place], | | ([facility]); Chronic | | | | [place] [address] | | hypoxemic | | | | [phone] | | respiratory failure | | | | | | ([facility]); Pneumonia; | | | | | | [...] [place] | | | | | | [address] | | | | | | | | +--------+---------+ + + + | 01/12/ | Office | Neurology | Erica Nova | | | 2019 | Visit | | MD Sebastian [address] | | | | | | [place] | | | | | | [place] [address] | | | | | | [phone] | | | | | | | [...]
--- OUTSIDE RECORDS SUMMARY | ~2019-12-20 | XMS | Encounter Summary ---
Demographics + + + | Address | [address] | | | [place] [address] | + + + | Home Phone [...] | | | | | [place] [address] | | + + + + + | Melissa Sheldon | ECON | [address] | | | | | [place] [address] | | + + + + + Care Team Providers + +------+ + | Care Legal Examiner Name | Role | Phone | + +------+ + | Jona Deal MD | PCP | | + +------+ + Encounter Details +--------+ + + + + | Date | Type | Department | Care Team | Description | +--------+ + + + + | 06/23/ | Hospital | [facility] | Offenstein, | BOOP (bronchiolitis | | 2012 - | Encounter | MED CTR XRAY [address] | Carmelita Penny MD | obliterans with | | | | [place] | | organizing | | 06/25/ | | [place] [address] | | pneumonia) (HCC) | | 2012 | | [phone] | | | +--------+ + + + [...] | | | | pneumonia) ([facility]) | | | | | | [...] | | | | pneumonia) ([facility]) | | | | | | [...] [place] | | | | | | [address] | | | | | | | | +--------+---------+ + + + | 01/12/ | Office | Neurology | Erica Nova | | | 2020 | Visit | | MD Sebastian [address] | | | | | | [place] | | | | | | [place] [address] | | | | | | [phone] | | | | | | | [...] Performed At | + + + | [facility] Diagnostic Imaging | [place] | | Department [address] [facility] | [facility] | | [ rep ct [address]] [ rep [facility] | | st zip] Signed | - IMAGING | | | | | Patient Name: RON SHELDON Anabelle Physician: | | | DOROTEO. : 1935 Age: 77 Sex: M Unit #: [id number] | | | Exam Date: 06/23/12 Location: [facility] [place] | | | Report #: [id number] Page: | | | %(RAD)RES..mtdd.print.filter("pg") of %(RAD) | | | RES..mtdd.print.filter("tpg") | | | | | | Accession Number: [id number] | | | TWO-VIEW CHEST CLINICAL HISTORY: [...] Transcribed Date/Time: 06/23/2012 13:44 | | | Chemistry Faculty Member: <<Signature on File>> | | | | | | Tan Keenan MD06/23/12 4654 <Electronically signed by | | | Tan Keenan MD> Tan Keenan MD 06/23/12 | | | 1339 Chemistry Faculty Member: Cayetano Laicjzmnuqyqt62/02/13 1344 | | | Carmelita Mckeon MD | | + + + + + + + + | Performing | Address | City/State/Zipcode | Phone Number | | Organization | | | | + + + + + | [facility] | [address] 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
--- OUTSIDE RECORDS SUMMARY | ~2019-12-20 | XMS | Encounter Summary ---
Demographics + + + | Address | [address] | | | [place] [address] | + + + | Home Phone [...] | | | | | [place] [address] | | + + + + + | Melissa Sheldon | ECON | [address] | | | | | [place] [address] | | + + + + + Care Team Providers + +------+ + | Care Health Data Analyst Name | Role | Phone | + [...] + | 06/23/ | Office | [facility] | Carlieenstein, | BOOP (bronchiolitis | | 2012 | Visit | PULMONARY [address] | Carmelita Penny MD | obliterans with | | | | [place], | | organizing | | | | [place] [address] | | pneumonia) (HCC) | | | | [phone] | | (Primary Dx); | | | [...] note he occasionally has gotten dizzy with [employer] around. His oxygen level has been running [...] breath sounds are diminished bilaterally, no wheezes, scrap separator ckles or rhonchi Chest Wall: No deformity [...] [place] | | | | | | [address] | | | | | | | | +--------+---------+ + + + | 01/12/ | Office | Neurology | Erica Nova | | 2019 | Visit | | MD Sebastian [address] | | | | | | [place] | | | | | | [place] [address] | | | | | | [phone] | | | | | | | | +--------+---------+ + + + documented as of this encounter Results XR Chest PA and Lateral (07/21/2012 11:21 AM PST) + + | Specimen | + + | | + + + + + | Narrative | Performed At | + + + | [facility] | WEVER | | Department [address] [place] [address] | [facility] | | [ rep ct street1[address]] [ rep [facility] | | st zip] Signed | - IMAGING | | | | | Patient Name: RON SHELDON V Physician: | | | OFFE. : 1935 Age: 77 Sex: M Unit #: [id number] | | | Exam Date: 07/21/12 Location: [facility] [place] | | | Report #: [id number] Page: | | | %(RAD)RES..mtdd.print.filter("pg") of %(RAD) | | | RES..mtdd.print.filter("tpg") | | | | | | Accession Number: [id number] | | | PA AND LATERAL TWO [...] Transcribed Date/Time: | | | 07/21/2012 11:27 Indirect Sales Exec: | | | <<Signature on File>> | | | Kiko | | | Melina Hair MD07/21/121920 <Electronically signed by Kiko Summers | | | Laxmi TERAN> Kiko Hair MD 07/21/12 1121 | | | Indirect Sales Exec: Cayetano Uvlcwswfdthpb18/30/13 1127 | | | Carmelita Mckeon MD | | + + + + + + + + | Performing | Address | City/State/Zipcode | Phone Number | | Organization | | | | + + + + + | [facility] | [address] | [place] | [phone] | | [facility] | | [address] | | | - IMAGING | | | | + + + + + XR Chest PA and Lateral (06/23/2012 1:39 PM PST) + + | Specimen | + + | | + + + + + | Narrative | Performed At | + + + | [facility] | [facility] | | Department [address] [place] [address] | [facility] | | [ rep ct street1+2] [ rep [facility] | | st [facility]] Signed | - IMAGING | | | | | Patient Name: RON SHELDON V Physician: | | | OFFE. : 1935 Age: 77 Sex: M Unit #: [id number] | | | Exam Date: 06/23/12 Location: [facility] | | | Report #: [id number] Page: | | | %(RAD)RES..mtdd.print.filter("pg") of %(RAD) | | | RES..mtdd.print.filter("tpg") | | | | | | Accession Number: [id number] | | | TWO-VIEW CHEST CLINICAL HISTORY: [...] Transcribed Date/Time: 06/23/2012 13:44 | | | Indirect Sales Exec: <<Signature on File>> | | | | | | Tan Keenan MD06/23/12 0162 <Electronically signed by | | | Tan Keenan MD> Tan Keenan MD 06/23/12 | | | 6029 Indirect Sales Exec: BCN[employer] Rlsgrlkdidnse46/02/13 2836 | | | Carmelita Mckeon MD | | + + + + + + + + | Performing | Address | City/State/Zipcode | Phone Number | | Organization | | | | + + + + + | [facility] | [address] | [place], [place] | [phone] | | [facility] | | [address] | | | - IMAGING | | [...]
--- OUTSIDE RECORDS SUMMARY | ~2019-12-20 | XMS | Encounter Summary ---
Demographics + + + | Address | [address] | | | [place] [address] | + + + | Home Phone [...] | | | | | [place] [address] | | + + + + + | Melissa Daley | ECON | [address] | | | | | [place] [address] | | + + + + + Care Team Providers + +------+ + | Care Blanking Machine Operator Name | Role | Phone [...] | calculus (Primary | | | | [place], [place] | [place], [place] | Dx) | | | | [address] | [address] | | | | | [phone] | | | +--------+ + + + [...] [place] | | | | | | [address] | | | | | | | | +--------+---------+ + + + | 01/12/ | Office | Neurology | Erica Nova | | | 2019 | Visit | | MD Sebastian [address] | | | | | | [place] | | | | | | [place] [address] | | | | | | [phone] | | | | | | | | +--------+---------+ + + + + +---------+--------+ + + | Name | Type | Priori | Associated Diagnoses | Order Schedule | | | | ty | | | + +---------+--------+ + + | XR Abdomen AP | Imaging | Routin | Left ureteral | Expected: 12/23/2019 | | | | e | calculus | (Approximate), | | | | | | Expires: 12/18/2020 | + +---------+--------+ + + documented as of this encounter Visit Diagnoses + + | Diagnosis | + + | Left ureteral calculus - Primary Calculus of ureter | + + documented in this encounter"
--- OUTSIDE RECORDS SUMMARY | ~2019-12-20 | XMS | Encounter Summary ---
Demographics + + + | Address | [address] | | | [place] [address] | + + + | Home Phone [...] | | | | | [place] [address] | | + + + + + | Melissa Daley | ECON | [address] | | | | | [place] [address] | | + + + + + Care Team Providers + +------+ + | Care Labor Arbitrator Name | Role | Phone | + +------+ + PCP | Unavailable | + +------+ + Encounter Details +--------+ + + + + | Date | Type | Department | Care Team | Description | +--------+ + + + + | 04/16/ | Hospital | [facility] | | | | 2000 - | Encounter | MED CTR OP REHAB | | | | | | [address] | | | | 04/20/ | | [place] [address] | | | | 2000 | | [phone] | | | +--------+ + + + [...] [place] | | | | | | [address] | | | | | | | | +--------+---------+ + + + | 01/12/ | Office | Neurology | Erica Nova | | | 2019 | Visit | | MD Sebastian [address] | | | | | | [place] | | | | | | [place] [address] | | | | | | [phone] | | | | | | | | +--------+---------+ + + + documented as of this encounter Visit Diagnoses Not on filedocumented in this encounter"
--- OUTSIDE RECORDS SUMMARY | ~2019-12-20 | XMS | Encounter Summary ---
Demographics + + + | Address | [address] | | | [place] [address] | + + + | Home Phone [...] | | | | | [place] [address] | | + + + + + | Melissa Daley | ECON | [address] | | | | | [place] [address] | | + + + + + Care Team Providers + +------+ + | Care Retail Tire Sales Manager Name | Role | Phone | [...] Penny MD | | | | | [place], | | | | | | [place] [address] | | | | | | [phone] | | | +--------+--------+ + + + [...] [place] | | | | | | [address] | | | | | | | | +--------+---------+ + + + | 01/12/ | Office | Neurology | Erica Nova | | | 2019 | Visit | | MD Sebastian [address] | | | | | | [place] | | | | | | [place] [address] | | | | | | [phone] | | | | | | | [...]
--- OUTSIDE RECORDS SUMMARY | ~2019-12-20 | XMS | Encounter Summary ---
Demographics + + + | Address | [address] | | | [place] [address] | + + + | Home Phone | | + + + | Preferred Language | Unknown | + + + | Marital Status | | + + + | Restorationist Affiliation | 1013 | + + + [...] | | | | | [place] [address] | | + + + + + | Melissa Sheldon | ECON | [address] | | | | | [place] [address] | | + + + + + Care Team Providers + +------+ + | Care Groundwater Consultant Name | Role | Phone | [...] + + | 08/16/ | Office | [facility] | Mike, | BOOP (bronchiolitis | | 2013 | Visit | PULMONARY [address] | Carmelita Penny MD | obliterans with | | | | [place], | | organizing | | | | [place] [address] | | pneumonia) ([facility]) | | | | [phone] | | (Primary Dx); | | | [...] [place] | | | | | | [address] | | | | | | | | +--------+---------+ + + + | 01/12/ | Office | Neurology | Erica Nova | | | 2020 | Visit | | MD Sebastian [address] | | | | | | [place] | | | | | | [place] [address] | | | | | | [phone] | | | | | | | | +--------+---------+ + + + documented as of this encounter Results XR Chest PA and Lateral (09/29/2012 12:27 PM PDT) + + | Specimen | + + | | + + + + + | Narrative | Performed At | + + + | [facility] Diagnostic [facility] | [place] | | Department [address] [place] , [place] | [facility] | | [ rep ct street1[address]] [ rep ct [facility] | | st zip] Signed | - IMAGING | | | | | Patient Name: RON SHELDON V Physician: | | | DOROTEO. : 1935 Age: 77 Sex: M Unit #: [id number] | | | Exam Date: 09/29/12 Location: [facility] | | | Report #: [id number] Page: | | | %(RAD)RES..mtdd.print.filter("pg") of %(RAD) | | | RES..mtdd.print.filter("tpg") | | | | | | Accession Number: [id number] | | | CHEST, PA AND LATERAL, [...] | | | Transcribed Date/Time: 09/29/2012 12:33 Produce Clerk: | | | <<Signature on File>> | | | Mart | | | MD [place]09/29/12 1551 <Electronically signed by Mart Boyle MD> | | | Mart Boyle MD 09/29/12 1227 Produce Clerk: Inhibitexangela | | | Utfukvphqilkr53/10/13 1233 Carmelita Mckeon MD | | | | | + + + + + + + + | Performing | Address | City/State/Zipcode | Phone Number | | Organization | | | | + + + + + | [facility] | [address] | [place] | [phone] | | [facility] | | [address] | | | - IMAGING | | [...]
--- OUTSIDE RECORDS SUMMARY | ~2019-12-20 | XMS | Encounter Summary ---
Demographics + + + | Address | [address] | | | [place] [address] | + + + | Home Phone | | + + + | Preferred Language | Unknown | + + + | Marital Status | | + + + | Jew Affiliation | 1013 | + + + | Race | Unknown | + + + | Ethnic Group | Unknown | + + + Author + + + | Author | [facility] | | | and [place] | + + + | Organization | [facility] | | [...] | | | | | [place] [address] | | + + + + + | Melissa Daley | ECON | [address] | | | | | [place] [address] | | + + + + + Care Team Providers + +------+ + | Care Creel Clerk Name | Role | Phone | [...] + + | 12/14/ | Hospital | [facility] | HemaKiko, | Ureteral calculus, | | 2019 - | Encounter | MED CTR SURGICAL | [address] | left; | | | | [address] [place] | [place], [place] | Hydronephrosis, | | 12/15/ | | [place] [address] | [id number] | left; Renal colic on | | 2019 | | [phone] | | left side; Acute | | [...] voiding. Follow up: Call Dr Garrido's office ([phone]) to set up your follow-up appointment or [...] 1935 Date of Admission: 12/15/2019 Requesting/Referring Physician: [facility] emergency department Chief Complaint: 11 mm [...] a visit to the emergency department at [facility]. While at [facility], CT imaging was performed which demonstrated [...] x2 TONSILLECTOMY TOTAL KNEE ARTHROPLASTY Right 1996 Home Medications: Medications Prior to Admission Medication [...] file Gets together: Not on file Attends congregational service: Not on file Active member of [...] 175 04/30/2014 PLT 169 12/15/2019 Creatinine at [facility] today is reported to be 1.5. Lab [...] surgical procedure and anesthesia including DVT, PE, NC, CVA, and even . Ron indicates his [...] Electronically signed by: Kiko Garrido MD 12/15/2019 [facility] documented in this en counter Miscellaneous Notes Plan of Carmelita Britton MSW - 12/16/2019 5:33 PM PDT Problem: Discharge Planning Goal: Patient's discharge needs will be identified in a timely manner Outcome: Met Goal: Patient will be discharged in a safe manner Outcome: Met This assistant case manager met with Ron to discuss his discharge plan. Ron states that he lives with his spouse Melissa in [place] at the [facility]. He states that he can d o his own ADLs. He doesn't use any A/D. The nursing home home helps with cleaning, providing m eals. He takes his own meds. He feels he is still independent and Melissa helps with medication management. His daughter is Katie Yusuf. She will be providing transportation back to his [facility] today. This CM met with Katie prior to Ron being discharged. We dicussed his OBS status. Provide d a brochure and a ALFRED form. Ron signed it and this CM provided him with a copy. Katie feels he is safe to return home today. PCP is Nilo, he uses [facility] in [place]. PLAN: Home with spouse, daughter Katie to [...] facility i n [place]. All questions answered. lan of Destiny Ocampo Chaplain - 12/16/2019 10:12 AM PDT Spiritua l Chun Daley is a 84 y.o. male who is admitted for ureteral stone left ureteral calculus LEFT URETERAL CALCULUS. Talent Acquisition Operations Manager visit was part of routine rounding. Spiritual Evaluation: The patient was sitting up in his bed on the surgical unit and welcomed a spiritual care vi sit. He was immediately pleasant and engaging. The patient has a long, deep, and positive e xperience in his marriage, work and worship. He lives at an assisted living facility with hi s , whose health is challenged, but he sees her resilience. He has been over 75 years and worked over 65 years. 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 His daughter works here and came to his bedside during our vis it. He is accepting of the need for surgery and has experienced this issue several times, s ome times needing hospitalization, other times not. Spiritual Interventions: The metal miner attended, offered care, explored patient's life story [...] the night. Electr onically signed by Letitia aRndall RN at 12/16/2019 4:34 AM PDTOp Note - Kiko Garrido M D - 12/15/2019 7:02 PM PDTOperative Note Pt. Name/Age/: Ron Daley 84 y.o. 1935 Med. Record Number: [id number] Date of Operation/Procedure: 12/15/2019 Preoperative Diagnosis: 11 mm mid left ureteral calculus Left hydronephrosis Left renal colic Acute Kidney Injury Postoperative Diagnosis: 11 mm mid left ureteral calculus Left hydronephrosis Left renal colic Acute Kidney Injury Surgeon: Kiko Garrido MD Fur Repairer(s): None Anesthesia Provider(s): Anesthesiologist: Pietro Tang MD [...] guidance up into the renal pelvis. A 7-Ethiopian X 26 cm double-J stent was placed [...] Garrido MD, 12/15/2019 7:02 PM PDT [facility] documented in this en counter Plan [...] | | | | | [place] [address] | | | | | | [phone] | | | | | | | [...] | [facility] | [address] | [place] | [phone] | | [facility] | | [address] | | | - LABORATORY | | [...] | | | | g/dL | [facility] | | | | | | MEDICAL [...] + | [facility] | [address] | [place] | [phone] | | [facility] | | [address] | | | - LABORATORY | | [...] [facility] | | | | | | [facility] | | | | | | [...] not | 58 (L)Comment: | >=60 | [facility] | | | | GLOMERULAR FILTRATION | mL/min/1.73m2 | [facility] | | | JAPANESE | RATE,ESTIMATED | | MEDICAL | | | | mL/min/1.21y9Vgus than | | CENTER - | | [...] [address] | [place] | [phone] | | [facility] | | [address] | | | - LABORATORY | | | | + + + + + [place] C-Kendrick Stats No Charge (12/15/2019 6:58 PM PDT) [...] [address] | [place] | [phone] | | [facility] | | [address] | | | - LABORATORY | | [...] 1.39 (H) | 0.70 - 1.30 | [facility] | | | | | mg/dL | [facility] | | | | | | MEDICAL | | | | | | CENTER - | | | | | | LABORATORY | | + + + + + + | eGFR if not | 48 (L)Comment: | >=60 | [facility] | | | | GLOMERULAR FILTRATION | mL/min/1.73m2 | [facility] | | | JAPANESE | RATE,ESTIMATED | | MEDICAL | | | | mL/min/1.45e1Wvhs than | | CENTER - | | [...] + | [facility] | [address] | [place] | [phone] | | [facility] | | [address] | | | - LABORATORY | | [...] | | | | LILLIAN PEARSON MD ([id number]) | | | | | | on [...] [address] | [place] | [phone] | | [facility] | | [address] | | | - LABORATORY | | [...] | | C, Starting Laura 12/15/19 at 2003, | | | May [...] | | | | First dose on [facility] 12/15/19 at 2100 | | AM [...] | | | | | | Starting [facility] 12/15/19 at 1659, For | | [...] | | | | First dose on [facility] 12/15/19 at 2100 | | AM [...] PDT | | | | | Starting [facility] 12/15/19 at 1700 | | | | | | + +-------+ +------+---+---+ + +---+ | | | + +---+ | ondansetron (ZOFRAN) injection | | | 4 mg 4 mg, Intravenous, EVERY 6 | | | HOURS PRN, Nausea, Vomiting, | | | Starting [facility] 12/15/19 at 2004, | | | [...]
--- OUTSIDE RECORDS SUMMARY | ~2019-12-20 | XMS | Encounter Summary ---
Demographics + + + | Address | [address] | | | [place] [address] | + + + | Home Phone [...] | | | | | [place] [address] | | + + + + + | Melissa Daley | ECON | [address] | | | | | [place] [address] | | + + + + + Care Team Providers + +------+ + | Care Science Center Display Builder Name | Role | Phone | [...] | | BOOP | [place], | [address] | | | | | (bronchiolit | Carmelita B, | [place], | | | | | is | MD [address] | [place] [address] | | | | | obliterans | [address] | Phone: | | | | | with | [place], | [phone] | | | | | organizing | [place] [address] | Fax: | | | | | pneumonia) | | [phone] | | | | | (HCC) | | | | | | | Procedures | | | | | | | CT Chest wo | | | | | | | Contrast | | | +--------+--------+ + + + + Reason for Visit + + + | Reason | Comments | + + + | Follow-up | | + + + Encounter Details +--------+---------+ + + + | Date | Type | Department | Care Team | Description | +--------+---------+ + + + | 01/12/ | [facility] | [facility] | [place], | BOOP (bronchiolitis | | 2013 | Visit | PULMONARY [address] | Carmelita Penny MD | obliterans with | | | | [address], | | organizing | | | | [place] [address] | | pneumonia) ([facility]) | | | | [phone] | | (Primary Dx); Sleep | | | | | | related | | | | | | hypoventilation/hypo | | | | | | xemia in conditions | | | | | | classifiable | | | | | | elsewhere; DM type 2 | | | | | | (diabetes mellitus, | | | | | | type 2) ([facility]); | | | | | | Sleepiness | +--------+---------+ + + + Social History [...] + + + | Blood Pressure | 144/76 | 01/12/2014 10:02 AM | | | | | PDT | | + + + + + | Pulse | 60 | 01/12/2014 10:02 AM | | | | | PDT | | + + + + + | Temperature | - | - | | + + + + + | Respiratory Rate | - | - | | + + + + + | Oxygen Saturation | 96% | 01/12/2014 10:02 AM | | | | | PDT | | + + + + + | Inhaled Oxygen | - | - | | | Concentration | | | | + + + + + | Weight | 106 kg (233 lb 11.2 | 01/12/2014 10:02 AM | | | | oz) | PDT | | + + + + + | Height | 175.3 cm (5' 9") | 01/12/2014 10:02 AM | | | | | PDT | | + + + + + | Body Mass Index | 34.51 | 01/12/2014 10:02 AM | | | | | PDT | | + + + + + documented in this encounter Patient Instructions Patient Instructions Carmelita Mckeon MD - 01/12/2014 10:50 AM PDTGo ahead and stop b lood sugar checks. Schedule CT scan (ask if they can do today, but I do not know). We can do labs to follow the blood sugar averages. Do sleepiness questionnaire. Electronically signed by Carmelita Mckeon MD at 10:51 AM PDT documented in this encounter Progress Notes Carmelita Mckeon MD - 01/12/2014 10:26 AM PDTFormatting of this note might be differe nt from the original. Pulmonary Follow Up HPI Ron Daley is a 78 y.o. male patient of Jona Deal here today for fol low up of BOOP and nocturnal hypoxemia. At their last visit, we had stopped his nocturnal oxygen. His is concerned because she feels like he has not regained all of his strength back, and he sleeps often. 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 He could walk until his ankl e hurt too badly, at least 1/2 a mile. He thinks right now, he could walk about the same dis tance. He notes he recently he worked for 4 hours, but typically works about 2 hours before stopping. He retired in the interim. He has generally been less active. He is going to sleep at 10pm, and getting up at 5-6am. He wakes up twice at night, and goes back to sleep right away. He does snore, but his notes it is not as bad as he used to. She does not feel like he snorts, gasps or chokes. He does occasionally wakes himself up sn oring in his chair when he is napping. He naps most days after lunch, which is intentional a nd unintentional. He naps for about 30 minutes. He wakes up feeling rested from his naps. He wakes up in the mornings feeling more rested. He drinks coffee, usually about 2 cups a day. He used to sleep only 4-5 hours a night and that was all. He feels like he is more tired th an he used to be, in a way excessively so. He feels like his energy got up and went away com pared to what he used to have. He is not coughing at all. He does not have any heartburn, and takes medication for this. 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 fluticasone (FLONASE) 50 mcg/nasal spray [DISCONTINUED] fluticasone (FLONASE) 50 mcg/nasal spray instill 2 sprays into each nost ril once daily 16 g 12 lisinopril (PRINIVIL, ZESTRIL) 10 mg tablet Take 10 mg by mouth Daily. ONE TOUCH ULTRA TEST strip USE TO TEST 4 TIMES DAILY 100 each 3 testosterone (ANDROGEL) 50 mg/5 g (1%) gel Inject 200 mg of testosterone into the muscl e Daily. Every three weeks. Review of Systems Constitutional: Denies fever, chills, and sweats. Has lost about 8 pounds recently. Sleep: See HPI. Eyes: Denies vision change. He got new glasses this spring, and he got some wipes for his eyelashes that help his eyes a lot. ENT: Denies earache, decreased hearing, nosebleeds, sore throat, and hoarseness. He still has a runny nose mostly in the evenings. Resp: See HPI. CV: Denies chest pain, palpitations, syncope, and peripheral edema. GI: Denies nausea, vomiting, and abdominal pain. : Denies difficulty emptying bladder. Nocturia two times a night. Objective BP 144/76 | Pulse 60 | Ht 1.753 m (5' 9") | Wt 106.006 kg (233 lb 11.2 oz) | BMI 34.50 kg/m 2 | SpO2 96% RA General Appearance: Alert, cooperative, no distress, appears stated age Head: Normocephalic, without obvious abnormality, atraumatic Eyes: PERRL, conjunctiva clear, no scleral icterus, EOM's intact Ears: Wearing hearing aides, diminished acuity Nose: Nares normal, septum midline, mucosa edematous Mouth: No oral lesions or exudate, Mallampati 3-4 Neck: Supple, symmetrical, no adenopathy Lungs: No accessory muscle use, breath sounds are somewhat diminished bilaterally, no whe ezes, crackles or rhonchi Chest Wall: No deformity Heart: Regular rate and rhythm, no murmur, rub or gallop Abdomen: Soft, non-tender, non-distended, obese Extremities: No cyanosis, clubbing, or edema Pulses: Radial pulses 2+ and symmetric Skin: Warm and dry Lymph nodes: Cervical and supraclavicular nodes normal Data: Chest x-ray was done on July 26, 2013 and was reviewed and interpreted in clinic today. It shows continued clearing but with basilar linear scarring. Fasting pre dinner blood sugars reviewed and have been running 90-150, usually 100-120. Immunization History Administered Date(s) Administered INFLUENZA, PRESERVATIVE FREE IM 05/25/2012, 03/25/2013 Pneumococcal (Adult) 06/23/2002, 07/21/2012 Assessment 1. 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 His feels he never recovered the stamina he had previously, but he also retired shortly after his hospitalization, never went back t o his previous level of activity, and had his illness in his late 70s, and took prednisone f or a prolonged period of time, which likely caused a significant amount of muscle loss. Unfo rtunately, at his age, the time to recover from that amount of debilitation would be profoun d, and he would have to work at a sustained amount of activity for some time before he would likely get back to where he was. That being said, we will check a chest CT to ensure that there is not evidence of ongoing d isease that is being missed on his chest x-ray. He has had baseline basilar bronchiectasis ( I suspect from having refluxed chronically or having exposure to farming chemicals). 2. 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 3. DM type 2 (diabetes mellitus, type 2) ([facility]) - Off of metformin and with good blood sugar control since stopping prednisone, changing diet and having lost weight. I am okay with sto pping the blood sugar checks and periodically checking a HgBA1C. I tried to explain that I d o not usually manage this, but they feel that since I started the medication (actually it wa s started by the hospitalist service while in the hospital), that I should manage this issue . It is not really in my normal area of management. I agreed to check a HgBA1C today and we can follow that. 4. Sleepiness - His feels like he is sleeping excessively, but this amounts to total o f about 7 1/2 hours a day, which for his age is not actually and excessive amount of sleep. He does not report much in the way of sleep difficulty either, and he himself does not seem tired. That being said, I have long suspected sleep apnea, though they do not report symptom s beyond snoring. He snored and had a difficult time waking up in the hospital, and often sn orted and gasped while there. He also tends to have a sawtooth pattern of desaturation on hi s oximetry when asleep. I will have him do a sleepiness questionnaire, and if he scores high ly on this, then refer for a sleep study. Plan 1.Check chest CT scan. 2.Check HgB A1C today, then every 3 months, though I would prefer his primary care provider took over management of his DM. 3.Sleepiness questionnaire today, if score is elevated, I would recommend a sleep study. He was advised to call if new pulmonary symptoms were to develop. Return to clinic TBD based on above results. CC: Jona Deal Portions of this report were transcribed using voice recognition software. Every effort wa s made to ensure accuracy; however, inadvertent computerized corporate statistical financial analyst errors may be pre sent. Electronically signed by: Carmelita Mckeon MD 01/12/2014 10:26 documented in t his encounter Miscellaneous Notes Miscellaneous - ONNAHOMI PARSON [facility] - 01/12/2014 12:00 AM PDT documented in this encounter Plan of Treatment [...] | | | | | [place], [place] [address] | | | | | | [phone] | | | | | | | | +--------+---------+ + + + documented as of this encounter Results Hemoglobin A1C (01/12/2014 12:03 PM PDT) + +-------+ + + + | Component | Value | Ref Range | Performed | Pathologist | | | | | At | Signature | + +-------+ + + + | Hemoglobin | 5.7 | 4.3 - 5.8 % | [facility] | | | A1c | | | [facility] | | | | | | MEDICAL | | | | | | CENTER - | | | | | | LABORATORY | | + +-------+ + + + | Estimated | 117 | mg/dL | [facility] | | | Average | | | [facility] | | | Glucose | | | [...] + | [facility] | [address] | [place], [place] | [phone] | | [facility] | | [address] | | | - LABORATORY | | | | + + + + + | [facility] | [address] | [place], [place] | | | [facility] | | [address], [facility] | | | - LABORATORY | | | | + + + + + CT Chest wo Contrast (01/12/2014 11:50 AM [...] CT chest dated May 17, 2012 from [facility] | | | [facility]. 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
--- OUTSIDE RECORDS SUMMARY | ~2019-12-20 | XMS | Encounter Summary ---
Demographics + + + | Address | [address] | | | [place] [address] | + + + | Home Phone | | + + + | Preferred Language | Unknown | + + + | Marital Status | | + + + | Hindu Affiliation | 1013 | + + + | Race | Unknown | + + + | Ethnic Group | Unknown | + + + Author + + + | Author | [facility] | | | and [place] | + + + | Organization | [facility] | | | [...] | | | | | [place] [address] | | + + + + + | Melissa [place]on | ECON | [address] | | | | | [place] [address] | | + + + + + Care Team Providers + +------+ + | Care Boots And Shoes Supervisor Name | Role | Phone | + +------+ + | Jona Deal MD | PCP | | + +------+ + Encounter Details +--------+ + + + + | Date | Type | Department | Care Team | Description | +--------+ + + + + | 06/01/ | Hospital | [facility] | Offenstein, | BOOP (bronchiolitis | | 2011 - | Encounter | MED CTR GENERIC OP | Carmelita Penny MD | obliterans with | | | | CONV DEPT [address] | | organizing | | 06/03/ | | [place], | | pneumonia) (HCC) | | 2011 | | [place] [address] | | | | | | [phone] | | | +--------+ + + + [...] | | | | | pneumonia) ([facility]) | | | | | | + [...] | | | | | pneumonia) ([facility]) | | | | | | + [...] [place] | | | | | | [address] | | | | | | | | +--------+---------+ + + + | 01/12/ | Office | Neurology | Erica Nova | | | 2019 | Visit | | MD Sebastian [address] | | | | | | [place] | | | | | | [place] [address] | | | | | | [phone] | | | | | | | [...] | + + + | [facility] Diagnostic Imaging | [place] HOLLOW | | Department [address] [facility] [place] | [facility] | | [ rep ct [address]] [ rep ct [facility] | | [facility]] Signed | - IMAGING | | | | | Patient Name: RON SHELDON V Physician: | | | DOROTEO. : 1935 Age: 77 Sex: M Unit #: [id number] | | | Exam Date: 06/01/12 Location: [facility] | | | Report #: [id number] Page: | | | %(RAD)RES..mtdd.print.filter("pg") of %(RAD) | | | RES..mtdd.print.filter("tpg") | | | | | | Accession Number: [id number] | | | CHEST PA AND LATERAL, [...] Transcribed Date/Time: 06/01/2012 15:42 | | | Polisher Eyeglass Frames: <<Signature on File>> | | | | | | Rakesh Geurrero MD06/01/122004 <Electronically signed by Rakesh Whitmore | | | Yolanda TERAN> Rakesh Guerrero MD 06/01/12 1414 | | | Polisher Eyeglass Frames: PAIEON [id number]/11/12 1542 | | | Carmelita Mckeon MD | | + + + + + + + + | Performing | Address | City/State/Zipcode | Phone Number | | Organization | | | | + + + + + | [facility] | [address] 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
--- OUTSIDE RECORDS SUMMARY | ~2019-12-20 | XMS | Encounter Summary ---
Demographics + + + | Address | [address] | | | [place] [address] | + + + | Home Phone [...] | | | | | [place] [address] | | + + + + + | Melissa Daley | ECON | [address] | | | | | [place] [address] | | + + + + + Care Team Providers + +------+ + | Care Special Weapons Unit Officer Name | Role | Phone | [...] + | 01/13/ | Telephone | [facility] | [place], | Other (sleep study) | | 2013 | | PULMONARY [address] | Carmelita Penny MD | | | | | [place], | | | | | | [place] [address] | | | | | | [phone] | | | +--------+ + + + [...] [place] | | | | | | [address] | | | | | | | | +--------+---------+ + + + | 01/12/ | Office | Neurology | Erica Nova | | 2019 | Visit | | MD Sebastian [address] | | | | | | [place] | | | | | | [place], [place] [address] | | | | | | [phone] | | | | | | | | +--------+---------+ + + + documented as of this encounter Visit Diagnoses Not on filedocumented in this encounter"
--- OUTSIDE RECORDS SUMMARY | ~2019-12-20 | XMS | Encounter Summary ---
Demographics + + + | Address | [address] | | | [place] [address] | + + + | Home Phone [...] | | | | | [place] [address] | | + + + + + | Melissa Sheldon | ECON | [address] | | | | | [place] [address] | | + + + + + Care Team Providers + +------+ + | Care Microcomputer Technician Name | Role | Phone | + +------+ + | Jona Deal MD | PCP | | + +------+ + Encounter Details +--------+ + + + + | Date | Type | Department | Care Team | Description | +--------+ + + + + | 07/26/ | Hospital | [facility] | Offenstein, | BOOP (bronchiolitis | | 2014 | Encounter | MED CTR XRAY [address] | Carmelita Penny MD | obliterans with | | | | [place] | | organizing | | | | [place] [address] | | pneumonia) (HCC) | | | | [phone] | | | +--------+ + + + [...] A[place]ina | | | | | | [place] | | | | | | [address] | | | | | | | | +--------+---------+ + + + | 01/12/ | Office | Neurology | Erica Nova | | 2019 | Visit | | MD Sebastian [address] | | | | | | [place] | | | | | | [place] [address] | | | | | | [phone] | | | | | | | [...] [facility] | [place] [facility] | | Department [address] [place] [address] | [facility] | | [ rep ct street[address]] [ rep [facility] | | st zip] Signed | - IMAGING | | | | | Patient Name: RON SHELDON V Physician: | | | OFFE. : 1935 Age: 78 Sex: M Unit #: [id number] | | | Exam Date: 07/26/13 Location: [facility] | | | Report #: [id number] Page: | | | %(RAD)RES..mtdd.print.filter("pg") of %(RAD) | | | RES..mtdd.print.filter("tpg") | | | | | | Accession Number: [id number] | | | CHEST, PA AND LATERAL, [...] Transcribed Date/Time: 07/26/2013 16:02 | | | Granite Countertop Installer: <<Signature on File>> | | | | | | Kiko Hair MD07/26/13 1931 <Electronically signed by Kiko | | | Melina Hair MD> Kiko Hair MD 07/26/13 1432 | | | Granite Countertop Installer: Cayetano Belpoepuiugaz84/04/14 1602 | | | Carmelita Mckeon MD | | + + + + + + + + | Performing | Address | City/State/Zipcode | Phone Number | | Organization | | | | + + + + + | [facility] | [address] 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
--- OUTSIDE RECORDS SUMMARY | ~2019-12-20 | XMS | Encounter Summary ---
Demographics + + + | Address | [address] | | | [place] [address] | + + + | Home Phone [...] | | | | | [place] [address] | | + + + + + | Melissa Daley | ECON | [address] | | | | | [place] [address] | | + + + + + Care Team Providers + +------+ + | Care Nuclear Waste Process Operator Name | Role | Phone | + +------+ + PCP | Unavailable | + +------+ + Encounter Details +--------+ + + + + | Date | Type | Department | Care Team | Description | +--------+ + + + + | 05/31/ | Hospital | [facility] | | | | 2000 - | Encounter | MED CTR GENERIC IP | | | | | | CONV DEPT [address] | | | | 06/02/ | | [place], | | | | 2000 | | [place] [address] | | | | | | [phone] | | | +--------+ + + + [...] [place] | | | | | | [address] | | | | | | | | +--------+---------+ + + + | 01/12/ | Office | Neurology | Erica Nova | | | 2019 | Visit | | MD Sebastian [address] | | | | | | [place] | | | | | | [place] [address] | | | | | | [phone] | | | | | | | | +--------+---------+ + + + documented as of this encounter Visit Diagnoses Not on filedocumented in this encounter"
--- OUTSIDE RECORDS SUMMARY | ~2019-12-20 | XMS | Encounter Summary ---
Demographics + + + | Address | [address] | | | [place] [address] | + + + | Home Phone [...] | | | | | [place] [address] | | + + + + + | Melissa Daley | ECON | [address] | | | | | [place] [address] | | + + + + + Care Team Providers + +------+ + | Care High Pressure Kettle Operator Name | Role | Phone | + +------+ + | Jona Deal MD | PCP | | + +------+ + Encounter Details +--------+ + + + + | Date | Type | Department | Care Team | Description | +--------+ + + + + | 01/12/ | Hospital | [facility] | Offenstein, | DM type 2 (diabetes | | 2014 | Encounter | MED CTR LABORATORY | Carmelita Penny MD | mellitus, type 2) | | | | [address] | | ([facility]) | | | | [place] | | | | | | [address] | | | | | | [phone] | | | +--------+ + + + [...] [place] | | | | | | [address] | | | | | | | | +--------+---------+ + + + | 01/12/ | Office | Neurology | Erica Nova | | | 2019 | Visit | | MD Sebastian [address] | | | | | | [place] | | | | | | [place] [address] | | | | | | [phone] | | | | | | | [...] | | PDT | type 2) ([facility]) | results section. | + +--------+ [...] [address] | [place] | [phone] | | [facility] | | [address] | | | - LABORATORY | | | | + + + + + | [facility] | [address] | [place], [place] | | | [facility] | | [address], [facility] | | | - [...]
--- OUTSIDE RECORDS SUMMARY | ~2019-12-20 | XMS | Encounter Summary ---
Demographics + + + | Address | [address] | | | [place] [address] | + + + | Home Phone [...] | | | | | [place] [address] | | + + + + + | Melissa Daley | ECON | [address] | | | | | [place] [address] | | + + + + + Care Team Providers + +------+ + | Care Advertising Assistant Manager Name | Role | Phone | [...] | RN | | | | | [place], | | | | | | [place] [address] | | | | | | [phone] | | | +--------+ + + + [...] [place] | | | | | | [address] | | | | | | | | +--------+---------+ + + + | 01/12/ | Office | Neurology | Erica Nova | | | 2020 | Visit | | MD Sebastian [address] | | | | | | [place] | | | | | | [place] [address] | | | | | | [phone] | | | | | | | | +--------+---------+ + + + documented as of this encounter Visit Diagnoses Not on filedocumented in this encounter"
--- OUTSIDE RECORDS SUMMARY | ~2019-12-20 | XMS | Encounter Summary ---
Demographics + + + | Address | [address] | | | [place] [address] | + + + | Home Phone [...] | | | | | [place] [address] | | + + + + + | Melissa Daley | ECON | [address] | | | | | [place] [address] | | + + + + + Care Team Providers + +------+ + | Care Social Human Services Assistants Name | Role | Phone | + [...] | alveolar and | | | | [place], | | parietoalveolar | | | | [place] [address] | | pneumonopathies | | | | [phone] | | ([facility]); | | | | | | Bronchiectasis | | | | | | without acute | | | | | | exacerbation ([facility]); | | | | | [...] [place] | | | | | | [address] | | | | | | | | +--------+---------+ + + + | 01/12/ | Office | Neurology | Erica Nova | | | 2019 | Visit | | MD Sebastian [address] | | | | | | [place] | | | | | | [place] [address] | | | | | | [phone] | | | | | | | [...]
--- OUTSIDE RECORDS SUMMARY | ~2019-12-20 | XMS | Encounter Summary ---
Demographics + + + | Address | [address] | | | [place] [address] | + + + | Home Phone [...] + + | Author | [facility] | | | and [place] | + + + | Organization | [facility] | | | and [...] | | | | | [place] [address] | | + + + + + | Melissa Sheldon | ECON | [address] | | | | | [place] [address] | | + + + + + Care Team Providers + +------+ + | Care Communication Analyst Name | Role | Phone | [...] + + | 07/21/ | Office | [facility] | Carlieenstein, | BOOP (bronchiolitis | | 2012 | Visit | PULMONARY [address] | Carmelita Penny MD | obliterans with | | | | [place], | | organizing | | | | [place] [address] | | pneumonia) ([facility]) | | | | [phone] | | (Primary Dx); | | | | | | Nocturnal hypoxemia; | | | | | | 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[facility]); Need | | | | | [...] [place] | | | | | | [place] | | | | | | [id number] | | | | | | | | +--------+---------+ + + + | 01/12/ | Office | Neurology | Erica Nova | | | 2019 | Visit | | MD Sebastian [address] | | | | | | [place] | | | | | | [place] [address] | | | | | | [phone] | | | | | | | | +--------+---------+ + + + documented as of this encounter Results XR Chest PA and Lateral (08/16/2012 11:14 AM PST) + + | Specimen | + + | | + + + + + | Narrative | Performed At | + + + | [facility] | [place] | | Department [address] [place] [address] | [facility] | | [ rep ct street1+2] [ rep [facility] | | st zip] Signed | - IMAGING | | | | | Patient Name: RON SHELDON V Physician: | | | DOROTEO. : 1935 Age: 77 Sex: M Unit #: [id number] | | | Exam Date: 08/16/12 Location: [facility] | | | Report #: [id number] Page: | | | %(RAD)RES..mtdd.print.filter("pg") of %(RAD) | | | RES..mtdd.print.filter("tpg") | | | | | | Accession Number: [id number] | | | CHEST X-RAY CLINICAL HISTORY: [...] Transcribed Date/Time: | | | 08/16/2012 11:23 Hoop Cutter: | | | <<Signature on File>> | | | Mart | | | MD [place]08/16/12 1439 <Electronically signed by Mart Boyle MD> | | | Mart Boyle MD 08/16/12 1114 Hoop Cutter: Cayetano | | | [id number]/25/13 1123 Carmelita Mckeon MD | | | | | + + + + + + + + | Performing | Address | City/State/Zipcode | Phone Number | | Organization | | | | + + + + + | [facility] | [address] | [place] | [phone] | | [facility] | | [address] | | | - IMAGING | | [...]
--- OUTSIDE RECORDS SUMMARY | ~2019-12-20 | XMS | Encounter Summary ---
Demographics + + + | Address | [address] | | | [place] [address] | + + + | Home Phone [...] | | | | | [place] [address] | | + + + + + | Melissa Daley | ECON | [address] | | | | | [place] [address] | | + + + + + Care Team Providers + +------+ + | Care Broker Agricultural Produce Name | Role | Phone | + [...] performed | | | | [address] | [place], [place] | | | | | [place], [place] | [address] | | | | | [address] | | | | | | [phone] | | | +--------+---------+ + + + [...] voiding. Follow up: Call Dr Garrido's office ([phone]) to set up your follow-up appointment or [...] Date of Admission: 12/15/2019 Requesting/Referring Physician: [facility] emergency department Chief Complaint: 11 [...] visit to the emergency department at [facility]. While at [facility], CT imaging was performed which [...] (bronchiolitis obliterans with organizing pneumonia) ([facility]) Carpal tunnel syndrome Cataract Colon polyps [...] file Gets together: Not on file Attends mormon service: Not on file Active member of [...] Electronically signed by: Kiko Garrido MD 12/15/2019 [facility] documented in this en counter Miscellaneous Notes Plan of Care - Carmelita Mesa, HEAVY EQUIPMENT SALES MANAGER - 12/16/2019 5:33 PM PDT Problem: Discharge Planning Goal: Patient's discharge needs will be identified in a timely manner Outcome: Met Goal: Patient will be discharged in a safe manner Outcome: Met This case management director met with Ron to discuss his discharge plan. Ron states that he lives with his spouse Melissa in [place] at the [facility]. He states that he can [...] home today. PCP is Nilo, he uses [facility] in [place]. PLAN: Home with spouse, daughter Katie to transport. lan of Jeanna Berger RN - 12/16/2019 2:13 PM PDTPt adequate for discharge. PIV removed. Educated pt and pt daughter on discharge instruct ions with emphasis on calling for outpatient appointment and s/s to seek medical attention. Transferred to daughter's car via wheelchair. Daughter to drive pt back to living facility i n [place]. All questions answered. 20 3:38 PM PDTPlan of Destiny Ocampo Chaplain - 12/16/2019 10:12 AM PDT Yan Mccollum Ron Daley is a 84 y.o. male who is admitted for ureteral stone left ureteral calculus LEFT URETERAL CALCULUS. Rivet Tosser visit was part of routine rounding. Spiritual [...] 63 years. 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 His daughter works here and came to his bedside during our vis it. He is accepting of the need for surgery and has experienced this issue several times, s ome times needing hospitalization, other times not. Spiritual Interventions: The cashier assistant attended, offered care, explored patient's life [...] Daley 84 y.o. 1935 Med. Record Number: [id number] Date of Operation/Procedure: 12/15/2019 Preoperative Diagnosis: 11 mm mid left ureteral calculus Left hydronephrosis Left renal colic Acute Kidney Injury Postoperative Diagnosis: 11 mm mid left ureteral calculus Left hydronephrosis Left renal colic Acute Kidney Injury Surgeon: Kiko Garrido MD Business Analysis Professional(s): None Anesthesia Provider(s): Anesthesiologist: Pietro Tang MD [...] guidance up into the renal pelvis. A 7-Syriac X 26 cm double-J stent was placed [...] Kiko Garrido MD, 12/15/2019 7:02 PM PDT [facility] documented in this en counter Plan [...] [place] | | | | | | [address] | | | | | | | | +--------+---------+ + + + | 01/12/ | Office | Neurology | Erica Nova | | 2019 | Visit | | MD Sebastian [address] | | | | | | [place] | | | | | | [place] [address] | | | | | | [phone] | | | | | | | [...] +--------+ + + + | FL DANNY STATSanam NO | Routin | 12/15/2019 | | [...] + | [facility] | [address] | [place] | [phone] | | [facility] | | [address] | | | - LABORATORY | | | | + + + + + CBC no Differential (12/16/2019 5:22 AM PDT) + + + + + + | Component | Value | Ref Range | Performed | Pathologist | | | | | At | Signature | + + + + + + | WBC | 7.0 | 4.0 - 11.0 K/uL | [facility] | | | | | [...] + | [facility] | [address] | [place] | [phone] | | [facility] | | [address] | | | - LABORATORY | | [...] | 1.19 | 0.70 - 1.30 | [facility] | | | | | mg/dL | [facility] | | | | | | MEDICAL | | | | | | CENTER - | | | | | | LABORATORY | | + + + + + + | eGFR if not | 58 (L)Comment: | >=60 | [place] | | | | GLOMERULAR FILTRATION | mL/min/1.73m2 | [facility] | | | KAZAKH | RATE,ESTIMATED | | MEDICAL | | | | mL/min/1.10o8Auli than | | CENTER - | | [...] | 8.7 | 8.7 - 10.4 | [facility] | | | | | mg/dL | [facility] | | | | | [...] [address] | [place] | [phone] | | [facility] | | [address] | | | - LABORATORY | | | | + + + + + [place] Ivone-Kendrick Statsanam No Charge (12/15/2019 6:58 PM PDT) [...] | | | | | | [facility] | | [...] + | [facility] | [address] | [place] | [phone] | | [facility] | | [address] | | | - LABORATORY | | [...] | | | | mmol/L | [facility] | | | | | | MEDICAL | | | | | | CENTER - | | | | | | LABORATORY | | + + + + + + | K | 3.6 | 3.4 - 5.1 | [facility] | | | | | mmol/L | [facility] | | | | [...] mL/min/1.73m2 | [facility] | | | [place] | RATE,ESTIMATED | | MEDICAL | | | | mL/min/1.38j9Valo than | | CENTER - | | [...] ST. | [address] | [place] | [phone] | | [facility] | | [address] | | | - LABORATORY | | [...] | | | | LILLIAN PEARSON MD ([id number]) | | | | | | on [...] [address] | [place] | [phone] | | [facility] | | [address] | | | - LABORATORY | | [...] than 38.3 | | | C, Starting [facility] 12/15/19 at 2003, | | | May [...] | | | Starting Laura 12/15/19 at 2004, | | | First [...]
--- OUTSIDE RECORDS SUMMARY | ~2019-12-20 | XMS | Encounter Summary ---
Demographics + + + | Address | [address] | | | [place] [address] | + + + | Home Phone [...] | | | | | [place] [address] | | + + + + + | Melissa Sheldon | ECON | [address] | | | | | [place] [address] | | + + + + + Care Team Providers + +------+ + | Care Relationship Counselor Name | Role | Phone | + +------+ + | Jona Deal MD | PCP | | + +------+ + Encounter Details +--------+ + + + + | Date | Type | Department | Care Team | Description | +--------+ + + + + | 07/21/ | Hospital | [facility] | Offenstein, | BOOP (bronchiolitis | | 2012 - | Encounter | MED CTR XRAY [address] | Carmelita Penny MD | obliterans with | | | | [place] | | organizing | | 07/23/ | | [place] [address] | | pneumonia) (HCC) | | 2012 | | [phone] | | | +--------+ + + + [...] [facility]) | | | | | [...] [facility]) | | | | | [...] [place] | | | | | | [address] | | | | | | | | +--------+---------+ + + + | 01/12/ | Office | Neurology | Erica Nova | | | 2019 | Visit | | MD Sebastian [address] | | | | | | [place] | | | | | | [place] [address] | | | | | | [phone] | | | | | | | [...] ([facility]) | | + +--------+ + + + documented in this encounter Results XR Chest PA and Lateral (07/21/2012 11:21 AM PST) + + | Specimen | + + | | + + + + + | Narrative | Performed At | + + + | [facility] | [place] | | Department [address] [facility] | | [ rep ct street1+2] [ rep [facility] | | st zip] Signed | - IMAGING | | | | | Patient Name: RON SHELDON V Physician: | | | E. : 1935 Age: 77 Sex: M Unit #: [id number] | | | Exam Date: 07/21/12 Location: [facility] | | | Report #: [id number] Page: | | | %(RAD)RES..mtdd.print.filter("pg") of %(RAD) | | | RES..mtdd.print.filter("tpg") | | | | | | Accession Number: [id number] | | | PA AND LATERAL TWO [...] Transcribed Date/Time: | | | 07/21/2012 11:27 Assembler Finger Buffs: | | | <<Signature on File>> | | | Kiko | | | Melina Hair MD07/21/12 192 <Electronically signed by Kiko Summers | | | Laxmi TERAN> Kiko Hair MD 07/21/12 1121 | | | Assembler Finger Buffs: Cayetano [id number]/30/[id number] | | | Carmelita Mckeon MD | | + + + + + + + + | Performing | Address | City/State/Zipcode | Phone Number | | Organization | | | | + + + + + | [facility] | [address] 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
--- OUTSIDE RECORDS SUMMARY | 2019-12-20 10:38 | XMS ---
PreManage Notification: DIONICIO SHELDON Security Mail Room Clerk Events No recent Security Events currently on file CRITERIA MET - COVID-19 Pending Lab Results - [facility] - 2 Visits in 30 Days CARE PROVIDERS There are no care providers on record at this time. Maurice has no Care Guidelines for this patient. E.DTyler VISIT COUNT (12 MO.) 2 [facility] [place] H. TOTAL 2 NOTE: Visits indicate total known visits. ED/UCC VISIT TRACKING (12 MO.) 12/20/2019 10:37 [place] [place] TYPE: Emergency COMPLAINT: - ABD PAIN 12/15/2019 10:[address] [facility] [address] [place] TYPE: Emergency COMPLAINT: - FLANK PAIN DIAGNOSES: - Radiographic dye allergy status - Other usp (current) drug therapy - Hydronephrosis with renal and ureteral calculous obstruction - half-way (current) use of aspirin - Essential (primary) hypertension - Unspecified abdominal pain INPATIENT VISIT TRACKING (12 MO.) 12/15/2019 16:28 [place] [facility] DIAGNOSES: - left ureteral calculus - ureteral stone [email or web address]
== END 2019-12-20 15:57 | disposition home or self-care (01) ==
LOC: ED 10:36
DX: K59.00 Constipation, unspecified (principal); R33.9 Retention of urine, unspecified; I10 Essential (primary) hypertension; Z91.041 Radiographic dye allergy status; Z79.899 Other long term (current) drug therapy
CPT/HCPCS: 51701; 74177; 80053; 81001; 83690; 85025; 99285-25; J2405; J7121; Q9967

== ENCOUNTER 2020-01-23 10:43 | Inpatient (IN) | payer MEDICARE, OTHER ==
[~2020-01-23] VITALS: Ht 180.3 cm; Wt 106.6 kg
--- OUTSIDE RECORDS SUMMARY | ~2020-01-23 | XMS | Encounter Summary ---
Demographics + + + | Address | [address] | | | [place] [address] | + + + | Home Phone | | + + + | Preferred Language | Unknown | + + + | Marital Status | | + + + | Moravian Affiliation | 1013 | + + + | Race | Unknown | + + + | Ethnic Group | Unknown | + + + Author + + + | Author | [facility] | | | and [place] | + + + | Organization | [facility] | | | [...] | | | | | [place] [address] | | + + + + + | Melissa Daley | ECON | [address] | | | | | [place] [address] | | + + + + + Care Team Providers + +------+ + | Care Vp Research Name | Role | Phone | + +------+ + | Bunny Corcoran | PCP | | | MD | | | + +------+ + Encounter Details +--------+ + + + + | Date | Type | Department | Care Team | Description | +--------+ + + + + | 12/22/ | Imaging | [facility] | Provider, | | | 2019 | Exam | MED CTR EXTERNAL | MD Joy [address] | | | | | IMAGING [address] | [address] | | | | | [address] | [place] [address] | | | | | [place] [address] | | | | | | [phone] | | | +--------+ + + + [...] Description | +--------+---------+ + + + | 01/21/ | Office | Urology | Kiko Garrido, | | | 2020 | Visit | | MD Jorge A HENRIQUEZ | | | | | | [place] | | | | | | [address] | | | | | | | | +--------+---------+ + + + documented as of this encounter Procedures + +--------+ + + + | Procedure Name | Priori | Date/Time | Associated Diagnosis | Comments | | | ty | | | | + +--------+ + + + | CT ABDOMEN PELVIS W | Routin | 12/20/2019 | | Results for this | | CONTRAST | e | 12:00 AM | | procedure are in the | | | | PDT | | results section. | + +--------+ + + + documented in this encounter Results CT Abdomen Pelvis w Contrast (12/20/2019 12:00 AM PDT) + + | Specimen | + + | | + + + + + | Narrative | Performed At | + + + | External films for comparison only | [facility] | | | | | No results will be in the chart. | | + + + + +---------+ + + | Performing | Address | City/State/Zipcode | Phone Number | | Organization | | | | + +---------+ + + | [facility] | | | | + +---------+ + + documented in this encounter Visit Diagnoses Not on filedocumented in this encounter"
--- OUTSIDE RECORDS SUMMARY | ~2020-01-23 | XMS | Encounter Summary ---
Demographics + + + | Address | [address] | | | [place] [address] | + + + | Home Phone | | + + + | Preferred Language | Unknown | + + + | Marital Status | | + + + | Jain Affiliation | 1013 | + + + | Race | Unknown | + + + | Ethnic Group | Unknown | + + + Author + + + | Author | [facility] | | | and [place] | + + + | Organization | [facility] | | | [...] | | | | | [place] [address] | | + + + + + | Melissa Sheldon | ECON | [address] | | | | | [place] [address] | | + + + + + Care Team Providers + +------+ + | Care Flap Curer Name | Role | Phone | + +------+ + | Jona Deal MD | PCP | | + +------+ + Encounter Details +--------+ + + + + | Date | Type | Department | Care Team | Description | +--------+ + + + + | 06/23/ | Hospital | [facility] | Off[place], | BOOP (bronchiolitis | | 2012 - | Encounter | MED CTR XRAY [address] | Carmelita Penny MD | obliterans with | | | | [place] | | organizing | | 06/25/ | | [place] [address] | | pneumonia) (HCC) | | 2012 | | [phone] | | | +--------+ + + + [...] + + documented as of this encounter Medications at Time of Discharge + + + +---------+ + + | Medication | Sig | Dispensed | Refills | Start | End Date | | | | | | Date | | + + + +---------+ + + | allopurinol | Take 100 mg by mouth | | 0 | | | | (ZYLOPRIM) 100 mg | Daily. | | | | | | tablet | | | | | | + + + +---------+ + + | amLODIPine | Take 2.5 mg by mouth | | 0 | | | | (NORVASC) 5 mg | Daily. | | | | | | tablet | | | | | | + + + +---------+ + + | acetaminophen | Take 650 mg by mouth | | 0 | | | | (TYLENOL) 650 MG CR | every 8 hours as | | | | 7 | | tablet | needed. | | | | | + + + +---------+ + + | | Take 3 mLs by | | 0 | | | | albuterol-ipratropiu | nebulization. | | | | 3 | | m (DUONEB) 2.5-0.5 | | | | | | | mg/3 mL SOLN | | | | | | + + + +---------+ + + | atenolol | Take 50 mg by mouth | | 0 | | | | (TENORMIN) 100 MG | 2 times daily. | | | | 7 | | tablet | | | | | | + + + +---------+ + + | atorvaSTATin | Take 20 mg by mouth | | 0 | | | | (LIPITOR) 20 mg | Daily. | | | | 7 | | tablet | | | | | | + + + +---------+ + + | BD PEN NEEDLE DONELL | | | 0 | 05/24/20 | | | U/F 32G X 4 MM MISC | | | | 12 | 3 | + + + +---------+ + + | doxazosin | Take 4 mg by mouth 2 | | 0 | | | | (CARDURA) 4 mg | times daily. | | | | 7 | | tablet | | | | | | + + + +---------+ + + | fluticasone | 2 sprays by Nasal | 16 g | 12 | 05/24/20 | | | (FLONASE) 50 | route Daily. @ | | | 12 | 4 | | mcg/nasal spray | sprays in each | | | | | | | nostril daily | | | | | + + + +---------+ + + | glucose blood | Use to test blood | 100 | 3 | 06/23/19 | | | test strips (ONE | sugar 4 times daily. | each | | 13 | 3 | | TOUCH ULTRA TEST) | | | | | | | strip | | | | | | + + + +---------+ + + | insulin aspart | Sliding Scale as | 15 mL | 2 | 06/23/19 | | | (NOVOLOG FLEXPEN) | previously written. | | | 13 | 3 | | 100 units/mL | | | | | | | injection | | | | | | + + + +---------+ + + | lisinopril | Take 10 mg by mouth | | 0 | | | | (PRINIVIL, ZESTRIL) | Daily. | | | | 7 | | 10 mg tablet | | | | | | + + + +---------+ + + | metFORMIN | Take 1 tablet by | 30 | 0 | 06/01/20 | | | (GLUCOPHAGE) 500 mg | mouth daily (with | tablet | | 12 | 3 | | tabletIndications: | breakfast). | | | | | | BOOP (bronchiolitis | | | | | | | obliterans with | | | | | | | organizing | | | | | | | pneumonia) ([facility]) | | | | | | + + + +---------+ + + | omeprazole | Take 20 mg by mouth | | 0 | | | | (PRILOSEC) 20 mg | 2 times daily. | | | | 3 | | capsule | | | | | | + + + +---------+ + + | predniSONE | Take 5 mg by mouth | | 0 | 06/23/19 | | | (DELTASONE) 10 mg | Daily. Continue 20mg | | | 13 | 3 | | tablet | a day until 06/27 | | | | | | | then drop to 10mg a | | | | | | | day. | | | | | + + + +---------+ + + | predniSONE | Continue 20mg a day | 50 | 1 | 06/23/19 | | | (DELTASONE) 10 mg | until 06/27 then drop | tablet | | 13 | 3 | | tabletIndications: | to 10mg a day. | | | | | | BOOP (bronchiolitis | | | | | | | obliterans with | | | | | | | organizing | | | | | | | pneumonia) ([facility]) | | | | | | + + + +---------+ + + | testosterone | Inject 200 mg of | | 0 | | | | (ANDROGEL) 50 mg/5 g | testosterone into | | | | 7 | | (1%) gel | the muscle Daily. | | | | | | | Every three weeks. | | | | | + + + +---------+ + + documented as of this encounter [...] [place] | | | | | | [address] | | | | | | | | +--------+---------+ + + + documented as of this encounter Procedures + +--------+ + + + | Procedure Name | Priori | Date/Time | Associated Diagnosis | Comments | | | ty | | | | + +--------+ + + + | XR CHEST PA AND | Routin | 06/23/2012 | BOOP | Results for this | | LATERAL | e | 1:39 PM | (bronchiolitis | procedure are in the | | | | PST | obliterans with | results section. | | | | | organizing | | | | | | pneumonia) (HCC) | | + +--------+ + + + documented in this encounter Results XR Chest PA and Lateral (06/23/2012 1:39 PM PST) + + | Specimen | + + | | + + + + + | Narrative | Performed At | + + + | [facility] Diagnostic Imaging | [place] | | Department [address] [facility], [place] | [facility] | | [ rep [address]] [ rep [facility] | | [facility]] Signed | - IMAGING | | | | | Patient Name: RON SHELDON V Physician: | | | DOROTEO. : 1935 Age: 77 Sex: M Unit #: [id number] | | | Exam Date: 06/23/12 Location: [facility] | | | Report #: [id number] Page: | | | %(RAD)RES..mtdd.print.filter("pg") of %(RAD) | | | RES..mtdd.print.filter("tpg") | | | | | | Accession Number: [id number] | | | TWO-VIEW CHEST CLINICAL HISTORY: FOLLOW UP BOOP. | | | COMPARISON: 06/01/2012 FINDINGS: Heart size | | | is stable and normal. The aorta and pulmonary vasculature appear | | | normal. There continues to be widespread increased lung | | | density with coarse linear components as well as some patchy areas | | | of airspace density. In particular, density is seen along the | | | horizontal fissure on the right and in the perihilar regions. This | | | is less extensive and widely distributed than on prior study. No new | | | or focal areas of abnormal lung density are present. No effusions are | | | suggested. Flattening of the hemidiaphragms suggests accompanying | | | emphysematous change. IMPRESSION: 1. 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 Dictated Date/Time: | | | 06/23/2012 13:39 Transcribed Date/Time: 06/23/2012 13:44 | | | Repack Room Worker: <<Signature on File>> | | | | | | Tan Keenan MD06/23/12 2524 <Electronically signed by | | | Tan Keenan MD> Tan Keenan MD 06/23/12 | | | 1339 Repack Room Worker: Brandle [id number]/02/13 1344 | | | Carmelita Mckeon MD | | + + + + + + + + | Performing | Address | City/State/Zipcode | Phone Number | | Organization | | | | + + + + + | [facility] | [address] | [place] | [phone] | | 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
--- OUTSIDE RECORDS SUMMARY | ~2020-01-23 | XMS | Encounter Summary ---
Demographics + + + | Address | [address] | | | [place] [address] | + + + | Home Phone | | + + + | Preferred Language | Unknown | + + + | Marital Status | | + + + | Protestant Affiliation | 1013 | + + + | Race | Unknown | + + + | Ethnic Group | Unknown | + + + Author + + + | Author | [facility] | | | and [place] | + + + | Organization | [facility] | | | [...] | | | | | [place] [address] | | + + + + + | Melissa Sheldon | ECON | [address] | | | | | [place] [address] | | + + + + + Care Team Providers + +------+ + | Care Belt Builder Helper Name | Role | Phone | + +------+ + | Jona Deal MD | PCP | | + +------+ + Encounter Details +--------+ + + + + | Date | Type | Department | Care Team | Description | +--------+ + + + + | 04/01/ | Hospital | [facility] | [place], | BOOP (bronchiolitis | | 2013 | Encounter | MED CTR XRAY [address] | Carmelita ePnny MD | obliterans with | | | | [place] | | organizing | | | | [place] [address] | | pneumonia) (HCC) | | | | [phone] | | | +--------+ + + + [...] + + + +---------+ + + | ONE TOUCH ULTRA | USE TO TEST 4 TIMES | 100 | 3 | 12/22/19 | | | TEST strip | DAILY | each | | 13 | 4 | + + + +---------+ + + [...] [place] | | | | | | [address] | | | | | | | | +--------+---------+ + + + documented as of this encounter Procedures + +--------+ + + + | Procedure Name | Priori | Date/Time | Associated Diagnosis | Comments | | | ty | | | | + +--------+ + + + | XR CHEST PA AND | Routin | 04/01/2013 | BOOP | Results for this | | LATERAL | e | 1:07 PM | (bronchiolitis | procedure are in the | | | | PDT | obliterans with | results section. | [...] Performed At | + + + | Diagnostic Imaging | [place] | | Department [address] [facility] | [facility] | | [ rep ct [address]] [ rep [facility] | | st zip] Signed | - IMAGING | | | | | Patient Name: RON SHELDON V Physician: | | | DOROTEO. : 1935 Age: 78 Sex: M Unit #: [id number] | | | Exam Date: 04/01/13 [place] [facility] | | | Report #: [id number] Page: | | | %(RAD)RES..mtdd.print.filter("pg") of %(RAD) | | | RES..mtdd.print.filter("tpg") | | | | | | Accession Number: [id number] | | | CHEST X-RAY CLINICAL HISTORY: [...] | | | Transcribed Date/Time: 04/01/2013 13:30 Professor Of Voice: | | | <<Signature on File>> | | | Mart | | | MD [place]04/01/13 1240 <Electronically signed by Mart Boyle MD> | | | Mart Boyle MD 04/01/13 1307 Professor Of Voice: Barafonx | | | [id number]/11/13 9037 Carmelita Mckeon MD | | | | | + + + + + + + + | Performing | Address | City/State/Zipcode | Phone Number | | Organization | | | | + + + + + | [facility] | [address] 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
--- OUTSIDE RECORDS SUMMARY | ~2020-01-23 | XMS | Encounter Summary ---
Demographics + + + | Address | [address] | | | [place] [address] | + + + | Home Phone | | + + + | Preferred Language | Unknown | + + + | Marital Status | | + + + | Moravian Affiliation | 1013 | + + + | Race | Unknown | + + + | Ethnic Group | Unknown | + + + Author + + + | Author | [facility] | | | and [place] | + + + | Organization | [facility] | | | [...] | | | | | [place] [address] | | + + + + + | Melissa Daley | ECON | [address] | | | | | [place] [address] | | + + + + + Care Team Providers + +------+ + | Care Site Leader Name | Role | Phone | + +------+ + PCP | Unavailable | + +------+ + Encounter Details +--------+ + + + + | Date | Type | Department | Care Team | Description | +--------+ + + + + | 02/01/ | Hospital | [facility] | | | | 1991 | Encounter | MED CTR XRAY [address] | | | | | | [place] | | | | | | [place] [address] | | | | | | [phone] | | | +--------+ + + + [...] [place] | | | | | | [address] | | | | | | | | +--------+---------+ + + + documented as of this encounter Visit Diagnoses Not on filedocumented in this encounter"
--- OUTSIDE RECORDS SUMMARY | ~2020-01-23 | XMS | Encounter Summary ---
Demographics + + + | Address | [address] | | | [place] [address] | + + + | Home Phone | | + + + | Preferred Language | Unknown | + + + | Marital Status | | + + + | Sikh Affiliation | 1013 | + + + | Race | Unknown | + + + | Ethnic Group | Unknown | + + + Author + + + | Author | [facility] | | | and [place] | + + + | Organization | [facility] | | | [...] | | | | | [place] [address] | | + + + + + | Melissa Daley | ECON | [address] | | | | | [place] [address] | | + + + + + Care Team Providers + +------+ + | Care Double End Tenoner Operator Name | Role | Phone | + +------+ + | Bunny Corcoran | PCP | | | MD | | | + +------+ + Encounter Details +--------+ + + + + | Date | Type | Department | Care Team | Description | +--------+ + + + + | 12/14/ | Imaging | [facility] | Provider, | | | 2019 | Exam | MED CTR EXTERNAL | MD [address] | | | | | IMAGING [address] | Chad SHIELDS | | | | | [address] [place] | [place] [address] | | | | | [place] [address] | | | | | | [phone] | | | +--------+ + + + [...] [place] | | | | | | [address] | | | | | | | [...] in this encounter Results CT Abdomen Pelvis wo Contrast (12/15/2019 [...]
--- OUTSIDE RECORDS SUMMARY | ~2020-01-23 | XMS | Encounter Summary ---
Demographics + + + | Address | [address] | | | [place] [address] | + + + | Home Phone | | + + + | Preferred Language | Unknown | + + + | Marital Status | | + + + | Baptist Affiliation | 1013 | + + + | Race | Unknown | + + + | Ethnic Group | Unknown | + + + Author + + + | Author | [facility] | | | and [place] | + + + | Organization | [facility] | | | [...] | | | | | [place] [address] | | + + + + + | Melissa Daley | ECON | [address] | | | | | [place] [address] | | + + + + + Care Team Providers + +------+ + | Care Bulb Filler Name | Role | Phone | + +------+ + | Jona Deal MD | PCP | | + +------+ + Encounter Details +--------+ + + + + | Date | Type | Department | Care Team | Description | +--------+ + + + + | 07/26/ | Orders Only | [facility] | Marci Mcneal, | Nocturnal hypoxemia | | 2013 | | PULMONARY [address] | RN | | | | | [place], | | | | | | [place] [address] | | | | | | [phone] | | | +--------+ + + + [...] [place] | | | | | | [address] | | | | | | | | +--------+---------+ + + + documented as of this encounter Visit Diagnoses + + | Diagnosis | + + | Nocturnal hypoxemia Hypoxemia | + + documented in this encounter"
--- OUTSIDE RECORDS SUMMARY | ~2020-01-23 | XMS | Encounter Summary ---
Demographics + + + | Address | [address] | | | [place] [address] | + + + | Home Phone | | + + + | Preferred Language | Unknown | + + + | Marital Status | | + + + | Mu-Ism Affiliation | 1013 | + + + | Race | Unknown | + + + | Ethnic Group | Unknown | + + + Author + + + | Author | [facility] | | | and [place] | + + + | Organization | [facility] | | | [...] | | | | | [place] [address] | | + + + + + | Melissa Daley | ECON | [address] | | | | | [place] [address] | | + + + + + Care Team Providers + +------+ + | Care Remedial Reading Teacher Name | Role | Phone | + +------+ + | Jona Deal MD | PCP | | + +------+ + Reason for Visit +--------+--------+ + | Reason | Onset | Comments | | | Date | | +--------+--------+ + | Other | 04/05/ | right shoulder | | | 2012 | | +--------+--------+ + Encounter Details +--------+ + + + + | Date | Type | Department | Care Team | Description | +--------+ + + + + | 04/05/ | Telephone | [facility] [place] | Marci Mcneal, | Other (right | | 2012 | | PULMONARY [address] | RN | shoulder) | | | | [place], | | | | | | [place] [address] | | | | | | [phone] | | | +--------+ + + + [...] this encounter Miscellaneous Notes Telephone Encounter - Carmelita Mckeon MD - 04/05/2013 3:16 PM PDTPlease send copy o f radiology report to PCP so he is aware of shoulder findings. We will hold off further radi ograph at this time. P M PDTTelephone Encounter - Marci Mcneal, JUANCARLOS - 04/05/2013 3:09 PM PDTCalled Ron at th e request of Dr Mckeon to ask if he had hurt his right shoulder. Ron states that he di d hurt his right shoulder and had it rebuilt around 1974. He no longer has any discomfort or problems. documented in this encounter Plan of Treatment +--------+---------+ + + + | Date | Type | Specialty | Care Team | Description | +--------+---------+ + + + | 01/21/ | Office | Urology | Kiko Garrido, | | | 2020 | Visit | | MD Jorge A HENRIQUEZ | | | | | | [place] | | | | | | [id number] | | | | | | | | +--------+---------+ + + + documented as of this encounter Visit Diagnoses Not on filedocumented in this encounter"
--- OUTSIDE RECORDS SUMMARY | ~2020-01-23 | XMS | Encounter Summary ---
Demographics + + + | Address | [address] | | | [place] [address] | + + + | Home Phone | | + + + | Preferred Language | Unknown | + + + | Marital Status | | + + + | Shinto Affiliation | 1013 | + + + | Race | Unknown | + + + | Ethnic Group | Unknown | + + + Author + + + | Author | [facility] | | | and [place] | + + + | Organization | [facility] | | | and [...] | | | | | [place] [address] | | + + + + + | Melissa Daley | ECON | [address] | | | | | [place] [address] | | + + + + + Care Team Providers + +------+ + | Care Manpower Development Advisor Name | Role | Phone | + +------+ + | Jona Deal MD | PCP | | + +------+ + Encounter Details +--------+ + + + + | Date | Type | Department | Care Team | Description | +--------+ + + + + | 05/22/ | Abstract | [facility] | Alex Nam | Peripheral vascular | | 2017 | | SURGERY [address] | MD Malaika, FACS [address] | disease (HCC); | | | | [address] [place], [place] | [address] [place] | Prostatic | | | | [address] | [place] [address] | hyperplasia, benign | | | | [phone] | [phone] | localized, with | | | | | | obstruction; | | | | | | Gastro-esophageal | | | | | | reflux disease with | | | | | | esophagitis; | | | | | | Bilateral | | | | | | nephrolithiasis; | | | | | | Intermittent | | | | | | claudication (HCC); | | | | | | Hyperlipoproteinemia | +--------+ + + + + Social [...] + + documented as of this encounter Lisseth Whitaker CMA - 05/22/2017 10:28 AM PSTABI with Doppler waveforms and Digit waveform s on 05/05/2017 at [facility] program specialist. NOTES: Bilateral waveforms and numeric values suggest that the patient is at low risk for signific ant peripheral vascular disease. documented in this encounter Plan of Treatment +--------+---------+ + + + | Date | Type | Specialty | Care Team | Description | +--------+---------+ + + + | 01/21/ | Office | Urology | Kiko Garrido, | | | 2020 | Visit | | MD Jorge A HENRIQUEZ | | | | | | [place] | | | | | | [phone] | | | | | | | | +--------+---------+ + + + documented as of this encounter Visit Diagnoses + + | Diagnosis | + + | Peripheral vascular disease (HCC) Peripheral vascular disease, unspecified | + + | Prostatic hyperplasia, benign localized, with obstruction Benign localized | | hyperplasia of prostate with urinary obstruction and other lower urinary tract symptoms | | (LUTS) | + + | Gastro-esophageal reflux disease with esophagitis Reflux esophagitis | + + | Bilateral nephrolithiasis | + + | Intermittent claudication (HCC) Peripheral vascular disease, unspecified | + + | Hyperlipoproteinemia Other and unspecified hyperlipidemia | + + documented in this encounter"
--- OUTSIDE RECORDS SUMMARY | ~2020-01-23 | XMS | Encounter Summary ---
Demographics + + + | Address | [address] | | | [place] [address] | + + + | Home Phone | | + + + | Preferred Language | Unknown | + + + | Marital Status | | + + + | Confucianism Affiliation | 1013 | + + + | Race | Unknown | + + + | Ethnic Group | Unknown | + + + Author + + + | Author | [facility] | | | and [place] | + + + | Organization | [facility] | | | and [...] | | | | | [place] [address] | | + + + + + | Melissa Daley | ECON | [address] | | | | | [place] [address] | | + + + + + Care Team Providers + +------+ + | Care Vehicle Inspector Name | Role | Phone | + +------+ + | Bunny Corcoran | PCP | | | MD | | | + +------+ + Encounter Details +--------+ + + + + | Date | Type | Department | Care Team | Description | +--------+ + + + + | 01/10/ | Hospital | [facility] | Kiko Garrido, | Left ureteral | | 2020 | Encounter | [facility] | [address] | calculus | | | | [address] [place] | [place], [place] | | | | | [place], [place] | [address] | | | | | [address] | | | | | | [phone] | | | +--------+ + + + [...] + + + +---------+ + + | albuterol | Ventolin HFA 90 | | 0 | | | | (VENTOLIN HFA) 90 | mcg/actuation | | | | | | mcg/puff inhaler | aerosol inhaler | | | | | | | current | | | | | + + [...] + + + +---------+ + + | aspirin 325 mg | Take 325 mg by mouth | | 0 | | | | tablet | Daily. | | | | | + + + +---------+ + + | atenolol | Take 1 tablet by | | 0 | 06/02/20 | | | (TENORMIN) 50 mg | mouth 2 times daily. | | | 17 | | | tablet | | | | | | + + + +---------+ + + | atorvaSTATin | take 1 tablet by | | 0 | 12/28/19 | | | (LIPITOR) 20 mg | mouth once daily | | | 20 | | | tablet | | | | | | + + + +---------+ + + | atorvaSTATin | Take 20 mg by mouth | | 0 | 06/09/20 | | | (LIPITOR) 40 mg | nightly. | | | 16 | | | tablet | | | | | | + + + +---------+ + + | ciprofloxacin | ciprofloxacin 0.3 % | | 0 | | | | (CILOXAN) 0.3% | eye drops | | | | | | ophthalmic solution | | | | | | + + + +---------+ + + | diclofenac | diclofenac 0.1 % eye | | 0 | | | | (VOLTAREN) 0.1 % | drops | | | | | | ophthalmic solution | | | | | | + + + +---------+ + + | doxazosin | take 1/2 tablet by | | 0 | 07/21/19 | | | (CARDURA) 8 MG | mouth twice a day | | | 17 | | | tablet | | | | | | + + + +---------+ + + | ibuprofen | ibuprofen 600 mg | | 0 | | | | (ADVIL,MOTRIN) 600 | tablet not taking | | | | | | MG tablet | | | | | | + + + +---------+ + + | lisinopril | Daily. | | 0 | | | | (PRINIVIL, ZESTRIL) | | | | | | | 10 mg tablet | | | | | | + + + +---------+ + + | pantoprazole | Take 40 mg by mouth | | 0 | 05/16/20 | | | (PROTONIX) 40 mg | Daily. | | | 16 | | | tablet | | | | | | + + + +---------+ + + | tamsulosin | take 1 capsule by | | 0 | /09/08 | | | (FLOMAX) 0.4 mg CAPS | mouth at bedtime | | | 20 | | + + + +---------+ + + | timolol maleate | | | 0 | /06/10 | | | (TIMOPTIC) 0.5% | | | | 19 | | | ophthalmic solution | | | | | | + + + +---------+ + + | valsartan (DIOVAN) | | | 0 | 07/15/19 | | | 160 mg tablet | | | | 20 | | + + + +---------+ + [...] [place] | | | | | | [address] | | | | | | | | +--------+---------+ + + + documented as of this encounter Procedures + +--------+ + + + | Procedure Name | Priori | Date/Time | Associated Diagnosis | Comments | | | ty | | | | + +--------+ + + + | XR ABDOMEN AP | Routin | 01/11/2020 | Left ureteral | Results for this | | | e | 9:19 AM | calculus | procedure are in the | | | | PDT | | results section. | + +--------+ + + + documented in this encounter Results XR Abdomen AP (01/11/2020 9:19 AM PDT) + + | Specimen | + + | | + + + + + | Impressions | Performed At | + + + | Left nephroureteral stent is present. 4 mm radiodensity projects | [facility] | | over the right renal midpole suspicious for a calculus. | | | Electronically signed by Perico Henry MD 01/11/2020 9:29 AM | | + + + + + + | Narrative | Performed At | + + + | XR ABDOMEN 1 VW 01/11/2020 9:19 AM HISTORY: Left ureteral | [facility] | | calculus, status pos laser lithotripsy 01/04/2020. COMPARISON: | | | 01/04/2020 FINDINGS: There is a nonobstructive bowel gas pattern. | | | Left nephroureteral stent is present. 4 mm radiodensity projects over | | | the right renal midpole suspicious for a calculus. No evidence of | | | organomegaly. Severe degenerative changes of the thoracic and lumbar | | | spine. Exostosis versus heterotopic ossification, versus enthesopathy | | | is seen at the expected left anterior superior iliac spine. | | | Sacroiliac joint degenerative changes are present. Bilateral hip | | | degenerative changes. | | + + + + + | Procedure Note | + + | Dante, [id number] - 01/11/2020 9:32 AM PDT XR ABDOMEN 1 VW 01/11/2020 9:19 AM | | | | HISTORY: Left ureteral calculus, status pos laser lithotripsy | | 01/04/2020. | | | | COMPARISON: 01/04/2020 | | | | FINDINGS: | | There is a nonobstructive bowel gas pattern. Left nephroureteral stent | | is present. 4 mm radiodensity projects over the right renal midpole | | suspicious for a calculus. No evidence of organomegaly. Severe | | degenerative changes of the thoracic and lumbar spine. Exostosis | | versus heterotopic ossification, versus enthesopathy is seen at the | | expected left anterior superior iliac spine. Sacroiliac joint | | degenerative changes are present. Bilateral hip degenerative changes. | | | | IMPRESSION: | | Left nephroureteral stent is present. 4 mm radiodensity projects over | | the right renal midpole suspicious for a calculus. | | | | | | | | Electronically signed by Perico Henry MD 01/11/2020 9:29 AM | + + + +---------+ + + | Performing | Address | City/State/Zipcode | Phone Number | | Organization | | | | + +---------+ + + | [facility] | | | | + +---------+ + + documented in this encounter Visit Diagnoses + + | Diagnosis | + + | Left ureteral calculus Calculus of ureter | + + documented in this encounter"
--- OUTSIDE RECORDS SUMMARY | ~2020-01-23 | XMS | Encounter Summary ---
Demographics + + + | Address | [address] | | | [place] [address] | + + + | Home Phone | | + + + | Preferred Language | Unknown | + + + | Marital Status | | + + + | Mormon Affiliation | 1013 | + + + | Race | Unknown | + + + | Ethnic Group | Unknown | + + + Author + + + | Author | [facility] | | | and [place] | + + + | Organization | [facility] | | | and [...] | | | | | [place] [address] | | + + + + + | Melissa Daley | ECON | [address] | | | | | [place] [address] | | + + + + + Care Team Providers + +------+ + | Care Primary Montessori Teacher Name | Role | Phone | + +------+ + | Jona Deal MD | PCP | | + +------+ + Encounter Details +--------+ + + + + | Date | Type | Department | Care Team | Description | +--------+ + + + + | 07/26/ | Orders Only | [facility] [place] | aMrci Mcneal, | Nocturnal hypoxemia | | 2013 | | PULMONARY [address] | RN | | | | | [place], | | | | | | [place] [address] | | | | | | [phone] | | | +--------+ + + + [...] [place] | | | | | | [address] | | | | | | | | +--------+---------+ + + + documented as of this encounter Visit Diagnoses + + | Diagnosis | + + | Nocturnal hypoxemia Hypoxemia | + + documented in this encounter"
--- OUTSIDE RECORDS SUMMARY | ~2020-01-23 | XMS | Encounter Summary ---
Demographics + + + | Address | [address] | | | [place] [address] | + + + | Home Phone | | + + + | Preferred Language | Unknown | + + + | Marital Status | | + + + | Restoration Affiliation | 1013 | + + + | Race | Unknown | + + + | Ethnic Group | Unknown | + + + Author + + + | Author | [facility] | | | and [place] | + + + | Organization | [facility] | | | [...] | | | | | [place] [address] | | + + + + + | Melissa Daley | ECON | [address] | | | | | [place] [address] | | + + + + + Care Team Providers + +------+ + | Care Nursing Aide Name | Role | Phone | + +------+ + | Jona Deal MD | PCP | | + +------+ + Encounter Details +--------+ + + + + | Date | Type | Department | Care Team | Description | +--------+ + + + + | 06/25/ | Orders Only | [facility] [place] | Marci Mcneal, | BOOP (bronchiolitis | | 2012 | | PULMONARY [address] | RN | obliterans with | | | | [place], | | organizing | | | | [place] [address] | | pneumonia) ([facility]) | | | | [phone] | | (Primary Dx); Other | | | | | | 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 | | | | | | ([facility]) | +--------+ + + + + Social [...] [place] | | | | | | [address] | | | | | | | | +--------+---------+ + + + + + +--------+ + + | Name | Type | Priori | Associated Diagnoses | Order Schedule | | | | ty | | | + + +--------+ + + | Pulse oximetry, | Respiratory | Routin | BOOP | 1 Occurrences | | overnight study | Care | e | (bronchiolitis | starting 06/25/2012 | | | | | obliterans with | until 06/25/2013 | | | | | organizing | | | | | | pneumonia) ([facility]) | | + + +--------+ + + documented as of this encounter Visit Diagnoses + + | Diagnosis | + + | 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
--- OUTSIDE RECORDS SUMMARY | ~2020-01-23 | XMS | Encounter Summary ---
Demographics + + + | Address | [address] | | | [place] [address] | + + + | Home Phone | | + + + | Preferred Language | Unknown | + + + | Marital Status | | + + + | Mosque Affiliation | 1013 | + + + | Race | Unknown | + + + | Ethnic Group | Unknown | + + + Author + + + | Author | [facility] | | | and [place] | + + + | Organization | [facility] | | | [...] | | | | | [place] [address] | | + + + + + | Melissa Daley | ECON | [address] | | | | | [place] [address] | | + + + + + Care Team Providers + +------+ + | Care Spout Positioner Name | Role | Phone | + +------+ + | Jona Deal MD | PCP | | + +------+ + Reason for Visit +--------+--------+ + | Reason | Onset | Comments | | | Date | | +--------+--------+ + | Other | 06/01/ | Discontinue portable oxygen | | | 2011 | | +--------+--------+ + Encounter Details +--------+ + + + + | Date | Type | Department | Care Team | Description | +--------+ + + + + | 06/01/ | Telephone | [facility] | Mike, | Other (Discontinue | | 2011 | | PULMONARY [address] | Carmelita Penny MD | portable oxygen) | | | | [place], | | | | | | [place] [address] | | | | | | [phone] | | | +--------+ + + + [...] this encounter Miscellaneous Notes Telephone Encounter - Sushil Crockett RN - 06/01/2012 2:51 PM PSTPatient's reached. Informed of result from PFT and order from Dr Mckeon to discontinue portable oxygen. V ronal Hinson in [place] faxed DC of portable Oxygen order. documented in this en counter Plan of Treatment +--------+---------+ + + + | Date | Type | Specialty | Care Team | Description | +--------+---------+ + + + | 01/21/ | Office | Urology | Kiko Garrido, | | | 2020 | Visit | | MD Jorge A HENRIQUEZ | | | | | | [place] | | | | | | [phone] | | | | | | | | +--------+---------+ + + + documented as of this encounter Visit Diagnoses Not on filedocumented in this encounter"
--- OUTSIDE RECORDS SUMMARY | ~2020-01-23 | XMS | Encounter Summary ---
Demographics + + + | Address | [address] | | | [place] [address] | + + + | Home Phone | | + + + | Preferred Language | Unknown | + + + | Marital Status | | + + + | Druze Affiliation | 1013 | + + + [...] | | | | | [place] [address] | | + + + + + | Melissa Sheldon | ECON | [address] | | | | | [place] [address] | | + + + + + Care Team Providers + +------+ + | Care Insurance Biller Name | Role | Phone | + +------+ + | Jona Deal MD | PCP | | + +------+ + Encounter Details +--------+ + + + + | Date | Type | Department | Care Team | Description | +--------+ + + + + | 05/17/ | Hospital | [facility] | | | | 2012 | Encounter | MED CTR XRAY [address] | | | | | | [facility] [place] | | | | | | [place] [address] | | | | | | [phone] | | | +--------+ + + + [...] [place] | | | | | | [place] | | | | | | [address] | | | | | | | | +--------+---------+ + + + documented as of this encounter Procedures + +--------+ + + + | Procedure Name | Priori | Date/Time | Associated Diagnosis | Comments | | | ty | | | | + +--------+ + + + | MRI LUMBAR SPINE WO | Routin | 05/17/2013 | | Results for this | | CONTRAST | e | 3:48 PM | | procedure are in the | | | | PST | | results section. | + +--------+ + + + documented in this encounter Results MRI Lumbar Spine wo Contrast (05/17/2013 3:48 PM PST) + + | Specimen | + + | | + + + + + | Narrative | Performed At | + + + | [facility] | [place] | | Department [address] [facility] | [facility] | | [ rep [address]] [ rep [facility] | | st zip] Signed | - IMAGING | | | | | Patient Name: RON SHELDON V Physician: | | | GIFF.[id number] : 1935 Age: 78 Sex: M Unit #: [id number] | | | Exam Date: 05/17/13 Location: [facility] [place] | | | Report #: [id number] Page: | | | %(RAD)RES..mtdd.print.filter("pg") of %(RAD) | | | RES..mtdd.print.filter("tpg") | | | | | | Accession Number: [id number] | | | MRI LUMBAR SPINE, 05/17/2013 CLINICAL HISTORY: BACK PAIN | | | WITH RADICULOPATHY. PRIOR BACK SURGERY IN THE . | | | TECHNIQUE: Multiplanar, multisequence imaging of the lumbar spine is | | | performed without the use of contrast. COMPARISON: | | | None. FINDINGS: There are 5 lumbar-type vertebral bodies. | | | Vertebral body heights are normally maintained. There is mild | | | levoscoliosis centered on L3. This is secondary to asymmetric disk | | | space narrowing and slight lateral subluxation of L3. In the | | | sagittal plane, alignment is normally maintained except at L5 -S1 | | | where 8 mm of anterolisthesis is present. Disk interspaces are | | | narrowed at every level, and bony fusion is present across the L5-S1 | | | disk interspace and the anterior margin of the L4-5 disk interspace | | | , presumably from prior surgery, with laminectomy changes at L3, L4 | | | and L5. Chronic reactive endplate changes are present at every | | | level. Conus terminates at L1. There is a 10 cm cyst on the upper | | | pole of the right kidney. [id number] analysis of | | | the axial images follows. T12-L1: Posterior facet | | | degenerative changes more severe on the left. There is also a small | | | broad- based disk bulge present, asymmetric to the left. These | | | changes combine to produce a severe left foraminal encroachment and | | | moderate central canal stenosis. L1-2: There is a | | | moderate (5 mm) broad-based disk bulge present across the entire | | | posterior aspect of the interspace. Posterior facet degenerative | | | changes are present. When superimposed on short pedicles , this | | | results in a mild central canal stenosis and left foraminal | | | encroachment. L2-3: There is a moderate broad-based | | | disk bulge along with posterior osteophytic ridging. Moderate | | | facet degenerative change is present. These changes do not produce a | | | significant central canal stenosis, but moderate left foraminal | | | encroachment is seen. There has been a laminectomy at the L3 | | | level. Posterior to the laminectomy, a well circumscribed, | | | approximately 1 x 2 cm fluid collection is present. Though a | | | definite connection to the thecal sac is not identified, this may | | | represent a post- surgical meningocele. Even though surgery was | | | greater than 30 years ago, it could also represent a persistent | | | seroma. L3-4: Laminectomy has also been performed at | | | this level. There is severe disk space narrowing, with endplate | | | osteophytes. Moderate facet degenerative change. No central canal | | | stenosis with moderate bilateral foraminal encroachment. | | | L3-4: This disk interspace is partially fused. No disk | | | protrusion. Posterior facet joints are also fused. There is no | | | central canal or foraminal encroachment. L5-S1: This is | | | a fused level and facet joints are also fused. No central canal or | | | foraminal encroachment. IMPRESSION: 1. | | | PRIOR L3 TO L5 LAMINECTOMIES WITH COMPLETE FUSION OF THE L5-S1 DISK | | | INTERSPACE AND PARTIAL FUSION OF L4-5. FACET JOINTS ARE ALSO FUSED | | | AT L4-5 AND L5-S1. ASIDE FROM MODERATE FORAMINAL NARROWING AT L3 | | | -4, NO NEURAL ENCROACHMENT IS SEEN AT THE OPERATIVE LEVELS. | | | 2. 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 | | | 3. WELL CIRCUMSCRIBED FLUID COLLECTION POSTERIOR TO THE L3 | | | VERTEBRAL BODY. THIS MAY REPRESENT POST SURGICAL MENINGOCELE OR | | | SEROMA. 4. INCIDENTAL NOTE OF A 10 CM UPPER POLE RIGHT | | | RENAL CYST. Dictated Date/Time: 05/17/2013 15:48 | | | Transcribed Date/Time: 05/17/2013 17:36 [employer]er [employer]: | | | <<Signature on File>> | | | | | | Tan Keenan MD05/18/13 0654 <Electronically signed by | | | Tan Keenan MD> Tan Keenan MD 05/17/13 | | | 1548 [employer]: [employer] [id number]/26/13 1736 | | | DO Jona Weir MD | | + + + + + + + + | Performing | Address | City/State/Zipcode | Phone Number | | Organization | | | | + + + + + | [facility] | [address] | [place] | [phone] | | [facility] | | [address] | | | - IMAGING | | | | + + + + + documented in this encounter Visit Diagnoses Not on filedocumented in this encounter
--- OUTSIDE RECORDS SUMMARY | ~2020-01-23 | XMS | Encounter Summary ---
Demographics + + + | Address | [address] | | | [place] [address] | + + + | Home Phone | | + + + | Preferred Language | Unknown | + + + | Marital Status | | + + + | Faith Affiliation | 1013 | + + + | Race | Unknown | + + + | Ethnic Group | Unknown | + + + Author + + + | Author | [facility] | | | and [place] | + + + | Organization | [facility] | | | [...] | | | | | [place] [address] | | + + + + + | Melissa Daley | ECON | [address] | | | | | [place] [address] | | + + + + + Care Team Providers + +------+ + | Care Assembler Corncob Pipes Name | Role | Phone | + [...] | Respiratory failure | | | | [place], | | ([facility]); Chronic | | | | [place] [address] | | hypoxemic | | | | [phone] | | respiratory failure | | | | | | ([facility]); Pneumonia; | | | | | [...] | 01/21/ | Office | Urology | HemaKiko, | | | 2020 | Visit | | MD Jorge A HENRIQUEZ | | | | | | [place], [place] | | | | | | [address] | | | | | | | [...]
--- OUTSIDE RECORDS SUMMARY | ~2020-01-23 | XMS | Encounter Summary ---
Demographics + + + | Address | [address] | | | [place] [address] | + + + | Home Phone | | + + + | Preferred Language | Unknown | + + + | Marital Status | | + + + | Hindu Affiliation | 1013 | + + + | Race | Unknown | + + + | Ethnic Group | Unknown | + + + Author + + + | Author | [facility] | | | and [place] | + + + | Organization | [facility] | | [...] | | | | | [place] [address] | | + + + + + | Melissa Daley | ECON | [address] | | | | | [place] [address] | | + + + + + Care Team Providers + +------+ + | Care Certified Ophthalmic Technologist Name | Role | Phone | + +------+ + | Bunny Corcoran | PCP | | | MD | | | + +------+ + Encounter Details +--------+ + + + + | Date | Type | Department | Care Team | Description | +--------+ + + + + | 12/19/ | Imaging | [facility] | Provider, | | | 2019 | Exam | [facility] | MD [address] | | | | | IMAGING [address] | [address] | | | | | [address] [place] | [place] [address] | | | | | [place] [address] | | | | | | [phone] | | | +--------+ + + + [...] [place] | | | | | | [address] | | | | | | | | +--------+---------+ + + + documented as of this encounter Procedures + +--------+ + + + | Procedure Name | Priori | Date/Time | Associated Diagnosis | Comments | | | ty | | | | + +--------+ + + + | CT ABDOMEN PELVIS W | Routin | 06/16/2018 | | Results for this | | CONTRAST | e | 12:00 AM | | procedure are in the | | | | PST | | results section. | + +--------+ + + + documented in this encounter Results CT Abdomen Pelvis w Contrast (06/16/2018 12:00 AM PST) + + | Specimen | [...]
--- OUTSIDE RECORDS SUMMARY | ~2020-01-23 | XMS | Encounter Summary ---
Demographics + + + | Address | [address] | | | [place] [address] | + + + | Home Phone | | + + + | Preferred Language | Unknown | + + + | Marital Status | | + + + | Roman Catholic Affiliation | 1013 | + + + | Race | Unknown | + + + | Ethnic Group | Unknown | + + + Author + + + | Author | [facility] | | | and [place] | + + + | Organization | [facility] | | [...] | | | | | [place] [address] | | + + + + + | Melissa Daley | ECON | [address] | | | | | [place] [address] | | + + + + + Care Team Providers + +------+ + | Care Laundrette Owner Name | Role | Phone | + [...] Description | +--------+--------+ + + + | 06/18/ | Refill | [facility] [place] | Carlieenstein, | Medication Refill | | 2013 | | PULMONARY [address] | Carmelita Penny MD | | | | | [place], | | | | | | [place] [address] | | | | | | [phone] | | | +--------+--------+ + + + [...] | | | | | | [place] | | | | | | [address] | | | | | | | [...]
--- OUTSIDE RECORDS SUMMARY | ~2020-01-23 | XMS | Encounter Summary ---
Demographics + + + | Address | [address] | | | [place] [address] | + + + | Home Phone | | + + + | Preferred Language | Unknown | + + + | Marital Status | | + + + | Temple Affiliation | 1013 | + + + | Race | Unknown | + + + | Ethnic Group | Unknown | + + + Author + + + | Author | [facility] | | | and [place] | + + + | Organization | [facility] | | | [...] | | | | | [place] [address] | | + + + + + | Melissa Sheldon | ECON | [address] | | | | | [place] [address] | | + + + + + Care Team Providers + +------+ + | Care Autoglazier Name | Role | Phone | + [...] + + | 09/29/ | Office | [facility] | Mike, | BOOP (bronchiolitis | | 2013 | Visit | PULMONARY [address] | Carmelita Penny MD | obliterans with | | | | [place], | | organizing | | | | [place] [address] | | pneumonia) ([facility]) | | | | [phone] | | (Primary Dx); | | | | | | Nocturnal hypoxemia; | | | | | | Diabetes mellitus | | | | | | ([facility]) | +--------+---------+ + + + Social History [...] in this encounter Patient Instructions Patient Instructions Carmelita Mckeon MD - 09/29/2012 11:41 AM PDTStop [...] his lungs. They return today for [facility] follow up. Currently they are able to [...] time. I think he may need it rodent exterminator. He is not ve ry interested in [...] made to ensure accuracy; however, inadvertent computerized supervisor quality control errors may be pre sent. documented in [...] [place] | | | | | | [address] | | | | | | | | +--------+---------+ + + + + +------+--------+ + + | Name | Type | Priori | Associated Diagnoses | Order Schedule | | | | ty | | | + +------+--------+ + + | Glucose, Fasting | Lab | Routin | Diabetes mellitus | 1 Occurrences | | | | e | ([facility]) | starting 09/29/2012 | | | | | | until 09/29/2013 | + +------+--------+ + + documented as of this encounter Results XR Chest PA and Lateral (04/01/2013 1:07 PM PDT) + + | Specimen | + + | | + + + + + | Narrative | Performed At | + + + | [facility] | [facility] | | Department [address] [place] [address] | [facility] | | [ rep [address]] [ rep [facility] | | [facility]] Signed | - IMAGING | | | | | Patient Name: RON SHELDON V Physician: | | | OFFE. : 1935 Age: 78 Sex: M Unit #: [id number] | | | Exam Date: 04/01/13 Location: [facility] | | | Report #: [id number] Page: | | | %(RAD)RES..mtdd.print.filter("pg") of %(RAD) | | | RES..mtdd.print.filter("tpg") | | | | | | Accession Number: [id number] | | | CHEST X-RAY CLINICAL HISTORY: [...] | | | Transcribed Date/Time: 04/01/2013 13:30 Welding Equipment Repairer Supervisor: | | | <<Signature on File>> | | | Mart | | | MD [place]04/01/13 4802 <Electronically signed by Mart Boyle MD> | | | Mart Boyle MD 04/01/13 1306 Welding Equipment Repairer Supervisor: [employer] | | | [id number]/11/13 1847 Carmelita Mckeon MD | | | | | + + + + + + + + | Performing | Address | City/State/Zipcode | Phone Number | | Organization | | | | + + + + + | [facility] | [address] 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
--- OUTSIDE RECORDS SUMMARY | ~2020-01-23 | XMS | Encounter Summary ---
Demographics + + + | Address | [address] | | | [place] [address] | + + + | Home Phone | | + + + | Preferred Language | Unknown | + + + | Marital Status | | + + + | Taoism Affiliation | 1013 | + + + [...] | | | | | [place] [address] | | + + + + + | Melissa Daley | ECON | [address] | | | | | [place] [address] | | + + + + + Care Team Providers + +------+ + | Care Hearing Care Professional Name | Role | Phone | + +------+ + PCP | Unavailable | + +------+ + Encounter Details +--------+ + + + + | Date | Type | Department | Care Team | Description | +--------+ + + + + | 10/10/ | Hospital | [facility] | Rakesh Ruiz MD | | | 2008 | Encounter | MED CTR GENERIC OP | [address], [place] | | | | | CONV DEPT [address] | [address] [place], [place] | | | | | [place], | [address] | | | | | [place] [address] | | | | | | [phone] | | | +--------+ + + + [...] [place] | | | | | | [address] | | | | | | | | +--------+---------+ + + + documented as of this encounter Visit Diagnoses Not on filedocumented in this encounter"
--- OUTSIDE RECORDS SUMMARY | ~2020-01-23 | XMS | Encounter Summary ---
Demographics + + + | Address | [address] | | | [place] [address] | + + + | Home Phone | | + + + | Preferred Language | Unknown | + + + | Marital Status | | + + + | Buddhism Affiliation | 1013 | + + + | Race | Unknown | + + + | Ethnic Group | Unknown | + + + Author + + + | Author | [facility] | | | and [place] | + + + | Organization | [facility] | | [...] | | | | | [place] [address] | | + + + + + | Melissa Sheldon | ECON | [address] | | | | | [place] [address] | | + + + + + Care Team Providers + +------+ + | Care Epic Cadence Specialists Name | Role | Phone | + +------+ + | Jona Deal MD | PCP | | + +------+ + Reason for Visit + + + | Reason | Comments | + + + | Follow-up | | + + + Encounter Details +--------+---------+ + + + | Date | Type | Department | Care Team | Description | +--------+---------+ + + + | 07/21/ | Office | [facility] | Mike, | BOOP (bronchiolitis | | 2012 | Visit | PULMONARY [address] | Carmelita Penny MD | obliterans with | | | | [place], | | organizing | | | | [place] [address] | | pneumonia) ([facility]) | | | | [phone] | | (Primary Dx); | | | | | | Nocturnal hypoxemia; | | | | | | 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02") | 07/21/2012 10:16 AM | | | | | PST | | + + + + + | Body Mass Index | 33.68 | 07/21/2012 10:16 AM | | | | | PST | | + + + + + documented in this encounter Patient Instructions Patient Instructions Carmelita Mckeon MD - 07/21/2012 11:01 AM PSTDecrease prednisone to 1/2 a 10mg tablet (5mg) every other day. We will talk to Joya about the oxygen test off of oxygen at night. Chest x-ray prior to next appointment. documented in this encounter Progress Notes Carmelita Mckeon MD - 07/21/2012 10:37 AM PSTFormatting of this note might be differe nt from the original. Pulmonary Follow Up HPI Ron Sheldon is a 77 y.o. male patient of Jona Deal here today for follow u p of bronchiolitis obliterans. At their last visit, we tapered his prednisone down to 5 mg a day. We rechecked his oxygen on 2LPM at night and it looked good. A repeat on RA was ordered, but was done again on 2LPM. Since his last visit he feels like he has been feeling good. He notes that he can walk a h libby a mile without stopping. He notes that before he got sick he dd have some impairment bec ause of back pain. He thinks he is close to his baseline. He is monitoring his saturations a nd he is running 94-95%. His notes he is not coming back from his daily walk panting. Anu lindo is walking under 1/2 mile, limited in part due to the weather. Part of his walk is a gentl e upslope. He does not cough chronically, and does not produce mucous. They have not had hemoptysis. He has been evaluated for nocturnal oxygen and does use it. They are currently on 2 LPM at night. They report good compliance. He still has some nasal congestion and nasal bleeding. He is on the fluticasone nasal spray once a day. He is not doing any rinsing. He does not have symptoms of heartburn or reflux. He is on medication for this. His blood sugars have been better, though he occasionally has gone up to 150-170. I reviewe d his blood sugar log in clinic today. Past Medical History Past Medical History Diagnosis [...] Morphine Medications: Outpatient Encounter Prescriptions as of 07/21/2012 Medication Sig Dispense Refill predniSONE (DELTASONE) 10 mg tablet Take 5 mg by mouth Daily. Continue 20mg a day until 06/27 then drop to 10mg a day. insulin aspart (NOVOLOG FLEXPEN) 100 units/mL injection Sliding Scale as previously wri tten. 15 mL 2 glucose blood test strips (ONE TOUCH ULTRA TEST) strip Use to test blood sugar 4 true es daily. 100 each 3 DISCONTD: predniSONE (DELTASONE) 10 mg tablet Continue 20mg a day until 06/27 then drop t o 10mg a day. 50 tablet 1 doxazosin (CARDURA) 4 mg tablet Take 4 mg by mouth 2 times daily. testosterone (ANDROGEL) 50 mg/5 g (1%) gel Inject 200 mg of testosterone into the muscl e Daily. Every three weeks. metFORMIN (GLUCOPHAGE) 500 mg tablet Take 1 tablet by mouth daily (with breakfast). 30 tablet 0 atenolol (TENORMIN) 100 MG tablet Take 100 mg by mouth 2 times daily. allopurinol (ZYLOPRIM) 100 mg tablet Take 200 mg by mouth Daily. lisinopril (PRINIVIL, ZESTRIL) 10 mg tablet Take 10 mg by mouth Daily. acetaminophen (TYLENOL) 650 MG CR tablet Take 650 mg by mouth every 8 hours as needed. omeprazole (PRILOSEC) 20 mg capsule Take 20 mg by mouth 2 times daily. atorvaSTATin (LIPITOR) 20 mg tablet Take 20 mg by mouth Daily. amLODIPine (NORVASC) 5 mg tablet Take 5 mg by mouth Daily. fluticasone (FLONASE) 50 mcg/nasal spray 2 sprays by Nasal route Daily. @ sprays in eac h nostril daily 16 g 12 albuterol-ipratropium (DUONEB) 2.5-0.5 mg/3 mL SOLN Take 3 mLs by nebulization. Review of Systems Constitutional: Denies fever, chills, sweats. Has regained weight he had lost. He is no lo nger gaining weight. Sleep: Denies difficulty sleeping, and daytime sleepiness. He still does snore, though les s so. Less tired during the daytime. Eyes: Denies vision change and eye irritation. ENT: Denies earache, sore throat, and hoarseness. Baseline hearing loss, has nasal congest ion, improved and some scant nasal bleeding. Resp: See HPI. CV: Denies chest pain, palpitations, syncope, and peripheral edema. GI: Denies nausea, vomiting, and abdominal pain. : Denies difficulty emptying bladder. Still has frequent nocturia. Musculoskeletal: Denies joint pain/stiffness, joint swelling, and muscle cramps. Objective BP 130/80 | Pulse 66 | Ht 1.753 m (5' 9.02") | Wt 103.511 kg (228 lb 3.2 oz) | BMI 33.68 kg /m2 | SpO2 96% General Appearance: Alert, cooperative, no distress, appears stated age Head: Normocephalic, without obvious abnormality, atraumatic Eyes: PERRL, conjunctiva clear, no scleral icterus, EOM's intact Ears: Hearing aids in place and markedly diminished hearing Nose: Nares normal, septum midline, mucosa remains mildly edematous Mouth: No oral lesions or exudate Neck: Supple, symmetrical, no adenopathy Lungs: No accessory muscle use, breath sounds are clear to auscultation bilaterally, no w heezes, crackles or rhonchi Chest Wall: No deformity Heart: Regular rate and rhythm, no murmur, rub or gallop Abdomen: Soft, non-tender, non-distended, mildly obese Extremities: No cyanosis or clubbing, trace to 1+ edema Pulses: Radial pulses 1+ and symmetric Skin: Warm and dry Lymph nodes: Cervical and supraclavicular nodes normal Neurologic: Gait normal Data: Chest x-ray was done prior to clinic today and was reviewed and interpreted in clinic today . It shows continued slow improvement in the patchy consolidative and ground glass opacities . Overnight oximetry was done on 2LPM and showed his saturation remained mostly around 94-95% . Assessment /Plan Mr. Sheldon was seen today for follow-up of BOOP. Diagnoses and associated orders for this visit: Boop (bronchiolitis obliterans with organizing pneumonia) This continues to steadily improve. His chest x-ray is clearing slowly, though remains some what abnormal. We will taper his prednisone down. I am reluctant to stop it abruptly as he h as been on it for 2 months, so we will switch to every other day dosing, and continue this f or a month before stopping to allow his adrenal glands time to regenerate function. Recheck chest x-ray in a month. He will eventually need a follow up CT scan, but I would plan on jenn t in several months. - predniSONE (DELTASONE) 10 mg tablet; Take 0.5 tablets by mouth every other day. - XR Chest PA and Lateral; Future Nocturnal hypoxemia He looks good on 2LPM, but the hope is we can discontinue this. He had 2 overnight oximetri es done on 2LPM for unclear reasons, the second having been ordered for room air. I will hav guicho Hinson repeat this on room air. It may be he requires 1-2LPM at night for a prolonged per iod of time. He continues to decline sleep study. Steroid-induced diabetes Blood sugars remain high, and I think he still requires the metformin, though his need for the insulin sliding scale is dwindling. I refilled his metformin for now, and he will follow up with Dr. Deal. Last BMP showed a good creatinine at 1.06. He is not sure if Dr. Fox rd checked this more recently, we will get his labs from there. If not, he should have a BMP checked in the next month or so. - metFORMIN (GLUCOPHAGE) 500 mg tablet; Take 1 tablet by mouth daily (with breakfast). Need for pneumococcal vaccination He did receive a flu vaccine but has not had a pneumococcal vaccine in 10-12 years and has only received one previously. We will update today. - Pneumococcal polysaccharide vaccine 23-valent greater than or equal to 2yo subcu Return to clinic in 4 weeks with repeat chest x-ray, or sooner with concerns. CC: Jona Deal documented in t his encounter Plan of Treatment +--------+---------+ + + + | Date | Type | Specialty | Care Team | Description | +--------+---------+ + + + | 01/21/ | Office | Urology | Kiko Garrido, | | | 2020 | Visit | | MD Jorge A HENRIQUEZ | | | | | | [place] | | | | | | [phone] | | | | | | | | +--------+---------+ + + + documented as of this encounter Results XR Chest PA and Lateral (08/16/2012 11:14 AM PST) + + | Specimen | + + | | + + + + + | Narrative | Performed At | + + + | [facility] | [place] | | Department [address] [facility], [place] | [facility] | | [ rep [address]] [ rep [facility] | | st zip] Signed | - IMAGING | | | | | Patient Name: RON SHELDON V Physician: | | | DOROTEO. : 1935 Age: 77 Sex: M Unit #: [id number] | | | Exam Date: 08/16/12 [place] [facility] | | | Report #: [id number] Page: | | | %(RAD)RES..mtdd.print.filter("pg") of %(RAD) | | | RES..mtdd.print.filter("tpg") | | | | | | Accession Number: [id number] | | | CHEST X-RAY CLINICAL HISTORY: FOLLOWUP OF BOOP. | | | COMPARISON: Numerous previous chest x-rays, most recently | | | 07/21/2012. FINDINGS: PA and lateral views of the chest | | | were obtained. Again visualized are diffuse reticulonodular | | | opacities involving the bilateral lungs with some thicker scarring in | | | the right mid lung, stable. Cardiomediastinal silhouette is normal. | | | There are moderate degenerative osteophytes of the thoracic spine | | | with some bridging. IMPRESSION: 1. 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 | | | Dictated Date/Time: 08/16/2012 11:14 Transcribed Date/Time: | | | 08/16/2012 11:23 Hyperion Analyst: | | | <<Signature on File>> | | | Mart | | | MD [place]08/16/12 1439 <Electronically signed by Mart Boyle MD> | | | Mart Boyle MD 08/16/12 1114 Hyperion Analyst: [place] | | | [id number]/25/13 1123 Carmelita Mckeon MD | | | | | + + + + + + + + | Performing | Address | City/State/Zipcode | Phone Number | | Organization | | | | + + + + + | [facility] | [address] 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
--- OUTSIDE RECORDS SUMMARY | ~2020-01-23 | XMS | Encounter Summary ---
Demographics + + + | Address | [address] | | | [place] [address] | + + + | Home Phone | | + + + | Preferred Language | Unknown | + + + | Marital Status | | + + + | Tenriism Affiliation | 1013 | + + + | Race | Unknown | + + + | Ethnic Group | Unknown | + + + Author + + + | Author | [facility] | | | and [place] | + + + | Organization | [facility] | | [...] | | | | | [place] [address] | | + + + + + | Melissa Daley | ECON | [address] | | | | | [place] [address] | | + + + + + Care Team Providers + +------+ + | Care Referral Management Liaison Name | Role | Phone | + [...] Description | +--------+---------+ + + + | 04/01/ | Office | [facility] | Mike, | BOOP (bronchiolitis | | 2012 | Visit | PULMONARY [address] | Carmelita Penny MD | obliterans with | | | | [place], | | organizing | | | | [place] [address] | | pneumonia) (HCC) | | | | [phone] | | (Primary Dx); | | | | | | Nocturnal hypoxemia; | | | | | | Diabetes mellitus, | | | | | | type 2 ([facility]); | | | | | | Chronic rhinitis | +--------+---------+ + + + Social History [...] + + + | Blood Pressure | 160/82 | 04/01/2013 10:53 AM | | | | | PDT | | + + + + + | Pulse | 61 | 04/01/2013 10:53 AM | | | | | PDT | | + + + + + | Temperature | - | - | | + + + + + | Respiratory Rate | - | - | | + + + + + | Oxygen Saturation | 96% | 04/01/2013 10:53 AM | | | | | PDT | | + + + + + | Inhaled Oxygen | - | - | | | Concentration | | | | + + + + + | Weight | 102.1 kg (225 lb) | 04/01/2013 10:53 AM | | | | | PDT | | + + + + + | Height | 175.3 cm (5' 9") | 04/01/2013 10:53 AM | | | | | PDT | | + + + + + | Body Mass Index | 33.23 | 04/01/2013 10:53 AM | | | | | PDT | | + + + + + documented in this encounter Patient Instructions Patient Instructions Carmelita Mckeon MD - 04/01/2013 11:46 AM PDTDo an overnight oxy gen test through [employer]. Call to have a box delivered by the [employer]. Wear the finger probe through the night. Do the test on room air. Call the [employer] to contreras ve the box picked up the following day. Try a Librado Med Sinus Rinse for your nose once a day. documented in this encounter Progress Notes Carmelita Mckeon MD - 04/01/2013 11:18 AM PDTFormatting of this note might be differe nt from the original. Pulmonary Follow Up MD [facility] [address] [facility] [place], [address] HPI Ron Daley is a 78 y.o. 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 He had a fasting blood sugar on Thursday, and it was 103. He stopped the metformin on Thursday. He has been checking his blood sugars before supper and they have been 100-120. [facility], off the prednisone, he did have a blood sugar before dinner of 204. It was not a fast ing blood sugar, but a before dinner. Since his last visit, he had kidney stones removed. His kidney stones were tested and appar ently showed that he needed more calcium in his diet. He also cannot have berries. His breathing has been fine. He is still exercising, and staying active. He is not getting any more shortness of breath. He is not having much in the way of cough unless he chokes on phlegm or spit that he swallows. He does not produce anything when he coughs. He does not co ugh when he eats. He still checks his oxygen periodically and it has been staying good. He is still on oxygen at night, and would like to come off of this if he can. We last tested him in July, and left him on 2L at night. He still has a drippy nose. He is still on the fluticasone nasal spray. Past Medical History Past Medical History Diagnosis Date BOOP (bronchiolitis obliterans with organizing pneumonia) Acute respiratory failure with hypoxia Hypertension Dyslipidemia Colon polyps Acid reflux disease Cough Sinus infection Hyperlipidemia Diverticulosis Nephrolithiasis recurrent, calcium oxalate crystals Cataract Carpal tunnel syndrome Osteoarthritis Walking pneumonia Steroid-induced diabetes Past Surgical History Past Surgical History Procedure Date Colonoscopy Appendectomy age 8 Cholecystectomy Ankle fusion right, x2 Shoulder surgery x2 Back surgery x3 including 2 laminectomies and one fusion Total knee arthroplasty Tonsillectomy Carpal tunnel release Kidney stones removed Social History: History Social History Marital Status: Spouse Name: N/A Number of Children: N/A Years of Education: N/A Social History Main Topics Smoking status: Never Smoker Smokeless tobacco: Never Used Alcohol Use: No Drug Use: No Sexually Active: None Other Topics Concern None Social History Narrative None Allergies: Allergies Allergen Reactions Iodine IV Iodine Meperidine Morphine Medications: Outpatient Encounter Prescriptions as of 04/01/2013 Medication Status Sig Dispense Refill acetaminophen (TYLENOL) 650 MG CR tablet Active Take 650 mg by mouth every 8 hours as n eeded. allopurinol (ZYLOPRIM) 100 mg tablet Active Take 200 mg by mouth Daily. amLODIPine (NORVASC) 5 mg tablet Active Take 5 mg by mouth Daily. atenolol (TENORMIN) 100 MG tablet Active Take 100 mg by mouth 2 times daily. atorvaSTATin (LIPITOR) 20 mg tablet Active Take 20 mg by mouth Daily. doxazosin (CARDURA) 4 mg tablet Active Take 4 mg by mouth 2 times daily. fluticasone (FLONASE) 50 mcg/nasal spray Active 2 sprays by Nasal route Daily. @ sprays in each nostril daily 16 g 12 lisinopril (PRINIVIL, ZESTRIL) 10 mg tablet Active Take 10 mg by mouth Daily. ONE TOUCH ULTRA TEST strip Active USE TO TEST 4 TIMES DAILY 100 each 3 testosterone (ANDROGEL) 50 mg/5 g (1%) gel Active Inject 200 mg of testosterone into th e muscle Daily. Every three weeks. Review of Systems Constitutional: Denies fever, chills, sweats. Weight has been stable. He is [address] than last year. Sleep: Snoring less than before. His denies any choking, gasping or snorting in his s leep. Eyes: Denies vision change and eye irritation. ENT: Denies earache, nosebleeds, sore throat, and hoarseness. Baseline hearing loss. Conchita y congested nose. He blows out slightly bloody chunks every morning. Resp: See HPI. CV: Denies chest pain, palpitations, syncope, and peripheral edema. Objective BP 160/82 | Pulse 61 | Ht 1.753 m (5' 9") | Wt 102.059 kg (225 lb) | BMI 33.23 kg/m2 | SpO2 96%RA General Appearance: Alert, cooperative, no distress, appears stated age Head: Normocephalic, without obvious abnormality, atraumatic Eyes: PERRL, conjunctiva clear, no scleral icterus, EOM's intact Ears: Hearing aides in place, diminished acuity Nose: Nares normal, septum is somewhat deviated, mucosa edematous Mouth: No oral lesions or exudate Neck: Supple, symmetrical, no adenopathy Lungs: No accessory muscle use, breath sounds are somewhat diminished bilaterally, no whe ezes, crackles or rhonchi Chest Wall: No deformity Heart: Regular rate and rhythm, no murmur, rub or gallop Abdomen: Soft, non-tender, non-distended, mildly obese Extremities: No cyanosis, clubbing, trace edema of right leg Pulses: Radial pulses 1+ and symmetric Skin: Warm and dry Lymph nodes: Cervical and supraclavicular nodes normal Data: Fasting glucose is 103. Chest x-ray was done prior to clinic today and was reviewed and interpreted in clinic today . It shows a stable right sided linear scar. He does have flattening of the diamond diaphragms on lateral view. Immunization History Administered Date(s) Administered INFLUENZA, PRESERVATIVE FREE IM 05/25/2012, 03/25/2013 Pneumococcal (Adult) 06/23/2002, 07/21/2012 Assessment 1. BOOP (bronchiolitis obliterans with organizing pneumonia) - Chest x-ray is stable today. He remains with a linear scar on the right side, which I suspect is not going to resolve. 2. Nocturnal hypoxemia - He remains on 2L. He would like to get off of this, though I suspe ct he will require this. I suspect he has sleep apnea, or at least some degree of obesity hy poventilation at baseline +/- some degree of chronic lung disease. 3. Diabetes mellitus, type 2 - Baseline fasting blood sugar is mildly elevated, but even on metformin, his pre prandial sugar hits 204 with dietary indiscretion. I strongly suspect he has type 2 diabetes. That being said, I think he can likely be diet controlled, off medicat ion based on pre prandial blood sugars checked off steroids and off metformin. I asked that they follow up with Dr. Deal for further management. 4. Chronic rhinitis - Suspect allergic. He initially reported some response to fluticasone, but now has some increased symptoms. There oxygen probably aggravates his symptoms. I sugge sted adding a Librado Med sinus rinse. Plan 1.Recheck nocturnal oximetry on room air. 2.Librado Med Sinus rinse today, bottle provided in clinic. He was told to use distilled water and not well water. 3.He will follow up with Dr. Deal regarding his likely diabetes, which can likely be t controlled. He was advised to call if new pulmonary symptoms were to develop. I did not schedule a routine follow up, though I am happy to see back if needed. CC: Jona Deal Portions of this report were transcribed using voice recognition software. Every effort wa s made to ensure accuracy; however, inadvertent computerized press operator carbon products errors may be pre sent. documented in t his encounter Procedure Notes JUSTICE CEDENO - 03/25/2013 12:00 AM PDTAssociated Order(s): LABS - EXTERNAL SCANElectron ically signed by Shaquille Villaseñor at 04/05/2013 10:42 AM PDTdocumented in this encounter Plan of Treatment +--------+---------+ + + + | Date | Type | Specialty | Care Team | Description | +--------+---------+ + + + | 08/02/ | Office | Urology | PaterosKiko noguera, | | | 2020 | Visit | | MD Jorge A HENRIQUEZ | | | | | | [place] | | | | | | [address] | | | | | | | | +--------+---------+ + + + + + +--------+ + + | Name | Type | Priori | Associated Diagnoses | Order Schedule | | | | ty | | | + + +--------+ + + | Pulse oximetry, | Respiratory | Routin | Nocturnal | Expected: | | overnight study | Care | e | hypoxemia | 04/01/2013, Expires: | | | | | | 04/01/2014 | + + +--------+ + + documented as of this encounter Procedures + +--------+ + + + | Procedure Name | Priori | Date/Time | Associated Diagnosis | Comments | | | ty | | | | + +--------+ + + + | LABS - EXTERNAL SCAN | | 03/25/2013 | | | | | | 12:00 AM | | | | | | PDT | | | + +--------+ + + + documented in this encounter Visit Diagnoses + + | Diagnosis | + + | BOOP (bronchiolitis obliterans with organizing pneumonia) (HCC) - Primary 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
--- OUTSIDE RECORDS SUMMARY | ~2020-01-23 | XMS | Encounter Summary ---
Demographics + + + | Address | [address] | | | [place] [address] | + + + | Home Phone | | + + + | Preferred Language | Unknown | + + + | Marital Status | | + + + | Pentecostal Affiliation | 1013 | + + + [...] | | | | | [place] [address] | | + + + + + | Melissa Daley | ECON | [address] | | | | | [place] [address] | | + + + + + Care Team Providers + +------+ + | Care Camp Coordinator Name | Role | Phone | + [...] | | | [address] | [place] [address] | | | | | [place] [address] | | | | | | [phone] | | | +--------+ + + + [...] [place] | | | | | | [address] | | | | | | | [...]
--- OUTSIDE RECORDS SUMMARY | ~2020-01-23 | XMS | Encounter Summary ---
Demographics + + + | Address | [address] | | | [place] [address] | + + + | Home Phone | | + + + | Preferred Language | Unknown | + + + | Marital Status | | + + + | Quaker Affiliation | 1013 | + + + | Race | Unknown | + + + | Ethnic Group | Unknown | + + + Author + + + | Author | [facility] | | | and [place] | + + + | Organization | [facility] | | | [...] | | | | | [place] [address] | | + + + + + | Melissa Daley | ECON | [address] | | | | | [place] [address] | | + + + + + Care Team Providers + +------+ + | Care Humane Officer Name | Role | Phone | + +------+ + | Bunny Corcoran | PCP | | | MD | | | + +------+ + Reason for Visit Auth/Cert +--------+--------+ + + + + | Status | Reason | Specialty | Diagnoses / | Referred By | Referred To | | | | | Procedures | Contact | Contact | +--------+--------+ + + + + | | | | Diagnoses | | Hema, | | | | | Left | | Kiko Gomez MD | | | | | ureteral | | [address] | | | | | calculus | | [place] | | | | | Procedures | | [place] | | | | | [place] | | [address] Phone: | | | | | CYSTO/URETER | | [phone] | | | | | O | | Fax: | | | | | W/LITHOTRIPS | | [phone] | | | | | Y &LIZ | | | | | | | STENT INSRT | | | | | | | CYSTOSCOPY | | | | | | | LEFT | | | | | | | URETEROSCOPY | | | | | | | W/ LASER | | | | | | | LITHOTRIPSY, | | | | | | | POSSIBLE | | | | | | | LEFT | | | | | | | URETERAL | | | | | | | STENT | | | | | | | REPLACEMENT | | | +--------+--------+ + + + + Encounter Details +--------+ + + + + | Date | Type | Department | Care Team | Description | +--------+ + + + + | 01/03/ | Hospital | [facility] | Kiko Garrido, | | | 2019 | Encounter | MED CTR XRAY [address] | [address] | | | | | [place] | [place] | | | | | [place] [address] | [address] | | | | | [phone] | | | +--------+ + + + [...] mg by mouth | | 0 | 05/16/ | | | (PROTONIX) 40 mg | Daily. | | | 16 | | | tablet | | | | | | + + + +---------+ + + | tamsulosin | take 1 capsule by | | 0 | //20 | | | (FLOMAX) 0.4 mg CAPS | mouth at bedtime | | | 20 | | + + + +---------+ + + | timolol maleate | | | 0 | //20 | | | (TIMOPTIC) 0.5% | | | | 19 | | | ophthalmic solution | | | | | | + + + +---------+ + + | valsartan (DIOVAN) | | | 0 | 07/15/19 | | | 160 mg tablet | | | | 20 | | + + + +---------+ + + | cephalexin | Take 1 capsule by | 6 | 0 | 01/05/20 | | | (KEFLEX) 500 mg | mouth 3 times daily | capsule | | 20 | 0 | | capsule | for 2 days. | | | | | + + [...] | | | | | | [place] | | | | | | [address] | | | | | | | | +--------+---------+ + + + documented as of this encounter Procedures + +--------+ + + + | Procedure Name | Priori | Date/Time | Associated Diagnosis | Comments | | | ty | | | | + +--------+ + + + | FL PYELOGRAM | Routin | 01/04/2020 | | Results for this | | RETROGRADE | e | 3:42 PM | | procedure are in the | | | | PDT | | results section. | + +--------+ + + + documented in this encounter Results FL Pyelogram Retrograde (01/04/2020 3:42 PM PDT) + + | Specimen | + + | | + + + + + | Impressions | Performed At | + + + | FINDING/IMPRESSION: Fluoroscopic images are obtained | [facility] | | intraoperatively during a retrograde pyelogram. A double-J ureteral | | | stent is in place. See procedure report for further details. | | | Electronically signed by Deny Gomez MD 01/04/2020 8:36 PM | | + + + + + + | Narrative | Performed At | + + + | | [facility] | + + + + + | Procedure Note | + + | [place], [id number] - 01/04/2020 8:39 PM PDT | | IMPRESSION: | | FINDING/IMPRESSION: | | | | Fluoroscopic images are obtained intraoperatively during a retrograde | | pyelogram. A double-J ureteral stent is in place. See procedure report | | for further details. | | | | Electronically signed by Deny Gomez MD 01/04/2020 8:36 PM | + + + +---------+ + + | Performing | Address | City/State/Zipcode | Phone Number | | Organization | | | | + +---------+ + + | [facility] | | | | + +---------+ + + documented in this encounter Visit Diagnoses Not on filedocumented in this encounter"
--- OUTSIDE RECORDS SUMMARY | ~2020-01-23 | XMS | Encounter Summary ---
Demographics + + + | Address | [address] | | | [place] [address] | + + + | Home Phone [...] | | | | | [place] [address] | | + + + + + | Melissa Sheldon | ECON | [address] | | | | | [place] [address] | | + + + + + Care Team Providers + +------+ + | Care Senior Controls Technician Name | Role | Phone | [...] + + | 07/21/ | Office | [facility] | Mike, | BOOP (bronchiolitis | | 2012 | Visit | PULMONARY [address] | Carmelita Penny MD | obliterans with | | | | [place], | | organizing | | | | [place] [address] | | pneumonia) ([facility]) | | | | [phone] | | (Primary Dx); | | | | | | Nocturnal hypoxemia; | | | | | | 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[facility]); Need | | | | | | [...] | | | | | [place] | | | | | | [id number] | | | | | | | | +--------+---------+ + + + documented as of this encounter Results XR Chest PA and Lateral (08/16/2012 11:14 AM PST) + + | Specimen | + + | | + + + + + | Narrative | Performed At | + + + | [facility] | LESL[place] | | Department [address] [facility], [place] | [facility] | | [ rep [address]] [ rep [facility] | | st zip] Signed | - IMAGING | | | | | Patient Name: RON SHELDON V Physician: | | | DOROTEO. : 1935 Age: 77 Sex: M Unit #: [id number] | | | Exam Date: 08/16/12 Location: [facility] | | | Report #: [id number] Page: | | | %(RAD)RES..mtdd.print.filter("pg") of %(RAD) | | | RES..mtdd.print.filter("tpg") | | | | | | Accession Number: [id number] | | | CHEST X-RAY CLINICAL HISTORY: [...] Transcribed Date/Time: | | | 08/16/2012 11:23 Cake Decorator: | | | <<Signature on File>> | | | Mart | | | MD [place]08/16/12 1439 <Electronically signed by Mart Boyle MD> | | | Mart Boyle MD 08/16/12 1114 Cake Decorator: Cayetano | | | Nlffmslbydhcv55/25/13 1123 Carmelita Mckeon MD | | | | | + + + + + + + + | Performing | Address | City/State/Zipcode | Phone Number | | Organization | | | | + + + + + | [facility] | [address] | [place] | [phone] | | [facility] | | [address] | | | - IMAGING | | [...]
--- OUTSIDE RECORDS SUMMARY | ~2020-01-23 | XMS | Encounter Summary ---
Demographics + + + | Address | [address] | | | [place] [address] | + + + | Home Phone | | + + + | Preferred Language | Unknown | + + + | Marital Status | | + + + | Church Affiliation | 1013 | + + + [...] | | | | | [place] [address] | | + + + + + | Melissa Daley | ECON | [address] | | | | | [place] [address] | | + + + + + Care Team Providers + +------+ + | Care Diesel Engine Mechanic Name | Role | Phone | + +------+ + | Bunny Corcoran | PCP | | | MD | | | + +------+ + Encounter Details +--------+ + + + + | Date | Type | Department | Care Team | Description | +--------+ + + + + | 12/25/ | Prep for | [facility] | Kiko Garrido, | | | 2019 | Procedure | [address] | MD [address] | | | | | [place] | [place] | | | | | [address] | [address] | | | | | [phone] | | | +--------+ + + + [...] [place] | | | | | | [address] | | | | | | | | +--------+---------+ + + + documented as of this encounter Visit Diagnoses Not on filedocumented in this encounter"
--- OUTSIDE RECORDS SUMMARY | ~2020-01-23 | XMS | Encounter Summary ---
Demographics + + + | Address | [address] | | | [place] [address] | + + + | Home Phone | | + + + | Preferred Language | Unknown | + + + | Marital Status | | + + + | Advent Affiliation | 1013 | + + + | Race | Unknown | + + + | Ethnic Group | Unknown | + + + Author + + + | Author | [facility] | | | and [place] | + + + | Organization | [facility] | | | [...] | | | | | [place] [address] | | + + + + + | Melissa Daley | ECON | [address] | | | | | [place] [address] | | + + + + + Care Team Providers + +------+ + | Care Loftsman/Woman Name | Role | Phone | + +------+ + | Jona Deal MD | PCP | | + +------+ + Encounter Details +--------+ + + + + | Date | Type | Department | Care Team | Description | +--------+ + + + + | 07/30/ | Orders Only | [facility] | Marci Mcneal, | Other specified | | 2012 | | PULMONARY [address] | RN | alveolar and | | | | [place], | | parietoalveolar | | | | [place] [address] | | pneumonopathies | | | | [phone] | | ([facility]); | | | | | | Bronchiectasis | | | | | | without acute | | | | | | exacerbation ([facility]); | | | | | | Hypoxemia | +--------+ + + + + Social [...] [place] | | | | | | [address] | | | | | | | | +--------+---------+ + + + documented as of this encounter Visit Diagnoses + + | Diagnosis | + + | Other specified alveolar and parietoalveolar pneumonopathies | + + | Bronchiectasis without acute exacerbation (HCC) Bronchiectasis without acute | | exacerbation | + + | Hypoxemia | + + documented in this encounter"
--- OUTSIDE RECORDS SUMMARY | ~2020-01-23 | XMS | Encounter Summary ---
Demographics + + + | Address | [address] | | | [place] [address] | + + + | Home Phone | | + + + | Preferred Language | Unknown | + + + | Marital Status | | + + + | Sabianist Affiliation | 1013 | + + + [...] | | | | | [place] [address] | | + + + + + | Melissa Daley | ECON | [address] | | | | | [place] [address] | | + + + + + Care Team Providers + +------+ + | Care Supervisor Throwing Department Name | Role | Phone | + [...] [place], | | | | | ([facility]) | [place], | [place] [address] | | | | | Procedures | [place] | Phone: | | | | | [place] OFFICE | [address] | [phone] | | | | | OUTPATIENT | Phone: | Fax: | | | | | NEW 45 | [phone] | [phone] | | | | | MINUTES VB NET PROGRAMMER | Fax: | | | | | | | [phone] | | +--------+--------+ + + + + Encounter Details +--------+---------+ + + + | Date | Type | Department | Care Team | Description | +--------+---------+ + + + | 06/08/ | Office | [facility] | Alex Nam | 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 Nahun vang in [place]. Reports he did his total knees. [...] and numbness in his toes. CARDIAC: Denies DE, chest pain or tightness. RISK: Never smoker, Denies diabetes. Father had DE SANDRA Score: 5 SANDRA Risk Score 06/08/2017 Risk for Obstructive Sleep Apnea Suspected Risk for SANDRA RECENT TEST RESULTS and IMAGING: Miguel [place] nutrition specialist. RIGHT: 1.12 LEFT 1.19 NOTES: Bilateral [...] intact, face symmetric, tongue protrudes midline Equal supervisor assembling and plantar flexion, no pronator drift, Gait [...] . To keep the paper work barbara london, will ask Primary Care to put in [...] edited this note. Lisseth Santo CMA 06/08/17 IAlex MD, FACS, personally performed the services described in this docume ntation, as scribed by Lisseth Santo CMA in my presence, and it is both accurate and complet e. Lisseth Sanot CMA 06/08/2017 14:49 CC: Jona Deal MDElectronically [...]
--- OUTSIDE RECORDS SUMMARY | ~2020-01-23 | XMS | Encounter Summary ---
Demographics + + + | Address | [address] | | | [place] [address] | + + + | Home Phone | | + + + | Preferred Language | Unknown | + + + | Marital Status | | + + + | Rastafarian Affiliation | 1013 | + + + | Race | Unknown | + + + | Ethnic Group | Unknown | + + + Author + + + | Author | [facility] | | | and [place] | + + + | Organization | [facility] | | [...] | | | | | [place] [address] | | + + + + + | Melissa Daley | ECON | [address] | | | | | [place] [address] | | + + + + + Care Team Providers + +------+ + | Care Adult School Counselor Name | Role | Phone | + [...] | | | | | | [place] [address] | | | | | | [phone] | | | +--------+ + + + [...] Telephone Encounter - Marci Mcneal RN - 04/29/2013 10:53 AM PSTCalguanaco Velasquez and [...] [place] | | | | | | [address] | | | | | | | | +--------+---------+ + + + documented as of this encounter Visit Diagnoses Not on filedocumented in this encounter"
--- OUTSIDE RECORDS SUMMARY | ~2020-01-23 | XMS | Encounter Summary ---
Demographics + + + | Address | [address] | | | [place] [address] | + + + | Home Phone | | + + + | Preferred Language | Unknown | + + + | Marital Status | | + + + | Voodoo Affiliation | 1013 | + + + | Race | Unknown | + + + | Ethnic Group | Unknown | + + + Author + + + | Author | [facility] | | | and [place] | + + + | Organization | [facility] | | | and [...] | | | | | [place] [address] | | + + + + + | Melissa Daley | ECON | [address] | | | | | [place] [address] | | + + + + + Care Team Providers + +------+ + | Care Lumber Racker Name | Role | Phone | + +------+ + | Joan Deal MD | PCP | | + +------+ + Encounter Details +--------+ + + + + | Date | Type | Department | Care Team | Description | +--------+ + + + + | 01/12/ | Hospital | [facility] | Offenstein, | DM type 2 (diabetes | | 2013 | Encounter | [facility] | Carmelita Penny MD | mellitus, type 2) | | | | [address] | | ([facility]) | | | | [place] | | | | | | [address] | | | | | | [phone] | | | +--------+ + + + [...] + + documented as of this encounter Progress Notes Carmelita Mckeon MD - 01/17/2014 12:37 PM PDT Quick Note: Please let the patient know their blood sugars are well controlled on the lab result. documented in this encounter Plan of Treatment +--------+---------+ + + + | Date | Type | Specialty | Care Team | Description | +--------+---------+ + + + | 01/21/ | Office | Urology | Kiko Garrido, | | | 2020 | Visit | | MD Jorge A HENRIQUEZ | | | | | | [place] | | | | | | [address] | | | | | | | | +--------+---------+ + + + documented as of this encounter Procedures + +--------+ + + + | Procedure Name | Priori | Date/Time | Associated Diagnosis | Comments | | | ty | | | | + +--------+ + + + | HEMOGLOBIN A1C | Routin | 01/12/2014 | DM type 2 | Results for this | | | e | 12:03 PM | (diabetes mellitus, | procedure are in the | | | | PDT | type 2) ([facility]) | results section. | + +--------+ + + + documented in this encounter Results Hemoglobin A1C (01/12/2014 12:03 PM PDT) + +-------+ + + + | Component | Value | Ref Range | Performed | Pathologist | | | | | At | Signature | + +-------+ + + + | Hemoglobin | 5.7 | 4.3 - 5.8 % | [facility] | | | A1c | | | [facility] | | | | | | [facility] | | | | | [facility] - | | | | | | LABORATORY | | + +-------+ + + + | Estimated | 117 | mg/dL | [facility] | | | Average | | | [facility] | | | Glucose | | | MEDICAL | | | | | | CENTER - | | | | | | LABORATORY | | + +-------+ + + + + + | Specimen | + + | Blood | + + + + + + + | Performing | Address | City/State/Zipcode | Phone Number | | Organization | | | | + + + + + | [facility] | [address] | [place] | [phone] | | [facility] | | [address] | | | - LABORATORY | | | | + + + + + | [facility] | [address] | [place] | | | [facility] | | [id number] | | | - LABORATORY | | | | + + + + + documented in this encounter Visit Diagnoses + + | Diagnosis | + + | DM type 2 (diabetes mellitus, type 2) (HCC) Type II or unspecified type diabetes | | mellitus without mention of complication, not stated as uncontrolled | + + documented in this encounter"
--- OUTSIDE RECORDS SUMMARY | ~2020-01-23 | XMS | Encounter Summary ---
Demographics + + + | Address | [address] | | | [place] [address] | + + + | Home Phone | | + + + | Preferred Language | Unknown | + + + | Marital Status | | + + + | Restoration Affiliation | 1013 | + + + | Race | Unknown | + + + | Ethnic Group | Unknown | + + + Author + + + | Author | [facility] | | | and [place] | + + + | Organization | [facility] | | | [...] | | | | | [place] [address] | | + + + + + | Melissa Daley | ECON | [address] | | | | | [place] [address] | | + + + + + Care Team Providers + +------+ + | Care Roving Hand Name | Role | Phone | + [...] | Carlieenstein, | Medication Refill | | 2012 | | PULMONARY [address] | Carmelita Penny MD | | | | | [place], | | | | | | [place] [address] | | | | | | [phone] | | | +--------+--------+ + + + [...] | | | | | [place] | | | | | | [id number] | | | | | | | [...]
--- OUTSIDE RECORDS SUMMARY | ~2020-01-23 | XMS | Encounter Summary ---
Demographics + + + | Address | [address] | | | [place] [address] | + + + | Home Phone | | + + + | Preferred Language | Unknown | + + + | Marital Status | | + + + | Shinto Affiliation | 1013 | + + + | Race | Unknown | + + + | Ethnic Group | Unknown | + + + Author + + + | Author | [facility] | | | and [place] | + + + | Organization | [facility] | | | [...] | | | | | [place] [address] | | + + + + + | Melissa Daley | ECON | [address] | | | | | [place] [address] | | + + + + + Care Team Providers + +------+ + | Care Rn Lvn Name | Role | Phone | + +------+ + | Bunny Corcoran | PCP | | | MD | | | + +------+ + Encounter Details +--------+---------+ + + + | Date | Type | Department | Care Team | Description | +--------+---------+ + + + | 01/10/ | Office | [facility] | Kiko Garrido, | Left ureteral | | 2019 | Visit | [address] | MD [address] | calculus (Primary | | | | [place], [place] | [place], [place] | Dx); Renal calculus, | | | | [address] | [address] | right | | | | [phone] | | | +--------+---------+ + + + [...] + + + | Blood Pressure | 132/82 | 01/11/2020 9:55 AM | | | | | PDT | | + + + + + | Pulse | 64 | 01/11/2020 9:55 AM | | | | | PDT | | + + + + + | Temperature | - | - | | + + + + + | Respiratory Rate | 18 | 01/11/2020 9:55 AM | | | | | PDT | | + + + + + | Oxygen Saturation | - | - | | + + + + + | Inhaled Oxygen | - | - | | | Concentration | | | | + + + + + | Weight | 108.7 kg (239 lb | 01/11/2020 9:55 AM | | | | 10.2 oz) | PDT | | + + + + + | Height | 177.8 cm (5' 10") | 01/11/2020 9:55 AM | | | | | PDT | | + + + + + | Body Mass Index | 34.38 | 01/11/2020 9:55 AM | | | | | PDT | | + + + + + documented in this encounter Patient Instructions Patient Instructions Kiko Garrido MD - 01/11/2020 10:30 AM PDT Preventing Kidney Stones If you ve had a kidney stone, you may worry that you ll have another. Removing or passi ng your stone doesn t prevent future stones. But with your healthcare provider s help, y ou can reduce your risk of forming new stones. Follow up with your healthcare provider to he lp find new stones. You may need follow-up every 3 months to a year for a lifetime. Drink lots of water Staying well-hydrated is the best way to reduce your risk of future stones. Drink 812-oun ce glasses of water daily. Have 2 with each meal and 2 between meals. Try keeping a pitcher of water nearby during the day and at night. Take medicines if needed Medicines, including vitamins and minerals, may be prescribed for certain types of stones. You may want to write your doses and medicine times on a calendar. Some medicines decrease s tone-forming chemicals in your blood. Others help prevent those chemicals from crystallizing in urine. Still others help keep a normal acid balance in your urine. Follow your prescribed diet Yourhealthcare providerwill tell you which foods contain the chemicals you should avoid . Yourhealthcare providermay also suggest talking to a dietitian. He or she can help you plan meals you ll enjoy. These meals won t put you at risk for future stones. You may b e told to limit certain foods, depending on which type of stones you ve had. You should li dominic the amount of salt in your food to about 2 grams a day. This will help prevent most type s of kidney stones.Make sure you get an adequate amount of calcium in your diet. For calcium oxalate stones:Limit animal protein, such as meat, eggs, and fish.Limit gra pefruit juice and alcohol.Limit high-oxalate foods (such as cola, tea, chocolate, spinach, rhubarb, wheat bran, and peanuts). For uric acid stones: Limit high-purine foods, such as mushrooms, peas, beans, anchovies, m eat, poultry, shellfish, and organ meats. These foods increase uric acid production. For cystine stones: Limit high-methionine foods (fish is the most common,but eggs and ryan ts, also).These foods increase production of cystine. Thumb Reading last reviewed this educational content on 07/23/201619994116-1506 The [employer]. [address] [place] [address], [place] [address]. All righ ts reserved. This information is not intended as a substitute for professional medical care. Always follow your healthcare professional's instructions. documented in this encounter Progress Notes Kiko Garrido MD - 01/11/2020 10:30 AM PDTFormatting of this note might be different fro m the original. [place] Daley is a 84 y.o. male referred by Bunny Corcoran MD RELEVANT HISTORY GATHERED FROM PRIOR OFFICE VISITS: Ron was transferred from [facility] on 12/15/2019 with an obstructing 11 mm p roximal left ureteral calculus. He underwent emergent left ureteral stent placement on 12/14. He was also found at that time to have acute kidney injury. Today, 01/11/2020, Ron presents for follow-up of left ureteral calculus. Ron underwent left ureteroscopy with laser lithotripsy of an 11 mm left ureteral calculus on 01/04/2020. Postoperatively, in recovery room, he was noted to have atrial fibrillation. Ron reports that he has done very well since his surgical procedure. He does note mild i rritation from his stent, but this seems to be slowly improving. His dysuria and hematuria have resolved. He still has urinary urgency and frequency, and s ometimes he notices back discomfort when voiding. He denies any renal colic. He denies any fever or chills or nausea vomiting. He denies any palpitations. He denies any angina. He denies any dizziness or lightheadedn ess. He reports his bowels are moving normally. He denies any hematochezia or melena. He reports prior history of kidney stones evaluated by Dr. Verdugo in the past. Multiple te sts were reportedly performed, with no underlying cause of his stone disease determined. He does not smoke. He is accompanied to the office today by his son-in-law Qasim. I spent in excess of 25 minutes with Ron today, over 50% of this time spent in counseling regarding his right renal calculus and dietary kidney stone prevention strategies, and alfonso tment options for his right renal stone, and discussion regarding his new onset atrial fibri llation. He states that he has a follow-up appointment with his primary care provider regarding his atrial fibrillation tomorrow. 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) Carpal tunnel syndrome Cataract Colon polyps Cough Diabetes mellitus type II, non insulin dependent 04/01/2013 Diverticulosis Dyslipidemia Gastro-esophageal reflux disease with esophagitis GERD (gastroesophageal reflux disease) 05/31/2012 Gout HTN (hypertension) Hyperlipidemia Hyperlipoproteinemia Hyperlipoproteinemia Type-Ii-a Intermittent claudication (HCC) Nephrolithiasis recurrent, calcium oxalate crystals Osteoarthritis Sinus infection Walking pneumonia Past Surgical History: Procedure Laterality Date ANKLE FUSION Right right, x2 APPENDECTOMY age 8 BACK SURGERY x3 including 2 laminectomies and one fusion CARPAL TUNNEL RELEASE Right 2016 CHOLECYSTECTOMY 1985 COLONOSCOPY CYSTOSCOPY INSERTION/REMOVAL STENT/STONE Left 12/15/2019 Procedure: CYSTOSCOPY, PLACEMENT LEFT URETERAL STENT; Surgeon: Kiko Garrido MD; Locat ion: [facility] Kidney Stones Removed KNEE JOINT REPLACEMENT Left 1991 SHOULDER SURGERY x2 TONSILLECTOMY TOTAL KNEE ARTHROPLASTY Right 1996 URETEROSCOPY Left 01/04/2020 Procedure: CYSTOSCOPY LEFT URETEROSCOPY W/ LASER LITHOTRIPSY, LEFT URETERAL STENT REPLACEM ENT; Surgeon: Kiko Garrido MD; Location: [facility] MAIN OR Outpatient Encounter Medications as of 01/11/2020 Medication Sig Dispense Refill albuterol (VENTOLIN HFA) 90 mcg/puff inhaler Ventolin HFA 90 mcg/actuation aerosol inha ler current allopurinol (ZYLOPRIM) 100 mg tablet Take 100 mg by mouth Daily. amLODIPine (NORVASC) 5 mg tablet Take 2.5 mg by mouth Daily. aspirin 325 mg tablet Take 325 mg by mouth Daily. atenolol (TENORMIN) 50 mg tablet Take 1 tablet by mouth 2 times daily. 0 atorvaSTATin (LIPITOR) 20 mg tablet take 1 tablet by mouth once daily atorvaSTATin (LIPITOR) 40 mg tablet Take 20 mg by mouth nightly. 0 ciprofloxacin (CILOXAN) 0.3% ophthalmic solution ciprofloxacin 0.3 % eye drops diclofenac (VOLTAREN) 0.1 % ophthalmic solution diclofenac 0.1 % eye drops doxazosin (CARDURA) 8 MG tablet take 1/2 tablet by mouth twice a day 0 ibuprofen (ADVIL,MOTRIN) 600 MG tablet ibuprofen 600 mg tablet not taking lisinopril (PRINIVIL, ZESTRIL) 10 mg tablet Daily. pantoprazole (PROTONIX) 40 mg tablet Take 40 mg by mouth Daily. 0 tamsulosin (FLOMAX) 0.4 mg CAPS take 1 capsule by mouth at bedtime timolol maleate (TIMOPTIC) 0.5% ophthalmic solution valsartan (DIOVAN) 160 mg tablet No facility-administered encounter medications on file as of 01/11/2020. Allergies Allergen Reactions Demerol [Meperidine] Iodine IV Iodine Morphine Family History Problem Relation Age of Onset Heart attack Father Kidney disease Sister Other (see comment) Sister hemodialysis Hypertension Sister Diabetes Sister Social History Socioeconomic History Marital status: Spouse name: Not on file Number of children: Not on file Years of education: Not on file Highest education level: Not on file Tobacco Use Smoking status: Never Smoker Smokeless tobacco: Never Used Substance and Sexual Activity Alcohol use: No Drug use: No PHYSICAL EXAM Vitals: BP 132/82 | Pulse 64 | Resp 18 | Ht 1.778 m (5' 10") | Wt 108.7 kg (239 lb 10.2 oz) | BMI 34.38 kg/m General: Awake, alert, in no acute distress. Speech is fluent. Elderly in appearance. Neck: Supple; no lymphadenopathy. HENT: Atraumatic, external ears normal, nose normal, oropharynx moist, no pharyngeal exudat es. Lungs: Normal respiratory effort, no wheezing, no stridor, no tachypnea. Clear to auscult ation bilaterally. Heart: Normal rate, irregular rhythm, no murmurs, no gallops, no rubs. Chest: No rib or bony tenderness. Back: No CVA tenderness. Abdomen: Soft, nontender, nondistended, no hepatosplenomegaly. No masses. No guarding; be nign. Bladder nondistended. No flank tenderness. Extremities: 1+ ankle edema bilaterally. Hips and long bones nontender to fist percussion. Neuro: Awake, alert, oriented x3. Hard of hearing. Abnormal station and gait. He uses a 4 wheeled walker for assistance in ambulation. Gait is shuffling. Psychiatric: Mood and affect are normal. Normal judgment. Skin: Warm and dry, no erythematous rash. Genitalia: No lesion. Normal in appearance. A suture tether is exiting the urethral meatu s. Procedure: Stent removal. I removed Ron's ureteral stent intact by placing gentle traction on the suture tether att ached to the stent. This was shown to the patient and then discarded. DIAGNOSTIC DATA: Lab Results Component Value Date CREA 0.96 12/26/2019 BUN 16 12/26/2019 NA 140 12/26/2019 K 3.4 12/26/2019 CL 104 12/26/2019 CO2 28 12/26/2019 Lab Results Component Value Date CREA 0.96 12/26/2019 EGFR >60 04/30/2014 Lab Results Component Value Date CALCIUM 9.0 12/26/2019 Lab Results Component Value Date URICACID 5.8 12/16/2019 Lab Results Component Value Date WBC 7.0 12/26/2019 HGB 15.3 12/26/2019 HCT 45.8 12/26/2019 MCV 98.3 12/26/2019 LABPLAT 175 04/30/2014 PLT 246 12/26/2019 Lab Results Component Value Date COLORUA Yellow 12/26/2019 CLARITYUA Clear 12/26/2019 PHUR 5.0 12/26/2019 SPECIFICGRAV 1.015 12/26/2019 PROTUA 100 mg/dL (A) 12/26/2019 BLOODU Negative 12/26/2019 GLUCOSEU Negative 12/26/2019 KETONES Negative 12/26/2019 BILIRUBINUA Negative 12/26/2019 NITRITEUA Negative 12/26/2019 LEUKOESTUA Trace (A) 12/26/2019 UROBILIUA Negative 12/26/2019 WBCUA 10-15 (A) 12/26/2019 RBCUA 10-15 (A) 12/26/2019 SQUAMEPIUA 2-5 (A) 12/26/2019 BACTERIAUA Negative 12/26/2019 He is unable to provide me with a urine sample today. XR Abdomen AP Narrative: XR ABDOMEN 1 VW 01/11/2020 9:19 AM HISTORY: Left ureteral calculus, status pos laser lithotripsy 01/04/2020. COMPARISON: 01/04/2020 FINDINGS: There is a nonobstructive bowel gas pattern. Left nephroureteral stent is present. 4 mm radiodensity projects over the right renal midpole suspicious for a calculus. No evidence of organomegaly. Severe degenerative changes of the thoracic and lumbar spine. Exostosis versus heterotopic ossification, versus enthesopathy is seen at the expected left anterior superior iliac spine. Sacroiliac joint degenerative changes are present. Bilateral hip degenerative changes. Impression: Left nephroureteral stent is present. 4 mm radiodensity projects over the right renal midpole suspicious for a calculus. Electronically signed by Perico Henry MD 01/11/2020 9:29 AM (Images personally reviewed with the patient today) Stone analysis pending. EKG 01/05/2020: Component Value Ref Range & Units Status VENTRICULAR RATE EKG 86 BPM QRS DURATION 94 ms Q-T INTERVAL 366 ms Q-T INTERVAL (CORRECTED) 437 ms QRS AXIS 19 degrees T AXIS -175 degrees INTERPRETATION TEXT Atrial fibrillation Diffuse Nonspecific ST and T wave abnormality Abnormal ECG When compared with ECG of 15-DEC-2019 17:16, Atrial fibrillation has replaced Sinus rhythm Nonspecific ST and T wave abnormality now evident in Anterior leads Confirmed by MICHEL TERAN, LILLIAN ([id number]) on 01/05/2020 IMPRESSION: 1. 11 mm left mid ureteral calculus. Resolved status post left ureteroscopy with laser li thotripsy 01/04/2020. His left ureter appears to be stone free at this time. 2. 4 mm right upper pole renal calculus. Asymptomatic. 3. Recurrent nephrolithiasis. Prior metabolic evaluation with Dr. Verdugo was reportedly n egative. 4. Atrial fibrillation. 5. Acute kidney injury. Secondary to obstructing stone. His GFR has normalized to >60 wi th relief of his obstruction. PLAN: Ron's ureteral stent was removed intact today without difficulty. I reviewed with Ron his laboratory findings and his imaging studies. His left ureter now appears to be stone free, but he still has a persistent stone in his ri t kidney upper pole. It is small enough to pass. We discussed treating his right renal s tone surgically, but since it is small enough to pass he elects continued observation. I told Ron that he has a 50% chance of forming another stone within the next 5 years. Elements of kidney stone prevention diet are reinforced. He will see Dr. Ardon tomorrow regarding his new onset atrial fibrillation. Ron will follow-up in 12 months with a KUB and basic metabolic panel and urinalysis. He will follow-up sooner if any difficulty should arise in interim. I asked him to notify me i mmediately if he should experience any difficulty with voiding or back or flank or abdominal pain, or for any questions or concerns. Ron will continue his regular and customary care and followup with his primary care provi kanu. I asked Ron to notify me immediately if he should experience any difficulties with voidin g or if he has any questions or concerns or any problems whatsoever. This document was generated in part using [employer]. Sometimes wrong word or sound-alike subs titutions may have occurred due to the inherent limitations of the software. Although I hav e attempted to edit the content, I have not thoroughly proofread this note, and transcriptio n errors may occur. I have attempted to recap our discussion, but this document does not co mpletely summarize all of our discussion. CC: Bunny Corcoran MD documented in this en counter Plan of [...] | + + | Left ureteral calculus - Primary Calculus of ureter | + + | Renal calculus, right Calculus of kidney | + + documented in this encounter
--- OUTSIDE RECORDS SUMMARY | ~2020-01-23 | XMS | Encounter Summary ---
Demographics + + + | Address | [address] | | | [place] [address] | + + + | Home Phone | | + + + | Preferred Language | Unknown | + + + | Marital Status | | + + + | Rastafari Affiliation | 1013 | + + + | Race | Unknown | + + + | Ethnic Group | Unknown | + + + Author + + + | Author | [facility] | | | and [place] | + + + | Organization | [facility] | | | [...] | | | | | [place] [address] | | + + + + + | Melissa Daley | ECON | [address] | | | | | [place] [address] | | + + + + + Care Team Providers + +------+ + | Care Health Education Coordinator Name | Role | Phone | + +------+ + | Bunny Corcoran | PCP | | | MD | | | + +------+ + Encounter Details +--------+ + + + + | Date | Type | Department | Care Team | Description | +--------+ + + + + | 01/05/ | Orders Only | [facility] | Renae Rayo, | | | 2019 | | [address] | CORPORATE DEVELOPMENT OFFICER | | | | | [place] | | | | | | [address] | | | | | | [phone] | | | +--------+ + + + [...] | 2020 | Visit | | MD JorgeA HENRIQUEZ | | | | | | [place] | | | | | | [id number] | | | | | | | | +--------+---------+ + + + documented as of this encounter Visit Diagnoses Not on filedocumented in this encounter"
--- OUTSIDE RECORDS SUMMARY | ~2020-01-23 | XMS | Encounter Summary ---
Demographics + + + | Address | [address] | | | [place] [address] | + + + | Home Phone | | + + + | Preferred Language | Unknown | + + + | Marital Status | | + + + | Worship Affiliation | 1013 | + + + | Race | Unknown | + + + | Ethnic Group | Unknown | + + + Author + + + | Author | [facility] | | | and [place] | + + + | Organization | [facility] | | | [...] | | | | | [place] [address] | | + + + + + | Melissa Daley | ECON | [address] | | | | | [place] [address] | | + + + + + Care Team Providers + +------+ + | Care Woven Blind Loom Tender Name | Role | Phone | + +------+ + | Bunny Corcoran | PCP | | | MD | | | + +------+ + Reason for Visit + + + | Reason | Comments | + + + | Pre-op Exam | covid test only | + + + Encounter Details +--------+ + + + + | Date | Type | Department | Care Team | Description | +--------+ + + + + | 12/30/ | Clinical | [facility] | Gunningham, | Left ureteral | | 2020 | Support | [facility]ARE [address] | Alex Elmore MD | calculus; | | | | [place] | [address] | Pre-operative | | | | [address] | [place] | clearance | | | | [phone] | [phone] | | | | | | | | +--------+ + + [...] + + + + | Pulse | 63 | 12/31/2019 7:57 AM | | | | | PDT | | + + + + + | Temperature | 37.2 C (98.9 F) | 12/31/2019 7:57 AM | | | | | PDT | | + + + + + | Respiratory Rate | - | - | | + + + + + | Oxygen Saturation | 97% | 12/31/2019 7:57 AM | | | | | PDT [...] + documented in this encounter Progress Notes Jai Agosto RN - 12/31/2019 7:55 AM PDTPRE-PROCEDURE COVID TEST Affix Patient Label [] Photo ID Verified Patient Name:Ron Daley Provider:CRISTOBAL GRANADOS URGENT NURSE :1935 Date:12/31/19 MyChart: Inactivated Symptom Screen: Are you experiencing any of the following symptoms? [] Cough: duration of cough? ___ days ? If symptoms or cough >10 days, send to for provider evaluation [] Shortness of breath ? Confer with provider or send in to if obviously having labored breathing [] Fever >100.4 [] Chills and/or repeated shaking with chills [] Sore Throat [] Body Aches or Muscle Pain [] Headache [] Chest Pain, warm hand transfer to RN inside (Room 1 for triage) [] Abdominal Pain [] Nausea [] Vomiting [] Diarrhea [] Change in Sense of Smell and/or Taste Testing Protocol: MA/RN Proceed to testing if ANY of the following conditions are present: DRIVE THRU SWAB SCREENING [x] Asymptomatic, regardless of age, pre-procedure screening only [] Asymptomatic - testing requested by authorized [facility] personnel, [facility] Infection Prevention Nurse or Caregiver Health [] Asymptomatic, regardless of age, pre-travel screening only [] Age 15-70 with any symptoms indicated in MA screening [] Age >70 with Temp <100.4 F, O2 sat >95%, Pulse <100 bpm, without cough, Hx of fever, ch ills, chest pain, SOB, abdominal pain, vomiting or diarrhea. If only symptom is sore throat, body aches, headache and change in taste or smell ok for drive thru testing. PROVIDER EVALUATION REQUIRED [] Patient Requested [] Temp >102 F [] O2 Sat ? 95% [] Pulse > 100 [] Symptomatic with any listed comorbidities [] Dominant sore throat with little or no cough (strep rule out) [] Age <15 years old with symptoms Discharge: [x] Social Distancing/Quarantine Guidelines documented in this encounter Plan of Treatment +--------+---------+ + + + | Date | Type | Specialty | Care Team | Description | +--------+---------+ + + + | 01/21/ | Office | Urology | Kiko Garrido, | | | 2020 | Visit | | MD Jorge A HENRIQUEZ | | | | | | [place] | | | | | | [address] | | | | | | | | +--------+---------+ + + + documented as of this encounter Procedures + +--------+ + + + | Procedure Name | Priori | Date/Time | Associated Diagnosis | Comments | | | ty | | | | + +--------+ + + + | CORONAVIRUS | Routin | 12/31/2019 | Left ureteral | Results for this | | (COVID-19) NAAT | e | 7:55 AM | calculus | procedure are in the | | | | PDT | Pre-operative | results section. | | | | | clearance | | + +--------+ + + + documented in this encounter Results Coronavirus (COVID-19) NAAT (12/31/2019 7:55 AM PDT) + + + + + + | Component | Value | Ref Range | Performed | Pathologist | | | | | At | Signature | + + + + + + | SARS-CoV-2, | Not DetectedComment: | Not Detected | REFERENCE | | | NAAT | Testing was performed | | LAB [facility] | | | (COVID-19) | using the darya(R) | | [facility] | | | | SARS-CoV-2 test.This | | | | | | test was developed and | | | | | | its performance | | | | | | characteristics | | | | | | determinedby [facility] | | | | | | Laboratories. This test | | | | | | has not been FDA cleared | | | | | | orapproved. This test | | | | | | has been authorized by | | | | | | FDA under an Emergency | | | | | | UseAuthorization (EUA). | | | | | | This test is only | | | | | | authorized for the | | | | | | duration oftime the | | | | | | declaration that | | | | | | circumstances exist | | | | | | justifying | | | | | | theauthorization of the | | | | | | emergency use of in | | | | | | vitro diagnostic tests | | | | | | fordetection of | | | | | | SARS-CoV-2 virus and/or | | | | | | diagnosis of COVID-19 | | | | | | infectionunder section | | | | | | 564(b)(1) of the Act, 21 | | | | | | U.S.C. 360bbb-3(b)(1), | | | | | | unlessthe authorization | | | | | | is terminated or revoked | | | | | | sooner.When diagnostic | | | | | | testing is negative, the | | | | | | possibility of a | | | | | | falsenegative result | | | | | | should be considered in | | | | | | the context of a | | | | | | patient'srecent | | | | | | exposures and the | | | | | | presence of clinical | | | | | | signs and | | | | | | symptomsconsistent with | | | | | | COVID-19. An individual | | | | | | without symptoms of | | | | | | COVID-19and who is not | | | | | | shedding SARS-CoV-2 | | | | | | virus would expect to | | | | | | have anegative (not | | | | | | detected) result in this | | | | | | assay. | | | | + + + + + + + + | Specimen | + + | Tissue - Specimen | | from throat | | (specimen) | + + + + + | Narrative | Performed At | + + + | Performed at: 01 - [facility] [address] [place], [place] | REFERENCE LAB | | [id number] Construction Executive: Dat Lan MD, Phone: [phone] | [facility] | + + + + + + + + | Performing | Address | City/State/Zipcode | Phone Number | | Organization | | | | + + + + + | REFERENCE LAB | [address] | [place], [place] | [phone] | | [facility] | [place] | [phone] | | + + + + + documented in this encounter Visit Diagnoses + + | Diagnosis | + + | Left ureteral calculus Calculus of ureter | + + | Pre-operative clearance Preoperative examination, unspecified | + + documented in this encounter"
--- OUTSIDE RECORDS SUMMARY | ~2020-01-23 | XMS | Encounter Summary ---
Demographics + + + | Address | [address] | | | [place] [address] | + + + | Home Phone | | + + + | Preferred Language | Unknown | + + + | Marital Status | | + + + | Confucianist Affiliation | 1013 | + + + [...] | | | | | [place] [address] | | + + + + + | Melissa Daley | ECON | [address] | | | | | [place] [address] | | + + + + + Care Team Providers + +------+ + | Care Vehicle Body Sander Name | Role | Phone | + +------+ + | Jona Deal MD | PCP | | + +------+ + Encounter Details +--------+ + + + + | Date | Type | Department | Care Team | Description | +--------+ + + + + | 07/14/ | Orders Only | [facility] | Offenstein, | Hypoxemia (Primary | | 2012 | | PULMONARY [address] | Carmelita Penny MD | Dx) | | | | [place], | | | | | | [place] [address] | | | | | | [phone] | | | +--------+ + + + [...] | 08/02/ | Office | Urology | Kiko Garrido, | | | 2020 | Visit | | MD Jorge A HENRIQUEZ | | | | | | [place] | | | | | | [address] | | | | | | | | +--------+---------+ + + + + + +--------+ + + | Name | Type | Priori | Associated Diagnoses | Order Schedule | | | | ty | | | + + +--------+ + + | Pulse oximetry, | Respiratory | Routin | Hypoxemia | 1 Occurrences | | overnight study | Care | e | | starting 07/14/2012 | | | | | | until 07/14/2013 | + + +--------+ + + documented as of this encounter Visit Diagnoses + + | Diagnosis | + + | Hypoxemia - Primary | + + documented in this encounter"
--- OUTSIDE RECORDS SUMMARY | ~2020-01-23 | XMS | Encounter Summary ---
Demographics + + + | Address | [address] | | | [place] [address] | + + + | Home Phone | | + + + | Preferred Language | Unknown | + + + | Marital Status | | + + + | Shinto Affiliation | 1013 | + + + | Race | Unknown | + + + | Ethnic Group | Unknown | + + + Author + + + | Author | [facility] | | | and [place] | + + + | Organization | [facility] | | | [...] | | | | | [place] [address] | | + + + + + | Melissa Daley | ECON | [address] | | | | | [place] [address] | | + + + + + Care Team Providers + +------+ + | Care Production Gear Cutter Name | Role | Phone | + [...] | obliterans with | | | | [place], | | organizing | | | | [place] [address] | | pneumonia) (HCC) | | | | [phone] | | | +--------+ + + + [...] [place] | | | | | | [address] | | | | | | | | +--------+---------+ + + + documented as of this encounter Visit Diagnoses + + | Diagnosis | + + | 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
--- OUTSIDE RECORDS SUMMARY | ~2020-01-23 | XMS | Encounter Summary ---
Demographics + + + | Address | [address] | | | [place] [address] | + + + | Home Phone | | + + + | Preferred Language | Unknown | + + + | Marital Status | | + + + | Alevism Affiliation | 1013 | + + + | Race | Unknown | + + + | Ethnic Group | Unknown | + + + Author + + + | Author | [facility] | | | and [place] | + + + | Organization | [facility] | | [...] | | | | | [place] [address] | | + + + + + | Melissa Daley | ECON | [address] | | | | | [place] [address] | | + + + + + Care Team Providers + +------+ + | Care Extension Forester Name | Role | Phone | + [...] BRUNO [place], | | | | | ([facility]) | [place], | [place] [address] | | | | | Procedures | [place] | Phone: | | | | | [place] OFFICE | [address] | [phone] | | | | | OUTPATIENT | Phone: | Fax: | | | | | NEW 45 | [phone] | [phone] | | | | | MINUTES IT PROGRAMMER ANALYST | Fax: | | | | | | | [phone] | | +--------+--------+ + + + + Encounter Details +--------+---------+ + + + | Date | Type | Department | Care Team | Description | +--------+---------+ + + + | 06/08/ | Office | [facility] | Alex Nam | 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 ( daughter is Katie Yusfu). Physician notes: Patient arrives to consult on [...] Orthopedic surgeon was Dr. Nahun vang in [place], [place]. Reports he did his total knees. [...] and numbness in his toes. CARDIAC: Denies [place], chest pain or tightness. RISK: Never smoker, Denies diabetes. Father had [place] SANDRA Score: 5 SANDRA Risk Score 06/08/2017 Risk for Obstructive Sleep Apnea Suspected Risk for SANDRA RECENT TEST RESULTS and IMAGING: Miguel ME material specialist. RIGHT: 1.12 LEFT 1.19 NOTES: Bilateral [...] intact, face symmetric, tongue protrudes midline Equal die maintenance technician and plantar flexion, no pronator drift, Gait [...]
--- OUTSIDE RECORDS SUMMARY | ~2020-01-23 | XMS | Encounter Summary ---
Demographics + + + | Address | [address] | | | [place] [address] | + + + | Home Phone | | + + + | Preferred Language | Unknown | + + + | Marital Status | | + + + | Jainism Affiliation | 1013 | + + + | Race | Unknown | + + + | Ethnic Group | Unknown | + + + Author + + + | Author | [facility] | | | and [place] | + + + | Organization | [facility] | | [...] | | | | | [place] [address] | | + + + + + | Melissa Daley | ECON | [address] | | | | | [place] [address] | | + + + + + Care Team Providers + +------+ + | Care Waiter/Waitress Captain Name | Role | Phone | + +------+ + PCP | Unavailable | + +------+ + Encounter Details +--------+ + + + + | Date | Type | Department | Care Team | Description | +--------+ + + + + | 09/19/ | Hospital | [facility] | Rakesh Ruiz MD | | | 2005 | Encounter | MED CTR GENERIC OP | [address], [place] | | | | | CONV DEPT [address] | [address] [place], [place] | | | | | [place], | [address] | | | | | [place] [address] | | | | | | [phone] | | | +--------+ + + + [...] [place] | | | | | | [address] | | | | | | | | +--------+---------+ + + + documented as of this encounter Visit Diagnoses Not on filedocumented in this encounter"
--- OUTSIDE RECORDS SUMMARY | ~2020-01-23 | XMS | Encounter Summary ---
Demographics + + + | Address | [address] | | | [place] [address] | + + + | Home Phone | | + + + | Preferred Language | Unknown | + + + | Marital Status | | + + + | Jain Affiliation | [id number] | + + + | Race | Unknown | + + + | Ethnic Group | Unknown | + + + Author + + + | Author | [facility] | | | and [place] | + + + | Organization | [facility] | | | [...] | | | | | [place] [address] | | + + + + + | Melissa Sheldon | ECON | [address] | | | | | [place] [address] | | + + + + + Care Team Providers + +------+ + | Care Undercoat Sprayer Name | Role | Phone | + +------+ + | Unknown, Doctor | PCP | | + +------+ + Encounter Details +--------+ + + + + | Date | Type | Department | Care Team | Description | +--------+ + + + + | 05/17/ | Hospital | [facility] | Felice Ford, | | | 2011 - | Encounter | [facility] | [address] | | | | | [address] [place] | [place], [place] | | | 05/24/ | | [place] [address] | [id number] | | | 2011 | | [phone] | [phone] | | | | | | | | | | | | Mali Foreman MD | | | | | | [address] | | | | | | [place], [place] | | | | | | [id number] | | | | | | | [...] + + documented as of this encounter Discharge Summaries Mali Foreman MD - 05/24/2012 10:32 [place] [address] Patient Name: RON SHELDON V Provider: Felice Ford MD Unit #: [id number] Location: [address] [place] [address] #: [id number] : 1935 ADMISSION DATE: 05/17/2012 DISCHARGE DATE: 05/24/2012 DISCHARGE CONDITION: Good. DISCHARGE DIAGNOSES 1. ACUTE RESPIRATORY FAILURE. 2. BRONCHIOLITIS OBLITERANS-ORGANIZING PNEUMONIA. 3. RESPIRATORY CULTURE POSITIVE FOR JONN AND SENSITIVE STAPHYLOCOCCUS. 4. HYPERTENSION. 5. DYSLIPIDEMIA. 6. OSTEOARTHRITIS. 7. HISTORY OF COLON POLYPS. 8. GASTROESOPHAGEAL REFLUX DISEASE. 9. RENAL CALCULI. 10. STATUS POST APPENDECTOMY. 11. CHOLECYSTECTOMY. 12. RIGHT ANKLE FUSION. 13. RIGHT SHOULDER SURGERY. 14. THREE BACK SURGERIES. 15. BILATERAL KNEE REPLACEMENT. HOSPITAL COURSE: The patient was admitted on transfer from [facility] in [place], [place] , after being admitted 05/13/2012. He required up to 10 liters of oxygen and h ad a significant cough. As there was no pulmonary consultation available, he was transferre d to [facility]. The patient was started on IV methylprednisolone 8 0 mg t.i.d., but due to hyperglycemia, this apparently was discontinued. Sputum culture gre w staph feces, which appeared to be sensitive. Additional respiratory culture here at [facility] grew Jonn. The patient was empirically covered with Levaquin, vancomycin was disco ntinued. Fluconazole was added. The patient was restarted on IV Solu -Medrol, when his ches t x-ray did not improve, and the patient continued to require up to 11 liters oxygen by Oxy mizer. He has since that time slowly improved. His oxygen saturations and requirement of mccollum pplemental oxygen have improved steadily. There have been no complications, no further proce dures. His temperature is 36.4, heart rate 72, blood pressure 153/86, respirations 20, room air saturation is 90%. The patient, however, with ambulation, desaturates and needs up to 8 liters of oxygen with ambulation. Also, nocturnal desaturation occur, the patient needs 2 liters of oxygen nocturnally. This will be ordered at the time of discharge. It also is re commended by Dr. Mckeon, his nursing education consultant, that he have a sleep study when his infection has completely resolved. PHYSICAL EXAMINATION LUNGS: Initially, his lungs had expiratory wheezes throughout, and was course to examinati on. At this time, his lungs are now clear. HEART: Regular with normal S1 and S2. ABDOMEN: Protuberant, nontender. EXTREMITIES: Without clubbing, cyanosis or edema. NEUROLOGIC: He is alert and oriented gentleman who is able to ambulate without difficulty. LABORATORY: White blood cell count 8.3, hemoglobin and hematocrit 15 and 44, platelets 179 ,000. Chemistry: Sodium 133, potassium 4.4, chloride 106, CO2 22, BUN 26, creatinine 1.06, glucose 185. DISCHARGE MEDICATIONS: Prescriptions given at discharge will include: 1. Glucophage 50 0 mg 1 p.o. daily, #30. 2. Diflucan 100 mg 1 p.o. daily x3 for a 7-day course. 3. Levaquin 500 mg 1 p.o. daily, #2, to complete 14 days. 4. Prednisone 10 mg tablets 6 p.o. daily, dispense #30 day sup ply. 5. NovoLog FlexPen to be taken with meals for blood sugar 151-200 three units, 201-2 50 five units, 251 -300 seven units, 301-350 nine units, greater than 350 eleven units subc utaneously, #30 day supply. 6. NovoLog FlexPen bedtime blood sugar 151-200 one unit, 201- 250 two units, 251-300 four, 301-350 six units, greater than 350 eight units subcutaneously . The patient may resume his usual home medications, this includes: 1. Atenolol 100 mg p .o. twice daily. 2. Depo testosterone 200 mg IM as directed by his primary physician. 3. Doxazosin 4 mg twice daily. 4. Lipitor 20 mg daily. 5. Norvasc 5 mg daily. 6. Protonix 40 mg daily. 7. Zestril 10 mg daily. 8. Allopurinol 200 mg daily. DISPOSITION: Discharged to home today after home oxygen is arranged, and diabetes educatio n is completed. The patient is being taught to monitor blood sugar and administer insulin. It is thought that his blood sugars may normalize when he is off steroids. Until that time, he will remain on a small dose of metformin, which may be increased, as well as NovoLog sl iding school scale as ordered above. DICTATED BY: Mali Foreman MD Internal Medicine JOB #: [id number] EXT JOB #:[id number] cc: MD Jona Gregorio MD Benjamin Leach, MD <<Signature on File>> Mali Foreman MD 05/24/12 1136 < documented in thi s encounter Medications at Time of Discharge + +-----+ +---------+ + + | Medication | Sig | Dispensed | Refills | Start | End Date | | | | | | Date | | + +-----+ +---------+ + + | BD PEN NEEDLE DONELL | | | 0 | 05/24/20 | | | U/F 32G X 4 MM MISC | | | | 12 | 3 | + +-----+ +---------+ + + documented as of this encounter H&P Notes Felice Ford MD - 05/17/2012 8:00 [place] [address] Patient Name: RON SHELDON V Provider: Felice Ford MD Unit #: [id number] Location: [address] [place] [address] #: [id number] : 1935 DATE: 05/17/2012 CHIEF COMPLAINT: Cough, shortness of breath and hemoptysis. HISTORY OF PRESENT ILLNESS: Mr. Sheldon is a 77-year-old man with a history of hypertensio n, dyslipidemia, and osteoarthritis who presents with cough, shortness of breath and hemopt ysis. Mr. Sheldon has no significant known pulmonary disease. He is a long time posada for at least 60 years and the only major respiratory illness he has had in the past was what anu lindo describes as a "walking pneumonia" in 1972 which caused significant impairment for almost 6 months. At baseline, he states he does not use an albuterol inhaler, is able to walk 2-3 hours a day, is able to walk up flights of stairs without any problems. He states that he felt great up until about a year and a half ago. Since then, he has noticed worsening fatig ue and decreased energy. This seems to have been gradually progressive over this time. He s tates that 3 weeks ago he began to have a significant amount of nasal drainage, cough and h e began to have some hemoptysis. He went to urgent care and had been on cephalexin and doxy cycline for what was assumed to be sinusitis. He gradually grew more short of breath to e point where he was dyspneic on exertion after only about 20 feet. He was admitted to [facility] on 05/13/2012. An xray showed multifocal consolidations. Initially he was placed on ceftriaxone and levofloxacin. He required up to 10 liters of oxygen and had a significa nt cough with some sputum production. He did not improve and for a day apparently between 07/14/2011 and 05/15/2012, he was on methylprednisolone 80 mg IV t.i.d. This did not improve his respiratory status either, and his blood sugars became high so this was stopped appare ntly on 05/15/2012. His ceftriaxone was discontinued on 05/15/2012 and he has been on levof loxacin, Zosyn and vancomycin since that time. Blood and sputum cultures were negative from 05/13. A sputum sample taken on 05/15/2012 is currently growing less than 5 colonies of a n unknown staphylococcal species. He continued to need up to 10 liters of oxygen at [facility] and because a design leader was not available, he was transferred to [place] for further workup. He did have a chest CT scan today which showed diffuse patchy consolidation s of unclear etiology. REVIEW OF SYSTEMS GENERAL: He denies fevers. He states his appetite has been poor, and he lost about 8 pounds in the 10 days before . HEENT: He has had no acute vision changes. He has had, as above, nasal congestion, nasal dr angélica. CARDIAC: He denies chest pain or current palpitations. PULMONARY: As above. GASTROINTESTINAL: No nausea, vomiting, constipation, diarrhea or abdominal pain. GENITOURINARY: No hematuria or dysuria. He states he has been urinating well. MUSCULOSKELETAL: He has some chronic musculoskeletal pain, but nothing new. SKIN: No new rashes or lesions. NEUROLOGIC: No stroke or new focal neurologic deficits. ENDOCRINE: He has had hyperglycemia during his hospitalization which apparently he had not had in the past. HEMATOLOGY: No other bruising or bleeding. PAST MEDICAL HISTORY 1. Hypertension. 2. Dyslipidemia. 3. History of colon polyps and diverticulosis seen on colonoscopy. He is followed by Dr. Fernando isbell. 4. Gastroesophageal reflux disease. 5. Renal calculi requiring surgical removal. 6. He has been on chronic allopurinol for reasons he is not sure, but he states he has neve r had a gout. 7. "Walking pneumonia" in 1972, had full recovery afterwards PAST SURGICAL HISTORY 1. Appendectomy at age 8. 2. Remote History of cholecystectomy. 3. Right ankle fusion. 4. Right shoulder surgery. 5. Three back surgeries including 2 laminectomies. 6. Bilateral total knee replacement. 7. History of tonsillectomy. CURRENT MEDICATIONS 1. Levofloxacin 750 mg IV daily. 2. Zosyn 3.375 grams IV t.i.d. 3. Vancomycin 1.5 grams IV b.i.d. 4. Allopurinol 100 mg p.o. b.i.d. 5. Amlodipine 5 mg p.o. daily. 6. Atenolol 100 mg p.o. b.i.d. 7. Atorvastatin 20 mg p.o. every evening. 8. Heparin 5000 units subcu t.i.d. 9. Pantoprazole 40 mg p.o. daily. 10. Lisinopril 10 mg p.o. daily. 11. Doxazosin 4 mg p.o. b.i.d. Except for the antibiotics he was taking all these medicatio ns at home. 12. He was also taking diclofenac and testosterone at home before his admissio n. ALLERGIES 1. HE IS ALLERGIC TO IV IODINE. 2. THERE IS A MORPHINE AND DEMEROL ALLERGY in the chart, although he does not remember thes e allergies. SOCIAL HISTORY: He [place] outside [place]. He is a semi-retired posada and ran [employer]. 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 He denies any history of ever smoking. Anu lindo has never used alcohol. 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 He does not own birds. FAMILY HISTORY: His mother young of an unknown illness. His father of a myocardia l infarction versus stroke, he is not sure. PHYSICAL EXAMINATION VITAL SIGNS: On arrival, temperature was 36.8, heart rate 79, blood pressure 157/80, respir atory rate was 28. He was saturating 95% on 6 L of oxygen. GENERAL: On exam he is a pleasant, alert man in no acute distress. He appears comfortable a nd is oriented x3. HEENT: Moist mucous membranes. No scleral icterus. CARDIAC: Regular rate and rhythm, no murmurs, rubs or gallops. PULMONARY: He has diffuse fine inspiratory crackles loudest at the apices. He is tachypneic in his 20s , but does not have increased work of breathing. GI: Soft, nontender, nondistended. Bowel sounds are present. EXTREMITIES: Warm and well perfused. LABORATORY DATA: Chem-7 from [facility] this AM shows sodium 135, potassium 4, chloride 103, bicarbonate 26, BUN 18, creatinine 0.9, glucose of 119. CBC this AM showed a white cou nt of 9.1, hematocrit of 41.1, platelets of 355. Legionella urine antigen was negative. Influenza A and B were negative and AFB smear was ne gative. Blood cultures no growth to date since 05/13/2012 and he had 2 sputum cultures actu ally one from 2011 which has only growing heavy growth of normal orbb and one from 05/15/2012 which is growing less than 5 staphylococcal bacteria. On arrival on 05/13/2012 h is BNP was 349, although decreased to the 100 's later in the hospitalization. On arrival, he had a white count 10.8 with 89% neutrophils, 7% lymphocytes, 4% monocytes. He had <1% eo sinophils. An ABG taken on 05/13/2012 showed a pH of 7.42, a pCO2 of 36, a paO2 of 60 on un known oxygen and a bicarbonate of 22.9. Troponin on arrival was 0.03. IMAGING: A CT of the chest on 05/17/2012 showed bilateral patchy alveolar type densities pr esent. According to the official read, there is a somewhat perihilar predominance. There ar e minimal bilateral pleural effusions. There are a few peripheral densities noted. Bronchog nicho are present within these densities. No cavitary lesions are seen. The impression was t hat these pulmonary findings were nonspecific. Possibilities included persistent bacterial infiltrates and viral pneumonitis. Could consider collagen vascular disease. Bronchiolitis obliterans is on the differential consideration. ARDS is less likely. Immunosuppressant inf ection with pneumonitis would be a consideration given the pattern. ASSESSMENT AND PLAN 1. ACUTE RESPIRATORY FAILURE WITH PATCHY BILATERAL CONSOLIDATIONS. Mr. Sheldon's diagnosis remains unclear at this time. He had a workup which included negative Legionella, negative influenza, unremarkable initial sputum culture, negative bacterial culture at [facility]. It does seem to be a subacute presentation and his symptoms began at least 3 w eeks ago and may have begun before then. Among the considerations include a hypersensitivity pneumonitis, given his long history of farming. An interstitial pneumonitis such as UIP or AIP is possible as well. His chest CT s can could be consistent with bronchiolitis obliterans organizing pneumonia. He could have a partially treated bacterial pneumonia or a viral pneumonia, and does believe that his symp toms have been improving over the last few days. Given his new sinusitis and patchy consol idations, will also consider a vasculitis such as Churg Gia or Goodpasture's syndrome naina maldonado was partially treated with the Solu-Medrol given for a short time. For now, will admit him to step-down on scheduled DuoNeb and albuterol as needed. He is cur rently needing 6 liters of oxygen, but seems to be comfortable with no respiratory distress at this time. I discussed with Dr. Mckeon of pulmonary medicine, who will consult in t he morning. Will check a CXR tonight. For now, will continue his vancomycin given the pos sible staph species seen on the culture and levofloxacin as well. Will check an SEMAJ and ANC A in the morning. Will check another rapid flu test and nasal RSV swab. 2. HYPERGLYCEMIA. He does not know of any diabetes and his hemoglobin A1c was actually norm al, but he has had elevated blood sugars in the high 100s to 200s, apparently even before s tarting steroids, likely due to inflammation. Will place him on an insulin sliding scale an d monitor his blood sugars closely. 3. HYPERTENSION. Will continue his amlodipine, atenolol and lisinopril for now and monitor his blood pressure. 4. GASTROESOPHAGEAL REFLUX DISEASE. Continue pantoprazole. 5. He has been on allopurinol chronically for somewhat unclear reasons, but will continue t his for now. 6. DEEP VENOUS THROMBOSIS PROPHYLAXIS. Enoxaparin. 7. CODE STATUS IS FULL. Reviewed and summarized outpatient medical records at length. I spent over 1 hour in admiss ion time. DICTATED BY: Felice Ford MD Hospitalist JOB #: [id number] EXT JOB #:[id number] cc: Carmelita Mckeon MD <<Signature on File>> Dat Jarvis D107/18/11 0123 < documented in thi s encounter Consult Notes Carmelita Mckeon MD - 05/18/2012 3:19 PM PST [place], [place] [address] Patient Name: RON SHELDON V Provider: Felice Ford MD Unit #: [id number] Location: [address] [place], [place] [address] #: [id number] : 1935 DATE: 05/18/2012 CONSULTING PHYSICIAN: Carmelita Mckeon MD REFERRING PHYSICIAN: Felice Ford MD PRIMARY CARE PHYSICIAN: Jona Deal MD REASON FOR CONSULTATION: Abnormal chest CT scan with worsening hypoxemic respiratory failu re. HISTORY OF PRESENT ILLNESS: Mr. Sheldon is a 77-year-old gentleman without any known hist ory of pulmonary disease with a past medical history of hypertension, dyslipidemia, colon p olyps and reflux disease who presented to [facility] in [place], [place] on 05/13/2012, with cough, hemoptysis, and progressive shortness of breath and was a dmitted with a markedly abnormal chest x-ray and hypoxemia. He notes that his symptoms firs t began on 05/01/2012. At that time, he had what he calls a sinus infection. His symptoms a t that time were runny nose, watery eyes and a mild sore throat. He denies having had any f chuy and in fact denies fevers throughout the course of this illness. He denies having had any sick contacts or any unusual travel. He did have a green party back in January where he was i n contact with a number of people to celebrate his long term from farming as well as his anniversary. He notes that at baseline he goes to [employer] every Thursday and at [facility] he is exposed to a large number of people. He otherwise lives at home with his and has no other members in his household. Prior to 05/01/2012 he notes that he has had increa sed fatigue for 6-8 months, but no other unusual symptoms. He had had attributed the incre ased fatigue to general aging. He notes that over time he began to cough up phlegm. Initial ly it was white in color. He went to a care clinic in [place] on Thursday05/03/2012 and wa s treated with Keflex. He believes that after that treatment the nasal dripping did get bet ter. However, he notes that his cough increased and he began to have hemoptysis. This start ed out as having scant red phlegm mixed in with his sputum. He also had increasing shortnes s of breath. At that clinic visit he did have a chest x-ray which was noted to be markedly abnormal. He was treated with doxycycline. I do not have the notes available from that [facility] clinic visit. Three days later on Jack, which is now 05/13/2012, he had continu ed to have worsening shortness of breath, increasing hemoptysis with now fresh blood mixed in with his sputum and was now turning blue with exertion. This prompted him to go to the e mergency room at [facility]. He notes that the color of his sputum was mendoza to yellow in color but difficult to distinguish with all of the blood mixed in. As noted tomas gibbons, he still had no fevers, and he denies any chills or sweats. He was checking his temperat ure regularly at home and notes that it was generally running 98.5 degrees. He does note th at he had lost about 8 pounds over a week, but tells me he had good appetite. He did tell D r. Ford, the admitting physician, that his appetite was poor. Chest x-ray on presentation to [facility] showed multifocal consolidations and ground- glass opacities throughout both lungs, though clustered more predominantly towards the perihilar region of the chest. He was initially placed on ceftriaxone and levofloxacin by the hospitalist on presentation on 05/13/2012. His initial oxygen requirements appear t o have been at about 5 liters. On the following day, he was treated with methylprednisolone 80 mg 3 times a day. This made him hyperglycemic, however, did not improve his respiratory status. Subsequently, this was discontinued. The ceftriaxone was discontinued on 2 and he was started on Zosyn and vancomycin. Between 05/15/2010 and 05/16/2012, his oxygen needs worsened dramatically, having increase d from about 5-6 liters nasal cannula up to 10 liters nasal cannula. He did have blood and sputum cultures sent on presentation to [facility] and his sputum culture is gr owing less than 5 colonies of an unknown staphylococcal species. Final culture is currentl y pending. Blood cultures have been no growth to date. He had a legionella urine antigen se nt which was negative. He had an influenza nasal swab which was also negative. Because of h is worsening hypoxemia despite attempts with treatment with broad-spectrum antibiotics as w ell as steroids, transfer arrangements were made to transfer to [facility]. On the morning as his transfer he did have a chest CT scan which did show patchy consolida tion and ground-glass. He does have underlying bronchiectasis which appears to be mostly mo re central in nature , though does extend both basilarly and apically. The areas of lung t hat you can see that do not appear to be involved by his acute process appear relatively no rmal. The pattern of distribution of the abnormalities that are seen appear to be airway-ce ntric and sparing the periphery. I do not see any underlying fibrosis. I do not see any efraín dence of underlying emphysema. PAST MEDICAL HISTORY 1. Hypertension. As an outpatient he apparently takes doxazosin twice a day, lisinopril, a tenolol, and amlodipine. 2. Hyperlipidemia on atorvastatin as an outpatient. 3. Colonic polyposis seen on colonoscopy. 4. Diverticulosis seen on colonoscopy. 5. Gastroesophageal reflux disease for which he takes pantoprazole and is without symptoms when he has medication compliance. 6. Nephrolithiasis previously requiring surgical removal. 7. Chronic allopurinol use fo r reasons that are unclear with the patient denying previous history of gout. 8. Previous diagnosis of walking pneumonia in 1972. 9. Osteoarthritis. 10. Carpal tunnel syndrome, status post release on left. 11. Cataract. PAST SURGICAL HISTORY 1. Status post appendectomy at age 8. 2. Status post cholecystectomy. 3. Status post right ankle fusion x2. 4. Status post right shoulder surgery. 5. Status post 3 back surgeries including 2 laminectomies and one fusion. 6. Status pos t bilateral total knee replacements with one being complicated by a staph infection requiri ng multiple wash out, followed by prolonged antibiotics through [facility]. 7. Status post tons illectomy. 8. Status post carpal tunnel release on the left. ALLERGIES 1. IV IODINE. 2. CHART ALLERGY OF MORPHINE AND DEMEROL WITHOUT PATIENT RECOLLECTION OF THIS. MEDICATIONS 1. Ondansetron 4 mg IV q.6h. p.r.n. nausea, vomiting. 2. Doxazosin 4 mg p.o. b.i.d. 3. Acetaminophen 650 mg p.o. q.6h. p.r.n. pain or fever. 4. Lisinopril 10 mg p.o. every day. 5. Vancomycin 1500 mg IV q.12h. 6. Enoxaparin 40 mg subcu daily. 7. Allopurinol 100 mg p.o. b.i.d. 8. Albuterol 1 amp inhaled every 4 hours as needed. 9. DuoNeb 1 amp inhaled every 4 hours scheduled. 10. Atenolol 100 mg p.o. b.i.d. 11. D50 as needed for hypoglycemia. 12. Docusate 100 mg p.o. daily. 13. Milk of magnesia 30 mL p.o. every 6 hours as needed for constipation. 14. Polyethyl tracee glycol 1 packet p.o. daily. 15. Amlodipine 5 mg p.o. daily. 16. Glucagon 1 mg IM as needed. 17. Atorvastatin 20 mg p.o. at bedtime. 18. Insulin regular sliding scale. 19. Omeprazole 20 mg p.o. twice daily. 20. Levothyroxine 750 mg IV q.24h. SOCIAL HISTORY: He lives on a [place] outside of [place] with his of 60 years. There are no other residents of the home. He does have a cat living in his home. He denies any o ther animal exposures. He does note that there are wild animals on his property. He does no t own birds and has never owned any birds. He denies any history of smoking, though his par ents did smoke when he was a child. He does not drink any alcohol. He has no history of lizandro g use. 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 He has previously been exposed to to [facility] chemicals, namely herbicides, and also extensively to asbestos doing the brake work. He denies having any exposure to hay at this time. FAMILY HISTORY: His mother at age 34 of a blood clot after surgery. His father a t age 78 of a heart attack. He has 1 full sister who has chronic kidney disease on hemodial ysis. They do know of any other medical problems that she has such as hypertension or diabe yakelin. He has two half siblings one half-sister and one half-brother both of whom are healthy . He has 3 children, one son and two daughters, all of whom are healthy. He does not know of any other family history of lung disease or autoimmune disease. REVIEW OF SYSTEMS GENERAL: He denies any fevers, chills, or sweats. He does note that he has had an 8-pound weight loss in 1 week. He reported to me that he had had a good appetite, but to Dr. Ford he reported his appetite has been poor. HEENT: He denied any visual changes or headache. He did note a runny nose. He denied any n bert congestion to me, though he did note that he had to blow a blood clot out of his nose yesterday, which he attributed to using the nasal cannula oxygen. CARDIAC: He denied any chest pain, palpitations, or leg swelling. He denied any paroxysmal nocturnal dyspnea or orthopnea. GASTROINTESTINAL: He denied any nausea, vomiting, abdominal pain, diarrhea or constipation . GENITOURINARY: He denied any hematuria or difficulty urinating, pain with urination or dec rease in urine output. MUSCULOSKELETAL: He notes that he has some chronic joint pain and muscle aches that he att ributes to his age and he has not had any change in these. SKIN: He denied any skin rashes or lesions or itchy skin. NEUROLOGIC: He denied any new focal neurological deficits, headaches, numbness or weakness . ENDOCRINE: He denied any history of diabetes. His noted that he had had high blood [employer] in [place]. He denies any history of thyroid disease. He denied any symptoms of exce ssive thirst or urination. HEMATOLOGY: He denies any issues with bruising or bleeding, any lumps or bumps. PHYSICAL EXAMINATION VITAL SIGNS: T-max since arrival in ICU is 36.9, blood pressure is 136/75, heart rate is 7 6, respirations are 20. Saturation has been running 89% to 96% on 6 liters nasal cannula. GENERAL: The patient appeared to be comfortable and in no acute distress. He did not have any overt dyspnea or cough on exam when I saw him today. He was able to speak in full and c omplete sentences. He was somewhat hard of hearing. HEENT: Sclerae were anicteric. Pupils were equal, round, reactive to light. He had no oral lesions or exudate. NECK: Supple, without adenopathy. CARDIOVASCULAR: Regular rate and rhythm without any significant appreciable murmurs, thoug h somewhat distant to auscultation. PULMONARY: No significant accessory muscle use. He was somewhat barrel-chested on exam, bu t I think this was due to his overlying body habitus. Breath sounds were somewhat diminishe d, and he did have somewhat harsh sounding breath sounds but no significant wheezes, crackl es or rhonchi. Air movement was good. ABDOMEN: Normoactive bowel sounds, somewhat obese, soft, nontender, nondistended. EXTREMITIES: Warm, well perfused without cyanosis, clubbing or edema. He had good palpable radial and dorsalis pedis pulses. SKIN: No obvious rashes or lesions and skin was warm and dry. DATA: Records from [facility] were reviewed as was a history and physical from [facility]rij[facility]. CBC showed a white count of 7.1, down from a peak of 12.4 on admission there. Hem atocrit was 41.5, platelets were 311. There were 82.3% neutrophils. Chemistry showed a sodi um of 138, potassium 3.9, chloride 105, bicarbonate 24, BUN of 12, creatinine 0.86, glucose of 130, calcium 8.0. BNP was 57. TSH was 1.10. UA was sent and showed trace occult blood w ith 2-4 red blood cells seen. Specific gravity was 1.015, pH 6.5, otherwise negative. Auto immune serologies have been sent and are pending. Influenza A and B rapid nasal swab was se nt and is presumptive negative. RSV rapid nasal swab was sent and is negative. Influenza A and B swab from [facility] was also negative. BNP on arrival to [facility] w as 349 and decreased to in the hundreds later on in the hospitalization after he did get a single dose of Lasix there. Culture data from there: Blood cultures on arrival 05/13/2012 were no growth to date. By the time of transfer sputum culture had 5 colonies of an unknown staphylococcal species. I have requested an update on the sputum culture. He did have a second sputum culture sent o n 05/13/2012 that did have a few yeast and normal oral robb. ABG on admission to the hospital there showed a pH of 7.42, pCO2 of 36 and PO2 of 60 on an unknown amount of oxygen. Sputum from 05/18/2012 on arrival here shows moderate white blood cells, rare gram-negativ e bacilli and so far is no growth to date. MRSA nasal swab is pending. Imaging was reviewed including chest x-rays from 05/10/2012, 05/13/2012, 05/15/2012, 05/17, and on arrival here on 05/17/2012. I also reviewed the chest CT scan from 05/17/2012 . His chest x-ray from the [facility] on 05/10/2012, already shows patchy bilateral per ihilar consolidation spreading out into ground-glass with consolidation somewhat tracking a long the right-sided fissure. These changes appear to have progressed on the film from 04/23 to 05/15/2012 and then stabilized around 2011. The film from 05/13/2012 is de graded by motion artifact. Chest CT scan was done on 05/17/2012 and does show a somewhat en larged and distorted trachea. There is no significant adenopathy seen though there are a fe w enlarged lymph nodes in the mediastinum, the largest of which appeared to measure about 1 .3 cm. The areas of lung that do not appear to be involved with the acute changes do appear relatively normal, without any significant fibrosis or emphysema. There are patchy, predom inantly consolidative changes seen though some areas of ground-glass are seen as well. These changes seem to be predominantly central and mostly spare the periphery, though not entire ly. They seem to be airway-centric in terms of pattern. There are very tiny bilateral pleur al effusions versus pleural thickening. The pulmonary artery is normal in size measuring 2. 5 cm and there does not appear to be a significant degree of cardiomegaly. ASSESSMENT AND PLAN: MR. SHELDON IS A 77-YEAR-OLD GENTLEMAN WITHOUT ANY SIGNIFICANT DEGRE E OF PAST MEDICAL HISTORY WHO PRESENTS WITH HEMOPTYSIS AND PROGRESSIVE SHORTNESS OF BREATH, FOUND TO HAVE A MARKEDLY ABNORMAL CHEST CT SCAN AND HYPOXEMIA. 1. ACUTE RESPIRATORY FAILURE. Mr. Sheldon presents with acute respiratory failure of not entirely clear etiology. Fortunately, in the last 24 hours his hypoxemia has begun to impro ve. I have reviewed his chest CT scan with Dr. Mak Keenan, radiology, and Dr. Mckeon. My personal feeling is that based on the pattern of abnormality seen that this is likely an airway-centric process, most likely infectious. My suspicion is that this started as a vir al plus/minus bacterial pneumonia and then he developed a concomitant lung injury. Whether it be a simple acute lung injury or the possibility of bronchiolitis obliterans organizing pneumonia has led to him having respiratory failure. At this point , he has started to resp ond to antibiotics alone and has not done well several days ago with the addition of steroi ds. I would leave him on his current antibiotic regimen and hold off further treatment, and wean his oxygen appropriately. If he were to subsequently desaturate then I would consider the addition back of steroids to treat presumptive bronchiolitis obliterans organizing pne umonia, which would be most consistent with his chest CT scan appearance. 2. ABNORMAL WILDA ST CT. As noted above, this appears to be most consistent with an airway-centric process, m ost likely infectious though the appearance does raise the question of bronchiolitis oblite rans organizing pneumonia. This would be more consistent with the appearance of the chest CT scan than would acute lung injury/noncardiogenic pulmonary edema. If the patient has clini rosana worsening , then I would consider the addition of steroids for treatment. However, the patient was previously treated with steroids for about 24 hours at [facility] a nd had clinical worsening of his symptoms. At this point, I am not sure that bronchoscopy w ould add much to his clinical picture. If he did receive steroids for presumptive diagnosis of BOOP and had clinical worsening. at that point I would consider doing a surgical lung b iopsy. 3. PNEUMONIA. Presumptive diagnosis is that of a viral pneumonia, plus/minus bacterial pne umonia. It is possible that he had an underlying sensitive Staph pneumonia and was at least partially treated with doxycycline and Keflex, which is why we are growing minimal organis m on sputum culture. Unfortunately, even with sputum cultures done prior to receiving antib iotics, we only culture an organism in approximately 30-some percent of cases. At this poin t, I agree with stopping the Zosyn and continuing the vancomycin and Levaquin. If we do not definitively identify a resistant staph organism in the next 24-48 hours, I would disconti nue the vancomycin and continue out a 10 to 14-day course of levofloxacin alone. I am going to request the culture data from [facility] to see if they have further speciated out t he staph that was growing in the sputum culture there. In addition, I will send off a Quant iFERON TB gold in-tube assay and a Coccidioides antibody to look for evidence of tuberculos is or fungal disease. If he did have clinical worsening, we could consider doing bronchoscop y , however, at this point I do not think it would add much clinically to his case and only potentially put him at risk of worsening hypoxemia or respiratory failure. If he does have an underlying viral etiology, at this point I am not sure we would gather much on his bron choscopy, and I do not think he would benefit from antiviral therapy. In regard to bacteria l pneumonia with the amount of broad- spectrum antibiotics he has already received, I do no t think we would be likely to collect much more data on bronchoscopy after treatment with v ancomycin and Zosyn and levofloxacin. 4. BRON[address]IE[address]. 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 Likely it is unrelated to his current acute presentation. PLAN 1. I agree with continuing the vancomycin and levofloxacin. If he does not have any eviden ce of resistant staph on any of his cultures in the next 24-48 hours then we could stop the vancomycin and treat with 10-14 days of levofloxacin alone. 2. I agree with stopping the Zosyn as this will only add coverage for a resistant gram-neg ative [place] of which he is not at risk for. 3. If he clinically worsens, I would consider empiric addition of steroids for treatment o f potential bronchiolitis obliterans organizing pneumonia. 4. We will check QuantiFERON TB gold in-tube assay and Coccidioides antibodies. 5. I wi ll continue to follow with you. DICTATED BY: Carmelita Mckeon MD Pulmonary Medicine JOB #: [id number] EXT JOB #:[id number] cc: MD Felice Worthy MD <<Signature on File>> Carmelita duvall MD05/[id number]/121953 <Electronically signed by Carmelita Mckeon MD> documented in this encounter Plan of Treatment +--------+---------+ + + + | Date | Type | Specialty | Care Team | Description | +--------+---------+ + + + | 01/21/ | Office | Urology | Kiko Garrido, | | | 2020 | Visit | | MD Jorge A HENRIQUEZ | | | | | | [place] | | | | | | [id number] | | | | | | | | +--------+---------+ + + + documented as of this encounter Procedures + +--------+ + + + | Procedure Name | Priori | Date/Time | Associated Diagnosis | Comments | | | ty | | | | + +--------+ + + + | CBC WITH | Routin | 05/24/2012 | | Results for this | | DIFFERENTIAL | e | 6:17 AM | | procedure are in the | | | | PST | | results section. | + +--------+ + + + | BASIC METABOLIC | Routin | 05/24/2012 | | Results for this | | PANEL | e | 6:17 AM | | procedure are in the | | | | PST | | results section. | + +--------+ + + + | XR CHEST AP PORTABLE | Routin | 05/23/2012 | | Results for this | | | e | 12:43 PM | | procedure are in the | | | | PST | | results section. | + +--------+ + + + | CBC WITH | Routin | 05/23/2012 | | Results for this | | DIFFERENTIAL | e | 6:41 AM | | procedure are in the | | | | PST | | results section. | + +--------+ + + + | HEPATIC FUNCTION | Routin | 05/23/2012 | | Results for this | | PANEL | e | 6:41 AM | | procedure are in the | | | | PST | | results section. | + +--------+ + + + | BASIC METABOLIC | Routin | 05/23/2012 | | Results for this | | PANEL | e | 6:41 AM | | procedure are in the | | | | PST | | results section. | + +--------+ + + + | XR CHEST AP PORTABLE | Routin | 05/22/2012 | | Results for this | | | e | 10:52 AM | | procedure are in the | | | | PST | | results section. | + +--------+ + + + | CBC WITH | Routin | 05/22/2012 | | Results for this | | DIFFERENTIAL | e | 5:07 AM | | procedure are in the | | | | PST | | results section. | + +--------+ + + + | BASIC METABOLIC | Routin | 05/22/2012 | | Results for this | | PANEL | e | 5:07 AM | | procedure are in the | | | | PST | | results section. | + +--------+ + + + | CBC WITH | Routin | 05/21/2012 | | Results for this | | DIFFERENTIAL | e | 4:01 AM | | procedure are in the | | | | PST | | results section. | + +--------+ + + + | C-REACTIVE PROTEIN | Routin | 05/21/2012 | | Results for this | | | e | 4:01 AM | | procedure are in the | | | | PST | | results section. | + +--------+ + + + | B TYPE NATRIURETIC | Routin | 05/21/2012 | | Results for this | | PEPTIDE | e | 4:01 AM | | procedure are in the | | | | PST | | results section. | + +--------+ + + + | HEPATIC FUNCTION | Routin | 05/21/2012 | | Results for this | | PANEL | e | 4:01 AM | | procedure are in the | | | | PST | | results section. | + +--------+ + + + | BASIC METABOLIC | Routin | 05/21/2012 | | Results for this | | PANEL | e | 4:01 AM | | procedure are in the | | | | PST | | results section. | + +--------+ + + + | XR CHEST AP PORTABLE | Routin | 05/20/2012 | | Results for this | | | e | 10:12 AM | | procedure are in the | | | | PST | | results section. | + +--------+ + + + | BLOOD GAS, ARTERIAL | Routin | 05/20/2012 | | Results for this | | | e | 9:14 AM | | procedure are in the | | | | PST | | results section. | + +--------+ + + + | CBC WITH | Routin | 05/20/2012 | | Results for this | | DIFFERENTIAL | e | 4:44 AM | | procedure are in the | | | | PST | | results section. | + +--------+ + + + | BASIC METABOLIC | Routin | 05/20/2012 | | Results for this | | PANEL | e | 4:44 AM | | procedure are in the | | | | PST | | results section. | + +--------+ + + + | TEETEE MATTHEWS | Routin | 05/19/2012 | | Results for this | | | e | 8:31 AM | | procedure are in the | | | | PST | | results section. | + +--------+ + + + | CBC WITH | Routin | 05/19/2012 | | Results for this | | DIFFERENTIAL | e | 5:25 AM | | procedure are in the | | | | PST | | results section. | + +--------+ + + + | BASIC METABOLIC | Routin | 05/19/2012 | | Results for this | | PANEL | e | 5:25 AM | | procedure are in the | | | | PST | | results section. | + +--------+ + + + | COCCIDIOIDES | Routin | 05/18/2012 | | Results for this | | ANTIBODY | e | 2:48 PM | | procedure are in the | | | | PST | | results section. | + +--------+ + + + | QUANTIFERON GOLD | Routin | 05/18/2012 | | Results for this | | | e | 2:48 PM | | procedure are in the | | | | PST | | results section. | + +--------+ + + + | XR CHEST AP PORTABLE | Routin | 05/18/2012 | | Results for this | | | e | 8:55 AM | | procedure are in the | | | | PST | | results section. | + +--------+ + + + | B TYPE NATRIURETIC | Routin | 05/18/2012 | | Results for this | | PEPTIDE | e | 6:43 AM | | procedure are in the | | | | PST | | results section. | + +--------+ + + + | BASIC METABOLIC | Routin | 05/18/2012 | | Results for this | | PANEL | e | 6:43 AM | | procedure are in the | | | | PST | | results section. | + +--------+ + + + | LORETO MATOS, | Routin | 05/18/2012 | | Results for this | | REFLEX | e | 4:39 AM | | procedure are in the | | | | PST | | results section. | + +--------+ + + + | ANCA PANEL | Routin | 05/18/2012 | | Results for this | | | e | 4:39 AM | | procedure are in the | | | | PST | | results section. | + +--------+ + + + | CBC WITH | Routin | 05/18/2012 | | Results for this | | DIFFERENTIAL | e | 4:39 AM | | procedure are in the | | | | PST | | results section. | + +--------+ + + + | TSH | Routin | 05/18/2012 | | Results for this | | | e | 4:39 AM | | procedure are in the | | | | PST | | results section. | + +--------+ + + + | JUAN LAM, | Routin | 05/17/2012 | | Results for this | | REFLEX | e | 11:39 PM | | procedure are in the | | | | PST | | results section. | + +--------+ + + + | URINALYSIS, REFLEX | Routin | 05/17/2012 | | Results for this | | MICROSCOPIC AND/OR | e | 11:39 PM | | procedure are in the | | CULTURE | | PST | | results section. | + +--------+ + + + | RESPIRATORY | Routin | 05/17/2012 | | Results for this | | SYNCYTIAL VIRUS, | e | 9:41 PM | | procedure are in the | | SCREEN | | PST | | results section. | + +--------+ + + + | INFLUENZA A AND B | Routin | 05/17/2012 | | Results for this | | [place], [place] | e | 9:41 PM | | procedure are in the | | | | PST | | results section. | + +--------+ + + + | CULTURE, MRSA | Routin | 05/17/2012 | | | | | e | 6:53 PM | | | | | | PST | | | + +--------+ + + + documented in this encounter Results CBC with Differential (05/24/2012 6:17 AM PST) + + + + + + | Component | Value | Ref Range | Performed | Pathologist | | | | | At | Signature | + + + + + + | MANUAL | NO | | [facility] | | | DIFFERENTIA | | | [facility] | | | [facility] ? | | | [facility] | | | | | | [facility] - | | | | | | LABORATORY | | + + + + + + | White Blood | 8.3 | 4.0 - 11.0 K/uL | [facility] | | | Cells | | | [facility] | | | | | | [facility] | | | | | | [facility] - | | | | | | LABORATORY | | + + + + + + | Red Blood | 4.36 | 4.30 - 5.70 | [facility] | | | Cells | | M/uL | [facility] | | | | | | [facility] | | | | | | [facility] - | | | | | | LABORATORY | | + + + + + + | Hemoglobin | 15.3 | 13.5 - 18.0 | [facility] | | | | | gm/dL | [facility] | | | | | | [facility] | | | | | | [facility] - | | | | | | LABORATORY | | + + + + + + | Hematocrit | 44.5 | 40.0 - 51.0 % | [facility] | | | | | | [facility] | | | | | | [facility] | | | | | | [facility] - | | | | | | LABORATORY | | + + + + + + | MCV | 102.2 (H) | 83.0 - 101.0 fL | [facility] | | | | | | [facility] | | | | | | [facility] | | | | | | [facility] - | | | | | | LABORATORY | | + + + + + + | MCH | 35.2 (H) | 28.0 - 35.0 pg | [facility] | | | | | | [facility] | | | | | | [facility] | | | | | | [facility] - | | | | | | LABORATORY | | + + + + + + | MCHC | 34.4 | 32.0 - 36.0 | [facility] | | | | | g/dL | [facility] | | | | | | [facility] | | | | | | [facility] - | | | | | | LABORATORY | | + + + + + + | RDW-CV | 14.2 | <15.0 % | [facility] | | | | | | [facility] | | | | | | [facility] | | | | | | [facility] - | | | | | | LAB[facility]ATORY | | + + + + + + | Platelet | 179 (A) | 140 - 440 K/uL | [facility] | | | Count | | | [facility] | | | | | | [facility] | | | | | | [facility] - | | | | | | LABORATORY | | + + + + + + | % | 92.0 (H) | 45 - 75 % | [facility] | | | Neutrophils | | | [facility] | | | | | | [facility] | | | | | | [facility] - | | | | | | LABORATORY | | + + + + + + | % | 4.4 (L) | 20 - 45 % | [facility] | | | Lymphocytes | | | [facility] | | | | | | [facility] | | | | | | [facility] - | | | | | | LABORATORY | | + + + + + + | % Monocytes | 3.3 (L) | 4 - 12 % | [facility] | | | | | | [facility] | | | | | | [facility] | | | | | | [facility] - | | | | | | LABORATORY | | + + + + + + | % | 0.0 | 0 - 5 % | [facility] | | | Eosinophils | | | [facility] | | | | | | [facility] | | | | | | C[facility] - | | | | | | LABORATORY | | + + + + + + | % Basophils | 0.3 | 0 - 1 % | [facility] | | | | | | [facility] | | | | | | [facility] | | | | | | [facility] - | | | | | | LABORATORY | | + + + + + + | Absolute | 7.6 (H) | 1.5 - 6.6 K/uL | [facility] | | | Neutrophils | | | [facility] | | | | | | [facility] | | | | | | [facility] - | | | | | | LABORATORY | | + + + + + + | Absolute | 0.4 (L) | 0.6 - 3.2 K/uL | [facility] | | | Lymphocytes | | | [facility] | | | | | | [facility] | | | | | | C[facility] - | | | | | | LABORATORY | | + + + + + + | Absolute | 0.3 | 0.0 - 1.0 K/uL | [facility] | | | Monocytes | | | [facility] | | | | | | [facility] | | | | | | [facility] - | | | | | | LABORATORY | | + + + + + + | Absolute | 0.0 | 0.0 - 0.4 K/uL | [facility] | | | Eosinophils | | | [facility] | | | | | | [facility] | | | | | | C[facility] - | | | | | | LABORATORY | | + + + + + + | Absolute | 0.0 | 0.0 - 0.1 K/uL | [facility] | | | Basophils | | | [facility] | | | | | | [facility] | | | | | | [facility] - | | | | | | LABORATORY | | + + + + + + + + | Specimen | + + | | + + + + + + + | Performing | Address | City/State/Zipcode | Phone Number | | Organization | | | | + + + + + | [facility] | [address] | [place] | [phone] | | [facility] | | [id number] | | | - LABORATORY | | | | + + + + + | [facility] | [address] | [place], [place] | | | [facility] | | [id number] | | | - LABORATORY | | | | + + + + + Basic Metabolic Panel (05/24/2012 6:17 AM PST) + + + + + + | Component | Value | Ref Range | Performed | Pathologist | | | | | At | Signature | + + + + + + | Glucose | 185 (H) | 70 - 109 mg/dL | [facility] | | | | | | [facility] | | | | | | [facility] | | | | | | CENTER - | | | | | | LABORATORY | | + + + + + + | Calcium | 8.5 | 8.3 - 10.5 | [facility] | | | | | mg/dL | [facility] | | | | | | [facility] | | | | | | CENTER - | | | | | | LABORATORY | | + + + + + + | BUN | 26 (H) | 7 - 18 mg/dL | [facility] | | | | | | [facility] | | | | | | [facility] | | | | | | C[facility] - | | | | | | LABORATORY | | + + + + + + | Creatinine | 1.06 | 0.60 - 1.30 | [facility] | | | | | mg/dL | [facility] | | | | | | [facility] | | | | | | CENTER - | | | | | | LABORATORY | | + + + + + + | Estimated | >60Comment: For | >60 mL/min/A | [facility] | | | GFR | -Americans, | | [facility] | | | | please multiply the | | MEDICAL | | | | result by 1.210 | | CENTER - | | | | This is an estimated | | LABORATORY | | | | GFR and is based on a | | | | | | standard adult | | | | | | body mass (A=1.73m2) and | | | | | | serum creatinine | | | | + + + + + + | BUN/Creatin | 24.5 (H) | 12 - 20 | [facility] | | | ine Ratio | | | [facility] | | | | | | MEDICAL | | | | | | CENTER - | | | | | | LABORATORY | | + + + + + + | Na | 133 (L) | 136 - 149 mEq/L | [facility] | | | | | | [facility] | | [facility] | | | [facility] | | | | | | [facility] - | | | | | | LABORATORY | | + + + + + + | K | 4.4 | 3.5 - 5.1 mEq/l | [facility] | | | | | | [facility] | | | | | | [facility] | | | | | | C[facility] - | | | | | | LABORATORY | | + + + + + + | Cl | 104 | 98 - 109 mEq/l | [facility] | | | | | | [facility] | | | | | | [facility] | | | | | | CENTER - | | | | | | LABORATORY | | + + + + + + | CO2 | 22 (L) | 24 - 31 mEq/L | [facility] | | | | | | [facility] | | | | | | [facility] | | | | | | CENTER - | | | | | | LABORATORY | | + + + + + + | Anion Gap | 11.4 | 6.0 - 17.0 | [facility] | | | | | | [facility] | | | | | | [facility] | | | | | | CENTER - | | | | | | LABORATORY | | + + + + + + + + | Specimen | + + | | + + + + + + + | Performing | Address | City/State/Zipcode | Phone Number | | Organization | | | | + + + + + | [facility] | [address] | [place] | [phone] | | [facility] | | [address] | | | - LABORATORY | | | | + + + + + | [facility] | [address] | [place], [place] | | | [facility] | | [address] | | | - LABORATORY | | | | + + + + + XR Chest AP Portable (05/23/2012 12:43 PM PST) + + | Specimen | + + | | + + + + + | Narrative | Performed At | + + + | [facility] | [facility] | | Department [address], [place] | [facility] | | [ rep ct street1+2] [ rep ct [facility], [place], operated by [facility] | | st zip] Signed | - IMAGING | | | | | Patient Name: RON SHELDON V Physician: | | | VAN. : 1935 Age: 77 Sex: M Unit #: [id number] | | | Exam Date: 05/23/12 Location: [address] [place] [address] | | | Report #: [id number] Page: | | | %(RAD)RES..mtdd.print.filter("pg") of %(RAD) | | | RES..mtdd.print.filter("tpg") | | | | | | Accession Number: [id number] | | | PORTABLE CHEST, 05/23/2012 CLINICAL HISTORY: | | | INFILTRATES AND PNEUMONIA. COMPARISON: 05/22/2012. | | | FINDINGS: Frontal view of the chest. Bilateral | | | interstitial and air space opacities. Areas of consolidation in | | | the midlungs bilaterally. Given slight technical differences, the | | | opacities are stable. No interval development of a large effusion. | | | No pneumothorax. Cardiac and mediastinal contours are stable. | | | IMPRESSION: 1. STABLE INTERSTITIAL AND AIR SPACE | | | OPACITIES. Dictated Date/Time: 05/23/2012 12:43 | | | Transcribed Date/Time: 05/23/2012 14:11 Principal Android Developer: | | | MR.SC <<Signature on File>> | | | Rakesh | | | Myranda Guerrero MD05/23/12 1727 <Electronically signed by Rakesh Whitmore | | Sowmya Guerrero MD> Rakesh Guerrero MD 05/23/12 1243 | | | Principal Android Developer: [employer] [id number]/02/12 1411 | | | | | + + + + + + + + | Performing | Address | City/State/Zipcode | Phone Number | | Organization | | | | + + + + + | [facility] | [address] | [place] | [phone] | | [facility] | | [address] | | | - IMAGING | | | | + + + + + CBC with Differential (05/23/2012 6:41 AM PST) + + + + + + | Component | Value | Ref Range | Performed | Pathologist | | | | | At | Signature | + + + + + + | MANUAL | NO | | [facility] | | | [facility] | | | [facility] | | | L ? | | | [facility] | | | | | | CENTER - | | | | | | LABORATORY | | + + + + + + | White Blood | 8.9 (A) | 4.0 - 11.0 K/uL | [facility] | | | Cells | | | [facility] | | | | | | MEDICAL | | | | | | CENTER - | | | | | | LABORATORY | | + + + + + + | Red Blood | 4.13 (L) | 4.30 - 5.70 | [facility] | | | Cells | | M/uL | [facility] | | | | | | MEDICAL | | | | | | CENTER - | | | | | | LABORATORY | | + + + + + + | Hemoglobin | 14.4 | 13.5 - 18.0 | [facility] | | | | | gm/dL | [facility] | | | | | | MEDICAL | | | | | | CENTER - | | | | | | LABORATORY | | + + + + + + | Hematocrit | 42.1 | 40.0 - 51.0 % | [facility] | | | | | | [facility] | | | | | | MEDICAL | | | | | | CENTER - | | | | | | LABORATORY | | + + + + + + | MCV | 102.1 (H) | 83.0 - 101.0 fL | [facility] | | | | | | [facility] | | | | | | MEDICAL | | | | | | CENTER - | | | | | | LABORATORY | | + + + + + + | MCH | 34.8 | 28.0 - 35.0 pg | [facility] | | | | | | [facility] | | | | | | MEDICAL | | | | | | CENTER - | | | | | | LABORATORY | | + + + + + + | MCHC | 34.1 | 32.0 - 36.0 | [facility] | | | | | g/dL | [facility] | | | | | | MEDICAL | | | | | | CENTER - | | | | | | LABORATORY | | + + + + + + | RDW-CV | 14.2 | <15.0 % | [facility] | | | | | | [facility] | | | | | | MEDICAL | | | | | | CENTER - | | | | | | LABORATORY | | + + + + + + | Platelet | 297 | 140 - 440 K/uL | [facility] | | | Count | | | [facility] | | | | | | MEDICAL | | | | | | CENTER - | | | | | | LABORATORY | | + + + + + + | % | 92.1 (H) | 45 - 75 % | [facility] | | | Neutrophils | | | [facility] | | | | | | MEDICAL | | | | | | CENTER - | | | | | | LABORATORY | | + + + + + + | % | 3.9 (L) | 20 - 45 % | [facility] | | | Lymphocytes | | | [facility] | | | | | | MEDICAL | | | | | | CENTER - | | | | | | LABORATORY | | + + + + + + | % Monocytes | 3.5 (L) | 4 - 12 % | [facility] | | | | | | [facility] | | | | | | MEDICAL | | | | | | CENTER - | | | | | | LABORATORY | | + + + + + + | % | 0.1 | 0 - 5 % | [facility] | | | Eosinophils | | | [facility] | | | | | | MEDICAL | | | | | | CENTER - | | | | | | LABORATORY | | + + + + + + | % Basophils | 0.4 | 0 - 1 % | [facility] | | | | | | [facility] | | | | | | MEDICAL | | | | | | CENTER - | | | | | | LABORATORY | | + + + + + + | Absolute | 8.2 (H) | 1.5 - 6.6 K/uL | [facility] | | | Neutrophils | | | [facility] | | | | | | MEDICAL | | | | | | CENTER - | | | | | | LABORATORY | | + + + + + + | Absolute | 0.3 (L) | 0.6 - 3.2 K/uL | [facility] | | | Lymphocytes | | | [facility] | | | | | | MEDICAL | | | | | | CENTER - | | | | | | LABORATORY | | + + + + + + | Absolute | 0.3 | 0.0 - 1.0 K/uL | [facility] | | | Monocytes | | | [facility] | | | | | | MEDICAL | | | | | | CENTER - | | | | | | LABORATORY | | + + + + + + | Absolute | 0.0 | 0.0 - 0.4 K/uL | [facility] | | | Eosinophils | | | [facility] | | | | | | MEDICAL | | | | | | CENTER - | | | | | | LABORATORY | | + + + + + + | Absolute | 0.0 | 0.0 - 0.1 K/uL | [facility] | | | Basophils | | | [facility] | | | | | | MEDICAL | | | | | | CENTER - | | | | | | LABORATORY | | + + + + + + + + | Specimen | + + | | + + + + + + + | Performing | Address | City/State/Zipcode | Phone Number | | Organization | | | | + + + + + | [facility] | [address] | [place] | [phone] | | [facility] | | [address] | | | - LABORATORY | | | | + + + + + | [facility] | [address] | [place] | | | [facility] | | [address] | | | - LABORATORY | | | | + + + + + Hepatic Function Panel (05/23/2012 6:41 AM PST) + + + + + + | Component | Value | Ref Range | Performed | Pathologist | | | | | At | Signature | + + + + + + | Alkaline | 63 | 40 - 110 IU/L | [facility] | | | Phosphatase | | | [facility] | | | | | | MEDICAL | | | | | | CENTER - | | | | | | LABORATORY | | + + + + + + | AST | 18 | 10 - 42 IU/L | [facility] | | | | | | [facility] | | | | | | MEDICAL | | | | | | CENTER - | | | | | | LABORATORY | | + + + + + + | ALT | 26 | 6 - 45 IU/L | [facility] | | | | | | [facility] | | | | | | MEDICAL | | | | | | CENTER - | | | | | | LABORATORY | | + + + + + + | Bilirubin | 0.6 | 0.2 - 1.0 mg/dL | [facility] | | | Total | | | [facility] | | | | | | MEDICAL | | | | | | CENTER - | | | | | | LABORATORY | | + + + + + + | Bilirubin | 0.1 | 0.0 - 0.2 mg/dL | [facility] | | | Direct | | | [facility] | | | | | | MEDICAL | | | | | | CENTER - | | | | | | LABORATORY | | + + + + + + | BILIRUBIN | 0.5Comment: DIRECT BILI | 0.00 - 1.00 | [facility] | | | INDIRECT | = CONJUGATED | mg/dL | [facility] | | | | INDIRECT BILI = | | MEDICAL | | | | UNCONJUGATED | | CENTER - | | | | | | LABORATORY | | + + + + + + | Total | 5.9 (L) | 6.0 - 7.8 gm/dL | [facility] | | | Protein | | | [facility] | | | | | | MEDICAL | | | | | | CENTER - | | | | | | LABORATORY | | + + + + + + | Albumin | 2.7 (L) | 3.2 - 5.0 gm/dL | [facility] | | | | | | [facility] | | | | | | MEDICAL | | | | | | CENTER - | | | | | | LABORATORY | | + + + + + + + + | Specimen | + + | | + + + + + + + | Performing | Address | City/State/Zipcode | Phone Number | | Organization | | | | + + + + + | [facility] | [address] | [place] | [phone] | | [facility] | | [address] | | | - LABORATORY | | | | + + + + + | [facility] | [address] | [place] | | | [facility] | | [address] | | | - LABORATORY | | | | + + + + + Basic Metabolic Panel (05/23/2012 6:41 AM PST) + + + + + + | Component | Value | Ref Range | Performed | Pathologist | | | | | At | Signature | + + + + + + | Glucose | 173 (H) | 70 - 109 mg/dL | [facility] | | | | | | [facility] | | | | | | MEDICAL | | | | | | CENTER - | | | | | | LABORATORY | | + + + + + + | Calcium | 8.5 | 8.3 - 10.5 | [facility] | | | | | mg/dL | [facility] | | | | | | MEDICAL | | | | | | CENTER - | | | | | | LABORATORY | | + + + + + + | BUN | 26 (H) | 7 - 18 mg/dL | [facility] | | | | | | [facility] | | | | | | MEDICAL | | | | | | CENTER - | | | | | | LABORATORY | | + + + + + + | Creatinine | 0.95 | 0.60 - 1.30 | [facility] | | | | | mg/dL | [facility] | | | | | | MEDICAL | | | | | | CENTER - | | | | | | LABORATORY | | + + + + + + | Estimated | >60Comment: For | >60 mL/min/A | [facility] | | | GFR | -Americans, | | [facility] | | | | please multiply the | | MEDICAL | | | | result by 1.210 | | CENTER - | | | | This is an estimated | | LABORATORY | | | | GFR and is based on a | | | | | | standard adult | | | | | | body mass (A=1.73m2) and | | | | | | serum creatinine | | | | + + + + + + | BUN/Creatin | 27.4 (H) | 12 - 20 | [facility] | | | ine Ratio | | | [facility] | | | | | | MEDICAL | | | | | | CENTER - | | | | | | LABORATORY | | + + + + + + | Na | 137 | 136 - 149 mEq/L | [facility] | | | | | | [facility] | | | | | | MEDICAL | | | | | | CENTER - | | | | | | LABORATORY | | + + + + + + | K | 4.3 | 3.5 - 5.1 mEq/l | [facility] | | | | | | [facility] | | | | | | MEDICAL | | | | | | CENTER - | | | | | | LABORATORY | | + + + + + + | Cl | 107 | 98 - 109 mEq/l | [facility] | | | | | | [facility] | | | | | | MEDICAL | | | | | | CENTER - | | | | | | LABORATORY | | + + + + + + | CO2 | 23 (L) | 24 - 31 mEq/L | [facility] | | | | | | [facility] | | | | | | MEDICAL | | | | | | CENTER - | | | | | | LABORATORY | | + + + + + + | Anion Gap | 11.3 | 6.0 - 17.0 | [facility] | | | | | | [facility] | | | | | | MEDICAL | | | | | | CENTER - | | | | | | LABORATORY | | + + + + + + + + | Specimen | + + | | + + + + + + + | Performing | Address | City/State/Zipcode | Phone Number | | Organization | | | | + + + + + | [facility] | [address] | [place], [place] | [phone] | | [facility] | | [address] | | | - LABORATORY | | | | + + + + + | [facility] | [address] | [place], [place] | | | [facility] | | [address], [facility] | | | - LABORATORY | | | | + + + + + XR Chest AP Portable (05/22/2012 10:52 AM PST) + + | Specimen | + + | | + + + + + | Narrative | Performed At | + + + | [facility] | [facility] | | Department [address] [place] [address] | [facility] | | [ rep ct street1+2] [ rep ct [facility] [place] | | st [facility]] Signed | - IMAGING | | | | | Patient Name: RON SHELDON V Physician: | | | OFFMelina. : 1935 Age: 77 Sex: M Unit #: [id number] | | | Exam Date: 05/22/12 Location: [address] [place] [address] | | | Report #: [id number] Page: | | | %(RAD)RES..mtdd.print.filter("pg") of %(RAD) | | | RES..mtdd.print.filter("tpg") | | | | | | Accession Number: [id number] | | | PORTABLE CHEST, 05/22/2012 CLINICAL HISTORY: FOLLOWUP | | | PNEUMONIA. COMPARISON: 05/20/2012. FINDINGS: | | | Persistent bilateral patchy interstitial and air space opacities. | | | The pattern is stable. The pattern is somewhat symmetric. The | | | cardiac contour remains mildly enlarged. Osseous structures are | | | stable. IMPRESSION: 1. STABLE BILATERAL | | | INTERSTITIAL AND AIR SPACE OPACITIES, NONSPECIFIC. | | | Dictated Date/Time: 05/22/2012 10:52 Transcribed Date/Time: | | | 05/22/2012 11:53 Principal Android Developer: | | | <<Signature on File>> | | | Rakesh | | | Myranda Guerrero MD05/22/121943 <Electronically signed by Rakesh Whitmore | | | Yolanda TERAN> Rakesh Guerrero MD 05/22/12 1052 | | | Principal Android Developer: [employer] [id number]/01/12 1153 | | | Carmelita Mckeon MD | | + + + + + + + + | Performing | Address | City/State/Zipcode | Phone Number | | Organization | | | | + + + + + | [facility] | [address] | [place] | [phone] | | [facility] | | [address] | | | - IMAGING | | | | + + + + + CBC with Differential (05/22/2012 5:07 AM PST) + + + + + + | Component | Value | Ref Range | Performed | Pathologist | | | | | At | Signature | + + + + + + | MANUAL | NO | | [facility] | | | DIFFERENTIA | | | [facility] | | | L ? | | | MEDICAL | | | | | | CENTER - | | | | | | LABORATORY | | + + + + + + | White Blood | 11.7 (H) | 4.0 - 11.0 K/uL | [facility] | | | Cells | | | [facility] | | | | | | MEDICAL | | | | | | CENTER - | | | | | | LABORATORY | | + + + + + + | Red Blood | 3.94 (L) | 4.30 - 5.70 | [facility] | | | Cells | | M/uL | [facility] | | | | | | MEDICAL | | | | | | CENTER - | | | | | | LABORATORY | | + + + + + + | Hemoglobin | 13.9 | 13.5 - 18.0 | [facility] | | | | | gm/dL | [facility] | | | | | | MEDICAL | | | | | | CENTER - | | | | | | LABORATORY | | + + + + + + | Hematocrit | 40.1 | 40.0 - 51.0 % | [facility] | | | | | | [facility] | | | | | | MEDICAL | | | | | | CENTER - | | | | | | LABORATORY | | + + + + + + | MCV | 101.9 (H) | 83.0 - 101.0 fL | [facility] | | | | | | [facility] | | | | | | MEDICAL | | | | | | CENTER - | | | | | | LABORATORY | | + + + + + + | MCH | 35.3 (H) | 28.0 - 35.0 pg | [facility] | | | | | | [facility] | | | | | | MEDICAL | | | | | | CENTER - | | | | | | LABORATORY | | + + + + + + | MCHC | 34.7 | 32.0 - 36.0 | [facility] | | | | | g/dL | [facility] | | | | | | MEDICAL | | | | | | CENTER - | | | | | | LABORATORY | | + + + + + + | RDW-CV | 13.9 | <15.0 % | [facility] | | | | | | [facility] | | | | | | MEDICAL | | | | | | CENTER - | | | | | | LABORATORY | | + + + + + + | Platelet | 317 | 140 - 440 K/uL | [facility] | | | Count | | | [facility] | | | | | | MEDICAL | | | | | | CENTER - | | | | | | LABORATORY | | + + + + + + | % | 92.4 (H) | 45 - 75 % | [facility] | | | Neutrophils | | | [facility] | | | | | | MEDICAL | | | | | | CENTER - | | | | | | LABORATORY | | + + + + + + | % | 3.8 (L) | 20 - 45 % | [facility] | | | Lymphocytes | | | [facility] | | | | | | MEDICAL | | | | | | CENTER - | | | | | | LABORATORY | | + + + + + + | % Monocytes | 3.4 (L) | 4 - 12 % | [facility] | | | | | | [facility] | | | | | | MEDICAL | | | | | | CENTER - | | | | | | LABORATORY | | + + + + + + | % | 0.0 | 0 - 5 % | [facility] | | | Eosinophils | | | [facility] | | | | | | MEDICAL | | | | | | CENTER - | | | | | | LABORATORY | | + + + + + + | % Basophils | 0.4 | 0 - 1 % | [facility] | | | | | | [facility] | | | | | | MEDICAL | | | | | | CENTER - | | | | | | LABORATORY | | + + + + + + | Absolute | 10.8 (H) | 1.5 - 6.6 K/uL | [facility] | | | Neutrophils | | | [facility] | | | | | | MEDICAL | | | | | | CENTER - | | | | | | LABORATORY | | + + + + + + | Absolute | 0.4 (L) | 0.6 - 3.2 K/uL | [facility] | | | Lymphocytes | | | [facility] | | | | | | MEDICAL | | | | | | CENTER - | | | | | | LABORATORY | | + + + + + + | Absolute | 0.4 | 0.0 - 1.0 K/uL | [facility] | | | Monocytes | | | [facility] | | | | | | MEDICAL | | | | | | CENTER - | | | | | | LABORATORY | | + + + + + + | Absolute | 0.0 | 0.0 - 0.4 K/uL | [facility] | | | Eosinophils | | | [facility] | | | | | | MEDICAL | | | | | | CENTER - | | | | | | LABORATORY | | + + + + + + | Absolute | 0.0 | 0.0 - 0.1 K/uL | [facility] | | | Basophils | | | [facility] | | | | | | MEDICAL | | | | | | CENTER - | | | | | | LABORATORY | | + + + + + + + + | Specimen | + + | | + + + + + + + | Performing | Address | City/State/Zipcode | Phone Number | | Organization | | | | + + + + + | [facility] | [address] | [place], [place] | [phone] | | [facility] | | [address] | | | - LABORATORY | | | | + + + + + | [facility] | [address] | [place], [place] | | | [facility] | | [id number] [place] [address] | | | - LABORATORY | | | | + + + + + Basic Metabolic Panel (05/22/2012 5:07 AM PST) + + + + + + | Component | Value | Ref Range | Performed | Pathologist | | | | | At | Signature | + + + + + + | Glucose | 165 (H) | 70 - 109 mg/dL | [facility] | | | | | | [facility] | | | | | | MEDICAL | | | | | | CENTER - | | | | | | LABORATORY | | + + + + + + | Calcium | 8.2 (L) | 8.3 - 10.5 | [facility] | | | | | mg/dL | [facility] | | | | | | MEDICAL | | | | | | CENTER - | | | | | | LABORATORY | | + + + + + + | BUN | 24 (H) | 7 - 18 mg/dL | [facility] | | | | | | [facility] | | | | | | MEDICAL | | | | | | CENTER - | | | | | | LABORATORY | | + + + + + + | Creatinine | 0.92 | 0.60 - 1.30 | [facility] | | | | | mg/dL | [facility] | | | | | | MEDICAL | | | | | | CENTER - | | | | | | LABORATORY | | + + + + + + | Estimated | >60Comment: For | >60 mL/min/A | [facility] | | | GFR | -Americans, | | [facility] | | | | please multiply the | | MEDICAL | | | | result by 1.210 | | CENTER - | | | | This is an estimated | | LABORATORY | | | | GFR and is based on a | | | | | | standard adult | | | | | | body mass (A=1.73m2) and | | | | | | serum creatinine | | | | + + + + + + | BUN/Creatin | 26.1 (H) | 12 - 20 | [facility] | | | ine Ratio | | | [facility] | | | | | | MEDICAL | | | | | | CENTER - | | | | | | LABORATORY | | + + + + + + | Na | 134 (L) | 136 - 149 mEq/L | [facility] | | | | | | [facility] | | | | | | MEDICAL | | | | | | CENTER - | | | | | | LABORATORY | | + + + + + + | K | 4.2 | 3.5 - 5.1 mEq/l | [facility] | | | | | | [facility] | | | | | | MEDICAL | | | | | | CENTER - | | | | | | LABORATORY | | + + + + + + | Cl | 106 | 98 - 109 mEq/l | [facility] | | | | | | [facility] | | | | | | MEDICAL | | | | | | CENTER - | | | | | | LABORATORY | | + + + + + + | CO2 | 23 (L) | 24 - 31 mEq/L | [facility] | | | | | | [facility] | | | | | | MEDICAL | | | | | | CENTER - | | | | | | LABORATORY | | + + + + + + | Anion Gap | 9.2 | 6.0 - 17.0 | [facility] | | | | | | [facility] | | | | | | MEDICAL | | | | | | CENTER - | | | | | | LABORATORY | | + + + + + + + + | Specimen | + + | | + + + + + + + | Performing | Address | City/State/Zipcode | Phone Number | | Organization | | | | + + + + + | [facility] | [address] | [place] | [phone] | | [facility] | | [address] | | | - LABORATORY | | | | + + + + + | [facility] | [address] | [place] | | | [facility] | | [address], [facility] | | | - LABORATORY | | | | + + + + + CBC with Differential (05/21/2012 4:01 AM PST) + + + + + + | Component | Value | Ref Range | Performed | Pathologist | | | | | At | Signature | + + + + + + | MANUAL | NO | | [facility] | | | DIFFERENTIA | | | [facility] | | | L ? | | | MEDICAL | | | | | | CENTER - | | | | | | LABORATORY | | + + + + + + | White Blood | 9.4 | 4.0 - 11.0 K/uL | [facility] | | | Cells | | | [facility] | | | | | | MEDICAL | | | | | | CENTER - | | | | | | LABORATORY | | + + + + + + | Red Blood | 4.08 (L) | 4.30 - 5.70 | [facility] | | | Cells | | M/uL | [facility] | | | | | | MEDICAL | | | | | | CENTER - | | | | | | LABORATORY | | + + + + + + | Hemoglobin | 14.4 | 13.5 - 18.0 | [facility] | | | | | gm/dL | [facility] | | | | | | MEDICAL | | | | | | CENTER - | | | | | | LABORATORY | | + + + + + + | Hematocrit | 41.8 | 40.0 - 51.0 % | [facility] | | | | | | [facility] | | | | | | MEDICAL | | | | | | CENTER - | | | | | | LABORATORY | | + + + + + + | MCV | 102.5 (H) | 83.0 - 101.0 fL | [facility] | | | | | | [facility] | | | | | | MEDICAL | | | | | | CENTER - | | | | | | LABORATORY | | + + + + + + | MCH | 35.4 (H) | 28.0 - 35.0 pg | [facility] | | | | | | [facility] | | | | | | MEDICAL | | | | | | CENTER - | | | | | | LABORATORY | | + + + + + + | MCHC | 34.5 | 32.0 - 36.0 | [facility] | | | | | g/dL | [facility] | | | | | | MEDICAL | | | | | | CENTER - | | | | | | LABORATORY | | + + + + + + | RDW-CV | 14.0 | <15.0 % | [facility] | | | | | | [facility] | | | | | | MEDICAL | | | | | | CENTER - | | | | | | LABORATORY | | + + + + + + | Platelet | 311 | 140 - 440 K/uL | [facility] | | | Count | | | [facility] | | | | | | MEDICAL | | | | | | CENTER - | | | | | | LABORATORY | | + + + + + + | % | 94.6 (H) | 45 - 75 % | [facility] | | | Neutrophils | | | [facility] | | [facility] | | [facility] | | | | | | CENTER - | | | | | | LABORATORY | | + + + + + + | % | 3.7 (L) | 20 - 45 % | [facility] | | | Lymphocytes | | | [facility] | | | | | | [facility] | | | | | | CENTER - | | | | | | LABORATORY | | + + + + + + | % Monocytes | 1.4 (L) | 4 - 12 % | [facility] | | | | | | [facility] | | | | | | [facility] | | | [facility] | | C[facility] - | | | | | | LABORATORY | | + + + + + + | % | 0.0 | 0 - 5 % | [facility] | | | Eosinophils | | | [facility] | | | | | | [facility] | | | | | | CENTER - | | | | | | LABORATORY | | + + + + + + | % Basophils | 0.3 | 0 - 1 % | [facility] | | | | | | [facility] | | [facility] | [facility] | | | | | | CENTER - | | | | | | LABORATORY | | + + + + + + | Absolute | 8.8 (H) | 1.5 - 6.6 K/uL | [facility] | | | Neutrophils | | | [facility] | | | [facility] | | [facility] | | | | | | CENTER - | | | | | | LABORATORY | | + + + + + + | Absolute | 0.3 (L) | 0.6 - 3.2 K/uL | [facility] | | | Lymphocytes | | | [facility] | | | [facility] | | [facility] | | | | | | CENTER - | | | | | | LABORATORY | | + + + + + + | Absolute | 0.1 | 0.0 - 1.0 K/uL | [facility] | | | Monocytes | | | [facility] | | | | | | [facility] | | | | | | CENTER - | | | | | | LABORATORY | | + + + + + + | Absolute | 0.0 | 0.0 - 0.4 K/uL | [facility] | | | Eosinophils | | | [facility] | | | | | | [facility] | | | | | | CENTER - | | | | | | LABORATORY | | + + + + + + | Absolute | 0.0 | 0.0 - 0.1 K/uL | [facility] | | | Basophils | | | [facility] | | | | | | [facility] | | | | | | CENTER - | | | | | | LABORATORY | | + + + + + + + + | Specimen | + + | | + + + + + + + | Performing | Address | City/State/Zipcode | Phone Number | | Organization | | | | + + + + + | [facility] | [address] | [place] | [phone] | | [facility] | | [address] | | | - LABORATORY | | | | + + + + + | [facility] | [address] | [place] | | | [facility] | | [id number], [facility] | | | - LABORATORY | | | | + + + + + B Type Natriuretic Peptide (05/21/2012 4:01 AM PST) + + + + + + | Component | Value | Ref Range | Performed | Pathologist | | | | | At | Signature | + + + + + + | BNP | 51Comment: Testing | <100 pg/mL | [facility] | | | | performed on the [facility] | | [facility] | | | | [facility] | | MEDICAL | | | | Analyzer. | | CENTER - | | | | | | LABORATORY | | + + + + + + + + | Specimen | + + | | + + + + + + + | Performing | Address | City/State/Zipcode | Phone Number | | Organization | | | | + + + + + | [facility] | [address] | [place] | [phone] | | [facility] | | [address] | | | - LABORATORY | | | | + + + + + | [facility] | [address] | [place], [place] | | | [facility] | | [address] | | | - LABORATORY | | | | + + + + + Hepatic Function Panel (05/21/2012 4:01 AM PST) + + + + + + | Component | Value | Ref Range | Performed | Pathologist | | | | | At | Signature | + + + + + + | Alkaline | 71 | 40 - 110 IU/L | [facility] | | | Phosphatase | | | [facility] | | | | | | MEDICAL | | | | | | CENTER - | | | | | | LABORATORY | | + + + + + + | AST | 23 | 10 - 42 IU/L | [facility] | | | | | | [facility] | | | | | | [facility] | | | | | | CENTER - | | | | | | LABORATORY | | + + + + + + | ALT | 29 | 6 - 45 IU/L | [facility] | | | | | | [facility] | | | | | | [facility]ICAL | | | | | | CENTER - | | | | | | LABORATORY | | + + + + + + | Bilirubin | 0.6 | 0.2 - 1.0 mg/dL | [facility] | | | Total | | | [facility] | | | | | | MEDICAL | | | | | | CENTER - | | | | | | LABORATORY | | + + + + + + | Bilirubin | 0.1 | 0.0 - 0.2 mg/dL | [facility] | | | Direct | | | [facility] | | | | | | MEDICAL | | | | | | CENTER - | | | | | | LABORATORY | | + + + + + + | BILIRUBIN | 0.5Comment: DIRECT BILI | 0.00 - 1.00 | [facility] | | | INDIRECT | = CONJUGATED | mg/dL | [facility] | | | | INDIRECT BILI = | | MEDICAL | | | | UNCONJUGATED | | CENTER - | | | | | | LABORATORY | | + + + + + + | Total | 6.2 | 6.0 - 7.8 gm/dL | [facility] | | | Protein | | | [facility] | | | | | | [facility] | | | | | | CENTER - | | | | | | LABORATORY | | + + + + + + | Albumin | 2.5 (L) | 3.2 - 5.0 gm/dL | [facility] | | | | | | [facility] | | | | | | [facility]ICAL | | | | | | CENTER - | | | | | | LABORATORY | | + + + + + + + + | Specimen | + + | | + + + + + + + | Performing | Address | City/State/Zipcode | Phone Number | | Organization | | | | + + + + + | [facility] | [address] | [place] | [phone] | | [facility] | | [address] | | | - LABORATORY | | | | + + + + + | [facility] | [address] | [place] | | | [facility] | | [address], [facility] | | | - LABORATORY | | | | + + + + + Basic Metabolic Panel (05/21/2012 4:01 AM PST) + + + + + + | Component | Value | Ref Range | Performed | Pathologist | | | | | At | Signature | + + + + + + | Glucose | 176 (H) | 70 - 109 mg/dL | [facility] | | | | | | [facility] | | | | | | MEDICAL | | | | | | CENTER - | | | | | | LABORATORY | | + + + + + + | Calcium | 8.3 | 8.3 - 10.5 | [facility] | | | | | mg/dL | [facility] | | | | | | MEDICAL | | | | | | CENTER - | | | | | | LABORATORY | | + + + + + + | BUN | 22 (H) | 7 - 18 mg/dL | [facility] | | | | | | [facility] | | | | | | MEDICAL | | | | | | CENTER - | | | | | | LABORATORY | | + + + + + + | Creatinine | 1.04 | 0.60 - 1.30 | [facility] | | | | | mg/dL | [facility] | | | | | | MEDICAL | | | | | | CENTER - | | | | | | LABORATORY | | + + + + + + | Estimated | >60Comment: For | >60 mL/min/A | [facility] | | | GFR | -Americans, | | [facility] | | | | please multiply the | | MEDICAL | | | | result by 1.210 | | CENTER - | | | | This is an estimated | | LABORATORY | | | | GFR and is based on a | | | | | | standard adult | | | | | | body mass (A=1.73m2) and | | | | | | serum creatinine | | | | + + + + + + | BUN/Creatin | 21.2 (H) | 12 - 20 | [facility] | | | ine Ratio | | | [facility] | | | | | | MEDICAL | | | | | | CENTER - | | | | | | LABORATORY | | + + + + + + | Na | 133 (L) | 136 - 149 mEq/L | [facility] | | | | | | [facility] | | | | | | MEDICAL | | | | | | CENTER - | | | | | | LABORATORY | | + + + + + + | K | 4.3 | 3.5 - 5.1 mEq/l | [facility] | | | | | | [facility] | | | | | | MEDICAL | | | | | | CENTER - | | | | | | LABORATORY | | + + + + + + | Cl | 105 | 98 - 109 mEq/l | [facility] | | | | | | [facility] | | | | | | MEDICAL | | | | | | CENTER - | | | | | | LABORATORY | | + + + + + + | CO2 | 23 (L) | 24 - 31 mEq/L | [facility] | | | | | | [facility] | | | | | | MEDICAL | | | | | | CENTER - | | | | | | LABORATORY | | + + + + + + | Anion Gap | 9.3 | 6.0 - 17.0 | [facility] | | | | | | [facility] | | | | | | MEDICAL | | | | | | CENTER - | | | | | | LABORATORY | | + + + + + + + + | Specimen | + + | | + + + + + + + | Performing | Address | City/State/Zipcode | Phone Number | | Organization | | | | + + + + + | [facility] | [address] | [place], [place] | [phone] | | [facility] | | [address] | | | - LABORATORY | | | | + + + + + | [facility] | [address] | [place], [place] | | | [facility] | | [id number] [place] [address] | | | - LABORATORY | | | | + + + + + C-Reactive Protein (05/21/2012 4:01 AM PST) + + + + + + | Component | Value | Ref Range | Performed | Pathologist | | | | | At | Signature | + + + + + + | CRP | 26.0 (H)Comment: Levels | <8.0 mg/L | [facility] | | | | >8.0 mg/L indicate | | [facility] | | | | possible infection, | | MEDICAL | | | | trauma, cardiac | | CENTER - | | | | infarct or neoplastic | | LABORATORY | | | | proliferation. | | | | + + + + + + + + | Specimen | + + | | + + + + + + + | Performing | Address | City/State/Zipcode | Phone Number | | Organization | | | | + + + + + | [facility] | [address] | [place], [place] | [phone] | | [facility] | | [address] | | | - LABORATORY | | | | + + + + + | [facility] | [address] | [place], [place] | | | [facility] | | [address], [facility] | | | - LABORATORY | | | | + + + + + XR Chest AP Portable (05/20/2012 10:12 AM PST) + + | Specimen | + + | | + + + + + | Narrative | Performed At | + + + | [facility] | [facility] | | Department [address] [facility], [place] | [facility] | | [ rep [address]] [ rep [facility] | | st zip] Signed | - IMAGING | | | | | Patient Name: MARQUISMyrandaRON Ahn Physician: | | | . : 1935 Age: 77 Sex: M Unit #: [id number] | | | Exam Date: 05/20/12 Location: [address] [place] [address] | | | Report #: [id number] Page: | | | %(RAD)RES..mtdd.print.filter("pg") of %(RAD) | | | RES..mtdd.print.filter("tpg") | | | | | | Accession Number: [id number] | | | PORTABLE CHEST X-RAY CLINICAL HISTORY: FOLLOWUP | | | PNEUMONIA COMPARISON: 05/17/2012 FINDINGS: | | | Heart size and mediastinal contours are within normal limits. | | | There are low lung volumes. Patchy air-space density seen | | | throughout both lungs in predominantly a perihilar distribution is not | | | substantially changed as compared with the prior study. There is | | | relative sparing of the periphery of the lung. A slight amount of | | | fluid is seen in the minor fissure on the right. There is no | | | evidence of pleural effusion or pneumothorax. There is diffuse | | | degenerative disc disease. The soft tissues and osseous structures | | | are otherwise unremarkable. IMPRESSION: PATCHY | | | BILATERAL, PREDOMINANTLY PERIHILAR DENSITIES NOT SUBSTANTIALLY CHANGED | | | COMPARED WITH 05/17/2012. DIFFERENTIAL DIAGNOSIS INCLUDES | | | ATYPICAL BILATERAL PNEUMONIA, PULMONARY EDEMA, AND ARDS. CARCINOMA | | | CANNOT BE ENTIRELY EXCLUDED. RECOMMEND FOLLOW TO RESOLUTION. | | | Dictated Date/Time: 05/20/2012 10:12 Transcribed | | | Date/Time: 05/20/2012 10:16 Principal Android Developer: JAMI | | | <<Signature on File>> | | | Kiko | | | Melina Hair MD05/20/12 1038 <Electronically signed by Kiko Lindo | | | Laxmi TERAN> Kiko Hair MD 05/20/12 1012 | | | Principal Android Developer: [employer] Erfayoeuxffei97/29/12 1016 | | | Carmelita Mckeon MD | | + + + + + + + + | Performing | Address | City/State/Zipcode | Phone Number | | Organization | | | | + + + + + | [facility] | [address] | [place] | [phone] | | [facility] | | [address] | | | - IMAGING | | | | + + + + + Blood Gas, Arterial (05/20/2012 9:14 AM PST) + + + + + + | Component | Value | Ref Range | Performed | Pathologist | | | | | At | Signature | + + + + + + | Blood Gas | ARTERIAL | | [facility] | | | Sample Type | | | [facility] | | | | | | MEDICAL | | | | | | CENTER - | | | | | | LABORATORY | | + + + + + + | Blood Gas | 1LR0 | | [facility] | | | Sample Site | | | [facility] | | | | | | MEDICAL | | | | | | CENTER - | | | | | | LABORATORY | | + + + + + + | Gamaliel | PASSED | | [facility] | | | | | | [facility] | | | | | | MEDICAL | | | | | | CENTER - | | | | | | LABORATORY | | + + + + + + | Source Of | OXYMIZER | | [facility] | | | Oxygen | | | [facility] | | | | | | MEDICAL | | | | | | CENTER - | | | | | | LABORATORY | | + + + + + + | L/min of O2 | 15 | | [facility] | | | | | | [facility] | | | | | | MEDICAL | | | | | | CENTER - | | | | | | LABORATORY | | + + + + + + | Comment | 22 | | [facility] | | | | | | [facility] | | | | | | MEDICAL | | | | | | CENTER - | | | | | | LABORATORY | | + + + + + + | Patient | 36.5 | | [facility] | | | Temperature | | | [facility] | | | | | | MEDICAL | | | | | | CENTER - | | | | | | LABORATORY | | + + + + + + | pH, | 7.409 | 7.350 - 7.450 | [facility] | | | Arterial | | | [facility] | | | | | | MEDICAL | | | | | | CENTER - | | | | | | LABORATORY | | + + + + + + | pCO2, | 35.8 | 35.0 - 45.0 | [facility] | | | Arterial | | mmHg | [facility] | | | | | | MEDICAL | | | | | | CENTER - | | | | | | LABORATORY | | + + + + + + | pO2, | 57.0 (L) | 60.0 - 90.0 | [facility] | | | Arterial | | mmHg | [facility] | | | | | | MEDICAL | | | | | | CENTER - | | | | | | LABORATORY | | + + + + + + | pH Temp | 7.416 | 7.350 - 7.450 | [facility] | | | Corrected, | | | [facility] | | | Arterial | | | MEDICAL | | | | | | CENTER - | | | | | | LABORATORY | | + + + + + + | pCO2 Temp | 35.1 | 35.0 - 45.0 | [facility] | | | Corrected | | mmHg | [facility] | | | | | | MEDICAL | | | | | | CENTER - | | | | | | LABORATORY | | + + + + + + | pO2 Temp | 55.0 (L) | 60.0 - 90.0 | [facility] | | | Corrected | | mmHg | [facility] | | | | | | MEDICAL | | | | | | CENTER - | | | | | | LABORATORY | | + + + + + + | HCO3, | 22.7 | 22.0 - 28.0 | [facility] | | | Arterial | | | [facility] | | | | | | MEDICAL | | | | | | CENTER - | | | | | | LABORATORY | | + + + + + + | Base | -1.0 | -2.0 to 2.0 | [facility] | | | Excess, | | | [facility] | | | Arterial | | | MEDICAL | | | | | | CENTER - | | | | | | LABORATORY | | + + + + + + | O2 | 90.0 | 90.0 - 100.0 % | [facility] | | | Saturation, | | | [facility] | | | Arterial | | | MEDICAL | | | | | | CENTER - | | | | | | LABORATORY | | + + + + + + + + | Specimen | + + | | + + + + + + + | Performing | Address | City/State/Zipcode | Phone Number | | Organization | | | | + + + + + | [facility] | [address] | [place] | [phone] | | [facility] | | [address] | | | - LABORATORY | | | | + + + + + | [facility] | [address] | [place], [place] | | | [facility] | | [address], [facility] | | | - LABORATORY | | | | + + + + + CBC with Differential (05/20/2012 4:44 AM PST) + + + + + + | Component | Value | Ref Range | Performed | Pathologist | | | | | At | Signature | + + + + + + | MANUAL | NO | | [facility] | | | DIFFERENTIA | | | [facility] | | | L ? | | | MEDICAL | | | | | | CENTER - | | | | | | LABORATORY | | + + + + + + | White Blood | 9.2 (A) | 4.0 - 11.0 K/uL | [facility] | | | Cells | | | [facility] | | | | | | MEDICAL | | | | | | CENTER - | | | | | | LABORATORY | | + + + + + + | Red Blood | 3.90 (L) | 4.30 - 5.70 | [facility] | | | Cells | | M/uL | [facility] | | | | | | MEDICAL | | | | | | CENTER - | | | | | | LABORATORY | | + + + + + + | Hemoglobin | 13.7 | 13.5 - 18.0 | [facility] | | | | | gm/dL | [facility] | | | | | | MEDICAL | | | | | | CENTER - | | | | | | LABORATORY | | + + + + + + | Hematocrit | 40.1 | 40.0 - 51.0 % | [facility] | | | | | | [facility] | | | | | | MEDICAL | | | | | | CENTER - | | | | | | LABORATORY | | + + + + + + | MCV | 102.6 (H) | 83.0 - 101.0 fL | [facility] | | | | | | [facility] | | | | | | MEDICAL | | | | | | CENTER - | | | | | | LABORATORY | | + + + + + + | MCH | 35.2 (H) | 28.0 - 35.0 pg | [facility] | | | | | | [facility] | | | | | | MEDICAL | | | | | | CENTER - | | | | | | LABORATORY | | + + + + + + | MCHC | 34.3 | 32.0 - 36.0 | [facility] | | | | | g/dL | [facility] | | | | | | MEDICAL | | | | | | CENTER - | | | | | | LABORATORY | | + + + + + + | RDW-CV | 14.1 | <15.0 % | [facility] | | | | | | [facility] | | | | | | MEDICAL | | | | | | CENTER - | | | | | | LABORATORY | | + + + + + + | Platelet | 317 | 140 - 440 K/uL | [facility] | | | Count | | | [facility] | | | | | | MEDICAL | | | | | | CENTER - | | | | | | LABORATORY | | + + + + + + | % | 80.3 (H) | 45 - 75 % | [facility] | | | Neutrophils | | | [facility] | | | | | | MEDICAL | | | | | | CENTER - | | | | | | LABORATORY | | + + + + + + | % | 8.4 (L) | 20 - 45 % | [facility] | | | Lymphocytes | | | [facility] | | | | | | MEDICAL | | | | | | CENTER - | | | | | | LABORATORY | | + + + + + + | % Monocytes | 6.7 | 4 - 12 % | [facility] | | | | | | [facility] | | | | | | MEDICAL | | | | | | CENTER - | | | | | | LABORATORY | | + + + + + + | % | 3.6 | 0 - 5 % | [facility] | | | Eosinophils | | | [facility] | | | | | | MEDICAL | | | | | | CENTER - | | | | | | LABORATORY | | + + + + + + | % Basophils | 1.0 | 0 - 1 % | [facility] | | | | | | [facility] | | | | | | MEDICAL | | | | | | CENTER - | | | | | | LABORATORY | | + + + + + + | Absolute | 7.4 (H) | 1.5 - 6.6 K/uL | [facility] | | | Neutrophils | | | [facility] | | | | | | MEDICAL | | | | | | CENTER - | | | | | | LABORATORY | | + + + + + + | Absolute | 0.8 | 0.6 - 3.2 K/uL | [facility] | | | Lymphocytes | | | [facility] | | | | | | MEDICAL | | | | | | CENTER - | | | | | | LABORATORY | | + + + + + + | Absolute | 0.6 | 0.0 - 1.0 K/uL | [facility] | | | Monocytes | | | [facility] | | | | | | MEDICAL | | | | | | CENTER - | | | | | | LABORATORY | | + + + + + + | Absolute | 0.3 | 0.0 - 0.4 K/uL | [facility] | | | Eosinophils | | | [facility] | | | | | | MEDICAL | | | | | | CENTER - | | | | | | LABORATORY | | + + + + + + | Absolute | 0.1 | 0.0 - 0.1 K/uL | [facility] | | | Basophils | | | [facility] | | | | | | MEDICAL | | | | | | CENTER - | | | | | | LABORATORY | | + + + + + + + + | Specimen | + + | | + + + + + + + | Performing | Address | City/State/Zipcode | Phone Number | | Organization | | | | + + + + + | [facility] | [address] | [place] | [phone] | | [facility] | | [address] | | | - LABORATORY | | | | + + + + + | [facility] | [address] | [place] | | | [facility] | | [address], [facility] | | | - LABORATORY | | | | + + + + + Basic Metabolic Panel (05/20/2012 4:44 AM PST) + + + + + + | Component | Value | Ref Range | Performed | Pathologist | | | | | At | Signature | + + + + + + | Glucose | 126 (H) | 70 - 109 mg/dL | [facility] | | | | | | [facility] | | | | | | MEDICAL | | | | | | CENTER - | | | | | | LABORATORY | | + + + + + + | Calcium | 7.9 (L) | 8.3 - 10.5 | [facility] | | | | | mg/dL | [facility] | | | | | | MEDICAL | | | | | | CENTER - | | | | | | LABORATORY | | + + + + + + | BUN | 15 | 7 - 18 mg/dL | [facility] | | | | | | [facility] | | | | | | MEDICAL | | | | | | CENTER - | | | | | | LABORATORY | | + + + + + + | Creatinine | 1.06 | 0.60 - 1.30 | [facility] | | | | | mg/dL | [facility] | | | | | | MEDICAL | | | | | | CENTER - | | | | | | LABORATORY | | + + + + + + | Estimated | >60Comment: For | >60 mL/min/A | [facility] | | | GFR | -Americans, | | [facility] | | | | please multiply the | | MEDICAL | | | | result by 1.210 | | CENTER - | | | | This is an estimated | | LABORATORY | | | | GFR and is based on a | | | | | | standard adult | | | | | | body mass (A=1.73m2) and | | | | | | serum creatinine | | | | + + + + + + | BUN/Creatin | 14.2 | 12 - 20 | [facility] | | | ine Ratio | | | [facility] | | | | | | MEDICAL | | | | | | CENTER - | | | | | | LABORATORY | | + + + + + + | Na | 135 (L) | 136 - 149 mEq/L | [facility] | | | | | | [facility] | | | | | | MEDICAL | | | | | | CENTER - | | | | | | LABORATORY | | + + + + + + | K | 4.1 | 3.5 - 5.1 mEq/l | [facility] | | | | | | [facility] | | | | | | MEDICAL | | | | | | CENTER - | | | | | | LABORATORY | | + + + + + + | Cl | 103 | 98 - 109 mEq/l | [facility] | | | | | | [facility] | | | | | | MEDICAL | | | | | | CENTER - | | | | | | LABORATORY | | + + + + + + | CO2 | 25 | 24 - 31 mEq/L | [facility] | | | | | | [facility] | | | | | | MEDICAL | | | | | | CENTER - | | | | | | LABORATORY | | + + + + + + | Anion Gap | 11.1 | 6.0 - 17.0 | [facility] | | | | | | [facility] | | | | | | MEDICAL | | | | | | CENTER - | | | | | | LABORATORY | | + + + + + + + + | Specimen | + + | | + + + + + + + | Performing | Address | City/State/Zipcode | Phone Number | | Organization | | | | + + + + + | [facility] | [address] | [place], [place] | [phone] | | [facility] | | [address] | | | - LABORATORY | | | | + + + + + | [facility] | [address] | [place] | | | [facility] | | [address] | | | - LABORATORY | | | | + + + + + Vancomycin, Trough (05/19/2012 8:31 AM PST) + + + + + + | Component | Value | Ref Range | Performed | Pathologist | | | | | At | Signature | + + + + + + | Vancomycin | 18.1Comment: | ug/mL | [facility] | | | Trough | OPTIMAL TROUGH VALUE: | | [facility] | | | | 10-20 ug/dL | | MEDICAL | | | | ALERT VALUE: greater | | CENTER - | | | | than 20 ug/dL | | LABORATORY | | + + + + + + + + | Specimen | + + | | + + + + + + + | Performing | Address | City/State/Zipcode | Phone Number | | Organization | | | | + + + + + | [facility] | [address] | [place] | [phone] | | [facility] | | [address] | | | - LABORATORY | | | | + + + + + | [facility] | [address] | [place], [place] | | | [facility] | | [address] | | | - LABORATORY | | | | + + + + + CBC with Differential (05/19/2012 5:25 AM PST) + + + + + + | Component | Value | Ref Range | Performed | Pathologist | | | | | At | Signature | + + + + + + | MANUAL | NO | | [facility] | | | DIFFERENTIA | | | [facility] | | | L ? | | | MEDICAL | | | | | | CENTER - | | | | | | LABORATORY | | + + + + + + | White Blood | 7.7 | 4.0 - 11.0 K/uL | [facility] | | | Cells | | | [facility] | | | | | | MEDICAL | | | | | | CENTER - | | | | | | LABORATORY | | + + + + + + | Red Blood | 4.07 (L) | 4.30 - 5.70 | [facility] | | | Cells | | M/uL | [facility] | | | | | | MEDICAL | | | | | | CENTER - | | | | | | LABORATORY | | + + + + + + | Hemoglobin | 14.1 | 13.5 - 18.0 | [facility] | | | | | gm/dL | [facility] | | | | | | MEDICAL | | | | | | CENTER - | | | | | | LABORATORY | | + + + + + + | Hematocrit | 41.7 | 40.0 - 51.0 % | [facility] | | | | | | [facility] | | | | | | MEDICAL | | | | | | CENTER - | | | | | | LABORATORY | | + + + + + + | MCV | 102.6 (H) | 83.0 - 101.0 fL | [facility] | | | | | | [facility] | | | | | | MEDICAL | | | | | | CENTER - | | | | | | LABORATORY | | + + + + + + | MCH | 34.7 | 28.0 - 35.0 pg | [facility] | | | | | | [facility] | | | | | | MEDICAL | | | | | | CENTER - | | | | | | LABORATORY | | + + + + + + | MCHC | 33.9 | 32.0 - 36.0 | [facility] | | | | | g/dL | [facility] | | | | | | MEDICAL | | | | | | CENTER - | | | | | | LABORATORY | | + + + + + + | RDW-CV | 13.9 | <15.0 % | [facility] | | | | | | [facility] | | | | | | MEDICAL | | | | | | CENTER - | | | | | | LABORATORY | | + + + + + + | Platelet | 324 | 140 - 440 K/uL | [facility] | | | Count | | | [facility] | | | | | | MEDICAL | | | | | | CENTER - | | | | | | LABORATORY | | + + + + + + | % | 80.6 (H) | 45 - 75 % | [facility] | | | Neutrophils | | | [facility] | | | | | | MEDICAL | | | | | | CENTER - | | | | | | LABORATORY | | + + + + + + | % | 9.7 (L) | 20 - 45 % | [facility] | | | Lymphocytes | | | [facility] | | | | | | MEDICAL | | | | | | CENTER - | | | | | | LABORATORY | | + + + + + + | % Monocytes | 6.6 | 4 - 12 % | [facility] | | | | | | [facility] | | | | | | MEDICAL | | | | | | CENTER - | | | | | | LABORATORY | | + + + + + + | % | 2.4 | 0 - 5 % | [facility] | | | Eosinophils | | | [facility] | | | | | | MEDICAL | | | | | | CENTER - | | | | | | LABORATORY | | + + + + + + | % Basophils | 0.7 | 0 - 1 % | [facility] | | | | | | [facility] | | | | | | MEDICAL | | | | | | CENTER - | | | | | | LABORATORY | | + + + + + + | Absolute | 6.2 | 1.5 - 6.6 K/uL | [facility] | | | Neutrophils | | | [facility] | | | | | | MEDICAL | | | | | | CENTER - | | | | | | LABORATORY | | + + + + + + | Absolute | 0.7 | 0.6 - 3.2 K/uL | [facility] | | | Lymphocytes | | | [facility] | | | | | | MEDICAL | | | | | | CENTER - | | | | | | LABORATORY | | + + + + + + | Absolute | 0.5 | 0.0 - 1.0 K/uL | [facility] | | | Monocytes | | | [facility] | | | | | | MEDICAL | | | | | | CENTER - | | | | | | LABORATORY | | + + + + + + | Absolute | 0.2 | 0.0 - 0.4 K/uL | [facility] | | | Eosinophils | | | [facility] | | | | | | MEDICAL | | | | | | CENTER - | | | | | | LABORATORY | | + + + + + + | Absolute | 0.1 | 0.0 - 0.1 K/uL | [facility] | | | Basophils | | | [facility] | | | | | | MEDICAL | | | | | | CENTER - | | | | | | LABORATORY | | + + + + + + + + | Specimen | + + | | + + + + + + + | Performing | Address | City/State/Zipcode | Phone Number | | Organization | | | | + + + + + | [facility] | [address] | [place], [place] | [phone] | | [facility] | | [address] | | | - LABORATORY | | | | + + + + + | [facility] | [address] | [place], [place] | | | [facility] | | [id number] [place] [address] | | | - LABORATORY | | | | + + + + + Basic Metabolic Panel (05/19/2012 5:25 AM PST) + + + + + + | Component | Value | Ref Range | Performed | Pathologist | | | | | At | Signature | + + + + + + | Glucose | 126 (H) | 70 - 109 mg/dL | [facility] | [facility] | [facility] | [facility] | [facility] | [facility] | | | | | | [facility] - | | | | | | LABORATORY | | + + + + + + | Calcium | 8.0 (L) | 8.3 - 10.5 | [facility] | | | | | mg/dL | [facility] | | | | [facility] | [facility] | | | | | | C[facility] - | | | | | | LABORATORY | | + + + + + + | BUN | 15 | 7 - 18 mg/dL | [facility] | | | | | | [facility] | | | [facility] | | [facility] | | | | | | C[facility] - | | | | | | LABORATORY | | + + + + + + | Creatinine | 0.87 | 0.60 - 1.30 | [facility] | | | | | mg/dL | [facility] | | | [facility] | [facility] | | | | | | [facility] - | | | | | | LABORATORY | | + + + + + + | Estimated | >60Comment: For | >60 mL/min/A | [facility] | | | GFR | -Americans, | | [facility] | | | | please multiply the | | MEDICAL | | | | result by 1.210 | | CENTER - | | | | This is an estimated | | LABORATORY | | | | GFR and is based on a | | | | | | standard adult | | | | | | body mass (A=1.73m2) and | | | | | | serum creatinine | | | | + + + + + + | BUN/Creatin | 17.2 | 12 - 20 | [facility] | | | ine Ratio | | | [facility] | | | | | | [facility]ICAL | | | | | | CENTER - | | | | | | LABORATORY | | + + + + + + | Na | 135 (L) | 136 - 149 mEq/L | [facility] | | [facility] | | [facility] | | | [facility] | [facility] | | | | | | [facility] - | | | | | | LABORATORY | | + + + + + + | K | 4.0 | 3.5 - 5.1 mEq/l | [facility] | | | | | | [facility] | | | | | | [facility] | | | | | | C[facility] - | | | | | | LABORATORY | | + + + + + + | Cl | 103 | 98 - 109 mEq/l | [facility] | [facility] | | [facility] | [facility] | | | | | | C[facility] - | | | | | | LABORATORY | | + + + + + + | CO2 | 24 | 24 - 31 mEq/L | [facility] | [facility] | | | | [facility] | [facility] | | | | | | CENTER - | | | | | | LABORATORY | | + + + + + + | Anion Gap | 12.0 | 6.0 - 17.0 | [facility] | | [facility] | | | | | | [facility] - | | | | | | LABORATORY | | + + + + + + + + | Specimen | + + | | + + + + + + + | Performing | Address | City/State/Zipcode | Phone Number | | Organization | | | | + + + + + | [facility] | [address] | [place], [place] | [phone] | | [facility] | | [address] | | | - LABORATORY | | | | + + + + + | [facility] | [address] | [place], [place] | | | [facility] | | [id number] | | | - LABORATORY | | | | + + + + + Denae Bowser (05/18/2012 2:48 PM PST) + + + + + + | Component | Value | Ref Range | Performed | Pathologist | | | | | At | Signature | + + + + + + | QUANTIFERON | NEGATIVE | | [facility] | | | GOLD TB | | | [facility] | | | [facility] | [facility] | | | | | | CENTER - | | | | | | LABORATORY | | + + + + + + | Tuberculosi | 0.00Comment: This is a | <0.35 IU/mL | [facility] | | | s Antigen | qualitative test. The | | [facility] | | | Value | IU/mL value should not | | MEDICAL | | | (Ag-Nil) | be used to monitor | | CENTER - | | | | disease progression or | | LABORATORY | | | | response to therapy. | | | | | | Diagnosing or excluding | | | | | | tuberculosis disease and | | | | | | assessing the | | | | | | probability of LTBI | | | | | | require a combination of | | | | | | epicemiological, | | | | | | historical, medical and | | | | | | diagnostic findings that | | | | | | should be taken into | | | | | | account when | | | | | | interpreting | | | | | | QuantiFERON-TB results. | | | | | | Testing performed | | | | | | by: [facility] | | | | | | Laboratory, [address] | | | [address] | [address], | | | | | | [place] [address] | | | | + + + + + + + + | Specimen | + + | | + + + + + + + | Performing | Address | City/State/Zipcode | Phone Number | | Organization | | | | + + + + + | [facility] | [address] | [place], [place] | [phone] | | [facility] | | [address] | | | - LABORATORY | | | | + + + + + | [facility] | [address] | [place], [place] | | | [facility] | | [address] [place] [address] | | | - LABORATORY | | | | + + + + + COCCIDIOIDES ANTIBODY (05/18/2012 2:48 PM PST) + + + + + + | Component | Value | Ref Range | Performed | Pathologist | | | | | At | Signature | + + + + + + | Coccidioide | <1:2Comment: Reference | () | [facility] | | | s Ab by CF | range: <1:2 [facility] | | [facility] | | | | RANGE: <1:2 | | MEDICAL | | | | INTERPRETIVE CRITERIA: | | CENTER - | | | | | | LABORATORY | | | | <1:2 Antibody | | | | | | Not Detected | | | | | | > or = 1:2 | | | | | | Antibody Detected | | | | | | All serum titers > or | | | | | | = 1:2 should be | | | | | | considered evidence | | | | | | indicative of | | | | | | coccidioidomycosis, | | | | | | although titers of 1:2 | | | | | | and 1:4 should be | | | | | | confirmed by | | | | | | immunodiffusion testing. | | | | | | Titers exceeding 1:16 | | | | | | usually reflect | | | | | | disseminated disease. In | | | | | | general, higher | | | | | | titers are correlated | | | | | | with disease severity, | | | | | | and changes in serial | | | | | | titers are of | | | | | | prognostic value. A | | | | | | negative CF test does | | | | | | not, however, rule out | | | | | | the diagnosis. Only 70% | | | | | | of patients with | | | | | | cavitary disease are | | | | | | positive, and only 30% | | | | | | of patients with | | | | | | nodular disease are | | | | | | positive. This test | | | | | | was developed and its | | | | | | performance | | | | | | characteristics have | | | | | | been determined by [facility] | | | | | | [facility]. | | | | | | Performance | | | | | | characteristics refer to | | | | | | the analytical | | | | | | performance of the test. | | | | | | | | | | + + + + + + | Coccidioide | NegativeComment: | () | [facility] | | | s Ab by ID | REFERENCE RANGE: | | [facility] | | | | NEGATIVE | | MEDICAL | | | | INTERPRETIVE CRITERIA: | | CENTER - | | | | | | LABORATORY | | | | NEGATIVE: | | | | | | Antibody Not Detected | | | | | | | | | | | | POSITIVE: | | | | | | Antibody Detected | | | | | | The immunodiffusion | | | | | | (ID) procedure | | | | | | correlates both in | | | | | | sensitivity and clinical | | | | | | utility with the CF | | | | | | test. The ID test, | | | | | | which detects IgG | | | | | | directed to the "F" | | | | | | antigen, becomes | | | | | | positive within 4 weeks | | | | | | after infection and | | | | | | remains positive | | | | | | throughout clinically | | | | | | active disease. It is | | | | | | most useful in | | | | | | confirming the | | | | | | specificity of low CF | | | | | | titers, where line(s) | | | | | | of identity are formed | | | | | | with reference | | | | | | antisera. Positive ID | | | | | | reactions are diagnostic | | | | | | for | | | | | | coccidioidomycosis and | | | | | | usually indicate active | | | | | | or recent disease and | | | | | | remain detectable for | | | | | | up to 1 year | | | | | | thereafter. Testing | | | | | | Performed: [facility] | | | | | | Diagnostics, [id number] | | | | | | [facility], | | | | | | [place] [address] | | | | | | CLIA: [id number] | | | | + + + + + + + + | Specimen | + + | | + + + + + + + | Performing | Address | City/State/Zipcode | Phone Number | | Organization | | | | + + + + + | [facility] | [address] | [place] | [phone] | | [facility] | | [address] | | | - LABORATORY | | | | + + + + + | [facility] | [address] [facility] | [place], [place] | | | [facility] | | [address], [facility] | | | - LABORATORY | | | | + + + + + XR Chest AP Portable (05/18/2012 8:55 AM PST) + + | Specimen | + + | | + + + + + | Narrative | Performed At | + + + | [facility] | [facility] | | Department [address] [facility], [place] | [facility] | | [ rep ct street[address]] [ rep ct [facility] [place] | | [facility]] Signed | - IMAGING | | | | | Patient Name: RON SHELDON V Physician: | | | [id number].[id number] : 1935 Age: 77 Sex: M Unit #: [id number] | | | Exam Date: 05/17/12 Location: [address] [place] [address] | | | Report #: [id number] Page: | | | %(RAD)RES..mtdd.print.filter("pg") of %(RAD) | | | RES..mtdd.print.filter("tpg") | | | | | | Accession Number: [id number] | | | PORTABLE CHEST CLINICAL HISTORY: PNEUMONIA. | | | FINDINGS: Heart size is normal. There is patchy air space | | | density in the perihilar regions bilaterally. This is accompanied | | | by some coarse linear densities. Peripheral lungs appear spared. A | | | scant amount of fluid is present adjacent to the horizontal | | | fissure. No effusions are present. No actual mass | | | densities are seen, but they could be obscured by the air space | | | consolidation. IMPRESSION: 1. PATCHY BILATERAL | | | PERIHILAR DENSITIES WITH A SOMEWHAT COARSE PATTERN. THIS APPEARANCE | | | WOULD BE NONSPECIFIC AND DIFFERENTIAL CONSIDERATIONS WOULD INCLUDE | | | ATYPICAL BILATERAL PNEUMONIA, PULMONARY EDEMA , CRYPTOGENIC | | | ORGANIZING PNEUMONIA OR BRONCHOALVEOLAR CARCINOMA. INTERVAL FOLLOWUP | | | AND CT ASSESSMENT MAY BE HELPFUL FOR FURTHER DEFINITION. | | | Dictated Date/Time: 05/18/2012 08:55 Transcribed Date/Time: | | | 05/18/2012 08:58 Principal Android Developer: | | | <<Signature on File>> | | | | | | Tan Keenan MD05/18/12 1402 <Electronically signed by | | | Tan Keenan MD> Tan Keenan MD 05/18/12 | | | 0855 Principal Android Developer: [email or web address]/27/12 0858 | | | | | + + + + + + + + | Performing | Address | City/State/Zipcode | Phone Number | | Organization | | | | + + + + + | [facility] | [address] | [place] | [phone] | | [facility] | | [address] | | | - IMAGING | | | | + + + + + Basic Metabolic Panel (05/18/2012 6:43 AM PST) + + + + + + | Component | Value | Ref Range | Performed | Pathologist | | | | | At | Signature | + + + + + + | Glucose | 130 (H) | 70 - 109 mg/dL | [facility] | | | | | | [facility] | | | | | | MEDICAL | | | | | | CENTER - | | | | | | LABORATORY | | + + + + + + | Calcium | 8.0 (L) | 8.3 - 10.5 | [facility] | | | | | mg/dL | [facility] | | | | | | MEDICAL | | | | | | CENTER - | | | | | | LABORATORY | | + + + + + + | BUN | 12 | 7 - 18 mg/dL | [facility] | | | | | | [facility] | | | | | | MEDICAL | | | | | | CENTER - | | | | | | LABORATORY | | + + + + + + | Creatinine | 0.86 | 0.60 - 1.30 | [facility] | | | | | mg/dL | [facility] | | | | | | MEDICAL | | | | | | CENTER - | | | | | | LABORATORY | | + + + + + + | Estimated | >60Comment: For | >60 mL/min/A | [facility] | | | GFR | -Americans, | | [facility] | | | | please multiply the | | MEDICAL | | | | result by 1.210 | | CENTER - | | | | This is an estimated | | LABORATORY | | | | GFR and is based on a | | | | | | standard adult | | | | | | body mass (A=1.73m2) and | | | | | | serum creatinine | | | | + + + + + + | BUN/Creatin | 14.0 | 12 - 20 | [facility] | | | ine Ratio | | | [facility] | | | | | | MEDICAL | | | | | | CENTER - | | | | | | LABORATORY | | + + + + + + | Na | 138 | 136 - 149 mEq/L | [facility] | | | | | | [facility] | | | | | | MEDICAL | | | | | | CENTER - | | | | | | LABORATORY | | + + + + + + | K | 3.9 | 3.5 - 5.1 mEq/l | [facility] | | | | | | [facility] | | | | | | MEDICAL | | | | | | CENTER - | | | | | | LABORATORY | | + + + + + + | Cl | 105 | 98 - 109 mEq/l | [facility] | | | | | | [facility] | | | | | | MEDICAL | | | | | | CENTER - | | | | | | LABORATORY | | + + + + + + | CO2 | 24 | 24 - 31 mEq/L | [facility] | | | | | | [facility] | | | | | | MEDICAL | | | | | | CENTER - | | | | | | LABORATORY | | + + + + + + | Anion Gap | 12.9 | 6.0 - 17.0 | [facility] | | | | | | [facility] | | | | | | MEDICAL | | | | | | CENTER - | | | | | | LABORATORY | | + + + + + + + + | Specimen | + + | | + + + + + + + | Performing | Address | City/State/Zipcode | Phone Number | | Organization | | | | + + + + + | [facility] | [address] | [place], [place] | [phone] | | [facility] | | [address] | | | - LABORATORY | | | | + + + + + | [facility] | [address] | [place] | | | [facility] | | [id number] [place] [address] | | | - LABORATORY | | | | + + + + + B Type Natriuretic Peptide (05/18/2012 6:43 AM PST) + + + + + + | Component | Value | Ref Range | Performed | Pathologist | | | | | At | Signature | + + + + + + | BNP | 57Comment: Testing | <100 pg/mL | [facility] | | | | performed on the [facility] | | [facility] | | | | [facility] | | MEDICAL | | | | Analyzer. | | CENTER - | | | | | | LABORATORY | | + + + + + + + + | Specimen | + + | | + + + + + + + | Performing | Address | City/State/Zipcode | Phone Number | | Organization | | | | + + + + + | [facility] | [address] | [place] | [phone] | | [facility] | | [address] | | | - LABORATORY | | | | + + + + + | [facility] | [address] | [place] | | | [facility] | | [address] | | | - LABORATORY | | | | + + + + + CBC with Differential (05/18/2012 4:39 AM PST) + + + + + + | Component | Value | Ref Range | Performed | Pathologist | | | | | At | Signature | + + + + + + | MANUAL | NO | | [facility] | | | DIFFERENTIA | | | [facility] | | | L ? | | | MEDICAL | | | | | | CENTER - | | | | | | LABORATORY | | + + + + + + | White Blood | 7.1 | 4.0 - 11.0 K/uL | [facility] | | | Cells | | | [facility] | | | | | | MEDICAL | | | | | | CENTER - | | | | | | LABORATORY | | + + + + + + | Red Blood | 4.08 (L) | 4.30 - 5.70 | [facility] | | | Cells | | M/uL | [facility] | | | | | | MEDICAL | | | | | | CENTER - | | | | | | LABORATORY | | + + + + + + | Hemoglobin | 14.5 | 13.5 - 18.0 | [facility] | | | | | gm/dL | [facility] | | | | | | MEDICAL | | | | | | CENTER - | | | | | | LABORATORY | | + + + + + + | Hematocrit | 41.5 | 40.0 - 51.0 % | [facility] | | | | | | [facility] | | | | | | MEDICAL | | | | | | CENTER - | | | | | | LABORATORY | | + + + + + + | MCV | 101.8 (H) | 83.0 - 101.0 fL | [facility] | | | | | | [facility] | | | | | | MEDICAL | | | | | | CENTER - | | | | | | LABORATORY | | + + + + + + | MCH | 35.6 (H) | 28.0 - 35.0 pg | [facility] | | | | | | [facility] | | | | | | MEDICAL | | | | | | CENTER - | | | | | | LABORATORY | | + + + + + + | MCHC | 34.9 | 32.0 - 36.0 | [facility] | | | | | g/dL | [facility] | | | | | | MEDICAL | | | | | | CENTER - | | | | | | LABORATORY | | + + + + + + | RDW-CV | 14.0 | <15.0 % | [facility] | | | | | | [facility] | | | | | | MEDICAL | | | | | | CENTER - | | | | | | LABORATORY | | + + + + + + | Platelet | 311 | 140 - 440 K/uL | [facility] | | | Count | | | [facility] | | | | | | MEDICAL | | | | | | CENTER - | | | | | | LABORATORY | | + + + + + + | % | 82.3 (H) | 45 - 75 % | [facility] | | | Neutrophils | | | [facility] | | | | | | MEDICAL | | | | | | CENTER - | | | | | | LABORATORY | | + + + + + + | % | 9.4 (L) | 20 - 45 % | [facility] | | | Lymphocytes | | | [facility] | | | | | | MEDICAL | | | | | | CENTER - | | | | | | LABORATORY | | + + + + + + | % Monocytes | 6.7 | 4 - 12 % | [facility] | | | | | | [facility] | | | | | | MEDICAL | | | | | | CENTER - | | | | | | LABORATORY | | + + + + + + | % | 1.4 | 0 - 5 % | [facility] | | | Eosinophils | | | [facility] | | | | | | MEDICAL | | | | | | CENTER - | | | | | | LABORATORY | | + + + + + + | % Basophils | 0.2 | 0 - 1 % | [facility] | | | | | | [facility] | | | | | | MEDICAL | | | | | | CENTER - | | | | | | LABORATORY | | + + + + + + | Absolute | 5.8 | 1.5 - 6.6 K/uL | [facility] | | | Neutrophils | | | [facility] | | | | | | MEDICAL | | | | | | CENTER - | | | | | | LABORATORY | | + + + + + + | Absolute | 0.7 | 0.6 - 3.2 K/uL | [facility] | | | Lymphocytes | | | [facility] | | | | | | MEDICAL | | | | | | CENTER - | | | | | | LABORATORY | | + + + + + + | Absolute | 0.5 | 0.0 - 1.0 K/uL | [facility] | | | Monocytes | | | [facility] | | | | | | MEDICAL | | | | | | CENTER - | | | | | | LABORATORY | | + + + + + + | Absolute | 0.1 | 0.0 - 0.4 K/uL | [facility] | | | Eosinophils | | | [facility] | | | | | | MEDICAL | | | | | | CENTER - | | | | | | LABORATORY | | + + + + + + | Absolute | 0.0 | 0.0 - 0.1 K/uL | [facility] | | | Basophils | | | [facility] | | | | | | MEDICAL | | | | | | CENTER - | | | | | | LABORATORY | | + + + + + + + + | Specimen | + + | | + + + + + + + | Performing | Address | City/State/Zipcode | Phone Number | | Organization | | | | + + + + + | [facility] | [address] | [place], [place] | [phone] | | [facility] | | [address] | | | - LABORATORY | | | | + + + + + | [facility] | [address] | [place], [place] | | | [facility] | | [id number] [place] [address] | | | - LABORATORY | | | | + + + + + ROSSANA Saunders (05/18/2012 4:39 AM PST) + + + + + + | Component | Value | Ref Range | Performed | Pathologist | | | | | At | Signature | + + + + + + | Anti-Neutro | <1:20Comment: Reference | () | [facility] | | | niharika | Range: <1:20 Testing | | [facility] | | | Cytoplasmic | Performed: [facility], [address] | | MEDICAL | | | Antibody | [place] | | CENTER - | | | | [address] CLIA: [id number] | | LABORATORY | | | | | | | | + + + + + + + + | Specimen | + + | | + + + + + + + | Performing | Address | City/State/Zipcode | Phone Number | | Organization | | | | + + + + + | [facility] | [address] | [place] | [phone] | | [facility] | | [address] | | | - LABORATORY | | | | + + + + + | [facility] | [address] | [place] | | | [facility] | | [address], [facility] | | | - LABORATORY | | | | + + + + + Loreto Matos Reflex (05/18/2012 4:39 AM PST) + + + + + + | Component | Value | Ref Range | Performed | Pathologist | | | | | At | Signature | + + + + + + | SEMAJ | NegativeComment: A | NEG | [facility] | | | | multiplex screen for 11 | | [facility] | | | | autoantibodies (dsDNA, | | MEDICAL | | | | Sm, Ribosomal P, | | CENTER - | | | | Chromatin, [employer] SUPERVISOR, Sm [employer]PERVISOR, | | LABORATORY | | | | Scl-70, Centromere B, | | | | | | SSA, SSB and Desiree-1) was | | | | | | performed and no | | | | | | autoantibodies were | | | | | | detected. Testing | | | | | | Performed: [facility], [address] | | | | | [place], [place] | | | | | | [address] CLIA: [id number] | | | | | | | | | | + + + + + + + + | Specimen | + + | | + + + + + + + | Performing | Address | City/State/Zipcode | Phone Number | | Organization | | | | + + + + + | [facility] | [address] | [place] | [phone] | | [facility] | | [address] | | | - LABORATORY | | | | + + + + + | [facility] | [address] | [place], [place] | | | [facility] | | [address] | | | - LABORATORY | | | | + + + + + TSH (05/18/2012 4:39 AM PST) + + + + + + | Component | Value | Ref Range | Performed | Pathologist | | | | | At | Signature | + + + + + + | TSH | 1.10Comment: Testing | 0.34 - 5.60 | [facility] | | | | performed on the Nate | uIU/mL | [facility] | | | | [facility] | | MEDICAL | | | | Analyzer. | | CENTER - | | | | | | LABORATORY | | + + + + + + + + | Specimen | + + | | + + + + + + + | Performing | Address | City/State/Zipcode | Phone Number | | Organization | | | | + + + + + | [facility] | [address] | [place] | [phone] | | [facility] | | [address] | | | - LABORATORY | | | | + + + + + | [facility] | [address] | [place] | | | [facility] | | [address], [facility] | | | - LABORATORY | | | | + + + + + UA, Microscopic, Reflex (05/17/2012 11:39 PM PST) + +-------+ + + + | Component | Value | Ref Range | Performed | Pathologist | | | | | At | Signature | + +-------+ + + + | White Blood | 0-2 | 0 - 1 /hpf | [facility] | | | Cells, | | | [facility] | | | Urine | | | MEDICAL | | | | | | CENTER - | | | | | | LABORATORY | | + +-------+ + + + | Red Blood | 2-4 | 0 - 4 /hpf | [facility] | | | Cells, | | | [facility] | | | Urine | | | MEDICAL | | | | | | CENTER - | | | | | | LABORATORY | | + +-------+ + + + | Squamous | NONE | FEW /hps | [facility] | | | Epithelial | | | [facility] | | | Cells, | | | MEDICAL | | | Urine | | | CENTER - | | | | | | LABORATORY | | + +-------+ + + + | Bacteria, | NONE | NONE /hpf | [facility] | | | Urine | | | [facility] | | | | | | MEDICAL | | | | | | CENTER - | | | | | | LABORATORY | | + +-------+ + + + | Culture | NO | | [facility] | | | Indicated | | | [facility] | | [...] | + + + + + | [facility] | [address] | [place] | [phone] | | [facility] | | [address] | | | - LABORATORY | | | | + + + + + | [facility] | [address] | [place], [place] | | | [facility] | | [address] | | | - LABORATORY | | | | + + + + + Urinalysis, Reflex Microscopic and/or Culture (05/17/2012 11:39 PM PST) + + + + + + | Component | Value | Ref Range | Performed | Pathologist | | | | | At | Signature | + + + + + + | COLLECTION | VOID | | [facility] | | | METHOD 1 | | | [facility] | | | | | | MEDICAL | | | | | | CENTER - | | | | | | LABORATORY | | + + + + + + | Color, | YELLOW | | [facility] | | | Urine | | | [facility] | | | | | | MEDICAL | | | | | | CENTER - | | | | | | LABORATORY | | + + + + + + | Clarity, | CLEAR | | [facility] | | | Urine | | | [facility] | | | | | | MEDICAL | | | | | | CENTER - | | | | | | LABORATORY | | + + + + + + | Glucose, | NEGATIVE | NEGATIVE mg/dL | [facility] | | | Urine | | | [facility] | | | | | | MEDICAL | | | | | | CENTER - | | | | | | LABORATORY | | + + + + + + | Bilirubin, | NEGATIVE | NEGATIVE | [facility] | | | Urine | | | [facility] | | | | | | MEDICAL | | | | | | CENTER - | | | | | | LABORATORY | | + + + + + + | Ketones, | NEGATIVE | NEGATIVE | [facility] | | | Urine | | | [facility] | | | | | | MEDICAL | | | | | | CENTER - | | | | | | LABORATORY | | + + + + + + | Specific | 1.015 | 1.001 - 1.030 | [facility] | | | Leonardo, | | | [facility] | | | Urine | | | MEDICAL | | | | | | CENTER - | | | | | | LABORATORY | | + + + + + + | Blood, | TRACE-INTACT | NEGATIVE | [facility] | | | Urine | | | [facility] | | | | | | MEDICAL | | | | | | CENTER - | | | | | | LABORATORY | | + + + + + + | pH, Urine | 6.5 | 5.0 - 8.0 | [facility] | | | | | | [facility] | | | | | | MEDICAL | | | | | | CENTER - | | | | | | LABORATORY | | + + + + + + | Protein, | NEGATIVE | NEGATIVE mg/dL | [facility] | | | Urine | | | [facility] | | | | | | MEDICAL | | | | | | CENTER - | | | | | | LABORATORY | | + + + + + + | Urobilinoge | NORMAL | NORMAL EU/dL | [facility] | | | n, Urine | | | [facility] | | | | | | MEDICAL | | | | | | CENTER - | | | | | | LABORATORY | | + + + + + + | Nitrite, | NEGATIVE | NEGATIVE | [facility] | | | Urine | | | [facility] | | | | | | MEDICAL | | | | | | CENTER - | | | | | | LABORATORY | | + + + + + + | Leukocyte | NEGATIVE | NEGATIVE | [facility] | | | Esterase, | | | [facility] | | | Urine | | | MEDICAL | | | | | | CENTER - | | | | | | LABORATORY | | + + + + + + | MICROSCOPIC | YES | | [facility] | | | ? | | | [facility] | | | | | | MEDICAL | | | | | | CENTER - | | | | | | LABORATORY | | + + + + + + + + | Specimen | + + | | + + + + + + + | Performing | Address | City/State/Zipcode | Phone Number | | Organization | | | | + + + + + | [facility] | [address] | [place] | [phone] | | [facility] | | [address] | | | - LABORATORY | | | | + + + + + | [facility] | [address] | [place] | | | [facility] | | [address], [facility] | | | - LABORATORY | | | | + + + + + Respiratory Syncytial Virus, Screen (05/17/2012 9:41 PM PST) + + + + + + | Component | Value | Ref Range | Performed | Pathologist | | | | | At | Signature | + + + + + + | RSV | NEGATIVEComment: | | [facility] | | | Antigen, | INTERPRETATION: | | [facility] | | | Rapid | NEGATIVE: Infection | | MEDICAL | | | | with RSV cannot be ruled | | CENTER - | | | | out. Antigen level | | LABORATORY | | | | may be below detection | | | | | | limit of test. | | | | | | POSITIVE: A positive | | | | | | result may occur in the | | | | | | absence of viable | | | | | | virus. @INTERNAL | | | | | | CONTROL: PINK CONTROL | | | | | | LINE APPEARS? YES | | | | + + + + + + + + | Specimen | + + | | + + + + + + + | Performing | Address | City/State/Zipcode | Phone Number | | Organization | | | | + + + + + | [facility] | [address] | [place] | [phone] | | [facility] | | [address] | | | - LABORATORY | | | | + + + + + | [facility] | [address] | [place] | | | [facility] | | [address], [facility] | | | - LABORATORY | | | | + + + + + Influenza A and B Ag, EIA (05/17/2012 9:41 PM PST) + + + + + + | Component | Value | Ref Range | Performed | Pathologist | | | | | At | Signature | + + + + + + | INFLUENZA | Presumptive | | [facility] | | | AB | NEGATIVEComment: | | [facility] | | | | Presumptive NEGATIVE for | | MEDICAL | | | | Influenza A and | | CENTER - | | | | Influenza B. | | LABORATORY | | | | INTERPRETATION: | | | | | | NEGATIVE: Negative | | | | | | tests can occur from | | | | | | inadequate sample | | | | | | collection or levels | | | | | | of antigen which fall | | | | | | below the limits of | | | | | | detection of the test. | | | | | | POSITIVE: A positive | | | | | | result may occur in the | | | | | | absence of viable | | | | | | virus. @INTERNAL QC | | | | | | OK?: PINK CONTROL LINE | | | | | | APPEARS? YES | | | | + + + + + + + + | Specimen | + + | | + + + + + + + | Performing | Address | City/State/Zipcode | Phone Number | | Organization | | | | + + + + + | [facility] | [address] | [place] | [phone] | | [facility] | | [id number] | | | - LABORATORY | | | | + + + + + | [facility] | [address] | [place], [place] | | | [facility] | | [id number], [facility] | | | - LABORATORY | | | | + + + + + Culture, MRSA (05/17/2012 6:53 PM PST) + + | Specimen | + + | | + + + + + + + | Performing | Address | City/State/Zipcode | Phone Number | | Organization | | | | + + + + + | [facility] | [address] | [place], [place] | [phone] | | [facility] | | [address] | | | - LABORATORY | | | | + + + + + documented in this encounter Visit Diagnoses Not on filedocumented in this encounter
--- OUTSIDE RECORDS SUMMARY | ~2020-01-23 | XMS | Encounter Summary ---
Demographics + + + | Address | [address] | | | [place] [address] | + + + | Home Phone | | + + + | Preferred Language | Unknown | + + + | Marital Status | | + + + | Congregation Affiliation | 1013 | + + + | Race | Unknown | + + + | Ethnic Group | Unknown | + + + Author + + + | Author | [facility] | | | and [place] | + + + | Organization | [facility] | | | and [...] | | | | | [place] [address] | | + + + + + | Melissa Daley | ECON | [address] | | | | | [place] [address] | | + + + + + Care Team Providers + +------+ + | Care Sole Filler Name | Role | Phone | + +------+ + | Jona Deal MD | PCP | | + +------+ + Encounter Details +--------+ + + + + | Date | Type | Department | Care Team | Description | +--------+ + + + + | 07/30/ | Orders Only | [facility] | [place], | Other specified | | 2012 | | PULMONARY [address] | Carmelita Penny MD | alveolar and | | | | [place], | | parietoalveolar | | | | [place] [address] | | pneumonopathies | | | | [phone] | | (HCC) (Primary Dx); | | | | | | Bronchiectasis | | | | | | without acute | | | | | | exacerbation (HCC); | | | | | | Hypoxemia [...] | | 2020 | Visit | | [address] | | | | | | [place] | | | | | | [address] | | | | | | | | +--------+---------+ + + + + + +--------+ + + | Name | Type | Priori | Associated Diagnoses | Order Schedule | | | | ty | | | + + +--------+ + + | Oxygen Therapy | Respiratory | Routin | Other specified | 1 Occurrences | | | Care | e | alveolar and | starting 07/30/2012 | | | | | parietoalveolar | until 07/30/2013 | | | | | pneumonopathies | | | | | | (HCC) | | | | | | Bronchiectasis | | | | | | without acute | | | | | | exacerbation ([facility]) | | | | | | Hypoxemia | | + + +--------+ + + documented as of this encounter Visit Diagnoses + + | Diagnosis | + + | 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
--- OUTSIDE RECORDS SUMMARY | ~2020-01-23 | XMS | Encounter Summary ---
Demographics + + + | Address | [address] | | | [place] [address] | + + + | Home Phone [...] | | | | | [place] [address] | | + + + + + | Melissa Daley | ECON | [address] | | | | | [place] [address] | | + + + + + Care Team Providers + +------+ + | Care Receiver/Laborer Name | Role | Phone | + [...] | | | | Procedures | | [place] | | | | | [place] | | [address] Phone: | | | | | CYSTO/URETER | | [phone] | | | | | O | | Fax: | | | | | W/LITHOTRIPS | | [phone] | | | | | Y &LIZ [...] + + | 01/03/ | Hospital | [facility] | Kiko Garrido, | Left ureteral | | 2019 | Encounter | [facility] | [address] | calculus; | | | | [address] | [place], [place] | Obstruction of left | | | | [place], [place] | [address] | ureter; | | | | [address] | | Hydronephrosis, left | | | | [phone] | | | +--------+ + + + [...] + + + | Blood Pressure | 149/84 | 01/04/2020 6:21 PM | | | | | PDT | | + + + + + | Pulse | 90 | 01/04/2020 6:21 PM | | | | | PDT | | + + + + + | Temperature | 36.4 C (97.5 F) | 01/04/2020 3:49 PM | | | | | PDT | | + + + + + | Respiratory Rate | 18 | 01/04/2020 6:21 PM | | | | | PDT | | + + + + + | Oxygen Saturation | 96% | 01/04/2020 6:21 PM | | | | | PDT | | + + + + + | Inhaled Oxygen | - | - | | | Concentration | | | | + + + + + | Weight | 109.4 kg (241 lb 2.9 | 01/04/2020 12:42 PM | | | | oz) | PDT | | + + + + + | Height | 177.8 cm (5' 10") | 01/04/2020 12:42 PM | | | | | PDT | | + + + + + | Body Mass Index | 34.61 | 01/04/2020 12:42 PM | | | | | PDT | | + + + + + documented in this encounter Discharge Instructions Instructions Kiko Garrido MD - 01/04/2020DISCHARGE INSTRUCTIONS URINARY TRACT STONE SURGERY including: URETEROSCOPY LASER LITHOTRIPSY URETERAL STENT PLACEMENT Activity: Light for 1-2 days. Walk frequently as tolerated. Gradually return to normal activitie s as tolerated. Best to avoid intercourse for 5-7 days. Preferable to avoid heavy lifting or straining for 5-7 days. Diet: Clear liquids until nausea passes, then return to normal diet as tolerated. Fluids are encouraged to help flush blood out of your urinary tract. Drink 8 glasses of fluid a day until urine is free of blood. Pain pills can cause constipation. Use a laxative of your choice if necessary. Pain and Comfort: Bloody urine is common and will generally clear up within several days, but can last tejal jigar. Slight burning on urination may occur. Urinary urgency and frequency is common after this type of surgery. Use pain medication as directed. Take Tylenol for less severe pain. Do not take Aspirin for 72 hours after your surgery, unless instructed differently. Additional Instructions: You may shower at any time. If you have a stent, sometimes the stent may be bothersome, and may cause discomfort in your back when voiding. Follow up: Call Dr Garrido's office ([phone]) to set up your follow-up appointment or other arr angements as appropriate. Call YOUR UROLOGIST'S office for: Unremitting very heavy bright red bleeding and/or large volume of clots when urinating, that is worsening despite rest and pushing oral fluids. Inability to urinate. Elevated fever over 101 F. Frequent unremitting nausea/vomiting. Severe pain not relieved by rest or prescribed pain medication. If you are unable to reach your doctor at the above number, call the answering service at (after hours and weekends). If you have received sedation / an anesthetic today, DO NOT drive a vehicle, use alcoholic beverages, sign legal documents, take public transportation alone or care for a dependent pe rson for the next 24 hours. Also, you should not drive until you are off of all narcotic pa in medications and can move your legs easily without pain. Stent: You do have a ureteral stent in on your left side. If you do have a stent, please review the following: DO NOT CUT OR TRIM THE SUTURE EXITING THE URETHRA, IT IS ATTACHED TO THE STENT What is a Stent? A stent is a soft silicone tube placed in your ureter (the tube from your kidney to your bl adder). It is used to facilitate the passage of urine and sometimes kidney stone fragments f rom your kidney. How does it feel? The following symptoms are normal: 1. Pressure or mild irritation in your bladder area. 2. Urgency to urinate. 3. Occasional discomfort in the kidney before and after you empty your bladder. 4. Blood in the urine is common and will generally clear up within several days but can las t longer. 5. Sexual activity is safe while the stent is in place, though it may be uncomfortable for you. These symptoms go away after the removal of your stent. Some patients have no symptoms at a ll, while others are quite limited by the stent. When is it removed? Stent removal is usually done within 1-2 weeks after insertion. If you have a suture exiti ng the urethra, the urologist will use this to extract the stent. If there is no suture att ached to the stent, stent removal involves placing numbing jelly into the urethra, and then using a small scope to grab and extract the stent. The entire procedure usually takes less than one minute. The stent cannot remain indwelling longer than 6 months. String? If there is a string or thread tied to the stent that is visible, DO NOT CUT OR PULL THE ST RING. If it disappears, do not worry about it. When the doctor is ready to remove the stent, this string will be used to help pull it out. documented in this encounter Medications at Time of Discharge [...] 1 capsule by | | 0 | // | | | (FLOMAX) 0.4 mg CAPS [...] documented as of this encounter H&P Notes Kiko Garrido MD - 01/04/2020 2:[facility] PM [facility] INTERIM HISTORY AND PHYSICAL UPDATE Pt. Name/Age/: Ron Daley 84 y.o. 1935 Date of admission: 01/04/2020 The most current H&P was reviewed. The patient was reexamined. Re-evaluation of the patie nt confirms the necessity for the scheduled procedure. No change has occurred in the patien t s condition since the H&P was completed less than 30 days ago. I have again today verif ied that the patient has a clear understanding of the treatment options, the selected proced ure, the potential benefits and risks, and that there are no additional questions at this ti me. Prescription monitoring program web site was reviewed. Patient was given appropriate couns eling. Electronically signed by: Kiko Garrido MD, 01/04/2020 2:01 PM PDT [facility] ttbritni, Kiko Gomez MD - 12/26/2019 1:00 PM PDT HPI Ron Daley is a 84 y.o. male referred by Bunny Corcoran MD Today, 12/26/2019, Ron presents for a follow up for nephrolithiasis. Ron was transferred from [facility] on 12/15/2019 with an obstructive proxima l left ureteral calculus. He underwent emergent left ureteral stent placement on 12/15/2019. He was also found at that time to have acute kidney injury with chronicity of chronic kidne y disease of unclear duration. Ron reports that he has done very well since his surgical procedure. He states he is havi ng no pain, but is sleeping poorly. He has urinary frequency every 2 hours. He denies any dysuria or hematuria. He does note bladder urge and urinary frequency but den ies any bladder spasm or urinary incontinence. He was recently seen in the emergency department at [facility] on 12/20/2019 with compla ints of constipation. He states this was treated with MiraLax and symptoms have improved. He states that when he went to the emergency room he was having rectal spasms. He denies any diarrhea. He denies any hematochezia or melena. He denies any renal colic. He is not having any pain with voiding. He denies any weight loss. He denies any cough or chest pain or hemoptysis. He does have ch ronic dyspnea on exertion. 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 He has had prior history of kidney stones by Dr. Verdugo. In the past, he reports that multi ple tests were performed, but the underlying cause of his stone disease was apparently not d iscovered. He does not smoke. He is accompanied today to the office by his daughter Kaite. I spent in excess of 25 minutes with Ron and his daughter today, almost all of this time spent in counseling regarding his nephrolithiasis and obstructing stone and treatment option s available including non-treatment. Past Medical History: Diagnosis Date Acute respiratory [...] STENT; Surgeon: Kiko Garrido MD; Locat ion: [facility] MAIN OR Kidney Stones Removed KNEE JOINT REPLACEMENT Left 1991 SHOULDER SURGERY x2 TONSILLECTOMY TOTAL KNEE ARTHROPLASTY Right 1995 Outpatient Encounter Medications as of 12/26/2019 Medication Sig Dispense Refill albuterol (VENTOLIN HFA) [...] Take 40 mg by mouth Daily. 0 prednisoLONE (PRED FORTE) 1% ophthalmic suspension prednisolone acetate 1 % eye drops,s uspension having left cataract surgery 10/30/15 tamsulosin (FLOMAX) 0.4 mg CAPS take 1 capsule by mouth at bedtime timolol maleate (TIMOPTIC) 0.5% ophthalmic solution valsartan (DIOVAN) 160 mg tablet No facility-administered encounter medications on file as of 12/26/2019. Allergies Allergen Reactions Demerol [Meperidine] Iodine IV [...] Drug use: No PHYSICAL EXAM Vitals: BP 142/80 | Pulse 68 | Resp 24 | Ht 1.778 m (5' 10") | Wt 109.3 kg (240 lb 15.4 oz) | BMI 34.57 kg/m General: Awake, alert, in no acute distress, Speech is fluent, and Appears to be stated age . Neck: Supple and no lymphadenopathy or no thyromegaly. Lungs Normal respiratory effort, no wheezing, no stridor, no tachypnea, and Clear to auscul tation bilaterally. Chest: No rib or bony tenderness. Heart: Regular rate and rhythm without murmurs rubs or gallops. Back: No CVA tenderness. Abdomen: Soft, nontender, nondistended, no hepatosplenomegaly, No masses, No guarding; hira gn, Bladder nondistended., and No flank tenderness.. Extremities: Hips and long bones nontender to fist percussion and warm and dry, perfused, a nd 1+ ankle edema present bilaterally. Surgical scars are well healed over each knee region. Neurological: Awake, alert, oriented x3 and he wears hearing aids. He is reported to have d ementia, but answers questions appropriately. He uses a walker for assistance in ambulation. Psychiatric: Mood and affect are normal and Normal judgment. Skin Warm and dry and no erythematous rash. Groin: No mass. and No lymphadenopathy. Genitalia: No penile lesion, Normal in appearance., Scrotum is supple and nonerythematous w ith benign contents, and No testicular or epididymal mass, nodule, lesion, swelling, or tend erness. DIAGNOSTIC DATA: Lab Results Component Value Date CREA 0.96 12/26/2019 BUN 16 12/26/2019 NA 140 12/26/2019 K 3.4 12/26/2019 CL 104 12/26/2019 CO2 28 12/26/2019 Lab Results Component Value Date CREA 0.96 12/26/2019 EGFR >60 04/30/2014 Lab Results Component Value Date CALCIUM 9.0 12/26/2019 Lab Results Component Value Date ALT 25 04/30/2014 AST 19 04/30/2014 ALKPHOS 63 05/23/2012 BILITOT 1.4 04/30/2014 Lab Results Component Value Date WBC 7.0 [...] SQUAMEPIUA 2-5 (A) 12/26/2019 BACTERIAUA Negative 12/26/2019 KUB 12/22/2019: CT imaging 12/20/2019 at [facility] demonstrates "moderate left hydronephrosis and prox imal hydroureter despite the presence of a stent. The previously demonstrated calcification remains present in the proximal ureter. The urinary bladder contains at least 450 mL of ur ine. The rectum is distended and packed with stool." IMPRESSION: 1. Obstructing 11 x 6 mm left proximal ureteral calculus. Doing well status post left urete ral stent placement 12/15/2019. 2. Left hydronephrosis. 3. Chronic kidney disease. Chronicity is unclear. His most recent GFR is 58. 4. Dementia. 5. Diabetes mellitus. 6. Recurrent nephrolithiasis, reportedly calcium oxalate. 7. Pedal edema. PLAN: I reviewed with Ron his laboratory and imaging findings. We discussed treatment options for his ureteral calculus. We discussed the potential compli cations associated with surgical therapy. I gave Ron a pamphlet describing kidney stones and the various treatment options availabl e, which we reviewed together. We discussed performing ESWL vs ureteroscopy with laser lith otripsy vs PCNL (percutaneous nephrostolithotomy) (not recommended) vs seeking a second opin ion vs doing nothing. After a lengthy discussion, he elects to proceed with ureteroscopy with laser lithotripsy. The risks, benefits, and alternatives of cystoscopy, and left ureteroscopy with laser litho tripsy (and possible stone extraction), and possible left ureteral stent replacement are dis cussed with Ron in detail. I told him that this procedure may not render him stone free, necessitating additional procedures in the future. Risks are to include, but are not limited to bleeding, pain, infection, failure of the proc edure, inability to retrieve or remove or fragment the stone, failure to diagnose, ureteral injury, ureteral perforation, ureteral avulsion with its severe sequelae of damage to the ki dney or need for subsequent surgical corrective procedures, potential need for additional pr ocedures, inherent irritability and discomfort associated with a ureteral stent, inherent ri sks of any surgical procedure and anesthesia including DVT, PE, TN, CVA, and even . Ron indicates his understanding, and indicates a desire to proceed as outlined. No guara ntees are given or implied. A surgical date is chosen. Ron is given appropriate written and verbal preoperative instr uctions. Elements of kidney stone prevention diet are reinforced. Ron will continue his regular and customary care and followup with his primary care provi kanu. I asked Ron to notify me immediately if he should experience any difficulties with voidin g or if he has any questions or concerns or any problems whatsoever. This document was generated in part using [employer]. Sometimes wrong word or sound-alike sub stitutions may have occurred due to the inherent limitations of the software. Although I contreras ve attempted to edit the content, I have not thoroughly proofread this note, and transcripti on errors may occur. I have attempted to recap our discussion, but this document does not c ompletely summarize all of our discussion. CC: Bunny Corcoran MD documented in this en counter Miscellaneous Notes Op Note - Kiko Garrido MD - 01/04/2020 3:59 PM PDTOperative Note Pt. Name/Age/: Ron Daley 84 y.o. 1935 [facility]. Record Number: [id number] Date of Operation/Procedure: 01/04/2020 Preoperative Diagnosis: 11 mm Left Ureteral calculus Left ureteral obstruction Left hydronephrosis Postoperative Diagnosis: 11 mm Left Ureteral calculus Left ureteral obstruction Left hydronephrosis Surgeon: Kiko Garrido MD Arcade Attendant(s): None Anesthesia Provider(s): Anesthesiologist: Jaylan Pérez DO Anesthesia Type: General Operation performed: Cystoscopy Left ureteroscopy with laser lithotripsy of ureteral calculus Left ureteral stent replacement Operative Indications: Ron Daley is a 84 y.o. male who presents with signs and symptoms consistent with a left ureteral calculus. Ron was counseled and requests operat mike intervention. The risks, benefits, complications, treatment options, and expected outcomes were discussed with Ron. Ron gave informed consent to proceed to the operating room for endoscopic estela luation and treatment. Discussed risks, including infection, bleeding, failure to access ur eter, possible severe ureteral injury, need for prolonged stent, stent irritation, hematuria , failure to diagnose, inability to treat encountered pathology, inherent risks of surgery, anesthetic complications. The patient is aware this may be the first stage of a multi-stage procedure. Ron understands and consents to proceed. Operative Findings: Cystoscopy noted no bladder tumors or lesions. Ureteroscopy noted a v zari large stone in the mid left ureter. Significant ureteral edema at location of impacted stone. Radiographic Findings: Stone free at the conclusion of the procedure. Appropriate stent p ositioning. Operative procedure in detail: Under the benefit of general anesthesia, the patient was prepped and draped in the usual st erile fashion in a low lithotomy position. Arms and legs were carefully padded and positione d to prevent any injury. An appropriate time out was held prior to the procedure. Preopera tive antibiotics and DVT prophylaxis was applied as per protocol. Preoperative images were displayed on the imaging monitor. A rigid cystoscope was then placed through the urethra into the bladder and the bladder was systematically surveyed and investigated, and the above findings were readily noted. A Bard Solo Plus guidewire was placed under fluoroscopic guidance up into the renal pelvis, and then the old stent was removed. The wire was then secured to a drape as a safety guidew yon. A second wire was then placed, and a ureteral access sheath was placed. I then placed the flexible ureteroscope up into the ureter beside the guidewire, and visual ized a large stone in the mid ureter. A ureteral dilator was needed to dilate the ureteral orifice to gain access to the ureter. The holmium laser fiber was then used to fragment the stone into multiple small pieces, and the stone fragments were removed with a basket and sent for final stone analysis, requiring multiple passes. I then passed the ureteroscope up into the ureter once again, beyond the level of the stone treatment field, and saw no additional stones in the ureter or any of the calyces. There wa s no sign of ureteral injury or perforation. The ureteroscope was then slowly withdrawn along the ureter and removed. The guidewire was then backloaded through the cystoscope, and in a retrograde fashion, a 7- [facility] Lucian X 28 cm double-J stent was placed with a proximal curl confirmed by fluoroscopy while the distal curl was confirmed by cystoscopy. The bladder was then drained through the cystoscope, and the scope was removed. Fluoroscopy once again confirmed appropriate stent positioning. A suture tether was left a ttached to the patient's stent. The patient was then awakened from anesthesia and sent to recovery in stable condition. Estimated Blood Loss: None Transfused: No Drains: None Specimen (s): A ureteral calculus fragment was submitted for analysis. Complications: None Patient Condition: Stable Disposition: Discharge home when stable. The patient to return in approximately 5-7 days f or staged stent removal in office, with KUB prior. Electronically Signed by: Kiko Garrido MD, 01/04/2020 3:59 PM PDT [facility] documented in this en counter Plan of Treatment +--------+---------+ + + + | Date | Type | Specialty | Care Team | Description | +--------+---------+ + + + | 01/21/ | Office | Urology | Kiko Garrido, | | | 2020 | Visit | | MD Jorge A [address]ENRIQUEZ | | | | | | [place] | | | | | | [id number] | | | | | | | | +--------+---------+ + + + + + +--------+ + + | Name | Type | Priori | Associated Diagnoses | Date/Time | | | | ty | | | + + +--------+ + + | Calculi Analysis | Pathology | Routin | | 01/04/2020 4:05 PM | | | and | e | | PDT | | | Cytology | | | | + + +--------+ + + + + +--------+ + + | Name | Type | Priori | Associated Diagnoses | Order Schedule | | | | ty | | | + + +--------+ + + | Calculi Analysis | Pathology | Routin | | One Time for 1 | | | and | e | | Occurrences starting | | | Cytology | | | 01/04/2020 until | | | | | | 01/04/2020 | + + +--------+ + + documented as of this encounter Procedures + +--------+ + + + | Procedure Name | Priori | Date/Time | Associated Diagnosis | Comments | | | ty | | | | + +--------+ + + + | ECG 12 LEAD | STAT | 01/04/2020 | | Results for this | | | | 3:53 PM | | procedure are in the [...] + +--------+ + + + | CYSTOSCOPY | | 01/04/2020 | Left ureteral | | | URETEROSCOPY W/ | | 2:11 PM | calculus | | | LASER | | PDT | | | + +--------+ + + + | POC GLUCOSE | Routin | 01/04/2020 | | Results for this | | | e | 1:19 PM | | procedure are in the | | | | PDT | | results section. | + +--------+ + + + documented in this encounter Results ECG 12 lead (01/04/2020 3:53 PM PDT) + + + + + + | Component | Value | Ref Range | Performed | Pathologist | | | | | At | Signature | + + + + + + | VENTRICULAR | 86 | BPM | [facility] | | | RATE EKG | | | | | + + + + + + | QRS | 94 | ms | [facility] | | | DURATION | | | | | + + + + + + | Q-T | 366 | ms | [facility] | | | INTERVAL | | | | | + + + + + + | Q-T | 437 | ms | [facility] | | | INTERVAL | | | | | | (CORRECTED) | | | | | + + + + + + | QRS AXIS | 19 | degrees | [facility] | | + + + + + + | T AXIS | -175 | degrees | [facility] | | + + + + + + | INTERPRETAT | Atrial | | [facility] | | | ION TEXT | fibrillationDiffuse | | | | | | Nonspecific ST and T | | | | | | wave abnormalityAbnormal | | | | | | ECGWhen compared with | | | | | | ECG of 15-DEC-2019 | | | | | | 17:16,Atrial | | | | | | fibrillation has | | | | | | replaced Sinus | | | | | | rhythmNonspecific ST and | | | | | | T wave abnormality now | | | | | | evident in Anterior | | | | | | leadsConfirmed by | | | | | | LILLIAN PEARSON MD ([id number]) | | | | | | on 01/05/2020 6:12:29 AM | | | | + + [...] | | | + +---------+ + + FL Pyelogram Retrograde (01/04/2020 3:42 PM PDT) [...] Procedure Note | + + | Dante, [id number] - 01/04/2020 8:39 PM PDT | | [...] | | | + +---------+ + + POC Glucose (01/04/2020 1:19 PM PDT) + +---------+ + + + | Component | Value | Ref Range | Performed | Pathologist | | | | | At | Signature | + +---------+ + + + | Glucose, | 137 (H) | 70 - 109 mg/dL | [facility] | | [facility] | | | [facility] | | | | [facility] | | | | | [facility] - | | | | | | LABORATORY | | + +---------+ + + + + + | Specimen | + + | Blood | + + + + + + + | Performing | Address | City/State/Zipcode | Phone Number | | Organization | | | | + + + + + | [facility] | [address] | [place] | [phone] | | [facility] | | [id number] | | | - LABORATORY | | | | + + + + + documented in this encounter Visit Diagnoses + + | Diagnosis | + + | Left ureteral calculus - Primary Calculus of ureter | + + | Obstruction of left ureter | + + | Hydronephrosis, left Hydronephrosis | + + documented in this encounter Admitting Diagnoses + + | Diagnosis | + + | Left ureteral calculus Calculus of ureter | + + documented in this encounter Administered Medications + +--------+ + +------+------+ | Medication Order | MAR | Action | Dose | Rate | Site | | | Action | Date | | | | + +--------+ + +------+------+ | acetaminophen (TYLENOL) tablet | Given | 01/04/20 | 1,000 mg | | | | 1,000 mg 1,000 mg, Oral, SEE | | 20 1:22 | | | | | ADMIN INSTRUCTIONS, Starting Wed | | PM PDT | | | | | 01/04/20 at 1252, For 1 dose, | | | | | | | Nursing to give 60 minutes before | | | | | | | time of surgery, Pre-op | | | | | | + +--------+ + +------+------+ + +---+ | | | + +---+ | albuterol-ipratropium 2.5-0.5 | | | mg/3 mL nebulizer solution 3 mL | | | 3 mL, Nebulization, ONCE PRN, | | | Wheezing, Starting 01/04/20 at | | | 1252, For 1 dose, Pre-op | | + +---+ | | | + +---+ | albuterol-ipratropium 2.5-0.5 | | | mg/3 mL nebulizer solution 3 mL | | | 3 mL, Nebulization, ONCE PRN, | | | Wheezing, Shortness of Breath, | | | Starting Thu01/04/20 at 1538, For | | | 1 dose, Recovery/Phase I | | + +---+ | | | + +---+ | dextrose 50% injection 12.5-25 | | | g 12.5-25 g, Intravenous, EVERY | | | 15 MIN PRN, Low Blood Sugar, Give | | | 12.5g (25 mL) IV if blood | | | glucose 50-69 mg/dL. Give 25g | | | (50 mL) IV if blood glucose < 50, | | | Starting Thu01/04/20 at 1252, | | | Repeat in 15 min if blood glucose | | | remains < 70 mg/dL. Repeat | | | blood glucose in 30 min once | | | blood glucose > 70., Pre-op | | + +---+ | | | + +---+ | dextrose 50% injection 12.5-25 | | | g 12.5-25 g, Intravenous, EVERY | | | 15 MIN PRN, Low Blood Sugar, For | | | hypoglycemia. Give 12.5g (25ml) | | | IV if blood glucose 50-69 | | | mg/dL. Give 25g (50ml) IV if | | | blood glucose < 50, Starting Wed | | | 01/04/20 at 1538, Give over 2 min. | | | Repeat in 15 min if blood | | | glucose remains < 70 mg/dL. | | | Repeat blood glucose in 30 min | | | once blood glucose > 70., | | | Recovery/Phase I | | + +---+ | | | + +---+ | ePHEDrine (AKOVAZ) 50 mg/mL | | | injection 5 mg 5 mg, | | | Intravenous, EVERY 5 MIN PRN, if | | | SBP <90., Starting 01/04/20 at | | | 1538, Hold if HR > 100. Maximum | | | total dose 20mg., Recovery/Phase | | | I | | + +---+ | | | + +---+ | fentaNYL (PF) injection 25-50 | | | mcg 25-50 mcg, Intravenous, | | | EVERY 5 MIN PRN, Pain, Initial | | | postop urgent pain or escalating | | | pain, Starting 01/04/20 at | | | 1538, For 4 doses, (2 doses | | | maximum for opioid naive, 4 doses | | | maximum for opioid tolerant) | | | First dose must be lowest dose. | | | Use Pasero Sedation Scale. | | | [Opioid tolerant = One week or | | | longer, kycsry-uxt-eajop use of | | | at least the following DAILY | | | dose: 60mg oral morphine, 60mg | | | oral hydrocodone, 30mg oral | | | oxycodone, 8mg oral | | | hydromorphone, fentanyl patch | | | 25mcg/hr, or equivalent dose of | | | another opioid], Recovery/Phase I | | + +---+ | | | + +---+ | glycopyrrolate (ROBINUL) | | | injection 0.2 mg 0.2 mg, | | | Intravenous, PRN, Bradycardia, | | | For HR <50, Starting Thu01/04/20 | | | at 1538, For 2 doses, May repeat | | | one time after 1min, | | | Recovery/Phase I | | + +---+ | | | + +---+ | hydrALAZINE (APRESOLINE) | | | injection 5 mg 5 mg, | | | Intravenous, EVERY 20 MINUTES | | | PRN, For SBP > 180, DBP > 100, | | | Starting Thu01/04/20 at 1538, | | | Hold if HR > 100. Maximum total | | | dose 40 mg. Use labetalol first | | | if available., Recovery/Phase I | | + +---+ | | | + +---+ + +-------+ + +---+---+ | HYDROcodone-acetaminophen | Given | 01/04/20 | 1 tablet | | | | (NORCO) 5-325 mg per tablet 1 | | 20 4:35 | | | | | tablet 1 tablet, Oral, EVERY 4 | | PM PDT | | | | | HOURS PRN, Pain, Starting Thu | | | | | | | 01/04/20 at 1620, Post-op/Phase II | | | | | | + +-------+ + +---+---+ +---+---+ | | | +---+---+ + +-------+ +--------+---+---+ | HYDROmorphone (DILAUDID) | Given | 01/04/20 | 0.3 mg | | | | injection 0.2-0.4 mg 0.2-0.4 mg, | | 20 4:15 | | | | | Intravenous, EVERY 5 MIN PRN, | | PM PDT | | | | | Pain, Starting Thu01/04/20 at | | | | | | | 1538, First dose must be lowest | | | | | | | dose, can increase subsequent | | | | | | | doses by 0.2mg within dosing | | | | | | | range. If patient meets opioid | | | | | | | tolerant definition, can start | | | | | | | with 0.4mg dose. [Maximum total | | | | | | | PACU dose 4mg] Use Pasero | | | | | | | Sedation Scale. [Opioid tolerant | | | | | | | = One week or longer, | | | | | | | phruzj-kvp-djkhu use of at least | | | | | | | the following DAILY dose: 60mg | | | | | | | oral morphine, 60mg oral | | | | | | | hydrocodone, 30mg oral oxycodone, | | | | | | | 8mg oral hydromorphone, fentanyl | | | | | | | patch 25mcg/hr, or equivalent | | | | | | | dose of another opioid], | | | | | | | Recovery/Phase I | | | | | | + +-------+ +--------+---+---+ +---+---+ | | | +---+---+ + +-------+ +------+---+---+ | labetalol (TRANDATE) 5 mg/mL | Given | 01/04/20 | 5 mg | | | | injection 5 mg 5 mg, | | 20 3:59 | | | | | Intravenous, EVERY 5 MIN PRN, For | | PM PDT | | | | | SBP > 180, DBP > 100, Starting | | | | | | | 01/04/20 at 1538, Hold if HR < | | | | | | | 60. Maximum total dose 300mg. | | | | | | | Notify anesthesia if patient | | | | | | | requires more than 50mg., | | | | | | | Recovery/Phase I | | | | | | + +-------+ +------+---+---+ +---+---+ | | | +---+---+ + +---------+ +---+-------+---+ | lactated ringers (LR) infusion | New Bag | 01/04/20 | | 100 | | | at 10-100 mL/hr, Intravenous, | | 20 1:24 | | mL/hr | | | CONTINUOUS, Starting Thu01/04/20 | | PM PDT | | | | | at 1315, TKO. Use unless patient | | | | | | | is on dialysis., Pre-op | | | | | | + +---------+ +---+-------+---+ +---+---+ | | | +---+---+ + +-------+ +------+---+---+ | ondansetron (ZOFRAN) injection | Given | 01/04/20 | 4 mg | | | | 4 mg 4 mg, Intravenous, EVERY 4 | | 20 4:12 | | | | | HOURS PRN, Nausea, Vomiting, | | PM PDT | | | | | Starting Thu01/04/20 at 1538, | | | | | | | Recovery/Phase I | | | | | | + +-------+ +------+---+---+ +---+---+ | | | +---+---+ + +-------+ +------+---+---+ | oxybutynin (DITROPAN) tablet 5 | Given | 01/04/20 | 5 mg | | | | mg 5 mg, Oral, 3 TIMES DAILY | | 20 4:38 | | | | | PRN, Bladder Spasms, Starting Wed | | PM PDT | | | | | 01/04/20 at 1620, Post-op/Phase | | | | | | | II | | | | | | + +-------+ +------+---+---+ + +---+ | | | + +---+ | sodium chloride 0.9% (NS) | | | infusion at 10-100 mL/hr, | | | Intravenous, CONTINUOUS, Starting | | | 01/04/20 at 1315, TKO. Use | | | this instead of LR if patient is | | | on dialysis., Pre-op | | + +---+ | | | + +---+ documented in this encounter
--- OUTSIDE RECORDS SUMMARY | ~2020-01-23 | XMS | Encounter Summary ---
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
--- OUTSIDE RECORDS SUMMARY | ~2020-01-23 | XMS | Encounter Summary ---
Demographics + + + | Address | [address] | | | [place] [address] | + + + | Home Phone [...] | | | | | [place] [address] | | + + + + + | Melissa Sheldon | ECON | [address] | | | | | [place] [address] | | + + + + + Care Team Providers + +------+ + | Care Map Colorer Name | Role | Phone | + +------+ + | Jona Deal MD | PCP | | + +------+ + Encounter Details +--------+ + + + + | Date | Type | Department | Care Team | Description | +--------+ + + + + | 05/17/ | Hospital | [facility] | | | | 2012 | Encounter | MED CTR XRAY [address] | | | | | | [place] | | | | | | [place] [address] | | | | | | [phone] | | | +--------+ + + + [...] | | | | | [place] | | | | | | [address] | | | | | | | [...] At | + + + | [facility] | [place] | | Department [address] [facility] | [facility] | | [ rep [phone]] [ rep [facility] | | st zip] Signed | - IMAGING | | | | | Patient Name: RNO SHELDON V Physician: | | | GIFF.[id number] : 1935 Age: 78 Sex: M Unit #: [id number] | | | Exam Date: 05/17/13 [place] [facility] [place] | | | Report #: [id number] Page: | | | %(RAD)RES..mtdd.print.filter("pg") of %(RAD) | | | RES..mtdd.print.filter("tpg") | | | | | | Accession Number: [id number] | | | MRI LUMBAR SPINE, 05/17/2013 [...] | | pole of the right kidney. Buwcy-gz-dbpzw analysis of | | | the axial [...] | | | Transcribed Date/Time: 05/17/2013 17:36 [place]: | | | <<Signature on File>> | | | | | | Tan Keenan MD05/18/13 0654 <Electronically signed by | | | Tan Keenan MD> Tan Keenan MD 05/17/13 | | | 1548 [place] Tier: [facility] [id number]/26/13 1736 | | | DO Jona Weir MD | | + + + + + + + + | Performing | Address | City/State/Zipcode | Phone Number | | Organization | | | | + + + + + | [facility] | [address] | [place] | [phone] | | [facility] | | [address] | | | - IMAGING | | | | + + + + + documented in this encounter Visit Diagnoses Not on filedocumented in this encounter
--- OUTSIDE RECORDS SUMMARY | ~2020-01-23 | XMS | Encounter Summary ---
Demographics + + + | Address | [address] | | | [place] [address] | + + + | Home Phone | | + + + | Preferred Language | Unknown | + + + | Marital Status | | + + + | Gnosticism Affiliation | 1013 | + + + | Race | Unknown | + + + | Ethnic Group | Unknown | + + + Author + + + | Author | [facility] | | | and [place] | + + + | Organization | [facility] | | [...] | | | | | [place] [address] | | + + + + + | Melissa Daley | ECON | [address] | | | | | [place] [address] | | + + + + + Care Team Providers + +------+ + | Care Foreign Broadcast Specialist Name | Role | Phone | [...] | | | [address] | [place] [address] | | | | | [place] [address] | | | | | | [phone] | | | +--------+ + + + [...] [place] | | | | | | [address] | | | | | | | [...]
--- OUTSIDE RECORDS SUMMARY | ~2020-01-23 | XMS | Encounter Summary ---
Demographics + + + | Address | [address] | | | [place] [address] | + + + | Home Phone | | + + + | Preferred Language | Unknown | + + + | Marital Status | | + + + | Jewish Affiliation | 1013 | + + + | Race | Unknown | + + + | Ethnic Group | Unknown | + + + Author + + + | Author | [facility] | | | and [place] | + + + | Organization | [facility] | | [...] | | | | | [place] [address] | | + + + + + | Melissa Daley | ECON | [address] | | | | | [place] [address] | | + + + + + Care Team Providers + +------+ + | Care Satellite Dish Installer Name | Role | Phone | + +------+ + | Jona Deal MD | PCP | | + +------+ + Reason for Visit +--------+--------+ + | Reason | Onset | Comments | | | Date | | +--------+--------+ + | Other | 01/04/ | | | | 2012 | | +--------+--------+ + Encounter Details +--------+ + + + + | Date | Type | Department | Care Team | Description | +--------+ + + + + | 06/25/ | Telephone | [facility] [place] | Marci Mcneal, | Other | | 2012 | | PULMONARY [address] | RN | | | | | [place], | | | | | | [place] [address] | | | | | | [phone] | | | +--------+ + + + [...] Telephone Encounter - Marci Mcneal RN - 06/25/2012 2:36 PM Kate mccracken with . Advised per Dr Mckeon that Ron needs to have a repeat nocturnal p ulse oximetry on O2 at 2 l/m. Yairjosr and she will relay this message to Ron.Electronically s igned by Marci Mcneal RN at 06/25/2012 2:39 PM PSTdocumented in this encounter Plan of [...]
--- OUTSIDE RECORDS SUMMARY | ~2020-01-23 | XMS | Encounter Summary ---
Demographics + + + | Address | [address] | | | [place] [address] | + + + | Home Phone | | + + + | Preferred Language | Unknown | + + + | Marital Status | | + + + | Yazidi Affiliation | 1013 | + + + [...] | | | | | [place] [address] | | + + + + + | Melissa Daley | ECON | [address] | | | | | [place] [address] | | + + + + + Care Team Providers + +------+ + | Care Microchip Specialist Name | Role | Phone | + +------+ + | Jona Deal MD | PCP | | + +------+ + Reason for Visit +--------+--------+ + | Reason | Onset | Comments | | | Date | | +--------+--------+ + | Other | 01/03/ | | | | 2012 | | +--------+--------+ + Encounter Details +--------+ + + + + | Date | Type | Department | Care Team | Description | +--------+ + + + + | 06/24/ | Telephone | [facility] [place] | Jared Garcia, | Other | | 2012 | | PULMONARY [address] | RN | | | | | [place], | | | | | | [place] [address] | | | | | | [phone] | | | +--------+ + + + [...] Telephone Encounter - Jared Garcia RN - 06/24/2012 12:07 PM PSTThis message was relay ed to Lloyd. Arana per patient. 12 :08 PM PSTTelephone Encounter - Jared Garcia RN - 06/24/2012 12:07 PM PSTMesliberty mccracken by JARED [place] on ThuJun 24, 2012 1207 ------ Message from: ERNESTO QUACH Created: ThuJun 24, 2012 0904 Please let patient know his CXR is improved. documented in this encounter Plan of [...]
--- OUTSIDE RECORDS SUMMARY | ~2020-01-23 | XMS | Encounter Summary ---
Demographics + + + | Address | [address] | | | [place] [address] | + + + | Home Phone [...] | | | | | [place] [address] | | + + + + + | Melissa Sheldon | ECON | [address] | | | | | [place] [address] | | + + + + + Care Team Providers + +------+ + | Care Car Wash Attendant Name | Role | Phone | + +------+ + | Unknown, Doctor | PCP | | + +------+ + Encounter Details +--------+ + + + + | Date | Type | Department | Care Team | Description | +--------+ + + + + | 05/17/ | Hospital | [facility] | Felice Ford, | | | 2011 - | Encounter | [facility] | [address] | | | | | [address] [place] | [place], [place] | | | 05/24/ | | [place] [address] | [address] | | | 2011 | | [phone] | [phone] | | | | | | | | | | | | Mali Foreman MD | | | | | | [address] | | | | | | [place], [place] | | | | | | [address] | | | | | | | [...] Mali Foreman MD - 05/24/2012 10:32 [place] [address] Patient Name: RON SHELDON V Provider: Felice Ford MD Unit #: [id number] Location: [address] [place] [address] #: [id number] : 1935 ADMISSION DATE: 05/17/2012 DISCHARGE DATE: [...] The patient was admitted on transfer from [facility] in [place], [place] , after being admitted 05/13/2012. He required up to 10 liters of oxygen and h ad a significant cough. As there was no pulmonary consultation available, he was transferre d to [facility]. The patient was started on IV methylprednisolone 8 0 mg t.i.d., but due to hyperglycemia, this apparently was discontinued. Sputum culture gre w staph feces, which appeared to be sensitive. Additional respiratory culture here at [facility] grew Jonn. The patient was empirically [...] is re commended by Dr. Mckeon, his sap bw consultant, that he have a sleep study [...] Mali Foreman MD Internal Medicine JOB #: [id number] EXT JOB #:[id number] cc: MD Jona Gregorio MD Benjamin Leach, [...] Felice Ford MD - 05/17/2012 8:00 [place] [address] Patient Name: RON SHELDON V Provider: Felice Ford MD Unit #: [id number] Location: [address] [place] [address] #: [id number] : 1935 DATE: 05/17/2012 CHIEF COMPLAINT: Cough, [...] about 20 feet. He was admitted to [facility] on 05/13/2012. An xray showed multifocal consolidations. [...] up to 10 liters of oxygen at [facility] and because a it infrastructure project manager was not available, he was transferred to [facility] for further workup. He did have a [...] HISTORY: He lives on a ranch outside [place]. 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 LABORATORY DATA: Chem-7 from [facility] this AM shows sodium 135, potassium 4, [...] has only growing heavy growth of normal robb and one from 05/15/2012 which is growing [...] initial sputum culture, negative bacterial culture at [facility]. It does seem to be a subacute [...] BY: Felice Ford MD Hospitalist JOB #: [id number] EXT JOB #:[id number] cc: Carmelita Mckeon MD <<Signature on File>> Dat Jarvis D107/18/11 0123 < documented in thi s encounter Consult Notes Carmelita Mckeon MD - 05/18/2012 3:19 PM PST [place], [place] [address] Patient Name: RON SHELDON V Provider: Felice Ford MD Unit #: [id number] Location: [address] [place], [place] [address] #: [id number] : 1935 DATE: 05/18/2012 CONSULTING PHYSICIAN: Carmelita [...] and reflux disease who presented to [facility] in [place], [place] on 05/13/2012, with cough, hemoptysis, and [...] any unusual travel. He did have a constitution party back in January where he was i n contact with a number of people to celebrate his custodial from farming as well as his anniversary. He notes that at baseline he goes to [place] every Thursday and at [facility] he is exposed to a large number [...] He went to a care clinic in [place] on Thursday05/03/2012 and wa s treated with [...] not have the notes available from that [facility] clinic visit. Three days later on Jack, which is now 05/13/2012, he had continu ed to have worsening shortness of breath, increasing hemoptysis with now fresh blood mixed in with his sputum and was now turning blue with exertion. This prompted him to go to the e mergency room at [facility]. He notes that the color of his [...] was poor. Chest x-ray on presentation to [facility] showed multifocal consolidations and ground- glass opacities [...] and sputum cultures sent on presentation to [facility] and his sputum culture is gr owing [...] arrangements were made to transfer to [facility]. On the morning as his transfer he [...] wash out, followed by prolonged antibiotics through [facility]. 7. Status post tons illectomy. 8. Status [...] He lives on a ranch outside of [place] with his of 60 years. There are [...] g use. 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 He has previously been exposed to to [facility] chemicals, namely herbicides, and also extensively to [...] had had high blood [employer] gars in [place]. He denies any history of thyroid disease. [...] warm and dry. DATA: Records from [facility] were reviewed as was a history and [...] negative. Influenza A and B swab from [facility] was also negative. BNP on arrival to [facility] w as 349 and decreased to in [...] 05/17/2012 . His chest x-ray from the [facility] on 05/10/2012, already shows patchy [...] with steroids for about 24 hours at [facility] a nd had clinical worsening of his [...] going to request the culture data from [facility] to see if they have further speciated [...] Carmelita Mckeon MD Pulmonary Medicine JOB #: [id number] EXT JOB #:[id number] cc: MD Felice Worthy MD <<Signature on [...] [place] | | | | | | [address] | | | | | | | [...] | | Cells | | | [facility] | | | | | | MEDICAL [...] | | Neutrophils | | | [facility] | | | | [...] + | [facility] | [address] | [place] | [phone] | | [facility] | | [address] | | | - LABORATORY | | | | + + + + + | [facility] | [address] | [place], [place] | | | [facility] | | [address] | | | - LABORATORY | [...] [address] | [place] | [phone] | | [facility] | | [address] | | | - LABORATORY | | | | + + + + + | [facility] | [address] | [place], [place] | | | [facility] | | [address] | | | - LABORATORY | | | | + + + + + XR Chest AP Portable (05/23/2012 12:43 PM PST) + + | Specimen | + + | | + + + + + | Narrative | Performed At | + + + | [facility] Diagnostic Imaging | [facility] | | Department [address], [place] | [facility] | | [ rep ct street1+2] [ rep ct [facility] | | st zip] Signed | - IMAGING | | | | | Patient Name: RON SHELDON V Physician: | | | VAN. : 1935 Age: 77 Sex: M Unit #: [id number] | | | Exam Date: 05/23/12 Location: [address] [place] [address] | | | Report #: [id number] Page: | | | %(RAD)RES..mtdd.print.filter("pg") of %(RAD) | | | RES..mtdd.print.filter("tpg") | | | | | | Accession Number: [id number] | | | PORTABLE CHEST, 05/23/2012 CLINICAL [...] | | | Transcribed Date/Time: 05/23/2012 14:11 Household Coordinator: | | | MR.SC <<Signature on File>> | | | Rakesh | | | Myranda Guerrero MD05/23/12 1727 <Electronically signed by Rakesh Whitmore | | Sowmya Guerrero MD> Rakesh Guerrero MD 05/23/12 1243 | | | Household Coordinator: [employer] Aomatsjsqdeks97/02/12 1411 | | | | | + + + + + + + + | Performing | Address | City/State/Zipcode | Phone Number | | Organization | | | | + + + + + | [facility] | [address] | [place] | [phone] | | [facility] | | [address] | | | - IMAGING | | [...] + | [facility] | [address] | [place] | [phone] | | [facility] | | [address] | | | - LABORATORY | | | | + + + + + | [facility] | [address] | [place] | | | [facility] | | [address] | | | - LABORATORY | [...] | | Direct | | | [facility]. [facility] | | | | | | MEDICAL [...] [address] | [place] | [phone] | | [facility] | | [address] | | | - LABORATORY | | | | + + + + + | [facility] | [address] | [place] | | | [facility] | | [address] | | | - LABORATORY | [...] (H) | 7 - 18 mg/dL | [facility] | | | | | | [facility] | | | | | | MEDICAL | | | | | | CENTER - | | | | | | LABORATORY | | + + + + + + | Creatinine | 0.95 | 0.60 - 1.30 | [facility] | | | | | mg/dL | [...] + | [facility] | [address] | [place], [place] | [phone] | | [facility] | | [address] | | | - LABORATORY | | | | + + + + + | [facility] | [address] | [place], [place] | | | [facility] | | [address], [facility] | | | - LABORATORY | | | | + + + + + XR Chest AP Portable (05/22/2012 10:52 AM PST) + + | Specimen | + + | | + + + + + | Narrative | Performed At | + + + | [facility] Diagnostic Imaging | [facility] | | Department [address] [place] [address] | [facility] | | [ rep ct street1+2] [ rep ct [facility] | | [facility]] Signed | - IMAGING | | | | | Patient Name: RON SHELDON V Physician: | | | OFFMelina. : 1935 Age: 77 Sex: M Unit #: [id number] | | | Exam Date: 05/22/12 Location: [address] [place] [address] | | | Report #: [id number] Page: | | | %(RAD)RES..mtdd.print.filter("pg") of %(RAD) | | | RES..mtdd.print.filter("tpg") | | | | | | Accession Number: [id number] | | | PORTABLE CHEST, 05/22/2012 CLINICAL [...] Transcribed Date/Time: | | | 05/22/2012 11:53 Household Coordinator: | | | <<Signature on File>> | | | Rakesh | | | Myranda Guerrero MD05/22/121943 <Electronically signed by Rakesh Whitmore | | | Yolanda TERAN> Rakesh Guerrero MD 05/22/12 1052 | | | Household Coordinator: [employer] Fhduaeedmfsqu76/01/12 1153 | | | Carmelita Mckeon MD | | + + + + + + + + | Performing | Address | City/State/Zipcode | Phone Number | | Organization | | | | + + + + + | [facility] | [address] | [place] | [phone] | | [facility] | | [address] | | | - IMAGING | | [...] + | [facility] | [address] | [place], [place] | [phone] | | [facility] | | [address] | | | - LABORATORY | | | | + + + + + | [facility] | [address] | [place], [place] | | | [facility] | | [id number] [place] [address] | | | - LABORATORY | | [...] (H) | 7 - 18 mg/dL | [facility] | | | | | | [facility] | | | | | | MEDICAL | | | | | | CENTER - | | | | | | LABORATORY | | + + + + + + | Creatinine | 0.92 | 0.60 - 1.30 | [facility] | | | | | mg/dL | [...] + | [facility] | [address] | [place] | [phone] | | [facility] | | [address] | | | - LABORATORY | | | | + + + + + | [facility] | [address] | [place] | | | [facility] | | [address], [facility] | | | - LABORATORY | | [...] + | [facility] | [address] | [place] | [phone] | | [facility] | | [address] | | | - LABORATORY | | | | + + + + + | [facility] | [address] | [place] | | | [facility] | | [address], [facility] | | | - LABORATORY | | [...] | performed on the Nate | | [employer])[facility]yler [facility] | | | | Sharona Access [...] + | [facility] | [address] | [place] | [phone] | | [facility] | | [address] | | | - LABORATORY | | | | + + + + + | [facility] | [address] | [place], [place] | | | [facility] | | [address] | | | - LABORATORY | [...] [address] | [place] | [phone] | | [facility] | | [address] | | | - LABORATORY | | | | + + + + + | [facility] | [address] | [place] | | | [facility] | | [address], [facility] | | | - LABORATORY | | [...] + | [facility] | [address] | [place], [place] | [phone] | | [facility] | | [address] | | | - LABORATORY | | | | + + + + + | [facility] | [address] | [place], [place] | | | [facility] | | [id number] [place] [address] | | | - LABORATORY | | [...] + | [facility] | [address] | [place], [place] | [phone] | | [facility] | | [address] | | | - LABORATORY | | | | + + + + + | [facility] | [address] | [place], [place] | | | [facility] | | [address], [facility] | | | - LABORATORY | | | | + + + + + XR Chest AP Portable (05/20/2012 10:12 AM PST) + + | Specimen | + + | | + + + + + | Narrative | Performed At | + + + | [facility] Diagnostic Imaging | [facility] | | Department [address] [facility], [place] | [facility] | | [ rep ct street1+2] [ rep [facility] | | st zip] Signed | - IMAGING | | | | | Patient Name: MARQUISMyrandaRON Ahn Physician: | | | . : 1935 Age: 77 Sex: M Unit #: [id number] | | | Exam Date: 05/20/12 Location: [address] [place] [address] | | | Report #: [id number] Page: | | | %(RAD)RES..mtdd.print.filter("pg") of %(RAD) | | | RES..mtdd.print.filter("tpg") | | | | | | Accession Number: [id number] | | | PORTABLE CHEST X-RAY CLINICAL [...] Transcribed | | | Date/Time: 05/20/2012 10:16 Household Coordinator: JAMI | | | <<Signature on File>> | | | Kiko | | | Melina Hair MD05/20/12 1038 <Electronically signed by Kiko Lindo | | | Laxmi TERAN> Kiko Hair MD 05/20/12 1012 | | | Household Coordinator: [employer] Kkvgjotexddzi98/29/12 1016 | | | Carmelita Mckeon MD | | + + + + + + + + | Performing | Address | City/State/Zipcode | Phone Number | | Organization | | | | + + + + + | [facility] | [address] | [place] | [phone] | | [facility] | | [address] | | | - IMAGING | | [...] + | [facility] | [address] | [place] | [phone] | | [facility] | | [address] | | | - LABORATORY | | | | + + + + + | [facility] | [address] | [place], [place] | | | [facility] | | [address], [facility] | | | - LABORATORY | | [...] [facility] | | | | | | [facility] | | | | | | [...] [address] | [place] | [phone] | | [facility] | | [address] | | | - LABORATORY | | | | + + + + + | [facility] | [address] | [place] | | | [facility] | | [address], [facility] | | | - LABORATORY | | [...] + | [facility] | [address] | [place], [place] | [phone] | | [facility] | | [address] | | | - LABORATORY | | | | + + + + + | [facility] | [address] | [place] | | | [facility] | | [address] | | | - LABORATORY | [...] + | [facility] | [address] | [place] | [phone] | | [facility] | | [address] | | | - LABORATORY | | | | + + + + + | [facility] | [address] | [place], [place] | | | [facility] | | [address] | | | - LABORATORY | [...] + | [facility] | [address] | [place], [place] | [phone] | | [facility] | | [address] | | | - LABORATORY | | | | + + + + + | [facility] | [address] | [place], [place] | | | [facility] | | [id number] [place] [address] | | | - LABORATORY | | [...] 15 | 7 - 18 mg/dL | [facility] | | | | | | [facility] | | | | | | MEDICAL | | | | | | CENTER - | | | | | | LABORATORY | | + + + + + + | Creatinine | 0.87 | 0.60 - 1.30 | [facility] | | | | | mg/dL | [facility] | | | | | | MEDICAL | | | | | | CENTER - | | | | | | LABORATORY | | + + + + + + | Estimated | >60Comment: For | >60 mL/min/A | [facility] | | | GFR | -Americans, | [...] + | [facility] | [address] | [place], [place] | [phone] | | [facility] | | [address] | | | - LABORATORY | | | | + + + + + | [facility] | [address] | [place], [place] | | | [facility] | | [address] | | | - LABORATORY | [...] | | | | | | by: [facility] | | | | | | Laboratory, [address] | | | | | | [address], | | | | | | [place] [address] | | | | + + + + + + + + | Specimen | + + | | + + + + + + + | Performing | Address | City/State/Zipcode | Phone Number | | Organization | | | | + + + + + | [facility] | [address] | [place], [place] | [phone] | | [facility] | | [address] | | | - LABORATORY | | | | + + + + + | [facility] | [address] | [place], [place] | | | [facility] | | [address] [place] [address] | | | - LABORATORY | | [...] | | | | | | Performed: [facility] | | | | | | Diagnostics, [address] | | | | | | [facility], | | | | | | [place] [address] | | | | | | CLIA: [id number] | | | | + + + + + + + + | Specimen | + + | | + + + + + + + | Performing | Address | City/State/Zipcode | Phone Number | | Organization | | | | + + + + + | [facility] | [address] | [place] | [phone] | | [facility] | | [address] | | | - LABORATORY | | | | + + + + + | [facility] | [address] [facility] | [place], [place] | | | [facility] | | [address], [facility] | | | - LABORATORY | | | | + + + + + XR Chest AP Portable (05/18/2012 8:55 AM PST) + + | Specimen | + + | | + + + + + | Narrative | Performed At | + + + | [facility] Diagnostic Imaging | [facility] | | Department [address] [facility], [place] | [facility] | | [ rep ct street1+2] [ rep ct [facility] | | [facility]] Signed | - IMAGING | | | | | Patient Name: RON SHELDON V Physician: | | | KARTIK.02 : 1935 Age: 77 Sex: M Unit #: [id number] | | | Exam Date: 05/17/12 Location: [address] [place] [address] | | | Report #: [id number] Page: | | | %(RAD)RES..mtdd.print.filter("pg") of %(RAD) | | | RES..mtdd.print.filter("tpg") | | | | | | Accession Number: [id number] | | | PORTABLE CHEST CLINICAL HISTORY: [...] Transcribed Date/Time: | | | 05/18/2012 08:58 Household Coordinator: | | | <<Signature on File>> | | | | | | Tan Keenan MD05/18/12 1402 <Electronically signed by | | | Tan Keenan MD> Tan Keenan MD 05/18/12 | | | 0855 Household Coordinator: [employer] Dlvyzfztescgu84/27/12 0858 | | | | | + + + + + + + + | Performing | Address | City/State/Zipcode | Phone Number | | Organization | | | | + + + + + | [facility] | [address] | [place] | [phone] | | [facility] | | [address] | | | - IMAGING | | [...] + | [facility] | [address] | [place], [place] | [phone] | | [facility] | | [address] | | | - LABORATORY | | | | + + + + + | [facility] | [address] | [place] | | | [facility] | | [id number] [place] [address] | | | - LABORATORY | | [...] | performed on the Nate | | [employer]Tyler [facility] | | | | Sharona Access [...] + | [facility] | [address] | [place] | [phone] | | [facility] | | [address] | | | - LABORATORY | | | | + + + + + | [facility] | [address] | [place] | | | [facility] | | [address] | | | - LABORATORY | [...] + | [facility] | [address] | [place], [place] | [phone] | | [facility] | | [address] | | | - LABORATORY | | | | + + + + + | [facility] | [address] | [place], [place] | | | [facility] | | [id number] [place] [address] | | | - LABORATORY | | [...] | | | Antibody | [place] | | CENTER - | | | | [address] CLIA: [id number] | | LABORATORY | | | | | | | | + + + + + + + + | Specimen | + + | | + + + + + + + | Performing | Address | City/State/Zipcode | Phone Number | | Organization | | | | + + + + + | [facility] | [address] | [place] | [phone] | | [facility] | | [address] | | | - LABORATORY | | | | + + + + + | [facility] | [address] | [place] | | | [facility] | | [address], [facility] | | | - LABORATORY | | [...] CENTER - | | | | Chromatin, CORE EXTRUDER, Sm CORE EXTRUDER, | | LABORATORY | | | | [...] | | | | | Fabián Rocha [place], [place] | | | | | | [address] CLIA: [id number] | | | | | | | | | | + + + + + + + + | Specimen | + + | | + + + + + + + | Performing | Address | City/State/Zipcode | Phone Number | | Organization | | | | + + + + + | [facility] | [address] | [place] | [phone] | | [facility] | | [address] | | | - LABORATORY | | | | + + + + + | [facility] | [address] | [place], [place] | | | [facility] | | [address] | | | - LABORATORY | [...] [address] | [place] | [phone] | | [facility] | | [address] | | | - LABORATORY | | | | + + + + + | [facility] | [address] | [place] | | | [facility] | | [address], [facility] | | | - LABORATORY | | [...] + | [facility] | [address] | [place] | [phone] | | [facility] | | [address] | | | - LABORATORY | | | | + + + + + | [facility] | [address] | [place], [place] | | | [facility] | | [address] | | | - LABORATORY | [...] - 1.030 | [facility] | | | [place], | | | [facility] | | [...] + | [facility] | [address] | [place] | [phone] | | [facility] | | [address] | | | - LABORATORY | | | | + + + + + | [facility] | [address] | [place] | | | [facility] | | [address], [facility] | | | - LABORATORY | | [...] | | Antigen, | INTERPRETATION: | | [facility] | | | Rapid | NEGATIVE: Infection [...] [address] | [place] | [phone] | | [facility] | | [address] | | | - LABORATORY | | | | + + + + + | [facility] | [address] | [place] | | | [facility] | | [id number], [facility] | | | - LABORATORY | | [...] | AB | NEGATIVEComment: | | [facility] | | | | Presumptive NEGATIVE for [...] + | [facility] | [address] | [place] | [phone] | | [facility] | | [id number] | | | - LABORATORY | | | | + + + + + | [facility] | [address] | [place], [place] | | | [facility] | | [address], [facility] | | | - LABORATORY | | [...] CHAVEZ. | [address] | [place], [place] | [phone] | | [facility] | | [address] | | | - LABORATORY | | | | + + + + + documented in this encounter Visit Diagnoses Not on filedocumented in this encounter
--- OUTSIDE RECORDS SUMMARY | ~2020-01-23 | XMS | Encounter Summary ---
Demographics + + + | Address | [address] | | | [place] [address] | + + + | Home Phone | | + + + | Preferred Language | Unknown | + + + | Marital Status | | + + + | Hinduism Affiliation | 1013 | + + + [...] | | | | | [place] [address] | | + + + + + | Melissa Daley | ECON | [address] | | | | | [place] [address] | | + + + + + Care Team Providers + +------+ + | Care Chemist Enzymes Name | Role | Phone | + +------+ + | Unknown, Doctor | PCP | | + +------+ + Reason for Visit +--------+--------+ + | Reason | Onset | Comments | | | Date | | +--------+--------+ + | Other | 05/24/ | | | | 2011 | | +--------+--------+ + Encounter Details +--------+ + + + + | Date | Type | Department | Care Team | Description | +--------+ + + + + | 05/24/ | Telephone | [facility] | Marci Mcneal, | Other | | 2011 | | PULMONARY [address] | RN | | | | | [place], | | | | | | [place] [address] | | | | | | [phone] | | | +--------+ + + + [...] Telephone Encounter - Marci Mcneal RN - 05/24/2012 4:25 PM PSTSusan (daughter) kandace mccracken asking if Ron should continue the Flonase. Yasmeen per Dr Mckeon. documented in this encounter Plan of Treatment +--------+---------+ + + + | Date | Type | Specialty | Care Team | Description | +--------+---------+ + + + | 01/21/ | Office | Urology | Kiko Garrido, | | | 2020 | Visit | | MD Jorge A HENRIQUEZ | | | | | | [place] | | | | | | [phone] | | | | | | | | +--------+---------+ + + + documented as of this encounter Visit Diagnoses Not on filedocumented in this encounter"
--- OUTSIDE RECORDS SUMMARY | ~2020-01-23 | XMS | Encounter Summary ---
Demographics + + + | Address | [address] | | | [place] [address] | + + + | Home Phone [...] | | | | | [place] [address] | | + + + + + | Melissa Daley | ECON | [address] | | | | | [place] [address] | | + + + + + Care Team Providers + +------+ + | Care Senior Systems Software Engineer Name | Role | Phone | + +------+ + | Bunny Corcoran | PCP | | | MD | | | + +------+ + Encounter Details +--------+ + + + + | Date | Type | Department | Care Team | Description | +--------+ + + + + | 12/26/ | Imaging | [facility] | Provider, | | | 2019 | Exam | [facility] | MD Joy [address] | | | | | IMAGING [address] | Chad [address]DS | | | | | [address] | [place] [address] | | | | | [place] [address] | | | | | | [phone] | | | +--------+ + + + [...] | +--------+---------+ + + + | 01/21/ Office | Urology | Kiko Garrido, | | | 2020 | Visit | | MD Jorge A HENRIQUEZ | | | | | | [place] | | | | | | [address] | | | | | | | | +--------+---------+ + + + documented as of this encounter Procedures + +--------+ + + + | Procedure Name | Priori | Date/Time | Associated Diagnosis | Comments | | | ty | | | | + +--------+ + + + | XR ABDOMEN AP | Routin | 12/22/2019 | | Results for this | | | e | 12:00 AM | | procedure are in the | | | | PDT | | results section. | + +--------+ + + + documented in this encounter Results XR Abdomen AP (12/22/2019 12:00 AM PDT) + + | Specimen [...]
--- OUTSIDE RECORDS SUMMARY | ~2020-01-23 | XMS | Encounter Summary ---
Demographics + + + | Address | [address] | | | [place] [address] | + + + | Home Phone | | + + + | Preferred Language | Unknown | + + + | Marital Status | | + + + | Voodoo Affiliation | 1013 | + + + | Race | Unknown | + + + | Ethnic Group | Unknown | + + + Author + + + | Author | [facility] | | | and [place] | + + + | Organization | [facility] | | [...] | | | | | [place] [address] | | + + + + + | Melissa Daley | ECON | [address] | | | | | [place] [address] | | + + + + + Care Team Providers + +------+ + | Care Rouge Mixer Name | Role | Phone | + +------+ + | Jona Deal MD | PCP | | + +------+ + Reason for Referral Diagnostic/Screening (Routine) +--------+--------+ + + + + | Status | Reason | Specialty | Diagnoses / | Referred By | Referred To | | | | | Procedures | Contact | Contact | +--------+--------+ + + + + | Closed | | Radiology | Diagnoses | | [address] | | | | | BOOP | [place], | [address] | | | | | (bronchiolit | Carmelita B, | [place], | | | | | is | MD [address] | [place] [address] | | | | | obliterans | [address] | Phone: | | | | | with | [place], | [phone] | | | | | organizing | [place] [address] | Fax: | | | | | pneumonia) | | [phone] | | | | | (HCC) | | | | | | | Procedures | | | | | | | CT Chest wo | | | | | | | Contrast | | | +--------+--------+ + + + + Reason for Visit Diagnostic/Screening (Routine) +--------+--------+ + + + + | Status | Reason | Specialty | Diagnoses / | Referred By | Referred To | | | | | Procedures | Contact | Contact | +--------+--------+ + + + + | Closed | | Radiology | Diagnoses | | [address] | | | | | BOOP | [place], | [address] | | | | | (bronchiolit | Carmelita B, | [place], | | | | | is | MD [address] | [place] [address] | | | | | obliterans | [address] | Phone: | | | | | with | [place], | [phone] | | | | | organizing | [place] [address] | Fax: | | | | | pneumonia) | | [phone] | | | | | (HCC) | | | | | | | Procedures | | | | | | | CT Chest wo | | | | | | | Contrast | | | +--------+--------+ + + + + Encounter Details +--------+ + + + + | Date | Type | Department | Care Team | Description | +--------+ + + + + | 01/12/ | Hospital | [facility] | Mike, | BOVASILIY (bronchiolitis | | 2014 | Encounter | MED CTR [address] | Carmelita Penny MD | obliterans with | | | | [place], | | organizing | | | | [place] [address] | | pneumonia) ([facility]) | | | | [phone] | | | +--------+ + + + [...] encounter Progress Notes Carmelita Mckeon MD - 02/06/2014 9:03 AM PDT Quick Note: Please let the patient know that their chest CT showed no evidence of active disease. It d id show some evidence of air trapping, which could be related to his prior illness. It also showed calcifications, which could be related to a prior fungal infection (which may have be en what started this). If he is interested, to get a better functional assessment of his marito gs, he could do breathing tests, and see where he is at. Otherwise, I would suggest follow u p in 1 year for a recheck if he does not want to pursue that. documented in this encounter Plan of Treatment +--------+---------+ + + + | Date | Type | Specialty | Care Team | Description | +--------+---------+ + + + | 01/21/ | Office | Urology | Kiko Garrido, | | | 2020 | Visit | | MD Jorge A HENRIQUEZ | | | | | | [place] | | | | | | [address] | | | | | | | | +--------+---------+ + + + documented as of this encounter Procedures + +--------+ + + + | Procedure Name | Priori | Date/Time | Associated Diagnosis | Comments | | | ty | | | | + +--------+ + + + | CT CHEST WO CONTRAST | Routin | 01/12/2014 | BOOP | Results for this | | | e | 11:50 AM | (bronchiolitis | procedure are in the | | | | PDT | obliterans with | results section. 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 | | | [facility]. TECHNIQUE: Axial images are obtained from | | | thoracic inlet to upper abdomen without contrast. DOSE: DLP 351 | | | mGy-cm FINDINGS: Lungs: There is been very near complete | | | resolution of the areas of scattered consolidation in both lungs. | | | There are areas of mosaic attenuation seen within all lobes. Mild | | | bilateral lower lobe intralobular septal thickening. This is | | | similar to what was seen previously. There is some bronchiectasis | | | involving predominantly th the lower lobes and the lingula. There | | | are linear opacities in the right lower lobe, lingula, and | | | superolateral left lower lobe. These have a scarlike appearance. | | | There is some residual scattered pleural thickening bilaterally. | | | There are no pleural effusions. No distinct pulmonary nodules. | | | Heart and mediastinum: There is been interval decrease in size of the | | | mediastinal lymph nodes. Several do remain and are mildly | | | hyperattenuating. No aneurysmal dilatation of the thoracic aorta. | | | It is a 4 vessel variant. There is enlargement of the right and | | | left main pulmonary arteries. There is no significant cardiac | | | chamber enlargement. No pericardial thickening. Chest wall: No | | | visible supraclavicular or axillary lymphadenopathy. Upper | | | abdomen: Partial visualization of a large cyst emanating from the | | | right kidney. The visible portion measures at least 10 cm. The | | | visible portion is simple. 5 mm nephrolith in the upper left | | | kidney. Bones: Diffuse confluent osteophytes consistent with DISH. | | | No significant compression deformities. The suspicious bone | | | lesions. There is a right eccentric focal partially calcified disc | | | protrusion which does impact the right subarticular recess at T12-L1. | | | IMPRESSION - There are areas of mosaic attenuation | | | throughout both lungs. These can be seen in the setting of altered | | | perfusion or small airways disease. The interlobular septal | | | thickening may represent underlying interstitial lung disease or be | | | related to the bronchiectasis. Hyperdense lymph nodes. These can | | | be seen in infectious etiologies. Calcified lymph nodes can be | | | seen in pneumoconiosis, sarcoid, and many other entities. | | | Dictated and Signed by: Rakesh Guerrero MD Electronically signed: | | | 01/12/2014 3:11 PM | | + + + + + | Procedure Note | + + | Dante, Rad Results In - 01/12/2014 3:15 PM PDT EXAM: CT CHEST WITH CONTRAST:01/12/2014 | | 11:18 AMHISTORY: history of BOOP, now better, persistent scarring, and just never | | gotback to baselineCOMPARISON: CT chest dated May 17, 2012 from [place] | | [facility].TECHNIQUE: Axial images are obtained from thoracic inlet to upper | | abdomenwithout contrast.DOSE: DLP 351 mGy-cm FINDINGS: Lungs: There is been very near | | complete resolution of the areas of scatteredconsolidation in both lungs. There are | | areas of mosaic attenuation seen withinall lobes. Mild bilateral lower lobe | | intralobular septal thickening. This issimilar to what was seen previously. There is | | some bronchiectasis involvingpredominantly th the lower lobes and the lingula. There | | are linear opacities inthe right lower lobe, lingula, and superolateral left lower lobe. | | These have ascarlike appearance. There is some residual scattered pleural | | thickeningbilaterally. There are no pleural effusions. No distinct pulmonary | | nodules.Heart and mediastinum: There is been interval decrease in size of themediastinal | | lymph nodes. Several do remain and are mildly hyperattenuating. Noaneurysmal | | dilatation of the thoracic aorta. It is a 4 vessel variant. Thereis enlargement of the | | right and left main pulmonary arteries. There is nosignificant cardiac chamber | | enlargement. No pericardial thickening.Chest wall: No visible supraclavicular or | | axillary lymphadenopathy.Upper abdomen: Partial visualization of a large cyst emanating | | from the rightkidney. The visible portion measures at least 10 cm. The visible portion | | issimple. 5 mm nephrolith in the upper left kidney.Bones: Diffuse confluent | | osteophytes consistent with DISH. No significantcompression deformities. The | | suspicious bone lesions. There is a righteccentric focal partially calcified disc | | protrusion which does impact the rightsubarticular recess at T12-L1.IMPRESSION - There | | are areas of mosaic attenuation throughout both lungs. These can be seenin the setting | | of altered perfusion or small airways disease. The interlobularseptal thickening may | | represent underlying interstitial lung disease or berelated to the | | bronchiectasis.Hyperdense lymph nodes. These can be seen in infectious etiologies. | | Calcifiedlymph nodes can be seen in pneumoconiosis, sarcoid, and many other | | entities.Dictated and Signed by: Rakesh Guerrero MD Electronically signed: 01/12/2014 | | 3:11 PM | | | |Upper abdomen: Partial visualization of a large cyst emanating from the right | |kidney. The visible portion measures at least 10 cm. The visible portion is | |simple. 5 mm nephrolith in the upper left kidney. | | | |Bones: Diffuse confluent osteophytes consistent with DISH. No significant | |compression deformities. The suspicious bone lesions. There is a right | |eccentric focal partially calcified disc protrusion which does impact the right | |subarticular recess at T12-L1. | | | |IMPRESSION - | | | |There are areas of mosaic attenuation throughout both lungs. These can be seen | |in the setting of altered perfusion or small airways disease. The interlobular | |septal thickening may represent underlying interstitial lung disease or be | |related to the bronchiectasis. | | | |Hyperdense lymph nodes. These can be seen in infectious etiologies. Calcified | |lymph nodes can be seen in pneumoconiosis, sarcoid, and many other entities. 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
--- OUTSIDE RECORDS SUMMARY | ~2020-01-23 | XMS | Encounter Summary ---
Demographics + + + | Address | [address] | | | [place] [address] | + + + | Home Phone | | + + + | Preferred Language | Unknown | + + + | Marital Status | | + + + | Sabianist Affiliation | 1013 | + + + | Race | Unknown | + + + | Ethnic Group | Unknown | + + + Author + + + | Author | [facility] | | | and [place] | + + + | Organization | [facility] | | | and [...] | | | | | [place] [address] | | + + + + + | Melissa Sheldon | ECON | [address] | | | | | [place] [address] | | + + + + + Care Team Providers + +------+ + | Care Quality Nurse Name | Role | Phone | + +------+ + | Jona Deal MD | PCP | | + +------+ + Encounter Details +--------+ + + + + | Date | Type | Department | Care Team | Description | +--------+ + + + + | 08/16/ | Hospital | [facility] | [place], | BOOP (bronchiolitis | | 2012 - | Encounter | MED CTR XRAY [address] | Carmelita Penny MD | obliterans with | | | | Only [place] | | organizing | | 08/18/ | | [place] [address] | | pneumonia) (HCC) | | 2012 | | [phone] | | | +--------+ + + + [...] +---------+ + + | predniSONE | Take 1 tablet by | 7 | 0 | 08/16/19 | | | (DELTASONE) 2.5 MG | mouth Every other | tablet | | 13 | 3 | | tablet | day for 14 days. | | | | | | | Take every other day | | | | | | | for two weeks, then | | | | | | | stop prednisone | | | | | | | completely. | | | | | + + [...] | | | | | [place] | | | | | | [address] | | | | | | | | +--------+---------+ + + + documented as of this encounter Procedures + +--------+ + + + | Procedure Name | Priori | Date/Time | Associated Diagnosis | Comments | | | ty | | | | + +--------+ + + + | XR CHEST PA AND | Routin | 08/16/2012 | BOOP | Results for this | | LATERAL | e | 11:14 AM | (bronchiolitis | procedure are in [...] Performed At | + + + | [facility] | [place] | | Department [address] [facility] | [facility] | | [ rep [address]] [ rep [facility] | | [facility]] Signed | - IMAGING | | | | | Patient Name: RON SHELDON V Physician: | | | DOROTEO. : 1935 Age: 77 Sex: M Unit #: [id number] | | | Exam Date: 08/16/12 [place] [facility] [place] | | | Report #: [id number] Page: | | | %(RAD)RES..mtdd.print.filter("pg") of %(RAD) | | | RES..mtdd.print.filter("tpg") | | | | | | Accession Number: [id number] | | | CHEST X-RAY CLINICAL HISTORY: [...] Transcribed Date/Time: | | | 08/16/2012 11:23 Rocket Test Fire Worker: [email or web address] | | | <<Signature on File>> | | | Mart | | | MD [place]08/16/12 1439 <Electronically signed by Mart Boyle MD> | | | Mart Boyle MD 08/16/12 1114 Rocket Test Fire Worker: Cayetano | | | [id number]/25/13 1123 Carmelita Mckeon MD | | | | | + + + + + + + + | Performing | Address | City/State/Zipcode | Phone Number | | Organization | | | | + + + + + | [facility] | [address] 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
--- OUTSIDE RECORDS SUMMARY | ~2020-01-23 | XMS | Encounter Summary ---
Demographics + + + | Address | [address] | | | [place] [address] | + + + | Home Phone [...] | | | | | [place] [address] | | + + + + + | Melissa Daley | ECON | [address] | | | | | [place] [address] | | + + + + + Care Team Providers + +------+ + | Care Coremaking Supervisor Name | Role | Phone | [...] + + | 12/18/ | Telephone | [facility] | Rakesh Ruiz MD | Referral | | 2017 | | GASTROENTEROLOGY | [address], [place] | (colonoscopy not | | | | [address] [place] | [address] [place], [place] | needed unless | | | | [address] [place], [place] | [address] | symptoms.) | | | | [address] | | | | | | [phone] | | | +--------+ + + + [...] [place] | | | | | | [id number] | | | | | | | | +--------+---------+ + + + documented as of this encounter Visit Diagnoses Not on filedocumented in this encounter"
--- OUTSIDE RECORDS SUMMARY | ~2020-01-23 | XMS | Encounter Summary ---
Demographics + + + | Address | [address] | | | [place] [address] | + + + | Home Phone | | + + + | Preferred Language | Unknown | + + + | Marital Status | | + + + | Nondenominational Affiliation | 1013 | + + + | Race | Unknown | + + + | Ethnic Group | Unknown | + + + Author + + + | Author | [facility] | | | and [place] | + + + | Organization | [facility] | | [...] | | | | | [place] [address] | | + + + + + | Melissa Sheldon | ECON | [address] | | | | | [place] [address] | | + + + + + Care Team Providers + +------+ + | Care Hat Cleaner Name | Role | Phone | + [...] Description | +--------+---------+ + + + | 08/16/ | Office | [facility] | Mike, | BOVASILIY (bronchiolitis | | 2013 | Visit | PULMONARY [address] | Carmelita Penny MD | obliterans with | | | | [place], | | organizing | | | | [place] [address] | | pneumonia) ([facility]) | | | | [phone] | | (Primary Dx); | | | | | | Nocturnal hypoxemia; | | | | | | Allergic rhinitis | +--------+---------+ + + + Social [...] + + + | Blood Pressure | 142/80 | 08/16/2012 11:03 AM | | | | | PST | | + + + + + | Pulse | 65 | 08/16/2012 11:03 AM | | | | | PST | | + + + + + | Temperature | - | - | | + + + + + | Respiratory Rate | - | - | | + + + + + | Oxygen Saturation | 96% | 08/16/2012 11:03 AM | | | | | PST | | + + + + + | Inhaled Oxygen | - | - | | | Concentration | | | | + + + + + | Weight | 103.6 kg (228 lb 8 | 08/16/2012 11:03 AM | | | | oz) | PST | | + + + + + | Height | 175.3 cm (5' 9.02") | 08/16/2012 11:03 AM | | | | | PST | | + + + + + | Body Mass Index | 33.73 | 08/16/2012 11:03 AM | | | | | PST | | + + + + + documented in this encounter Patient Instructions Patient Instructions Carmelita Mckeon MD - 08/16/2012 11:59 AM PSTDrop prednisone to 1 2.5mg tablet every other day for 2 weeks and then stop. documented in this encounter Progress Notes Carmelita Mckeon MD - 08/16/2012 11:38 AM PSTFormatting of this note might be differe nt from the original. Pulmonary Follow Up HPI Ron Sheldon is a 77 y.o. male patient of Jona Deal here today for follow u p of BOOP. At their last visit, we tapered his prednisone to 5 mg every other day. Since their last vi sit he feels like he has been well. They have not had any acute illnesses. They are currentl y on a regimen of prednisone 5 mg every other day. They do feel like this medication regime n is working for them. They return today for routine follow up. He notes that Dr. Toyin gamez d also double his metformin dose to 500mg twice a day. Currently they are able to walk 1-2 miles at their own pace on level ground. They are exerc ising regularly, weather permitting. He has a treadmill, but he does not use it. They are no t enrolled in cardiac/pulmonary rehabilitation or other physical therapy. He does not cough chronically, and does not produce mucous. They have not had hemoptysis. He has been evaluated for nocturnal oxygen and does use it. They are currently on 1 LPM at night. They report good compliance. He is eager to get off of this. They have not had symptoms of nasal congestion, runny nose or post nasal drip. He feels like he is pretty close to his baseline state. Blood sugars have improved. He is mostly running close to 100. He has had one sugar at 150 and one at 227 in the last couple of weeks. Past Medical History Past Medical History Diagnosis [...] Morphine Medications: Outpatient Encounter Prescriptions as of 08/16/2012 Medication Sig Dispense Refill metFORMIN (GLUCOPHAGE) 500 mg tablet Take 500 mg by mouth 2 times daily. predniSONE (DELTASONE) 10 mg tablet Take 0.5 tablets by mouth Every other day. DISCONTD: metFORMIN (GLUCOPHAGE) 500 mg tablet Take 1 tablet by mouth daily (with break fast). 30 tablet 0 insulin aspart (NOVOLOG FLEXPEN) 100 units/mL injection [...] eac h nostril daily 16 g 12 BD PEN NEEDLE DONELL U/F 32G X 4 MM MISC DISCONTD: omeprazole (PRILOSEC) 20 mg capsule Take 20 mg by mouth 2 times daily. Review of Systems Constitutional: Denies fever, chills, sweats. His weight has been stable, he is back to hi s pre hospital weight. Sleep: Denies difficulty sleeping, excessive snoring, and daytime sleepiness. Mild snoring . Eyes: Denies vision change and eye irritation. ENT: Denies earache, decreased hearing, nasal congestion, nosebleeds, sore throat, and ho arseness. Hearing improved with new hearing aids. Resp: See HPI. CV: Denies chest pain, palpitations, syncope, and peripheral edema. GI: Gets diarrhea on the higher dose metformin. : Denies difficulty emptying bladder and nocturia. Objective BP 142/80 | Pulse 65 | Ht 1.753 m (5' 9.02") | Wt 103.647 kg (228 lb 8 oz) | BMI 33.73 kg/m 2 | SpO2 96% General Appearance: Alert, cooperative, no distress, appears stated age Head: Normocephalic, without obvious abnormality, atraumatic Eyes: PERRL, conjunctiva clear, no scleral icterus, EOM's intact Ears: New hearing aids in place, he can hear better, ears not examined otherwise Nose: Nares normal, septum midline, mucosa normal, no drainage Mouth: No oral lesions or exudate Neck: Supple, symmetrical, no adenopathy Lungs: No accessory muscle use, breath sounds are somewhat diminished bilaterally, no whe ezes, crackles or rhonchi Chest Wall: No deformity Heart: Regular rate and rhythm, no murmur, rub or gallop Abdomen: Soft, non-tender, non-distended Extremities: No cyanosis, clubbing, trace left lower extremity edema, 1+ right lower extre mity edema Pulses: Radial pulses 2+ and symmetric Skin: Warm and dry Lymph nodes: Cervical and supraclavicular nodes normal Data: Chest x-ray was done prior to clinic today and was reviewed and interpreted in clinic today . It shows continued clearing of previously seen GGO and consolidation. There remains a line ar opacity on the right. Immunization History Administered Date(s) Administered INFLUENZA, PRESERVATIVE FREE IM 05/25/2012 Pneumococcal (Adult) 06/23/2002, 07/21/2012 Assessment /Plan Mr. 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 Diagnoses and associated orders for this visit: Boop (bronchiolitis obliterans with organizing pneumonia) Clinically he has continued to improve, and his chest x-ray continues to clear. That being said he does have a persistent abnormality on the right side, that is consistent with scarr ing, and the overall appearance of his chest x-ray is still somewhat dizzy. I think that we can safely stop his prednisone, though I have asked him to taper off dropping to 2-1/2 mg e very other day for 2 weeks and then stopping. We will do a followup chest x-ray with his ne xt appointment, and then likely plan for follow up CT scan. - XR Chest PA and Lateral; 6 weeks - predniSONE (DELTASONE) 2.5 MG tablet; Take 1 tablet by mouth Every other day for 14 d ays. Take every other day for two weeks, then stop prednisone completely. Nocturnal hypoxemia Last overnight oximetry showed that he still required a minimal amount of oxygen. I have l eft him on 1 L per minute for now, and will recheck in the future. Allergic rhinitis He denies any for the nasal symptoms on his regimen of fluticasone nasal spray. Return to clinic in 6 weeks, or sooner with concerns. CC: Jona Deal [...] [place] | | | | | | [id number] | | | | | | | | +--------+---------+ + + + documented as of this encounter Results XR Chest PA and Lateral (09/29/2012 12:27 PM PDT) + + | Specimen | + + | | + + + + + | Narrative | Performed At | + + + | Merged With [facility] | [place] | | Department [address] [facility] | [facility] | | [ rep [address]] [ rep [facility] | | st zip] Signed | - IMAGING | | | | | Patient Name: RON SHELDON V Physician: | | | DOROTEOAna Luisa : 1935 Age: 77 Sex: M Unit #: [id number] | | | Exam Date: 09/29/12 [place] [facility] | | | Report #: [id number] Page: | | | %(RAD)RES..mtdd.print.filter("pg") of %(RAD) | | | RES..mtdd.print.filter("tpg") | | | | | | Accession Number: [id number] | | | CHEST, PA AND LATERAL, 09/29/2012 CLINICAL HISTORY: | | | FOLLOWUP OF BOOP. COMPARISON: Numerous previous chest | | | x-rays, most recently 08/16/2012. FINDINGS: PA and | | | lateral views of the chest were obtained. Again visualized are | | | diffuse reticulonodular opacities throughout the bilateral lungs | | | with some thicker scar in the right mid lung that is more prominent. | | | There is also some mildly thick scar in the bilateral lung bases, | | | stable. Cardiomediastinal silhouette is normal. The aorta is | | | mildly tortuous. There is moderate spondylosis of the thoracic | | | spine with some bridging osteophytes. IMPRESSION: | | | 1. 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 2. THICKER SCAR OF RIGHT MID | | | LUNG, INCREASED SLIGHTLY. 3. MILD SCARRING OF BILATERAL | | | LUNG BASES, STABLE. Dictated Date/Time: 09/29/2012 12:27 | | | Transcribed Date/Time: 09/29/2012 12:33 Fine Arts Instructor: | | | MR.BS <<Signature on File>> | | | Mart | | | MD [place]09/29/12 1551 <Electronically signed by Mart Boyle MD> | | | Mart Boyle MD 09/29/12 1227 Fine Arts Instructor: [employer] | | | Tklwaogmkyzzw09/10/13 1233 Carmelita Mckeon MD | | | | | + + + + + + + + | Performing | Address | City/State/Zipcode | Phone Number | | Organization | | | | + + + + + | [facility] | [address] | [place] | [phone] | | [facility] | | [address] | | | - IMAGING | | | | + + + + + documented in this encounter Visit Diagnoses + + | Diagnosis | + + | BOOP (bronchiolitis obliterans with organizing pneumonia) (HCC) - Primary Other | | specified alveolar and parietoalveolar pneumonopathies | + + | Nocturnal hypoxemia Hypoxemia | + + | Allergic rhinitis Allergic rhinitis, cause unspecified | + + documented in this encounter
--- OUTSIDE RECORDS SUMMARY | ~2020-01-23 | XMS | Encounter Summary ---
Demographics + + + | Address | [address] | | | [place] [address] | + + + | Home Phone [...] | | | | | [place] [address] | | + + + + + | Melissa Daley | ECON | [address] | | | | | [place] [address] | | + + + + + Care Team Providers + +------+ + | Care Arts Therapist Name | Role | Phone | + [...] | | | | | | [place] [address] | | | | | | [phone] | | | +--------+ + + + [...] [place] | | | | | | [id number] | | | | | | | | +--------+---------+ + + + documented as of this encounter Visit Diagnoses Not on filedocumented in this encounter"
--- OUTSIDE RECORDS SUMMARY | ~2020-01-23 | XMS | Encounter Summary ---
Demographics + + + | Address | [address] | | | [place] [address] | + + + | Home Phone | | + + + | Preferred Language | Unknown | + + + | Marital Status | | + + + | Tenriism Affiliation | 1013 | + + + | Race | Unknown | + + + | Ethnic Group | Unknown | + + + Author + + + | Author | [facility] | | | and [place] | + + + | Organization | [facility] | | | [...] | | | | | [place] [address] | | + + + + + | Melissa Daley | ECON | [address] | | | | | [place] [address] | | + + + + + Care Team Providers + +------+ + | Care Location And Measurement Technician Name | Role | Phone | [...] [place] | | | | | [place] | | [address] Phone: | | | | | CYSTO/URETER | | [phone] | | | | | O | | Fax: | | | | | W/LITHOTRIPS | | [phone] | | | | | Y &LIZ [...] + + | 01/03/ | Hospital | [facility] | Kiko Garrido, | | | 2019 | Encounter | MED CTR XRAY [address] | [address] | | | | | [address] | [place] | | | | | [place] [address] | [address] | | | | | [phone] | | | +--------+ + + + [...] | | | | | [place] | | | | | | [address] | | | | | | | [...] Procedure Note | + + | Dante, [id number] - 01/04/2020 8:39 PM PDT | | [...]
--- OUTSIDE RECORDS SUMMARY | ~2020-01-23 | XMS | Encounter Summary ---
Demographics + + + | Address | [address] | | | [place] [address] | + + + | Home Phone | | + + + | Preferred Language | Unknown | + + + | Marital Status | | + + + | [employer] Affiliation | 1013 | + + + [...] | | | | | [place] [address] | | + + + + + | Melissa Daley | ECON | [address] | | | | | [place] [address] | | + + + + + Care Team Providers + +------+ + | Care Gas Pumping Station Helper Name | Role | Phone | + +------+ + PCP | Unavailable | + +------+ + Encounter Details +--------+ + + + + | Date | Type | Department | Care Team | Description | +--------+ + + + + | 02/01/ | Hospital | [facility] | | | | 1991 | Encounter | MED CTR XRAY [address] | | | | | | [place] | | | | | | [place] [address] | | | | | | [phone] | | | +--------+ + + + [...] [place] | | | | | | [id number] | | | | | | | | +--------+---------+ + + + documented as of this encounter Visit Diagnoses Not on filedocumented in this encounter"
--- OUTSIDE RECORDS SUMMARY | ~2020-01-23 | XMS | Encounter Summary ---
Demographics + + + | Address | [address] | | | [place] [address] | + + + | Home Phone [...] | | | | | [place] [address] | | + + + + + | Melissa Sheldon | ECON | [address] | | | | | [place] [address] | | + + + + + Care Team Providers + +------+ + | Care Sail Lay Out Worker Name | Role | Phone | [...] Description | +--------+---------+ + + + | 06/23/ | Office | [facility] | Mike, | BOOP (bronchiolitis | | 2012 | Visit | PULMONARY [address] | Carmelita Pneny MD | obliterans with | | | | [place], | | organizing | | | | [place] [address] | | pneumonia) (HCC) | | | | [phone] | | (Primary Dx); | | | | | | Nocturnal hypoxemia; | | | | | | 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) | +--------+---------+ + + + Social History [...] + | Blood Pressure | 130/80 | 06/23/2012 10:15 AM | | | | | PST | | + + + + + | Pulse | 69 | 06/23/2012 10:15 AM | | | | | PST | | + + + + + | Temperature | - | - | | + + + + + | Respiratory Rate | - | - | | + + + + + | Oxygen Saturation | 95% | 06/23/2012 10:15 AM | | | | | PST | | + + + + + | Inhaled Oxygen | - | - | | | Concentration | | | | + + + + + | Weight | 103.5 kg (228 lb 3.2 | 06/23/2012 10:15 AM | | | | oz) | PST | | + + + + + | Height | 175.3 cm (5' 9.02") | 06/23/2012 10:15 AM | | | | | PST | | + + + + + | Body Mass Index | 33.68 | 06/23/2012 10:15 AM | | | | | PST | | + + + + + documented in this encounter Patient Instructions Patient Instructions Carmelita Mckeon MD - 06/23/2012 11:07 AM PSTPrednisone at 20mg until 06/27 then drop to 10mg a day. Chest x-ray today and with appt. In 4 weeks. Remain on oxygen at night a 2LPM. Electronically signed by Carmelita Mckeon MD at 07/2012 11:08 AM PST documented in this encounter Progress Notes Carmelita Mckeon MD - 06/23/2012 10:39 AM PSTFormatting of this note might be differe nt from the original. Pulmonary Follow Up HPI Ron Sheldon is a 77 y.o. male patient of Jona Deal here today for follow u p of bronchiolitis obliterans. At their last visit, we dropped his prednisone to 40mg a day and then he dropped to 30mg on the and 20mg a day on the . He does note he occasionally has gotten dizzy with abdirahman hidalgo around. His oxygen level has been running in the 90s, and he has not had any episodes o f hypoglycemia that he knows of. He is checking his blood sugar regularly. He is wearing his oxygen at night, at 2LPM. He feels like his breathing has been good, and is getting better all the time. His 2 week follow up was cancelled as I was out ill and he now comes in today for follow up. He is not coughing other than if he gets too much saliva in his mouth. He is not coughing u p any blood or mucous. He is having much less issues with bloody nose. He notes his nasal congestion is pretty goo d. He is still using the nasal spray. He notes his left nostril drips a lot especially after a meal. Currently they are able to walk 1/4- 1/2 mile at their own pace on level ground. They are e xercising regularly. He is walking regularly. Past Medical History Past Medical History Diagnosis [...] Morphine Medications: Outpatient Encounter Prescriptions as of 06/23/2012 Medication Sig Dispense Refill insulin regular (HUMULIN R, NOVOLIN R) 100 units/mL injection Inject under the skin 3 times daily (before meals). Sliding scale doxazosin (CARDURA) 4 mg tablet Take 4 mg by mouth 2 times daily. testosterone (ANDROGEL) 50 mg/5 g (1%) gel Inject 200 mg of testosterone into the muscl e Daily. Every three weeks. predniSONE (DELTASONE) 10 mg tablet Taking 2 tablets by mouth daily. 120 tablet 1 metFORMIN (GLUCOPHAGE) 500 mg tablet Take 1 [...] Systems Constitutional: Denies fever, chills, sweats. Has been regaining weight that he has lost. Sleep: Has been snoring a little bit. He is somewhat tired. Eyes: Denies vision change and eye irritation. ENT: Denies earache, sore throat, and hoarseness. Hearing loss is slightly worse since get ting sick. Resp: See HPI. CV: Denies chest pain, palpitations, syncope, and peripheral edema. GI: Denies heartburn, nausea, vomiting, and abdominal pain. : Denies difficulty emptying bladder and nocturia. Musculoskeletal: Denies joint pain/stiffness, joint swelling, and muscle cramps. He felt li ke his left leg was somewhat weak after going home from the hospital. It is improving with w alking. Objective BP 130/80 | Pulse 69 | Ht 1.753 m (5' 9.02") | Wt 103.511 kg (228 lb 3.2 oz) | BMI 33.68 kg /m2 | SpO2 95% General Appearance: Alert, cooperative, no distress, appears stated age Head: Normocephalic, without obvious abnormality, atraumatic Eyes: PERRL, conjunctiva clear, no scleral icterus, EOM's intact Ears: Markedly diminished hearing, bilateral hearing aids in place and not removed Nose: Nares normal, septum midline, mucosa edematous without drainage, turbinate hypertroph y Mouth: No oral lesions or exudate Neck: Supple, symmetrical, no adenopathy Lungs: No accessory muscle use, breath sounds are diminished bilaterally, no wheezes, crane chaser ckles or rhonchi Chest Wall: No deformity Heart: Regular rate and rhythm, no murmur, rub or gallop Abdomen: Soft, mildly obese, non-tender, non-distended Extremities: No cyanosis or clubbing, trace lower extremity edema Pulses: Radial pulses 2+ and symmetric Skin: Warm and dry Lymph nodes: Cervical and supraclavicular nodes normal Neurologic: Gait normal Data: Chest x-ray was done after his last clinic visit and was reviewed and interpreted in clinic today. It shows improvement in the bilateral patchy groundglass in consolidative opacities. Overnight oximetry was performed on room air, and he did show desaturation on this. Assessment /Plan Mr. 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 Boop (bronchiolitis obliterans with organizing pneumonia) Clinically he is improved and he is tolerating fairly rapid taper and steroids. Last chest x-ray did show improvement. We will repeat chest x-ray today, though I expect his chest x- ray to show lag behind his clinical picture. We will taper him down to 10 mg a day of predn isone on June 27, though I would like him to stay on 10 mg of prednisone at that point. F rom 10 mg of prednisone I would like to taper him fairly slowly to prevent any rebound. I w ill plan on seeing him back in clinic in about 4 weeks with a repeat chest x-ray at that true e. I do expect it takes several months for his chest x-ray to clear. - predniSONE (DELTASONE) 10 mg tablet; Continue 20mg a day until 06/27 then drop to 10mg a da y. - XR Chest PA and Lateral; today and in 4 weeks Nocturnal hypoxemia He continues on oxygen at night at 2 L per minute, and I have asked him to continue this fo r now. Once he is completely over his acute illness, we can recheck his oxygen saturation o n room air. It would not surprise me if he still required oxygen, and I think we still need to address the question of whether or not he needs a sleep study. This however should not be done in to his acute illness has resolved. 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 I did refer them back to his primary care provider, who is taking excellent care of his ot er medical issues. I did advice his however, that the metformin would not induce hypog lycemia. I also did refill his NovoLog flex pen, and insulin testing strips as they're abou t to run out of these so they did not have to contact his primary care provider for these. His blood sugars have been improved with the decrease in steroids. - insulin aspart (NOVOLOG FLEXPEN) 100 units/mL injection; Sliding Scale as previously writ ten. - glucose blood test strips (ONE TOUCH ULTRA TEST) strip; Use to test blood sugar 4 time s daily. Return to clinic in 4 weeks with repeat chest x-ray at that time. CC: Jona Deal 5 :35 PM PSTdocumented in this encounter Plan of Treatment +--------+---------+ + + + | Date | Type | Specialty | Care Team | Description | +--------+---------+ + + + | 01/21/ | Office | Urology | Kiko Garrido, | | | 2020 | Visit | | MD Jorge A HENRIQUEZ | | | | | | [place] | | | | | | [address] | | | | | | | | +--------+---------+ + + + documented as of this encounter Results XR Chest PA and Lateral (07/21/2012 11:21 AM PST) + + | Specimen | + + | | + + + + + | Narrative | Performed At | + + + | [facility] | [place] | | Department [address] [facility] [place] | [facility] | | [ [address]] [ rep ct [facility] | | st zip] Signed | - IMAGING | | | | | Patient Name: RON SHELDON V Physician: | | | E. : 1935 Age: 77 Sex: M Unit #: [id number] | | | Exam Date: 07/21/12 Location: [facility] [place] | | | Report #: [id number] Page: | | | %(RAD)RES..mtdd.print.filter("pg") of %(RAD) | | | RES..mtdd.print.filter("tpg") | | | | | | Accession Number: [id number] | | | PA AND LATERAL TWO [...] Transcribed Date/Time: | | | 07/21/2012 11:27 Cableman: | | | <<Signature on File>> | | | Kiko | | | Melina Hair MD07/21/121920 <Electronically signed by Kiko Summers | | | Laxmi TERAN> Kiko Hair MD 07/21/121 | | | Cableman: CINEPASS Hrsiigkhimhds87/30/13 1127 | | | Carmelita Mckeon MD | | + + + + + + + + | Performing | Address | City/State/Zipcode | Phone Number | | Organization | | | | + + + + + | [facility] | [address] | [place], [place] | [phone] | | [facility] | | [address] | | | - IMAGING | | | | + + + + + XR Chest PA and Lateral (06/23/2012 1:39 PM PST) + + | Specimen | + + | | + + + + + | Narrative | Performed At | + + + | [facility] | [place] | | Department [address] [place] | [facility] | | [ rep [address]] [ rep ct [facility] | | st zip] Signed | - IMAGING | | | | | Patient Name: RON SHELDON V Physician: | | | OFFE. : 1935 Age: 77 Sex: M Unit #: [id number] | | | Exam Date: 06/23/12 Location: [facility] [place] | | | Report #: [id number] Page: | | | %(RAD)RES..mtdd.print.filter("pg") of %(RAD) | | | RES..mtdd.print.filter("tpg") | | | | | | Accession Number: [id number] | | | TWO-VIEW CHEST CLINICAL HISTORY: [...] Transcribed Date/Time: 06/23/2012 13:44 | | | Cableman: <<Signature on File>> | | | | | | Tan Keenan MD06/23/12 1729 <Electronically signed by | | | Tan Keenan MD> Tan Keenan MD 06/23/12 | | | 1339 Cableman: CINEPASS Tlkslndckrkqk99/02/13 1344 | | | Carmelita Mckeon MD | | + + + + + + + + | Performing | Address | City/State/Zipcode | Phone Number | | Organization | | | | + + + + + | [facility] | [address] | [place] | [phone] | | [facility] | | [address] | | | - IMAGING | | [...]
--- OUTSIDE RECORDS SUMMARY | ~2020-01-23 | XMS | Encounter Summary ---
Demographics + + + | Address | [address] | | | [place] [address] | + + + | Home Phone | | + + + | Preferred Language | Unknown | + + + | Marital Status | | + + + | Rastafari Affiliation | 1013 | + + + | Race | Unknown | + + + | Ethnic Group | Unknown | + + + Author + + + | Author | [facility] | | | and [place] | + + + | Organization | [facility] | | | [...] | | | | | [place] [address] | | + + + + + | Melissa Daley | ECON | [address] | | | | | [place] [address] | | + + + + + Care Team Providers + +------+ + | Care Casino Host Name | Role | Phone | + +------+ + PCP | Unavailable | + +------+ + Encounter Details +--------+ + + + + | Date | Type | Department | Care Team | Description | +--------+ + + + + | 02/23/ | Hospital | [facility] | | | | 1991 | Encounter | MED CTR XRAY [address] | | | | | | [place] | | | | | | [place] [address] | | | | | | [phone] | | | +--------+ + + + [...] [place] | | | | | | [address] | | | | | | | | +--------+---------+ + + + documented as of this encounter Visit Diagnoses Not on filedocumented in this encounter"
--- OUTSIDE RECORDS SUMMARY | ~2020-01-23 | XMS | Encounter Summary ---
Demographics + + + | Address | [address] | | | [place] [address] | + + + | Home Phone | | + + + | Preferred Language | Unknown | + + + | Marital Status | | + + + | Judaism Affiliation | 1013 | + + + [...] | | | | | [place] [address] | | + + + + + | Melissa Daley | ECON | [address] | | | | | [place] [address] | | + + + + + Care Team Providers + +------+ + | Care Produce Laborer Name | Role | Phone | + +------+ + PCP | Unavailable | + +------+ + Encounter Details +--------+ + + + + | Date | Type | Department | Care Team | Description | +--------+ + + + + | 02/23/ | Hospital | [facility] | | | | 1991 | Encounter | MED CTR XRAY [address] | | | | | | [place] | | | | | | [place] [address] | | | | | | [phone] | | | +--------+ + + + [...] [place] | | | | | | [id number] | | | | | | | | +--------+---------+ + + + documented as of this encounter Visit Diagnoses Not on filedocumented in this encounter"
--- OUTSIDE RECORDS SUMMARY | ~2020-01-23 | XMS | Encounter Summary ---
Demographics + + + | Address | [address] | | | [place] [address] | + + + | Home Phone | | + + + | Preferred Language | Unknown | + + + | Marital Status | | + + + | Presybeterian Affiliation | 1013 | + + + [...] | | | | | [place] [address] | | + + + + + | Melissa Daley | ECON | [address] | | | | | [place] [address] | | + + + + + Care Team Providers + +------+ + | Care Agricultural Service Worker Name | Role | Phone | [...] | | | | | | [place] [address] | | | | | | [phone] | | | +--------+ + + + [...] [place] | | | | | | [address] | | | | | | | | +--------+---------+ + + + documented as of this encounter Visit Diagnoses Not on filedocumented in this encounter"
--- OUTSIDE RECORDS SUMMARY | ~2020-01-23 | XMS | Encounter Summary ---
Demographics + + + | Address | [address] | | | [place] [address] | + + + | Home Phone | | + + + | Preferred Language | Unknown | + + + | Marital Status | | + + + | Worship Affiliation | 1013 | + + + | Race | Unknown | + + + | Ethnic Group | Unknown | + + + Author + + + | Author | [facility] | | | and [place] | + + + | Organization | [facility] | | | [...] | | | | | [place] [address] | | + + + + + | Melissa Daley | ECON | [address] | | | | | [place] [address] | | + + + + + Care Team Providers + +------+ + | Care Pound Keeper Name | Role | Phone | + [...] | Respiratory failure | | | | [place], | | ([facility]); Chronic | | | | [place] [address] | | hypoxemic | | | | [phone] | | respiratory failure | | | | | | ([facility]); Pneumonia; | | | | | [...] | | | | | | [place], [place] | | | | | | [address] | | | | | | | [...]
--- OUTSIDE RECORDS SUMMARY | ~2020-01-23 | XMS | Encounter Summary ---
Demographics + + + | Address | [address] | | | [place] [address] | + + + | Home Phone | | + + + | Preferred Language | Unknown | + + + | Marital Status | | + + + | Adventist Affiliation | 1013 | + + + | Race | Unknown | + + + | Ethnic Group | Unknown | + + + Author + + + | Author | [facility] | | | and [place] | + + + | Organization | [facility] | | | [...] | | | | | [place] [address] | | + + + + + | Melissa Daley | ECON | [address] | | | | | [place] [address] | | + + + + + Care Team Providers + +------+ + | Care Obstetrician Name | Role | Phone | + +------+ + | Jona Mcintosh MD | PCP | | + +------+ + Encounter Details +--------+ + + + + | Date | Type | Department | Care Team | Description | +--------+ + + + + | 04/30/ | Emergency | [facility] | Anthony Ramirez | Syncope, vasovagal | | 2013 | | [facility] | MD [address] | | | | | EMERG[facility]Y CENTER | [place], | | | | | [address] [facility] | [place] [address] | | | | | [place], [place] | [phone] | | | | | [address] | | | | | | [phone] | | | +--------+ + + + [...] Author: Cecelia Alamo Service: (none) Author Type: Second Hand Paper Machine Filed: 04/30/141246 Date of Service: 04/30/141246 Status: Signed Medical Supervisor: Cecelia Alamo (Second Hand Paper Machine) EKG completed, results given to Dr Hugh Alamo 04/30/141246 Anthony Awan MD - 04/30/2014 12:04 PM PST ED Provider Notes by Anthony Ramirez MD at 04/30/14 1204 Author: Anthony Ramirez MD Service: Emergency Department Author Type: Physician Filed: 04/30/14 1758 Date of Service: 04/30/14 120 Status: Signed Medical Supervisor: Anthony Ramirez MD (Physician) [facility] Department of Emergency Medicine 04/30/14 12:04 PM [...] complaints of syncope. Onset of symptoms was CRM TECHNICAL LEAD, which occ urred only once. The symptoms [...] diaphoresis, fever, cough, or congestion. No care CRM TECHNICAL LEAD. The pt reports he has never passed [...] sore throat CV/Resp: Negative for chest pain, zxjslxpgo-kc-jjtevl, cough GI: Positive for nausea Negative for [...] Value Ref Range Date/Time Troponin I, Lab [[id number]] Collected: 04/30/14 1134 Order Status: Completed Updated: 04/30/14 1205 Specimen Information: Blood TROPONIN I <0.020 0.00 - 0.10 ng/mL Cardiac Panel [[id number]] (Abnormal) Collected: 04/30/14 1134 Order Status: Completed [...] For follow up [address] [place] [id number] [facility] Emergency Department If symptoms worsen [address] [place] [address] Discharge Medications: Discharge Medication List as of 04/30/2014 1:17 PM Procedures Additional Documentation Procedures Attending Note: Documentation assistance provided by Marisa Yanes (Scribe). Information recorded by the scribe has been reviewed and validated by me. I gumaro madrid with its contents. MD Anthony Calderón MD 04/30/14 4860 onversion Pina saction, Provider Unknown - 04/30/2014 10:31 AM PSTFormatting of this note might be differen t from the original. ED Notes by Anika Lee RN at 04/30/14 1031 Author: Anika Lee RN Service: (none) Author Type: Registered Nurse Filed: 04/30/14 103 Date of Service: 04/30/14 103 Status: Signed Medical Supervisor: Anika Lee RN (Registered Nurse) Laced pt [...] [place] | | | | | | [id number] | | | | | | | [...] | | | | | ONLY, -COMPUTER (838), | | | | | | design editor Tracie Ortiz | | | | | | (29) on 04/30/2014 | | | | | | 5:19:20 PM | | | | + + + + + + + + | Specimen | + + | | + + + + + | Narrative | Performed At | + + + | Historically converted procedure from [employer] Epic environment | EXTERNAL LAB | + + [...] EXTERNAL | | | | performed at [facility] | | LAB | | | | [address];[place] | | | | | | [address] | | | | + + + + + -+ | Non- | 4.28Comment: Testing | 4.20 - 5.70 | EXTERNAL | | | Red Blood | performed at [facility] | M/uL | LAB | | | Cells | [address];[place] | | | | | Counted | [address] | | | | + + + + + -+ | Hemoglobin | 14.8Comment: Testing | 13.2 - 17.0 | EXTERNAL | | | | performed at [facility] | g/dL | LAB | | | | [address];[place] | | | | | | [address] | | | | + + + + + -+ | Hematocrit, | 44.0Comment: Testing | 39.0 - 50.0 % | EXTERNAL | | | POC | performed at [facility] | | LAB | | | | [address];[place] | | | | | | [address] | | | | + + + + + -+ | MCV | 103.0 (H)Comment: | 80.0 - 100.0 fl | EXTERNAL | | | | Testing performed at | | LAB | | | | [facility] | | | | | [address];[place] [address] | | | | + + + + + -+ | MCH | 34.6 (H)Comment: Testing | 27.0 - 34.0 pg | EXTERNAL | | | | performed at [facility] | | LAB | | | | [address];[place] | | | | | | [address] | | | | + + + + + -+ | MCHC | 33.6Comment: Testing | 32.0 - 35.5 | EXTERNAL | | | | performed at [facility] | g/dL | LAB | | | | [address];[place] | | | | | | [address] | | | | + + + + + -+ | RDW-CV | 48.6Comment: Testing | 37 - 53 fl | EXTERNAL | | | | performed at [facility] | | LAB | | | | [address];[place] | | | | | | [address] | | | | + + + + + -+ | Platelet | 175Comment: Testing | 150 - 400 K/uL | EXTERNAL | | | Count | performed at [facility] | | LAB | | | Plasma | [address];[place] | | | | | | [address] | | | | + + + + + -+ | MPV | 8.5Comment: Testing | fl | EXTERNAL | | | | performed at [facility] | | LAB | | | | [address];[place] | | | | | | [address] | | | | + + + + + -+ | Differentia | AUTOMATEDComment: | | EXTERNAL | | | l Type | Testing performed at | | LAB | | | | [facility] | | [address];[place] [address] | | | | + + + + + -+ | % Segmented | 68.4Comment: Testing | % | EXTERNAL | | | | performed at [facility] | | LAB | | | Neutrophils | [address];[place] | | | | | | [address] | | | | + + + + + -+ | % | 23.0Comment: Testing | % | EXTERNAL | | | Lymphocytes | performed at [facility] | | LAB | | | | [address];[place] | | | | | | [address] | | | | + + + + + -+ | % Monocytes | 7.5Comment: Testing | % | EXTERNAL | | | | performed at [facility] | | LAB | | | | [address];[place] | | | | | | [address] | | | | + + + + + -+ | % | 0.4Comment: Testing | % | EXTERNAL | | | Eosinophils | performed at [facility] | | LAB | | | | [address];[place] | | | | | | [address] | | | | + + + + + -+ | % Basophils | 0.7Comment: Testing | % | EXTERNAL | | | | performed at [facility] | | LAB | | | | [address];[place] | | | | | | [address] | | | | + + + + + -+ | Absolute | 4.1Comment: Testing | 1.9 - 7.4 K/uL | EXTERNAL | | | Segmented | performed at [facility] | | LAB | | | Neutrophils | [address];[place] | | | | | | [address] | | | | + + + + + -+ | Absolute | 1.4Comment: Testing | 1.0 - 3.9 K/uL | EXTERNAL | | | Lymphocytes | performed at [facility] | | LAB | | | | [address];[place] | | | | | | [address] | | | | + + + + + -+ | Absolute | 0.4Comment: Testing | 0 - 0.8 K/uL | EXTERNAL | | | Monocytes | performed at [facility] | | LAB | | | | [address];[place] | | | | | | [address] | | | | + + + + + -+ | Absolute | 0.0Comment: Testing | 0 - 0.5 K/uL | EXTERNAL | | | Eosinophils | performed at [facility] | | LAB | | | | [address];[place] | | | | | | [address] | | | | + + + + + -+ | Absolute | 0.0Comment: Testing | 0 - 0.1 K/uL | EXTERNAL | | | Basophils | performed at [facility] | | LAB | | | | [address];[place] | | | | | | [address] | | | | + + + + + -+ | Na | 143Comment: Testing | 135 - 143 | EXTERNAL | | | | performed at [facility] | mmol/L | LAB | | | | [address];[place] | | | | | | [address] | | | | + + + + + -+ | K | 3.9Comment: Testing | 3.5 - 4.9 | EXTERNAL | | | | performed at [facility] | mmol/L | LAB | | | | [address];[place] | | | | | | [address] | | | | + + + + + -+ | Cl | 112 (H)Comment: Testing | 99 - 109 mmol/L | EXTERNAL | | | | performed at [facility] | | LAB | | | | [address];[place] | | | | | | [address] | | | | + + + + + -+ | CO2 | 26Comment: Testing | 23 - 32 mmol/L | EXTERNAL | | | | performed at [facility] | | LAB | | | | [address];[place] | | | | | | [address] | | | | + + + + + -+ | Anion Gap | 9Comment: Testing | 5 - 20 mmol/L | EXTERNAL | | | | performed at [facility] | | LAB | | | | [address];[place] | | | | | | [address] | | | | + + + + + -+ | Glucose, | 114 (H)Comment: Testing | 65 - 99 mg/dL | EXTERNAL | | | Fasting | performed at [facility] | | LAB | | | | [address];[place] | | | | | | [address] | | | | + + + + + -+ | BUN | 15Comment: Testing | 8 - 25 mg/dL | EXTERNAL | | | | performed at [facility] | | LAB | | | | [address];[place] | | | | | | [address] | | | | + + + + + -+ | Creatinine | 1.09Comment: Testing | 0.70 - 1.30 | EXTERNAL | | | | performed at [facility] | mg/dL | LAB | | | | [address];[place] | | | | | | [address] | | | | + + + + + -+ | BUN/Creatin | 14Comment: Testing | | EXTERNAL | | | ine Ratio | performed at [facility] | | LAB | | | | [address];[place] | | | | | | [address] | | | | + + + + + -+ | Calcium | 8.5Comment: Testing | 8.5 - 10.2 | EXTERNAL | | | | performed at [facility] | mg/dL | LAB | | | | [address];[place] | | | | | | [address] | | | | + + + + + -+ | Protein, | 6.7Comment: Testing | 6.3 - 8.2 g/dL | EXTERNAL | | | Total | performed at [facility] | | LAB | | | | [address];[place] | | | | | | [address] | | | | + + + + + -+ | Albumin | 3.7Comment: Testing | 3.3 - 4.8 g/dL | EXTERNAL | | | | performed at [facility] | | LAB | | | | [address];[place] | | | | | | [address] | | | | + + + + + -+ | Globulin | 3.1Comment: Testing | 1.3 - 4.9 g/dL | EXTERNAL | | | | performed at [facility] | | LAB | | | | [address];[place] | | | | | | [address] | | | | + + + + + -+ | A/G Ratio | 1.2Comment: Testing | 1.0 - 2.4 | EXTERNAL | | | | performed at [facility] | | LAB | | | | [address];[place] | | | | | | [address] | | | | + + + + + -+ | Bilirubin | 1.4Comment: Testing | 0.1 - 1.5 mg/dL | EXTERNAL | | | Total | performed at [facility] | | LAB | | | | [address];[place] | | | | | | [address] | | | | + + + + + -+ | ALP, | 93Comment: Testing | 35 - 115 U/L | EXTERNAL | | | External | performed at [facility] | | LAB | | | | [address];[place] | | | | | | [address] | | | | + + + + + -+ | AST | 19Comment: Testing | 10 - 45 U/L | EXTERNAL | | | | performed at [facility] | | LAB | | | | [address];[place] | | | | | | [address] | | | | + + + + + -+ | ALT | 25Comment: Testing | 10 - 65 U/L | EXTERNAL | | | | performed at [facility] | | LAB | | | | [address];[place] | | | | | | [address] | | | | + + + [...] | | | | | | at [facility] | | | | | | [address];[place] [address] | | | | + + + + + -+ | CK, Total | 53 (L)Comment: Testing | 55 - 400 U/L | EXTERNAL | | | | performed at [facility] | | LAB | | | | [address];[place] | | | | | | [address] | | | | + + + [...] | | | | | performed at [facility] | | | | | | [address];[place] | | | | | | [address] | | | | + + + + + -+ | aPTT, | 21 (L)Comment: Testing | 23 - 32 seconds | EXTERNAL | | | Patient | performed at [facility] | | LAB | | | | [address];[place] | | | | | | [address] | | | | + + + + + -+ | CK-MB | 1.1Comment: Testing | 0.5 - 3.6 ng/mL | EXTERNAL | | | | performed at [facility];[address] | | LAB | | | | [address];[place] | | | | | | [address] | | | | + + + [...] | | | | | | ACUTE AR Testing | | | | | | performed at [facility];[address] | | | | | | [address];[place], [place] | | | | | | [address] | | | | + + + [...]
--- OUTSIDE RECORDS SUMMARY | ~2020-01-23 | XMS | Encounter Summary ---
Demographics + + + | Address | [address] | | | [place] [address] | + + + | Home Phone | | + + + | Preferred Language | Unknown | + + + | Marital Status | | + + + | Spiritism Affiliation | 1013 | + + + | Race | Unknown | + + + | Ethnic Group | Unknown | + + + Author + + + | Author | [facility] | | | and [place] | + + + | Organization | [facility] | | [...] | | | | | [place] [address] | | + + + + + | Melissa Daley | ECON | [address] | | | | | [place] [address] | | + + + + + Care Team Providers + +------+ + | Care Hospice Clinical Manager Name | Role | Phone | [...] + + | 04/01/ | Office | [facility] | Mike, | BOOP (bronchiolitis | | 2012 | Visit | PULMONARY [address] | Carmelita Penny MD | obliterans with | | | | [place], | | organizing | | | | [place] [address] | | pneumonia) (HCC) | | | | [phone] | | (Primary Dx); | | | | | | Nocturnal hypoxemia; | | | | | | Diabetes mellitus, | | | | | | 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 Call to have a box delivered by the [employer]. Wear the finger probe through the night. Do the test on room air. Call the [employer] to contreras ve the box picked up the following day. Try a [employer] Sinus Rinse for your nose once a day. documented in this encounter Progress Notes Carmelita Mckeon MD - 04/01/2013 11:18 AM PDTFormatting of this note might be differe nt from the original. Pulmonary Follow Up MD Janis Love [facility] [address] [facility] [place], [address] HPI Ron Daley is a 78 y.o. 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 He had a fasting blood sugar on Thursday, and it was 103. He stopped the metformin on Thursday. He has been checking his blood sugars before supper and they have been 100-120. [facility], off the prednisone, he did have [...] made to ensure accuracy; however, inadvertent computerized fish farm manager errors may be pre sent. documented in [...] | 08/02/ | Office | Urology | LeoniaKiko noguera, | | | 2020 | Visit | | MD Jorge A HENRIQUEZ | | | | | | [place] | | | | | | [address] | | | | | | | [...]
--- OUTSIDE RECORDS SUMMARY | ~2020-01-23 | XMS | Encounter Summary ---
Demographics + + + | Address | [address] | | | [place] [address] | + + + | Home Phone | | + + + | Preferred Language | Unknown | + + + | Marital Status | | + + + | Hindu Affiliation | 1013 | + + + | Race | Unknown | + + + | Ethnic Group | Unknown | + + + Author + + + | Author | [facility] | | | and [place] | + + + | Organization | [facility] | | | and [...] | | | | | [place] [address] | | + + + + + | Melissa Sheldon | ECON | [address] | | | | | [place] [address] | | + + + + + Care Team Providers + +------+ + | Care Engineer/Conductor Name | Role | Phone | + +------+ + | Jona Deal MD | PCP | | + +------+ + Encounter Details +--------+ + + + + | Date | Type | Department | Care Team | Description | +--------+ + + + + | 08/16/ | Hospital | [facility] | Offenstein, | BOOP (bronchiolitis | | 2012 - | Encounter | MED CTR XRAY [address] | Carmelita Penny MD | obliterans with | | | | [place] | | organizing | | 08/18/ | | [place] [address] | | pneumonia) (HCC) | | 2012 | | [phone] | | | +--------+ + + + [...] | | | | | [place] | | | | | | [address] | | | | | | | [...] Performed At | + + + | [facility] | [place] | | Department [address] [facility] | [facility] | | [ rep [address]] [ rep [facility] | | [facility]] Signed | - IMAGING | | | | | Patient Name: RON SHELDON V Physician: | | | DOROTEO. : 1935 Age: 77 Sex: M Unit #: [id number] | | | Exam Date: 08/16/12 Location: [facility] | | | Report #: [id number] Page: | | | %(RAD)RES..mtdd.print.filter("pg") of %(RAD) | | | RES..mtdd.print.filter("tpg") | | | | | | Accession Number: [id number] | | | CHEST X-RAY CLINICAL HISTORY: [...] Transcribed Date/Time: | | | 08/16/2012 11:23 Malter Operator: TylerANNY | | | <<Signature on File>> | | | Mart | | | MD [place]08/16/12 1439 <Electronically signed by Mart Boyle MD> | | | Mart Boyle MD 08/16/12 1114 Malter Operator: Cayetano | | | Tamrvievdnhky10/25/13 1123 Carmelita Mckeon MD | | | | | + + + + + + + + | Performing | Address | City/State/Zipcode | Phone Number | | Organization | | | | + + + + + | [facility] [address] | [address] | [place] | [phone] | | 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
--- OUTSIDE RECORDS SUMMARY | ~2020-01-23 | XMS | Encounter Summary ---
Demographics + + + | Address | [address] | | | [place] [address] | + + + | Home Phone | | + + + | Preferred Language | Unknown | + + + | Marital Status | | + + + | Protestant Affiliation | 1013 | + + + | Race | Unknown | + + + | Ethnic Group | Unknown | + + + Author + + + | Author | [facility] | | | and [place] | + + + | Organization | [facility] | | [...] | | | | | [place] [address] | | + + + + + | Melissa Daley | ECON | [address] | | | | | [place] [address] | | + + + + + Care Team Providers + +------+ + | Care Professor/Nurse Anesthetist Name | Role | Phone | + +------+ + | Jona Deal MD | PCP | | + +------+ + Reason for Visit +--------+--------+ + | Reason | Onset | Comments | | | Date | | +--------+--------+ + | Other | 01/10/ | | | | 2012 | | +--------+--------+ + Encounter Details +--------+ + + + + | Date | Type | Department | Care Team | Description | +--------+ + + + + | 07/01/ | Telephone | [facility] | Marci Mcneal, | Other | | 2012 | | PULMONARY [address] | RN | | | | | [place], | | | | | | [place] [address] | | | | | | [phone] | | | +--------+ + + + [...] | 01/21/ | Office | Urology | iKko Garrido, | | | 2020 | Visit | | MD Jorge A HENRIQUEZ | | | | | | [place] | | | | | | [id number] | | | | | | | | +--------+---------+ + + + documented as of this encounter Visit Diagnoses Not on filedocumented in this encounter"
--- OUTSIDE RECORDS SUMMARY | ~2020-01-23 | XMS | Encounter Summary ---
Demographics + + + | Address | [address] | | | [place] [address] | + + + | Home Phone [...] + + + | Author | [facility] | | | and [place] | + + + | Organization | [facility] | | | [...] | | | | | [place] [address] | | + + + + + | Melissa Daley | ECON | [address] | | | | | [place] [address] | | + + + + + Care Team Providers + +------+ + | Care Doctor Podiatric Medicine Name | Role | Phone | + [...] | | | | Diagnoses | | | | | | | ureteral | | | | | | | stone left | | | | | | | ureteral | | | | | | | calculus | | | | | | | LEFT | | | | | | | URETERAL | | | | | | | CALCULUS | | | | | | | Procedures | | | | | | | CYSTOSCOPY | | | | | | | LEFT | | | | | | | URETEROSCOPY | | | | | | | W/ LASER | | | | | | | AND STENT | | | | | | | PLACEMENT | | | | | | | CYSTOSCOPY | | | | | | | PLACEMENT | | | | | | | URETERAL | | | | | | | STENT | | | +--------+--------+ + + + + Encounter Details +--------+---------+ + + + | Date | Type | Department | Care Team | Description | +--------+---------+ + + + | 12/14/ | Surgery | [facility] | Kiko Garrido, | CYSTOSCOPY PLACEMENT | | 2019 | | [facility] | MD [address] | URETERAL STENT | | | | [address] | [place], [place] | | | | | [place], [place] | [address] | | | | | [address] | | | | | | [phone] | | | +--------+---------+ + + + [...] + + + | Blood Pressure | 186/88 | 12/15/2019 8:10 PM | | | | | PDT | | + + + + + | Pulse | 69 | 12/15/2019 8:10 PM | | | | | PDT | | + + + + + | Temperature | 36.6 C (97.9 F) | 12/15/2019 8:10 PM | | | | | PDT | | + + + + + | Respiratory Rate | 18 | 12/15/2019 8:10 PM | | | | | PDT | | + + + + + | Oxygen Saturation | 95% | 12/15/2019 8:10 PM | | | [...] Discharge Instructions Instructions Kiko Garrido MD - 12/16/2019DISCHARGE INSTRUCTIONS URINARY TRACT SURGERY including: URETERAL STENT PLACEMENT Activity: Light for 1-2 days. Walk frequently as tolerated. Gradually return to normal activitie s as tolerated. Best to avoid intercourse for 3-4 days. Preferable to avoid heavy lifting or [...] common after this type of surgery. Use Tylenol as needed for pain. Additional Instructions: You may shower at any time. If you have a stent, sometimes the stent may be bothersome, and may cause discomfort in your back when voiding. Follow up: Call Dr Garrido's office ([phone]) to set up your follow-up appointment or [...] ureteral stent in on your left side. What is a Stent? A stent is [...] cannot remain indwelling longer than 6 months. documented in this encounter Medications at Time [...] 1 capsule by | | 0 | 11/23/19 | | | (FLOMAX) 0.4 mg CAPS | mouth at bedtime | | | 20 | | + + + +---------+ + + | timolol maleate | | | 0 | 04/02/20 | | | (TIMOPTIC) 0.5% | | | | 19 | | | ophthalmic solution | | | | | | + + + +---------+ + + | valsartan (DIOVAN) | | | 0 | 07/15/19 | | | 160 mg tablet | | | | 20 | | + + + +---------+ + + documented as of this encounter Progress Notes Kiko Garrido MD - 12/16/2019 9:32 AM PDTFormatting of this note might be different fro m the original. Urology follow up S: Denies pain or nausea. Still "barragan a little" with voiding. No hematuria. No renal c olic. No chest pain or SOB. Tolerating diet well. "I feel pretty good." O: BP 170/90 | Pulse 72 | Temp 36.5 C (97.7 F) (Oral) | Resp 20 | Ht 1.778 m (5' 1 0") | Wt 108.6 kg (239 lb 6.7 oz) | SpO2 94% | BMI 34.35 kg/m General: Awake, alert, in no acute distress. Speech is fluent. Appears to be stated age. Lungs: Normal respiratory effort, no wheezing, no stridor, no tachypnea. Back: No CVA tenderness. Abdomen: Soft, nontender, nondistended, no hepatosplenomegaly. No masses. No guarding; be nign. Bladder nondistended. No flank tenderness. Extremities: Trace ankle edema. Warm, perfused. Neuro: Awake, alert, oriented x3. Answers questions appropriately. Psychiatric: Mood and affect are normal. Normal judgment. Skin: Warm and dry, no erythematous rash. Genitalia: Normal in appearance. Uncircumcised. No penile discharge. DIAGNOSTIC DATA: Lab Results Component Value Date CREA 1.12/16/2019 BUN 20 12/16/2019 NA 142 12/16/2019 K 3.8 12/16/2019 CL 108 (H) 12/16/2019 CO2 24 12/16/2019 Lab Results Component Value Date WBC 7.0 12/16/2019 HGB 14.2 12/16/2019 HCT 42.9 12/16/2019 MCV 99.3 12/16/2019 LABPLAT 175 04/30/2014 PLT 174 12/16/2019 Impression: POD # 1 - doing well. Pain free, and GFR improving. 11 mm obstructing left ureteral calculus Left hydronephrosis. Decompressed with stent. Left renal colic. Resolved. MADINA. Creatinine improving. Plan: Discharge home. Lithotripsy of stone in the near future. Follow up in my office next week. Discharge instructions given. RTC precautions discussed. Dietary restrictions discussed. documented in this en counter H&P Notes Kiko Garrido MD - 12/15/2019 5:53 PM PDTFormatting of this note might be different fro m the original. Urology ADMISSION HISTORY AND PHYSICAL Pt. Name/Age/: Ron Daley 84 y.o. 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, non insulin dependent Abnormal humeral head xray Sleep related hypoventilation/hypoxemia in conditions classifiable elsewhere Sleepiness Peripheral vascular disease Hyperplasia of prostate with lower urinary tract symptoms (LUTS) Gastro-esophageal reflux disease with esophagitis Gout Bilateral nephrolithiasis Intermittent claudication Hyperlipoproteinemia HTN (hypertension) History of colon polyps Ureteral calculus, left 1st degree AV block History of Present Illness: Information is gathered from patient and relative(s) (daughter , Katie Yusuf) Ron reports that he has had multiple kidney stones in the past. He states that Dr. See duvall has performed stone extraction procedures for him previously. He began having left flank pain on 12/11/2019. His pain has been colicky and intensified to day, prompting a visit to the emergency department at [facility]. While at [facility], CT imaging was performed which demonstrated an 11 mm proximal lef t ureteral calculus. There is no urology coverage during this weekday, and so transfer was requested. He denies having any fever or chills. He has had nausea. Oral intake has been diminished. Urine output has decreased. He denies any dysuria or hematuria. He denies any fever or chills. He is not had any cough or chest pain or shortness of breath or hemoptysis. He denies any angina. He states that a series of tests have been done by Dr. Verdugo to try to determine the cause of his stones, but he was not very faithful in adhering to the treatment plan. Pain is sharp, and has become constant, and intolerable. Past Medical History: Past Medical History: Diagnosis Date Acute respiratory failure with hypoxia (HCC) Bilateral nephrolithiasis BOOP (bronchiolitis obliterans with organizing pneumonia) ([facility]) Carpal tunnel syndrome Cataract Colon polyps Cough Diabetes mellitus type II, non insulin dependent 04/01/2013 Diverticulosis Dyslipidemia Gastro-esophageal reflux disease with esophagitis GERD (gastroesophageal reflux disease) 05/31/2012 Gout HTN (hypertension) Hyperlipidemia Hyperlipoproteinemia Hyperlipoproteinemia Type-Ii-a Intermittent claudication (HCC) Nephrolithiasis recurrent, calcium oxalate crystals Osteoarthritis Sinus infection Walking pneumonia Past Surgical History: Past Surgical History: Procedure Laterality Date ANKLE FUSION Right right, x2 APPENDECTOMY age 8 BACK SURGERY x3 including 2 laminectomies and one fusion CARPAL TUNNEL RELEASE Right 2015 CHOLECYSTECTOMY 1985 COLONOSCOPY Kidney Stones Removed KNEE JOINT REPLACEMENT Left 1991 SHOULDER SURGERY x2 TONSILLECTOMY TOTAL KNEE ARTHROPLASTY Right 1995 Home Medications: Medications Prior to Admission Medication Sig Dispense Refill allopurinol (ZYLOPRIM) 100 [...] Take 40 mg by mouth Daily. 0 Current Medications: Current Facility-Administered Medications Medication Dose Route Frequency Provider Last Rate Last Dose cefTRIAXone (ROCEPHIN) 2 g in sodium chloride 0.9% 50 mL IVPB 2 g Intravenous Prior to Incision Kiko Garrido MD [MAR Hold] ondansetron (ZOFRAN) injection 4 mg 4 mg Intravenous Q6H PRN Kiko Garrido MD 4 mg at 12/15/19 1711 Allergies: Allergies Allergen Reactions Demerol [Meperidine] Iodine IV Iodine Morphine Family History: Family History Problem Relation Age of Onset Heart attack Father Kidney disease Sister Other (see comment) Sister hemodialysis Hypertension Sister Diabetes Sister Social History: Social History Socioeconomic History Marital status: Spouse name: Not on file Number of children: Not on file Years of education: Not on file Highest education level: Not on file Occupational History Not on file Social Needs Financial resource strain: Not on file Food insecurity Worry: Not on file Inability: Not on file Transportation needs Medical: Not on file Non-medical: Not on file Tobacco Use Smoking status: Never Smoker Smokeless tobacco: Never Used Substance and Sexual Activity Alcohol use: No Drug use: No Sexual activity: Not on file Lifestyle Physical activity Days per week: Not on file Minutes per session: Not on file Stress: Not on file Relationships Social connections Talks on phone: Not on file Gets together: Not on file Attends baptism service: Not on file Active member of club or organization: Not on file Attends meetings of clubs or organizations: Not on file Relationship status: Not on file Intimate partner violence Fear of current or ex partner: Not on file Emotionally abused: Not on file Physically abused: Not on file Forced sexual activity: Not on file Other Topics Concern Not on file Social History Narrative Not on file Exam: Most Recent Vital Signs: Temp: 36.9 C (98.5 F) BP: 172/84 Pulse: 71 Resp: 18 SpO2: 95 % on Min/Max Temp past 24 hours:Temp Av.9 C (98.5 F) Min: 36.9 C (98.5 F) Max: 3 6.9 C (98.5 F) Weight most recent: Weight: 108.7 kg (239 lb 10.2 oz) BMI: Body mass index is 35.39 kg/m. Physical Examination: General: Well nourished, well developed, alert, appears mildly uncomfortable. HEENT: Head normocephalic, oropharynx is clear without erythema or exudates Neck: Supple, no rigidity. Cardiovascular: Regular rate and rhythm without any murmurs, rubs or gallops. Respiratory: Clear to auscultation bilaterally. Breathing unlabored. Abdomen: Soft, nondistended, no hepatosplenomegaly. Bladder nondistended. Moderate left flank tenderness. No peritoneal signs. Back: Mild left costovertebral angle tenderness. Extremities: Warm and dry, trace ankle edema bilaterally. Surgical scars which are well-h ealed overlying each knee. Neurological: Awake, alert, oriented. Answers questions appropriately, but is reported to have dementia. Psychiatric: Mood normal, affect appropriate. Diagnostic Studies: Lab Results Component Value Date WBC 9.1 12/15/2019 HGB 14.4 12/15/2019 HCT 42.9 12/15/2019 MCV 99.5 12/15/2019 LABPLAT 175 04/30/2014 PLT 169 12/15/2019 Creatinine at [facility] today is reported to be 1.5. Lab Results Component Value Date CREA 1.06 05/24/2012 BUN 15 04/30/2014 NA 143 04/30/2014 K 3.9 04/30/2014 CL 112 (H) 04/30/2014 CO2 26 04/30/2014 Lab Results Component Value Date ALT 25 04/30/2014 AST 19 04/30/2014 ALKPHOS 63 05/23/2012 BILITOT 1.4 04/30/2014 Lab Results Component Value Date COLORUA YELLOW 05/17/2012 CLARITYUA CLEAR 05/17/2012 PHUR 6.5 05/17/2012 SPECIFICGRAV 1.015 05/17/2012 PROTUA NEGATIVE 05/17/2012 BLOODU TRACE-INTACT 05/17/2012 GLUCOSEU NEGATIVE 05/17/2012 KETONES NEGATIVE 05/17/2012 BILIRUBINUA NEGATIVE 05/17/2012 NITRITEUA NEGATIVE 05/17/2012 LEUKOESTUA NEGATIVE 05/17/2012 UROBILIUA NORMAL 05/17/2012 WBCUA 0-2 05/17/2012 RBCUA 2-4 05/17/2012 SQUAMEPIUA NONE 05/17/2012 BACTERIAUA NONE 05/17/2012 X-rays: I personally reviewed the images of the most recent related X-rays and noted: Ct Abdomen Pelvis Wo Contrast Result Date: 12/15/2019 External films for comparison only No results will be in the chart. Images personally reviewed today. He has a large stone approximately 11 x 6 mm in the left ureter at the junction of the upper third and middle third of the ureter. Significant hydr onephrosis proximal to the stone. At least 2 additional nephroliths in the contralateral ri ght kidney. Impression: 1. Obstructing 11 x 6 mm left proximal ureteral calculus. 2. Left hydronephrosis. 3. Acute kidney injury. 4. Left ureteral obstruction. 5. Left renal colic. 6. Hypertension. 7. Dementia. 8. Diabetes mellitus. 9. Recurrent nephrolithiasis, reportedly calcium oxalate. Recommendations: I discussed with Ron and his daughter Katie bills findings on CT imaging. We discussed his creatinine of 1.5. I advised Ron that he should undergo decompression of his obstructed upper tract, followe d in the future by definitive stone procedure. He concurs, and wishes to proceed. The risks, benefits, and alternatives of cystoscopy, and left ureteral stent placement are discussed with Ron in detail. Risks are to include, but are not limited to bleeding, pain, infection, failure of the proc edure, inability to place the stent, ureteral injury, ureteral perforation, potential need f or additional procedures, possible need for percutaneous nephrostomy if I cannot place a evette nt, inherent irritability and discomfort associated with a ureteral stent, inherent risks of any surgical procedure and anesthesia including DVT, PE, TX, CVA, and even . Ron indicates his understanding, and indicates a desire to proceed as outlined. No guara ntees are given or implied. His surgical procedure will be performed later today as soon as OR time becomes available. He is aware that I will not be removing his stone today, that I am leaving a stent in place now to facilitate stone removal in the future. Electronically signed by: Kiko Garrido MD 12/15/2019 [facility] documented in this en counter Miscellaneous Notes Plan of Care - Carmelita Mesa, COMMERCIAL ROOFING ESTIMATOR - 12/16/2019 5:33 PM PDT Problem: Discharge Planning Goal: Patient's discharge needs will be identified in a timely manner Outcome: Met Goal: Patient will be discharged in a safe manner Outcome: Met This classification case manager met with Ron to discuss his discharge plan. Ron states that he lives with his spouse Melissa in [place] at the [facility]. He states that he can d o his own ADLs. He doesn't use any A/D. The jail home helps with cleaning, providing m eals. He takes his own meds. He feels he is still independent and Melissa helps with medication management. His daughter is Katie Yusuf. She will be providing transportation [facility]. This CM met with Katie prior to Ron being discharged. We dicussed his OBS status. Provide d a brochure and a ALFRED form. Ron signed it and this CM provided him with a copy. Katie feels he is safe to return home today. PCP is Nilo, he uses [facility] in [place]. PLAN: Home with spouse, daughter Katie to transport. lan Jeanna Kay RN - 12/16/2019 2:13 PM PDTPt adequate for discharge. PIV removed. Educated pt and pt daughter on discharge instruct ions with emphasis on calling for outpatient appointment and s/s to seek medical attention. Transferred to daughter's car via wheelchair. Daughter to drive pt back to living facility i n [place]. All questions answered. lan Destiny Dugan Chaplain - 12/16/2019 10:12 AM NIKKI Mccollum Ron Daley is a 84 y.o. male who is admitted for ureteral stone left ureteral calculus LEFT URETERAL CALCULUS. Reel Operator visit was part of routine rounding. Spiritual Evaluation: The patient was sitting up in his bed on the surgical unit and welcomed a spiritual care vi sit. He was immediately pleasant and engaging. The patient has a long, deep, and positive e xperience in his marriage, work and voodoo. He lives at an assisted living facility with hi s , whose health is challenged, but he sees her resilience. He has been over 75 years and worked over 65 years. 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 His daughter works here and came to his bedside during our vis it. He is accepting of the need for surgery and has experienced this issue several times, s ome times needing hospitalization, other times not. Spiritual Interventions: The construction assistant attended, offered care, explored patient's life story and important relationsh ips and offered prayer. Spiritual Outcomes: The patient is looking forward to returning to the nursing facility where he can be with hi s . He accepts the need to return for surgery at a later date. Spiritual Goals/Follow-up: Follow up with emotional support to patient's daughter as needed. The patient expects to d ischarge this afternoon. 10 :22 AM PDTPlan of Chun - Letitia Randall RN - 12/16/2019 4:29 AM PDTPatient received from PACU in destiney condition. BP was elevated and he received routine BP medications. BP dec reased but remains elevated. Patient urinating clear yellow urine. Good output. Patient c omplained of some urinary pain but declined pain medication. Patient up to the bathroom and used urinal. Calm and cooperative with care. Slept through out most of the night. Electr onically signed by Letitia Randall RN at 12/16/2019 4:34 AM PDTOp Note - Kiko Garrido M D - 12/15/2019 7:02 PM PDTOperative Note Pt. Name/Age/: Ron Daley 84 y.o. 1935 Med. Record Number: [id number] Date of Operation/Procedure: 12/15/2019 Preoperative Diagnosis: 11 mm mid left ureteral calculus Left hydronephrosis Left renal colic Acute Kidney Injury Postoperative Diagnosis: 11 mm mid left ureteral calculus Left hydronephrosis Left renal colic Acute Kidney Injury Surgeon: Kiko Garrido MD 5Th Grade Teacher(s): None Anesthesia Provider(s): Anesthesiologist: Pietro Tang MD Anesthesia Type: General Procedure: 1. Cystoscopy 2. Left Ureteral stent placement Operative Indications: Ron Daley is a 84 y.o. male who presents with findings suggesting hydronephrosis and ureteral obstruction due to an 11 mm obstructing ureteral calc ulus. Ron was counseled and consented to proceed. The risks, benefits, complications, treatment options, and expected outcomes were discussed with Ron. Ron gave informed consent to proceed to the operating room for endoscopic estela luation and treatment. Discussed risks, including infection, bleeding, failure to access ur eter, possible severe ureteral injury, need for prolonged stent, stent irritation, hematuria , failure to diagnose, inability to treat encountered pathology, inability to place a stent, inherent risks of surgery, anesthetic complications. Ron understands and consents to pr oceed. Operative Findings: Cystoscopy noted no bladder tumors or lesions. Bladder was trabeculat ed. Patent prostatic urethra with TUR defect. Significant undermining of the bladder neck from prior TURP. Large stone in mid left ureter. Radiographic Findings: Large stone in mid left ureter. Appropriate stent positioning. Operation: Under the benefit of general anesthesia, the patient was prepped and draped in the usual sterile fashion in a low lithotomy position. Arms and legs were carefully padded and positioned to prevent any injury. An appropriate time out was held prior to the procedu re. Preoperative antibiotics and DVT prophylaxis (IVAN stockings or SCD's) was applied as pe r protocol. Preoperative images were displayed on the imaging monitor. A rigid cystoscope was then placed through the urethra into the bladder and the bladder was systematically surveyed and investigated, and the above findings were readily noted. A Bard Solo Plus guidewire was placed under fluoroscopic guidance up into the renal pelvis. A 7-Uzbek X 26 cm double-J stent was placed over the guidewire with a proximal curl confir med by fluoroscopy while the distal curl was confirmed by cystoscopy. The bladder was then drained through the cystoscope, and the scope was removed. Fluoroscopy once again confirmed appropriate stent positioning. No suture tether was left attached to the patient's stent. The patient was then awakened from anesthesia and sent to recovery in stable condition. Estimated Blood Loss: None Transfused: No Drains: None Specimen (s): None Complications: None Patient Condition: Stable Disposition: Admit to bobo for observation. Recheck renal function tomorrow. The patient will return to my office in approximately 7-10 days for KUB, and to arrange for staged uret eroscopy with laser lithotripsy. Electronically Signed by: Kiko Garrido MD, 12/15/2019 7:02 PM PDT [facility] documented in this en counter [...] [place] | | | | | | [id number] [...] + +--------+ + + + | FL DANNY STATS NO | Routin | 12/15/2019 | | [...] | + +--------+ + + + | IMAGING REPORT - | | 12/15/2019 | | Results for this | | EXTERNAL SCAN | | 12:00 AM | | procedure are in the | | | | PDT | | results section. | + +--------+ + + + documented in this encounter Results Uric Acid (12/16/2019 5:22 AM PDT) + [...] + | [facility] | [address] | [place] | [phone] | | [facility] | | [address] | | | - LABORATORY | | | | + + + + + CBC no Differential (12/16/2019 5:22 AM PDT) + + + + + + | Component | Value | Ref Range | Performed | Pathologist | | | | | At | Signature | + + + + + + | White Blood | 7.0 | 4.0 - 11.0 K/uL | [facility] | | | Cells | | | [facility] | | | | | | MEDICAL | | | | | | CENTER - | | | | | | LABORATORY | | + + + + + + | Red Blood | 4.32 | 4.30 - 5.70 | [...] | | | | WBCs | [facility] | | | | | | MEDICAL | | | | | | CENTER - | | | | | | LABORATORY | | + + + + + + | Absolute | 0.00 | 0.00 - 0.01 | [facility] | | | nRBC | | K/uL | [facility] | | | | [...] [address] | [place] | [phone] | | [facility] | | [address] | | | - LABORATORY | | | | + + + + + Basic Metabolic Panel (12/16/2019 5:22 AM PDT) + + + + + [...] 20 | 9 - 23 mg/dL | [facility] | | | | | | [facility] | | | | | | [facility]ICAL | | | | | | CENTER - | | | | | | LABORATORY | | + + + + + + | Creatinine | 1.19 | 0.70 - 1.30 | [facility] | | | | | mg/dL | [facility] | | | | | | MEDICAL | | | | | | CENTER - | | | | | | LABORATORY | | + + + + + + | eGFR, | 58 (L)Comment: | >=60 | [facility] | | | non- | GLOMERULAR FILTRATION | mL/min/1.73m2 | [facility] | | | Indonesian | RATE,ESTIMATED | | MEDICAL | | | | mL/min/1.38j8Tnuz than | | CENTER - | | [...] | | | | mg/dL | [facility] | | | | | | MEDICAL | | | | | | CENTER - | | | | | | LABORATORY | | + + + + + + | BUN/Creatin | 16.8 | | [facility] | | | ine Ratio | | | [facility] | | [...] [address] | [address] | [phone] | | [facility] | | [address] | | | - LABORATORY | | | | + + + + + FL C-Arm Stats No Charge (12/15/2019 6:58 PM PDT) [...] | Procedure Note | + + | Landon Howell Results In - 12/15/2019 9:24 PM PDT [...] | | | + +---------+ + + CBC no Differential (12/15/2019 5:17 PM PDT) + + + + + + | Component | Value | Ref Range | Performed | Pathologist | | | | | At | Signature | + + + + + + | White Blood | 9.1 | 4.0 - 11.0 K/uL | [facility] | | | Cells | | | [facility] | | | | | | MEDICAL | | | | | | CENTER - | | | | | | LABORATORY | | + + + + + + | Red Blood | 4.31 | 4.30 - 5.70 | [facility] | [...] | | | | g/dL | [facility] | | | | [...] + + + + | MCV | 99.5 | 83.0 - 101.0 fL | [facility] | | | | | | [facility] | | | | | | MEDICAL | | | | | | CENTER - | | | | | | LABORATORY | | + + + + + + | MCH | 33.4 | 28.0 - 35.0 pg | [facility] | | | | | | [facility] | | | | | | MEDICAL | | | | | | CENTER - | | | | | | LABORATORY | | + + + + + + | MCHC | 33.6 | 32.0 - 36.0 | [facility] | | | | | g/dL | [facility] | | | | | | MEDICAL | | | | | | CENTER - | | | | | | LABORATORY | | + + + + + + | RDW-CV | 13.5 | <15.0 % | [facility] | | | | | | MEDICAL | | | | | | CENTER - | | | | | | LABORATORY | | + + + + + + | RDW-SD | 49.9 (H) | 35.1 - 46.3 fL | [facility] | | | | | | MEDICAL | | | | | | CENTER - | | | | | | LABORATORY | | + + + + + + | Platelet | 169 | 140 - 440 K/uL | [facility] [...] + + | [facility] | [address] | [place] | [phone] | | [facility] | | [address] | | | - LABORATORY | | | | + + + + + Basic Metabolic Panel (12/15/2019 5:17 PM PDT) + + + + + + | Component | Value | Ref Range | Performed | Pathologist | | | | | At | Signature | + + + + + + | Na | 140 | 136 - 145 | [facility] | | | | | mmol/L | [facility] | | | | | | MEDICAL | | | | | | CENTER - | | | | | | LABORATORY | | + + + + + + | K | 3.6 | 3.4 - 5.1 | [facility] | | | | | mmol/L | [facility] | | | | | | MEDICAL | | | | | | CENTER - | | | | | | LABORATORY | | + + + + + + | Cl | 106 | 98 - 107 mmol/L | [facility] | [facility] | | | | | | MEDICAL | | | | | | CENTER - | | | | | | LABORATORY | | + + + + + + | CO2 | 25 | 20 - 31 mmol/L | [facility] | | | | | | MEDICAL | | | | | | CENTER - | | | | | | LABORATORY | | + + + + + + | Anion Gap | 9 | 3 - 16 mmol/L | [facility] | | | | | | MEDICAL | | | | | | CENTER - | | | | | | LABORATORY | | + + + + + + | Glucose | 174 (H) | 60 - 106 mg/dL | [facility] | | | | | | MEDICAL | | | | | | CENTER - | | | | | | LABORATORY | | + + + + + + | BUN | 20 | 9 - 23 mg/dL | [facility] | | [facility] | | | MEDICAL | | | | | | CENTER - | | | | | | LABORATORY | | + + + + + + | Creatinine | 1.39 (H) | 0.70 - 1.30 | [facility] | | | | | mg/dL | [facility] | | | | | | MEDICAL | | | | | | CENTER - | | | | | | LABORATORY | | + + + + + + | eGFR, | 48 (L)Comment: | >=60 | [facility] | | | non- | GLOMERULAR FILTRATION | mL/min/1.73m2 | [facility] | | | Indonesian | RATE,ESTIMATED | | MEDICAL | | | | mL/min/1.59g1Fiot than | | CENTER - | | [...] + + + + | BUN/Creatin | 14.4 | | [facility] | | | ine Ratio | | | [facility] | | [...] [address] | [place] | [phone] | | [facility] | | [address] | | | - LABORATORY | | | | + + + + + ECG 12 lead (12/15/2019 [...] | | | | LILLIAN PEARSON MD ([id number]) | | | | | | on [...] + + + + | SARS-CoV-2, | NegativeComment: | Negative | [facility] | | | NAAT | SARS-CoV-2, RNA | | [facility] | | | (COVID-19) | (COVID-19) EUA This | | MEDICAL [...] + + + + + | [facility]. | [address] | [place] | [phone] | | [facility] | | [address] | | | - LABORATORY | | | | + + + + + IMAGING REPORT - EXTERNAL SCAN (12/15/2019 12:00 AM PDT) + + + | Narrative | Performed At | + + + | Ordered by an | | | unspecified provider. | | + + + documented in this encounter Visit Diagnoses + + | Diagnosis | + + | Left ureteral calculus Calculus of ureter | + + documented in this encounter Administered Medications + +--------+---------+------+------+------+ | Medication Order | MAR | Action | Dose | Rate | Site | | | Action | Date | | | | + +--------+---------+------+------+------+ + +---+ | acetaminophen (TYLENOL) 160 | | | mg/5 mL liquid 650 mg 650 mg, | | | Oral, EVERY 4 HOURS PRN, Mild | | | Pain, Fever, fever equal or | | | greater than 38.3 C, Starting [facility] | | | 12/15/19 at 2003, If unable to | | | swallow tablets. Maximum dose of | | | acetaminophen is 4,000 mg from | | | all sources in 24 hours., | | + +---+ | | | + +---+ | acetaminophen (TYLENOL) | | | suppository 650 mg 650 mg, | | | Rectal, EVERY 4 HOURS PRN, Mild | | | Pain, Fever, fever equal or | | | greater than 38.3 C, Starting [facility] | | | 12/15/19 at 2003, If unable to | | | take oral. Maximum dose of | | | acetaminophen is 4,000 mg from | | | all sources in 24 hours., | | + +---+ | | | + +---+ + +-------+ + +---+---+ | acetaminophen (TYLENOL) tablet | Given | 12/15/19 | 1,000 mg | | | | 1,000 mg 1,000 mg, Oral, SEE | | 20 6:13 | | | | | ADMIN INSTRUCTIONS, Starting Laura | | PM PDT | | | | | 12/15/19 at 1810, For 1 dose, | | | | | | | Nursing to give 60 minutes before | | | | | | | time of surgery, Pre-op | | | | | | + +-------+ + +---+---+ + +---+ | | | + +---+ | acetaminophen (TYLENOL) tablet | | | 650 mg 650 mg, Oral, EVERY 4 | | | HOURS PRN, Mild Pain, Fever, | | | fever equal to or more than 38.3 | | | C, Starting [facility] 12/15/19 at 2003, | | | May use liquid for patients | | | unable to swallow tablets. | | | Maximum dose of acetaminophen is | | | 4,000 mg from all sources in 24 | | | hours., | | + +---+ | | | + +---+ + +-------+ +--------+---+---+ | allopurinol (ZYLOPRIM) tablet | Given | 12/16/19 | 100 mg | | | | 100 mg 100 mg, Oral, DAILY, | | 20 9:21 | | | | | First dose on Thu12/16/19 at 0900 | | AM PDT | | | | + +-------+ +--------+---+---+ +---+---+ | | | +---+---+ + +-------+ +--------+---+---+ | amLODIPine (NORVASC) tablet 2.5 | Given | 12/16/19 | 2.5 mg | | | | mg 2.5 mg, Oral, DAILY, First | | 20 9:20 | | | | | dose on Thu12/16/19 at 0900 | | AM PDT | | | | + +-------+ +--------+---+---+ +---+---+ | | | +---+---+ + +-------+ +-------+---+---+ | atenolol (TENORMIN) tablet 50 | Given | 12/16/19 | 50 mg | | | | mg 50 mg, Oral, 2 TIMES DAILY, | | 20 9:20 | | | | | First dose on [facility] 12/15/19 at 2100 | | AM PDT | | | | + +-------+ +-------+---+---+ +-------+ +-------+---+---+ | Given | 12/15/19 | 50 mg | | | | | 20 8:28 | | | | | | PM PDT | | | | +-------+ +-------+---+---+ +---+---+ | | | +---+---+ + +-------+ +-----+---+---+ | cefTRIAXone (ROCEPHIN) 2 g in | Bolus | 12/15/19 | 2 g | | | | sodium chloride 0.9% 50 mL IVPB | | 20 6:27 | | | | | 2 g, Intravenous, Administer over | | PM PDT | | | | | 30 Minutes, Prior to Incision, | | | | | | | Starting [facility] 12/15/19 at 1659, For | | | | | | | 1 dose, Activate system and mix | | | | | | | before use., Pre-op, Indications: | | | | | | | Surgical Prophylaxis | | | | | | + +-------+ +-----+---+---+ +---------+ +-----+-------+---+ | New Bag | 12/15/19 | 2 g | 100 | | | | 20 6:15 | | mL/hr | | | | PM PDT | | | | +---------+ +-----+-------+---+ +---+---+ | | | +---+---+ + +-------+ +--------+---+---+ | docusate sodium (COLACE) | Given | 12/16/19 | 100 mg | | | | capsule 100 mg 100 mg, Oral, 2 | | 20 9:22 | | | | | TIMES DAILY, First dose on Laura | | AM PDT | | | | | 12/15/19 at 2100, Hold for loose | | | | | | | stools, | | | | | | + +-------+ +--------+---+---+ +-------+ +--------+---+---+ | Given | 12/15/19 | 100 mg | | | | | 20 8:28 | | | | | | PM PDT | | | | +-------+ +--------+---+---+ +---+---+ | | | +---+---+ + +-------+ +------+---+---+ | doxazosin (CARDURA) tablet 4 mg | Given | 12/16/19 | 4 mg | | | | 4 mg, Oral, EVERY 12 HOURS, | | 20 9:20 | | | | | First dose on [facility] 12/15/19 at 2100 | | AM PDT | | | | + +-------+ +------+---+---+ +-------+ +------+---+---+ | Given | 12/15/19 | 4 mg | | | | | 20 8:28 | | | | | | PM PDT | | | | +-------+ +------+---+---+ +---+---+ | | | +---+---+ + +---------+ +--------+ +---+ | lactated ringers (LR) infusion | New Bag | 12/15/19 | 1,000 | 50 mL/hr | | | at 10-100 mL/hr, Intravenous, | | 20 6:16 | mLs | | | | CONTINUOUS, Starting [facility] 12/15/19 | | PM PDT | | | | | at 1830, TKO., Pre-op | | | | | | + +---------+ +--------+ +---+ + +---+ | | | + +---+ | ondansetron (ZOFRAN ODT) | | | disintegrating tablet 4 mg 4 mg, | | | Oral, EVERY 6 HOURS PRN, Nausea, | | | Vomiting, Starting [facility] 12/15/19 | | | at 2003, First line agent, | | + +---+ | | | + +---+ + +-------+ +------+---+---+ | ondansetron (ZOFRAN) injection | Given | 12/15/19 | 4 mg | | | | 4 mg 4 mg, Intravenous, EVERY 6 | | 20 5:11 | | | | | HOURS PRN, Nausea, Vomiting, | | PM PDT | | | | | Starting [facility] 12/15/19 at 1700 | | | | | | + +-------+ +------+---+---+ + +---+ | | | + +---+ | ondansetron (ZOFRAN) injection | | | 4 mg 4 mg, Intravenous, EVERY 6 | | | HOURS PRN, Nausea, Vomiting, | | | Starting [facility] 12/15/19 at 2003, | | | First line agent. Use PO option | | | unless NPO status or unable to | | | tolerate., | | + +---+ | | | + +---+ + +-------+ +-------+---+---+ | pantoprazole (PROTONIX) DR | Given | 12/16/19 | 40 mg | | | | tablet 40 mg 40 mg, Oral, DAILY, | | 20 9:21 | | | | | First dose on Thu12/16/19 at | | AM PDT | | | | | 0900, Do not cut or crush., | | | | | | | Indication: GERD | | | | | | + +-------+ +-------+---+---+ +---+---+ | | | +---+---+ + +-------+ +--------+---+---+ | senna (SENOKOT) tablet 8.6 mg | Given | 12/16/19 | 8.6 mg | | | | 8.6 mg, Oral, 2 TIMES DAILY, | | 20 9:21 | | | | | First dose on Thu12/15/19 at | | AM PDT | | | | | 2100, If docusate ineffective or | | | | | | | not ordered, give BID until BM, | | | | | | | then PRN. Hold for loose stools, | | | | | | | | | | | | | + +-------+ +--------+---+---+ +-------+ +--------+---+---+ | Given | 12/15/19 | 8.6 mg | | | | | 20 8:28 | | | | | | PM PDT | | | | +-------+ +--------+---+---+ +---+---+ | | | +---+---+ + +---------+ +--------+-------+---+ | sodium chloride 0.9% (NS) | New Bag | 12/16/19 | 1,000 | 100 | | | infusion at 100 mL/hr, | | 20 6:16 | mLs | mL/hr | | | Intravenous, CONTINUOUS, Starting | | AM PDT | | | | | [facility] 12/15/19 at 2030 | | | | | | + +---------+ +--------+-------+---+ +---------+ +--------+-------+---+ | New Bag | 12/15/19 | 1,000 | 100 | | | | 20 8:23 | mLs | mL/hr | | | | PM PDT | | | | +---------+ +--------+-------+---+ +---+---+ | | | +---+---+ + +-------+ + +---+---+ | sulfamethoxazole-trimethoprim | Given | 12/16/19 | 1 tablet | | | | (BACTRIM DS) 800-160 mg per | | 20 10:39 | | | | | tablet 1 tablet 1 tablet, Oral, | | AM PDT | | | | | ONCE, 12/16/19 at 1000, For 1 | | | | | | | dose, Indications: Surgical | | | | | | | Prophylaxis | | | | | | + +-------+ + +---+---+ +---+---+ | | | +---+---+ documented in this encounter Additional Health Concerns + [...]
--- OUTSIDE RECORDS SUMMARY | ~2020-01-23 | XMS | Encounter Summary ---
Demographics + + + | Address | [address] | | | [place] [address] | + + + | Home Phone | | + + + | Preferred Language | Unknown | + + + | Marital Status | | + + + | Gnosticism Affiliation | 1013 | + + + | Race | Unknown | + + + | Ethnic Group | Unknown | + + + Author + + + | Author | [facility] | | | and [place] | + + + | Organization | [facility] | | [...] | | | | | [place] [address] | | + + + + + | Melissa Sheldon | ECON | [address] | | | | | [place] [address] | | + + + + + Care Team Providers + +------+ + | Care Seasonal Recruiter Name | Role | Phone | [...] + + | 06/01/ | Office | [facility] | Mike, | 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 Pulmonary Follow Up [...] table. He is wearing it reliably at [facility]. He is coughing almost not at all, [...] he is still desaturating at night, per [facility]'s request. 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 : 1935 Age: 77 Sex: M Unit #: [id number] | | | Exam Date: 06/01/12 Location: [facility] | | | Report #: [id number] Page: | | | %(RAD)RES..mtdd.print.filter("pg") of %(RAD) | | | RES..mtdd.print.filter("tpg") | | | | | | Accession Number: [id number] | | | CHEST PA AND LATERAL, [...] Transcribed Date/Time: 06/01/2012 15:42 | | | Budget Accountant: <<Signature on File>> | | | | | | Rakesh Guerrero MD06/01/122004 <Electronically signed by Rakesh Whitmore | | | Yolanda TERAN> Rakesh Guerrero MD 06/01/12 1414 | | | Budget Accountant: Cayetano Ynjettcayzofx43/11/12 9935 | | | Carmelita Mckeon MD | | + + + + + + + + | Performing | Address | City/State/Zipcode | Phone Number | | Organization | | | | + + + + + | [facility] | [address] | [place] | [phone] | | [facility] | | [address] | | | - IMAGING | | [...]
--- OUTSIDE RECORDS SUMMARY | ~2020-01-23 | XMS | Encounter Summary ---
Demographics + + + | Address | [address] | | | [place] [address] | + + + | Home Phone | | + + + | Preferred Language | Unknown | + + + | Marital Status | | + + + | Yarsanism Affiliation | 1013 | + + + | Race | Unknown | + + + | Ethnic Group | Unknown | + + + Author + + + | Author | [facility] | | | and [place] | + + + | Organization | [facility] | | | [...] | | | | | [place] [address] | | + + + + + | Melissa Daley | ECON | [address] | | | | | [place] [address] | | + + + + + Care Team Providers + +------+ + | Care Business Continuity Consultant Name | Role | Phone | + [...] Penny MD | | | | | [place], | | | | | | [place] [address] | | | | | | [phone] | | | +--------+--------+ + + + [...] [place] | | | | | | [address] | | | | | | | [...]
--- OUTSIDE RECORDS SUMMARY | ~2020-01-23 | XMS | Encounter Summary ---
Demographics + + + | Address | [address] | | | [place] [address] | + + + | Home Phone | | + + + | Preferred Language | Unknown | + + + | Marital Status | | + + + | Uatsdin Affiliation | 1013 | + + + [...] | | | | | [place] [address] | | + + + + + | Melissa Daley | ECON | [address] | | | | | [place] [address] | | + + + + + Care Team Providers + +------+ + | Care Income Auditor Name | Role | Phone | + [...] MD | Dx) | | | | [place], | | | | | | [place] [address] | | | | | | [phone] | | | +--------+ + + + [...] [place] | | | | | | [address] | | | | | | | [...]
--- OUTSIDE RECORDS SUMMARY | ~2020-01-23 | XMS | Encounter Summary ---
Demographics + + + | Address | [address] | | | [place] [address] | + + + | Home Phone [...] + + | Author | [facility] | | | and [place] | + + + | Organization | [facility] | | | [...] | | | | | [place] [address] | | + + + + + | Melissa Daley | ECON | [address] | | | | | [place] [address] | | + + + + + Care Team Providers + +------+ + | Care Pot Firer Name | Role | Phone | + +------+ + PCP | Unavailable | + +------+ + Encounter Details +--------+ + + + + | Date | Type | Department | Care Team | Description | +--------+ + + + + | 04/09/ | Hospital | [facility] | | | | 2000 | Encounter | MED CTR XRAY [address] | | | | | | [place] | | | | | | [place] [address] | | | | | | [phone] | | | +--------+ + + + [...] [place] | | | | | | [address] | | | | | | | | +--------+---------+ + + + documented as of this encounter Visit Diagnoses Not on filedocumented in this encounter"
--- OUTSIDE RECORDS SUMMARY | ~2020-01-23 | XMS | Encounter Summary ---
Demographics + + + | Address | [address] | | | [place] [address] | + + + | Home Phone [...] | | | | | [place] [address] | | + + + + + | Melissa Daley | ECON | [address] | | | | | [place] [address] | | + + + + + Care Team Providers + +------+ + | Care Grocery Sacker Name | Role | Phone | + [...] | | | [address] | [place] [address] | | | | | [place] [address] | | | | | | [phone] | | | +--------+ + + + [...] [place] | | | | | | [address] | | | | | | | [...]
--- OUTSIDE RECORDS SUMMARY | ~2020-01-23 | XMS | Encounter Summary ---
Demographics + + + | Address | [address] | | | [place] [address] | + + + | Home Phone [...] | | | | | [place] [address] | | + + + + + | Melissa Daley | ECON | [address] | | | | | [place] [address] | | + + + + + Care Team Providers + +------+ + | Care Floor Inspector Name | Role | Phone | + +------+ + PCP | Unavailable | + +------+ + Encounter Details +--------+ + + + + | Date | Type | Department | Care Team | Description | +--------+ + + + + | 09/19/ | Hospital | [facility] | Rakesh Ruiz MD | | | 2005 | Encounter | MED CTR GENERIC OP | [address], [place] | | | | | CONV DEPT [address] [place], [place] | | | | | [place], | [address] | | | | | [place] [address] | | | | | | [phone] | | | +--------+ + + + [...] [place] | | | | | | [address] | | | | | | | | +--------+---------+ + + + documented as of this encounter Visit Diagnoses Not on filedocumented in this encounter"
--- OUTSIDE RECORDS SUMMARY | ~2020-01-23 | XMS | Encounter Summary ---
Demographics + + + | Address | [address] | | | [place] [address] | + + + | Home Phone | | + + + | Preferred Language | Unknown | + + + | Marital Status | | + + + | Temple Affiliation | 1013 | + + + | Race | Unknown | + + + | Ethnic Group | Unknown | + + + Author + + + | Author | [facility] | | | and [place] | + + + | Organization | [facility] | | | [...] | | | | | [place] [address] | | + + + + + | Melissa Daley | ECON | [address] | | | | | [place] [address] | | + + + + + Care Team Providers + +------+ + | Care Paint Spraying Machine Operator Helper Name | Role | Phone | [...] + + | 12/14/ | Anesthesia | [facility] | Pietro Tang | | | 2020 | Event | [facility] | P, MD [address] | | | | | [address] | [address] [place], [place] | | | | | [place], [place] | [address] | | | | | [address] | [phone] | | | | | [phone] | | | +--------+ + + + + Anesthesia Record + + + + + | Procedure Name | Responsible | Anesthesia Start | Anesthesia Stop Time | | | Anesthesiologist | Time | | + + + + + | CYSTOSCOPY PLACEMENT | Pietro P Kitty, | 12/15/191823 | 12/15/191910 | | URETERAL STENT | MD | | | | (Left Ureter) | | | | + + + + + +----+---+ + + | Da | T | Event | Comment | | te | i | | | | | m | | | | | e | | | +----+---+ + + | 06 | 1 | | | | /2 | 8 | | | | 5/ | 1 | | | | 20 | 5 | | | | 20 | | | | +----+---+ + + | | 1 | An Checkout | Pre-use anesthesia machine/equipment checkout. | | | 8 | | | | | 1 | | | | | 5 | | | +----+---+ + + | | 1 | An Start | | | | 8 | Data | | | | 2 | | | | | 0 | | | +----+---+ + + | | 1 | An Start | Room ready, anesthesia equipment checked, essential drugs & | | | 8 | | equipment available. Patient Identity checked, anesthesia plan | | | 2 | | explained and consent obtained. Patient transported to OR, | | | 4 | | Monitors applied. Reassessment prior to anesthesia | | | | | induction/procedure. | +----+---+ + + | | 1 | an trinh now | | | | 8 | | | | | 2 | | | | | 6 | | | +----+---+ + + | | 1 | Antibiotic | | | | 8 | Given | | | | 2 | | | | | 7 | | | +----+---+ + + | | 1 | Preoxygenat | Oxygen administered, patient sedated, ventilating spontaneously. | | | 8 | ed | | | | 2 | | | | | 8 | | | +----+---+ + + | | 1 | An | | | | 8 | Induction | | | | 3 | | | | | 0 | | | +----+---+ + + | | 1 | An | Smooth IV induction, easy mask airway. LMA placed and well | | | 8 | Intubation | seated. Breathing Circuit attached to LMA. BSEB/ETCO2 | | | 3 | | (auscultation and capnography) and placement confirmed. | | | 1 | | | +----+---+ + + | | 1 | AN Bite | | | | 8 | Block | | | | 3 | | | | | 2 | | | +----+---+ + + | | 1 | Roscoe | | | | 8 | 43-degrees | | | | 3 | | | | | 5 | | | +----+---+ + + | | 1 | Pre-Procedu | | | | 8 | ral Timeout | | | | 3 | Completed | | | | 9 | | | +----+---+ + + | | 1 | First | | | | 8 | Inc/Proc St | | | | 4 | | | | | 1 | | | +----+---+ + + | | 1 | Roscoe off | | | | 8 | | | | | 5 | | | | | 6 | | | +----+---+ + + | | 1 | Extubation/ | | | | 9 | Airway LDA | | | | 0 | Removal | | | | 2 | | | +----+---+ + + | | 1 | an trinh now | PACU | | | 9 | | | | | 0 | | | | | 6 | | | +----+---+ + + | | 1 | an stop | | | | 9 | data | | | | 0 | | | | | 6 | | | +----+---+ + + | | 1 | An Stop | Patient handed off to recovery nurse. | | | 1 | | | | | 1 | | | +----+---+ + + +------+ | Meds | +------+ + + + | Name | Total | + + + | propofol | 80 mg | + + + | propofol | 54.35 mg | + + + | cefTRIAXone (ROCEPHIN) 2 g in | 2 g | | sodium chloride 0.9% 50 mL IVPB | | + + + | lactated ringers (LR) infusion | 400 mL | + + + + + | Name | + + | N2O Flow Rate (L/Min) | + + | O2 Flow Rate (L/Min) | + + | Insp O2 | + + | Exp SEV | + + | Air Flow Rate (L/Min) | + + + + | No blood administrations on file. | + + +--------+ + + + | Type | Details | Placement | Removal | +--------+ + + + | Periph | 12/15/19; 1720; yes; Left; | 12/15/19 1720 by | 12/16/19 1255 by | | pamela | Anterior (palmar); Upper Arm; 20 | Letitia Randall RN | Jeanna Warner RN | | IV | gauge; no longer indicated, | | | | | removed per policy/procedure, | | | | | catheter/device intact; short | | | | | term use; 12/16/19; 1255 | | | +--------+ + + + | Airway | Placement Date: 12/15/19; | 12/15/191830 by | 12/15/191901 by | | | Placement Time: 1830 (created via | Pietroluis alberto Tang, | Pietroluis alberto Tang, | | | procedure documentation); Mask | MD | MD | | | Ventilation: EZ; Attempts: 1; | | | | | Airway Type: laryngeal mask; | | | | | Size: 5; Trauma: none; Placement | | | | | Check: exhaled CO2 detection | | | | | device, bilateral chest rise, | | | | | breath sounds equal bilaterally; | | | | | Removal Date: 12/15/19; Removal | | | | | Time: 1901; Additional Comments: | | | | | Smooth IV induction. LMA placed | | | | | and well seated. Secured in | | | | | place. Breathing Circuit attached | | | | | to LMA. BSEB/ETCO2 | | | | | (auscultation and capnography) | | | | | and placement confirmed. | | | +--------+ + + + | Wound | 12/15/19; 185; Incision; penis; | 12/15/191855 by | 12/16/19 1255 by | | | Healing (discharging with wound); | Levy Ahn RN | Jeanna Warner RN | | | 12/16/19; 1255 | | | +--------+ + + + documented in this encounter Social History + +-------+ +--------+------+ | Tobacco [...] + + documented as of this encounter OR Notes Anesthesia Postprocedure Evaluation - Pietro Tang MD - 12/15/2019 9:48 PM PDTForm atting of this note might be different from the original. ANESTHESIA POSTANESTHESIA EVALUATION Ron Daley 84 y.o. male 1935 [id number] Procedure(s) CYSTOSCOPY PLACEMENT URETERAL STENT (Left Ureter) Cooperates? Yes Mental Status Performs simple tasks. Respiratory Satisfactory - Airway patent (self maintained). Cardiovascular Satisfactory - Blood pressure and heart rate acceptable Temperature Satisfactory Pain Satisfactory N/V Control Satisfactory Hydration Satisfactory - No signs of dehydration Adverse Events ADVERSE EVENTS: No adverse events Vitals Value Taken Time Temp 36.7 C (98.1 F) 12/15/192145 Pulse 70 12/15/192145 Resp 24 12/15/192145 BP 165/79 12/15/192145 Arterial Line BP Arterial Line BP 2 SpO2 91 % 12/15/192145 Electronically signed by Pietro Tang MD 12/15/2019 9:48 PM PDT [facility] nesthesia Procedure Notes - Pietro Tang MD - 12/15/2019 6: 35 PM PDTAssociated Order(s): AirwayAnesthesia Airway Placement 12/15/2019 6:31 PM Preprocedure check: patient identified, oxygen, airway assessed, patient reassessment prior to induction, airway equipment checked and suction Rapid Sequence Induction: no Mask ventilation: easy Attempts: 1 Airway type: laryngeal mask Size: 5 Cuffed: cuffed Route, reference point: center of mouth Tube secured with: adhesive tape Trauma: none Tube placement verification: carbon dioxide detection, equal bilateral breath sounds and bi lateral chest rise Performing provider: Pietro Tang MD Authorizing provider: Pietro Tang MD Comments: Smooth IV induction. LMA placed and well seated. Secured in place. Breathing Circuit attached to LMA. BSEB/ETCO2 (auscultation and capnography) and placement confirmed. Please see intraoperative grid for any additional medication documentation. nesthesia Prepro cedure Evaluation - Pietro Tang MD - 12/15/2019 5:49 PM PDT ANESTHESIA PREANESTHESIA EVALUATION Ron Shaht 84 y.o. male 1935 [id number] Procedure(s): CYSTOSCOPY PLACEMENT URETERAL STENT (Left Ureter) Review of Systems / Med History Cardiovascular Exercise tolerance <4 METS (+) hypertension (+) Dysrhythmias: (+) PVD: . Pulmonary Stop Bang Score: 5. Gastrointestinal/Hepatic (+) hypercholesterolemia. (+) acid reflux. Endocrine (+) obesity: BMI (30-39) (+) Diabetes: Neuromuscular (+) chronic pain. Physical Exam Airway MP III, TM >3 FB, Mouth opening >2 FB. Neck: limited ROM, extends <30 degrees. Jaw pro trusion limited. CV Rhythm regular. Rate normal. Anesthesia Plan ASA: 3 Type: General. Induction: Intravenous. Potential problems: None anticipated, none anticipated. Monitors: Standard ASA monitors. Consent statement: Anesthetic plan, alternatives, risks and benefits discussed with patient. Consenting person understands and agrees to proceed. Patient Active Problem List: Bronchiectasis Beta Blockers - Daily Use GERD [...] Ureteral calculus, left 1st degree AV block . Electronically Signed by: Pietro Tang MD ESig date/time: 12/15/2019 5:49 PM PDT documented in thi s encounter Plan of [...] + + documented in this encounter Results Airway (12/15/2019 6:35 PM PDT) + + [...] medication documentation. | | + + + documented in this encounter Visit Diagnoses Not on filedocumented in this encounter Administered Medications + +--------+ +------+------+------+ | Medication Order | MAR | Action | Dose | Rate | Site | | | Action | Date | | | | + +--------+ +------+------+------+ | cefTRIAXone (ROCEPHIN) 2 g in | Bolus | 12/15/19 | 2 g | | | | sodium chloride 0.9% 50 mL IVPB | | 20 6:27 | | | | | 2 g, Intravenous, Administer over | | PM PDT | | | | | 30 Minutes, Prior to Incision, | | | | | | | Starting Laura 12/15/19 at 1659, For | | | | | | | 1 dose, Activate system and mix | | | | | | | before use., Pre-op, Indications: | | | | | | | Surgical Prophylaxis | | | | | | + +--------+ +------+------+------+ +---------+ +-----+-------+---+ | New Bag | 12/15/19 | 2 g | 100 | | | | 20 6:15 | | mL/hr | | | | PM PDT | | | | +---------+ +-----+-------+---+ +---+---+ | | | +---+---+ + +---------+ + +-------+---+ | propofol (DIPRIVAN) injection | New Bag | 12/15/19 | 50 | 32.6 | | | Intravenous, CONTINUOUS PRN, | | 20 6:35 | mcg/kg/m | mL/hr | | | Starting Laura 12/15/19 at 1835, | | PM PDT | in | | | | Anesthesia Intra-op | | | | | | + +---------+ + +-------+---+ +---+---+ | | | +---+---+ + +-------+ +-------+---+---+ | propofol (DIPRIVAN) injection | Given | 12/15/19 | 80 mg | | | | Intravenous, PRN, Starting Laura | | 20 6:30 | | | | | 12/15/19 at 1830, Anesthesia | | PM PDT | | | | | Intra-op | | | | | | + +-------+ +-------+---+---+ +---+---+ | | | +---+---+ documented in this encounter"
--- OUTSIDE RECORDS SUMMARY | ~2020-01-23 | XMS | Encounter Summary ---
Demographics + + + | Address | [address] | | | [place] [address] | + + + | Home Phone [...] | | | | | [place] [address] | | + + + + + | Melissa Daley | ECON | [address] | | | | | [place] [address] | | + + + + + Care Team Providers + +------+ + | Care Mobile Unit Assistant Name | Role | Phone | + [...] | | | | | | [place] [address] | | | | | | | Phone: | | | | | | | [phone] | | | | | | | Fax: | | | | | | | [phone] | +--------+--------+ + + + + Encounter Details +--------+---------+ + + + | Date | Type | Department | Care Team | Description | +--------+---------+ + + + | 03/05/ | Office | [facility] | Donnie Palacios, | Primary | | 2017 | Visit | ORTHOPEDIC SURGERY | MD Jorge [address] | 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
--- OUTSIDE RECORDS SUMMARY | ~2020-01-23 | XMS | Encounter Summary ---
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, | | organizing | | | | [place] [address] | | pneumonia) (HCC) | | | | [phone] | | (Primary Dx); | | | [...] Janis [facility] [place] [facility] [address] [place], [address] HPI Ron Sheldon is a 78 y.o. [...] made to ensure accuracy; however, inadvertent computerized buck presser errors may be pre sent. Katelynn in [...] [place] | | | | | | [address] | | | | | | | [...] Performed At | + + + | [facility] | [place] | | Department [address] [facility] | [facility] | | [ rep ct [address]] [ rep ct [facility] | | st zip] Signed | - IMAGING | | | | | Patient Name: RON SHELDON V Physician: | | | DOROTEO. : 1935 Age: 78 Sex: M Unit #: [id number] | | | Exam Date: 07/26/13 Location: [facility] | | | Report #: [id number] Page: | | | %(RAD)RES..mtdd.print.filter("pg") of %(RAD) | | | RES..mtdd.print.filter("tpg") | | | | | | Accession Number: [id number] | | | CHEST, PA AND LATERAL, [...] Transcribed Date/Time: 07/26/2013 16:02 | | | Marine Service Operator: <<Signature on File>> | | | | | | Kiko Hair MD07/26/131 <Electronically signed by Kiko | | | Melina Hair MD> Kiko Hair MD 07/26/13 1432 | | | Marine Service Operator: Phagenesisanabelle Tvjqylznbytwv52/04/14 1602 | | | Carmelita Mckeon MD | | + + + + + + + + | Performing | Address | City/State/Zipcode | Phone Number | | Organization | | | | + + + + + | [facility] | [address] | [place] | [phone] | | [facility] | | [address] | | | - IMAGING | | [...]
--- OUTSIDE RECORDS SUMMARY | ~2020-01-23 | XMS | Encounter Summary ---
Demographics + + + | Address | [address] | | | [place] [address] | + + + | Home Phone | | + + + | Preferred Language | Unknown | + + + | Marital Status | | + + + | Scientologist Affiliation | 1013 | + + + | Race | Unknown | + + + | Ethnic Group | Unknown | + + + Author + + + | Author | [facility] | | | and [place] | + + + | Organization | [facility] | | | and [place] | + + + | Address | Unknown | + + + | Phone | Unavailable | + + + Support + + + + + | Name | Relationship | Address | Phone | + + + + + | Katie Yusfu | ECON | [address] | | | | | [place] [address] | | + + + + + | Melissa Daley | ECON | [address] | | | | | [place] [address] | | + + + + + Care Team Providers + +------+ + | Care Head Of English Name | Role | Phone | + +------+ + | Bunny Corcoran | PCP | | | MD | | | + +------+ + Reason for Visit + +--------+ + | Reason | Onset | Comments | | | Date | | + +--------+ + | Appointment | 12/19/ | | | | 2020 | | + +--------+ + Encounter Details +--------+ + + + + | Date | Type | Department | Care Team | Description | +--------+ + + + + | 12/19/ | Telephone | [facility] | Kiko Garrido, | Appointment | | 2019 | | [address] | MD [address] | | | | | [place] | [place] | | | | | [address] | [address] | | | | | [phone] | | | +--------+ + + + [...] this encounter Miscellaneous Notes Telephone Encounter - Janey Rangel - 12/21/2019 10:14 AM PDTPatients daughter kandace mccracken and stated patient was in ER yesterday at [facility] and they told her it was due to con stipation and they did a straight cath on pt and got 400cc of residual urine. She stated the y did a CT yesterday at [place]. Please call miya Wilson at work at [phone] all signed by Janey Rangel at 12/21/2019 10:18 AM PDTTelephone Encounter - Oralia Mathis Cas Barrel Raiser Helper - 12/20/2019 3:59 PM PDTLeft call back message. Reason fo r call is regarding patients upcoming appointment on 12/26/2019 with KUB prior. Called katie dubon vm Informing her that llyod needs a KUB done prior to appoointment. P DTdocumented in this encounter Plan of Treatment +--------+---------+ + + + | Date | Type | Specialty | Care Team | Description | +--------+---------+ + + + | 01/21/ | Office | Urology | Kiko Garrido, | | | 2020 | Visit | | MD [address] | | | | | | [place] | | | | | | [id number] | | | | | | | | +--------+---------+ + + + documented as of this encounter Visit Diagnoses Not on filedocumented in this encounter"
--- OUTSIDE RECORDS SUMMARY | ~2020-01-23 | XMS | Encounter Summary ---
Demographics + + + | Address | [address] | | | [place] [address] | + + + | Home Phone [...] | | | | | [place] [address] | | + + + + + | Melissa Sheldon | ECON | [address] | | | | | [place] [address] | | + + + + + Care Team Providers + +------+ + | Care Rail Engineer Name | Role | Phone | + +------+ + | Jona Deal MD | PCP | | + +------+ + Encounter Details +--------+ + + + + | Date | Type | Department | Care Team | Description | +--------+ + + + + | 07/21/ | Hospital | [facility] | Offenstein, | BOOP (bronchiolitis | | 2012 - | Encounter | MED CTR XRAY [address] | Carmelita Penny MD | obliterans with | | | | [place] | | organizing | | 07/23/ | | [place] [address] | | pneumonia) (HCC) | | 2012 | | [phone] | | | +--------+ + + + [...] | | | | | | pneumonia) ([facility]) | | | | | [...] | | | | | | pneumonia) ([facility]) | | | | | [...] [place] | | | | | | [address] | | | | | | | [...] Performed At | + + + | [facility] | [place] | | Department [address] [facility] [place] | [facility] | | [ rep ct [address]] [ rep ct [facility] | | st zip] Signed | - IMAGING | | | | | Patient Name: RON SHELDON V Physician: | | | OFFE. : 1935 Age: 77 Sex: M Unit #: [id number] | | | Exam Date: 07/21/12 Location: [facility] | | | Report #: [id number] Page: | | | %(RAD)RES..mtdd.print.filter("pg") of %(RAD) | | | RES..mtdd.print.filter("tpg") | | | | | | Accession Number: [id number] | | | PA AND LATERAL TWO [...] Transcribed Date/Time: | | | 07/21/2012 11:27 Emergency Physician: | | | <<Signature on File>> | | | Kiko | | | Melina Hair MD07/21/121920 <Electronically signed by Kiko Summers | | | Laxmi TERAN> Kiko Hair MD 07/21/12 1121 | | | Emergency Physician: Blend Bnufwlwkzkqhv83/30/13 1127 | | | Carmelita Mckeon MD | | + + + + + + + + | Performing | Address | City/State/Zipcode | Phone Number | | Organization | | | | + + + + + | [facility] | [address] 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
--- OUTSIDE RECORDS SUMMARY | ~2020-01-23 | XMS | Encounter Summary ---
Demographics + + + | Address | [address] | | | [place] [address] | + + + | Home Phone | | + + + | Preferred Language | Unknown | + + + | Marital Status | | + + + | Sabianism Affiliation | 1013 | + + + | Race | Unknown | + + + | Ethnic Group | Unknown | + + + Author + + + | Author | [facility] | | | and [place] | + + + | Organization | [facility] | | | [...] | | | | | [place] [address] | | + + + + + | Melissa Daley | ECON | [address] | | | | | [place] [address] | | + + + + + Care Team Providers + +------+ + | Care Stopper Maker Helper Name | Role | Phone | + +------+ + | Jona Deal MD | PCP | | + +------+ + Reason for Visit + + + | Reason | Comments | + + + | New Patient | New Pt: Right Foot/Ankle Onset x10 years ago (Surgery with | | | - Ankle Fusion) | + + + Evaluate & Treat (Routine) +--------+--------+ + + + + | Status | Reason | Specialty | Diagnoses / | Referred By | Referred To | | | | | Procedures | Contact | Contact | +--------+--------+ + + + + | Closed | | Orthopedic | Diagnoses | Toyin, | Philip | | | | Surgery | Pain in | Jona | Donnie Summers MD | | | | | joint, ankle | MD Audie | [address] | | | | | and foot | [address] | [place] | | | | | | [address] | [place] [address] | | | | | | [place], | Phone: | | | | | | [place] | [phone] | | | | | | [address] | Fax: | | | | | | Phone: | [phone] | | | | | | [phone] | | | | | | | Fax: | | | | | | | [phone] | | +--------+--------+ + + + + Encounter Details +--------+---------+ + + + | Date | Type | Department | Care Team | Description | +--------+---------+ + + + | 07/28/ | Office | [facility] | Donnie Palacios, | Plantar fasciitis of | | 2017 | Visit | ORTHOPEDIC SURGERY | MD [address] | right foot (Primary | | | | [address] [place] | [place] | Dx) | | | | [place] | [id number] | | | | | [address] | | | | | | [phone] | | | +--------+---------+ + + + [...] + + + + | Weight | 106.6 kg (235 lb) | 07/28/2016 1:54 PM | | | | | PST | | + + + + + | Height | 175.3 cm (5' 9") | 07/28/2016 1:54 PM | | | | | PST | | + + + + + | Body Mass Index | 34.7 | 07/28/2016 1:54 PM | | | | | PST | | + + + + + documented in this encounter Progress Notes Donnie Palacios MD - 07/28/2016 2:22 PM PSTFormatting of this note might be different fro m the original. History of present illness: Ron is a 81 y.o. male who presents with a chief complaint of right heel pain Patient had long-standing symptoms of right heel pain He localizes the pain over the proximal plantar heel and he has had symptoms for about a ye ar and a half He previously had a right ankle joint fusion by Dr. tang in 2005 with a external fixat or This failed any of the second surgery by Dr. tang with internal fixation that successf ully resulted in fusion of the ankle joint This has largely been successful for him in terms of pain relief However he has some medial and sinus Tarsi symptoms that are probably attributable to the s ubtalar joint arthrosis But the symptoms are not as bad as what he is currently experiencing in his heel He had a one-time injection by Dr. 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) Acute respiratory failure with hypoxia (HCC) Hypertension Dyslipidemia Colon polyps Acid reflux disease Cough Sinus infection Hyperlipidemia Diverticulosis Nephrolithiasis recurrent, calcium oxalate crystals Cataract Carpal tunnel syndrome Osteoarthritis Walking pneumonia Diabetes mellitus, type 2 (HCC) Past Surgical History Procedure Laterality Date Colonoscopy Appendectomy age 8 Cholecystectomy Ankle fusion right, x2 Shoulder surgery x2 Back surgery x3 including 2 laminectomies and one fusion Total knee arthroplasty Tonsillectomy Carpal tunnel release Kidney stones removed Allergies Allergen Reactions Iodine IV Iodine Meperidine Morphine Current Outpatient Prescriptions on File Prior to Visit Medication Sig Dispense Refill acetaminophen (TYLENOL) 650 MG CR tablet Take 650 mg by mouth every 8 hours as needed. allopurinol (ZYLOPRIM) 100 mg tablet Take 200 mg by mouth Daily. amLODIPine (NORVASC) 5 mg tablet Take 2.5 mg by mouth Daily. atenolol (TENORMIN) 100 MG tablet Take 100 mg by mouth 2 times daily. No current facility-administered medications on file prior to visit. Family History Problem Relation Age of Onset Heart attack Father Kidney disease Sister Other (see comment) Sister hemodialysis Hypertension Sister Diabetes Sister Social History Social History Marital Status: Spouse Name: N/A Number of Children: N/A Years of Education: N/A Occupational History Not on file. Social History Main Topics Smoking status: Never Smoker Smokeless tobacco: Never Used Alcohol Use: No Drug Use: No Sexual Activity: Not on file Other Topics Concern Not on file Social History Narrative No narrative on file Review of Systems This has been reviewed. All other entries are negative except for those checked below. Lauren Pandya-Everardo Eyes: [] Double vision [] Glasses/contacts [] Failing vision Ear/Nose/Throat: [] Frequent Colds [] Sinus Disease [] Nose obstruction [] Sneezing Spells [] Change in taste [] Artificial teeth [] Ears ringing [] Ear pain [x] Hearing los s [] Teeth problems [] Hoarseness [] Neck swelling [] Sore throat [] Congestion [] Nosebleeds [] Nasal allergies Respiratory: [] Asthma/Wheezing [] Pneumonia [] Night sweats [] Shortness of breath [] Chronic cough [] Coughing up blood [] Exposure to tuberculosis Cardiovascular: [] Heart Problems [x] Hypertension [] Heart murmur [] Palpitations [] Rheumatic fever [] Phlebitis [] Chest pain [x] Ankle swelling [] Leg cramps [] Raci ng heart [] Skipping beats [] Blood clots Gastrointestinal: [] Abdominal pain [] Heartburn [] Blood from rectum [] Colitis [] Gallbladder problems [] Troubl e swallowing [] Bloated stomach [] Change in stools [] Vomiting blood [] Nausea [] Hemorrhoids [] Jaundice [ ] Hepatitis [] Diarrhea [] Constipation [] Diverticulitis Urinary Tract: [] Painful urination [] Kidney Stones [] Any urine leakage [] Weak urine stream [x] Night urination [] Urine infections [] Bedwetting [] Blood in urine Skin: [] Skin rashes [] Itching/Burning [] Skin bruises easil y [] Artificial tanning [] Skin cancer [] Hair loss [] Changes in moles Musculoskeletal: [x] Physical handicaps [] Back or shoulder pain []Rheumatoid disease [x] Osteoarthritis [] Joint pain [] Joint swelling []Gout [] Leg cramps at night Neurological: [] Headaches [] Seizures [] Stroke/TIA [] Faintness [] Tremors [] Numbness [] Dizziness [] Changes in handwriting [] Memory loss [] Shooting pains Psychiatric: [] Depression [] Suicidal thoughts [] Sleep pattern changes [] Appetite changes [] Recent counseling [] Nervousness/anxiety [] Physical violence [] Marital problems Endocrine: [] Thyroid [] Diabetes Systemic: []Weight loss/gain (over 10 lbs) []Fever/chills []Fatigue [] Sleeping Difficulties [] Speech change [] Voice change Filed Vitals: 07/28/16 1354 PainSc: 9 PainLoc: Foot Estimated body mass index is 34.69 kg/(m^2) as calculated from the following: Height as of this encounter: 1.753 m (5' 9"). Weight as of this encounter: 106.595 kg (235 lb). On physical exam he has an anterior ankle scar that is healed without complication He has a short jog of ankle dorsiflexion and plantarflexion He has no hindfoot inversion/eversion He has well localized tenderness over the proximal plantar fascia centrally I don't appreciate a Tinel's sign over the tarsal tunnel or medial midfoot He has intact dorsalis pedis and posterior tibial pulses No skin rashes or lesions X-rays reviewed by me with the mini C-arm and he has a solid ankle arthrodesis with mature remodeling The subtalar joint appears to be [id number] arthritis Assessment: Chronic proximal plantar fasciitis right heel The natural history and treatment options discussed with him Under sterile conditions today I injected 1 cc of Celestone into the proximal plantar fasci al region after preliminary local anesthesia I then taped him up and he will call to report on the results Failing all conservative management we discussed the role of proximal plantar fascial relea se surgery He will call us in a week and let us know how he is doing documented in this en counter Miscellaneous Notes Addendum Note - Donnie Palacios MD - 07/29/2016 1:33 PM PST Addended by: DONNIE PALACIOS on: 07/29/2016 13:33 Modules accepted: Orders documented in this encounter Plan of Treatment +--------+---------+ + + + | Date | Type | Specialty | Care Team | Description | +--------+---------+ + + + | 01/21/ | Office | Urology | Kiko Garrido, | | | 2020 | Visit | | MD [address] | | | | | | [place] | | | | | | [id number] | | | | | | | | +--------+---------+ + + + documented as of this encounter Visit Diagnoses + + | Diagnosis | + + | Plantar 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 | | | | | | | Not for IV use., | | | | | | + +--------+ +------+------+ + +---+---+ | | | +---+---+ documented in this encounter
--- OUTSIDE RECORDS SUMMARY | ~2020-01-23 | XMS | Encounter Summary ---
Demographics + + + | Address | [address] | | | [place] [address] | + + + | Home Phone [...] | | | | | [place] [address] | | + + + + + | Melissa Daley | ECON | [address] | | | | | [place] [address] | | + + + + + Care Team Providers + +------+ + | Care Speech Assistant Name | Role | Phone | + +------+ + | Bunny Corcoran | PCP | | | MD | | | + +------+ + Encounter Details +--------+ + + + + | Date | Type | Department | Care Team | Description | +--------+ + + + + | 01/05/ | Orders Only | [facility] | Kiko Garrido, | Left ureteral | | 2020 | | [address] | MD [address] | calculus (Primary | | | | [place], [place] | [place], [place] | Dx) | | | | [address] | [address] | | | | | [phone] | | | +--------+ + + + [...] [place] | | | | | | [address] | | | | | | | | +--------+---------+ + + + documented as of this encounter Results XR Abdomen AP (01/11/2020 [...] Procedure Note | + + | [place], [id number] - 01/11/2020 9:32 AM PDT XR ABDOMEN [...] Primary Calculus of ureter | + + documented in this encounter"
--- OUTSIDE RECORDS SUMMARY | ~2020-01-23 | XMS | Encounter Summary ---
Demographics + + + | Address | [address] | | | [place] [address] | + + + | Home Phone | | + + + | Preferred Language | Unknown | + + + | Marital Status | | + + + | Synagogue Affiliation | 1013 | + + + | Race | Unknown | + + + | Ethnic Group | Unknown | + + + Author + + + | Author | [facility] | | | and [place] | + + + | Organization | [facility] | | [...] | | | | | [place] [address] | | + + + + + | Melissa Daley | ECON | [address] | | | | | [place] [address] | | + + + + + Care Team Providers + +------+ + | Care Credit Verifier Name | Role | Phone | + [...] + + | 12/19/ | Telephone | [facility] | Kiko Garrido, | Appointment | | 2019 | | [address] | MD [address] | | | | | [place] | [place] | | | | | [address] | [address] | | | | | [phone] | | | +--------+ + + + [...] stated patient was in ER yesterday at [facility] and they told her it was due to con stipation and they did a straight cath on pt and got 400cc of residual urine. She stated the y did a CT yesterday at [place]. Please call miya Wilson at work at [phone] all signed by Janey Rangel at 12/21/2019 10:18 AM PDTTelephone Encounter - Oralia Mathis Cas Industrial Radiographer - 12/20/2019 3:59 PM PDTLeft call back [...] [place] | | | | | | [id number] | | | | | | | | +--------+---------+ + + + documented as of this encounter Visit Diagnoses Not on filedocumented in this encounter"
--- OUTSIDE RECORDS SUMMARY | ~2020-01-23 | XMS | Encounter Summary ---
Demographics + + + | Address | [address] | | | [place] [address] | + + + | Home Phone | | + + + | Preferred Language | Unknown | + + + | Marital Status | | + + + | Quaker Affiliation | 1013 | + + + | Race | Unknown | + + + | Ethnic Group | Unknown | + + + Author + + + | Author | [facility] | | | and [place] | + + + | Organization | [facility] | [...] | | | | | [place] [address] | | + + + + + | Melissa Daley | ECON | [address] | | | | | [place] [address] | | + + + + + Care Team Providers + +------+ + | Care Kersey Department Supervisor Name | Role | Phone | [...] | RN | | | | | [place], | | | | | | [place] [address] | | | | | | [phone] | | | +--------+ + + + [...] [place] | | | | | | [id number] | | | | | | | | +--------+---------+ + + + documented as of this encounter Visit Diagnoses Not on filedocumented in this encounter"
--- OUTSIDE RECORDS SUMMARY | ~2020-01-23 | XMS | Encounter Summary ---
Demographics + + + | Address | [address] | | | [place] [address] | + + + | Home Phone | | + + + | Preferred Language | Unknown | + + + | Marital Status | | + + + | Uatsdin Affiliation | 1013 | + + + | Race | Unknown | + + + | Ethnic Group | Unknown | + + + Author + + + | Author | [facility] | | | and [place] | + + + | Organization | [facility] | | | and [...] | | | | | [place] [address] | | + + + + + | Melissa Daley | ECON | [address] | | | | | [place] [address] | | + + + + + Care Team Providers + +------+ + | Care Car Storer Name | Role | Phone | + [...] | obliterans with | | | | [place], | | organizing | | | | [place] [address] | | pneumonia) (HCC) | | | | [phone] | | | +--------+ + + + [...] | Visit | | MD Jorge A [address]ENRI[address]EZ | | | | | | [place] | | | | | | [address] | | | | | | | | +--------+---------+ + + + documented as of this encounter Visit Diagnoses + + | Diagnosis | + + | BOOP (bronchiolitis obliterans with organizing pneumonia) ([facility]) 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
--- OUTSIDE RECORDS SUMMARY | ~2020-01-23 | XMS | Encounter Summary ---
Demographics + + + | Address | [address] | | | [place] [address] | + + + | Home Phone | | + + + | Preferred Language | Unknown | + + + | Marital Status | | + + + | Pentecostal Affiliation | 1013 | + + + | Race | Unknown | + + + | Ethnic Group | Unknown | + + + Author + + + | Author | [facility] | | | and [place] | + + + | Organization | [facility] | | | and [...] | | | | | [place] [address] | | + + + + + | Melissa Daley | ECON | [address] | | | | | [place] [address] | | + + + + + Care Team Providers + +------+ + | Care Wire Worker Name | Role | Phone | + +------+ + | Bunny Corcoran | PCP | | | MD | | | + +------+ + Encounter Details +--------+ + + + + | Date | Type | Department | Care Team | Description | +--------+ + + + + | 12/18/ | Orders Only | [facility] [place] [facility] | Kiko Garrido, | Left ureteral | | 2020 | | [address] | MD [address] | calculus (Primary | | | | [place], [place] | [place], [place] | Dx) | | | | [address] | [address] | | | | | [phone] | | | +--------+ + + + [...] [place] | | | | | | [address] | | | | | | | | +--------+---------+ + + + documented as of this encounter Visit Diagnoses + + | Diagnosis | + + | Left ureteral calculus - Primary Calculus of ureter | + + documented in this encounter"
--- OUTSIDE RECORDS SUMMARY | ~2020-01-23 | XMS | Encounter Summary ---
Demographics + + + | Address | [address] | | | [place] [address] | + + + | Home Phone | | + + + | Preferred Language | Unknown | + + + | Marital Status | | + + + | Nondenominational Affiliation | 1013 | + + + | Race | Unknown | + + + | Ethnic Group | Unknown | + + + Author + + + | Author | [facility] | | | and [place] | + + + | Organization | [facility] | | [...] | | | | | [place] [address] | | + + + + + | Melissa Daley | ECON | [address] | | | | | [place] [address] | | + + + + + Care Team Providers + +------+ + | Care Facilities Engineering Manager Name | Role | Phone [...] STENT | | | | [address] | [place], [place] | | | | | [place], [place] | [address] | | | | | [address] | | | | | | [phone] | | | +--------+---------+ + + + [...] voiding. Follow up: Call Dr Garrido's office ([phone]) to set up your follow-up appointment or [...] 1935 Date of Admission: 12/15/2019 Requesting/Referring Physician: [facility] emergency department Chief Complaint: 11 mm [...] a visit to the emergency department at [facility]. While at [facility], CT imaging was performed which demonstrated [...] nephrolithiasis BOOP (bronchiolitis obliterans with organizing pneumonia) ([facility]) Carpal tunnel syndrome Cataract Colon polyps Cough [...] file Gets together: Not on file Attends yarsani service: Not on file Active member of [...] 175 04/30/2014 PLT 169 12/15/2019 Creatinine at [facility] today is reported to be 1.5. Lab [...] surgical procedure and anesthesia including DVT, PE, NH, CVA, and even . Ron indicates his [...] Electronically signed by: Kiko Garrido MD 12/15/2019 [facility] documented in this en counter Miscellaneous Notes Plan of Care - Carmelita Mesa, REVOLVING FIELD ASSEMBLER - 12/16/2019 5:33 PM PDT Problem: Discharge Planning Goal: Patient's discharge needs will be identified in a timely manner Outcome: Met Goal: Patient will be discharged in a safe manner Outcome: Met This telephonic nurse case manager met with Ron to discuss his discharge plan. Ron states that he lives with his spouse Melissa in [place] at the [facility]. He states that he can d o his own ADLs. He doesn't use any A/D. The longterm home helps with cleaning, providing m eals. He takes his own meds. He feels he is still independent and Melissa helps with medication management. His daughter is Katie Yusuf. She will be providing transportation back to his Assisted home today. This CM met with Katie prior to Ron being discharged. We dicussed his OBS status. Provide d a brochure and a ALFRED form. Ron signed it and this CM provided him with a copy. Katie feels he is safe to return home today. PCP is Nilo, he [facility] [place]. PLAN: Home with spouse, daughter Katie to transport. lan Jeanna Kay RN - 12/16/2019 2:13 PM PDTPt adequate for discharge. PIV removed. Educated pt and pt daughter on discharge instruct ions with emphasis on calling for outpatient appointment and s/s to seek medical attention. Transferred to daughter's car via wheelchair. Daughter to drive pt back to living facility i n [place]. All questions answered. lan Destiny Dugan Chaplain - 12/16/2019 10:12 AM NIKKI Mccollum Ron Daley is a 84 y.o. male who is admitted for ureteral stone left ureteral calculus LEFT URETERAL CALCULUS. Project Management Professional visit was part of routine rounding. Spiritual Evaluation: The patient was sitting up in his bed on the surgical unit and welcomed a spiritual care vi sit. He was immediately pleasant and engaging. The patient has a long, deep, and positive e xperience in his marriage, work and taoist. He lives at an assisted living facility with hi s , whose health is challenged, but he sees her resilience. He has been over 75 years and worked over 65 years. 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 His daughter works here and came to his bedside during our vis it. He is accepting of the need for surgery and has experienced this issue several times, s ome times needing hospitalization, other times not. Spiritual Interventions: The automotive diagnostic technician attended, offered care, explored patient's life story [...] Daley 84 y.o. 1935 Med. Record Number: [id number] Date of Operation/Procedure: 12/15/2019 Preoperative Diagnosis: 11 mm mid left ureteral calculus Left hydronephrosis Left renal colic Acute Kidney Injury Postoperative Diagnosis: 11 mm mid left ureteral calculus Left hydronephrosis Left renal colic Acute Kidney Injury Surgeon: Kiko Garrido MD Retort Firer(s): None Anesthesia Provider(s): Anesthesiologist: Pietro Tang MD [...] guidance up into the renal pelvis. A 7-Cymraes X 26 cm double-J stent was placed [...] Garrido MD, 12/15/2019 7:02 PM PDT [facility] documented in this en counter Plan of [...] + | [facility] | [address] | [place] | [phone] | | [facility] | | [address] | | | - LABORATORY | | [...] [address] | [place] | [phone] | | [facility] | | [address] | | | - LABORATORY | | [...] | 1.19 | 0.70 - 1.30 | [facility] | | | | | mg/dL | [facility] | | | | | | MEDICAL | | | | | | CENTER - | | | | | | LABORATORY | | + + + + + + | eGFR, | 58 (L)Comment: | >=60 | [facility] | | | non- | GLOMERULAR FILTRATION | mL/min/1.73m2 | [facility] | | | [place] | RATE,ESTIMATED | | MEDICAL | | | | mL/min/1.68z5Ghxw than | | CENTER - | | [...] [address] | [place] | [phone] | | [facility] | | [address] | | | - LABORATORY | | [...] + | [facility] | [address] | [place] | [phone] | | [facility] | | [address] | | | - LABORATORY | | [...] | mL/min/1.73m2 | [facility] | | | [place] | RATE,ESTIMATED | | MEDICAL | | | | mL/min/1.31p2Utor than | | CENTER - | | [...] [address] | [place] | [phone] | | [facility] | | [address] | | | - LABORATORY | | [...] | | | | LILLIAN PEARSON MD ([id number]) | | | | | | on [...] [address] | [place] | [phone] | | [facility] | | [address] | | | - LABORATORY | | [...] than 38.3 | | | C, Starting [facility] 12/15/19 at 2003, | | | [...] | | | | First dose on [facility] 12/15/19 at 2100 | | AM [...] | | | | | | Starting [facility] 12/15/19 at 1659, For | | | [...] PDT | | | | | Starting [facility] 12/15/19 at 1700 | | | | | | + +-------+ +------+---+---+ + +---+ | | | + +---+ | ondansetron (ZOFRAN) injection | | | 4 mg 4 mg, Intravenous, EVERY 6 | | | HOURS PRN, Nausea, Vomiting, | | | Starting [facility] 12/15/19 at 2003, | | | First [...]
--- OUTSIDE RECORDS SUMMARY | ~2020-01-23 | XMS | Encounter Summary ---
Demographics + + + | Address | [address] | | | [place] [address] | + + + | Home Phone [...] | | | | | [place] [address] | | + + + + + | Melissa Daley | ECON | [address] | | | | | [place] [address] | | + + + + + Care Team Providers + +------+ + | Care Road Grader Name | Role | Phone | + +------+ + | Jona Deal MD | PCP | | + +------+ + Encounter Details +--------+ + + + + | Date | Type | Department | Care Team | Description | +--------+ + + + + | 06/01/ | Abstract | [facility] | Alex Nam | | | 2017 | | SURGERY [address] | MD Malaika, FACS [address] | | | [address] [place] | [address] [facility] | | | | | [address] | [place] [address] | | | | | [phone] | [phone] | | | | | | | [...] and Digit waveform s on 05/05/2017 at [facility] building specialist. RIGHT: 1.12 LEFT 1.19 NOTES: Bilateral [...] [place] | | | | | | [id number] | | | | | | | | +--------+---------+ + + + documented as of this encounter Visit Diagnoses Not on filedocumented in this encounter"
--- OUTSIDE RECORDS SUMMARY | ~2020-01-23 | XMS | Encounter Summary ---
Demographics + + + | Address | [address] | | | [place] [address] | + + + | Home Phone | | + + + | Preferred Language | Unknown | + + + | Marital Status | | + + + | Yazdanism Affiliation | 1013 | + + + | Race | Unknown | + + + | Ethnic Group | Unknown | + + + Author + + + | Author | [facility] | | | and [place] | + + + | Organization | [facility] | | [...] | | | | | [place] [address] | | + + + + + | Melissa Daley | ECON | [address] | | | | | [place] [address] | | + + + + + Care Team Providers + +------+ + | Care Asw/Asuw Tactical Air Controller Name | Role | Phone | + [...] + + | 12/18/ | Telephone | [facility] | Rakesh Ruiz MD | Referral | | 2017 | | GASTROENTEROLOGY | [address], [place] | (colonoscopy not | | | | [address] [place] | [address] [place], [place] | needed unless | | | | [address] [place], [place] | [address] | symptoms.) | | | | [address] | | | | | | [phone] | | | +--------+ + + + [...] [place]ARCIA | | | | | | [id number] | | | | | | | | +--------+---------+ + + + documented as of this encounter Visit Diagnoses Not on filedocumented in this encounter"
--- OUTSIDE RECORDS SUMMARY | ~2020-01-23 | XMS | Encounter Summary ---
Demographics + + + | Address | [address] | | | [place] [address] | + + + | Home Phone | | + + + | Preferred Language | Unknown | + + + | Marital Status | | + + + | Jewish Affiliation | 1013 | + + + | Race | Unknown | + + + | Ethnic Group | Unknown | + + + Author + + + | Author | [facility] | | | and [place] | + + + | Organization | [facility] | | | [...] | | | | | [place] [address] | | + + + + + | Melissa Daley | ECON | [address] | | | | | [place] [address] | | + + + + + Care Team Providers + +------+ + | Care School Fundraising Director Name | Role | Phone | + +------+ + PCP | Unavailable | + +------+ + Encounter Details +--------+ + + + + | Date | Type | Department | Care Team | Description | +--------+ + + + + | 05/31/ | Hospital | [facility] | | | | 2000 - | Encounter | MED CTR GENERIC IP | | | | | | CONV DEPT [address] | | | | 06/02/ | | [place], | | | | [address] | | [place] [address] | | | | | | [phone] | | | +--------+ + + + [...] [place]ARCIA | | | | | | [id number] | | | | | | | | +--------+---------+ + + + documented as of this encounter Visit Diagnoses Not on filedocumented in this encounter"
--- OUTSIDE RECORDS SUMMARY | ~2020-01-23 | XMS | Encounter Summary ---
Demographics + + + | Address | [address] | | | [place] [address] | + + + | Home Phone [...] | | | | | [place] [address] | | + + + + + | Melissa Daley | ECON | [address] | | | | | [place] [address] | | + + + + + Care Team Providers + +------+ + | Care Activity Therapy Specialist Name | Role | Phone | + +------+ + | Jona Deal MD | PCP | | + +------+ + Reason for Visit +--------+--------+ + | Reason | Onset | Comments | | | Date | | +--------+--------+ + | Other | 02/08/ | | | | 2012 | | +--------+--------+ + Encounter Details +--------+ + + + + | Date | Type | Department | Care Team | Description | +--------+ + + + + | 07/30/ | Telephone | [facility] [place] | Marci Mcneal, | Other | | 2012 | | PULMONARY [address] | RN | | | | | [place], | | | | | | [place] [address] | | | | | | [phone] | | | +--------+ + + + [...] [place]ARCIA | | | | | | [id number] | | | | | | | | +--------+---------+ + + + documented as of this encounter Visit Diagnoses Not on filedocumented in this encounter"
--- OUTSIDE RECORDS SUMMARY | ~2020-01-23 | XMS | Encounter Summary ---
Demographics + + + | Address | [address] | | | [place] [address] | + + + | Home Phone [...] | Author | [facility] | | | and [place] | + + + | Organization | [facility] [...] | | | | | [place] [address] | | + + + + + | Melissa Daley | ECON | [address] | | | | | [place] [address] | | + + + + + Care Team Providers + +------+ + | Care Retread Operator Name | Role | Phone | [...] [place] | | | | | [place] | | [address] Phone: | | | | | CYSTO/URETER | | [phone] | | | | | O | | Fax: | | | | | W/LITHOTRIPS | | [phone] | | | | | Y &LIZ [...] + + + + | 01/03/ | Anesthesia | [facility] | Jaylan Pérez | | | 2019 | Event | MED CTR OR INTRA OP | DO Drew [address] | | | | | [address] | [address] [facility] | | | | | [place] | [place] [address] | | | | | [address] | [phone] | | | | | [phone] | | | +--------+ + + + + Anesthesia Record + + + + + | Procedure Name | Responsible | Anesthesia Start | Anesthesia Stop Time | | | Anesthesiologist | Time | | + + + + + | CYSTOSCOPY LEFT | Jaylan Pérez, | 01/04/20 1411 | 01/04/20 1551 | | URETEROSCOPY W/ | DO | | | | LASER LITHOTRIPSY, | | | | | LEFT URETERAL STENT | | | | | REPLACEMENT (Left | | | | | Ureter) | | | | + + + + + +----+---+ + + | Da | T | Event | Comment | | te | i | | | | | m | | | | | e | | | +----+---+ + + | 07 | 1 | | | | /1 | 2 | | | | 5/ | 5 | | | | 20 | 0 | | | | 20 | | | | +----+---+ + + | | 1 | An Checkout | Pre-use anesthesia machine/equipment checkout. | | | 4 | | | | | 0 | | | | | 4 | | | +----+---+ + + | | 1 | An Start | Reassessment prior to anesthesia induction/procedure. | | | 4 | | | | | 1 | | | | | 1 | | | +----+---+ + + | | 1 | Antibiotic | | | | 4 | Given | | | | 1 | | | | | 1 | | | +----+---+ + + | | 1 | Preoxygenat | | | | 4 | ed | | | | 1 | | | | | 5 | | | +----+---+ + + | | 1 | An | | | | 4 | Induction | | | | 1 | | | | | 7 | | | +----+---+ + + | | 1 | An | | | | 4 | Intubation | | | | 1 | | | | | 9 | | | +----+---+ + + | | 1 | Railroad | | | | 4 | 43-degrees | | | | 2 | | | | | 4 | | | +----+---+ + + | | 1 | Pre-Procedu | | | | 4 | ral Timeout | | | | 2 | Completed | | | | 6 | | | +----+---+ + + | | 1 | First | | | | 4 | Inc/Proc St | | | | 2 | | | | | 7 | | | +----+---+ + + | | 1 | Quick Note | Heart rate has been irregular throughout the case, will get 12 | | | 5 | | lead in pacu, possibly afib per 3 lead | | | 3 | | | | | 4 | | | +----+---+ + + | | 1 | Railroad off | | | | 5 | | | | | 3 | | | | | 7 | | | +----+---+ + + | | 1 | Breathing | | | | 5 | Spontaneous | | | | 3 | ly | | | | 8 | | | +----+---+ + + | | 1 | Extubation/ | | | | 5 | Airway LDA | | | | 4 | Removal | | | | 7 | | | +----+---+ + + | | 1 | an stop | | | | 5 | data | | | | 4 | | | | | 7 | | | +----+---+ + + | | 1 | An Stop | Patient handed off to recovery nurse. | | | 5 | | | | | 1 | | | +----+---+ + + +------+ | Meds | +------+ + + + | Name | Total | + + + | fentaNYL injection (2 mL) | 100 mcg | + + + | propofol (DIPRIVAN) injection | 130 mg | | (bolus) (20 mL) | | + + + | lidocaine 2% | 100 mg | + + + | ondansetron | 4 mg | + + + | dexamethasone | 5 mg | + + + | phenylephrine (BIORPHEN) | 200 mcg | | injection 0.1 mg/mL (5 mL ampule) | | + + + | cefTRIAXone (ROCEPHIN) 2 g in | 2 g | | sodium chloride 0.9% 50 mL IVPB | | + + + | LR (Infusion) | 1,000 mL | + + + + + [...] +--------+ + + + | Periph | 01/04/20; 1320; Left; Wrist; | 01/04/20 1320 by | 01/04/201924 by Jamel | | eral | [id number] catheter system; | Brandi Eisenberg RN | Gwen Cameron RN | | IV | 20 gauge, 1 1/4 in length; | | | | | distraction, tolerated well; | | | | | 01/04/20; 1924 | | | +--------+ + + + | Airway | Placement Date: 01/04/20; | 01/04/20 1419 by | 01/04/20 1547 by | | | Placement Time: 141 (created via | Jaylan Pérez, | Jaylan Pérez, | | | procedure documentation); | DO | DO | | | Attempts: 1; Airway Type: | | | | | laryngeal mask; Size: 5; Trauma: | | | | | none; Placement Check: exhaled | | | | | CO2 detection device, bilateral | | | | | chest rise, breath sounds equal | | | | | bilaterally; Removal Date: | | | | | 01/04/20; Removal Time: 1547; | | | | | Additional Comments: Smooth IV | | | | | induction. LMA placed and well | | | | | seated. Secured in place. | | | | | Breathing Circuit attached to | | | | | LMA. BSEB/ETCO2 (auscultation | | | | | and capnography) and placement | | | | | confirmed. | | | +--------+ + + [...] encounter OR Notes Anesthesia Postprocedure Evaluation - Jaylan Pérez DO - 01/05/2020 3:01 PM PDTFor matting of this note might be different from the original. ANESTHESIA POSTANESTHESIA EVALUATION Ron Daley 84 y.o. male 1935 [id number] Procedure(s) CYSTOSCOPY LEFT URETEROSCOPY W/ LASER LITHOTRIPSY, LEFT URETERAL STENT REPLAC EMENT (Left Ureter) Cooperates? Yes Mental Status Performs simple tasks. Respiratory Satisfactory - Airway patent (self maintained). Cardiovascular Satisfactory - Blood pressure and heart rate acceptable Temperature Satisfactory Pain Satisfactory N/V Control Satisfactory Hydration Satisfactory - No signs of dehydration Adverse Events ADVERSE EVENTS: No adverse events HR 112's in preop, appeared to be irregular throughout case, 12 lead in pacu shows what rhina ears to be new onset atrial fibrillation, of note, patient off home atenolol for over a week . Discussed afib finding with daughter. Vitals Value Taken Time Temp 36.4 C (97.5 F) 01/04/20 1549 Pulse 84 01/04/20 1837 Resp 18 01/04/20 1821 BP 158/89 01/04/20 1830 Arterial Line BP Arterial Line BP 2 SpO2 97 % 01/04/20 1837 Vitals shown include unvalidated device data. Electronically signed by Jaylan Pérez DO 01/05/2020 3:01 PM PDT [facility] nesthesia Procedure Notes - Jaylan Pérez DO - 01/04/2020 2:25 PM PDTAssociated Order(s): Anesthesia Airway NoteAnesthesia Airway Placement 01/04/2020 2:19 PM Preprocedure check: patient identified, oxygen, airway assessed, patient reassessment prior to induction, airway equipment checked and suction Attempts: 1 Airway type: laryngeal mask Size: 5 Cuffed: cuffed Route, reference point: center of mouth Tube secured with: adhesive tape Trauma: none Tube placement verification: carbon dioxide detection, equal bilateral breath sounds and bi lateral chest rise Performing provider: Jaylan Pérez DO Authorizing provider: Jaylan Pérez DO Comments: Smooth IV induction. LMA placed and well seated. Secured in place. Breathing Circuit attached to LMA. BSEB/ETCO2 (auscultation and capnography) and placement confirmed. Please see intraoperative grid for any additional medication documentation. nesthesia Prepr ocedure Evaluation - Jaylan Pérez DO - 01/04/2020 12:33 PM PDTFormatting of this no te might be different from the original. ANESTHESIA PREANESTHESIA EVALUATION Ron Jacksonhart 84 y.o. male 1935 [id number] Procedure(s): CYSTOSCOPY LEFT URETEROSCOPY W/ LASER LITHOTRIPSY, POSSIBLE LEFT URETERAL CLAY NT REPLACEMENT (Left Ureter) Medical,anesthesia, drug, allergy histories reviewed, NPO status verified. ECG reviewed. Labs reviewed. Review of Systems / Med History Anesthesia History (-) PONV, difficult intubation, malignant hyperthermia . Cardiovascular 11/2019 ecg: "Sinus rhythm with 1st degree AV block Nonspecific T wave abnormality Inferior leads and leads V5-[address] and T wave abnormality leads I and aVL Abnormal ECG No previous ECGs available Confirmed by LILLIAN PEARSON MD ([id number]) on 12/16/2019 5:55:20 AM". Exercise tolerance >4 METS (+) hypertension (+) Dysrhythmias: (-) coronary artery disease. (+) PVD: . Pulmonary Bronchiectasis. (-) Chronic Obstructive Pulmonary Disease.(-) sleep apnea.(-) asthma.Stop Bang Score: 5. Gastrointestinal/Hepatic (+) hypercholesterolemia. (-) acid reflux. Renal Lab Results Component Value Date CREA 0.96 12/26/2019 BUN 16 12/26/2019 NA 140 12/26/2019 K 3.4 12/26/2019 CL 104 12/26/2019 CO2 28 12/26/2019 . (-) end-stage renal disease. Endocrine (+) Diabetes: type 2. Hematology/Other Lab Results Component Value Date WBC 7.0 12/26/2019 HCT 45.8 12/26/2019 MCV 98.3 12/26/2019 LABPLAT 175 04/30/2014 PLT 246 12/26/2019 . Neuromuscular (+) chronic pain. Physical Exam Airway MP II, TM >3 FB, Mouth opening >2 FB. Neck: full ROM, extends >30 degrees. Jaw protrus ion normal. Dental Patient denies loose, chipped or missing teeth (+) age appropriate dentition. CV Rhythm regular. Rate normal. (-) murmur. Pulm Clear to auscultation bilaterally. Neuro grossly normal. 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 Induction: Intravenous. Potential problems: None anticipated. Monitors: Standard ASA monitors. Consent statement: Anesthetic plan, alternatives, risks and benefits discussed with patient. discussed risks t o teeth, nausea, pain, perioperative CV events, respiratory events, sore throat Consenting person understands and agrees to proceed. PARQ. Electronically Signed by: Jaylan Pérez DO ESig date/time: 01/04/2020 12:33 PM PDT documented in th is encounter Miscellaneous Notes Anesthesia Post-op Handoff - Jaylan Pérez DO - 01/04/2020 3:49 PM PDTFormatting o f this note might be different from the original. ANESTHESIA HANDOFF NOTE Ron Daley 84 y.o. male 1935 [id number] CYSTOSCOPY LEFT URETEROSCOPY W/ LASER LITHOTRIPSY, LEFT URETERAL STENT REPLACEMENT (Left Ur eter) HANDOFF NOTE Handoff Protocol Used: post-procedure handoff checklist completed The following were completed during the transfer of care: 1. Identification of patient 2. Identification of responsible practitioner (primary service) 3. Discussion of pertinent medical history 4. Discussion of the surgical/procedure course (procedure, reason for surgery, procedure pe rformed) 5. Intraoperative anesthetic management and issues/concerns 6. Expectations/plans for the early post-procedure period 7. Opportunity for questions and acknowledgement of understanding of report from receiving team Patient Location: Phase I Condition: sedated Airway/O2: other (see comments) Multimodal analgesia: multimodal analgesia used between 6 hours prior to anesthesia start t o PACU discharge Comments: Supplemental Oxygen used as necessary to maintain Oxygen Saturation at or above 9 2% The significant anesthesia concerns and VS in Epic were reviewed with the receiving team. Jaylan Pérez DO 01/04/2020 3:49 PM PDT [facility] documented in this encounter Plan of Treatment [...] | ANE AIRWAY NOTE | Routin | 01/04/2020 | | Results for this | | | e | 2:25 PM | | procedure are in the | | | | PDT | | results section. | + +--------+ + + + documented in this encounter Results Anesthesia Airway Note (01/04/2020 2:25 PM PDT) + + + | Narrative | Performed At | + + + | Jaylan Pérez DO 01/04/2020 2:25 PM Anesthesia Airway | | | Placement 01/04/2020 2:19 PM Preprocedure check: patient | | | identified, oxygen, airway assessed, patient reassessment prior to | | | induction, airway equipment checked and suction Attempts: 1 Airway | | | type: laryngeal mask Size: 5 Cuffed: cuffed Route, reference point: | | | center of mouth Tube secured with: adhesive tape Trauma: none Tube | | | placement verification: carbon dioxide detection, equal bilateral | | | breath sounds and bilateral chest rise Performing provider: Jaylan | | | Drew Pérez DO Authorizing provider: Jaylan Pérez DO | | | Comments: Smooth IV induction. [...] filedocumented in this encounter Administered Medications + +---------+ +------+------+------+ | Medication Order | MAR | Action | Dose | Rate | Site | | | Action | Date | | | | + +---------+ +------+------+------+ | cefTRIAXone (ROCEPHIN) 2 g in | New Bag | 01/04/20 | 2 g | | | | sodium chloride 0.9% 50 mL IVPB | | 20 2:12 | | | | | 2 g, Intravenous, Administer over | | PM PDT | | | | | 30 Minutes, Prior to Incision, | | | | | | | Starting Thu01/04/20 at 1353, For | | | | | | | 1 dose, Activate system and mix | | | | | | | before use., Pre-op, Indications: | | | | | | | Surgical Prophylaxis | | | | | | + +---------+ +------+------+------+ +---+---+ | | | +---+---+ + +-------+ +------+---+---+ | dexamethasone (PF) 10 mg/mL | Given | 01/04/20 | 5 mg | | | | injection Intravenous, PRN, | | 20 2:21 | | | | | Starting Thu01/04/20 at 1421, | | PM PDT | | | | | Anesthesia Intra-op | | | | | | + +-------+ +------+---+---+ +---+---+ | | | +---+---+ + +-------+ +--------+---+---+ | fentaNYL (PF) injection | Given | 01/04/20 | 50 mcg | | | | Intravenous, PRN, Starting Wed | | 20 2:42 | | | | | 01/04/20 at 1430, Anesthesia | | PM PDT | | | | | Intra-op | | | | | | + +-------+ +--------+---+---+ +-------+ +--------+---+---+ | Given | 01/04/20 | 50 mcg | | | | | 20 2:30 | | | | | | PM PDT | | | | +-------+ +--------+---+---+ +---+---+ | | | +---+---+ + +---------+ +---+---+---+ | lactated ringers (LR) infusion | New Bag | 01/04/20 | | | | | Intravenous, CONTINUOUS PRN, | | 20 3:38 | | | | | Starting 01/04/20 at 1400, | | PM PDT | | | | | Anesthesia Intra-op | | | | | | + +---------+ +---+---+---+ +---------+ +---+---+---+ | New Bag | 01/04/20 | | | | | | 20 2:00 | | | | | | PM PDT | | | | +---------+ +---+---+---+ +---+---+ | | | +---+---+ + +-------+ +--------+---+---+ | lidocaine (PF) 2% injection | Given | 01/04/20 | 100 mg | | | | Intravenous, PRN, Starting Wed | | 20 2:17 | | | | | 01/04/20 at 1417, Anesthesia | | PM PDT | | | | | Intra-op | | | | | | + +-------+ +--------+---+---+ +---+---+ | | | +---+---+ + +-------+ +------+---+---+ | ondansetron (ZOFRAN) injection | Given | 01/04/20 | 4 mg | | | | Intravenous, PRN, Starting Wed | | 20 2:21 | | | | | 01/04/20 at 1421, Anesthesia | | PM PDT | | | | | Intra-op | | | | | | + +-------+ +------+---+---+ +---+---+ | | | +---+---+ + +-------+ +---------+---+---+ | phenylephrine (BIORPHEN) 0.1 | Given | 01/04/20 | 100 mcg | | | | mg/mL injection Intravenous, | | 20 2:56 | | | | | PRN, Starting 01/04/20 at | | PM PDT | | | | | 1446, Anesthesia Intra-op | | | | | | + +-------+ +---------+---+---+ +-------+ +---------+---+---+ | Given | 01/04/20 | 100 mcg | | | | | 20 2:46 | | | | | | PM PDT | | | | +-------+ +---------+---+---+ +---+---+ | | | +---+---+ + +-------+ +-------+---+---+ | propofol (DIPRIVAN) injection | Given | 01/04/20 | 30 mg | | | | Intravenous, PRN, Starting Wed | | 20 2:31 | | | | | 01/04/20 at 1417, Anesthesia | | PM PDT | | | | | Intra-op | | | | | | + +-------+ +-------+---+---+ +-------+ +--------+---+---+ | Given | 01/04/20 | 100 mg | | | | | 20 2:17 | | | | | | PM PDT | | | | +-------+ +--------+---+---+ +---+---+ | | | +---+---+ documented in this encounter
--- OUTSIDE RECORDS SUMMARY | ~2020-01-23 | XMS | Encounter Summary ---
Demographics + + + | Address | [address] | | | [place] [address] | + + + | Home Phone [...] [address] | | | | | [place] [address] | | + + + + + | Melissa Daley | ECON | [address] | | | | | [place] [address] | | + + + + + Care Team Providers + +------+ + | Care Securities Settlement Processor Name | Role | Phone | [...] | calculus (Primary | | | | [place], [place] | [place], [place] | Dx) | | | | [address] | [address] | | | | | [phone] | | | +--------+ + + + [...] [place] | | | | | | [address] | | | | | | | | +--------+---------+ + + + documented as of this encounter Visit Diagnoses + + | Diagnosis | + + | Left ureteral calculus - Primary Calculus of ureter | + + documented in this encounter"
--- OUTSIDE RECORDS SUMMARY | ~2020-01-23 | XMS | Encounter Summary ---
Demographics + + + | Address | [address] | | | [place] [address] | + + + | Home Phone | | + + + | Preferred Language | Unknown | + + + | Marital Status | | + + + | Jewish Affiliation | 1013 | + + + | Race | Unknown | + + + | Ethnic Group | Unknown | + + + Author + + + | Author | [facility] | | | and [place] | + + + | Organization | [facility] | | | [...] | | | | | [place] [address] | | + + + + + | Melissa Daley | ECON | [address] | | | | | [place] [address] | | + + + + + Care Team Providers + +------+ + | Care Harness Cutter Name | Role | Phone | [...] | [address], | [place] [address] | | | | | [place] [address] | [phone] | | | | | [phone] | | | +--------+ + + + [...]
--- OUTSIDE RECORDS SUMMARY | ~2020-01-23 | XMS | Encounter Summary ---
Demographics + + + | Address | [address] | | | [place] [address] | + + + | Home Phone [...] | | | | | [place] [address] | | + + + + + | Melissa Daley | ECON | [address] | | | | | [place] [address] | | + + + + + Care Team Providers + +------+ + | Care Wig Comber Name | Role | Phone | + [...] + + | 12/14/ | Hospital | [facility] | HemaKiko, | Ureteral calculus, | | 2019 - | Encounter | MED CTR SURGICAL | [address] | left; | | | | [address] [place] | [place], [place] | Hydronephrosis, | | 12/15/ | | [place] [address] | [id number] | left; Renal colic on | | 2019 | | [phone] | | left side; Acute | | | | | | kidney injury (HCC) | +--------+ + + + + Social [...] voiding. Follow up: Call Dr Garrido's office ([phone]) to set up your follow-up appointment or [...] 1935 Date of Admission: 12/15/2019 Requesting/Referring Physician: [facility] emergency department Chief Complaint: 11 mm proximal [...] from patient and relative(s) (daughter , Katie Velasquez reports that he has had multiple kidney stones in the past. He states that Dr. See duvall has performed stone extraction procedures for him previously. He began having left flank pain on 12/11/2019. His pain has been colicky and intensified to day, prompting a visit to the emergency department at [facility]. While at [facility], CT imaging was performed which demonstrated an [...] file Gets together: Not on file Attends jain service: Not on file Active member of [...] 175 04/30/2014 PLT 169 12/15/2019 Creatinine at [facility] today is reported to be [...] surgical procedure and anesthesia including DVT, PE, ND, CVA, and even . Ron indicates his [...] Electronically signed by: Kiko Garrido MD 12/15/2019 [facility] documented in this en counter Miscellaneous Notes Plan of Care - Carmelita Mesa MSW - 12/16/2019 5:33 PM PDT Problem: Discharge Planning Goal: Patient's discharge needs will be identified in a timely manner Outcome: Met Goal: Patient will be discharged in a safe manner Outcome: Met This shoe parts caser met with Ron to discuss his discharge plan. Ron states that he lives with his spouse Melissa in [place] at the [facility]. He states that he can d o his own ADLs. He doesn't use any A/D. The care home home helps with cleaning, providing m eals. He takes his own meds. He feels he is still independent and Melissa helps with medication management. His daughter is Katie Yusuf. She will be providing transportation back to his Longterm home today. This CM met with Katie prior to Ron being discharged. We dicussed his OBS status. Provide d a brochure and a ALFRED form. Ron signed it and this CM provided him with a copy. Katie feels he is safe to return home today. PCP is Nilo, he uses [facility] in [place]. PLAN: Home with spouse, daughter Katie to transport. lan of Jeanna Berger RN - 12/16/2019 2:13 PM PDTPt adequate for discharge. PIV removed. Educated pt and pt daughter on discharge instruct ions with emphasis on calling for outpatient appointment and s/s to seek medical attention. Transferred to daughter's car via wheelchair. Daughter to drive pt back to living facility i n [place]. All questions answered. 20 3:38 PM PDTPlan of Destiny Ocampo Chaplain - 12/16/2019 10:12 AM PDT Yan newell Chun Daley is a 84 y.o. male who is admitted for ureteral stone left ureteral calculus LEFT URETERAL CALCULUS. Surgical Technologist visit was part of routine rounding. Spiritual Evaluation: The patient was sitting up in his bed on the surgical unit and welcomed a spiritual care vi sit. He was immediately pleasant and engaging. The patient has a long, deep, and positive e xperience in his marriage, work and nondenominational. He lives at an assisted living facility with hi s , whose health is challenged, but he sees her resilience. He has been over 75 years and worked over 65 years. 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 His daughter works here and came to his bedside during our vis it. He is accepting of the need for surgery and has experienced this issue several times, s ome times needing hospitalization, other times not. Spiritual Interventions: The cook fruit attended, offered care, explored patient's life story [...] Daley 84 y.o. 1935 Med. Record Number: [id number] Date of Operation/Procedure: 12/15/2019 Preoperative Diagnosis: 11 mm mid left ureteral calculus Left hydronephrosis Left renal colic Acute Kidney Injury Postoperative Diagnosis: 11 mm mid left ureteral calculus Left hydronephrosis Left renal colic Acute Kidney Injury Surgeon: Kiko Garrido MD Pricing/Signage Team Member(s): None Anesthesia Provider(s): Anesthesiologist: Pietro Tang MD [...] guidance up into the renal pelvis. A 7-Chinese X 26 cm double-J stent was placed [...] Garrido MD, 12/15/2019 7:02 PM PDT [facility] documented in this en counter Plan of Treatment +--------+---------+ + + + | Date | Type | Specialty | Care Team | Description | +--------+---------+ + + + | 01/21/ | Office | Urology | Kiko Garrido, | | | 2020 | Visit | | MD Jorge A HENRIQUEZ | | | | | | [place] | | | | | | [address] | | | | | | | [...] 5.8 | 3.7 - 9.2 mg/dL | [facility] | | | | | | [facility] [address] | [place] | [phone] | | [facility] | | [address] | | | - LABORATORY | | [...] | + + + + + | [facility] | [address] | [place] | [phone] | | [facility] | | [address] | | | - LABORATORY | | [...] (H) | 60 - 106 mg/dL | [facility] | | | | | | [facility] | | | | | | MEDICAL | | | | | | CENTER - | | | | | | LABORATORY | | + + + + + + | BUN | 20 | 9 - 23 mg/dL | [facility] | | | | | | [facility] | | | | | | MEDICAL | | | | | | CENTER - | | | | | | LABORATORY | | + + + + + + | Creatinine | 1.19 | 0.70 - 1.30 | [facility] | | | | | mg/dL | [facility] | | | | | | MEDICAL | | | | | | CENTER - | | | | | | LABORATORY | | + + + + + + | eGFR, | 58 (L)Comment: | >=60 | [facility] | | | non- | GLOMERULAR FILTRATION | mL/min/1.73m2 | [facility] | | | Dutch | RATE,ESTIMATED | | MEDICAL | | | | mL/min/1.93j3Azqv than | | CENTER - | | [...] | | ine Ratio | | | [facility] | | [...] | + + + + + | [facility] | [address] | [place], [place] | [phone] | | [facility] | | [address] | | | - LABORATORY | | [...] | 0.00 | 0.00 - 0.01 | [facility] | | | nRBC | | K/uL [...] [address] | [place] | [phone] | | [facility] | | [address] | | | - LABORATORY | | [...] 20 | 9 - 23 mg/dL | [facility] | | | | | | [facility] | | | | | | MEDICAL | | | | | | CENTER - | | | | | | LABORATORY | | + + + + + + | Creatinine | 1.39 (H) | 0.70 - 1.30 | [facility] | | | | | mg/dL | [facility] | | | | | | MEDICAL | | | | | | CENTER - | | | | | | LABORATORY | | + + + + + + | eGFR, | 48 (L)Comment: | >=60 | [facility] | | | non- | GLOMERULAR FILTRATION | mL/min/1.73m2 | [facility] | | | [place] | RATE,ESTIMATED | | MEDICAL | | | | mL/min/1.97t3Cfjl than | | CENTER - | | [...] + | [facility] | [address] | [place] | [phone] | | [facility] | | [address] | | | - LABORATORY | | [...] | | | | LILLIAN PEARSON MD ([id number]) | | | | | | on [...] ST. | [address] | [place] | [phone] | | [facility] | | [address] | | | - LABORATORY | | | | + + + + + IMAGING REPORT - EXTERNAL SCAN (12/15/2019 12:00 AM PDT) + + + | Narrative | Performed At | + + + | Ordered by an | | | unspecified provider. | | + + + documented in this encounter Visit Diagnoses + + | Diagnosis | + + | Ureteral calculus, left - Primary Calculus of ureter | + + | Hydronephrosis, left Hydronephrosis | + + | Renal colic on left side Renal colic | + + | Acute kidney injury (HCC) Acute kidney failure, unspecified | + + | HTN (hypertension) Unspecified essential hypertension | + + | Gout Gout, unspecified | + + | GERD (gastroesophageal reflux disease) Esophageal reflux | + + | Diabetes mellitus type II, non insulin dependent Type II or unspecified type | | diabetes mellitus without mention of complication, not stated as uncontrolled | + + | 1st degree AV block First degree atrioventricular block | + + documented in this encounter [...] than 38.3 | | | C, Starting [facility] 12/15/19 at 2003, | | | May [...] | | | | First dose on [facility] 12/15/19 at 2100 | | AM PDT [...] | | | | | | Starting [facility] 12/15/19 at 1659, For | | | [...] | | | First dose on Laura 6/25/20 at 2100 | | AM PDT | [...] Starting [facility] 12/15/19 | | | at 2004, First line agent, | | + +---+ | | | + +---+ + +-------+ +------+---+---+ | ondansetron (ZOFRAN) injection | Given | 12/15/19 | 4 mg | | | | 4 mg 4 mg, Intravenous, EVERY 6 | | 20 5:11 | | | | | HOURS PRN, Nausea, Vomiting, | | PM PDT | | | | | Starting [facility] 12/15/19 at 1700 | | | | | | + +-------+ +------+---+---+ + +---+ | | | + +---+ | ondansetron (ZOFRAN) injection | | | 4 mg 4 mg, Intravenous, EVERY 6 | | | HOURS PRN, Nausea, Vomiting, | | | Starting [facility] 12/15/19 at 2003, | | | First [...] | | | | First dose on [facility] 12/15/19 at | | AM PDT | | [...] AM PDT | | | | | [facility] 12/15/19 at 2030 | | | | [...] PDT | | | | | ONCE, Thu12/16/19 at 1000, For 1 | | | [...]
--- OUTSIDE RECORDS SUMMARY | ~2020-01-23 | XMS | Encounter Summary ---
Demographics + + + | Address | [address] | | | [place] [address] | + + + | Home Phone [...] | | | | | [place] [address] | | + + + + + | Melissa Daley | ECON | [address] | | | | | [place] [address] | | + + + + + Care Team Providers + +------+ + | Care Distribution Engineer Name | Role | Phone | [...] | RN | | | | | [place], | | | | | | [place] [address] | | | | | | [phone] | | | +--------+ + + + [...]
--- OUTSIDE RECORDS SUMMARY | ~2020-01-23 | XMS | Encounter Summary ---
Demographics + + + | Address | [address] | | | [place] [address] | + + + | Home Phone [...] | | | | | [place] [address] | | + + + + + | Melissa Daley | ECON | [address] | | | | | [place] [address] | | + + + + + Care Team Providers + +------+ + | Care Digital Cartographic Technician Name | Role | Phone | [...] | | | | | | [place] [address] | | | | | | [phone] | | | +--------+ + + + [...] discontinue portable oxygen. V ronal Hinson in [place] faxed DC of portable Oxygen order. documented [...] [place] | | | | | | [id number] | | | | | | | | +--------+---------+ + + + documented as of this encounter Visit Diagnoses Not on filedocumented in this encounter"
--- OUTSIDE RECORDS SUMMARY | ~2020-01-23 | XMS | Encounter Summary ---
Demographics + + + | Address | [address] | | | [place] [address] | + + + | Home Phone | | + + + | Preferred Language | Unknown | + + + | Marital Status | | + + + | Uatsdin Affiliation | 1013 | + + + | Race | Unknown | + + + | Ethnic Group | Unknown | + + + Author + + + | Author | [facility] | | | and [place] | + + + | Organization | [facility] | | [...] | | | | | [place] [address] | | + + + + + | Melissa Sheldon | ECON | [address] | | | | | [place] [address] | | + + + + + Care Team Providers + +------+ + | Care Diesel Technology Instructor Name | Role | Phone | + [...] + + | 06/01/ | Office | [facility] | Mike, | BOOP (bronchiolitis | | 2011 | Visit | PULMONARY [address] | Carmelita Penny MD | obliterans with | | | | [place], | | organizing | | | | [place] [address] | | pneumonia) ([facility]); | | | | [phone] | | Hypoxemia; Chronic | | | | | | rhinitis; | | | | | | 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 He is wearing it reliably at [facility]. He is coughing almost not at all, [...] he is still desaturating at night, per [facility]'s request. - Pulse oximetry titration today - [...] [place] | | | | | | [id number] | | | | | | | [...] [facility]) | | + + +--------+ + + | Pulse oximetry, | Respiratory | Routin | BOOP | Expected: | | overnight study | Care | e | (bronchiolitis | 06/03/2012, Expires: | | | | | obliterans with | 06/02/2013 | | | | | organizing | | | | | | pneumonia) ([facility]) | | + + +--------+ + + documented as of this encounter Results XR Chest PA and Lateral (06/01/2012 2:14 PM PST) + + | Specimen | + + | | + + + + + | Narrative | Performed At | + + + | [facility] Diagnostic Imaging | [facility] | | Department [address] [facility] | [facility] | | [ rep ct [address]] [ rep [facility] | | st zip] Signed | - IMAGING | | | | | Patient Name: RON SHELDON V Physician: | | | DOROTEO. : 1935 Age: 77 Sex: M Unit #: [id number] | | | Exam Date: 06/01/12 Location: [facility] | | | Report #: [id number] Page: | | | %(RAD)RES..mtdd.print.filter("pg") of %(RAD) | | | RES..mtdd.print.filter("tpg") | | | | | | Accession Number: [id number] | | | CHEST PA AND LATERAL, [...] Transcribed Date/Time: 06/01/2012 15:42 | | | Community Outreach Specialist: <<Signature on File>> | | | | | | Rakesh Guerrero MD06/01/122004 <Electronically signed by Rakesh Whitmore | | | Yolanda TERAN> Rakesh Guerrero MD 06/01/12 1414 | | | Community Outreach Specialist: Cayetano Nsbuezgwyneqi37/11/12 4968 | | | Carmelita Mckeon MD | | + + + + + + + + | Performing | Address | City/State/Zipcode | Phone Number | | Organization | | | | + + + + + | [facility] | [address] | [place] | [phone] | | [facility] | | [address] | | | - IMAGING | | [...]
--- OUTSIDE RECORDS SUMMARY | ~2020-01-23 | XMS | Encounter Summary ---
Demographics + + + | Address | [address] | | | [place] [address] | + + + | Home Phone [...] + + + + + | Katie Yuusf | ECON | [address] | | | | | [place] [address] | | + + + + + | Melissa Sheldon | ECON | [address] | | | | | [place] [address] | | + + + + + Care Team Providers + +------+ + | Care Purchasing Intern Name | Role | Phone | + +------+ + | Jona Deal MD | PCP | | + +------+ + Encounter Details +--------+ + + + + | Date | Type | Department | Care Team | Description | +--------+ + + + + | 07/21/ | Hospital | [facility] | Offenstein, | BOOP (bronchiolitis | | 2012 - | Encounter | MED CTR XRAY [address] | Carmelita Penny MD | obliterans with | | | | [place] | | organizing | | 07/23/ | | [place] [address] | | pneumonia) (HCC) | | 2012 | | [phone] | | | +--------+ + + + [...] | | | | pneumonia) ([facility]) | | | | | | + [...] | | | | pneumonia) ([facility]) | | | | | | + [...] [place] | | | | | | [address] | | | | | | | [...] At | + + + | [facility] Diagnostic Imaging | [place] | | Department [address] [facility] [place] | [facility] | | [ rep ct street1+2] [ rep ct [facility] | | st zip] Signed | - IMAGING | | | | | Patient Name: RON SHELDON V Physician: | | | OFFE. : 1935 Age: 77 Sex: M Unit #: [id number] | | | Exam Date: 07/21/12 Location: [facility] | | | Report #: [id number] Page: | | | %(RAD)RES..mtdd.print.filter("pg") of %(RAD) | | | RES..mtdd.print.filter("tpg") | | | | | | Accession Number: [id number] | | | PA AND LATERAL TWO [...] Transcribed Date/Time: | | | 07/21/2012 11:27 Quality Assurance Supervisor Trim: | | | <<Signature on File>> | | | Kiko | | | Melina Hair MD07/21/121920 <Electronically signed by Kiko Summers | | | Laxmi TERAN> Kiko Hair MD 07/21/12 1121 | | | Quality Assurance Supervisor Trim: [id number] [id number]/30/13 1127 | | | Carmelita Mckeon MD | | + + + + + + + + | Performing | Address | City/State/Zipcode | Phone Number | | Organization | | | | + + + + + | [facility] | [address] 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
--- OUTSIDE RECORDS SUMMARY | ~2020-01-23 | XMS | Encounter Summary ---
Demographics + + + | Address | [address] | | | [place] [address] | + + + | Home Phone [...] | | | | | [place] [address] | | + + + + + | Melissa Daley | ECON | [address] | | | | | [place] [address] | | + + + + + Care Team Providers + +------+ + | Care Ship Pilot Name | Role | Phone | + +------+ + PCP | Unavailable | + +------+ + Encounter Details +--------+ + + + + | Date | Type | Department | Care Team | Description | +--------+ + + + + | 02/24/ | Hospital | [facility] | Rakesh Ruiz MD | | | 1999 | Encounter | MED CTR GENERIC OP | [address], [place] | | | | | CONV DEPT [address] | [address] [place], [place] | | | | | [place], | [address] | | | | | [place] [address] | | | | | | [phone] | | | +--------+ + + + [...] [place] | | | | | | [address] | | | | | | | | +--------+---------+ + + + documented as of this encounter Visit Diagnoses Not on filedocumented in this encounter"
--- OUTSIDE RECORDS SUMMARY | ~2020-01-23 | XMS | Encounter Summary ---
Demographics + + + | Address | [address] | | | [place] [address] | + + + | Home Phone [...] | | | | | [place] [address] | | + + + + + | Melissa Daley | ECON | [address] | | | | | [place] [address] | | + + + + + Care Team Providers + +------+ + | Care Electron Beam Photo Mask Technician Name | Role | Phone | [...] | [facility] | Kiko Garrido, | Procedure not | | 2020 | | MED CTR OR INTRA OP | MD [address] | performed | | | | [address] | [place], [place] | | | | | [place], [place] | [address] | | | | | [address] | | | | | | [phone] | | | +--------+---------+ + + + [...] + documented as of this encounter Discharge Instructions Instructions Kiko Garrido [...] voiding. Follow up: Call Dr Garrido's office ([phone]) to set up your follow-up appointment or [...] 1935 Date of Admission: 12/15/2019 Requesting/Referring Physician: [facility] emergency department Chief Complaint: 11 mm [...] a visit to the emergency department at [facility]. While at [facility], CT imaging was performed which demonstrated [...] nephrolithiasis BOOP (bronchiolitis obliterans with organizing pneumonia) ([facility]) Carpal tunnel syndrome Cataract Colon polyps Cough [...] file Gets together: Not on file Attends anabaptism service: Not on file Active member of [...] 175 04/30/2014 PLT 169 12/15/2019 Creatinine at [facility] today is reported to be [...] discussed with Ron and his daughter Katie is findings on CT imaging. We discussed his [...] surgical procedure and anesthesia including DVT, PE, NY, CVA, and even . Ron indicates his [...] Electronically signed by: Kiko Garrido MD 12/15/2019 [facility] documented in this en counter Miscellaneous Notes Plan of Care - Carmelita Mesa, MANAGEMENT CONSULTING - 12/16/2019 5:33 PM PDT Problem: Discharge Planning Goal: Patient's discharge needs will be identified in a timely manner Outcome: Met Goal: Patient will be discharged in a safe manner Outcome: Met This case management director met with Ron to discuss his discharge plan. Ron states that he lives with his spouse Melissa in [place] at the [facility]. He states that he can d o his own ADLs. He doesn't use any A/D. The senior living home helps with cleaning, providing m eals. He takes his own meds. He feels he is still independent and Melissa helps with medication management. His daughter is Katie Yusuf. She will be providing transportation back to his [facility] home today. This CM met with Katie prior to Ron being discharged. We dicussed his OBS status. Provide d a brochure and a ALFRED form. Ron signed it and this CM provided him with a copy. Katie feels he is safe to return home today. PCP is Nilo, he uses [facility] in [place]. PLAN: Home with spouse, daughter Katie to transport. lan of Chun Warner, Jeanna Summers RN - 12/16/2019 2:13 PM PDTPt adequate for discharge. PIV removed. Educated pt and pt daughter on discharge instruct ions with emphasis on calling for outpatient appointment and s/s to seek medical attention. Transferred to daughter's car via wheelchair. Daughter to drive pt back to living facility i n [place]. All questions answered. 20 3:38 PM PDTPlan Destiny Dugan Chaplain - 12/16/2019 10:12 AM PDT Spiritua l Chun Daley is a 84 y.o. male who is admitted for ureteral stone left ureteral calculus LEFT URETERAL CALCULUS. Puzzle Assembler visit was part of routine rounding. Spiritual Evaluation: The patient was sitting up in his bed on the surgical unit and welcomed a spiritual care vi sit. He was immediately pleasant and engaging. The patient has a long, deep, and positive e xperience in his marriage, work and yarsani. He lives at an assisted living facility with hi s , whose health is challenged, but he sees her resilience. He has been over 75 years and worked over 65 years. 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 His daughter works here and came to his bedside during our vis it. He is accepting of the need for surgery and has experienced this issue several times, s ome times needing hospitalization, other times not. Spiritual Interventions: The crossing guard attended, offered care, explored patient's life story [...] Pt. Name/Age/: Ron Daley 84 y.o. 1935 [facility]. Record Number: [id number] Date of Operation/Procedure: 12/15/2019 Preoperative Diagnosis: 11 mm mid left ureteral calculus Left hydronephrosis Left renal colic Acute Kidney Injury Postoperative Diagnosis: 11 mm mid left ureteral calculus Left hydronephrosis Left renal colic Acute Kidney Injury Surgeon: Kiko Garrido MD Telegraph Service Rater(s): None Anesthesia Provider(s): Anesthesiologist: Pietro Tang MD [...] guidance up into the renal pelvis. A 7-Ukrainian X 26 cm double-J stent was placed [...] Kiko Garrido MD, 12/15/2019 7:02 PM PDT [facility] documented in this en counter [...] [place] | | | | | | [address] | | | | | | | [...] 5.8 | 3.7 - 9.2 mg/dL | [facility] | | | | [...] [address] | [place] | [phone] | | [facility] | | [address] | | | - LABORATORY | | [...] | | | Cells | | | [facility] | | | | | | MEDICAL | | | | | | CENTER - | | | | | | LABORATORY | | + + + + + + | Red Blood | 4.32 | 4.30 - 5.70 | [facility] | | | Cells | | M/uL | [facility] | | | | | | MEDICAL [...] | + + + + + | [facility] | [address] | [place] | [phone] | | [facility] | | [address] | | | - LABORATORY | | [...] | 1.19 | 0.70 - 1.30 | [facility] | [...] mL/min/1.73m2 | [facility] | | | Cuban | RATE,ESTIMATED | | MEDICAL | | | | mL/min/1.95y5Jubh than | | CENTER - | | [...] [address] | [place] | [phone] | | [facility] | | [address] | | | - LABORATORY | | [...] + | [facility] | [address] | [place] | [phone] | | [facility] | | [address] | | | - LABORATORY | | [...] mL/min/1.73m2 | [facility] | | | Cuban | RATE,ESTIMATED | | MEDICAL | | | | mL/min/1.01f2Yrsl than | | CENTER - | | [...] [address] | [place] | [phone] | | [facility] | | [address] | | | - LABORATORY | | [...] | | | | LILLIAN PEARSON MD ([id number]) | | | | | | on [...] NAAT | SARS-CoV-2, RNA | | [facility] | | | (COVID-19) | (COVID-19) [facility] This | | MEDICAL | | | [...] [address] | [place] | [phone] | | [facility] | | [address] | | | - LABORATORY | | [...] filedocumented in this encounter Administered Medications + +--------+---------+------+------+------+ [...] | acetaminophen (TYLENOL) tablet | Given | 06/25/20 | 1,000 mg | | | | [...] than 38.3 | | | C, Starting Laura 12/15/19 at 2004, | | | May use liquid for [...] PDT | | | | | Starting Laura 12/15/19 at 1700 | | | | [...]
--- OUTSIDE RECORDS SUMMARY | ~2020-01-23 | XMS | Encounter Summary ---
Demographics + + + | Address | [address] | | | [place] [address] | + + + | Home Phone [...] | | | | | [place] [address] | | + + + + + | Melissa Daley | ECON | [address] | | | | | [place] [address] | | + + + + + Care Team Providers + +------+ + | Care Pre Wave Assembler Name | Role | Phone | + [...] | RN | | | | | [place], | | | | | | [place] [address] | | | | | | [phone] | | | +--------+ + + + [...] [place] | | | | | | [address] | | | | | | | | +--------+---------+ + + + documented as of this encounter Visit Diagnoses Not on filedocumented in this encounter"
--- OUTSIDE RECORDS SUMMARY | ~2020-01-23 | XMS | Encounter Summary ---
Demographics + + + | Address | [address] | | | [place] [address] | + + + | Home Phone | | + + + | Preferred Language | Unknown | + + + | Marital Status | | + + + | Latter Day Affiliation | 1013 | + + + [...] | | | | | [place] [address] | | + + + + + | Melissa Daley | ECON | [address] | | | | | [place] [address] | | + + + + + Care Team Providers + +------+ + | Care Kier Hand Name | Role | Phone | + +------+ + | Bunny Corcoran | PCP | | | MD | | | + +------+ + Reason for Visit Evaluate & Treat (Routine) +--------+--------+ + + + + | Status | Reason | Specialty | Diagnoses / | Referred By | Referred To | | | | | Procedures | Contact | Contact | +--------+--------+ + + + + | Closed | | Neurology | Diagnoses | Nilo, | Rohini, | | | | | Vertigo of | Bunny | Erica Cortes, | | | | | jesse | MD Drew | [address] | | | | | origin | [address] | [place], | | | | | | [address] | [place] | | | | | | [place], | [facility] [place] | | | | | | [place] | [address] Phone: | | | | | | [address] | [phone] | | | | | | Phone: | Fax: | | | | | | [phone] | [phone] | | | | | | Fax: | | | | | | | [phone] | | +--------+--------+ + + + + Encounter Details +--------+---------+ + + + | Date | Type | Department | Care Team | Description | +--------+---------+ + + + | 01/12/ | Office | [facility] | Erica Nova | Sleepiness (Primary | | 2020 | Visit | [facility] | MD Sebastian [address] | Dx) | | | | CLINIC [address] | [address]ER | | | | | DR [address], | [place] [address] | | | | | [place] [address] | [phone] | | | | | [phone] | | | +--------+---------+ + + + [...] + documented as of this encounter Progress Erica Jacobs MD - 2020 10:15 AM PDTAppointment cancelled documented in this encounter Plan of Treatment +--------+---------+ + + + | Date | Type | Specialty | Care Team | Description | +--------+---------+ + + + | 01/21/ | Office | Urology | Kiko Garrido, | | | 2020 | Visit | | MD [address] | | | | | | [place] | | | | | | [address] | | | | | | | | +--------+---------+ + + + documented as of this encounter Visit Diagnoses + + | Diagnosis | + + | Sleepiness - Primary Other alteration of consciousness | + + documented in this encounter"
--- OUTSIDE RECORDS SUMMARY | ~2020-01-23 | XMS | Encounter Summary ---
Demographics + + + | Address | [address] | | | [place] [address] | + + + | Home Phone [...] | | | | | [place] [address] | | + + + + + | Melissa Daley | ECON | [address] | | | | | [place] [address] | | + + + + + Care Team Providers + +------+ + | Care Vp Hr Diversity Name | Role | Phone | + +------+ + PCP | Unavailable | + +------+ + Encounter Details +--------+ + + + + | Date | Type | Department | Care Team | Description | +--------+ + + + + | 10/10/ | Hospital | [facility] | Rakesh Ruiz MD | | | 2008 | Encounter | MED CTR GENERIC OP | [address], [place] | | | | | CONV DEPT [address] | [address] [place], [place] | | | | | [place], | [address] | | | | | [place] [address] | | | | | | [phone] | | | +--------+ + + + [...] [place] | | | | | | [address] | | | | | | | | +--------+---------+ + + + documented as of this encounter Visit Diagnoses Not on filedocumented in this encounter"
--- OUTSIDE RECORDS SUMMARY | ~2020-01-23 | XMS | Encounter Summary ---
Demographics + + + | Address | [address] | | | [place] [address] | + + + | Home Phone | | + + + | Preferred Language | Unknown | + + + | Marital Status | | + + + | Mandaeism Affiliation | 1013 | + + + | Race | Unknown | + + + | Ethnic Group | Unknown | + + + Author + + + | Author | [facility] | | | and [place] | + + + | Organization | [facility] | | | and [...] | | | | | [place] [address] | | + + + + + | Melissa Sheldon | ECON | [address] | | | | | [place] [address] | | + + + + + Care Team Providers + +------+ + | Care Diesel Engine Mechanic Apprentice Name | Role | Phone | + +------+ + | Jona Deal MD | PCP | | + +------+ + Encounter Details +--------+ + + + + | Date | Type | Department | Care Team | Description | +--------+ + + + + | 06/01/ | Hospital | [facility] | Offenstein, | BOOP (bronchiolitis | | 2011 - | Encounter | MED CTR GENERIC OP | Carmelita Penny MD | obliterans with | | | | CONV DEPT [address] | | organizing | | 06/03/ | | [place], | | pneumonia) (HCC) | | 2011 | | [place] [address] | | | | | | [phone] | | | +--------+ + + + [...] + + + +---------+ + + | docusate sodium | Take 100 mg by mouth | | 0 | | | | (COLACE) 100 mg | Twice daily as | | | | 3 | | capsule | needed. | | | | | [...] + + +---------+ + + | insulin regular | Inject under the | | 0 | | | | (HUMULIN R, NOVOLIN | skin 3 times daily | | | | 3 | | R) 100 units/mL | (before meals). | | | | | | injection | Sliding scale | | | | | + + [...] | | | | | pneumonia) ([facility]) | | | | | | + + + +---------+ + + | omeprazole | Take 20 mg by mouth | | 0 | | | | (PRILOSEC) 20 mg | 2 times daily. | | | | 3 | | capsule | | | | | | + + + +---------+ + + | predniSONE | Take 4 tablets by | 120 | 1 | 06/01/20 | | | (DELTASONE) 10 mg | mouth Daily. | tablet | | 12 | 3 | | tabletIndications: | | | | | | | BOOP (bronchiolitis | | | | | | | obliterans with | | | | | | | organizing | | | | | | | pneumonia) ([facility]) | | | | | | + [...] [place] | | | | | | [address] | | | | | | | | +--------+---------+ + + + documented as of this encounter Procedures + +--------+ + + + | Procedure Name | Priori | Date/Time | Associated Diagnosis | Comments | | | ty | | | | + +--------+ + + + | XR CHEST PA AND | Routin | 06/01/2012 | BOOP | Results for this | | LATERAL | e | 2:14 PM | (bronchiolitis | procedure are in the | | | | PST | obliterans with | results section. | | | | | organizing | | | | | | pneumonia) ([facility]) | | + +--------+ + + + documented in this encounter Results XR Chest PA and Lateral (06/01/2012 2:14 PM PST) + + | Specimen | + + | | + + + + + | Narrative | Performed At | + + + | [facility] | [place] | | Department [address] [place], [place] [address] | [facility] | | [ rep ct street[address]] [ rep ct [facility] | | st zip] Signed | - IMAGING | | | | | Patient Name: RON SHELDON V Physician: | | | DOROTEO. : 1935 Age: 77 Sex: M Unit #: [id number] | | | Exam Date: 06/01/12 Location: [facility] | | | Report #: [id number] Page: | | | %(RAD)RES..mtdd.print.filter("pg") of %(RAD) | | | RES..mtdd.print.filter("tpg") | | | | | | Accession Number: [id number] | | | CHEST PA AND LATERAL, [...] Transcribed Date/Time: 06/01/2012 15:42 | | | Raw Hide Trimmer: <<Signature on File>> | | | | | | Rakesh Guerrero MD06/01/122004 <Electronically signed by Rakesh Whitmore | | | Yolanda TERAN> Rakesh Guerrero MD 06/01/12 1414 | | | Raw Hide Trimmer: Cayetano Mewvtivrbpzhs34/11/12 8046 | | | Carmelita Mckeon MD | | + + + + + + + + | Performing | Address | City/State/Zipcode | Phone Number | | Organization | | | | + + + + + | [facility] | [address] 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
--- OUTSIDE RECORDS SUMMARY | ~2020-01-23 | XMS | Encounter Summary ---
Demographics + + + | Address | [address] | | | [place] [address] | + + + | Home Phone | | + + + | Preferred Language | Unknown | + + + | Marital Status | | + + + | Orthodoxy Affiliation | 1013 | + + + [...] | | | | | [place] [address] | | + + + + + | Melissa Daley | ECON | [address] | | | | | [place] [address] | | + + + + + Care Team Providers + +------+ + | Care Revenue Manager Name | Role | Phone | [...] | calculus (Primary | | | | [place], [place] | [place], [place] | Dx) | | | | [address] | [address] | | | | | [phone] | | | +--------+ + + + [...] [place] | | | | | | [address] | | | | | | | [...] Procedure Note | + + | Dante, [id number] - 01/11/2020 9:32 AM PDT XR ABDOMEN [...]
--- OUTSIDE RECORDS SUMMARY | ~2020-01-23 | XMS | Encounter Summary ---
Demographics + + + | Address | [address] | | | [place] [address] | + + + | Home Phone [...] | | | | | [place] [address] | | + + + + + | Melissa Sheldon | ECON | [address] | | | | | [place] [address] | | + + + + + Care Team Providers + +------+ + | Care Clay Roaster Name | Role | Phone | + [...] + + | 06/23/ | Office | [facility] | Mike, | BOOP (bronchiolitis | | 2012 | Visit | PULMONARY [address] | Carmelita Penny MD | obliterans with | | | | [place], | | organizing | | | | [place] [address] | | pneumonia) (HCC) | | | | [phone] | | (Primary Dx); | | | [...] breath sounds are diminished bilaterally, no wheezes, soft crab shedder ckles or rhonchi Chest Wall: No deformity [...] [place] | | | | | | [address] | | | | | | | | +--------+---------+ + + + documented as of this encounter Results XR Chest PA and Lateral (07/21/2012 11:21 AM PST) + + | Specimen | + + | | + + + + + | Narrative | Performed At | + + + | [facility] | [place] | | Department [address] [place] | [facility] | | [ rep ct [address]] [ rep ct [facility] | | st zip] Signed | - IMAGING | | | | | Patient Name: RON SHELDON V Physician: | | | E. : 1935 Age: 77 Sex: M Unit #: [id number] | | | Exam Date: 07/21/12 [place] [facility] | | | Report #: [id number] Page: | | | %(RAD)RES..mtdd.print.filter("pg") of %(RAD) | | | RES..mtdd.print.filter("tpg") | | | | | | Accession Number: [id number] | | | PA AND LATERAL TWO [...] Transcribed Date/Time: | | | 07/21/2012 11:27 Keeler Polygraph Operator: | | | <<Signature on File>> | | | Kiko | | | Melina Hair MD07/21/121920 <Electronically signed by Kiko Summers | | | Laxmi TERAN> Kiko Hair MD 07/21/121 | | | Keeler Polygraph Operator: [employer] Fabwokkxyyagv03/30/13 1127 | | | Carmelita Mckeon MD | | + + + + + + + + | Performing | Address | City/State/Zipcode | Phone Number | | Organization | | | | + + + + + | [facility] | [address] | [place], [place] | [phone] | | [facility] | | [address] | | | - IMAGING | | | | + + + + + XR Chest PA and Lateral (06/23/2012 1:39 PM PST) + + | Specimen | + + | | + + + + + | Narrative | Performed At | + + + | [facility] | [place] | | Department [address] [place] | [facility] | | [ rep ct [address]] [ rep ct [facility] | | st zip] Signed | - IMAGING | | | | | Patient Name: RON SHELDON V Physician: | | | OFFE. : 1935 Age: 77 Sex: M Unit #: [id number] | | | Exam Date: 06/23/12 [place] [facility] | | | Report #: [id number] Page: | | | %(RAD)RES..mtdd.print.filter("pg") of %(RAD) | | | RES..mtdd.print.filter("tpg") | | | | | | Accession Number: [id number] | | | TWO-VIEW CHEST CLINICAL HISTORY: [...] Transcribed Date/Time: 06/23/2012 13:44 | | | Keeler Polygraph Operator: <<Signature on File>> | | | | | | Tan Keenan MD06/23/12 1729 <Electronically signed by | | | Tan Keenan MD> Tan Keenan MD 06/23/12 | | | 1339 Keeler Polygraph Operator: [employer] Womqjhzfcgqev75/02/13 1344 | | | Carmelita Mckeon MD | | + + + + + + + + | Performing | Address | City/State/Zipcode | Phone Number | | Organization | | | | + + + + + | [facility] | [address] | [place] | [phone] | | [facility] | | [address] | | | - IMAGING | | [...]
--- OUTSIDE RECORDS SUMMARY | ~2020-01-23 | XMS | Encounter Summary ---
Demographics + + + | Address | [address] | | | [place] [address] | + + + | Home Phone [...] | | | | | [place] [address] | | + + + + + | Melissa Sheldon | ECON | [address] | | | | | [place] [address] | | + + + + + Care Team Providers + +------+ + | Care Medical Support Specialist Name | Role | Phone | [...] + + | 08/16/ | Office | [facility] | Mike, | BOVASILIY (bronchiolitis | | 2013 | Visit | PULMONARY [address] | Carmelita Penny MD | obliterans with | | | | [place], | | organizing | | | | [place] [address] | | pneumonia) ([facility]) | | | | [phone] | | (Primary Dx); | | | [...] [place] | | | | | | [address] | | | | | | | | +--------+---------+ + + + documented as of this encounter Results XR Chest PA and Lateral (09/29/2012 12:27 PM PDT) + + | Specimen | + + | | + + + + + | Narrative | Performed At | + + + | [facility] | [place] | | Department [address] [facility] | [facility] | | [ rep ct street1+2] [ rep [facility] | | st zip] Signed | - IMAGING | | | | | Patient Name: RON SHELDON V Physician: | | | DOROTEOAna Luisa : 1935 Age: 77 Sex: M Unit #: [id number] | | | Exam Date: 09/29/12 Location: [facility] | | | Report #: [id number] Page: | | | %(RAD)RES..mtdd.print.filter("pg") of %(RAD) | | | RES..mtdd.print.filter("tpg") | | | | | | Accession Number: [id number] | | | CHEST, PA AND LATERAL, [...] | | | Transcribed Date/Time: 09/29/2012 12:33 Casing Cooker: | | | MR.BS <<Signature on File>> | | | Mart | | | MD [place]09/29/12 1551 <Electronically signed by aMrt Boyle MD> | | | Mart Boyle MD 09/29/12 1227 Casing Cooker: [employer] | | | Pblkkogfzblfk13/10/13 1233 Carmelita Mckeon MD | | | | | + + + + + + + + | Performing | Address | City/State/Zipcode | Phone Number | | Organization | | | | + + + + + | [facility] | [address] | [place] | [phone] | | [facility] | | [address] | | | - IMAGING | | [...]
--- OUTSIDE RECORDS SUMMARY | ~2020-01-23 | XMS | Encounter Summary ---
Demographics + + + | Address | [address] | | | [place] [address] | + + + | Home Phone [...] | | | | | [place] [address] | | + + + + + | Melissa Daley | ECON | [address] | | | | | [place] [address] | | + + + + + Care Team Providers + +------+ + | Care Child Daycare Worker Name | Role | Phone | [...] | | | | | | [place] [address] | | | | | | [phone] | | | +--------+ + + + [...] - 07/14/2012 9:30 AM PSTPatient called. re ached. Informed that overnight pulse oximetry to be [...]
--- OUTSIDE RECORDS SUMMARY | ~2020-01-23 | XMS | Encounter Summary ---
Demographics + + + | Address | [address] | | | [place] [address] | + + + | Home Phone [...] | | | | | [place] [address] | | + + + + + | Melissa Daley | ECON | [address] | | | | | [place] [address] | | + + + + + Care Team Providers + +------+ + | Care Manager Regional Sales Name | Role | Phone | + [...] | alveolar and | | | | [place], | | parietoalveolar | | | | [place] [address] | | pneumonopathies | | | | [phone] | | (HCC) (Primary Dx); | | [...] [place] | | | | | | [address] | | | | | | | [...] | | | | exacerbation ([facility]) | | | | | | Hypoxemia [...]
--- OUTSIDE RECORDS SUMMARY | ~2020-01-23 | XMS | Encounter Summary ---
Demographics + + + | Address | [address] | | | [place] [address] | + + + | Home Phone [...] + | Author | [facility] | | | and [place] | + + + | Organization | [facility] | | | and [...] | | | | | [place] [address] | | + + + + + | Melissa Daley | ECON | [address] | | | | | [place] [address] | | + + + + + Care Team Providers + +------+ + | Care Valve Assembler Name | Role | Phone | [...] + | 09/25/ | Telephone | [facility] | Erica Nova | Appointment | | 2020 | | [facility] | MD Sebastian [address] | | | | | CLINIC [address] | CLAY SHAFER | | | | | DR [address]SON [address], | [place] [address] | | | | | [place] [address] | [phone] | | | | | [phone] | | | +--------+ + + + [...]
--- OUTSIDE RECORDS SUMMARY | ~2020-01-23 | XMS | Encounter Summary ---
Demographics + + + | Address | [address] | | | [place] [address] | + + + | Home Phone [...] | | | | | [place] [address] | | + + + + + | Melissa Daley | ECON | [address] | | | | | [place] [address] | | + + + + + Care Team Providers + +------+ + | Care Live Truck Technician Name | Role | Phone | + +------+ + | Bunny Corcoran | PCP | | | MD | | | + +------+ + Encounter Details +--------+ + + + + | Date | Type | Department | Care Team | Description | +--------+ + + + + | 12/20/ | Orders Only | [facility] | Renae Rayo, | | | 2019 | | [address] | JIG BOX OPERATOR | | | | | [place] | | | | | | [address] | | | | | | [phone] | | | +--------+ + + + [...] [place] | | | | | | [id number] | | | | | | | | +--------+---------+ + + + documented as of this encounter Visit Diagnoses Not on filedocumented in this encounter"
--- OUTSIDE RECORDS SUMMARY | ~2020-01-23 | XMS | Encounter Summary ---
Demographics + + + | Address | [address] | | | [place] [address] | + + + | Home Phone [...] | | | | | [place] [address] | | + + + + + | Melissa Daley | ECON | [address] | | | | | [place] [address] | | + + + + + Care Team Providers + +------+ + | Care Visual Merchandising Specialist Name | Role | Phone | + +------+ + | Bunny Corcoran | PCP | | | MD | | | + +------+ + Reason for Visit + + + | Reason | Comments | + + + | Nephrolithiasis | | + + + Encounter Details +--------+---------+ + + + | Date | Type | Department | Care Team | Description | +--------+---------+ + + + | 12/25/ | Office | [facility] | Kiko Garrido, | Left ureteral | | 2020 | Visit | [address] | MD [address] | calculus (Primary | | | | [place] | [place] | Dx); Stage 3 chronic | | | | [address] | [address] | kidney disease | | | | [phone] | | ([facility]); Pre-operative | | | | | | clearance | +--------+---------+ + + + Social History [...] + | Blood Pressure | 142/80 | 12/26/2019 12:51 PM | | | | | PDT | | + + + + + | Pulse | 68 | 12/26/2019 12:51 PM | | | | | PDT | | + + + + + | Temperature | - | - | | + + + + + | Respiratory Rate | 24 | 12/26/2019 12:51 PM | | | | | PDT | | + + + + + | Oxygen Saturation | - | - | | + + + + + | Inhaled Oxygen | - | - | | | Concentration | | | | + + + + + | Weight | 109.3 kg (240 lb | 12/26/2019 12:51 PM | | | | 15.4 oz) | PDT | | + + + + + | Height | 177.8 cm (5' 10") | 12/26/2019 12:51 PM | | | | | PDT | | + + + + + | Body Mass Index | 34.57 | 12/26/2019 12:51 PM | | | | | PDT | | + + + + + documented in this encounter Patient Instructions Patient Instructions Mali Garcia RN - 12/26/2019 1:00 PM PDTFormatting of this not e might be different from the original. Preoperative Instructions Your surgery with Dr. Kiko Garrido has been scheduled for January 04, 2020 at 1:30 PM at [facility]. Please report to the [facility] Center no later than 12:00 PM. REMEMBER: NOTHING TO EAT OR DRINK AFTER MIDNIGHT January 03, 2020 except you may take your ATENOLOL AND AMLODIPINE with a sip of water. NO ASPIRIN OR ASPIRIN PRODUCTS ONE WEEK PRIOR TO SURGERY. Tylenol and Advil are OK. You will need to be tested for COVID-19 prior to your surgery. This will be done at the Dr mccray testing site on the [facility] (the [facility]) at [address] [place] [address] in [place]. You will need to go and do this on Thursday, December 31, 2019 at 7:00 AM. Once you have had the testing done, you will need to qu arantine yourself at home until after your surgery (see Home quarantine guidance sheet). You will also need to get the following tests done prior to surgery: CBC, BMP, UA. Please call the Pre-operative Clinic at [phone] to schedule that testing. YOU WILL NEED TO BRING A REFRESH TECHNICIAN WITH YOU THE DAY OF SURGERY. Call us at [phone] with any questions. [x] Pain management booklet provided to patient. Treating Kidney Stones: Ureteroscopic Stone Removal Ureteroscopic stone removal may be done before, after, or instead of other treatments. If y ou need this procedure, your healthcare provider will discuss its risks and possible complic ations. You will be told how to prepare. And you will be told about anesthesia that will tyrone p you pain-free during treatment. A ureteroscope lets your doctor see your stone before removing it. Removing the stone through the ureter Ureteroscopic stone removal extracts a small stone in your ureter without an incision. Your doctor places a viewing tube (ureteroscope) in your ureter. A wire basket inserted through the tube removes the stone. Sometimes, a laser or a mechanical device is used to break up th e stone. A soft tube may be left in your ureter briefly to drain urine. The stone may be fragmented. The stone is then withdrawn or passed. Your recovery This is an outpatient or overnight procedure. For a few days after surgery, you may feel so me pain when you urinate. Or you may need to urinate more often, or have bloody urine. You m ay have a ureteral stent. This is a soft tube that prevents blockage from swelling after the procedure. The stent is removed when the swelling goes down, often within days. Follow up a s instructed to check for any new stones. When to call your healthcare provider Call your healthcare provider right away if: You have sudden pain or flank pain You have a fever over 100.4F (38C) You have nausea that lasts for days You have heavy bleeding when you urinate You have heavy bleeding through your drainage tube You have swelling or redness around your incision [employer] last reviewed this educational content on 07/23/201619998269-0449 [employer]. [address] [place] [address]. All righ ts reserved. This information is not intended as a substitute for professional medical care. Always follow your healthcare professional's instructions. documented in this encounter Progress Notes Kiko Garrido MD - 12/26/2019 1:00 PM PDTFormatting of this note might be different fro m the original. HPI Ron Daley is a 84 y.o. male referred by Bunny Corcoran MD Today, 12/26/2019, Ron presents for a follow up for nephrolithiasis. Ron was transferred from [facility] on 12/15/2019 with an obstructive proxima l [...] recently seen in the emergency department at [facility] on 12/20/2019 with compla ints of [...] today to the office by his daughter Katie. I spent in excess of 25 minutes [...] x2 TONSILLECTOMY TOTAL KNEE ARTHROPLASTY Right 1996 Outpatient Encounter Medications as of 12/26/2019 Medication [...] 12/26/2019 KUB 12/22/2019: CT imaging 12/20/2019 at [facility] demonstrates "moderate left hydronephrosis and prox imal [...] surgical procedure and anesthesia including DVT, PE, HI, CVA, and even . Ron indicates his understanding, and indicates a desire to proceed as outlined. No guara ntees are given or implied. A surgical date is chosen. Ron is given appropriate written and verbal preoperative instr uctions. Elements of kidney stone prevention diet are reinforced. Ron will continue his regular and customary care and followup with his primary care yuko bobby. I asked Ron to notify me immediately if he should experience any difficulties with voidin g or if he has any questions or concerns or any problems whatsoever. This document was generated in part using [employer]. Sometimes wrong word or sound-alike sub stitutions [...] | | | | | [place] | | | | | | [address] | | | | | | | | +--------+---------+ + + + documented as of this encounter Procedures + +--------+ + + + | Procedure Name | Priori | Date/Time | Associated Diagnosis | Comments | | | ty | | | | + +--------+ + + + | IMAGING REPORT - | | 12/20/2019 | | Results for this [...] + + | Performed at: 01 - [facility] [place] [address] [place] | REFERENCE LAB | | [id number] Tile And Marble Installer: Dat Lan MD, Phone: [phone] | [facility] | + + + + + + + + | Performing | Address | City/State/Zipcode | Phone Number | | Organization | | | | + + + + + | REFERENCE LAB | [address] | [place], [place] | [phone] | | [facility] | [facility] | [address] | | + + + + + Urinalysis, Reflex Microscopic and/or Culture (12/26/2019 2:05 PM PDT) + + + + + + | Component | Value | Ref Range | Performed | Pathologist | | | | | At | Signature | + + + + + + | Color, | Yellow | Light Yellow, | [facility] | | | Urine | | Yellow, Straw | [facility] | | | | | | MEDICAL | | | | | | CENTER - | | | | | | LABORATORY | | + + + + + + | Clarity, | Clear | Clear | [facility] | | | Urine | | | [facility] | | | | | | MEDICAL | | | | | | CENTER - | | | | | | LABORATORY | | + + + + + + | pH, Urine | 5.0 | 5.0 - 8.0 | [facility] | | | | | | [facility] | | | | | | MEDICAL | | | | | | CENTER - | | | | | | LABORATORY | | + + + + + + | Specific | 1.015 | 1.001 - 1.030 | [facility] | | | [place], | | | [facility] | | | Urine | | | MEDICAL | | | | | | CENTER - | | | | | | LABORATORY | | + + + + + + | Protein, | 100 mg/dL (A) | Negative | [facility] | | | Urine | | | [facility] | | | | | | MEDICAL | | | | | | CENTER - | | | | | | LABORATORY | | + + + + + + | Blood, | Negative | Negative | [facility] | | | Urine | | | [facility] | | | | | | MEDICAL | | | | | | CENTER - | | | | | | LABORATORY | | + + + + + + | Glucose, | Negative | Negative | [facility] | | | Urine | | | [facility] | | | | | | MEDICAL | | | | | | CENTER - | | | | | | LABORATORY | | + + + + + + | Ketones, | Negative | Negative | [facility] | | | Urine | | | [facility] | | | | | | MEDICAL | | | | | | CENTER - | | | | | | LABORATORY | | + + + + + + | Bilirubin, | Negative | Negative | [facility] | | | Urine | | | [facility] | | | | | | MEDICAL | | | | | | CENTER - | | | | | | LABORATORY | | + + + + + + | Nitrite, | Negative | Negative | [facility] | | | Urine | | | [facility] | | | | | | MEDICAL | | | | | | CENTER - | | | | | | LABORATORY | | + + + + + + | Leukocyte | Trace (A) | Negative | [facility] | | | Esterase, | | | [facility] | | | Urine | | | MEDICAL | | | | | | CENTER - | | | | | | LABORATORY | | + + + + + + | Urobilinoge | Negative | 0.2 mg/dL, 1.0 | [facility] | | | n, Urine | | mg/dL, Negative | [facility] | | | | | | MEDICAL | | | | | | CENTER - | | | | | | LABORATORY | | + + + + + + | White Blood | 10-15 (A) | 0 - 2 /HPF | [facility] | | | Cells, | | | [facility] | | | Urine | | | MEDICAL | | | | | | CENTER - | | | | | | LABORATORY | | + + + + + + | Red Blood | 10-15 (A) | 0 - 2 /HPF | [facility] | | | Cells, | | | [facility] | | | Urine | | | MEDICAL | | | | | | CENTER - | | | | | | LABORATORY | | + + + + + + | Squamous | 2-5 (A) | 0 - 2 /LPF | [facility] | | | Epithelial | | | [facility] | | | Cells, | | | MEDICAL | | | Urine | | | CENTER - | | | | | | LABORATORY | | + + + + + + | Bacteria, | Negative | Negative /HPF | [facility] | | | Urine | | | [facility] | | | | | | MEDICAL | | | | | | CENTER - | | | | | | LABORATORY | | + + + + + + | Mucus, | Present (A) | Negative /LPF | [facility] | | | Urine | | | [facility] | | | | | | MEDICAL | | | | | | CENTER - | | | | | | LABORATORY | | + + + + + + | Urine | Urine Culture Not | | [facility] | | | Comment | Indicated | | [facility] | | | | | | MEDICAL | | | | | | CENTER - | | | | | | LABORATORY | | + + + + + + + + | Specimen | + + | Urine - Urine | | specimen obtained by | | clean catch | | procedure (specimen) | + + + + + + + | Performing | Address | City/State/Zipcode | Phone Number | | Organization | | | | + + + + + | [facility] | [address] | [place] | [phone] | | [facility] | | [address] | | | - LABORATORY | | | | + + + + + Basic Metabolic Panel (12/26/2019 2:05 PM PDT) + + + + + [...] + + + + | K | 3.4 | 3.4 - 5.1 | [facility] | | | | | mmol/L | [facility] | | | | | | MEDICAL | | | | | | CENTER - | | | | | | LABORATORY | | + + + + + + | Cl | 104 | 98 - 107 mmol/L | [facility] | | | | | | [facility] | | | | | | MEDICAL | | | | | | CENTER - | | | | | | LABORATORY | | + + + + + + | CO2 | 28 | 20 - 31 mmol/L | [facility] | | | | | | [facility] | | | | | | MEDICAL | | | | | | CENTER - | | | | | | LABORATORY | | + + + + + + | Anion Gap | 8 | 3 - 16 mmol/L | [facility] | | | | | | [facility] | | | | | | MEDICAL | | | | | | CENTER - | | | | | | LABORATORY | | + + + + + + | Glucose | 140 (H) | 60 - 106 mg/dL | [facility] | | | | | | [facility] | | | | | | MEDICAL | | | | | | CENTER - | | | | | | LABORATORY | | + + + + + + | BUN | 16 | 9 - 23 mg/dL | [facility] | | | | | | [facility] | | | | | | MEDICAL | | | | | | CENTER - | | | | | | LABORATORY | | + + + + + + | Creatinine | 0.96 | 0.70 - 1.30 | [facility] | | | | | mg/dL | [facility] | | | | | | MEDICAL | | | | | | CENTER - | | | | | | LABORATORY | | + + + + + + | eGFR, | >60Comment: GLOMERULAR | >=60 | [facility] | | | non- | FILTRATION | mL/min/1.73m2 | [facility] | | | [place] | RATE,ESTIMATED | | MEDICAL | | | | mL/min/1.35u3Fmoj than | | CENTER - | | [...] + + + + | Calcium | 9.0 | 8.7 - 10.4 | [facility] | | | | | mg/dL | [facility] | | | | | | MEDICAL | | | | | | CENTER - | | | | | | LABORATORY | | + + + + + + | BUN/Creatin | 16.7 | | [facility] | | | ine Ratio | | | [facility] | | | [...] + | [facility] | [address] | [place] | [phone] | | [facility] | | [address] | | | - LABORATORY | | | | + + + + + CBC with Differential (12/26/2019 2:05 PM PDT) + + + + + [...] + + + | Red Blood | 4.66 | 4.30 - 5.70 | [facility] | [...] + + + + | Hematocrit | 45.8 | 40.0 - 51.0 % | [facility] | | | | | | [facility] | | | | | | MEDICAL | | | | | | CENTER - | | | | | | LABORATORY | | + + + + + + | MCV | 98.3 | 83.0 - 101.0 fL | [facility] | | | | | | [facility] | | | [facility] | | MEDICAL | | | | | | CENTER - | | | | | | LABORATORY | | + + + + + + | MCH | 32.8 | 28.0 - 35.0 pg | [facility] | | | | | | [facility] | | | | | | MEDICAL | | | | | | CENTER - | | | | | | LABORATORY | | + + + + + + | MCHC | 33.4 | 32.0 - 36.0 | [facility] | [...] + + + + | RDW-SD | 47.9 (H) | 35.1 - 46.3 fL | [facility] | | | | | | [facility] | | | | | | MEDICAL | | | | | | CENTER - | | | | | | LABORATORY | | + + + + + + | Platelet | 246 | 140 - 440 K/uL | [facility] | | | Count | | | [facility] | | | | | | MEDICAL | | | | | | CENTER - | | | | | | LABORATORY | | + + + + + + | MPV | 10.8 | 6.5 - 12.4 fL | [facility] | | | | | | [facility] | | | | | | MEDICAL | | | | | | CENTER - | | | | | | LABORATORY | | + + + + + + | % | 69.6 | 45.0 - 82.0 % | [facility] | | | Neutrophils | | | [facility] | | | | | | MEDICAL | | | | | | CENTER - | | | | | | LABORATORY | | + + + + + + | % | 22.6 | 20.0 - 45.0 % | [facility] | | | Lymphocytes | | | [facility] | | | | | | MEDICAL | | | | | | CENTER - | | | | | | LABORATORY | | + + + + + + | % Monocytes | 7.0 | 4.0 - 12.0 % | [facility] | | | | | | [facility] | | | | | | MEDICAL | | | | | | CENTER - | | | | | | LABORATORY | | + + + + + + | % | 0.1 | 0.0 - 5.0 % | [facility] | | | Eosinophils | | | [facility] | | | | | | MEDICAL | | | | | | CENTER - | | | | | | LABORATORY | | + + + + + + | % Basophils | 0.3 | 0.0 - 1.0 % | [facility] | | | | | | [facility] | | | | | | MEDICAL | | | | | | CENTER - | | | | | | LABORATORY | | + + + + + + | % Immature | 0.4 | 0.0 - 0.4 % | [facility] | | | Granulocyte | | | [facility] | | | s | | | MEDICAL | | | | | | CENTER - | | | | | | LABORATORY | | + + + + + + | Absolute | 4.88 | 1.80 - 8.50 | [facility] | | | Neutrophils | | K/uL | [facility] | | | | | | MEDICAL | | | | | | CENTER - | | | | | | LABORATORY | | + + + + + + | Absolute | 1.59 | 0.60 - 3.20 | [facility] | | | Lymphocytes | | K/uL | [facility] | | | | | | MEDICAL | | | | | | CENTER - | | | | | | LABORATORY | | + + + + + + | Absolute | 0.49 | 0.00 - 1.00 | [facility] | | | Monocytes | | K/uL | [facility] | | | | | | MEDICAL | | | | | | CENTER - | | | | | | LABORATORY | | + + + + + + | Absolute | 0.01 | 0.00 - 0.40 | [facility] | | | Eosinophils | | K/uL | [facility] | | | | | | MEDICAL | | | | | | CENTER - | | | | | | LABORATORY | | + + + + + + | Absolute | 0.02 | 0.00 - 0.10 | [facility] | | | Basophils | | K/uL | [facility] | | | | | | MEDICAL | | | | | | CENTER - | | | | | | LABORATORY | | + + + + + + | Absolute | 0.03 | 0.00 - 0.03 | [facility] | | | Immature | | K/uL | [facility] | | | Granulocyte | | | MEDICAL | | | s | | | CENTER - | | [...] | 0.00 | 0.00 - 0.01 | [facility] | | | nRBC | | K/uL [...] [address] | [place] | [phone] | | [facility] | | [address] | | | - LABORATORY | | | | + + + + + IMAGING REPORT - EXTERNAL SCAN (12/20/2019 12:00 AM PDT) + + + | Narrative | Performed At | + + + | Ordered by an | | | unspecified provider. | | + + + documented in this encounter Visit Diagnoses + + | Diagnosis | + + | Left ureteral calculus - Primary Calculus of ureter | + + | Stage 3 chronic kidney disease (HCC) | + + | Pre-operative clearance Preoperative examination, unspecified | + + documented in this encounter
--- OUTSIDE RECORDS SUMMARY | ~2020-01-23 | XMS | Encounter Summary ---
Demographics + + + | Address | [address] | | | [place] [address] | + + + | Home Phone [...] | | | | | [place] [address] | | + + + + + | Melissa Daley | ECON | [address] | | | | | [place] [address] | | + + + + + Care Team Providers + +------+ + | Care Digital Music Instructor Name | Role | Phone | [...] | | BOOP | [place], | [address] [place] | | | | | (bronchiolit | Carmelita B, | [place], | | | | | is | MD [address] | [place] [address] | | | | | obliterans | [address] | Phone: | | | | | with | [place], | [phone] | | | | | organizing | [place] [address] | Fax: | | | | | pneumonia) | | [phone] | | | | | (HCC) | [...] | | BOOP | [place], | [place] | | | | | (bronchiolit | Carmelita B, | [place], | | | | | is | MD [address] | [place] [address] | | | | | obliterans | [address] | Phone: | | | | | with | [place], | [phone] | | | | | organizing | [place] [address] | Fax: | | | | | pneumonia) | | [phone] | | | | | (HCC) | [...] + | 01/12/ | Hospital | [facility] | Mike, | BOVASILIY (bronchiolitis | | 2014 | Encounter | [facility] [address] | Carmelita Penny MD | obliterans with | | | | [place], | | organizing | | | | [place] [address] | | pneumonia) ([facility]) | | | | [phone] | | | +--------+ + + + [...] | Visit | | MD Jorge A HENRIQEUZ | | | | | | [place] | | | | | | [address] | | | | | | | [...] 17, [address] | | | [facility]. 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
--- OUTSIDE RECORDS SUMMARY | ~2020-01-23 | XMS | Encounter Summary ---
Demographics + + + | Address | [address] | | | [place] [address] | + + + | Home Phone [...] | | | | | [place] [address] | | + + + + + | Melissa Daley | ECON | [address] | | | | | [place] [address] | | + + + + + Care Team Providers + +------+ + | Care Pai Gow Dealer Name | Role | Phone | + [...] | RN | | | | | [address] [place], | | | | | | [place] [address] | | | | | | [phone] | | | +--------+ + + + [...] [place] | | | | | | [address] | | | | | | | | +--------+---------+ + + + documented as of this encounter Visit Diagnoses Not on filedocumented in this encounter"
--- OUTSIDE RECORDS SUMMARY | ~2020-01-23 | XMS | Encounter Summary ---
Demographics + + + | Address | [address] | | | [place] [address] | + + + | Home Phone [...] | | | | | [place] [address] | | + + + + + | Melissa Daley | ECON | [address] | | | | | [place] [address] | | + + + + + Care Team Providers + +------+ + | Care Motorcycle Technician Name | Role | Phone | [...] | | [address] | [place] [address] | | | | | | [place], | Phone: | | | | | | [place] | [phone] | | | | | | [address] | Fax: | | | | | | Phone: | [phone] | | | | | | [phone] | | | | | | | Fax: | | | | | | | [phone] | | +--------+--------+ + + + + Encounter Details +--------+---------+ + + + | Date | Type | Department | Care Team | Description | +--------+---------+ + + + | 07/28/ | Office | [facility] | Donnie Palacios, | Plantar fasciitis of | | 2017 | Visit | ORTHOPEDIC SURGERY | MD [address] | right foot (Primary | | | | [address] [place] | [place] | Dx) | | | | [place] | [id number] | | | | | [address] | | | | | | [phone] | | | +--------+---------+ + + + [...] remodeling 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
--- OUTSIDE RECORDS SUMMARY | ~2020-01-23 | XMS | Encounter Summary ---
Demographics + + + | Address | [address] | | | [place] [address] | + + + | Home Phone [...] | | | | | [place] [address] | | + + + + + | Melissa Daley | ECON | [address] | | | | | [place] [address] | | + + + + + Care Team Providers + +------+ + | Care Bottle Assembler Name | Role | Phone | + +------+ + | Jona Deal MD | PCP | | + +------+ + Encounter Details +--------+ + + + + | Date | Type | Department | Care Team | Description | +--------+ + + + + | 01/12/ | Hospital | [facility] | [place]enstein, | DM type 2 (diabetes | | 2013 | Encounter | [facility] | Carmelita Penny MD | mellitus, type 2) | | | | [address] | | ([facility] | | | | [place] | | | | | | [address] | | | | | | [phone] | | | +--------+ + + + [...] [place] | | | | | | [address] | | | | | | | [...] | | | PDT | type 2) ([facility]) | results section. | + +--------+ + [...] + | [facility] | [address] | [place] | [phone] | | [facility] | | [address] | | | - LABORATORY | | | | + + + + + | [facility] | [address] | [place] | | | [facility] | | [address] | | | - LABORATORY | | [...]
--- OUTSIDE RECORDS SUMMARY | ~2020-01-23 | XMS | Encounter Summary ---
Demographics + + + | Address | [address] | | | [place] [address] | + + + | Home Phone [...] | | | | | [place] [address] | | + + + + + | Melissa Daley | ECON | [address] | | | | | [place] [address] | | + + + + + Care Team Providers + +------+ + | Care Supervisor [place] Name | Role | Phone | + +------+ + PCP | Unavailable | + +------+ + Encounter Details +--------+ + + + + | Date | Type | Department | Care Team | Description | +--------+ + + + + | 05/27/ | Hospital | [facility] | | | | 2000 | Encounter | MED CTR GENERIC OP | | | | | | CONV DEPT [address] | | | | | | [place], | | | | | | [place] [address] | | | | | | [phone] | | | +--------+ + + + [...]
--- OUTSIDE RECORDS SUMMARY | ~2020-01-23 | XMS | Encounter Summary ---
Demographics + + + | Address | [address] | | | [place] [address] | + + + | Home Phone [...] | | | | | [place] [address] | | + + + + + | Melissa Daley | ECON | [address] | | | | | [place] [address] | | + + + + + Care Team Providers + +------+ + | Care Curriculum Development Manager Name | Role | Phone | [...] | calculus (Primary | | | | [place], [place] | [place], [place] | Dx); Renal calculus, | | | | [address] | [address] | right | | | | [phone] | | | +--------+---------+ + + + [...] ts, also).These foods increase production of cystine. [employer] last reviewed this educational content on 07/23/201619998271-7703 [employer] [address] [place] [address], [place] [address]. All righ ts reserved. This information is [...] PRIOR OFFICE VISITS: Ron was transferred from [facility] on 12/15/2019 with an obstructing 11 mm [...] REPLACEM ENT; Surgeon: Kiko Garrido MD; Location: [facility] MAIN OR Outpatient Encounter Medications as of [...] Anterior leads Confirmed by MICHEL TERAN, LILLIAN ([id number]) on 01/05/2020 IMPRESSION: 1. 11 mm left [...] This document was generated in part using [employer]. Sometimes wrong word or sound-alike subs titutions [...]
--- OUTSIDE RECORDS SUMMARY | ~2020-01-23 | XMS | Encounter Summary ---
Demographics + + + | Address | [address] | | | [place] [address] | + + + | Home Phone | | + + + | Preferred Language | Unknown | + + + | Marital Status | | + + + | Roman Catholic Affiliation | 1013 | + + + | Race | Unknown | + + + | Ethnic Group | Unknown | + + + Author + + + | Author | [facility] | | | and [place] | + + + | Organization | [facility] | | | [...] | | | | | [place] [address] | | + + + + + | Melissa Daley | ECON | [address] | | | | | [place] [address] | | + + + + + Care Team Providers + +------+ + | Care Textile Engraver Name | Role | Phone | + [...] + + | 12/14/ | Hospital | [facility] | HemaKiko, | Ureteral calculus, | | 2019 - | Encounter | MED CTR SURGICAL | [address] | left; | | | | [address] [place] | [place], [place] | Hydronephrosis, | | 12/15/ | | [place] [address] | [address] | left; Renal colic on | | 2019 | | [phone] | | left side; Acute | | [...] voiding. Follow up: Call Dr Garrido's office ([phone]) to set up your follow-up appointment or [...] documented as of this encounter Progress Notes Kkio Garrido MD - 12/16/2019 9:32 AM PDTFormatting [...] 1935 Date of Admission: 12/15/2019 Requesting/Referring Physician: [facility] emergency department Chief Complaint: 11 mm proximal [...] a visit to the emergency department at [facility]. While at [facility], CT imaging was performed which demonstrated an [...] file Gets together: Not on file Attends anglican service: Not on file Active member of [...] 175 04/30/2014 PLT 169 12/15/2019 Creatinine at [facility] today is reported to be 1.5. Lab [...] Electronically signed by: Kiko Garrido MD 12/15/2019 [facility] documented in this en counter Miscellaneous Notes Plan of Care - Carmelita Mesa MSW - 12/16/2019 5:33 PM PDT Problem: Discharge Planning Goal: Patient's discharge needs will be identified in a timely manner Outcome: Met Goal: Patient will be discharged in a safe manner Outcome: Met This case manager specialist met with Ron to discuss his discharge plan. Ron states that he lives with his spouse Melissa in [place] at the [facility]. He states that he can d o his own ADLs. He doesn't use any A/D. The longterm home helps with cleaning, providing m eals. He takes his own meds. He feels he is still independent and Melissa helps with medication management. His daughter is Katie Yusuf. She will be providing transportation back to his Long Term home today. This CM met with Katie prior to Ron being discharged. We dicussed his OBS status. Provide d a brochure and a ALFRED form. Ron signed it and this CM provided him with a copy. Katie feels he is safe to return home today. PCP is Nilo, he uses [facility] in [place]. PLAN: Home with spouse, daughter Katie to transport. lan of Jeanna Berger RN - 12/16/2019 2:13 PM PDTPt adequate for discharge. PIV removed. Educated pt and pt daughter on discharge instruct ions with emphasis on calling for outpatient appointment and s/s to seek medical attention. Transferred to daughter's car via wheelchair. Daughter to drive pt back to living facility i n [place]. All questions answered. 20 3:38 PM PDTPlan of Destiny Ocampo Chaplain - 12/16/2019 10:12 AM PDT Yan newell Chun Daley is a 84 y.o. male who is admitted for ureteral stone left ureteral calculus LEFT URETERAL CALCULUS. Lead Generation Marketing Manager visit was part of routine rounding. Spiritual Evaluation: The patient was sitting up in his bed on the surgical unit and welcomed a spiritual care vi sit. He was immediately pleasant and engaging. The patient has a long, deep, and positive e xperience in his marriage, work and uatsdin. He lives at an assisted living facility with hi s , whose health is challenged, but he sees her resilience. He has been over 75 years and worked over 65 years. He enjoys the fellowship and fur matcher at the [facility] in [place]. His daughter works here and came to his bedside during our vis it. He is accepting of the need for surgery and has experienced this issue several times, s ome times needing hospitalization, other times not. Spiritual Interventions: The share holder attended, offered care, explored patient's life story [...] Daley 84 y.o. 1935 Med. Record Number: [id number] Date of Operation/Procedure: 12/15/2019 Preoperative Diagnosis: 11 mm mid left ureteral calculus Left hydronephrosis Left renal colic Acute Kidney Injury Postoperative Diagnosis: 11 mm mid left ureteral calculus Left hydronephrosis Left renal colic Acute Kidney Injury Surgeon: Kiko Garrido MD Certified Pediatric Nurse Practitioner(s): None Anesthesia Provider(s): Anesthesiologist: Pietro Tang MD [...] guidance up into the renal pelvis. A 7-Greek X 26 cm double-J stent was placed [...] Garrido MD, 12/15/2019 7:02 PM PDT [facility] documented in this en counter Plan [...] [place] | | | | | | [address] | | | | | | | [...] [address] | [place] | [phone] | | [facility] | | [address] | | | - LABORATORY | | [...] [address] | [place] | [phone] | | [facility] | | [address] | | | - LABORATORY | | [...] (H) | 60 - 106 mg/dL | [facility] | | | | | | [facility] | | | | | | MEDICAL | | | | | | CENTER - | | | | | | LABORATORY | | + + + + + + | BUN | 20 | 9 - 23 mg/dL | [facility] | | | | | | [facility] | | | | | | MEDICAL | | | | | | CENTER - | | | | | | LABORATORY | | + + + + + + | Creatinine | 1.19 | 0.70 - 1.30 | [facility] | | | | | mg/dL | [facility] | | | | | | MEDICAL | | | | | | CENTER - | | | | | | LABORATORY | | + + + + + + | eGFR, | 58 (L)Comment: | >=60 | [facility] | | | non- | GLOMERULAR FILTRATION | mL/min/1.73m2 | [facility] | | | Mauritian | RATE,ESTIMATED | | MEDICAL | | | | mL/min/1.00s8Kxta than | | CENTER - | | [...] + | [facility] | [address] | [place], [place] | [phone] | | [facility] | | [address] | | | - LABORATORY | | [...] [address] | [place] | [phone] | | [facility] | | [address] | | | - LABORATORY | | [...] 20 | 9 - 23 mg/dL | [facility] | | | | | | [facility] | | | | | | MEDICAL | | | | | | CENTER - | | | | | | LABORATORY | | + + + + + + | Creatinine | 1.39 (H) | 0.70 - 1.30 | [facility] | | | | | mg/dL | [facility] | | | | | | MEDICAL | | | | | | CENTER - | | | | | | LABORATORY | | + + + + + + | eGFR, | 48 (L)Comment: | >=60 | [facility] | | | non- | GLOMERULAR FILTRATION | mL/min/1.73m2 | [facility] | | | Mauritian | RATE,ESTIMATED | | MEDICAL | | | | mL/min/1.10w4Xzxn than | | CENTER - | | [...] + | [facility] | [address] | [place] | [phone] | | [facility] | | [address] | | | - LABORATORY | | [...] | | | | LILLIAN PEARSON MD ([id number]) | | | | | | on [...] ST. | [address] | [place] | [phone] | | [facility] | | [address] | | | - LABORATORY | | [...] than 38.3 | | | C, Starting [facility] 12/15/19 at 2003, | | | [...] | | | | First dose on [facility] 12/15/19 at 2100 | | AM [...] | | | | | | Starting [facility] 12/15/19 at 1659, For | | [...] PDT | | | | | Starting [facility] 12/15/19 at 1700 | | | [...] | | | | First dose on [facility] 12/15/19 at | | AM PDT | [...] AM PDT | | | | | [facility] 12/15/19 at 2030 | | | | [...]
--- OUTSIDE RECORDS SUMMARY | ~2020-01-23 | XMS | Encounter Summary ---
Demographics + + + | Address | [address] | | | [place] [address] | + + + | Home Phone [...] | | | | | [place] [address] | | + + + + + | Melissa Daley | ECON | [address] | | | | | [place] [address] | | + + + + + Care Team Providers + +------+ + | Care Harbormaster Name | Role | Phone | + [...] Penny MD | | | | | [place], | | | | | | [place] [address] | | | | | | [phone] | | | +--------+--------+ + + + [...] | | | | | [place] | | | | | | [address] | | | | | | | [...]
--- OUTSIDE RECORDS SUMMARY | ~2020-01-23 | XMS | Encounter Summary ---
Demographics + + + | Address | [address] | | | [place] [address] | + + + | Home Phone [...] | | | | | [place] [address] | | + + + + + | Melissa Daley | ECON | [address] | | | | | [place] [address] | | + + + + + Care Team Providers + +------+ + | Care Group Manager Name | Role | Phone | + +------+ + PCP | Unavailable | + +------+ + Encounter Details +--------+ + + + + | Date | Type | Department | Care Team | Description | +--------+ + + + + | 04/09/ | Hospital | [facility] | | | | 2000 | Encounter | MED CTR XRAY [address] | | | | | | [address] [place] | | | | | | [place] [address] | | | | | | [phone] | | | +--------+ + + + [...] [place] | | | | | | [id number] | | | | | | | | +--------+---------+ + + + documented as of this encounter Visit Diagnoses Not on filedocumented in this encounter"
--- OUTSIDE RECORDS SUMMARY | ~2020-01-23 | XMS | Encounter Summary ---
Demographics + + + | Address | [address] | | | [place] [address] | + + + | Home Phone [...] | | | | | [place] [address] | | + + + + + | Melissa Daley | ECON | [address] | | | | | [place] [address] | | + + + + + Care Team Providers + +------+ + | Care Insurance Customer Service Specialist Name | Role | Phone | [...] [place] | | | | | [place] | | [address] Phone: | | | | | CYSTO/URETER | | [phone] | | | | | O | | Fax: | | | | | W/LITHOTRIPS | | [phone] | | | | | Y &LIZ [...] Description | +--------+---------+ + + + | 01/03/ | Surgery | [facility] | Kiko Garrido, | CYSTOSCOPY LEFT | | 2019 | | MED CTR OR INTRA OP | MD Jorge A HENRIQUEZ | URETEROSCOPY W/ | | | | [address] | [place] | LASER LITHOTRIPSY, | | | | [place] | [address] | LEFT URETERAL STENT | | | | [address] | | REPLACEMENT | | | | [phone] | | | +--------+---------+ + + + [...] + + + | Blood Pressure | 163/89 | 01/04/2020 4:10 PM | | | | | PDT | | + + + + + | Pulse | 90 | 01/04/2020 4:10 PM | | | | | PDT | | + + + + + | Temperature | 36.4 C (97.5 F) | 01/04/2020 3:49 PM | | | | | PDT | | + + + + + | Respiratory Rate | 20 | 01/04/2020 4:10 PM | | | | | PDT | | + + + + + | Oxygen Saturation | 98% | 01/04/2020 4:10 PM | | | | | PDT [...] voiding. Follow up: Call Dr Garrido's office ([phone]) to set up your follow-up appointment or [...] Kiko Garrido MD - 01/04/2020 2:[facility] PM [facility] AND PHYSICAL [...] Garrido MD, 01/04/2020 2:01 PM PDT [facility] iko kuo MD - 12/26/2019 1:00 PM PDT HPI Ron Daley is a 84 y.o. male referred by Bunny Corcoran MD Today, 12/26/2019, Ron presents for a follow up for nephrolithiasis. Ron was transferred from [facility] on 12/15/2019 with an obstructive proxima [...] recently seen in the emergency department at [facility] on 12/20/2019 with compla ints of [...] 12/26/2019 KUB 12/22/2019: CT imaging 12/20/2019 at [facility] demonstrates "moderate left hydronephrosis and prox imal [...] surgical procedure and anesthesia including DVT, PE, VA, CVA, and even . Ron indicates his [...] This document was generated in part using [employer]. Sometimes wrong word or sound-alike sub stitutions [...] Daley 84 y.o. 1935 Med. Record Number: [id number] Date of Operation/Procedure: 01/04/2020 Preoperative Diagnosis: 11 mm Left Ureteral calculus Left ureteral obstruction Left hydronephrosis Postoperative Diagnosis: 11 mm Left Ureteral calculus Left ureteral obstruction Left hydronephrosis Surgeon: Kiko Garrido MD Custom Wood Stair Builder(s): None Anesthesia Provider(s): Anesthesiologist: Jaylan Pérez DO [...] and in a retrograde fashion, a 7- Chadian X 28 cm double-J stent was placed [...] Kiko Garrido MD, 01/04/2020 3:59 PM PDT [facility] documented in this en counter Plan [...] [place] | | | | | | [id number] | | | | | | | [...] | | | | LILLIAN PEARSON MD ([id number]) | | | | | | on [...] Procedure Note | + + | Dante, [id number] - 01/04/2020 8:39 PM PDT | | [...] [address] | [place] | [phone] | | [facility] | | [address] | | | - LABORATORY | | [...] Shortness of Breath, | | | Starting 01/04/20 at 1538, For | | | 1 [...] glucose < 50, | | | Starting 01/04/20 at 1252, | | | Repeat in [...] if | | | SBP <90., Starting Thu01/04/20 at | | | 1538, Hold if [...] One week or | | | longer, jvlhlp-oxb-jovju use of | | | at least [...] | | (NORCO) 5-325 mg per tablet | | 20 4:35 | | | | | tablet 1 tablet, Oral, EVERY 4 | | PM PDT | | | | | HOURS PRN, Pain, Starting Thu | | | | | | | 7/15/20 at 1620, Post-op/Phase II | | | [...] | | | | | Pain, Starting 01/04/20 at | | | | | | [...] | | | | | | | vrppzr-kek-osxlw use of at least | | | [...]
--- OUTSIDE RECORDS SUMMARY | ~2020-01-23 | XMS | Encounter Summary ---
Demographics + + + | Address | [address] | | | [place] [address] | + + + | Home Phone | | + + + | Preferred Language | Unknown | + + + | Marital Status | | + + + | Mandaen Affiliation | 1013 | + + + | Race | Unknown | + + + | Ethnic Group | Unknown | + + + Author + + + | Author | [facility] | | | and [place] | + + + | Organization | [facility] | | | [...] | | | | | [place] [address] | | + + + + + | Melissa Sheldon | ECON | [address] | | | | | [place] [address] | | + + + + + Care Team Providers + +------+ + | Care Sql Server Architect Name | Role | Phone | [...] + + | 09/29/ | Office | [facility] | Mike, | BOOP (bronchiolitis | | 2013 | Visit | PULMONARY [address] | Carmelita Penny MD | obliterans with | | | | [place], | | organizing | | | | [place] [address] | | pneumonia) ([facility]) | | | | [phone] | | (Primary Dx); | | | | | | Nocturnal hypoxemia; | | | | | | Diabetes mellitus | | | | | | ([facility]) | +--------+---------+ + + + [...] his lungs. They return today for [facility] follow up. Currently they are [...] strip Use to test blood sugar 4 treu es daily. 100 each 3 doxazosin (CARDURA) [...] time. I think he may need it terminal make up operator. He is not ve ry interested in [...] made to ensure accuracy; however, inadvertent computerized academic administrator errors may be pre sent. documented in [...] [place] | | | | | | [address] | | | | | | | | +--------+---------+ + + + + +------+--------+ + + | Name | Type | Priori | Associated Diagnoses | Order Schedule | | | | ty | | | + +------+--------+ + + | Glucose, Fasting | Lab | Routin | Diabetes mellitus | 1 Occurrences | | | | e | ([facility]) | starting 09/29/2012 | | | | | | until 09/29/2013 | + +------+--------+ + + documented as of this encounter Results XR Chest PA and Lateral (04/01/2013 1:07 PM PDT) + + | Specimen | + + | | + + + + + | Narrative | Performed At | + + + | [facility] | [facility] | | Department [address] [place] [address] | [facility] | | [ rep [address]] [ rep [facility] | | [facility]] Signed | - IMAGING | | | | | Patient Name: RON SHELDON V Physician: | | | OFFE. : 1935 Age: 78 Sex: M Unit #: [id number] | | | Exam Date: 04/01/13 Location: [facility] | | | Report #: [id number] Page: | | | %(RAD)RES..mtdd.print.filter("pg") of %(RAD) | | | RES..mtdd.print.filter("tpg") | | | | | | Accession Number: [id number] | | | CHEST X-RAY CLINICAL HISTORY: [...] | | | Transcribed Date/Time: 04/01/2013 13:30 Head Girls Golf Coach: | | | <<Signature on File>> | | | Mart | | | MD [place]04/01/13 7204 <Electronically signed by Mart Boyle MD> | | | Mart Boyle MD 04/01/13 1308 Head Girls Golf Coach: [employer] | | | Itdbxaylgzgrj19/11/13 9552 Carmelita Mckeon MD | | | | | + + + + + + + + | Performing | Address | City/State/Zipcode | Phone Number | | Organization | | | | + + + + + | [facility] | [address] 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
--- OUTSIDE RECORDS SUMMARY | ~2020-01-23 | XMS | Encounter Summary ---
Demographics + + + | Address | [address] | | | [place] [address] | + + + | Home Phone [...] | | | | | [place] [address] | | + + + + + | Melissa Sheldon | ECON | [address] | | | | | [place] [address] | | + + + + + Care Team Providers + +------+ + | Care Hydraulic Jack Operator Name | Role | Phone | + +------+ + | Jona Deal MD | PCP | | + +------+ + Encounter Details +--------+ + + + + | Date | Type | Department | Care Team | Description | +--------+ + + + + | 06/23/ | Hospital | [facility] | Offenstein, | BOOP (bronchiolitis | | 2012 - | Encounter | MED CTR XRAY [address] | Carmelita Penny MD | obliterans with | | | | [place] | | organizing | | 06/25/ | | [place] [address] | | pneumonia) (HCC) | | 2012 | | [phone] | | | +--------+ + + + [...] | | | | | | pneumonia) ([facility]) | | | | | | [...] | | | | | | pneumonia) ([facility]) | | | | | | [...] [place] | | | | | | [address] | | | | | | | [...] Performed At | + + + | [facility] | [place] | | Department [address] [facility], [place] | [facility] | | [ rep [address]] [ rep [facility] | | [facility] [place]] Signed | - IMAGING | | | | | Patient Name: RON SHELDON V Physician: | | | DOROTEO. : 1935 Age: 77 Sex: M Unit #: [id number] | | | Exam Date: 06/23/12 Location: [facility] | | | Report #: [id number] Page: | | | %(RAD)RES..mtdd.print.filter("pg") of %(RAD) | | | RES..mtdd.print.filter("tpg") | | | | | | Accession Number: [id number] | | | TWO-VIEW CHEST CLINICAL HISTORY: [...] Transcribed Date/Time: 06/23/2012 13:44 | | | Tightener: <<Signature on File>> | | | | | | Tan Keenan MD06/23/12 3175 <Electronically signed by | | | Tan Keenan MD> Tan Keenan MD 06/23/12 | | | 1339 Tightener: [employer] Sfwnrtptiogmc57/02/13 1344 | | | Carmelita Mckeon MD | | + + + + + + + + | Performing | Address | City/State/Zipcode | Phone Number | | Organization | | | | + + + + + | [facility] | [address] 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
--- OUTSIDE RECORDS SUMMARY | ~2020-01-23 | XMS | Encounter Summary ---
Demographics + + + | Address | [address] | | | [place] [address] | + + + | Home Phone [...] | | | | | [place] [address] | | + + + + + | Melissa Daley | ECON | [address] | | | | | [place] [address] | | + + + + + Care Team Providers + +------+ + | Care Escalator Service Mechanic Name | Role | Phone | [...] [place] | | | | | [place] | | [address] Phone: | | | | | CYSTO/URETER | | [phone] | | | | | O | | Fax: | | | | | W/LITHOTRIPS | | [phone] | | | | | Y &LIZ [...] | 01/03/ | Hospital | [facility] | Kiko Garrido, | Left ureteral | | 2019 | Encounter | MED CTR OR INTRA OP | [address] | calculus; | | | | [address] | [place], [place] | Obstruction of left | | | | [place], [place] | [address] | ureter; | | | | [address] | | Hydronephrosis, left | | | | [phone] | | | +--------+ + + + [...] voiding. Follow up: Call Dr Garrido's office ([phone]) to set up your follow-up appointment or [...] Garrido MD, 01/04/2020 2:01 PM PDT [facility] ttbritni, Kiko Gomez MD - 12/26/2019 1:00 PM PDT HPI Ron Daley is a 84 y.o. male referred by Bunny Corcoran MD Today, 12/26/2019, Ron presents for a follow up for nephrolithiasis. Ron was transferred from [facility] on 12/15/2019 with an obstructive proxima [...] recently seen in the emergency department at [facility] on 12/20/2019 with compla ints of constipation. [...] 12/26/2019 KUB 12/22/2019: CT imaging 12/20/2019 at [facility] demonstrates "moderate left hydronephrosis and prox imal [...] surgical procedure and anesthesia including DVT, PE, NJ, CVA, and even . Ron indicates his [...] This document was generated in part using WeHaus[employer]. Sometimes wrong word or sound-alike sub stitutions [...] Pt. Name/Age/: Ron Daley 84 y.o. 1935 [facility]. Record Number: [id number] Date of Operation/Procedure: 01/04/2020 Preoperative Diagnosis: 11 mm Left Ureteral calculus Left ureteral obstruction Left hydronephrosis Postoperative Diagnosis: 11 mm Left Ureteral calculus Left ureteral obstruction Left hydronephrosis Surgeon: Kiko Garrido MD Social Service Technician(s): None Anesthesia Provider(s): Anesthesiologist: Jaylan Pérez DO [...] and in a retrograde fashion, a 7- Botswanan X 28 cm double-J stent was placed [...] Garrido MD, 01/04/2020 3:59 PM PDT [facility] [...] [place] | | | | | | [address] | | | | | | | [...] | | | | LILLIAN PEARSON MD ([id number]) | | | | | | on [...] Procedure Note | + + | Dante, [id number] - 01/04/2020 8:39 PM PDT | | [...] [address] | [place] | [phone] | | [facility] | | [address] | | | - LABORATORY | | [...] One week or | | | longer, fbfzxd-fxm-oofkb use of | | | at least [...] | | | | | | | atitmz-goe-txnqc use of at least | | | [...]
--- OUTSIDE RECORDS SUMMARY | ~2020-01-23 | XMS | Encounter Summary ---
Demographics + + + | Address | [address] | | | [place] [address] | + + + | Home Phone [...] | | | | | [place] [address] | | + + + + + | Melissa Daley | ECON | [address] | | | | | [place] [address] | | + + + + + Care Team Providers + +------+ + | Care Drawing Kiln Supervisor Name | Role | Phone | + +------+ + | Jona Deal MD | PCP | | + +------+ + Reason for Visit +--------+--------+ + | Reason | Onset | Comments | | | Date | | +--------+--------+ + | Other | 01/13/ | sleep study | | | 2013 | | +--------+--------+ + Encounter Details +--------+ + + + + | Date | Type | Department | Care Team | Description | +--------+ + + + + | 01/13/ | Telephone | [facility] [place] | Offenstein, | Other (sleep study) | | 2013 | | PULMONARY [address] | Carmelita Penny MD | | | | | [place], | | | | | | [place] [address] | | | | | | [phone] | | | +--------+ + + + [...] Telephone Encounter - Carmelita Mckeon MD - 2014 4:00 PM PDTNoted. Thanks. Halina ctronically signed by Carmelita Mckeon MD at 2014 4:00 PM PDTTelephone Encounter - Marci Mcneal, RN - 2014 3:08 PM PDTCalled Ron and advised that Dr Jacklyn duvall is recommending that he have a diagnostic sleep study. He states that he is not interested . documented in this encounter Plan of Treatment +--------+---------+ + + + | Date | Type | Specialty | Care Team | Description | +--------+---------+ + + + | 01/21/ | Office | Urology | Kiko Garrido, | | | 2020 | Visit | | MD Jorge A HENRIQUEZ | | | | | | [place] | | | | | | [address] | | | | | | | | +--------+---------+ + + + documented as of this encounter Visit Diagnoses Not on filedocumented in this encounter"
--- OUTSIDE RECORDS SUMMARY | ~2020-01-23 | XMS | Encounter Summary ---
Demographics + + + | Address | [address] | | | [place] [address] | + + + | Home Phone [...] | | | | | [place] [address] | | + + + + + | Melissa Daley | ECON | [address] | | | | | [place] [address] | | + + + + + Care Team Providers + +------+ + | Care Endoscopy Registered Nurse Name | Role | Phone | [...] [place] | | | | | [address] | [address] | | | | | [phone] | | | +--------+ + + + [...] [place] | | | | | | [address] | | | | | | | | +--------+---------+ + + + documented as of this encounter Visit Diagnoses Not on filedocumented in this encounter"
--- OUTSIDE RECORDS SUMMARY | ~2020-01-23 | XMS | Encounter Summary ---
Demographics + + + | Address | [address] | | | [place] [address] | + + + | Home Phone | | + + + | Preferred Language | Unknown | + + + | Marital Status | | + + + | Latter-Day Affiliation | 1013 | + + + | Race | Unknown | + + + | Ethnic Group | Unknown | + + + Author + + + | Author | [facility] | | | and [place] | + + + | Organization | [facility] | | | and [...] | | | | | [place] [address] | | + + + + + | Melissa Daely | ECON | [address] | | | | | [place] [address] | | + + + + + Care Team Providers + +------+ + | Care Field Support Representative Name | Role | Phone | + [...] | RN | | | | | [place], | | | | | | [place] [address] | | | | | | [phone] | | | +--------+ + + + [...]
--- OUTSIDE RECORDS SUMMARY | ~2020-01-23 | XMS | Encounter Summary ---
Demographics + + + | Address | [address] | | | [place] [address] | + + + | Home Phone [...] | | | | | [place] [address] | | + + + + + | Melissa Daley | ECON | [address] | | | | | [place] [address] | | + + + + + Care Team Providers + +------+ + | Care Banbury Machine Operator Name | Role | Phone [...] | calculus; | | | | [place] | [address] | Pre-operative | | | | [address] | [place] | clearance | | | | [phone] | [phone] | | | | | | | [...] [] Asymptomatic - testing requested by authorized [facility] personnel, [facility] Infection Prevention Nurse or Caregiver Health [] [...] | 2020 | Visit | | MD Joreg A HENRIQUEZ | | | | | | [place] | | | | | | [address] | | | | | | | [...] + | Performed at: 01 - [facility] [address] [place], [place] | REFERENCE LAB | | [phone] Ophthalmology Surgical Technician: Dat Lan MD, Phone: [phone] | [facility] | + + + + + + + + | Performing | Address | City/State/Zipcode | Phone Number | | Organization | | | | + + + + + | REFERENCE LAB | [address] | [place], [place] | [phone] | | [facility] | [place] | [address] | | + + + + + documented in this encounter Visit Diagnoses + + | Diagnosis | + + | Left ureteral calculus Calculus of ureter | + + | Pre-operative clearance Preoperative examination, unspecified | + + documented in this encounter"
--- OUTSIDE RECORDS SUMMARY | ~2020-01-23 | XMS | Encounter Summary ---
Demographics + + + | Address | [address] | | | [place] [address] | + + + | Home Phone [...] | | | | | [place] [address] | | + + + + + | Melissa Daley | ECON | [address] | | | | | [place] [address] | | + + + + + Care Team Providers + +------+ + | Care Elementary Science Teacher Name | Role | Phone | + +------+ + PCP | Unavailable | + +------+ + Encounter Details +--------+ + + + + | Date | Type | Department | Care Team | Description | +--------+ + + + + | 04/16/ | Hospital | [facility] | | | | 2000 - | Encounter | MED CTR OP REHAB | | | | | | [address] | | | | 04/20/ | | [place] [address] | | | | 2000 | | [phone] | | | +--------+ + + + [...]
--- OUTSIDE RECORDS SUMMARY | ~2020-01-23 | XMS | Encounter Summary ---
Demographics + + + | Address | [address] | | | [place] [address] | + + + | Home Phone | | + + + | Preferred Language | Unknown | + + + | Marital Status | | + + + | Pentecostal Affiliation | 1013 | + + + | Race | Unknown | + + + | Ethnic Group | Unknown | + + + Author + + + | Author | [facility] | | | and [place] | + + + | Organization | [facility] | | | [...] | | | | | [place] [address] | | + + + + + | Melissa Sheldon | ECON | [address] | | | | | [place] [address] | | + + + + + Care Team Providers + +------+ + | Care Cleaning Attendant Name | Role | Phone | [...] + + | 07/26/ | Office | [facility] | Mike, | BOOP (bronchiolitis | | 2013 | Visit | PULMONARY [address] | Carmelita Penny MD | obliterans with | | | | [place], | | organizing | | | | [place] [address] | | pneumonia) (HCC) | | | | [phone] | | (Primary Dx); | | | [...] Janis [facility] [place] [facility] [address] [place], [address] HPI Ron Sheldon is a 78 y.o. [...] made to ensure accuracy; however, inadvertent computerized boxcar weigher errors may be pre sent. Katelynn in [...] [place] | | | | | | [address] | | | | | | | [...] Performed At | + + + | [facility] | [place] | | Department [address] [facility] | [facility] | | [ rep ct street1+2] [ rep ct [facility] | | st zip] Signed | - IMAGING | | | | | Patient Name: RON SHELDON V Physician: | | | DOROTEO. : 1935 Age: 78 Sex: M Unit #: [id number] | | | Exam Date: 07/26/13 Location: [facility] | | | Report #: [id number] Page: | | | %(RAD)RES..mtdd.print.filter("pg") of %(RAD) | | | RES..mtdd.print.filter("tpg") | | | | | | Accession Number: [id number] | | | CHEST, PA AND LATERAL, [...] Transcribed Date/Time: 07/26/2013 16:02 | | | Tank Builder: <<Signature on File>> | | | | | | Kiko Hair MD07/26/131 <Electronically signed by Kiko | | | Melina Hair MD> Kiko Hair MD 07/26/13 1432 | | | Tank Builder: [employer]anabelle Ohnfgtnmlkgto73/04/14 1602 | | | Carmelita Mckeon MD | | + + + + + + + + | Performing | Address | City/State/Zipcode | Phone Number | | Organization | | | | + + + + + | [facility] | [address] | [place] | [phone] | | [facility] | | [address] | | | - IMAGING | | [...]
--- OUTSIDE RECORDS SUMMARY | ~2020-01-23 | XMS | Encounter Summary ---
Demographics + + + | Address | [address] | | | [place] [address] | + + + | Home Phone [...] | | | | | [place] [address] | | + + + + + | Melissa Daley | ECON | [address] | | | | | [place] [address] | | + + + + + Care Team Providers + +------+ + | Care Blueprinting And Photocopy Supervisor Name | Role | Phone | [...] Penny MD | | | | | [place], | | | | | | [place] [address] | | | | | | [phone] | | | +--------+--------+ + + + [...] | | | | | [place] | | | | | | [address] | | | | | | | [...]
--- OUTSIDE RECORDS SUMMARY | ~2020-01-23 | XMS | Encounter Summary ---
Demographics + + + | Address | [address] | | | [place] [address] | + + + | Home Phone [...] | | | | | [place] [address] | | + + + + + | Melissa Sheldon | ECON | [address] | | | | | [place] [address] | | + + + + + Care Team Providers + +------+ + | Care Insulation Blower Name | Role | Phone | + +------+ + | Jona Deal MD | PCP | | + +------+ + Encounter Details +--------+ + + + + | Date | Type | Department | Care Team | Description | +--------+ + + + + | 06/01/ | Hospital | [facility] | Offenstein, | BOOP (bronchiolitis | | 2011 - | Encounter | MED CTR GENERIC OP | Carmelita Penny MD | obliterans with | | | | CONV DEPT [address] | | organizing | | 06/03/ | | [place], | | pneumonia) (HCC) | | 2011 | | [place] [address] | | | | | | [phone] | | | +--------+ + + + [...] | | | | pneumonia) ([facility]) | | | | | | [...] | | | | pneumonia) ([facility]) | | | | | | [...] [place] | | | | | | [address] | | | | | | | [...] | | | | pneumonia) ([facility]) | | + +--------+ + + + documented in this encounter Results XR Chest PA and Lateral (06/01/2012 2:14 PM PST) + + | Specimen | + + | | + + + + + | Narrative | Performed At | + + + | [facility] Diagnostic Imaging | [place] | | Department [address] [place], [place] [address] | [facility] | | [ rep ct street1+2] [ rep ct [facility] | | st zip] Signed | - IMAGING | | | | | Patient Name: RON SHELDON V Physician: | | | DOROTEO. : 1935 Age: 77 Sex: M Unit #: [id number] | | | Exam Date: 06/01/12 Location: [facility] | | | Report #: [id number] Page: | | | %(RAD)RES..mtdd.print.filter("pg") of %(RAD) | | | RES..mtdd.print.filter("tpg") | | | | | | Accession Number: [id number] | | | CHEST PA AND LATERAL, [...] Transcribed Date/Time: 06/01/2012 15:42 | | | Commercial Maintenance Technician: <<Signature on File>> | | | | | | Rakesh Guerrero MD06/01/122004 <Electronically signed by Rakesh Whitmore | | | Yolanda TERAN> Rakesh Guerrero MD 06/01/12 1414 | | | Commercial Maintenance Technician: Cayetano Fxqcokdxmjyzc93/11/12 4098 | | | Carmelita Mckeon MD | | + + + + + + + + | Performing | Address | City/State/Zipcode | Phone Number | | Organization | | | | + + + + + | [facility] | [address] 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
--- OUTSIDE RECORDS SUMMARY | ~2020-01-23 | XMS | Encounter Summary ---
Demographics + + + | Address | [address] | | | [place] [address] | + + + | Home Phone [...] | | | | | [place] [address] | | + + + + + | Melissa Daley | ECON | [address] | | | | | [place] [address] | | + + + + + Care Team Providers + +------+ + | Care Yarn Handler Name | Role | Phone | + [...] performed | | | | [address] | [place], [place] | | | | | [place], [place] | [address] | | | | | [address] | | | | | | [phone] | | | +--------+---------+ + + + [...] voiding. Follow up: Call Dr Garrido's office ([phone]) to set up your follow-up appointment or [...] 1935 Date of Admission: 12/15/2019 Requesting/Referring Physician: [facility] emergency department Chief Complaint: 11 mm proximal [...] a visit to the emergency department at [facility]. While at [facility], CT imaging was performed which demonstrated an [...] nephrolithiasis BOOP (bronchiolitis obliterans with organizing pneumonia) ([facility]) Carpal tunnel syndrome Cataract Colon polyps Cough [...] file Gets together: Not on file Attends holiness service: Not on file Active member of [...] 175 04/30/2014 PLT 169 12/15/2019 Creatinine at [facility] today is reported to be 1.5. Lab [...] surgical procedure and anesthesia including DVT, PE, NV, CVA, and even . Ron indicates his [...] Kiko Garrido MD 12/15/2019 [facility] documented in this en counter Miscellaneous Notes Plan of Care - [place], PROFILE SHAPER OPERATOR - 12/16/2019 5:33 PM PDT Problem: Discharge Planning Goal: Patient's discharge needs will be identified in a timely manner Outcome: Met Goal: Patient will be discharged in a safe manner Outcome: Met This ed case manager met with Ron to discuss his discharge plan. Ron states that he lives with his spouse Melissa in [place] at the [facility]. He states that he can d o his own ADLs. He doesn't use any A/D. The shelter home helps with cleaning, providing m eals. He takes his own meds. He feels he is still independent and Melissa helps with medication management. His daughter is Katie Yusuf. She will be providing transportation back to his [place] home today. This CM met with Katie prior to Ron being discharged. We dicussed his OBS status. Provide d a brochure and a ALFRED form. Ron signed it and this CM provided him with a copy. Katie feels he is safe to return home today. PCP is Nilo, he uses [facility] in [place]. PLAN: Home with spouse, daughter Katie to transport. lan of Chun Warner, Jeanna Summers RN - 12/16/2019 2:13 PM PDTPt adequate for discharge. PIV removed. Educated pt and pt daughter on discharge instruct ions with emphasis on calling for outpatient appointment and s/s to seek medical attention. Transferred to daughter's car via wheelchair. Daughter to drive pt back to living facility [facility] [place]. All questions answered. 20 3:38 PM PDTPlan Destiny Dugan Chaplain - 12/16/2019 10:12 AM PDT Spiritua l Chun Daley is a 84 y.o. male who is admitted for ureteral stone left ureteral calculus LEFT URETERAL CALCULUS. Undercover Agent visit was part of routine rounding. Spiritual Evaluation: The patient was sitting up in his bed on the surgical unit and welcomed a spiritual care vi sit. He was immediately pleasant and engaging. The patient has a long, deep, and positive e xperience in his marriage, work and gnosticism. He lives at an assisted living facility with hi s , whose health is challenged, but he sees her resilience. He has been over 75 years and worked over 65 years. 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 His daughter works here and came to his bedside during our vis it. He is accepting of the need for surgery and has experienced this issue several times, s ome times needing hospitalization, other times not. Spiritual Interventions: The chief of staff attended, offered care, explored patient's life story [...] Pt. Name/Age/: Ron Daley 84 y.o. 1935 [facility]. Record Number: [id number] Date of Operation/Procedure: 12/15/2019 Preoperative Diagnosis: 11 mm mid left ureteral calculus Left hydronephrosis Left renal colic Acute Kidney Injury Postoperative Diagnosis: 11 mm mid left ureteral calculus Left hydronephrosis Left renal colic Acute Kidney Injury Surgeon: Kiko Garrido MD Grand Jury Deputy Sheriff(s): None Anesthesia Provider(s): Anesthesiologist: Pietro Tang MD [...] guidance up into the renal pelvis. A 7-Greenlandic X 26 cm double-J stent was placed [...] Kiko Garrido MD, 12/15/2019 7:02 PM PDT [facility] documented in this en counter Plan of Treatment +--------+---------+ + + + | Date | Type | Specialty | Care Team | Description | +--------+---------+ + + + | 01/21/ | Office | Urology | Kiko Garrido, | | | 2020 | Visit | | MD Jorge A HENRIQUEZ | | | | | | [place] | | | | | | [address] | | | | | | | [...] [address] | [place] | [phone] | | [facility] | | [address] | | | - LABORATORY | | [...] | | | Cells | | | [facility] | | | | | | MEDICAL | | | | | | CENTER - | | | | | | LABORATORY | | + + + + + + | Red Blood | 4.32 | 4.30 - 5.70 | [facility] | | | Cells | | M/uL | [facility] | | | | | | MEDICAL [...] [address] | [place] | [phone] | | [facility] | | [address] | | | - LABORATORY | | [...] mL/min/1.73m2 | [facility] | | | [facility] | RATE,ESTIMATED | | MEDICAL | | | | mL/min/1.27s5Zivn than | | CENTER - | | [...] [address] | [place] | [phone] | | [facility] | | [address] | | | - LABORATORY | | [...] + | [facility] | [address] | [place] | [phone] | | [facility] | | [address] | | | - LABORATORY | | [...] mL/min/1.73m2 | [facility] | | | [place] | RATE,ESTIMATED | | MEDICAL | | | | mL/min/1.23s8Ozky than | | CENTER - | | [...] [address] | [place] | [phone] | | [facility] | | [address] | | | - LABORATORY | | [...] | | | | LILLIAN PEARSON MD ([id number]) | | | | | | on [...] [address] | [place] | [phone] | | [facility] | | [address] | | | - LABORATORY | | [...]
--- OUTSIDE RECORDS SUMMARY | ~2020-01-23 | XMS | Clinical Summary ---
Demographics + + + | Address | [address] | | | [place] [address] | + + + | Home Phone [...] | | | | | [place] [address] | | + + + + + | Melissa Daley | ECON | [address] | | | | | [place] [address] | | + + + + + Care Team Providers + +------+ + | Care Paper Products Supervisor Name | Role | Phone | + +------+ + | Bunny Corcoran | PCP | | | MD | | | + +------+ + Allergies + + + + + + | Active Allergy | Reactions | Severity | Noted | Comments | | | | | Date | | + + + + + + | Meperidine | | | 05/31/20 | | | | | | 12 | | + + + + + + | Iodine | | | 05/31/20 | IV Iodine | | | | | 12 | | + + + + + + | Morphine | | | 05/31/20 | | | | | | 12 [...] mg by mouth | | 0 | 12/ | | Activ | | (LIPITOR) 40 mg | nightly. | | | 03/11 | | e | | tablet | | | | 16 | | | + + + +---------+------+------+-------+ | doxazosin | take 1/2 tablet by | | 0 | /3 | | Activ | | (CARDURA) 8 [...] mouth 2 times daily. | | | 2 | | e | | tablet | | | | 17 | | | + + + +---------+------+------+-------+ | valsartan (DIOVAN) | | | 0 | 01/2 | | Activ | | 160 mg tablet | | | | 4/20 | | e | | | | | | 20 | | | + + + +---------+------+------+-------+ | timolol maleate | | | 0 | 10/1 | | Activ | | (TIMOPTIC) 0.5% | | | | 2/20 | | e | | ophthalmic solution | | | | 19 | | | + + + +---------+------+------+-------+ | tamsulosin | take 1 capsule by | | 0 | 06/0 | | Activ | | (FLOMAX) 0.4 mg CAPS | mouth at bedtime | | | 3/20 | | e | | | | | | 20 | | | + + + +---------+------+------+-------+ | lisinopril | Daily. | | 0 | | | Activ | | (PRINIVIL, ZESTRIL) | | | | | | e | | 10 mg tablet | | | | | | | + + + +---------+------+------+-------+ | ibuprofen | ibuprofen 600 mg | | 0 | | | Activ | | (ADVIL,MOTRIN) 600 | tablet not taking | | | | | e | | MG tablet | | | | | | | + + + +---------+------+------+-------+ | diclofenac | diclofenac 0.1 % eye | | 0 | | | Activ | | (VOLTAREN) 0.1 % | drops | | | | | e | | ophthalmic solution | | | | | | | + + + +---------+------+------+-------+ | ciprofloxacin | ciprofloxacin 0.3 % | | 0 | | | Activ | | (CILOXAN) 0.3% | eye drops | | | | | e | | ophthalmic solution | | | | | | | + + + +---------+------+------+-------+ | albuterol | Ventolin HFA 90 | | 0 | | | Activ | | (VENTOLIN HFA) 90 | mcg/actuation | | | | | e | | mcg/puff inhaler | aerosol inhaler | | | | | | | | current | | | | | | + + + +---------+------+------+-------+ | atorvaSTATin | take 1 tablet by | | 0 | 07/0 | | Activ | | (LIPITOR) 20 mg | mouth once daily | | | 02/08 | | e | | tablet | | | | 20 | | | + + + +---------+------+------+-------+ | prednisoLONE (PRED | prednisolone acetate | | 0 | | 12/20 | Disco | | FORTE) 1% | 1 % eye | | | | 11/08 | ntinu | | ophthalmic | drops,suspension | | | | 20 | ed | | suspension | having left cataract | | | | | (Ther | | | surgery 10/30/15 | | | | | apy | | | | | | | | compl | | | | | | | | eted) | + + + +---------+------+------+-------+ | cephalexin | Take 1 capsule by | 6 | 0 | 12/20 | 12/20 | Expir | | (KEFLEX) 500 mg | mouth 3 times daily | capsule | | 12/09 | 02/08 | ed | | capsule | for 2 days. | | | 20 | 20 | | + + + +---------+------+------+-------+ Active Problems + + + | Problem | Noted Date | + + + | Left ureteral calculus | 12/27/2019 | + + + + + | Overview: Added automatically from request for surgery | | [id number] | + + + + + | Fracture of multiple ribs | 12/26/2019 | + + + | Pleural effusion | 12/26/2019 | + + + | Ureteral calculus, [...] + + + + | 01/12/ | Office | Neurology | Erica Nova | Sleepiness (Primary | | 2019 | Visit | | MD Sebastian | Dx) | +--------+ + + + + | 01/10/ | Office | Urology | Kiko Garrido, | Left ureteral | | 2019 | Visit | | MD | calculus (Primary | | | | | | Dx); Renal calculus, | | | | | | right | +--------+ + + + + | 01/10/ | Hospital | Radiology | Kiko Garrido, | Left ureteral | | 2019 | Encounter | | | calculus | +--------+ + + + + | 01/05/ | Orders Only | Urology | Kiko Garrido, | Left ureteral | | 2020 | | | MD | calculus (Primary | | | | | | Dx) | +--------+ + + + + | 01/05/ | Orders Only | Urology | Renae Rayo, | | | 2019 | | | PROJECT CONTROL OFFICER | | +--------+ + + + + | 01/03/ | Anesthesia | | Jaylan Pérez | | | 2019 | Event | | DO Drew | | +--------+ + + + + | 01/03/ | Surgery | | Kiko Garrido, | CYSTOSCOPY LEFT | | 2019 | | | MD | URETEROSCOPY W/ | | | | | | LASER LITHOTRIPSY, | | | | | | LEFT URETERAL STENT | | | | | | REPLACEMENT | +--------+ + + + + | 01/03/ | Hospital | | Kiko Garrido, | Left ureteral | | 2019 | Encounter | | MD | calculus; | | | | | | Obstruction of left | | | | | | ureter; | | | | | | Hydronephrosis, left | +--------+ + + + + | 01/03/ | Hospital | Radiology | Kiko Garrido, | | | 2019 | Encounter | | MD | | +--------+ + + + + | 12/30/ | Clinical | Immediate Care | Jarod | Left ureteral | | 2019 | Support | | Alex Elmore MD | calculus; | | | | | | Pre-operative | | | | | | clearance | +--------+ + + + + | 12/26/ | Imaging | Radiology | Provider, | | | 2019 | Exam | | MD Joy | | +--------+ + + + + | 12/25/ | Office | Urology | Kiko Garrido, | Left ureteral | | 2019 | Visit | | MD | calculus (Primary | | | | | | Dx); Stage 3 chronic | | | | | | kidney disease | | | | | | (HCC); Pre-operative | | | | | | clearance | +--------+ + + + + | 12/25/ | Prep for | Urology | Kiko Garrido, | | | 2019 | Procedure | | | | +--------+ + + + + | 12/22/ | Imaging | Radiology | Mony, | | | 2019 | Exam | | MD Joy | | +--------+ + + + + | 12/20/ | Orders Only | Urology | Renae Rayo | | | 2019 | | | PROJECT CONTROL OFFICER | | +--------+ + + + + | 12/19/ | Telephone | Urology | Kiko Garrido, | Appointment | | 2019 | | | MD | | +--------+ + + + [...] | Imaging | Radiology | Provider, | | 2019 | Exam | | MD Joy | | +--------+ + + + + | 12/14/ | Surgery | | Kiko Garrido, | Procedure not | | 2019 | | | MD | performed | +--------+ + + + + from Last 3 Months Immunizations + + + + | Name | Administration Dates | Next Due | + + + + | INFLUENZA 63 Y OR >, | 03/11/2016, 03/27/2015, 03/08/2014 | | | TRIVALENT HIGH-DOSE | | | + + + + | INFLUENZA PF 16 Y OR | 03/25/2013, 05/25/2012 | | | >,TRIVALENT | | | | RECOMBINANT | | | + + + + | INFLUENZA PF 63 Y OR | 02/28/2019, 03/02/2018 | | | >,TRIVALENT (FLUAD) | | | + + + + | INFLUENZA PF | 02/24/2017 | | | QUAD(PED/ADOL/ADULT) | | | | ,PSKT or VIAL | | | + + + + | INFLUENZA PF | 03/21/2013, 04/29/2010 | | | TRIVALENT(PED/ADOL/A | | | | DULT), PSKT | | | + + + + | INFLUENZA TRIV | 02/28/2019 | | | W/PRES(PED/ADOL/ADUL | | | | T),MULTIDOSE | | | + + + + | INFLUENZA, Q6G0-15, | 06/18/2009 | | | UNSPECIFIED | | | + + + + | INFLUENZA, | 03/28/2009, 05/05/2007 | | | UNSPECIFIED | | | | FORMULATION | | | + + + + | PNEUMOCOCCAL | 03/21/2016 | | | CONJUGATE 13-VALENT | | | | (PCV13) | | | + + + + | PNEUMOCOCCAL | 07/21/2012, 06/23/2002 | | | POLYSACCHARIDE | | | | 23-VALENT (PPSV23) | | | + + + + | TDAP, (ADOL/ADULT) | 03/21/2016, 02/02/2012 | | + + + + | ZOSTER, 1 DOSE | 02/02/2012 | | | (ZOSTAVAX) | | | + + + + [...] | 01/21/ | Office | Urology | HemaKiko noguera, | | | 2020 | Visit | | MD Jorge A HENRIQUEZ | | | | | | [place] | | | | | | [id number] | | | | | | | [...] + + | Vaccine: Influenza | | 02/29/20 | | | (#1) | 0 | 19, | | | | | 02/29/20 | | | | | 19, | | | | | 03/02/20 | | | | | 18, | | | | | Addition | | | | | al | | | | | history | | | | | exists | | + + + + + | Med Mgmt: Uric Acid | | 12/16/19 | | | | 1 | 20 | | + + + + + | Med Mgmt: BUN | | 12/26/19 | | | | 1 | 20, | | | | | 12/16/19 | | | | | 20, | | | | | 12/15/19 | | | | | 20, | | | | | Addition | | | | | al | | | | | history | | | | | exists | | + + + + + | Med Mgmt: Cr | | 12/26/19 | | | | 1 | 20, | | | | | 12/16/19 | | | | | 20, | | | | | 12/15/19 | | | | | 20, | | | | | Addition | | | | | al | | | | | history | | | | | exists | | + + + + + | Med Mgmt: K | | 12/26/19 | | | | 1 | 20, | | | | | 12/16/19 | | | | | 20, | | | | | 12/15/19 | | | | | 20, | | | | | Addition | | | | | al | | | | | history | | | | | exists | | + + + + + | Medication | | 12/26/19 | | | Management | 1 | 20 | | + + + + + | Vaccine: | | 03/21/20 | | | Dtap/Tdap/Td (3 - | 6 | 16, | | | Td) | | 02/02/20 | | | | | 12 | | + + + + + | Vaccine: | Completed | 03/21/20 | | | Pneumococcal 65+ | | 16, | | | | | 07/21/19 | | | | | 13, | | | | [...] 7fr 26cm | Stent | Left: | ABILIO KNOX | | 09/20/ | [id number] | | - Sn/AImplanted: Qty: 1 on | | Ureter | INCORPORATE | | 2022 | /N/A | | 12/15/2019 by Kiko Garrido | | | D | | | [id number] | | MD Patricia at [facility] | | | | | | [address] | | [facility] | | | | | | | + +-------+--------+ +--------+--------+--------+ | Stent Uro Unvrs Sft 7fr 28cm | Stent | Left: | ABILIO KNOX | | 09/01/ | [id number] | | - SnaImplanted: Qty: 1 on | | Ureter | INCORPORATE | | 2022 | /NA | | 01/04/2020 by Kiko Garrido | | | Brijesh | | | /[id number] | | MD Patricia at [facility] | | | | | | [address] | | [facility] | | | | | | | [...] + | URINALYSIS, REFLEX | Routin | 12/26/2019 | Left ureteral | Results for this | | MICROSCOPIC AND/OR | e | 2:05 PM | calculus | procedure are in the | | CULTURE | | PDT | Pre-operative | results section. | | | | | clearance | | + +--------+ + + + | BASIC METABOLIC | Routin | 12/26/2019 | Left ureteral | Results for this | | PANEL | e | 2:05 PM | calculus | procedure are in the | | | | PDT | Pre-operative | results section. | | | | | clearance | | + +--------+ + + + | CBC WITH | Routin | 12/26/2019 | Left ureteral | Results for this | | DIFFERENTIAL | e | 2:05 PM | calculus | procedure are in the [...] + + from Last 3 Months Results XR Abdomen AP (01/11/2020 9:19 AM PDT)Only the most recent of 3 results within the time tamy restrepo is included. + + | Specimen | + + [...] Procedure Note | + + | Dante, [id number] - 01/11/2020 9:32 AM PDT XR ABDOMEN [...] | | | + +---------+ + + ECG 12 lead (01/04/2020 3:53 PM PDT)Only the most recent of 2 results within the time deanna od is included. + + + + + [...] | | | | LILLIAN PEARSON MD ([id number]) | | | | | | on [...] Procedure Note | + + | Dante, [id number] - 01/04/2020 8:39 PM PDT | | [...] | | | + +---------+ + + Anesthesia Airway Note (01/04/2020 2:25 PM PDT) [...] medication documentation. | | + + + POC Glucose (01/04/2020 1:19 PM PDT) + +---------+ + + + | Component | Value | Ref Range | Performed | Pathologist | | | | | At | Signature | + +---------+ + + + | Glucose, | 137 (H) | 70 - 109 mg/dL | [facility] | | | POC | | | [facility] | | | | | | MEDICAL [...] [address] | [place] | [phone] | | [facility] | | [address] | | | - LABORATORY | | | | + + + + + Coronavirus (COVID-19) NAAT (12/31/2019 7:55 AM PDT)Only the most recent of 2 results with in the time period is included. + + [...] + + | Performed at: 01 - [facility] [address] [facility] [place], [place] | REFERENCE LAB | | [id number] Team Assembler: Dat Lan MD, Phone: [phone] | [facility] | + + + + + + + + | Performing | Address | City/State/Zipcode | Phone Number | | Organization | | | | + + + + + | REFERENCE LAB | [address] | [place], [place] | [phone] | | [facility] | [place] | [address] | | + + + + + [...] - 1.030 | [facility] | | | [place], | | | [facility] | | [...] | | Comment | Indicated | | [facility] | | | [...] + | [facility] | [address] | [place] | [phone] | | [facility] | | [address] | | | - LABORATORY | | [...] | | Neutrophils | | K/uL | [facility] | | | | | | MEDICAL | | | | | | CENTER - | | | | | | LABORATORY | | + + + + + + | Absolute | 1.59 | 0.60 - 3.20 | [facility] | | | Lymphocytes | | K/uL | [facility] | | | | | | MEDICAL | | | | | | CENTER - | | | | | | LABORATORY | | + + + + + + | Absolute | 0.49 | 0.00 - 1.00 | [facility] | | | Monocytes | | K/uL | [facility] | | | | | | MEDICAL | | | | | | CENTER - | | | | | | LABORATORY | | + + + + + + | Absolute | 0.01 | 0.00 - 0.40 | [facility] | | | Eosinophils | | K/uL | [facility] | | | | | | MEDICAL | | | | | | CENTER - | | | | | | LABORATORY | | + + + + + + | Absolute | 0.02 | 0.00 - 0.10 | [facility] | | | Basophils | | K/uL | [facility] | [...] [address] | [place] | [phone] | | [facility] | | [address] | | | - LABORATORY | | | | + + + + + Basic Metabolic Panel (12/26/2019 2:05 PM PDT)Only the most recent of 3 results within the time period is included. [...] 16 | 9 - 23 mg/dL | [facility] | | | | | | [facility] | | | | | | MEDICAL | | | | | | CENTER - | | | | | | LABORATORY | | + + + + + + | Creatinine | 0.96 | 0.70 - 1.30 | [facility] | | | | | mg/dL | [facility] | | | | | | MEDICAL | | | | | | CENTER - | | | | | | LABORATORY | | + + + + + + | eGFR, | >60Comment: GLOMERULAR | >=60 | [facility] | | | non- | FILTRATION | mL/min/1.73m2 | [facility] | | | Togolese | RATE,ESTIMATED | | MEDICAL | | | | mL/min/1.69v6Ddys than | | CENTER - | | [...] | | | | | mg/dL | [facility] | | | | | | MEDICAL [...] [address] | [place] | [phone] | | [facility] | | [address] | | | - LABORATORY | | | | + + + + + IMAGING REPORT - EXTERNAL SCAN (12/20/2019 12:00 AM PDT)Only the most recent of 2 results w ithin the time period is included. + + + | Narrative | Performed At | + + + | Ordered by an | | | unspecified provider. | | + + + CT Abdomen Pelvis w Contrast (12/20/2019 12:00 [...] + +---------+ + + CBC no Differential (12/16/2019 5:22 AM PDT)Only [...] | | | | | g/dL | . [facility] | | | | [...] | | Count | | | [facility] | | [...] | | | | | WBCs | [facility] | | | | [...] [address] | [place] | [phone] | | [facility] | | [address] | | | - LABORATORY | | | | + + + + + Uric Acid (12/16/2019 5:22 AM PDT) + +-------+ + + + | Component | Value | Ref Range | Performed | Pathologist | | | | | At | Signature | + +-------+ + + + | Uric Acid | 5.8 | 3.7 - 9.2 mg/dL | [facility] | | | | | | [facility] [...] | + + + + + | [facility] | [address] | [place] | [phone] | | [facility] | | [address] | | | - LABORATORY | | | | + + + + + BABAR Wiseman-Kendrick Statsanam No Charge (12/15/2019 6:58 PM PDT) + [...] medication documentation. | | + + + CT Abdomen Pelvis wo [...] + +--------+ | MEDICARE | MEDICA | [id number] | 12/20/18 | [phone] | | Medica | | | RE | | 98-Pre | 5 | | re | | | PART A | | sent | | | | | | AND B | | | | | | + +--------+ +--------+ + +--------+ | MEDICARE | MEDICA | [id number] | 12/20/18 | [phone] | | Medica | | | RE | | 98-Pre | 5 | | re | | | PART A | | sent | | | | | | AND B | | | | | | + +--------+ +--------+ + +--------+ | MODA | MODA | [id number] | 06/22/19 | [phone] | [address] | Indemn | | | HEALTH | | 19-Pre | 9 | [phone] | ity | | | MDCR | | sent | | [place], | | | | [place] | | | | [place] [address] | | + +--------+ +--------+ + +--------+ | MODA | MODA | [id number] | 08/21/19 | [phone] | [address] | Indemn | | | HEALTH | | 08-Pre | 9 | [phone] | ity | | | MDCR | | sent | | [place], | | | | [place] | | | | [place] [address] | | + +--------+ +--------+ + +--------+ [...] Self | [birth year] | [address] | | [place] | al/Fam | | 1935 | [phone] | [address] [place], | | | mal[place] | | | [address] (Home) | [place] [address] | + +--------+ +--------+ + + | ThuyRon | Person | Self | [birth year] | | [address] | | [place] | al/Fam | | 1935 | [phone] | [address] [place], | | | [place] | | | [address] (Home) | [place] [address] | + +--------+ +--------+ + + Advance Directives + + + + + | Type | Date Recorded | Patient | Explanation | | | | 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
--- OUTSIDE RECORDS SUMMARY | ~2020-01-23 | XMS | Encounter Summary ---
Demographics + + + | Address | [address] | | | [place] [address] | + + + | Home Phone | | + + + | Preferred Language | Unknown | + + + | Marital Status | | + + + | Amish Affiliation | 1013 | + + + | Race | Unknown | + + + | Ethnic Group | Unknown | + + + Author + + + | Author | [facility] | | | and [place] | + + + | Organization | [facility] | | [...] | | | | | [place] [address] | | + + + + + | Melissa Daley | ECON | [address] | | | | | [place] [address] | | + + + + + Care Team Providers + +------+ + | Care Vp Production Name | Role | Phone | + [...] | | | | | [address] | [place], [place] | | | | | [place], [place] | [address] | | | | | [address] | [phone] | | | | | [phone] | | | +--------+ + + + [...] +----+---+ + + | | 1 | [place] | | | | 8 | 43-degrees [...] +----+---+ + + | | 1 | [place] off | | | | 8 | [...] EVALUATION Ron Daley 84 y.o. male 1935 [id number] Procedure(s) CYSTOSCOPY PLACEMENT URETERAL STENT (Left Ureter) [...] Pietro Tang MD 12/15/2019 9:48 PM PDT [facility] nesthesia Procedure Notes - Pietro Tang [...] EVALUATION Ron Shaht 84 y.o. male 1935 [id number] Procedure(s): CYSTOSCOPY PLACEMENT URETERAL STENT (Left Ureter) [...]
--- OUTSIDE RECORDS SUMMARY | ~2020-01-23 | XMS | Encounter Summary ---
Demographics + + + | Address | [address] | | | [place] [address] | + + + | Home Phone | | + + + | Preferred Language | Unknown | + + + | Marital Status | | + + + | Orthodox Affiliation | 1013 | + + [...] | | | | | [place] [address] | | + + + + + | Melissa Daley | ECON | [address] | | | | | [place] [address] | | + + + + + Care Team Providers + +------+ + | Care Farrowing Manager Name | Role | Phone | [...] 2019 | | [address] | [place] | | | | | [place] | | | | | | [address] | | | | | | [phone] | | | +--------+ + + + [...] [place] | | | | | | [address] | | | | | | | | +--------+---------+ + + + documented as of this encounter Visit Diagnoses Not on filedocumented in this encounter"
--- OUTSIDE RECORDS SUMMARY | ~2020-01-23 | XMS | Encounter Summary ---
Demographics + + + | Address | [address] | | | [place] [address] | + + + | Home Phone [...] | | | | | [place] [address] | | + + + + + | Melissa Daley | ECON | [address] | | | | | [place] [address] | | + + + + + Care Team Providers + +------+ + | Care Building Contractor Name | Role | Phone | + +------+ + | Jona Deal MD | PCP | | + +------+ + Encounter Details +--------+ + + + + | Date | Type | Department | Care Team | Description | +--------+ + + + + | 06/01/ | Abstract | [facility] | Alex Nam | | | 2017 | | SURGERY [address] | MD Malaika, FACS [address] | [address] [place] | [address] [facility] | | | | | [address] | [place] [address] | | | | | [phone] | [phone] | | | | | | | [...] and Digit waveform s on 05/05/[address] [facility] surgical training specialist. RIGHT: 1.12 LEFT 1.19 NOTES: Bilateral [...] [place] | | | | | | [id number] | | | | | | | | +--------+---------+ + + + documented as of this encounter Visit Diagnoses Not on filedocumented in this encounter"
--- OUTSIDE RECORDS SUMMARY | ~2020-01-23 | XMS | Encounter Summary ---
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 aerotriangulation specialist. NOTES: Bilateral waveforms and numeric values [...] | | | | | [place] | | | | | | [id number] | | | | | | | [...]
--- OUTSIDE RECORDS SUMMARY | ~2020-01-23 | XMS | Encounter Summary ---
Demographics + + + | Address | [address] | | | [place] [address] | + + + | Home Phone | | + + + | Preferred Language | Unknown | + + + | Marital Status | | + + + | Christianity Affiliation | 1013 | + + + | Race | Unknown | + + + | Ethnic Group | Unknown | + + + Author + + + | Author | [facility] | | | and [place] | + + + | Organization | [facility] | [...] | | | | | [place] [address] | | + + + + + | Melissa Daley | ECON | [address] | | | | | [place] [address] | | + + + + + Care Team Providers + +------+ + | Care Tire Wrapper Name | Role | Phone | + [...] | | | | | origin | [address] | [place], | | | | | | [place] | [address] | | | | | | [place], | [facility] [place] | | | | | | [place] | [address] Phone: | | | | | | [address] | [phone] | | | | | | Phone: | Fax: | | | | | | [phone] | [phone] | | | | | | Fax: | | | | | | | [phone] | | +--------+--------+ + + + + [...] | [address], | [place] [address] | | | | | [place] [address] | [phone] | | | | | [phone] | | | +--------+---------+ + + + [...] [place] | | | | | | [address] | | | | | | | | +--------+---------+ + + + documented as of this encounter Visit Diagnoses + + | Diagnosis | + + | Sleepiness - Primary Other alteration of consciousness | + + documented in this encounter"
--- OUTSIDE RECORDS SUMMARY | ~2020-01-23 | XMS | Encounter Summary ---
Demographics + + + | Address | [address] | | | [place] [address] | + + + | Home Phone [...] | | | | | [place] [address] | | + + + + + | Melissa Daley | ECON | [address] | | | | | [place] [address] | | + + + + + Care Team Providers + +------+ + | Care Clinical Tech Name | Role | Phone | + +------+ + | Bunny Corcoran | PCP | | | MD | | | + +------+ + Encounter Details +--------+ + + + + | Date | Type | Department | Care Team | Description | +--------+ + + + + | 01/10/ | Hospital | [facility] | Kiko Garrido, | Left ureteral | | 2020 | Encounter | [facility] | [address] | calculus | | | | [address] [place] | [place], [place] | | | | | [place], [place] | [address] | | | | | [address] | | | | | | [phone] | | | +--------+ + + + [...] [place] | | | | | | [address] | | | | | | | [...] Procedure Note | + + | Dante, [id number] - 01/11/2020 9:32 AM PDT XR ABDOMEN [...]
--- OUTSIDE RECORDS SUMMARY | ~2020-01-23 | XMS | Encounter Summary ---
Demographics + + + | Address | [address] | | | [place] [address] | + + + | Home Phone [...] | | | | | [place] [address] | | + + + + + | Melissa Daley | ECON | [address] | | | | | [place] [address] | | + + + + + Care Team Providers + +------+ + | Care Supervisor Paint Roller Covers Name | Role | Phone | + [...] [place] | | | | | [place] | | [address] Phone: | | | | | CYSTO/URETER | | [phone] | | | | | O | | Fax: | | | | | W/LITHOTRIPS | | [phone] | | | | | Y &LIZ [...] | | | | | [address] | [facility] | | | | | [place] | [place] [address] | | | | | [address] | [phone] | | | | | [phone] | | | +--------+ + + + [...] +----+---+ + + | | 1 | [place] | | | | 4 | 43-degrees [...] +----+---+ + + | | 1 | [place] off | | | | 5 | [...] 01/04/201924 by Jamel | | eral | lgzt-hfw-nmgjca catheter system; | Brandi Eisenberg RN | [...] EVALUATION Ron Daley 84 y.o. male 1935 [id number] Procedure(s) CYSTOSCOPY LEFT URETEROSCOPY W/ LASER LITHOTRIPSY, [...] Jaylan Pérez DO 01/05/2020 3:01 PM PDT [facility] nesthesia Procedure Notes - Jaylan Pérez DO [...] EVALUATION Ron Jacksonhart 84 y.o. male 1935 [id number] Procedure(s): CYSTOSCOPY LEFT URETEROSCOPY W/ LASER LITHOTRIPSY, [...] ECGs available Confirmed by LILLIAN PEARSON MD ([id number]) on 12/16/2019 5:55:20 AM". Exercise tolerance >4 [...] NOTE Ron Daley 84 y.o. male 1935 [id number] CYSTOSCOPY LEFT URETEROSCOPY W/ LASER LITHOTRIPSY, LEFT [...] Jaylan Pérez DO 01/04/2020 3:49 PM PDT [facility] documented in this encounter Plan of Treatment [...]
--- OUTSIDE RECORDS SUMMARY | ~2020-01-23 | XMS | Encounter Summary ---
Demographics + + + | Address | [address] | | | [place] [address] | + + + | Home Phone | | + + + | Preferred Language | Unknown | + + + | Marital Status | | + + + | Shinto Affiliation | 1013 | + + + | Race | Unknown | + + + | Ethnic Group | Unknown | + + + Author + + + | Author | [facility] | | | and [place] | + + + | Organization | [facility] | | | [...] | | | | | [place] [address] | | + + + + + | Melissa Daley | ECON | [address] | | | | | [place] [address] | | + + + + + Care Team Providers + +------+ + | Care Ceramic Restorer Name | Role | Phone | + [...] | | | | | | [place] [address] | | | | | | | Phone: | | | | | | | [phone] | | | | | | | Fax: | | | | | | | [phone] | +--------+--------+ + + + + Encounter Details +--------+---------+ + + + | Date | Type | Department | Care Team | Description | +--------+---------+ + + + | 03/05/ | Office | [facility] | Donnie Palacios, | Primary | | 2017 | Visit | ORTHOPEDIC SURGERY | MD Jorge [address] | 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
--- OUTSIDE RECORDS SUMMARY | ~2020-01-23 | XMS | Encounter Summary ---
Demographics + + + | Address | [address] | | | [place] [address] | + + + | Home Phone [...] | | | | | [place] [address] | | + + + + + | Melissa Daley | ECON | [address] | | | | | [place] [address] | | + + + + + Care Team Providers + +------+ + | Care Mini Shifter Name | Role | Phone | + [...] Penny MD | | | | | [place], | | | | | | [place] [address] | | | | | | [phone] | | | +--------+--------+ + + + [...] | | | | | [place] | | | | | | [id number] | | | | | | | [...]
--- OUTSIDE RECORDS SUMMARY | ~2020-01-23 | XMS | Encounter Summary ---
Demographics + + + | Address | [address] | | | [place] [address] | + + + | Home Phone [...] | | | | | [place] [address] | | + + + + + | Melissa Daley | ECON | [address] | | | | | [place] [address] | | + + + + + Care Team Providers + +------+ + | Care Tiler'S Assistant Name | Role | Phone | [...] | | BOOP | [place], | [address] | | | | | (bronchiolit | Carmelita B, | [place], | | | | | is | MD [address] | [place] [address] | | | | | obliterans | [address] | Phone: | | | | | with | [place], | [phone] | | | | | organizing | [place] [address] | Fax: | | | | | pneumonia) | | [phone] | | | | | (HCC) | [...] + + | 01/12/ | [facility] | [place], | BOOP (bronchiolitis | | 2013 | Visit | PULMONARY [address] | Carmelita Penny MD | obliterans with | | | | [place], | | organizing | | | | [place] [address] | | pneumonia) ([facility]) | | | | [phone] | | (Primary Dx); Sleep | | | | | | related | | | | | | hypoventilation/hypo | | | | | | xemia in conditions | | | | | | classifiable | | | | | | elsewhere; DM type 2 | | | | | | (diabetes mellitus, | | | | | | type 2) ([facility]); | | | | | | Sleepiness [...] DM type 2 (diabetes mellitus, type 2) ([facility]) - Off of metformin and with good [...] made to ensure accuracy; however, inadvertent computerized rn mental health errors may be pre sent. Electronically signed by: Carmelita Mckeon MD 01/12/2014 10:26 documented in t his encounter Miscellaneous Notes Miscellaneous - [facility] - 01/12/2014 12:00 AM PDT documented in [...] | | | Average | | | [facility] | | | Glucose | | [...] + | [facility] | [address] | [place] | [phone] | | [facility] | | [address] | | | - LABORATORY | | | | + + + + + | [facility] | [address] | [place], [place] | | | [facility] | | [address] | | | [...] CT chest dated May 17, 2012 from [facility] | | | [facility]. 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
--- OUTSIDE RECORDS SUMMARY | ~2020-01-23 | XMS | Encounter Summary ---
Demographics + + + | Address | [address] | | | [place] [address] | + + + | Home Phone [...] | | | | | [place] [address] | | + + + + + | Melissa Daley | ECON | [address] | | | | | [place] [address] | | + + + + + Care Team Providers + +------+ + | Care Pt Escort Name | Role | Phone | + [...] + + | 12/25/ | Office | [facility] | Kiko Garrido, | Left ureteral | | 2020 | Visit | [address] | MD [address] | calculus (Primary | | | | [place] | [place] | Dx); Stage 3 chronic | | | | [address] | [address] | kidney disease | | | | [phone] | | ([facility]); Pre-operative | | | | [...] January 04, 2020 at 1:30 PM at [facility]. Please report to the Surgery and [...] the Dr mccray testing site on the [facility] (the [facility]) at [address] [place] [address] in [place]. You will need to go and do this on Thursday, December 31, 2019 at 7:00 AM. Once you have had the testing done, you will need to qu arantine yourself at home until after your surgery (see Home quarantine guidance sheet). You will also need to get the following tests done prior to surgery: CBC, BMP, UA. Please call the Pre-operative Clinic at [phone] to schedule that testing. YOU WILL NEED TO BRING A SEMICONDUCTOR WAFER INSPECTOR WITH YOU THE DAY OF SURGERY. Call us at [phone] with any questions. [x] Pain management booklet [...] have swelling or redness around your incision [employer] last reviewed this educational content on 07/23/201619990329-4428 The [employer]. [address] [place] [address]. All righ ts reserved. This information is [...] up for nephrolithiasis. Ron was transferred from [facility] on 12/15/2019 with an obstructive proxima [...] recently seen in the emergency department at [facility] on 12/20/2019 with compla ints of [...] 12/26/2019 KUB 12/22/2019: CT imaging 12/20/2019 at [facility] demonstrates "moderate left hydronephrosis and prox imal [...] surgical procedure and anesthesia including DVT, PE, IA, CVA, and even . Ron indicates his [...] This document was generated in part using [employer]. Sometimes wrong word or sound-alike sub stitutions [...] | | | | | [place] | | | | | | [address] | | | | | | | [...] + + | Performed at: 01 - [employer] [place] [address] [facility] [place] | REFERENCE LAB | | [id number] Historiographer: Dat Lan MD, Phone: [phone] | [facility] | + + + + + + + + | Performing | Address | City/State/Zipcode | Phone Number | | Organization | | | | + + + + + | REFERENCE LAB | [address] | [place], [place] | [phone] | | [facility] | [facility] | [address] | | + + + + + [...] - 1.030 | [facility] | | | [place], | | | [facility] | | [...] [address] | [place] | [phone] | | [facility] | | [address] | | | - LABORATORY | | [...] (H) | 60 - 106 mg/dL | [facility] | | | | | | [facility] | | | | | | MEDICAL | | | | | | CENTER - | | | | | | LABORATORY | | + + + + + + | BUN | 16 | 9 - 23 mg/dL | [facility] | | | | | | [facility] | | | | | | MEDICAL | | | | | | CENTER - | | | | | | LABORATORY | | + + + + + + | Creatinine | 0.96 | 0.70 - 1.30 | [facility] | | | | | mg/dL | [facility] | | | | | | MEDICAL | | | | | | CENTER - | | | | | | LABORATORY | | + + + + + + | eGFR, | >60Comment: GLOMERULAR | >=60 | [facility] | | | non- | FILTRATION | mL/min/1.73m2 | [facility] | | | [place]utanese | RATE,ESTIMATED | | MEDICAL | | | | mL/min/1.20s4Weuf than | | CENTER - | | [...] + | [facility] | [address] | [place] | [phone] | | [facility] | | [address] | | | - LABORATORY | | [...] [address] | [place] | [phone] | | [facility] | | [address] | | | - LABORATORY | | [...]
--- OUTSIDE RECORDS SUMMARY | ~2020-01-23 | XMS | Encounter Summary ---
Demographics + + + | Address | [address] | | | [place] [address] | + + + | Home Phone [...] | | | | | [place] [address] | | + + + + + | Melissa Sheldon | ECON | [address] | | | | | [place] [address] | | + + + + + Care Team Providers + +------+ + | Care Source Inspector Name | Role | Phone | + +------+ + | Jona Deal MD | PCP | | + +------+ + Encounter Details +--------+ + + + + | Date | Type | Department | Care Team | Description | +--------+ + + + + | 07/26/ | Hospital | [facility] | [place], | BOOP (bronchiolitis | | 2014 | Encounter | MED CTR XRAY [address] | Carmelita Penny MD | obliterans with | | | | [place] | | organizing | | | | [place] [address] | | pneumonia) (HCC) | | | | [phone] | | | +--------+ + + + [...] [place] | | | | | | [address] | | | | | | | [...] At | + + + | [facility] | [place] | | Department [address] [place] | [facility] | | [ rep ct street1+2] [ rep ct [facility] | | st [facility]] Signed | - IMAGING | | | | | Patient Name: RON SHELDON V Physician: | | | OFFE. : 1935 Age: 78 Sex: M Unit #: [id number] | | | Exam Date: 07/26/13 Location: [facility] | | | Report #: [id number] Page: | | | %(RAD)RES..mtdd.print.filter("pg") of %(RAD) | | | RES..mtdd.print.filter("tpg") | | | | | | Accession Number: [id number] | | | CHEST, PA AND LATERAL, [...] Transcribed Date/Time: 07/26/2013 16:02 | | | Store Shopper: <<Signature on File>> | | | | | | Kiko Hair MD07/26/13 1931 <Electronically signed by Kiko | | | Melina Hair MD> Kiko Hair MD 07/26/13 1432 | | | Store Shopper: [employer] Thlfnppnbevkd70/04/14 1602 | | | Carmelita Mckeon MD | | + + + + + + + + | Performing | Address | City/State/Zipcode | Phone Number | | Organization | | | | + + + + + | [facility] | [address] 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
--- OUTSIDE RECORDS SUMMARY | ~2020-01-23 | XMS | Encounter Summary ---
Demographics + + + | Address | [address] | | | [place] [address] | + + + | Home Phone [...] | Author | [facility] | | | and [place] | + + + | Organization | [facility] | | | [...] | | | | | [place] [address] | | + + + + + | Melissa Daley | ECON | [address] | | | | | [place] [address] | | + + + + + Care Team Providers + +------+ + | Care Fixed Income Analyst Name | Role | Phone | + +------+ + PCP | Unavailable | + +------+ + Encounter Details +--------+ + + + + | Date | Type | Department | Care Team | Description | +--------+ + + + + | 05/31/ | Hospital | [facility] | | | | 2000 - | Encounter | MED CTR GENERIC IP | | | | | | CONV DEPT [address] | | | | 06/02/ | | Protection [place], | | | | 2000 | | [place] [address] | | | | | | [phone] | | | +--------+ + + + [...] [place] | | | | | | [id number] | | | | | | | | +--------+---------+ + + + documented as of this encounter Visit Diagnoses Not on filedocumented in this encounter"
--- OUTSIDE RECORDS SUMMARY | ~2020-01-23 | XMS | Encounter Summary ---
Demographics + + + | Address | [address] | | | [place] [address] | + + + | Home Phone [...] | | | | | [place] [address] | | + + + + + | Melissa Sheldon | ECON | [address] | | | | | [place] [address] | | + + + + + Care Team Providers + +------+ + | Care Mohel Name | Role | Phone | + +------+ + | Jona Deal MD | PCP | | + +------+ + Encounter Details +--------+ + + + + | Date | Type | Department | Care Team | Description | +--------+ + + + + | 09/29/ | Hospital | [facility] | [place], | BOOP (bronchiolitis | | 2012 - | Encounter | MED CTR XRAY [address] | Carmelita Penny MD | obliterans with | | | | [place] | | organizing | | 10/01/ | | [place] [address] | | pneumonia) (HCC) | | 2012 | | [phone] | | | +--------+ + + + [...] [place] | | | | | | [address] | | | | | | | [...] At | + + + | [facility] | VOCA | | Department [address] [place] [address] | [facility] | | [ rep ct street1+2] [ rep [facility] | | st zip] Signed | - IMAGING | | | | | Patient Name: RON SHELDON V Physician: | | | DOROTEOAna Luisa : 1935 Age: 77 Sex: M Unit #: [id number] | | | Exam Date: 09/29/12 Location: [facility] | | | Report #: [id number] Page: | | | %(RAD)RES..mtdd.print.filter("pg") of %(RAD) | | | RES..mtdd.print.filter("tpg") | | | | | | Accession Number: [id number] | | | CHEST, PA AND LATERAL, [...] | | | Transcribed Date/Time: 09/29/2012 12:33 Credit Clerk: | | | <<Signature on File>> | | | Mart | | | MD [place]09/29/12 1551 <Electronically signed by Mart Boyle MD> | | | Mart Boyle MD 09/29/12 1227 Credit Clerk: [employer] | | | Yymympkowhwea82/10/13 1233 Carmelita Mckeon MD | | | | | + + + + + + + + | Performing | Address | City/State/Zipcode | Phone Number | | Organization | | | | + + + + + | [facility] | [address] 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
--- OUTSIDE RECORDS SUMMARY | ~2020-01-23 | XMS | Clinical Summary ---
Demographics + + + | Address | [address] | | | [place] [address] | + + + | Home Phone [...] | | | | | [place] [address] | | + + + + + | Melissa Daley | ECON | [address] | | | | | [place] [address] | | + + + + + Care Team Providers + +------+ + | Care Keyliner Name | Role | Phone | + [...] automatically from request for surgery | | [id number] | + + + + + | [...] | | | 2019 | | | CONTROLLER MECHANIC | | +--------+ + + + + [...] | | | 2019 | | | CONTROLLER MECHANIC | | +--------+ + + + + [...] | + + + + | INFLUENZA, [id number], | 06/18/2009 | | | UNSPECIFIED | [...] [place] | | | | | | [address] | | | | | | | [...] | ABILIO KNOX | | 09/20/ | [id number] | | - Sn/AImplanted: Qty: 1 on | | Ureter | INCORPORATE | | 2022 | /N/A | | 12/15/2019 by Kiko Garrido | | | D | | | /[id number] | | MD Patricia at [facility] | | | | | | 447 | | [facility] | | | | | | | + +-------+--------+ +--------+--------+--------+ | Stent Uro Unvrs Sft 7fr 28cm | Stent | Left: | ABILIO KNOX | | 09/01/ | [id number] | | - SnaImplanted: Qty: 1 on | | Ureter | INCORPORATE | | 2022 | /NA | | 01/04/2020 by Kiko Garrido | | | Brijesh | | | /[id number] | | MD Patricia at [facility] | | | | | | 318 | | [facility] | | | | | [...] Procedure Note | + + | Dante, [id number] - 01/11/2020 9:32 AM PDT XR ABDOMEN [...] | | | | LILLIAN PEARSON MD ([id number]) | | | | | | on [...] Procedure Note | + + | Dante, [id number] - 01/04/2020 8:39 PM PDT | | [...] At | + + + | Jaylan Pérze DO 01/04/2020 2:25 PM Anesthesia Airway | [...] | | POC | | | [facility] | | [...] [address] | [place] | [phone] | | [facility] | | [address] | | | - LABORATORY | | [...] + + | Performed at: 01 - [facility] [address] [facility] [place], [place] | REFERENCE LAB | | [id number] Joiner: Dat Lan MD, Phone: [phone] | [facility] | + + + + + + + + | Performing | Address | City/State/Zipcode | Phone Number | | Organization | | | | + + + + + | REFERENCE LAB | [address] | [place], [place] | [phone] | | [facility] | [place] | [address] | | + + + + + [...] - 1.030 | [facility] | | | [place], | | | [facility] | | [...] + | [facility] | [address] | [place] | [phone] | | [facility] | | [address] | | | - LABORATORY | | [...] | | Granulocyte | | | [facility] | | | s | | | [...] [address] | [place] | [phone] | | [facility] | | [address] | | | - LABORATORY | | [...] | | | | | mg/dL | [facility] | | | | | | MEDICAL | | | | | | CENTER - | | | | | | LABORATORY | | + + + + + + | eGFR, | >60Comment: GLOMERULAR | >=60 | [facility] | | | non- | FILTRATION | mL/min/1.73m2 | [facility] | | | Maltese | RATE,ESTIMATED | | MEDICAL | | | | mL/min/1.87o9Cdnk than | | CENTER - | | [...] | | | | | mg/dL | [facility] | | | | | | MEDICAL [...] [address] | [place] | [phone] | | [facility] | | [address] | | | - LABORATORY | | [...] [address] | [place] | [phone] | | [facility] | | [address] | | | - LABORATORY | | [...] + | [facility] | [address] | [place] | [phone] | | [facility] | | [address] | | | - LABORATORY | | [...] + +--------+ | MEDICARE | MEDICA | [id number] | 12/20/18 | [phone] | | Medica | | | RE | | 98-Pre | 5 | | re | | | PART A | | sent | | | | | | AND B | | | | | | + +--------+ +--------+ + +--------+ | MEDICARE | MEDICA | [id number] | 12/20/18 | [phone] | | Medica | | | RE | | 98-Pre | 5 | | re | | | PART A | | sent | | | | | | AND B | | | | | | + +--------+ +--------+ + +--------+ | MODA | MODA | [id number] | 06/22/19 | [phone] | [address] | Indemn | | | HEALTH | | 19-Pre | 9 | [address] | ity | | | MDCR | | sent | | [place] | | | | [place] | | | | [place] [address] | | + +--------+ +--------+ + +--------+ | MODA | MODA | [id number] | 08/21/19 | [phone] | [address] | Indemn | | | HEALTH | | 08-Pre | 9 | [address] | ity | | | MDCR | | sent | | [place] | | | | [place] | | | | [place] [address] | | + +--------+ +--------+ + +--------+ [...] | | [address] | | [place] | al/Fam | | 1935 | [phone] | [address] [place], | | | mal[place] | | | 6 (Home) | [place] [address] | + +--------+ +--------+ + + | ThuyRon | Person | Self | [birth year] | | [address] | | [place] | al/Fam | | 1935 | [phone] | [address] [place], | | | mal[place] | | | 6 (Home) | [place] [address] | + +--------+ +--------+ + + Advance Directives + + + + + | Type | Date Recorded | Patient | Explanation | | | | Teaching Aide | | + + + + + | Power of | | | | | Corporate Driver | | | | + + + [...]
--- OUTSIDE RECORDS SUMMARY | ~2020-01-23 | XMS | Encounter Summary ---
Demographics + + + | Address | [address] | | | [place] [address] | + + + | Home Phone [...] | | | | | [place] [address] | | + + + + + | Melissa Sheldon | ECON | [address] | | | | | [place] [address] | | + + + + + Care Team Providers + +------+ + | Care Virtual Assistant For Advertisers Name | Role | Phone | + +------+ + | Jona Deal MD | PCP | | + +------+ + Encounter Details +--------+ + + + + | Date | Type | Department | Care Team | Description | +--------+ + + + + | 04/01/ | Hospital | [facility] | [place], | BOOP (bronchiolitis | | 2013 | Encounter | MED CTR XRAY [address] | Carmelita Penny MD | obliterans with | | | | [place] | | organizing | | | | [place] [address] | | pneumonia) (HCC) | | | | [phone] | | | +--------+ + + + [...] [place] | | | | | | [address] | | | | | | | [...] | [facility] | [place] | | Department [address] [facility] | [facility] | | [ rep ct street1+2] [ rep [facility] | | st zip] Signed | - IMAGING | | | | | Patient Name: RON SHELDON V Physician: | | | DOROTEO. : 1935 Age: 78 Sex: M Unit #: [id number] | | | Exam Date: 04/01/13 Location: [facility] | | | Report #: [id number] Page: | | | %(RAD)RES..mtdd.print.filter("pg") of %(RAD) | | | RES..mtdd.print.filter("tpg") | | | | | | Accession Number: [id number] | | | CHEST X-RAY CLINICAL HISTORY: [...] | | | Transcribed Date/Time: 04/01/2013 13:30 Livestock Yard Supervisor: | | | <<Signature on File>> | | | Mart | | | MD [place]04/01/13 3235 <Electronically signed by Mart oByle MD> | | | Mart Boyle MD 04/01/13 1307 [employer]estock [employer] Supervisor: [email or web address] | | | Gmkulpzbrmyku83/11/13 3188 Carmelita Mckeon MD | | | | | + + + + + + + + | Performing | Address | City/State/Zipcode | Phone Number | | Organization | | | | + + + + + | [facility] | [address] 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
--- OUTSIDE RECORDS SUMMARY | ~2020-01-23 | XMS | Encounter Summary ---
Demographics + + + | Address | [address] | | | [place] [address] | + + + | Home Phone | | + + + | Preferred Language | Unknown | + + + | Marital Status | | + + + | Sikhism Affiliation | 1013 | + + + | Race | Unknown | + + + | Ethnic Group | Unknown | + + + Author + + + | Author | [facility] | | | and [place] | + + + | Organization | [facility] | | [...] | | | | | [place] [address] | | + + + + + | Melissa Daley | ECON | [address] | | | | | [place] [address] | | + + + + + Care Team Providers + +------+ + | Care Washcoat Wiper Name | Role | Phone | + +------+ + PCP | Unavailable | + +------+ + Encounter Details +--------+ + + + + | Date | Type | Department | Care Team | Description | +--------+ + + + + | 05/27/ | Hospital | [facility] | | | | 2000 | Encounter | MED CTR GENERIC OP | | | | | | CONV DEPT [address] | | | | | | [place], | | | | | | [place] [address] | | | | | | [phone] | | | +--------+ + + + [...]
--- OUTSIDE RECORDS SUMMARY | ~2020-01-23 | XMS | Encounter Summary ---
Demographics + + + | Address | [address] | | | [place] [address] | + + + | Home Phone [...] | | | | | [place] [address] | | + + + + + | Melissa Daley | ECON | [address] | | | | | [place] [address] | | + + + + + Care Team Providers + +------+ + | Care Waiter Waitress Name | Role | Phone | + +------+ + PCP | Unavailable | + +------+ + Encounter Details +--------+ + + + + | Date | Type | Department | Care Team | Description | +--------+ + + + + | 10/18/ | Hospital | [facility] | Unknown, | | | 1992 | Encounter | MED CTR XRAY [address] | [place] . | | | | | [place] | | | | | | [place] [address] | (Fax) | | | | | [phone] | | | +--------+ + + + [...] [place] | | | | | | [id number] | | | | | | | | +--------+---------+ + + + documented as of this encounter Visit Diagnoses Not on filedocumented in this encounter"
--- OUTSIDE RECORDS SUMMARY | ~2020-01-23 | XMS | Encounter Summary ---
Demographics + + + | Address | [address] | | | [place] [address] | + + + | Home Phone [...] | | | | | [place] [address] | | + + + + + | Melissa Daley | ECON | [address] | | | | | [place] [address] | | + + + + + Care Team Providers + +------+ + | Care Human Resources Operations Coordinator Name | Role | Phone | [...] | | BOOP | [place], | [address] | | | | | (bronchiolit | Carmelita B, | [place], | | | | | is | MD [address] | [place] [address] | | | | | obliterans | [address] | Phone: | | | | | with | [place], | [phone] | | | | | organizing | [place] [address] | Fax: | | | | | pneumonia) | | [phone] | | | | | (HCC) | [...] + + | 01/12/ | [facility] | [facility] | [place], | BOOP (bronchiolitis | | 2013 | Visit | PULMONARY [address] | Carmelita Penny MD | obliterans with | | | | [address] [place], | | organizing | | | | [place] [address] | | pneumonia) ([facility]) | | | | [phone] | | (Primary Dx); Sleep | | | | | | related | | | | | | hypoventilation/hypo | | | | | | xemia in conditions | | | | | | classifiable | | | | | | elsewhere; DM type 2 | | | | | | (diabetes mellitus, | | | | | | type 2) ([facility]); | | | | | | [...] DM type 2 (diabetes mellitus, type 2) ([facility]) - Off of metformin and with [...] made to ensure accuracy; however, inadvertent computerized web production designer errors may be pre sent. Electronically signed by: Carmelita Mckeon MD 01/12/2014 10:26 documented in t his encounter Miscellaneous Notes Miscellaneous - [facility] - 01/12/2014 12:00 AM PDT documented in [...] + | [facility] | [address] | [place] | [phone] | | [facility] | | [address] | | | - LABORATORY | | | | + + + + + | [facility] | [address] | [place], [place] | | | [facility] | | [id number] | | | - LABORATORY [...] CT chest dated May 17, 2012 from [facility] | | | [facility]. 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) Type II or unspecified type diabetes | | mellitus without mention of complication, not stated as uncontrolled | + + | Sleepiness Other alteration of consciousness | + + documented in this encounter
--- OUTSIDE RECORDS SUMMARY | ~2020-01-23 | XMS | Encounter Summary ---
Demographics + + + | Address | [address] | | | [place] [address] | + + + | Home Phone [...] | | | | | [place] [address] | | + + + + + | Melissa Daley | ECON | [address] | | | | | [place] [address] | | + + + + + Care Team Providers + +------+ + | Care Joiner Name | Role | Phone | + +------+ + | Jona Deal MD | PCP | | + +------+ + Reason for Visit +--------+--------+ + | Reason | Onset | Comments | | | Date | | +--------+--------+ + | Other | 12/13/ | | | | 2011 | | +--------+--------+ + Encounter Details +--------+ + + + + | Date | Type | Department | Care Team | Description | +--------+ + + + + | 06/03/ | Telephone | [facility] | Jared Garcia, | Other | | 2011 | | PULMONARY [address] | RN | | | | | [place], | | | | | | [place] [address] | | | | | | [phone] | | | +--------+ + + + [...] | 01/21/ | Office | Urology | Kiok Garrido, | | | 2020 | Visit | | MD Jorge A [place]Z | | | | | | [place] | | | | | | [id number] | | | | | | | | +--------+---------+ + + + documented as of this encounter Visit Diagnoses Not on filedocumented in this encounter"
--- OUTSIDE RECORDS SUMMARY | ~2020-01-23 | XMS | Encounter Summary ---
Demographics + + + | Address | [address] | | | [place] [address] | + + + | Home Phone [...] | | | | | [place] [address] | | + + + + + | Melissa Daley | ECON | [address] | | | | | [place] [address] | | + + + + + Care Team Providers + +------+ + | Care Coding And Reimbursement Specialist Name | Role | Phone | + +------+ + PCP | Unavailable | + +------+ + Encounter Details +--------+ + + + + | Date | Type | Department | Care Team | Description | +--------+ + + + + | 02/24/ | Hospital | [facility] | Rakesh Ruiz MD | | | 1999 | Encounter | MED CTR GENERIC OP | [address], [place] | | | | | CONV DEPT [address] | [address] [place], [place] | | | | | [place], | [address] | | | | | [place] [address] | | | | | | [phone] | | | +--------+ + + + [...] [place] | | | | | | [address] | | | | | | | | +--------+---------+ + + + documented as of this encounter Visit Diagnoses Not on filedocumented in this encounter"
--- OUTSIDE RECORDS SUMMARY | ~2020-01-23 | XMS | Encounter Summary ---
Demographics + + + | Address | [address] | | | [place] [address] | + + + | Home Phone [...] | | | | | [place] [address] | | + + + + + | Melissa Daley | ECON | [address] | | | | | [place] [address] | | + + + + + Care Team Providers + +------+ + | Care Aluminum Boat Inspector Name | Role | Phone | [...] [place] | | | | | [place] | | [address] Phone: | | | | | CYSTO/URETER | | [phone] | | | | | O | | Fax: | | | | | W/LITHOTRIPS | | [phone] | | | | | Y &LIZ [...] + + | 01/03/ | Surgery | [facility] | Kiko Garrido, | CYSTOSCOPY LEFT | | 2019 | | MED CTR OR INTRA OP | MD Jorge A HENRIQUEZ | URETEROSCOPY W/ | | | | [address] | [place] | LASER LITHOTRIPSY, | | | | [place] | [address] | LEFT URETERAL STENT | | | | [address] | | REPLACEMENT | | | | [phone] | | | +--------+---------+ + + + [...] voiding. Follow up: Call Dr Garrido's office ([phone]) to set up your follow-up appointment or [...] Kiko Garrido MD - 01/04/2020 2:01 [facility] AND PHYSICAL [...] Garrido MD, 01/04/2020 2:01 PM PDT [facility] iko kuo MD - 12/26/2019 1:00 PM PDT HPI Ron Daley is a 84 y.o. male referred by Bunny Corcoran MD Today, 12/26/2019, Ron presents for a follow up for nephrolithiasis. Ron was transferred from [facility] on 12/15/2019 with an obstructive [...] in the emergency department at [facility] on 12/20/2019 with compla ints of constipation. [...] 12/26/2019 KUB 12/22/2019: CT imaging 12/20/2019 at [facility] demonstrates "moderate left hydronephrosis and prox imal [...] surgical procedure and anesthesia including DVT, PE, MO, CVA, and even . Ron indicates his [...] This document was generated in part using [employer]. Sometimes wrong word or sound-alike sub stitutions [...] Daley 84 y.o. 1935 Med. Record Number: [id number] Date of Operation/Procedure: 01/04/2020 Preoperative Diagnosis: 11 mm Left Ureteral calculus Left ureteral obstruction Left hydronephrosis Postoperative Diagnosis: 11 mm Left Ureteral calculus Left ureteral obstruction Left hydronephrosis Surgeon: Kiko Garrido MD Philosophy And Religion Instructor(s): None Anesthesia Provider(s): Anesthesiologist: Jaylan Pérez DO [...] and in a retrograde fashion, a 7- Bahraini X 28 cm double-J stent was placed [...] Kiko Garrido MD, 01/04/2020 3:59 PM PDT [facility] documented in this en counter Plan of Treatment +--------+---------+ + + + | Date | Type | Specialty | Care Team | Description | +--------+---------+ + + + | 01/21/ | Office | Urology | Kiko Garrido, | | | 2020 | Visit | | MD Jorge A HENRIQUEZ | | | | | | [place] | | | | | | [id number] | | | | | | | [...] | | | | LILLIAN PEARSON MD ([id number]) | | | | | | on [...] Procedure Note | + + | Dante, [id number] - 01/04/2020 8:39 PM PDT | | [...] [address] | [place] | [phone] | | [facility] | | [address] | | | - LABORATORY | | [...] One week or | | | longer, izecdn-niu-ggwax use of | | | at least [...] | | | | | | | gbbxyj-qmw-bdlub use of at least | | | [...]
--- OUTSIDE RECORDS SUMMARY | ~2020-01-23 | XMS | Encounter Summary ---
Demographics + + + | Address | [address] | | | [place] [address] | + + + | Home Phone [...] | | | | | [place] [address] | | + + + + + | Melissa Daley | ECON | [address] | | | | | [place] [address] | | + + + + + Care Team Providers + +------+ + | Care Precision Machinist Name | Role | Phone | + [...] | | | [address] | [place] [address] | | | | | [place] [address] | | | | | | [phone] | | | +--------+ + + + [...] [place] | | | | | | [address] | | | | | | | [...]
--- OUTSIDE RECORDS SUMMARY | ~2020-01-23 | XMS | Encounter Summary ---
Demographics + + + | Address | [address] | | | [place] [address] | + + + | Home Phone [...] | | | | | [place] [address] | | + + + + + | Melissa Daley | ECON | [address] | | | | | [place] [address] | | + + + + + Care Team Providers + +------+ + | Care Equipment Man Name | Role | Phone | + [...] | | | | | | [place] [address] | | | | | | [phone] | | | +--------+ + + + [...] [place] | | | | | | [address] | | | | | | | | +--------+---------+ + + + documented as of this encounter Visit Diagnoses Not on filedocumented in this encounter"
--- OUTSIDE RECORDS SUMMARY | ~2020-01-23 | XMS | Encounter Summary ---
Demographics + + + | Address | [address] | | | [place] [address] | + + + | Home Phone [...] | | | | | [place] [address] | | + + + + + | Melissa Sheldon | ECON | [address] | | | | | [place] [address] | | + + + + + Care Team Providers + +------+ + | Care Primer Expeditor And Drier Name | Role | Phone | + +------+ + | Jona Deal MD | PCP | | + +------+ + Encounter Details +--------+ + + + + | Date | Type | Department | Care Team | Description | +--------+ + + + + | 07/26/ | Hospital | [facility] | Offenstein, | BOOP (bronchiolitis | | 2014 | Encounter | MED CTR XRAY [address] | Carmelita Penny MD | obliterans with | | | | [place] | | organizing | | | | [place] [address] | | pneumonia) (HCC) | | | | [phone] | | | +--------+ + + + [...] [place] | | | | | | [address] | | | | | | | [...] Performed At | + + + | [facility] | [place] | | Department [address] [place] | [facility] | | [ rep ct [phone]] [ rep ct [facility] | | [facility]] Signed | - IMAGING | | | | | Patient Name: RON SHELDON V Physician: | | | OFFE. : 1935 Age: 78 Sex: M Unit #: [id number] | | | Exam Date: 07/26/13 Location: [facility] [place] | | | Report #: [id number] Page: | | | %(RAD)RES..mtdd.print.filter("pg") of %(RAD) | | | RES..mtdd.print.filter("tpg") | | | | | | Accession Number: [id number] | | | CHEST, PA AND LATERAL, [...] Transcribed Date/Time: 07/26/2013 16:02 | | | Element Burner: <<Signature on File>> | | | | | | Kiko Hair MD07/26/13 1931 <Electronically signed by Kiko | | | Melina Hair MD> Kiko Hair MD 07/26/13 1432 | | | Element Burner: Kidamom [id number]/04/14 1602 | | | Carmelita Mckeon MD | | + + + + + + + + | Performing | Address | City/State/Zipcode | Phone Number | | Organization | | | | + + + + + | [facility] | [address] 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
--- OUTSIDE RECORDS SUMMARY | ~2020-01-23 | XMS | Encounter Summary ---
Demographics + + + | Address | [address] | | | [place] [address] | + + + | Home Phone | | + + + | Preferred Language | Unknown | + + + | Marital Status | | + + + | Evangelical Affiliation | 1013 | + + + [...] | | | | | [place] [address] | | + + + + + | Melissa Daley | ECON | [address] | | | | | [place] [address] | | + + + + + Care Team Providers + +------+ + | Care Letter Stamping Machine Operator Name | Role | Phone [...] Penny MD | | | | | [place], | | | | | | [place] [address] | | | | | | [phone] | | | +--------+--------+ + + + [...] [place] | | | | | | [id number] | | | | | | | [...]
--- OUTSIDE RECORDS SUMMARY | ~2020-01-23 | XMS | Encounter Summary ---
Demographics + + + | Address | [address] | | | [place] [address] | + + + | Home Phone [...] | | | | | [place] [address] | | + + + + + | Melissa Daley | ECON | [address] | | | | | [place] [address] | | + + + + + Care Team Providers + +------+ + | Care Burlapper Name | Role | Phone | + [...] Penny MD | | | | | [place], | | | | | | [place] [address] | | | | | | [phone] | | | +--------+--------+ + + + [...] | | | | | [place] | | | | | | [id number] | | | | | | | [...]
--- OUTSIDE RECORDS SUMMARY | ~2020-01-23 | XMS | Encounter Summary ---
Demographics + + + | Address | [address] | | | [place] [address] | + + + | Home Phone [...] | | | | | [place] [address] | | + + + + + | Melissa Daley | ECON | [address] | | | | | [place] [address] | | + + + + + Care Team Providers + +------+ + | Care Portable Feed Mill Operator Name | Role | Phone | + +------+ + | Jona Mcintosh MD | PCP | | + +------+ + Encounter Details +--------+ + + + + | Date | Type | Department | Care Team | Description | +--------+ + + + + | 04/30/ | Emergency | [facility] | Anthony Ramirez | Syncope, vasovagal | | 2013 | | [facility] | MD [address] | | | | | EMERG[facility]Y CENTER | [place], | | | | | [address] [facility] | [place] [address] | | | | | [place], [place] | [phone] | | | | | [address] | | | | | | [phone] | | | +--------+ + + + [...] Author: Cecelia Alamo Service: (none) Author Type: Glass Calibrator Filed: 04/30/141246 Date of Service: 04/30/141246 Status: Signed Equal Employment Opportunity Officer: Cecelia Alamo (Glass Calibrator) EKG completed, results given to Dr Hugh Alamo 04/30/141246 Anthony Awan MD - 04/30/2014 12:04 PM PST ED Provider Notes by Anthony Ramirez MD at 04/30/14 1204 Author: Anthony Ramirez MD Service: Emergency Department Author Type: Physician Filed: 04/30/14 1758 Date of Service: 04/30/14 120 Status: Signed Equal Employment Opportunity Officer: Anthony Ramirez MD (Physician) [facility] Department of Emergency Medicine 04/30/14 [...] complaints of syncope. Onset of symptoms was SCHEDULING REPRESENTATIVE, which occ urred only once. The symptoms [...] diaphoresis, fever, cough, or congestion. No care SCHEDULING REPRESENTATIVE. The pt reports he has never passed [...] sore throat CV/Resp: Negative for chest pain, hizxriuyt-ui-oxxita, cough GI: Positive for nausea Negative for [...] Value Ref Range Date/Time Troponin I, Lab [[id number]] Collected: 04/30/14 1134 Order Status: Completed Updated: 04/30/14 1205 Specimen Information: Blood TROPONIN I <0.020 0.00 - 0.10 ng/mL Cardiac Panel [[id number]] (Abnormal) Collected: 04/30/14 1134 Order Status: Completed [...] For follow up [address] [place] [id number] [facility] Emergency Department If symptoms worsen [address] [place] [id number] Discharge Medications: Discharge Medication List as of 04/30/2014 1:17 PM Procedures Additional Documentation Procedures Attending Note: Documentation assistance provided by Marisa Yanes (Scribe). Information recorded by the scribe has been reviewed and validated by me. I gumaro madrid with its contents. MD Anthony Calderón MD 04/30/14 2140 onversion Pina saction, Provider Unknown - 04/30/2014 10:31 AM PSTFormatting of this note might be differen t from the original. ED Notes by Anika Lee RN at 04/30/14 1031 Author: Anika Lee RN Service: (none) Author Type: Registered Nurse Filed: 04/30/14 103 Date of Service: 04/30/14 103 Status: Signed Equal Employment Opportunity Officer: Anika Lee RN (Registered Nurse) Laced pt [...] [place] | | | | | | [id number] | | | | | | | [...] | | | | | ONLY, -COMPUTER (296), | | | | | | visual effects editor Tracie Ortiz | | | | [...] EXTERNAL | | | | performed at [facility];[address] | | LAB | | | | [address];[place] | | | | | | [address] | | | | + + + + + -+ | Non- | 4.28Comment: Testing | 4.20 - 5.70 | EXTERNAL | | | Red Blood | performed at [facility];888 | M/uL | LAB | | | Cells | [address];[place] | | | | | Counted | [address] | | | | + + + + + -+ | Hemoglobin | 14.8Comment: Testing | 13.2 - 17.0 | EXTERNAL | | | | performed at [facility];888 | g/dL | LAB | | | | [address];[place] | | | | | | [address] | | | | + + + + + -+ | Hematocrit, | 44.0Comment: Testing | 39.0 - 50.0 % | EXTERNAL | | | POC | performed at [facility];888 | | LAB | | | | [address];[place] | | | | | | [address] | | | | + + + + + -+ | MCV | 103.0 (H)Comment: | 80.0 - 100.0 fl | EXTERNAL | | | | Testing performed at | | LAB | | | | [facility];[address] | | | | | | [address];[place] [address] | | | | + + + + + -+ | MCH | 34.6 (H)Comment: Testing | 27.0 - 34.0 pg | EXTERNAL | | | | performed at [facility];888 | | LAB | | | | [address];[place] | | | | | | [address] | | | | + + + + + -+ | MCHC | 33.6Comment: Testing | 32.0 - 35.5 | EXTERNAL | | | | performed at [facility];888 | g/dL | LAB | | | | [address];[place] | | | | | | [address] | | | | + + + + + -+ | RDW-CV | 48.6Comment: Testing | 37 - 53 fl | EXTERNAL | | | | performed at [facility];[address] | | LAB | | | | [address];[place] | | | | | | [address] | | | | + + + + + -+ | Platelet | 175Comment: Testing | 150 - 400 K/uL | EXTERNAL | | | Count | performed at [facility];888 | | LAB | | | Plasma | [address];[place] | | | | | | [address] | | | | + + + + + -+ | MPV | 8.5Comment: Testing | fl | EXTERNAL | | | | performed at [facility];[address] | | LAB | | | | [address];[place] | | | | | | [address] | | | | + + + + + -+ | Differentia | AUTOMATEDComment: | | EXTERNAL | | | l Type | Testing performed at | | LAB | | | | [facility];[address];[place] [address] | | | | + + + + + -+ | % Segmented | 68.4Comment: Testing | % | EXTERNAL | | | | performed at [facility];888 | | LAB | | | Neutrophils | [address];[place] | | | | | | [address] | | | | + + + + + -+ | % | 23.0Comment: Testing | % | EXTERNAL | | | Lymphocytes | performed at [facility];[address] | | LAB | | | | [address];[place] | | | | | | [address] | | | | + + + + + -+ | % Monocytes | 7.5Comment: Testing | % | EXTERNAL | | | | performed at [facility];[address] | | LAB | | | | [address];[place] | | | | | | [address] | | | | + + + + + -+ | % | 0.4Comment: Testing | % | EXTERNAL | | | Eosinophils | performed at [facility];[address] | | LAB | | | | [address];[place] | | | | | | [address] | | | | + + + + + -+ | % Basophils | 0.7Comment: Testing | % | EXTERNAL | | | | performed at [facility];[address] | | LAB | | | | [address];[place] | | | | | | [address] | | | | + + + + + -+ | Absolute | 4.1Comment: Testing | 1.9 - 7.4 K/uL | EXTERNAL | | | Segmented | performed at [facility];888 | | LAB | | | Neutrophils | [address];[place] | | | | | | [address] | | | | + + + + + -+ | Absolute | 1.4Comment: Testing | 1.0 - 3.9 K/uL | EXTERNAL | | | Lymphocytes | performed at [facility];[address] | | LAB | | | | [address];[place] | | | | | | [address] | | | | + + + + + -+ | Absolute | 0.4Comment: Testing | 0 - 0.8 K/uL | EXTERNAL | | | Monocytes | performed at [facility];[address] | | LAB | | | | [address];[place] | | | | | | [address] | | | | + + + + + -+ | Absolute | 0.0Comment: Testing | 0 - 0.5 K/uL | EXTERNAL | | | Eosinophils | performed at [facility];888 | | LAB | | | | [address];[place] | | | | | | [address] | | | | + + + + + -+ | Absolute | 0.0Comment: Testing | 0 - 0.1 K/uL | EXTERNAL | | | Basophils | performed at [facility];888 | | LAB | | | | [address];[place] | | | | | | [address] | | | | + + + + + -+ | Na | 143Comment: Testing | 135 - 143 | EXTERNAL | | | | performed at [facility];888 | mmol/L | LAB | | | | [address];[place] | | | | | | [address] | | | | + + + + + -+ | K | 3.9Comment: Testing | 3.5 - 4.9 | EXTERNAL | | | | performed at [facility];888 | mmol/L | LAB | | | | [address];[place] | | | | | | [address] | | | | + + + + + -+ | Cl | 112 (H)Comment: Testing | 99 - 109 mmol/L | EXTERNAL | | | | performed at [facility];[address] | | LAB | | | | [address];[place] | | | | | | [address] | | | | + + + + + -+ | CO2 | 26Comment: Testing | 23 - 32 mmol/L | EXTERNAL | | | | performed at [facility];[address] | | LAB | | | | [address];[place] | | | | | | [address] | | | | + + + + + -+ | Anion Gap | 9Comment: Testing | 5 - 20 mmol/L | EXTERNAL | | | | performed at [facility];[address] | | LAB | | | | [address];[place] | | | | | | [address] | | | | + + + + + -+ | Glucose, | 114 (H)Comment: Testing | 65 - 99 mg/dL | EXTERNAL | | | Fasting | performed at [facility];[address] | | LAB | | | | [address];[place] | | | | | | [address] | | | | + + + + + -+ | BUN | 15Comment: Testing | 8 - 25 mg/dL | EXTERNAL | | | | performed at [facility];[address] | | LAB | | | | [address];[place] | | | | | | [address] | | | | + + + + + -+ | Creatinine | 1.09Comment: Testing | 0.70 - 1.30 | EXTERNAL | | | | performed at [facility];888 | mg/dL | LAB | | | | [address];[place] | | | | | | [address] | | | | + + + + + -+ | BUN/Creatin | 14Comment: Testing | | EXTERNAL | | | ine Ratio | performed at [facility];[address] | | LAB | | | | [address];[place] | | | | | | [address] | | | | + + + + + -+ | Calcium | 8.5Comment: Testing | 8.5 - 10.2 | EXTERNAL | | | | performed at [facility];888 | mg/dL | LAB | | | | [address];[place] | | | | | | [address] | | | | + + + + + -+ | Protein, | 6.7Comment: Testing | 6.3 - 8.2 g/dL | EXTERNAL | | | Total | performed at [facility];[address] | | LAB | | | | [address];[place] | | | | | | [address] | | | | + + + + + -+ | Albumin | 3.7Comment: Testing | 3.3 - 4.8 g/dL | EXTERNAL | | | | performed at [facility];[address] | | LAB | | | | [address];[place] | | | | | | [address] | | | | + + + + + -+ | Globulin | 3.1Comment: Testing | 1.3 - 4.9 g/dL | EXTERNAL | | | | performed at [facility];[address] | | LAB | | | | [address];[place] | | | | | | [address] | | | | + + + + + -+ | A/G Ratio | 1.2Comment: Testing | 1.0 - 2.4 | EXTERNAL | | | | performed at [facility];[address] | | LAB | | | | [address];[place] | | | | | | [address] | | | | + + + + + -+ | Bilirubin | 1.4Comment: Testing | 0.1 - 1.5 mg/dL | EXTERNAL | | | Total | performed at [facility];[address] | | LAB | | | | [address];[place] | | | | | | [address] | | | | + + + + + -+ | ALP, | 93Comment: Testing | 35 - 115 U/L | EXTERNAL | | | External | performed at [facility];[address] | | LAB | | | | [address];[place] | | | | | | [address] | | | | + + + + + -+ | AST | 19Comment: Testing | 10 - 45 U/L | EXTERNAL | | | | performed at [facility];[address] | | LAB | | | | [address];[place] | | | | | | [address] | | | | + + + + + -+ | ALT | 25Comment: Testing | 10 - 65 U/L | EXTERNAL | | | | performed at [facility];[address] | | LAB | | | | [address];[place] | | | | | | [address] | | | | + + + [...] | | | | | | at [facility];[address] | | | | | | [address];[place] [address] | | | | + + + + + -+ | CK, Total | 53 (L)Comment: Testing | 55 - 400 U/L | EXTERNAL | | | | performed at [facility];[address] | | LAB | | | | [address];[place] | | | | | | [address] | | | | + + + [...] | | | | | performed at [facility];[address] | | | | | | [address];[place] | | | | | | [address] | | | | + + + + + -+ | aPTT, | 21 (L)Comment: Testing | 23 - 32 seconds | EXTERNAL | | | Patient | performed at [facility];[address] | | LAB | | | | [address];[place] | | | | | | [address] | | | | + + + + + -+ | CK-MB | 1.1Comment: Testing | 0.5 - 3.6 ng/mL | EXTERNAL | | | | performed at [facility];[address] | | LAB | | | | [address];[place] | | | | | | [address] | | | | + + + [...] | | | | | performed at [facility];[address] | | | | | | [address];[place], [place] | | | | | | [address] | | | | + + + [...]
--- OUTSIDE RECORDS SUMMARY | ~2020-01-23 | XMS | Encounter Summary ---
Demographics + + + | Address | [address] | | | [place] [address] | + + + | Home Phone | | + + + | Preferred Language | Unknown | + + + | Marital Status | | + + + | Nondenominational Affiliation | 1013 | + + + | Race | Unknown | + + + | Ethnic Group | Unknown | + + + Author + + + | Author | [facility] | | | and [place] | + + + | Organization | [facility] | | | [...] | | | | | [place] [address] | | + + + + + | Melissa Daley | ECON | [address] | | | | | [place] [address] | | + + + + + Care Team Providers + +------+ + | Care Lime Kiln Worker Helper Name | Role | Phone | [...] 2019 | | [address] | [place] | | | | | [place] | | | | | | [address] | | | | | | [phone] | | | +--------+ + + + [...] [place] | | | | | | [id number] | | | | | | | | +--------+---------+ + + + documented as of this encounter Visit Diagnoses Not on filedocumented in this encounter"
--- OUTSIDE RECORDS SUMMARY | ~2020-01-23 | XMS | Encounter Summary ---
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
--- OUTSIDE RECORDS SUMMARY | ~2020-01-23 | XMS | Encounter Summary ---
Demographics + + + | Address | [address] | | | [place] [address] | + + + | Home Phone [...] | | | | | [place] [address] | | + + + + + | Melissa Daley | ECON | [address] | | | | | [place] [address] | | + + + + + Care Team Providers + +------+ + | Care Livestock Rancher Name | Role | Phone | + +------+ + PCP | Unavailable | + +------+ + Encounter Details +--------+ + + + + | Date | Type | Department | Care Team | Description | +--------+ + + + + | 10/18/ | Hospital | [facility] | Unknown, | | | 1992 | Encounter | MED CTR XRAY [address] | MD [place] . | | | | | [place] | | | | | | [place] [address] | (Fax) | | | | | [phone] | | | +--------+ + + + [...] [place] | | | | | | [address] | | | | | | | | +--------+---------+ + + + documented as of this encounter Visit Diagnoses Not on filedocumented in this encounter"
--- OUTSIDE RECORDS SUMMARY | ~2020-01-23 | XMS | Encounter Summary ---
Demographics + + + | Address | [address] | | | [place] [address] | + + + | Home Phone [...] | | | | | [place] [address] | | + + + + + | Melissa Daley | ECON | [address] | | | | | [place] [address] | | + + + + + Care Team Providers + +------+ + | Care Hand Scraper Name | Role | Phone | + +------+ + PCP | Unavailable | + +------+ + Encounter Details +--------+ + + + + | Date | Type | Department | Care Team | Description | +--------+ + + + + | 04/16/ | Hospital | [facility] | | | | 2000 - | Encounter | MED CTR OP REHAB | | | | | | [address] | | | | 04/20/ | | [place] [address] | | | | 2000 | | [phone] | | | +--------+ + + + [...]
--- OUTSIDE RECORDS SUMMARY | ~2020-01-23 | XMS | Encounter Summary ---
Demographics + + + | Address | [address] | | | [place] [address] | + + + | Home Phone [...] | | | | | [place] [address] | | + + + + + | Melissa Sheldon | ECON | [address] | | | | | [place] [address] | | + + + + + Care Team Providers + +------+ + | Care Oil Rig Driller Name | Role | Phone | + +------+ + | Jona Deal MD | PCP | | + +------+ + Encounter Details +--------+ + + + + | Date | Type | Department | Care Team | Description | +--------+ + + + + | 09/29/ | Hospital | [facility] | [place], | BOOP (bronchiolitis | | 2012 - | Encounter | MED CTR XRAY [address] | Carmelita Penny MD | obliterans with | | | | [place] | | organizing | | 10/01/ | | [place] [address] | | pneumonia) (HCC) | | 2012 | | [phone] | | | +--------+ + + + [...] [place] | | | | | | [address] | | | | | | | [...] At | + + + | [facility] | [place] | | Department [address] [place] [address] | [facility] | | [ rep [address]] [ rep [facility] | | st zip] Signed | - IMAGING | | | | | Patient Name: RON SHELDON V Physician: | | | DOROTEOAna Luisa : 1935 Age: 77 Sex: M Unit #: [id number] | | | Exam Date: 09/29/12 Location: [facility] | | | Report #: [id number] Page: | | | %(RAD)RES..mtdd.print.filter("pg") of %(RAD) | | | RES..mtdd.print.filter("tpg") | | | | | | Accession Number: [id number] | | | CHEST, PA AND LATERAL, [...] | | | Transcribed Date/Time: 09/29/2012 12:33 Job Service Consultant: | | | <<Signature on File>> | | | Mart | | | MD [place]09/29/12 1551 <Electronically signed by Mart Boyle MD> | | | Mart Boyle MD 09/29/12 1227 Job Service Consultant: [employer] | | | Urrvdfkypvebz63/10/13 1233 Carmelita Mckeon MD | | | | | + + + + + + + + | Performing | Address | City/State/Zipcode | Phone Number | | Organization | | | | + + + + + | [facility] | [address] 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
--- OUTSIDE RECORDS SUMMARY | ~2020-01-23 | XMS | Encounter Summary ---
Demographics + + + | Address | [address] | | | [place] [address] | + + + | Home Phone [...] | | | | | [place] [address] | | + + + + + | Melissa Daley | ECON | [address] | | | | | [place] [address] | | + + + + + Care Team Providers + +------+ + | Care Well Reactivator Operator Name | Role | Phone | [...] | | | | | | [place] [address] | | | | | | [phone] | | | +--------+ + + + [...]
--- OUTSIDE RECORDS SUMMARY | ~2020-01-23 | XMS | Encounter Summary ---
Demographics + + + | Address | [address] | | | [place] [address] | + + + | Home Phone [...] | | | | | [place] [address] | | + + + + + | Melissa Daley | ECON | [address] | | | | | [place] [address] | | + + + + + Care Team Providers + +------+ + | Care Emergency Man Name | Role | Phone | [...] | RN | | | | | [place], | | | | | | [place] [address] | | | | | | [phone] | | | +--------+ + + + [...] [place] | | | | | | [address] | | | | | | | | +--------+---------+ + + + documented as of this encounter Visit Diagnoses Not on filedocumented in this encounter"
[~2020-01-23 10:43] MED LIST changes: -ATENOLOL100 MG PO; +ATENOLOL50 MG PO; -LIPITOR40 MG PO; +NORVASC2.5 MG PO; -NORVASC5 MG PO
--- NOTE | 2020-01-23 13:23 | EKG ---
[facility] [address] [facility] [place], [place] [address] Signed Atrial fibrillation Prolonged QT Abnormal ECG No previous ECGs available Confirmed by KEVIN JOY DO ([id number]) on 01/23/2020 1:23:37 PM Electronically Signed By: KEVIN JOY DO 01/23/20 1323 PATIENT NAME: DIONICIO SHELDON Electrocardiogram DATE OF : [birth year] PHYSICIAN: KEVIN JOY DO REPORT #: [id number] REPORT IS CONFIDENTIAL AND NOT TO BE RELEASED WITHOUT AUTHORIZATION
--- NOTE | 2020-01-23 14:41 | NUR ---
85 year old MALE PATIENT ADMITTED TO CCU FROM ED VIA STRETCHER UNDER DR. JOY WITH DX OF SHORTNESS OF BREATH/HEART FAILURE. ON ADMIT PATIENT IS ALERT AND ORIENTED, HAS BEEN WITH INCREASED SHORTNESS OF BREATH FOR PAST COUPLE OF DAYS. WAS AT [facility] 2 WEEKS AGO FOR KIDNEY STONE REMOVAL, WENT INTO AFIB POST OP. IS CURRENTLY IN A FIB WITH CONTROLLED VENT RESPONSE. TAKES BETA SUNNI. ADMISSION PROCESS STARTED.
--- NOTE | 2020-01-23 15:15 | NUR ---
ECHO BEING DONE AT BEDSIDE.
[2020-01-23] MEDS ORDERED: TAMSULOSIN HCL0.4 MG PO (15:18)
--- NOTE | 2020-01-23 16:00 | NUR ---
TELE # 1 APPLIED, IS IN AFIB.
--- NOTE | 2020-01-23 18:19 | NUR ---
PATIENT SITTING UP IN BED, DAUGHTER IN ROOM. CALL LIGHT IN REACH. NO FURTHER NEEDS AT THIS TIME.
--- NOTE | 2020-01-23 19:00 | NUR ---
NO CHANGES. REPORT TO NEXT SHIFT.
--- NOTE | 2020-01-23 20:20 | NUR ---
SHIFT REPORT RECEIVED FROM JUANCARLOS MCLAUGHLIN. ASSESSMENT COMPLETED AT THIS TIME. PT IS ALERT/ORIENTED, DENIES PAIN. TEMP 99.4, PRN TYLENOL GIVEN. LUNGS CLEAR, DIM IN BASES, RA. HR IRREGULAR, A.FIB PER TELE #1. BOWEL TONES ACTIVE, DENIES NAUSEA. SKIN GROSSLY INTACT, 3+EDEMA TO BLE. URINAL EMPTIED. IV SITE INTACT, PATENT, SALINE LOCKED. CB, 3 UNITS SLIDING SCALE ADMINISTERED. PT DENIES REQUESTS OR COMPLAINTS AT THIS TIME, CALL LIGHT WITHIN REACH.
--- NOTE | 2020-01-23 22:56 | NUR ---
PT MOVED OVER TO ROOM 111 ON MED-SURG WITH ALL BELONGINGS. REPORT GIVEN TO JUANCARLOS ROB[place]. RE-CHECKED TEMP PRIOR TO MOVE, 98.5 ORALLY.
--- NOTE | 2020-01-23 23:19 | NUR ---
BEDSIDE REPORT RECVD FROM CLAUDINE BAUER. PT ARRIVED TO RM 111 IN STRETCHER. INTRODUCED MYSELF TO PT. URINAL AND CALL LIGHT IN REACH. NO FURTHER NEEDS AT THIS TIME. WILL RETURN TO ASSESS PT.
--- NOTE | 2020-01-24 00:20 | NUR ---
IN TO CHECK ON PT, PT AWAKENS WHEN RN ENTERS ROOM. PT STATES HE IS DOING FINE. LIGHTS OUT PER PT REQUEST. ALL BED RAILS UP AND CALL LIGHT IN REACH. NO FURTHER NEEDS AT THIS TIME, CALL LIGHT IN REACH.
--- NOTE | 2020-01-24 02:38 | NUR ---
IN TO CHECK ON PT, PT APPEARS TO BE SLEEPING. RR EVEN. CALL LIGHT IN REACH. WILL CONTINUE TO MONITOR PT.
--- NOTE | 2020-01-24 03:51 | NUR ---
IN TO CHECK ON PT, PT SNORING SOFTLY. URINAL EMPTIED AND CHARTED. CALL LIGHT IN REACH.
--- NOTE | 2020-01-24 05:54 | NUR ---
IN TO SEE PT. VITALS AND DAILY WEIGHT COMPLETED.I & O COMPLETED. PT ASSISTED UP TO CHAIR WITH 2 PERSON ASSIST. PT TOLERATED WELL. NOTED ELEVATED BP, WILL DISCUSS WITH DENTAL TECHNICIAN.
--- NOTE | 2020-01-24 07:55 | NUR ---
Pt sitting up in chair at this time, respirations are even and non labored. Pt denies pain and or sob at this time. Pt stated he will be ordering his breakfast here soon. No needs at this time. Call light within reach.
--- NOTE | 2020-01-24 08:10 | NUR ---
PATIENT SITTING UP IN CHAIR. WHITE BOARD UPDATED. PATIENT'S HANDS AND FACE WASHED. CALL LIGHT WITHIN REACH. NO OTHER NEEDS AT THIS TIME
--- NOTE | 2020-01-24 09:32 | NUR ---
PATIENT SITTING UP IN CHAIR. PHYSICAL THERAPIST IN ROOM. PATIENT ASSITED TO TRANSFER TO BED. TWO PERSON ASSITING WITH WALKER. VITAL SIGNS AND I&O DONE.CALL LIGHT WITHIN REACH. NO OTHER NEEDS AT THIS TIME
--- NOTE | 2020-01-24 10:00 | NUR ---
Spoke with pt, pt plans on returning to [facility] with on discharge. Denies needs.
--- NOTE | 2020-01-24 11:38 | NUR ---
PT SITTING UP IN BED-ALERT AND ORIENTED. PT IS FRIENDLY, SOB DETECTED, PT STATED HE DIDN'T SLEEP WELL. GAVE BLESSING, WILL FOLLOW
--- NOTE | 2020-01-24 13:00 | NUR ---
Pt doing well, worked with physical therapy this afternoon. Pt tolerated lunch well. No needs at this time. Call light within reach.
--- NOTE | 2020-01-24 13:33 | NUR ---
this nurse went to pts room after answering his nurse call light. noted that his IV had been accidentally removed. IV tip intact. 2x2 in [address]. Pt unaware of how IV was remoed. will notify primary RN
--- NOTE | 2020-01-24 13:41 | NUR ---
PATIENT RESTING IN BED. VITAL SIGNS AND I&O DONE. HIGH BLOOD PRESSURE. RN NOTIFIED. CALL LIGHT WITHIN REACH. NO OTHER NEEDS AT THIS TIME
--- NOTE | 2020-01-24 17:46 | NUR ---
PATIENT SITTING UP IN BED. VITAL SIGNS AND I&O DONE. CALL LIGHT WITHIN REACH. NO OTHER NEEDS AT THIS TIME
--- NOTE | 2020-01-24 18:00 | NUR ---
Pt doing well at this time, respirations are even and non labored. Pt denies pain at this time. Tolerated his dinner well. Pt requesting to rest at this time. Call light within reach. No needs at this time.
--- NOTE | 2020-01-24 19:40 | NUR ---
PT IS SITTING UP IN BED, TALKING WITH VISITOR IN ROOM. DENIES NEEDS AT THIS TIME.
--- NOTE | 2020-01-24 21:12 | NUR ---
IN TO DO ASSESSMENT AND HS MEDS. PT DENIES NEEDS AT THIS TIME. CALL LIGHT IN HAND.
--- NOTE | 2020-01-24 22:10 | NUR ---
PT IN BED, RESP EVEN AND UNLABORED, EYES CLOSED.
--- NOTE | 2020-01-24 22:38 | NUR ---
V/S DONE BY PRIMARY RN JUVENAL. INTAKE AND OUTPUT DONE AND CHARTED BY THIS PHARMACY STUDENT.
--- NOTE | 2020-01-25 00:15 | NUR ---
PT RESTING WITH EYES CLOSED, RESP EVEN AND UNLABORED. URINAL EMPTIED, PT REMAINS SLEEPING.
--- NOTE | 2020-01-25 02:30 | NUR ---
PT RESTING WITH EYES CLOSED, RESP EVEN AND UNLABORED.
--- NOTE | 2020-01-25 04:10 | NUR ---
PT SPILLED SOME URINE ON HIS BED TRYING TO USE URINAL-UP INTO CHAIR WITH CALL LIGHT IN HAND AND LINENS CHANGED.
--- NOTE | 2020-01-25 05:45 | NUR ---
PT AWAKE UP IN CHAIR, CALL LIGHT IN REACH, DENIES NEEDS.
--- NOTE | 2020-01-25 06:54 | NUR ---
ELEVATED BP'S NOTED, RECHECKED AND IS 160/91. PT SLEEPING IN CHAIR, AWAKENS BRIEFLY WHILE HAVING BP CUFF PLACED, DENIES NEEDS THEN GOES BACK TO SLEEP. WILL NOTIFY .
--- NOTE | 2020-01-25 07:22 | NUR ---
DR MELO UPDATED REGARDING ELEVATED BP'S, ORDER GIVEN TO GIVE AM ATENOLOL EARLY.
--- NOTE | 2020-01-25 08:29 | NUR ---
PATIENT SITTING UP IN CHAIR. WHITE BOARD UPDATED. PATIENT'S HANDS AND FACE WASHED. ONE PERSON ASSISTING. SETS UP TABLE FOR BREAKFAST. CALL LIGHT WITHIN REACH. NO OTHER NEEDS AT THIS TIME
--- NOTE | 2020-01-25 09:15 | NUR ---
PATIENT SITTING UP IN CHAIR. VITAL SIGNS AND I&O DONE. PATIENT SAYS THAT HE DID NOT HAVE BOWEL MOVEMENT IN THE LAST COUPLE DAYS AND WOULD LIKE SOMETHING TO HELP HIM WITH HIS CONSTIPATION. RN NOTIFIED. ICE WATER GIVEN. CALL LIGHT WITHIN REACH. NO OTHER NEEDS AT THIS TIME
--- NOTE | 2020-01-25 09:30 | NUR ---
Pt working with PT. Denies complaints.
--- NOTE | 2020-01-25 13:45 | NUR ---
PATIENT SITTING UP IN CHAIR. VITAL SIGNS AND I&O DONE. ICE WATER GIVEN. CALL LIGHT WITHIN REACH. NO OTHER NEEDS AT THIS TIME
--- NOTE | 2020-01-25 15:44 | NUR ---
Pt sitting up in chair resting, eyes closed, no distress noted. Call light wihtin reach.
--- NOTE | 2020-01-25 17:50 | NUR ---
PATIENT SITTING UP IN CHAIR. VITAL SIGNS AND I&O DONE. CALL LIGHT WITHIN REACH. PATIENT REFUSED TO DO ORAL CARE. NO OTHER NEEDS AT THIS TIME
--- NOTE | 2020-01-25 19:20 | NUR ---
RECIEVED REPORT AT BEDSIDE. PT [place], BUT ENGANGED IN REPORT. 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 FOUND IN CHAIR NEXT TO HIM. NO OTHER REQUEST AT THIS TIME. CALL LIGHT IN REACH. NO C/O PAIN OR NAUSEA
--- NOTE | 2020-01-26 00:12 | NUR ---
PT RESTIGN IN BED WITH EYES CLOSED, LIGHTS OFF IN ROOM. CALL LIGHT IN REACH. NO REQUESTS.
--- NOTE | 2020-01-26 00:54 | NUR ---
PT USED CALL LIGHT. REQUEST TO GO TO THE BATHROOM. PT. ABMULATED FROM BED TO RESTROOM WITH FWW AND SBA. PRIVACY GIVEN. PT CALLED USING BATHROOM CALL LIGHT WHEN FINISHED, PT CLEANED SELF. PT BACK INTO BED. REQUESTED HE WAS A LITTLE HUNGRY. OFFERED TO GET HIM A SANDWHICH, HE DECLINED, BUT REQUESTED JELLO. PT NOW RESTING IN BED WITH EYES CLOSED AND CALL LIGHT IN REACH
--- NOTE | 2020-01-26 05:12 | NUR ---
PT HAD A VERY GOOD NIGHT AND WAS ABLE TO GET MUCH NEEDED RESTPT USES CALL LIGTH APPROPRIATLY AND AMBULATES TO RESTROOM WITH SBA AND FWW. PT HAD BM 8-5-20. PT WORKING WITH PT AND OT. PT EXPREINCES DYSPNEA ON EXERTIONAND HAD MINIMAL EDEMA IN LOWER EXTREMITES.
--- NOTE | 2020-01-26 06:24 | NUR ---
PT UP IN CHAIR, OFFERED WASH CLOTH FOR FACE. PT WEIGHT 107.2KG
--- NOTE | 2020-01-26 07:39 | NUR ---
MORNING ASSESSMENT DONE, PATIENT GIVEN 500MG OF PO TYLENOL FOR 8/10 FRONTAL HEADACHE. PATIENT IS UP TO CHAIR. LUNGS ARE CLEAR, BASES ARE CLEAR. PATIENT DENIES OTHER NEEDS AT THIS TIME.
--- NOTE | 2020-01-26 07:50 | NUR ---
Discussed with Dr. Foreman last night, possibility of Ron starting Transitional care for further conditioning. She feels pt would benefit from this. Spoke with Dominga Gray this am and she is in agreement, with the understanding if there is an influx of pt's, he will need discharged. Spoke with Ron and he agrees he needs further conditional and agrees to stay into next week. He will require 2 more night stay to qualify TC.
--- NOTE | 2020-01-26 09:10 | NUR ---
Called and spoke with pt's daughter Katie. Discussed info for TC. She would like pt to stay as long as needed for PT. Discussed pt concern to go home soon. She states she will be here this afternoon and speak with her dad. Informed I will leave a TC brochure a list of SNF's in area which also provide rehab.
--- NOTE | 2020-01-26 12:41 | NUR ---
3 units of NOVOLOG GIVEN FOR BG OF 200. PATIENT UP TO CHAIR, ATE 100% OF BREAKFAST.
--- NOTE | 2020-01-26 13:17 | NUR ---
PT SITTING IN CHAIR, DOZING ON AND OFF. 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 GAVE BLESSING
--- NOTE | 2020-01-26 14:21 | NUR ---
PATIENT SITTING UP IN CHAIR SLEEPING WITH REGULAR RESPIRATIONS.
--- NOTE | 2020-01-26 15:25 | NUR ---
PATIENT IS HAVING SPOUSE BRING HEARING AID BATTERIES TO HOSPITAL. PATIENT TO TAKE A SHOWER.
--- NOTE | 2020-01-26 16:53 | NUR ---
DR. MELO AND PATIENTS DAUGHTER IN ROOM TO VISIT WITH PATIENT.
--- NOTE | 2020-01-26 17:36 | NUR ---
PATIENT UP TO CHAIR, DINNER ORDERED, DAUGHTER IN ROOM WITH PATIENT.
--- NOTE | 2020-01-26 19:15 | NUR ---
SHIFT REPORT RECEIVED FROM DAYSHIFT RN MAGI AT THIS TIME AT BEDSIDE. PT AWAKE AND RESTING IN BED, DAYSHIFT VACATION PLANNER ASSISTING WITH PT NEEDS, NO ADDITIONAL NEEDS VERBALIZED. BOARD UPDATED, CALL LIGHT IN REACH.
--- NOTE | 2020-01-26 19:26 | NUR ---
I ASKED HIM ABOUT TAKING A SHOWER TODAY AND HE SAID SURE THAN I WENT BACK IN LATER ON AND HE SAID HE WILL TAKE ONE TOMORROW. HE SAID HE HAD AN ACCIDENT IN HIS CHAIR. SO I LET HIM EAT HIS DINNER. THAN CAME BACK IN AND CLEANED HIM UP. NOW HE HAS A NEW GOWN ON AND NEW SOCKS. AND HE IS IN BED.
--- NOTE | 2020-01-26 20:50 | NUR ---
ASSESSMENT COMPLETE, SCHEDULED MEDS GIVEN (SEE EMAR). PT ELEM, BATTERIES TO HEARING AIDS REPLACED, PT FULLY A/O. VSS, PT DENIES PAIN AND NAUSEA. NO ADDITIONAL NEEDS AT THIS TIME, CALL LIGHT IN REACH.
--- NOTE | 2020-01-27 00:32 | NUR ---
PT RESTING IN BED WITH EYES CLOSED, RR EVEN AND UNLABORED. NO DISTRESS NOTED. CALL LIGHT IN REACH.
--- NOTE | 2020-01-27 02:07 | NUR ---
ROUNDING ON PT. PT REPORTS INCREASING PAIN R/T HEADACHE, PRN TYLENOL GIVEN (SEE EMAR). PT REPORTS SOB IS WORSE WHEN HE IS LYING DOWN OR FLAT, HOB ELEVATED WITH PILLOWS X2 BEHIND BACK, O2 SAT 95% ON RA, HR 70'S. PT INTERACTIVE WITH STAFF, NO DISTRESS NOTED. CALL LIGHT IN REACH.
--- NOTE | 2020-01-27 04:17 | NUR ---
PT RESTING QUIETLY IN BED WITH EYES CLOSED, NO DISTRESS NOTED. CALL LIGHT IN REACH.
--- NOTE | 2020-01-27 07:38 | NUR ---
0720: Report received from Jasmin BAUER. Pt sleeping in his chair with his call ramirez within reach.
--- NOTE | 2020-01-27 08:50 | NUR ---
PT RESTING IN HIS CHAIR EATING HIS BREAKFAST. HE DENIES ANY PROBLEMS OTHER THAN SOB WHEN HE WALKS. SAT IS 97% ON ROOM AIR AT REST AT THIS TIME AND HE DENIES ANY PROBLEMS AT THIS TIME. PT RECEIVED ORDERED LASIX AND HIS LEGS ARE ELEVATED, SEE ASSESSMENT.
--- NOTE | 2020-01-27 11:07 | NUR ---
PT IS OUT WALKING WITH Jerilyn RAY. PT'S IS IN RM WITH THEIR EDUCATION SITE MANAGER. HAD PLEASANT VISIT, PROVIDED PILLOW AND BLANKET FOR SPOUSE. GAVE BLESSING, WILL FOLLOW NEEDED
--- NOTE | 2020-01-27 11:09 | NUR ---
Ron will start TC tomorrow. Daughter was in yesterday and in agreement with the plan. Spoke with father and he will stay until goals met for PT/OT.
--- NOTE | 2020-01-27 12:32 | NUR ---
Pt eating lunch and denies any problems.
--- NOTE | 2020-01-27 14:04 | NUR ---
PT RESTING IN HIS CHAIR WATCHING TV AND HE DENIES ANY PAIN OR NEW PROBLEMS AT THIS TIME. SEE ASSESSMENT.
--- NOTE | 2020-01-27 15:35 | NUR ---
REPORT RECEIVED FROM JUANCARLOS CAMEJO. THIS RN ASSMING CARE OF PT.
--- NOTE | 2020-01-27 16:58 | NUR ---
THIS RN TO ROOM TO CHECK ON PT. PT RECENTLY GIVEN MEDICATION FOR HEADACHE. PT CONTINUES TO REPORTS HEADACHE IS PRESENT. PT REMINICING ABOUT VISITAITONS FROM FAMILY MEMEBERS. MEDICATION GIVEN. PT DENIES REQUESTS OR COMLAINTS. PT UP TO VOID WITH URINAL WITHOUT ISSUE. PT EATING DINNER. NO ADDITIONAL REQUESTS OR COMPLAITNS. CALL LIGHT WITHIN REACH.
--- NOTE | 2020-01-27 17:38 | NUR ---
PT HERE FOR CHF EXACERBATION. 1 PERSON ASSIST WITH FRONT WHEEL WALKER, UP TO CHAIR FOR MOST OF THIS SHIFT. PT TOLERATING 60G CARB DIET IWTH 2G SODIUM RESTRICION WELL, SCHEUDLED BLOOD SUGAR CHECKS AND SLIDING SCALE INSULIN. CORSE LUNG SOUNDS, +1 EDEMA TO LOWER EXTERMITIES, AND LOOSE BOWEL MOVMENTS THIS SHIFT. PT PLESENT AND PARTICIPATING IN CARES. DAILY WEIGHT. LEFT WRIST IV SALINE LOCKED. PHYSICAL THERAPY AND OCCUPATIONAL THERAPY THIS SHIFT. PT VOIDING QUANTITY SUFFICENT. PT USES CALL LIGHT APPROPRIATLY.
--- NOTE | 2020-01-27 18:01 | NUR ---
THIS RN TO ROOM TO CHECK ON PT. PT REMAINS UP TO CHAIR. PT REPORTS HEADACHE IS "BETTER" NOW TOLERABLE AT 4/10. PT DENIES NEED FOR ADDITIONAL MEDICAITON. PT VOIDED IN URINAL INDEPENDANTLY. URINAL EMPTIED. NO ADDITIONAL REQUESTS OR COMPLAINTS. PT WATCHING TV. CALL LIGHT WITHIN REACH.
--- NOTE | 2020-01-27 18:30 | NUR ---
ASSSITED PATIENT TO SHOWER USING FWW. PATIENT WAS ABLE TO WASH AND DRY HIMSELF.
--- NOTE | 2020-01-27 19:10 | NUR ---
SHIFT REPORT RECEIVED FROM GUDELIAWADANIELLE ORTEGA AT BEDSIDE. PT AWAKE AND RESTING QUIETLY IN BED, CALL LIGHT IN REACH. PT DENIES PAIN FROM HEADACHE, DENIES NEEDS AT THIS TIME. BOARD UPDATED.
--- NOTE | 2020-01-27 21:45 | NUR ---
ASSESSMENT COMPLETE, VSS. PT DENIES PAIN AND NAUSEA. [place], HEARING AIDS AT BEDSIDE. DENIES NEED TO VOID, WILL MONITOR. CALL LIGHT IN REACH.
--- NOTE | 2020-01-27 23:00 | NUR ---
EMPTIED PT'S URINAL. BEDSIDE TABLE AND CALL LIGHT IN REACH. PT APPEARS TO BE SLEEPING.
--- NOTE | 2020-01-27 23:30 | NUR ---
PT RESTING QUIETLY IN BED WITH EYES CLOSED. RR EVEN AND UNLABORED. NO DISTRESS NOTED. CALL LIGHT IN REACH.
--- NOTE | 2020-01-28 02:29 | NUR ---
PT CALLED STATING HE HAD A HEADACHE. ADMINISTERED TYLENOL. PT DENIES FURTHER NEEDS. CALL LIGHT IS CLOSE.
--- NOTE | 2020-01-28 02:33 | NUR ---
EMPTIED PT'S URINAL AND HE ALSO ASKED FOR PAIN MEDICINE FOR HIS HEADACHE. I INFORMED JUANCARLOS DARLING.
--- NOTE | 2020-01-28 03:14 | NUR ---
PT RESTING QUIETLY IN BED WITH EYES CLOSED, RR EVEN AND UNLABORED. NO DISTRESS NOTED. CALL LIGHT IN REACH.
--- NOTE | 2020-01-28 05:32 | NUR ---
ASSESSMENT COMPLETE, NO NEW CHANGES OR CONCERNS. PT AWAKE AND WATCHING TV, DENIES PAIN AND NAUSEA. DENIES ADDITIOANL NEEDS. SOCIAL SERVICE DIRECTOR BRONSON IN ROOM TO COMPLETE VS.
[2020-01-28] MEDS ORDERED: XARELTO10 MG PO (06:55)
[2020-01-28] MEDS ORDERED: ATENOLOL50 MG PO (06:55)
[2020-01-28] MEDS ORDERED: POTASSIUM CHLO10 ME1 PO (06:56)
[2020-01-28] MEDS ORDERED: FUROSEMIDE20 MG PO (06:56)
[2020-01-28] MEDS ORDERED: METFORMIN HCL500 MG PO (06:57)
[2020-01-29] MEDS ORDERED: DOXAZOSIN MESYLA4 MG PO (09:36)
== END 2020-01-28 07:00 | disposition swing bed (61) | DRG 291 ==
LOC: ED 10:43 → MS 10:45 → CCU 10:45 → MS 22:54
PROVIDERS: ADMIT Student in an Organized Health Care Education/Training Program
DX: I11.0 Hypertensive heart disease with heart failure (principal); I50.31 Acute diastolic (congestive) heart failure; I27.20 Pulmonary hypertension, unspecified; I48.91 Unspecified atrial fibrillation; R73.9 Hyperglycemia, unspecified; K21.9 Gastro-esophageal reflux disease without esophagitis; Z20.828 Contact with and (suspected) exposure to other viral communicable diseases; Z91.041 Radiographic dye allergy status
CPT/HCPCS: 36415; 71045; 80048; 80053; 83036; 83735; 83880; 84484; 85025; 85379; 93005; 93010; 93306; 96372; 96374; 96376; 97110; 97116; 97162; 97165; 97535; 99285-25; G0378; J1650; J1815; J1940

== ENCOUNTER 2020-01-28 07:00 | Inpatient (IN) | payer MEDICARE, OTHER ==
[~2020-01-28] VITALS: Ht 180.3 cm; Wt 102.1 kg
[~2020-01-28 07:00] MED LIST changes: +FUROSEMIDE20 MG PO; +POTASSIUM CHLO10 ME1 PO; +TAMSULOSIN HCL0.4 MG PO; +XARELTO10 MG PO
[2020-01-29] MEDS ORDERED: DOXAZOSIN MESYLA4 MG PO (09:36)
[2020-02-02] MEDS ORDERED: XARELTO20 MG PO (15:23)
[2020-02-02] MEDS ORDERED: NORVASC2.5 MG PO (15:24)
[2020-02-02] MEDS ORDERED: FUROSEMIDE20 MG PO (15:26)
[2020-02-02] MEDS ORDERED: POTASSIUM CHLO10 ME1 PO (15:26)
[2020-02-02] MEDS ORDERED: METFORMIN HCL500 M2 PO (15:28)
== END 2020-02-03 15:02 | disposition home health service (06) | DRG 291 ==
LOC: MS 07:00
PROVIDERS: ADMIT Internal Medicine
DX: I11.0 Hypertensive heart disease with heart failure (principal); I50.31 Acute diastolic (congestive) heart failure; I48.91 Unspecified atrial fibrillation; E11.9 Type 2 diabetes mellitus without complications; E78.5 Hyperlipidemia, unspecified; I27.20 Pulmonary hypertension, unspecified; K21.9 Gastro-esophageal reflux disease without esophagitis; E79.0 Hyperuricemia without signs of inflammatory arthritis and tophaceous disease; N40.1 Benign prostatic hyperplasia with lower urinary tract symptoms; N39.498 Other specified urinary incontinence; R54 Age-related physical debility; Z79.899 Other long term (current) drug therapy; Z91.041 Radiographic dye allergy status
CPT/HCPCS: 36415; 80048; 83036; 83880; 85025; 97110; 97112; 97116; 97162; 97165; 97530; 97535

== ENCOUNTER → 2020-04-03 | Emergency (ER) | payer MEDICARE, OTHER ==
[~2020-04-03] VITALS: Ht 180.3 cm; Wt 102.1 kg
[~2020-04-03] MED LIST changes: +DOXAZOSIN MESYLA4 MG PO; +LIDODERM1 EACH TD; +METFORMIN HCL500 M2 PO; +XARELTO20 MG PO
== END ==
LOC: ED 13:21
DX: M54.5 Low back pain (principal); I10 Essential (primary) hypertension; Z79.899 Other long term (current) drug therapy
CPT/HCPCS: 74176; 80053; 81001; 85025; 99284-25

== ENCOUNTER 2020-05-29 05:58 | Inpatient (IN) | payer MEDICARE, OTHER ==
[~2020-05-29] VITALS: Ht 180.3 cm; Wt 97.8 kg
--- NOTE | 2020-05-29 10:50 | NUR ---
PT ARRIVED TO FLOOR VIA STRETCHER. ON 2L NC. STANDING WEIGHT OBTAINED. TRANSFTER TO BED SBA WITH FWW. ASSESSMENT COMPLETED. MEDS GIVEN. CALL LIGHT IN REACH. LUNCH ORDERED.
[2020-05-29] MEDS ORDERED: TIMOLOL MALEATE5 M2 OD (13:12)
[2020-05-29] MEDS ORDERED: LOSARTAN-HCTZ1 EACH PO (13:13)
--- NOTE | 2020-05-29 13:24 | NUR ---
PATIENT SITTING UP IN BED. CALL LIGHT IN REACH. NO FURTHER NEEDS AT THIS TIME.
--- NOTE | 2020-05-29 13:48 | NUR ---
PT ASSISTED TO BATHROOM FOR BM. NOW SITTING UP IN CHAIR WITH URINAL AT BEDSIDE. TITRATED TO RA. SATURATIONS AFTER WALK ARE 97% ON RA. HR 74. CALL LIGHT IN REACH. PT NOW WATCHING TV.
--- NOTE | 2020-05-29 15:00 | NUR ---
PHYSICAL THERAPY REPORTED PT REFUSED STATING "I'D RATHER THAN DO PHYISICAL THERAPY." DR LOBATO NOTIFIED.
--- NOTE | 2020-05-29 16:07 | NUR ---
PT AGREES TO SHOWER TODAY. PLANNING ANALYST IN TO ASSIST.
--- NOTE | 2020-05-29 16:49 | NUR ---
PATIENT UP TO BATHROOM FOR SHOWER AND BACK TO CHAIR, 1PA FWW. MARIAM CARE, SKIN CARE, SHAMPOO DONE. NEW ATTENDS AND GOWN PROVIDED. CALL LIGHT IN REACH. NO FURTHER NEEDS AT THIS TIME.
--- NOTE | 2020-05-29 16:52 | EKG ---
[facility] [address] [place] [address] Signed Atrial fibrillation Low voltage QRS Nonspecific T wave abnormality Prolonged QT Abnormal ECG When compared with ECG of 23-JAN-2020 10:54, Nonspecific T wave abnormality now evident in Lateral leads Confirmed by EDI LOBATO MD ([id number]) on 05/29/2020 4:52:16 PM Electronically Signed By: EDI LOBATO MD 05/29/20 165 PATIENT NAME: DIONICIO SHELDON Electrocardiogram DATE OF : 31 PHYSICIAN: EDI LOBATO MD REPORT #: [id number] REPORT IS CONFIDENTIAL AND NOT TO BE RELEASED WITHOUT AUTHORIZATION
[2020-05-29] MEDS ORDERED: TUMS200 MG PO (17:52)
--- NOTE | 2020-05-29 17:53 | NUR ---
MED REC COMPLETE
--- NOTE | 2020-05-29 18:34 | NUR ---
PATIENT IN CHAIR WATCHING TV. FRESH WATER GIVEN. CALL LIGHT IN REACH. NO FURTHER NEEDS AT THIS TIME.
--- NOTE | 2020-05-29 19:05 | NUR ---
REPORT RECEIVED FROM SRINATH BAUER. PATIENT RESTING IN BED WITH EYES CLOSED. BREATHING EVEN AND UNLABORED. TELE IN PLACE. NO APPARENT NEEDS AT THIS TIME, CALL LIGHT IN REACH, WILL CONT TO MONITOR.
--- NOTE | 2020-05-29 20:39 | NUR ---
MEDICATIONS ADMINISTERED, VITALS AND ASSESSMENT COMPLETE. PT HAS NO UPDATED I/O AT THIS TIME, DECLINES NEED TO USE BR. WATER PROVIDED WITH REGARD TO FLUID RESTRICTION. CBG 191, 3 UNITS SS GIVEN. VSS, A+O, SPO2 95% ON ROOM AIR. LUNGS CLEAR, HR IRREG (KNOWN AFIB), BOWEL TONES ACTIVE. NO EDEMA NOTED IN EXTREMITIES. IV FLUSHED WNL. CALL LIGHT IN REACH, NO OTHER NEEDS AT THIS TIME.
--- NOTE | 2020-05-29 21:59 | NUR ---
ROUNDED ON PATIENT, AWAKE IN BED, WATCHING TV. STATES NO NEEDS AT THIS TIME, CALL LIGHT IN REACH. WILL CONT TO MONITOR.
--- NOTE | 2020-05-30 00:08 | NUR ---
ROUNDED ON PATIENT, LAYING IN BED WITH EYES CLOSED. RR EVEN AND UNLABORED. CALL LIGHT IN REACH. NO APPARENT NEEDS AT THIS TIME.
--- NOTE | 2020-05-30 01:20 | NUR ---
emptied the urinal.
--- NOTE | 2020-05-30 02:00 | NUR ---
VITALS COMPLETE, PT AWAKE, ASSESSMENT COMPLETE. LUNGS CLEAR AND DIM IN BASES, OTHERWISE ASSESSMENT UNREMARKABLE, NO EDEMA, CMS INTACT, A+O, VSS. NO OTHER NEEDS REPORTED AT THIS TIME. CALL LIGHT IN REACH, WILL CONT TO MONITOR.
--- NOTE | 2020-05-30 03:45 | NUR ---
ROUNDED ON PATIENT, LAYING IN BED WITH EYES CLOSED, HOB ELEVATED. ON ROOM AIR. BREATHING EVEN AND UNLABORED. NO APPARENT NEEDS AT THIS TIME, CALL LIGHT IN REACH.
--- NOTE | 2020-05-30 05:30 | NUR ---
VITALS AND I/O'S COMPLETE, WEIGHT OBTAINED VIA STANDING SCALE, PT HAS NO NEEDS AT THIS TIME, IS IN GOOD SPIRITS. DISCUSSED UPDATE WITH DAUGHTER VIA PHONE. CALL LIGHT IN REACH, WILL CONTINUE TO MONITOR.
--- NOTE | 2020-05-30 07:37 | NUR ---
THIS RN RECEIVED REPORT FROM NORRIS BAUER. PT STATES THAT HE IS DOING WELL THIS AM AND THAT HIS THUMB HURTS FROM HAVING A LAB DRAW. NO OTHER COMPLAINTS OR CONCERNS THIS AM
--- NOTE | 2020-05-30 08:00 | NUR ---
PATIENT SLEEPING. WHITE BOARD UPDATED. CALL LIGHT WITHIN REACH. NO OTHER NEEDS AT THIS TIME
--- NOTE | 2020-05-30 08:23 | NUR ---
PATIENT RESTING IN BED. RN IN ROOM. PATIENT'S BREAKFAST ORDERED. CALL LIGHT WITHIN REACH. NO OTHER NEEDS AT THIS TIME
--- NOTE | 2020-05-30 09:45 | NUR ---
PATIENT RESTING IN BED. VITAL SIGNS AND I&O DONE. CALL LIGHT WITHIN REACH. NO OTHER NEEDS AT THIS TIME
--- NOTE | 2020-05-30 09:45 | NUR ---
Spoke with pt who is very hard of hearing. Wrote questions and answers. Pt. lives at [facility] and plans on returning there to his . He denies needs for dc.
--- NOTE | 2020-05-30 11:40 | NUR ---
THIS RN IN PTS ROOM TO GIVE PT HIS POTASSIUM, PT SITTING UP TO CHAIR AND THIS RN REMOVED PTS TELE AT THIS TIME. PT HAS NO COMPLAINTS OR ANYTHING TO REPORT AT THIS TIME
--- NOTE | 2020-05-30 13:25 | NUR ---
PT SITTING UP IN CHAIR. VITAL SIGNS AND I&O DONE. PT DID NOT VOID DURING THIS PERIOD. RN NOTIFIED. CALL LIGHT WITHIN REACH. NO OTHER NEEDS AT THIS TIME
--- NOTE | 2020-05-30 13:45 | NUR ---
THIS RN IN PTS ROOM TO GIVE PT HIS IV LASIX. PT RESTING SITTING UP IN THE CHAIR. PT HAS NOTHING TO REPORT OR ANY CONCERNS. PT STATES THAT HE IS FEELING NO SHORTNESS OF BREATH AND THIS RN DOES NOT SEE ANY EDEMA IN PTS LOWER LEGS
--- NOTE | 2020-05-30 14:02 | NUR ---
PT SOUND ASLEEP IN CHAIR-COULD NOT WAKE HIM. WILL CHECK BACK
--- NOTE | 2020-05-30 17:17 | NUR ---
PATIENT SITTING UP IN CHAIR. RN IN ROOM. VITAL SIGNS AND I&O DONE. HIGH BLOOD PRESSURE. RN NOTIFIED. CALL LIGHT WITHIN REACH. NO OTHER NEEDS AT THIS TIME
--- NOTE | 2020-05-30 19:15 | NUR ---
REPORT RECEIVED FROM ESTEPHANIA BAUER, PT SITTING UP IN CHAIR, STATES NO NEEDS AT THIS TIME, MADE PLAN WITH PT FOR BEDTIME. URINAL EMPTIED AND DINNER TRAY REMOVED, NO OTHER NEEDS AT THIS TIME. CALL LIGHT IN REACH, WILL CONT TO MONITOR.
--- NOTE | 2020-05-30 21:05 | NUR ---
MEDICATIONS ADMINISTERED, VITALS AND I/OS COMPLETE BY JASON ROGERS, ASSESSMENT COMPLETE. PT RESTING IN BED, WATER REFRESHED W REGARD TO FLUID RESTRICTION. PT STATES NO PAIN, NO NEEDS AT THIS TIME. LUNGS CLEAR, HR IRREG D/T CHRONIC AFIB. BOWEL TONES ACTIVE, NO EDEMA. CALL LIGHT IN REACH, WILL CONT TO MONITOR.
--- NOTE | 2020-05-30 22:50 | NUR ---
ROUNDED ON PATIENT, RESTING IN BED WITH EVEN UNLABORED BREATHING, WATCHING TV. NO NEEDS REPORTED. CALL LIGHT IN REACH.
--- NOTE | 2020-05-31 00:48 | NUR ---
CHECKED IN ON PATIENT, LAYING IN BED WITH EYES CLOSED, BREATHING EVEN AND UNLABORED. NO APPARENT NEEDS AT THIS TIME, CALL LIGHT IN REACH.
--- NOTE | 2020-05-31 02:20 | NUR ---
CHECKED ON PATIENT, LAYING IN BED WITH EYES CLOSED, BREATHING EVEN. DID NOT DISTURB, NO APPARENT NEEDS. CALL LIGHT IN REACH.
--- NOTE | 2020-05-31 03:56 | NUR ---
ROUNDED ON PATIENT. CURRENTLY LAYING IN BED WITH EYES CLOSED, BREATHING IS EVEN, NOT LABORED. CALL LIGHT IN REACH, WILL CONTINUE TO MONITOR.
--- NOTE | 2020-05-31 06:26 | NUR ---
VITALS AND I/O'S COMPLETE, ASSESSMENT COMPLETE, DAILY WEIGHT OBTAINED 98.9 KG. LUNGS CLEAR AND EQUAL, HR IRREG D/T AFIB, BOWEL TONES ACTIVE. VOIDING QS. NO EDEMA NOTED. PT STATES NO PAIN, NO SOB. WATER REFRESHED, RECORDED. CALL LIGHT IN REACH, NO OTHER NEEDS AT THIS TIME.
--- NOTE | 2020-05-31 07:36 | NUR ---
THIS RN RECIEVED REPORT FROM NORRIS BAUER. PT APPEARS TO BE RESTING COMFORTABLY IN THE BED AT THIS TIME WITH RESPIRATIONS NOTED
--- NOTE | 2020-05-31 08:02 | NUR ---
THIS RN IN PTS ROOM TO DO MORNING ASSEMENT AND GIVE MORNING MEDS. PT SLEEPING IN BED WHEN THIS RN ENTERED ROOM. THIS RN ASKED IF PT WANTED TO GET UP TO CHAIR, PT STATED HE WAS GOOD IN BED FOR NOW
--- NOTE | 2020-05-31 08:12 | NUR ---
PT STATES THAT HE HAS NO SHORTNESS OF BREATH AT REST AND THIS RN DOESN'T NOTE ANY EDEMA IN THE LOWER LEGS
--- NOTE | 2020-05-31 08:17 | NUR ---
Spoke with Alan at [facility]. Pt may return today if discharged. They will transport.
--- NOTE | 2020-05-31 12:05 | NUR ---
THIS RN IN PTS ROOM PER PT REQUEST TO ASSIST PT TO THE BEDSIDE CHAIR. PT STEADY ON HIS FEET AND STATES NO SHORTNESS OF BREATH. PT HAS CALL LIGHT AND URINAL WITHIN REACH AT THE CHAIR
--- NOTE | 2020-05-31 13:51 | NUR ---
Certified Heart Failure Nurse Notes: Diagnosis: Acute on chronic heart failure August 2014 NM/MYOCARDIAL PERF (SPECT) showed EF at 60% Admit Wt.: 225 Today's Wt.: 218 lb Admit BNP: 433 cr. 0.93 Social support system: Lives with at [facility] Weight monitoring: Scale present in home. Patient explained how to weigh daily/ identifies when to notify PCP using teach back. Symptom management: Addressed monitoring and reporting changes in weight or symptoms utilizing Zones form Diet: Eats what is available at facility dining room. "I eat everything". He denies using added salt on food. Discussed rational for low sodium diet and what foods that are typically very high in salt to avoid. Medication routine: Given by staff. Patient denies missed medications. Has been counseled on minimizing/avoiding use of NSAIDs. He states he uses Tylenol routinely for pain. Advanced directive: Not discussed at this initial visit Recommendations prior to discharge: Document ambulation oxygen saturations prior to discharge Absence of orthostatic hypotension. Discharge weight less than admit weight. Discharge BNP less than admit (as per [facility] Heart Failure DC Bundle) Barriers to self-care include: Hearing loss. Pocket talker and written communication utilized during todays visit. Teaching materials at bedside: [facility] Heart Failure bundle folder-[facility] My Action Plan Living Well with Heart Failure book, Daily weight and symptom monitoring log, Zones magnet, [facility] contact information. Given to patient and encouraged him to review.
--- NOTE | 2020-05-31 14:35 | NUR ---
this rn in pts room to check on pt. pt up to the restroom with caty stafford and then back to the chair, pt had a big bowel movement. no signs of pt having shortness of breath or swelling
--- NOTE | 2020-05-31 15:00 | NUR ---
Spoke with Dr. Shetty. Pt will not dc today.
--- NOTE | 2020-05-31 17:00 | NUR ---
Called Sherlyn at [facility], updated pt will not return today. Called daughter and updated. She will be here tomorrow to take pt to [facility]. She is concerned for constipation. Notified I will update the nurses. Spoke with Qamar rn, she will make sure pt is given meds for constipation.
--- NOTE | 2020-05-31 17:01 | NUR ---
this rn in pts room to check on pt and give him his evening meds. pt states that he needs to use the restroom. this rn stand by assist pt to the restroom. pt steady on his feet and does not appear to have any shortness of breath
--- NOTE | 2020-05-31 19:10 | NUR ---
SHIFT REPORT REVEIVED FROM ESTEPHANIA BAUER. PT IN ROOM, WATCHING TV. NO NEEDS AT THIS TIME. CALL LIGHT IN REACH.
--- NOTE | 2020-05-31 21:43 | NUR ---
ASSESSMENT, VS AND I&O COMPLETED. GCS 15, A&0 X4, DROWSY. LUNGS CLEAR, HEART TONES IRREGULAR. ABD SOFT, NONTENDER, BOWEL TONES ACTIVE. SCATTERED BRUISING NOTED. CMS INTACT. IV WNL, CDI, FLUSHED WELL. SCHEDULED MEDS PROVIDED. ICE WATER PROVIDED. NO OTHER NEEDS AT THIS TIME. CALL LIGHT IN REACH.
--- NOTE | 2020-05-31 23:30 | NUR ---
PT RESTING IN BED, EYES CLOSED. RR EVEN, UNLABORED. CALL LIGHT IN REACH.
--- NOTE | 2020-06-01 01:45 | NUR ---
PT RESTING IN BED, EYES CLOSED. RR EVEN, UNLABORED. CALL LIGHT IN REACH.
--- NOTE | 2020-06-01 03:55 | NUR ---
PT RESTING IN BED, EYES CLOSED. RR EVEN, UNLABORED. CALL LIGHT IN REACH.
--- NOTE | 2020-06-01 05:22 | NUR ---
ASSESSMENT, VS, I&O AND DW COMPLETED. GCS 15, A&O X4. LUNGS CLEAR, HEART TONES IRREGULAR. ABD SOFT, NONTENDER. CMS INTACT. TRACE EDEMA IN BLE AND HANDS. BRUISE NOTED ON BACK OF LEFT HAND. ICE WATER PROVIDED. NO OTHER NEEDS AT THIS TIME. CALL LIGHT IN REACH.
--- NOTE | 2020-06-01 09:43 | NUR ---
PT AWAKE IN BED WATCHING TELEVISION. BREAKFAST EATEN. IN TO GIVE MORNING MEDS AND COMPELTE ASSESSMENT. PT DENIES PAIN OR NAUSEA. SAYS HE SLEPT WELL AND IS EXCITED TO GO HOME TODAY. LUNGS CLEAR, BOWELS TONES ACTIVE. PT EATING AND DRINKING WELL AND VOIDING ADEQUATELY. SBA W/ FWW. IV IN RFA SLUGGISH IN FLUSHING, DRESSING STILL INTACT. VSS. BP SLIGHTLY HIGH, SCHEDULED ATENELOL GIVEN. NO FURTHER NEEDS AND THIS TIME AND CALL LIGHT IS WITHIN REACH.
[2020-06-01] MEDS ORDERED: LIPITOR20 MG PO (10:43)
[2020-06-01] MEDS ORDERED: NORVASC2.5 MG PO (10:44)
[2020-06-01] MEDS ORDERED: POTASSIUM CHLO10 ME1 PO (10:44)
[2020-06-01] MEDS ORDERED: TORSEMIDE20 MG PO (10:45)
[2020-06-01] MEDS ORDERED: LACTULOSE10 GM/152 PO (10:51)
[2020-06-01] MEDS ORDERED: XARELTO20 MG PO (10:52)
--- NOTE | 2020-06-01 11:00 | NUR ---
Spoke nicolette Velasquez and helped him get his sock on. He is ready for dc and waiting for his daughter. UPdated when I spoke with her yesterday, she was working until 10 or so and then would come to [place]. NOtified by Dr. Shetty, pt has refused PT. I will notify the daughter when she arrives.
--- NOTE | 2020-06-01 12:00 | NUR ---
VANITA INFORMEDRIENTED AND WAITING FOR HIS DAUGHTER TO ARRIVE FROM [place] TO TAKE PT HOME FOLLOWING DC. PLEASANT VISIT, FEELING INFORMED AND READY TO GO. VERY THANKFU FOR CARE HE HAS RECEIED. GAVE BLESSING, WILL FOLLOW
--- NOTE | 2020-06-01 13:00 | NUR ---
Daughter here to pick pt up, updated he declined HH PT. She states he has accepted in the past, but then declined when they arrived. Also let her know he did have bm yesterday. She denies other needs and will transport him to [facility].
--- NOTE | 2020-06-01 13:19 | NUR ---
DISCHARGE INSTRUCTIONS REVIEWED WITH DAUGHTER, COPY PROVIDED FOR SUNRIDGE AND DAUGHTER.
--- NOTE | 2020-06-01 13:24 | NUR ---
TOOK OUT PATIENT IV. DID HIS DISCHARGE VITALS. PATIENT IS EATING HIS ICE CREAM. BEFORE HE GETS DRESSED.
== END 2020-06-01 13:55 | disposition home or self-care (01) | DRG 292 ==
LOC: ED 05:58 → MS 10:10
PROVIDERS: ADMIT Internal Medicine; ATTEND Internal Medicine
DX: I11.0 Hypertensive heart disease with heart failure (principal); I48.21 Permanent atrial fibrillation; I50.33 Acute on chronic diastolic (congestive) heart failure; Z20.828 Contact with and (suspected) exposure to other viral communicable diseases; I27.20 Pulmonary hypertension, unspecified; I25.10 Atherosclerotic heart disease of native coronary artery without angina pectoris; K59.00 Constipation, unspecified; E11.9 Type 2 diabetes mellitus without complications; E78.5 Hyperlipidemia, unspecified; E79.0 Hyperuricemia without signs of inflammatory arthritis and tophaceous disease; Z79.899 Other long term (current) drug therapy; Z79.01 Long term (current) use of anticoagulants; Z79.84 Long term (current) use of oral hypoglycemic drugs
CPT/HCPCS: 36415; 70450; 71045; 80048; 80053; 81001; 83036; 83605; 83735; 83880; 84484; 85025; 85610; 93005; 93010; 94760; 96374; 97162; 97165; 97535; 99285-25; C9803; J1815; J1940; J3475; U0003

== ENCOUNTER 2020-07-18 08:07 | Emergency (ER) | payer MEDICARE, OTHER ==
[~2020-07-18] VITALS: Ht 180.3 cm; Wt 104.3 kg
[~2020-07-18 08:07] MED LIST changes: +LACTULOSE10 GM/152 PO; +LOSARTAN-HCTZ1 EACH PO; +TIMOLOL MALEATE5 M2 OD; +TORSEMIDE20 MG PO
[2020-07-18] MEDS ORDERED: AUGMENTIN 875-1 EACH PO (12:37)
== END 2020-07-18 14:34 | disposition home or self-care (01) ==
LOC: ED 08:07
PROC: 4A0D7LZ Measurement of Urinary Volume, Via Natural or Artificial Opening (ICD-10-PCS; principal; 2020-07-18)
DX: K57.32 Diverticulitis of large intestine without perforation or abscess without bleeding (principal); Z87.442 Personal history of urinary calculi; I11.0 Hypertensive heart disease with heart failure; I50.9 Heart failure, unspecified; I25.2 Old myocardial infarction; E11.9 Type 2 diabetes mellitus without complications; Z79.899 Other long term (current) drug therapy; Z79.84 Long term (current) use of oral hypoglycemic drugs
CPT/HCPCS: 51798; 74177; 80053; 81001; 85025; 99284-25; J2543; Q9967

== ENCOUNTER 2021-02-19 04:59 | Emergency (ER) | payer MEDICARE, OTHER ==
[~2021-02-19] VITALS: Ht 180.3 cm; Wt 104.3 kg
[~2021-02-19 04:59] MED LIST changes: +AUGMENTIN 875-1 EACH PO
== END 2021-02-19 07:15 | disposition home or self-care (01) ==
LOC: ED 04:59
DX: K91.840 Postprocedural hemorrhage of a digestive system organ or structure following a digestive system procedure (principal); I11.0 Hypertensive heart disease with heart failure; I50.9 Heart failure, unspecified; E11.9 Type 2 diabetes mellitus without complications; I25.2 Old myocardial infarction; Z79.84 Long term (current) use of oral hypoglycemic drugs; Z79.899 Other long term (current) drug therapy
CPT/HCPCS: 85025; 85610; 85730; 96374; 99283-25

== ENCOUNTER 2021-03-31 08:22 | Emergency (ER) | payer MEDICARE, OTHER ==
[~2021-03-31] VITALS: Ht 180.3 cm; Wt 104.3 kg
[2021-03-31] MEDS ORDERED: TAMSULOSIN HCL0.4 MG PO (08:46)
== END 2021-03-31 11:48 | disposition home or self-care (01) ==
LOC: ED 08:22
DX: N20.0 Calculus of kidney (principal); K57.30 Diverticulosis of large intestine without perforation or abscess without bleeding; I11.0 Hypertensive heart disease with heart failure; I50.9 Heart failure, unspecified; E11.9 Type 2 diabetes mellitus without complications; I25.2 Old myocardial infarction; Z79.01 Long term (current) use of anticoagulants; Z79.84 Long term (current) use of oral hypoglycemic drugs; Z79.899 Other long term (current) drug therapy; N32.89 Other specified disorders of bladder
CPT/HCPCS: 51798; 74177; 80053; 81001; 85025; 99284-25; J7040; Q9967

== ENCOUNTER 2021-05-29 09:45 | Emergency (ER) | payer MEDICARE, OTHER ==
[~2021-05-29] VITALS: Ht 180.3 cm; Wt 98.0 kg
[~2021-05-29 09:45] MED LIST changes: +ATENOLOL25 MG PO; +CIPRO250 MG PO; +ELIQUIS5 MG PO; +NORVASC5 MG PO; +OCUVITE BLUE L1 EACH PO; +OXYCODONE HCL5 MG PO; +TIMOPTIC5 ML OD; +TIMOPTIC5 ML OPTH; +VENTOLIN HFA18 GM
== END 2021-05-29 10:46 | disposition home or self-care (01) ==
LOC: ED 09:45
DX: M79.671 Pain in right foot (principal); I11.0 Hypertensive heart disease with heart failure; I50.9 Heart failure, unspecified; I25.2 Old myocardial infarction; E11.9 Type 2 diabetes mellitus without complications; Z79.899 Other long term (current) drug therapy; Z79.84 Long term (current) use of oral hypoglycemic drugs
CPT/HCPCS: 73630; 99283-25

== ENCOUNTER 2021-09-22 06:33 | Emergency (ER) | payer MEDICARE, OTHER ==
[~2021-09-22] VITALS: Ht 180.3 cm; Wt 98.0 kg
--- NOTE | 2021-09-22 08:02 | EKG ---
[facility] [address] [place], [place] [address] Signed Atrial fibrillation Low voltage QRS Abnormal ECG No previous ECGs available Confirmed by ENDER MELO MD ([id number]) on 09/22/2021 8:02:37 AM Electronically Signed By: ENDER MELO MD 09/22/21 0802 PATIENT NAME: DIONICIO SHELDON Electrocardiogram DATE OF : 31 PHYSICIAN: ENDER MELO MD REPORT #: [id number] REPORT IS CONFIDENTIAL AND NOT TO BE RELEASED WITHOUT AUTHORIZATION
== END 2021-09-22 09:20 | disposition home or self-care (01) ==
LOC: ED 06:33
DX: R07.9 Chest pain, unspecified (principal); I25.2 Old myocardial infarction; I11.0 Hypertensive heart disease with heart failure; I50.9 Heart failure, unspecified; E11.9 Type 2 diabetes mellitus without complications; Z79.899 Other long term (current) drug therapy; Z79.01 Long term (current) use of anticoagulants; Z79.84 Long term (current) use of oral hypoglycemic drugs
CPT/HCPCS: 36415; 71045; 80053; 83735; 83880; 84484; 85025; 85610; 93005; 93010; 99285-25; A9270

== ENCOUNTER 2022-07-27 12:40 | Emergency (ER) | payer MEDICARE, OTHER ==
[~2022-07-27] VITALS: Ht 180.3 cm; Wt 98.0 kg
--- OUTSIDE RECORDS SUMMARY | 2022-07-27 12:44 | XMS ---
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 [facility]ee VISIT COUNT (12 MO.) [address] [place] [address] TOTAL 3 NOTE: Visits indicate total known visits. ED/UCC VISIT TRACKING (12 MO.) 07/27/2022 12:40 [facility] TYPE: Emergency COMPLAINT: - ALTERED MENTAL STATUS 06/28/2022 04:04 [facility] TYPE: Emergency COMPLAINT: - PAIN DIAGNOSES: - Old myocardial infarction - Type 2 diabetes mellitus without complications - group home (current) use of oral hypoglycemic drugs - Essential (primary) hypertension - Retention of urine, unspecified - Heart failure, unspecified - Other rn long term care (current) drug therapy - Unspecified atrial fibrillation - group home (current) use of anticoagulants - Dysuria 09/22/2021 06:[address] [facility] [place] TYPE: Emergency COMPLAINT: - CHEST PAIN DIAGNOSES: - Chest pain, unspecified - Pain in right arm - Hypertensive heart disease with heart failure - long term care pharmacist (current) use of oral hypoglycemic drugs - Other rn long term care (current) drug therapy - Old myocardial infarction - Heart failure, unspecified - Type 2 diabetes mellitus without complications - long term care pharmacist (current) use of anticoagulants INPATIENT VISIT TRACKING (12 MO.) No inpatient visits to display in this time frame [email or web address]
[2022-07-27] MEDS ORDERED: FLOMAX0.4 MG PO (12:56)
[2022-07-27] MEDS ORDERED: CEFDINIR300 MG PO (14:47)
== END 2022-07-27 15:22 | disposition home or self-care (01) ==
LOC: ED 12:40
PROC: 4A0D7LZ Measurement of Urinary Volume, Via Natural or Artificial Opening (ICD-10-PCS; principal; 2022-07-27)
DX: N39.0 Urinary tract infection, site not specified (principal); I11.0 Hypertensive heart disease with heart failure; I50.9 Heart failure, unspecified; I25.2 Old myocardial infarction; E11.9 Type 2 diabetes mellitus without complications; I48.91 Unspecified atrial fibrillation; Z79.899 Other long term (current) drug therapy; Z79.01 Long term (current) use of anticoagulants
CPT/HCPCS: 51798; 81001; 99285